=== PATIENT | male | born 1935 | race Caucasian/White ===

== ENCOUNTER → 2023-05-16 09:05 | Outpatient (REF) | payer OTHER, SELFPAY ==
[2023-05-16 09:40] LABS: % Basophils 1.2 % (0-2); % Eosinophils 4.8 % (0-6); % Immature Granulocytes 0.2 % (0-0.5); % Lymphocytes 22.7 % (20.5-51.1); % Monocytes 9.2 % (1.7-9.3); % Neutrophils 61.9 % (42.2-75.2); Absolute Basophils 0.1 10^3/uL (0-0.2); Absolute Eosinophils 0.2 10^3/uL (0-0.7); Absolute Lymphocytes 0.9 10^3/uL (1.2-3.4); Absolute Monocytes 0.4 10^3/uL (0.1-0.6); Absolute Neutrophils 2.6 10^3/uL (1.4-6.5); Hematocrit 41.3 % (39.0-52.0); Mean Corp Hgb Conc. 33.9 g/dL (33.0-37.0); Mean Corpuscular Hgb 31.7 pg (27.0-31.0); Mean Corpuscular Volume 93.7 fL (80.0-94.0); Mean Platelet Volume 10.1 fL (7.4-10.4); Nucleated Red Blood Cells % 0 % (-); Platelet Count 171 10^3/uL (130-400); Red Blood Cell Count 4.41 10^6/uL (4.70-6.10); Red Cell Dist. Width 13.2 % (11.5-14.5); White Blood Cell Count 4.1 10^3/uL (4.8-10.8)
[2023-05-16 09:58] LABS: Glycohemoglobin (HgbA1c) 5.8 % (4.0-5.6)
[2023-05-16 10:30] LABS: ALT (SGPT) 22 U/L (0-50); AST (SGOT) 34 U/L (17-59); Albumin 3.6 g/dl (3.5-5.0); Alkaline Phosphatase 78 U/L (38-126); Blood Urea Nitrogen 30 mg/dl (9-20); Calcium 9.1 mg/dl (8.4-10.2); Carbon Dioxide 29 mmol/L (22-30); Chloride 104 mmol/L (98-107); Glucose 97 mg/dl (70-99); HDL Cholesterol 95 mg/dl; LDL Cholesterol, Calculated 101 mg/dl; Potassium 4.4 mmol/L (3.5-5.1); Sodium 138 mmol/L (135-145); Total Bilirubin 1.1 mg/dl (0.2-1.3); Total Cholesterol 208 mg/dl (50-199); Total Protein 6.6 g/dl (6.3-8.2); Triglyceride 61 mg/dl (10-149); Very Low Density Lipoprotein 12 mg/dl (0-30); eGFR 39.02
[2023-05-16 11:27] LABS: Urine Albumin Negative (Neg - Trace); Urine Bilirubin Negative (Negative); Urine Character Clear (Clear); Urine Color Yellow; Urine Glucose Negative (Negative); Urine Ketone Negative (Negative); Urine Leukocyte Negative (Negative); Urine Nitrite Negative (Negative); Urine Occult Blood Trace (Negative); Urine Specific Gravity 1.015 (<1.030); Urine Urobilinogen Negative (Neg - 1+); Urine pH 6.5 (5.0-9.0)
[2023-05-16 12:12] LABS: Urine Amorphous Seen; Urine Mucus Few
[2023-05-16 12:13] LABS: Urine Red Blood Cell 0-2 /HPF (0-2); Urine White Cell 0-2 /HPF (0-5)
== END ==
LOC: REG 09:05
PROVIDERS: ATTENDING PHYSICIAN Internal Medicine
DX: I10 Essential (primary) hypertension (principal); R73.01 Impaired fasting glucose; I48.91 Unspecified atrial fibrillation
CPT/HCPCS: 36415; 80053; 80061; 81003; 81015; 83036; 84443; 85025

== ENCOUNTER → 2023-07-31 06:39 | Outpatient (REF) | payer OTHER, SELFPAY ==
[2023-07-31 07:18] LABS: % Basophils 1.3 % (0-2); % Immature Granulocytes 0.5 % (0-0.5); % Lymphocytes 24.9 % (20.5-51.1); % Monocytes 9.8 % (1.7-9.3); % Neutrophils 61.5 % (42.2-75.2); Absolute Basophils 0.1 10^3/uL (0-0.2); Absolute Eosinophils 0.1 10^3/uL (0-0.7); Absolute Lymphocytes 1.6 10^3/uL (1.2-3.4); Absolute Monocytes 0.6 10^3/uL (0.1-0.6); Absolute Neutrophils 3.9 10^3/uL (1.4-6.5); Hematocrit 40.1 % (39.0-52.0); Hemoglobin 13.4 g/dL (13.0-18.0); Mean Corp Hgb Conc. 33.4 g/dL (33.0-37.0); Mean Corpuscular Hgb 31.5 pg (27.0-31.0); Mean Corpuscular Volume 94.1 fL (80.0-94.0); Mean Platelet Volume 9.5 fL (7.4-10.4); Nucleated Red Blood Cells % 0 % (-); Platelet Count 208 10^3/uL (130-400); Red Blood Cell Count 4.26 10^6/uL (4.70-6.10); Red Cell Dist. Width 13.5 % (11.5-14.5); White Blood Cell Count 6.4 10^3/uL (4.8-10.8)
[2023-07-31 07:55] LABS: ALT (SGPT) 26 U/L (0-50); AST (SGOT) 32 U/L (17-59); Albumin 3.6 g/dl (3.5-5.0); Alkaline Phosphatase 90 U/L (38-126); Blood Urea Nitrogen 29 mg/dl (9-20); Carbon Dioxide 30 mmol/L (22-30); Chloride 106 mmol/L (98-107); Glucose 93 mg/dl (70-99); Potassium 4.6 mmol/L (3.5-5.1); Sodium 139 mmol/L (135-145); Total Bilirubin 0.7 mg/dl (0.2-1.3); Total Protein 6.5 g/dl (6.3-8.2); eGFR 39.02
== END ==
LOC: REG 06:39
PROVIDERS: ATTENDING PHYSICIAN Specialist; FAMILY PHYSICIAN Internal Medicine
DX: C65.2 Malignant neoplasm of left renal pelvis (principal)
CPT/HCPCS: 80053; 85025

== ENCOUNTER → 2023-08-06 06:59 | Outpatient (REF) | payer OTHER, SELFPAY | LOC: RAD 06:59 | PROVIDERS: ATTENDING PHYSICIAN Specialist; FAMILY PHYSICIAN Internal Medicine | DX: C65.2 Malignant neoplasm of left renal pelvis (principal) | CPT/HCPCS: 74176 ==

== ENCOUNTER → 2023-08-29 06:38 | Outpatient (REF) | payer OTHER, SELFPAY ==
[2023-08-29 07:28] LABS: % Basophils 1.6 % (0-2); % Eosinophils 4.8 % (0-6); % Immature Granulocytes 0.5 % (0-0.5); % Lymphocytes 18.6 % (20.5-51.1); % Monocytes 10.2 % (1.7-9.3); % Neutrophils 64.3 % (42.2-75.2); Absolute Basophils 0.1 10^3/uL (0-0.2); Absolute Eosinophils 0.4 10^3/uL (0-0.7); Absolute Lymphocytes 1.4 10^3/uL (1.2-3.4); Absolute Monocytes 0.8 10^3/uL (0.1-0.6); Absolute Neutrophils 4.7 10^3/uL (1.4-6.5); Hematocrit 37.4 % (39.0-52.0); Hemoglobin 12.9 g/dL (13.0-18.0); Mean Corp Hgb Conc. 34.5 g/dL (33.0-37.0); Mean Corpuscular Hgb 31.9 pg (27.0-31.0); Mean Corpuscular Volume 92.3 fL (80.0-94.0); Mean Platelet Volume 9.3 fL (7.4-10.4); Nucleated Red Blood Cells % 0 % (-); Platelet Count 267 10^3/uL (130-400); Red Blood Cell Count 4.05 10^6/uL (4.70-6.10); Red Cell Dist. Width 13.3 % (11.5-14.5); White Blood Cell Count 7.3 10^3/uL (4.8-10.8)
[2023-08-29 07:31] LABS: Urine Albumin Negative (Neg - Trace); Urine Bilirubin Negative (Negative); Urine Character Clear (Clear); Urine Color Yellow; Urine Glucose Negative (Negative); Urine Ketone Negative (Negative); Urine Leukocyte Negative (Negative); Urine Nitrite Negative (Negative); Urine Occult Blood Trace (Negative); Urine Specific Gravity 1.015 (<1.030); Urine Urobilinogen Negative (Neg - 1+); Urine pH 6.5 (5.0-9.0)
[2023-08-29 08:07] LABS: ALT (SGPT) 20 U/L (0-50); AST (SGOT) 41 U/L (17-59); Albumin 3.4 g/dl (3.5-5.0); Alkaline Phosphatase 87 U/L (38-126); Blood Urea Nitrogen 27 mg/dl (9-20); Carbon Dioxide 24 mmol/L (22-30); Chloride 107 mmol/L (98-107); Glucose 99 mg/dl (70-99); Potassium 4.7 mmol/L (3.5-5.1); Sodium 135 mmol/L (135-145); Total Protein 6.6 g/dl (6.3-8.2); eGFR 33.93
[2023-08-29 08:17] LABS: Erythrocyte Sed Rate 43 mm/hour (0-20)
[2023-08-29 08:28] LABS: TSH Reflex To Free T4 2.66 uIU/ml (0.47-4.68)
[2023-08-29 08:33] LABS: Urine Red Blood Cell 0-2 /HPF (0-2)
[2023-08-29 08:34] LABS: Urine White Cell 0-2 /HPF (0-5)
== END ==
LOC: REG 06:38
PROVIDERS: ATTENDING PHYSICIAN Internal Medicine
DX: R05.1 Acute cough (principal); R73.01 Impaired fasting glucose; I10 Essential (primary) hypertension; R53.83 Other fatigue; N30.00 Acute cystitis without hematuria; M31.6 Other giant cell arteritis
CPT/HCPCS: 36415; 71046; 80053; 81003; 81015; 84443; 85025; 85652

== ENCOUNTER → 2023-09-05 15:12 | Outpatient (REF) | payer OTHER, SELFPAY | LOC: RCS 15:12 | PROVIDERS: ATTENDING PHYSICIAN Internal Medicine Cardiovascular Disease; FAMILY PHYSICIAN Internal Medicine | DX: Z95.2 Presence of prosthetic heart valve (principal) | CPT/HCPCS: 93306 ==

== ENCOUNTER 2023-09-08 16:17 | Inpatient (IN) | payer OTHER, SELFPAY ==
[2023-09-08 10:20] VITALS: BMI 25.5
[2023-09-08 10:25] VITALS: BP 101/65
[2023-09-08 10:58] LABS: % Eosinophils 2.7 % (0-6); % Immature Granulocytes 0.3 % (0-0.5); % Lymphocytes 14.8 % (20.5-51.1); % Monocytes 11.7 % (1.7-9.3); % Neutrophils 69.5 % (42.2-75.2); Absolute Basophils 0.1 10^3/uL (0-0.2); Absolute Eosinophils 0.2 10^3/uL (0-0.7); Absolute Lymphocytes 1.2 10^3/uL (1.2-3.4); Absolute Monocytes 0.9 10^3/uL (0.1-0.6); Absolute Neutrophils 5.4 10^3/uL (1.4-6.5); Hematocrit 39.3 % (39.0-52.0); Hemoglobin 13.3 g/dL (13.0-18.0); Mean Corp Hgb Conc. 33.8 g/dL (33.0-37.0); Mean Corpuscular Hgb 30.9 pg (27.0-31.0); Mean Corpuscular Volume 91.4 fL (80.0-94.0); Mean Platelet Volume 9.5 fL (7.4-10.4); Nucleated Red Blood Cells % 0 % (-); Platelet Count 248 10^3/uL (130-400); Red Cell Dist. Width 13.6 % (11.5-14.5); White Blood Cell Count 7.8 10^3/uL (4.8-10.8)
[2023-09-08 11:18] LABS: ALT (SGPT) 17 U/L (0-50); AST (SGOT) 41 U/L (17-59); Albumin 3.5 g/dl (3.5-5.0); Alkaline Phosphatase 80 U/L (38-126); Blood Urea Nitrogen 38 mg/dl (9-20); Calcium 9.2 mg/dl (8.4-10.2); Carbon Dioxide 27 mmol/L (22-30); Chloride 107 mmol/L (98-107); Glucose 112 mg/dl (70-99); Potassium 4.6 mmol/L (3.5-5.1); Sodium 140 mmol/L (135-145); Total Bilirubin 1.2 mg/dl (0.2-1.3); Total Protein 6.9 g/dl (6.3-8.2); eGFR 28.46
[2023-09-08 11:27] LABS: NT-proBNP 742 pg/ml
--- NOTE | 2023-09-08 11:34 | ED.GENMED ---
History of Present Illness
General
Chief Complaint: Weakness
Source: patient and spouse
Exam Limitations: none
Time Seen by Provider: 09/08/23 11:19
Nursing documentation reviewed up to this point in time: agreed with
History of Present Illness
History of Present Illness:
88-year-old male presents emergency department due to decreased energy, and unable to tolerate ambulation. He states he was recently diagnosed with congestive heart failure by his family physician. He follows with Dr. Ring, and has had
multiple ablations for A-fib.
Past History
Past History
ED Past Medical History: Other (Kidney stones)
ED Past Surgical History: Cardiac (Porcine valve replacement) and Other (Cystoscopy with ureteral stone removal, and stent placement)
Social History
Tobacco: Non-smoker
Alcohol: Occasional
Personal:
Living: with family
Employment: Retired
Family History
Family History: Negative CAD
Review of Systems
Review of Systems
Allergies reviewed?: Yes
All Other Systems: Not applicable
Constitutional: Reports no symptoms
EENT: Reports no symptoms
Respiratory: Reports trouble breathing
Cardiac: Reports no symptoms
ABD/GI: Reports no symptoms
: Reports no symptoms
Musculoskeletal: Reports no symptoms
Skin: Reports no symptoms
Neurological: Reports no symptoms
Endocrine: Reports no symptoms
Hematologic/Lymphatic: Reports no symptoms
Psychiatric: Reports no symptoms
Phy Exam
Physical Exam
Physical Exam:
Physical Exam
General: Afebrile
Neck: supple. no meningeal signs. normal posterior pharynx
Heart: s1/s2 regular rate and rhythm, no murmur. equal radial
pulses.
HEENT: Pupils equal round reactive to light, EOMI
Lungs: Moderate respiratory distress. clear bilaterally
Abdomen: normal bowel sounds. not tender. no CVAT
Neuro: alert and oriented. no focal neurological deficits cranial nerves II through XII intact
Skin: no rash
Psychiatric: well kept. interactive and cooperative
Extremities: no edema. no calf tenderness. negative homans. good distal pulses
Scores
Heart Failure Risk
Heart Failure Risk Score: Yes
History of Stroke or TIA: No
History of intubation for respiratory distress: No
Heart rate on ED arrival >/= 110: No
SaO2 <90% on arrival on room air: Yes
HR >/=110 during 3min walk test (or too ill to perform test): Yes
ECG has acute ischemic changes: No
Urea >/=12mmol/L (BUN 33.6mg/dL): Yes
Serum CO2>/=35mmol/L: No
Troponin I or T elevated to MT Level (0.4mg/dL): No
NT-proBNP >/=5,000ng/L (5,000pg/ml): No
HF Risk Score: 4
Admission Status: HIGH RISK 26.1% Consider SNF treatment or admission to hospital
Course
Orders/Labs/Results
Orders:
Orders
09/08/23 10:30
Electrocardiogram (*1) Urgent
Reason for Study: Shortness of Breath
EKG- Treatment ONCE
09/08/23 10:37
CMP [Comprehensive Metabolic Panel] Urgent
Complete Blood Count/With Diff Urgent
NT-proBNP Urgent
Troponin I Urgent
Comment: ADD ON
09/08/23 11:33
Add On- LAB Urgent
Tests Added?: troponin
CR Chest - 2 Views Urgent
Comment:
Reason For Exam: short of breath
09/08/23 12:28
Furosemide [Lasix] 40 mg IV NOW STA
09/08/23 Dinner
Cholesterol Lowering
Fluid Restriction: 1920 mL/day (64 oz)
Cholesterol Lowering: Sodium, 2 Gram
09/08/23 15:32
Admit/Transfer Patient As Directed
Co-Sign Provider:
Level of Care: Inpatient admission
Assign to:: Telemetry
Physician / Group: Dr. Salvatore Jalloh/Hospitalists
Diagnosis: Hypoxia, Concern for CHF
Reason for Telemetry: Acute Heart Failure
Date to Stop Telemetry: 09/11/23
Time to Stop Telemetry: 11:00
Reason for Hospitalization: Hypoxia, Concern for CHF
Expected length of stay greater than two midnights?: Yes
ELOS- Estimated Length of Stay in days: 3
I certify the patient meets the requirements for IP care: Yes
09/08/23 15:33
Code Status As Directed
Resuscitation Status: Full Code
09/08/23 15:41
CARDIOLOGY CONSULT Routine
Consulting Provider: Vanita Rueda
Was physician already notified: Yes
Reason for consult: New-Onset CHF?
09/08/23 15:42
PULMONARY CONSULT Routine
Consulting Provider: Ryan Martínez
Was physician already notified: Yes
Reason for consult: Recent Hemoptysis and wt loss, even after finishing Lasix continued wt loss
09/08/23 17:21
Troponin I Q6H
Bisacodyl [Dulcolax] 10 mg RECTAL [id number] PRN
Docusate W/Senna [Senokot-S] 1 tablet PO BIDPRN PRN
Polyethylene Glycol Powder [Miralax] 17 grams PO DAILYPRN PRN
Zolpidem Tartrate [Ambien] 5 mg PO HSPRN PRN
09/08/23 17:21
Activity As Directed
Activity Level: As Tolerated
Intake/ Output As Directed
Frequency: q12h
Pneumatic Compression Sleeves As Directed
Type: Knee high
Vital Signs As Directed
Frequency: Per unit guidelines
Weight As Directed
Frequency: Daily
O2 Therapy [RESP] Routine
Titrate/Wean O2 to maintain O2 sat greater than (%): 91
DX Deep Vein Thrombosis Video Routine
09/08/23 18:00
simvastatin 10 mg PO QPM
09/08/23 20:00
Apixaban [Eliquis] 5 mg PO BID
09/08/23 22:00
Amiodarone [Pacerone] 200 mg PO HS
Finasteride [Proscar] 5 mg PO HS
09/08/23 23:21
Troponin I Q6H
09/09/23 05:21
Troponin I Q6H
09/09/23 06:00
Basic Metabolic Panel IN AM
Complete Blood Count/No Diff IN AM
Magnesium IN AM
09/09/23 08:00
Furosemide [Lasix] 40 mg IV BID AT 0800,1600
[id number] C-Mn [Glucosamine Chondroitin MaxStr] 1 cap PO DAILY
09/09/23 11:21
Troponin I Q6H
09/09/23 17:21
Troponin I Q6H
09/09/23 23:21
Troponin I Q6H
09/10/23 06:00
Basic Metabolic Panel IN AM
Complete Blood Count/No Diff IN AM
Magnesium IN AM
09/11/23 06:00
Basic Metabolic Panel IN AM
Complete Blood Count/No Diff IN AM
09/11/23 11:00
DC Protocol for Telemetry ONCE
09/12/23 06:00
Basic Metabolic Panel IN AM
Complete Blood Count/No Diff IN AM
09/13/23 06:00
Basic Metabolic Panel IN AM
Complete Blood Count/No Diff IN AM
09/14/23 06:00
Basic Metabolic Panel IN AM
Complete Blood Count/No Diff IN AM
09/15/23 06:00
Basic Metabolic Panel IN AM
Complete Blood Count/No Diff IN AM
09/16/23 06:00
Basic Metabolic Panel IN AM
Complete Blood Count/No Diff IN AM
09/17/23 06:00
Basic Metabolic Panel IN AM
Complete Blood Count/No Diff IN AM
09/18/23 06:00
Basic Metabolic Panel IN AM
Complete Blood Count/No Diff IN AM
Abnormal Lab Results
09/08/23
10:37
RBC 4.30 L 10^6/uL
(4.70-6.10)
Absolute Monos (auto) 0.9 H 10^3/uL
(0.1-0.6)
Lymphocytes % 14.8 L %
(20.5-51.1)
Monocytes % 11.7 H %
(1.7-9.3)
BUN 38 H mg/dl
(9-20)
Creatinine 2.2 H mg/dL
(0.7-1.3)
Glucose 112 H mg/dl
(70-99)
09/08/23 10:37
09/08/23 10:37
Vital Signs
Initial and Last Documented VS:
Initial Vital Signs
Temp Pulse Resp BP Pulse Ox
97.7 F 75 20 101/65 90
09/08/23 10:25 09/08/23 10:25 09/08/23 10:25 09/08/23 10:25 09/08/23 10:25
Last Documented Vital Signs
Temp Pulse Resp BP Pulse Ox
97.7 F 71 23 133/82 94
09/08/23 10:25 09/08/23 14:15 09/08/23 14:15 09/08/23 13:00 09/08/23 14:15
MDM/Problems Addressed
Differential Diagnosis Includes:
CHF, pneumonia
MDM/Problems Addressed:
88-year-old male with CHF exacerbation. IV Lasix given. Admit to hospitalist.
Chronic conditions affecting care: Cardiomyopathy and Arrhythmia
Acute Exacerbation and/or Progression of Chronic Illness: Cardiomyopathy and Arrhythmia
*Radiology
Radiology exam reviewed: radiology read reviewed (Chest x-ray 08/29/2023 shows CHF)
*Pulse Oximetry
Patient hypoxic: yes
*EKG
Interpreted by ED Provider?: Yes
EKG Intrepretation Date: 09/08/23
EKG Intrepretation Time: 10:34
Interpretation: normal
Comparison EKG: no changes
Heart Rate: 73
Rate: normal
Rhythm: sinus
Spring: left axis deviation
Interval: normal interval
QRS Pattern: left vent hypertrophy
Ischemia: no ischemia
*Nurse Anesthetist Interpretation
Rate: normal
Interpretation: normal
Heart Rate: 70
Rhythm: sinus
*Critical Care Note
Total Time (30-74mins, 75-104mins- exclusive of procedures): Not Applicable
Data Reviewed
Further Testing Considered But Not Given:
CT chest not indicated
Patient Management
Social determinants of health affecting care: Living situation
Discussion with other providers: Hospitalist
Escalation/DeEscalation of care consider admission/obs:
Admit indicated
ED Attending Note
-
Portions of this chart may have been created with voice recognition software.� Occasional wrong word or��sound alike� substitutions may have occurred due to the inherent limitations of voice recognition software.
Discharge Plan
Departure
Patient Disposition: Admit
Date of Disposition: 09/08/23
Time of Disposition: 12:28
Admit to: Telemetry
Presentation/result/management discussed w/ accepting MD/DO: Hospitalist
Patient with high blood pressure during this ER visit?: No
Condition: Fair
Discharge Problem:
Acute exacerbation of CHF (congestive heart failure)
Interventions
Interventions:
*General Assessment Last Done: 09/08/23 10:25
ED- Fall Risk Assessment Last Done: 09/08/23 11:26
*ED COVID-19 Vaccine History Last Done: 09/08/23 10:25
ED- Cardiac Assessment Last Done: 09/08/23 11:26
ED- Neurological Assessment Last Done: 09/08/23 11:26
ED- Pulmonary Assessment Last Done: 09/08/23 11:26
[2023-09-08 12:39] VITALS: BP 111/78
[2023-09-08] MEDS: LASIX 40 MG IV (12:54)
[2023-09-08 13:00] VITALS: BP 133/82
--- NOTE | 2023-09-08 14:49 | HPS.HSE ---
Family Physician
-
Family Physician: Brant Kruse
Chief Complaint
-
Decreased energy, shortness of breath with exertion
History of Present Illness
88 y/o male with past medical history of a-fib status post cardioversion, atrial tachycardia, atrial valve repair, aortic valve replacement 2007, LBBB intra-op, nephrolithiasis, cystoscopy with ureteral stone removal, and stent placement, bladder
cancer, multiple TURBTs, robotic partial prostatectomy, bilateral robotic inguinal hernia repair, robotic left nephroureterectomy, BPH, hyperlipidemia, and cardiac porcine valve replacement presented with weight loss and shortness of breath with
exertion. Patient says his symptoms started about 2 to 3 weeks ago when he was coughing up blood (2 episodes) and a CXR 2 weeks ago suggested CHF, therefore he was started on Lasix which was given for 3 days. He is reporting shortness of breath on
exertion, but not at rest. He has lost 9 lbs over the past 9 days, but has continued to lose weight despite stopping Lasix. Patient has been taking his Eliquis at home. In the ER, he was requiring 3 liters of NC oxygen, he does not usually wear
oxygen at home.
Medical History
Past Medical History
Past Medical History: Reports Other (As per HPI above)
Past Surgical History: Reports Other (As per HPI above)
Social History
Tobacco: Non-smoker
Alcohol: None
Drug: None
Family History
Family History: Not pertinent
Allergies / Home Medications
Allergies reflects when Allergies were last updated in [facility].
Home Medications with original date entered in [facility]
Allergy/Medication List:
Allergies
Allergy/AdvReac Type Severity Reaction Status Date / Time
No Known Allergies Allergy Verified 09/08/23 10:30
Home Medications
finasteride 5 mg tablet 5 mg PO HS prostate 05/25/10
simvastatin 10 mg tablet 10 mg PO QPM High cholesterol 09/04/19
apixaban 5 mg tablet (Eliquis) 5 mg PO BID Blood Clot Prevention/Tx 04/20/20
amiodarone 200 mg tablet 200 mg PO HS Arrhythmia 07/20/22
zolpidem 5 mg tablet 5 mg PO HSPRN PRN sleep 09/12/22
lywsiyjmzai-cqufmgexk-frd C-Mn 500 mg-400 mg capsule (Glucosamine Chondroitin Maximum Strength) 1 cap PO DAILY 02/19/23
Review of Systems
-
A 12 point ROS was completed and negative except as noted: Yes
Physical Exam
Vital Signs
Vital Signs
Temp Pulse Resp BP Pulse Ox
97.7 F 71 23 133/82 94
09/08/23 10:25 09/08/23 14:15 09/08/23 14:15 09/08/23 13:00 09/08/23 14:15
Physical Exam
General: No Apparent Distress
HEENT: NormoCephalic, Moist mucous membranes and Atraumatic
Respiratory: Clear
Cardiac: S1/S2 and Regular Rhythm
GI: Soft, Non Tender and Normal Bowel Sounds
Musculoskeletal: No Cyanosis and No Edema
Skin: Warm and Dry
Psych: Calm and Intact Judgment/Insight
Laboratory Results
-
09/08/23 10:37
09/08/23 10:37
Laboratory Results
Total Bilirubin 1.2 mg/dl (0.2-1.3) 09/08/23 10:37
AST 41 U/L (17-59) 09/08/23 10:37
ALT 17 U/L (0-50) 09/08/23 10:37
Alkaline Phosphatase 80 U/L (38-126) 09/08/23 10:37
Troponin I 0.020 ng/ml 09/08/23 10:37
Impression/Plan
-
Assessment/Plan

Echocardiogram 09/05/23 report, as per cardiology:
CONCLUSIONS
Normal left ventricular size and systolic function. No regional wall motion
abnormalities are seen. LV ejection fraction is 60-65% by Cooney's method of
discs. Mild concentric left ventricular hypertrophy. Stage III diastolic
dysfunction suggestive of restrictive filling pattern and increased filling
pressures.
Dilated right ventricle with normal systolic function.
Severely dilated atria.
Mild to moderate mitral regurgitation.
Well-seated #23 mm stentless freestyle aortic valve with peak/mean gradients at
10/5 mmHg.
Moderate tricuspid regurgitation. Estimated pulmonary artery pressure of 57
mmHg assuming a right atrial pressure of 3 mmHg.
Compared to prior study dated 09/23/2019, there is no significant change, prior
aortic valve gradients were peak/mean 9/5 mmHg

Acute Hypoxic Respiratory Insufficiency
Shortness of Breath on Exertion
Concern for New-Onset CHF
Transient Hemoptysis a Few Weeks Ago
-Recently was told by his PCP that he may have new-onset CHF
-He took Lasix outpatient for 3 days, about 1 week prior to presentation, but developed worsening shortness of breath after finishing his 3-day Lasix course
-Weight today is 90 kg, on August 21, 2023 it was 92 kg
-CXR suggest CHF
-proBNP 742: indeterminate given his age
-Echo was done on 09/05/23, results ar above
-Trend troponins
-Continue IV Lasix
-Daily weights
-I's and O's
JUAN vs. CKD
-Monitor BMP with diuresis
Weight Loss During the 9 days prior to presentation
-Patient was given Lasix by outpatient provider for 3 days about 1 week prior to presentation, lost weight while taking it, but continued to lose weight for the several days after stopping Lasix
A-fib status post cardioversion
Atrial tachycardia
Atrial valve repair
-Monitor on telemetry
-Continue Amiodarone
-Continue home Eliquis
Aortic valve replacement 2007
History of LBBB intra-op
Nephrolithiasis
Cystoscopy with ureteral stone removal, and stent placement
Bladder cancer status post multiple TURBTs
Robotic partial prostatectomy
Bilateral robotic inguinal hernia repair
Robotic left nephroureterectomy
BPH
-Continue Finasteride
Hyperlipidemia
-Continue Simvastatin
Cardiac porcine valve replacement
DVT PPx: Eliquis
Code Status: Full Code
--- NOTE | 2023-09-08 16:24 | CON.PUL ---
Consultation
Consultation Request
Date/Time Consultation Requested: 09-08-23
Date/Time Consultation Performed: 09-08-23
Requesting Provider: Hospitalist Gayla
Performing Provider: Dr Martínez
Reason for Consultation: dyspnea
Medical History
-
Chief Complaint: dyspnea
History of Present Illness:
Mr Omari Trivedi is a delightful 88/M adm 09-07 with a 3 wk h/o worsening dyspnea on decreasing levels of exertion.
2.5 wks ago, he developed a brief episode of cough productive of few streaks of red blood, the next morning a minute clot was expectorated, no further eventes since then.
He cut tree branches in his property last week, a chore that usually takes him 1.5 hrs, though he has done it before even in hot weather, it took him a couple of mornings to complete the task.
For last few days he developed ACUÑA while climbing stairs at home. Denies CP, wheezing, dizziness, fever, presyncopal symptoms, ANGELIQUE edema.
During the recent wave of hot weather he was drinking a higher than usual volume of carbonated juice. CXR on 08-28 suggested heart failure and was given a 3 d course of lasix without significant improvement
At ER, POx 90% on RA, afebrile, low normal BP, required 3L O2 by NC, received one IV dose of lasix at 40 mg. Seen at telemetry, accompanied by his kind Patience. Reports improvement of dyspnea, calm, cooperative
Nonsmoker
Past Medical History
Past Medical History: Other (see A&P for PMH/PSH)
Social History
Tobacco: Non-smoker
Alcohol: None
Drug: None
Personal:
Living: With Family
Employment: Retired
Family History
Family History: Reviewed & Not Pertinent
Allergies / Home Medications
Allergies
Allergy/AdvReac Type Severity Reaction Status Date / Time
No Known Allergies Allergy Verified 09/08/23 10:30
Home Medications
�Medication �Instructions �Recorded �Confirmed �Last Taken �Type
finasteride 5 mg tablet 5 mg PO HS prostate 05/25/10 09/08/23 09/07/23 History
simvastatin 10 mg tablet 10 mg PO QPM High cholesterol 09/04/19 09/08/23 09/07/23 History
apixaban 5 mg tablet (Eliquis) 5 mg PO BID Blood Clot 04/20/20 09/08/23 09/08/23 History
Prevention/Tx
amiodarone 200 mg tablet 200 mg PO HS Arrhythmia 07/20/22 09/08/23 09/07/23 History
zolpidem 5 mg tablet 5 mg PO HSPRN PRN sleep 09/12/22 09/08/23 02/22/23 00:00 History
kfxqebievnj-dgkpjrzvc-wbz C-Mn 500 1 cap PO DAILY 02/19/23 09/08/23 09/08/23 History
mg-400 mg capsule (Glucosamine
Chondroitin Maximum Strength)
Review of Systems
-
History Source: Patient
All other systems: Negative unless noted
Constitutional: Fatigue
Respiratory: Trouble Breathing
Neuro: Weakness
Vitals / Labs / Diagnostic Testing
Vital Signs
Temp Pulse Resp BP Pulse Ox
97.7 F 71 23 133/82 94
09/08/23 10:25 09/08/23 14:15 09/08/23 14:15 09/08/23 13:00 09/08/23 14:15
Lab Data
09/08/23 10:37
09/08/23 10:37
Diagnostic Testing:
Physical Exam
-
HEENT: Normocephalic, Moist Mucous Membranes and Thrush (n)
Cardiovascular: Regular Rhythm, Peripheral Edema (n), Calf Tenderness (n) and JVD (trace)
Respiratory: Wheeze (n), Rales (posterior basilar), Rhonchi (n) and Accessory Resp Muscle Use (trace)
GI: Soft, Non Distended, Non Tender and Normal Bowel Sounds
Neurology: Awake, AO x 3 and No Motor Deficits
Skin: Warm
General: Respiratory Distress (trace)
Assessment
-
Assessment:
Mr Omari Trivedi is a delightful 88/M adm 09-07 with a 3 wk h/o worsening dyspnea on decreasing levels of exertion. 2.5 wks ago, he developed a brief episode of cough productive of few streaks of red blood, the next morning a minute clot was
expectorated, no further eventes since then. He cut tree branches in his property last week, a chore that usually takes him 1.5 hrs, though he has done it before even in hot weather, it took him a couple of mornings to complete the task. For last
few days he developed ACUÑA while climbing stairs at home. Denies CP, wheezing, dizziness, fever, presyncopal symptoms, ANGELIQUE edema. During the recent wave of hot weather he was drinking a higher than usual volume of carbonated juice. CXR on 08-28
suggested heart failure and was given a 3 d course of lasix without significant improvement
At ER, POx 90% on RA, afebrile, low normal BP, required 3L O2 by NC, received one IV dose of lasix at 40 mg. Seen at telemetry, accompanied by his kind Patience. Reports improvement of dyspnea, calm, cooperative
Impression:
HFpEF: pulmonary edema
Diastolic dysfunction
Mild to moderate MReg
Negative troponin
BNP normal for age
A/CKI
S/p mild self-limited hemoptysis 2.5 wks MAGNETIC DOCTOR
Conditions MAGNETIC DOCTOR:
AFib s/p CV, on apixaban, amiodarone at 200 mg qd
Atrial tachycardia
Biological AV replacement 2007 [facility]
Nephrolithiasis, cystoscopy with ureteral stone removal, and stent placement
Bladder cancer
Multiple TURBTs, robotic partial prostatectomy (BPH), bilateral robotic inguinal hernia repair, robotic left nephroureterectomy
HLD
Nonsmoker
SHAILESH calcified 6.3 mm nodule
Plan:
Continue O2 protocol
New onset O2 at 3L, POx 98%
Evaluate O2 needs PTD
Asp precs
IS
Albuterol nebs tid prn
HFpEF: pulmonary edema
Diastolic dysfunction
Mild to moderate MReg
CXR 09-07 c/w 12 and films from Feb 2021 and Mar 2016: old films with no pulm abnormalities slight volume loss at L base and chronic sternotomy wiring. Latest two films with worsening pulm and vasc congestion consistent with evolving pulmonary edema
Chest CT s/c 05-03-21 with normal lung parenchyma x calcified 6.3 mm nodule at SHAILESH. Prominent azygos vein
CT abd/p 09-06-23 with lung bases showing mild increase lung water content and mosaic pattern consistent with incipient pulm edema
CT abd/p Jan 2023 with normal lung bases
CXR in AM, PA/lat, ordered
TTE 09-04: LVEF 60-65%, WMAs, stage III DD, dilated RV with normal systolic function, mild to mod MR. Well-seated #23 mm stentless freestyle aortic valve with peak/mean gradients at 10/5 mmHg. Mod TR. C/w09/23/2019, there is no significant change
Continue diuretic IV
Limited oral intake of fluids and salt
Monitor UO, wt, resp status, Cr
Trend trops and BNP
Doubt amiodarone toxicity, continue oral dose
S/p mild self-limited hemoptysis 2.5 wks MAGNETIC DOCTOR
Continue AC (AFib)
Monitor for hemoptysis, d/w RN, to provide container with lid to collect sputum
Observe off atbs or CSs
Full code
Discussed in detail with Mr Trivedi and his kind Patience at bedside, all questions answered to satisfaction
[2023-09-08 18:30] VITALS: BP 120/75; BMI 24.2
[2023-09-08 19:40] VITALS: BMI 24.2
[2023-09-08 20:25] VITALS: BP 99/56
[2023-09-08 20:42] LABS: Troponin I 0.022 ng/ml
[2023-09-08] MEDS: ELIQUIS 2.5 MG PO (20:55)
[2023-09-08] MEDS: LIPITOR 10 MG PO (20:55)
--- NOTE | 2023-09-08 20:55 | CON.CAR ---
Consultation
Consultation Request
Date/Time Consultation Requested: 09/08/23
Date/Time Consultation Performed: 09/08/23
Requesting Provider: Dr. Jalloh
Performing Provider: Dr. Rueda
Reason for Consultation: Worsening dyspnea on exertion/shortness of breath
Medical History
-
Chief Complaint: Worsening shortness of breath and dyspnea on exertion
History of Present Illness:
HPI: Omari is an 88 year old male who follows routinely with my colleague, Dr. Richardson Ring. 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
[facility]. He was recently found to have recurrent bladder tumors and had been scheduled for a repeat cystoscopy which was canceled secondary to worsening shortness of breath over the last month. He did have COVID-19 back in 2021 and felt that the
worsening of his shortness of breath was related to long-haul COVID. He denies recent URI/COVID or influenza. Approximately 3 weeks ago he had 2 episodes of hemoptysis after aggressive coughing first thing in the morning. He has had no recurrent
hemoptysis. Over last weekend he was prescribed Lasix which he took over 3 days with perhaps slightly improved symptoms. He did not continue the Lasix. This past week, he wanted to get trees trimmed on his property and spent hours outside trying
to complete this chore. He states that although he was trying to stay hydrated he was quite short of breath. Following this his shortness of breath worsened with activity such as walking up and down the stairs which she is usually able to do
without difficulty. The day of admission he developed extreme dyspnea on exertion that required him to lay down following walking up stairs. He called our office on September 05 and referred to the emergency department. He denies chest pain or
pressure. He denies orthopnea or PND. He denies wheezing. He denies fevers or chills. He denies lower extremity edema. He has had no recent interruption of anticoagulation or recent travel. He is tentatively scheduled for bladder tumor removal
September [address] Wilburn. Patient is a non-smoker and does not routinely follow with pulmonary.
Recent outpatient cardiac testing:
- 2D echocardiogram 09/05/2023: Normal left ventricular size and systolic function with no regional wall motion abnormality and EF estimated 60-65%. Mild LVH. Grade 3 diastolic dysfunction with increased LV filling pressures. Dilated right
ventricle with normal RV systolic function. Severely dilated atria. Mild to moderate MR. Well-seated number 23 mm stentless freestyle aortic valve with peak/mean gradients 10/5 mmHg. Moderate TR. Estimated pulmonary artery pressure 57 mmHg.
-A classroom monitor was also completed this past month however records are not available for my review
-Lexiscan stress test at [place] dated 06/30/2008: No evidence of myocardial ischemia or scar. EF 58%
PMH:
Paroxysmal atrial fibrillation
s/p PVI 10/08/2019
s/p PVI, posterior wall ablation, mitral annular flutter ablation 11/17/2020
s/p posterior L atrial wall ablation, right atrial tachycardia ablation 06/30/2021
Atypical atrial flutter
Atrial tachycardia
Chronic anticoagulation with Eliquis
[facility] 04/03/[address] 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
HLD
Bladder cancer
BPH
Past Medical History
Past Medical History: Other (In HPI)
Past Surgical History: Cardiac (aortic valve replacement 2007, PVI 2019, PVI 2020, Ablation 2021,), Urological and Other (Robotic partial prostatectomy 02/2020, bilateral robotic inguinal hernia repair 04/2020)
Social History
Tobacco: Non-Smoker
Alcohol: Occasional
Personal:
Living: With Family
Employment: Retired
Family History
Family History: Reviewed & Not Pertinent
Allergies / Home Medications
Allergy/AdvReac Type Severity Reaction Status Date / Time
No Known Allergies Allergy Verified 09/08/23 10:30
�Medication �Instructions �Recorded �Confirmed �Type
finasteride 5 mg tablet 5 mg PO HS prostate 05/25/10 09/08/23 History
simvastatin 10 mg tablet 10 mg PO QPM High cholesterol 09/04/19 09/08/23 History
apixaban 5 mg tablet (Eliquis) 5 mg PO BID Blood Clot 04/20/20 09/08/23 History
Prevention/Tx
amiodarone 200 mg tablet 200 mg PO HS Arrhythmia 07/20/22 09/08/23 History
zolpidem 5 mg tablet 5 mg PO HSPRN PRN sleep 09/12/22 09/08/23 History
vzyabfaajwp-zzhwcpoqf-inl C-Mn 500 1 cap PO DAILY 02/19/23 09/08/23 History
mg-400 mg capsule (Glucosamine
Chondroitin Maximum Strength)
Review of Systems
-
History Source: Patient
All other systems: Negative unless noted
Constitutional: Weight Loss and Fatigue
EENT: No Symptoms
Respiratory: Cough, Hemoptysis and Trouble Breathing
Cardiac: No Symptoms
Abdomen/GI: No Symptoms
: No Symptoms
Skin: No Symptoms
Neurological: Weakness
Hematologic/Lymphatic: No Symptoms
Physical Exam
Vital Signs
Temp Pulse Resp BP Pulse Ox
98.1 F 72 18 120/75 98
09/08/23 18:30 09/08/23 18:30 09/08/23 18:30 09/08/23 18:30 09/08/23 18:30
Lab Results
09/08/23 10:37
09/08/23 10:37
Troponin I 0.022 ng/ml 09/08/23 20:00
Qur-R-Tbubminihsh Pept 742 pg/ml 09/08/23 10:37
Physical Exam
General: Well Developed, Well Nourished and No Apparent Distress
HEENT: Normocephalic, Anicteric and Moist Mucous Membranes
Cardiac: S1/S2, Regular Rhythm and Murmur (2/6 SM); Negative Peripheral Edema or Calf Tenderness
GI: Soft, Non Tender, Non Distended and Normal Bowel Sounds
Musculoskeletal: No Clubbing, No Cyanosis and No Edema
Skin: Negative Rash
Neuro: AO x 3 and Nonfocal/Grossly Intact
Psych: Calm
Impression / Plan
-
PCP: Dr. Brant Kruse
Ticket Collector Or Usher: Dr. Tomi Ring
Impression:
Approximately 1 month acute worsening dyspnea on exertion and exertional fatigue
2 episodes of scant hemoptysis with aggressive cough occurring approximately 2 and half weeks ago none recent
Paroxysmal atrial fibrillation maintaining sinus rhythm on amiodarone [amiodarone initiated January 2022]
s/p PVI 10/08/2019
s/p PVI, posterior wall ablation, mitral annular flutter ablation 11/17/2020
s/p posterior L atrial wall ablation, right atrial tachycardia ablation 06/30/2021
Failed sotalol
Atypical atrial flutter
Atrial tachycardia
Chronic anticoagulation with Eliquis, no recent interruption
Bladder cancer s/p L robotic nephroureterectomy 09/20/2022 with new bladder tumors and plan for resection in September with Dr. Wilburn
h/o aortic valve replacement 2007
HLD
BPH
-Recent cardiac outpatient testinD echocardiogram 09/05/2023: Normal left ventricular size and systolic function with no regional wall motion abnormality and EF estimated 60-65%. Mild LVH. Grade 3 diastolic dysfunction with increased LV filling
pressures. Dilated right ventricle with normal RV systolic function. Severely dilated atria. Mild to moderate MR. Well-seated number 23 mm stentless freestyle aortic valve with peak/mean gradients 10/5 mmHg. Moderate TR. Estimated pulmonary
artery pressure 57 mmHg.
-A classroom monitor was also completed this past month however records are not available for my review
-Lexiscan stress test at [place] dated 06/30/2008: No evidence of myocardial ischemia or scar. EF 58%
Twelve-lead EKG 09/08/2023 sinus rhythm with first-degree AV block and left axis deviation. LVH with QRS widening and repolarization abnormality, no significant change
Plan:
Progressive worsening dyspnea on exertion and exertional fatigue over 1 month with acute worsening over the last several days following cutting branches on his property in extreme heat
-Recent echocardiogram with significant diastolic dysfunction although preserved ejection fraction with mild to moderate MR and moderate TR with pulmonary hypertension. His right ventricle is also mildly dilated although function is preserved. AVR
is functioning normally with no concern for stenosis or significant aortic regurgitation.
-proBNP 742. Cardiac troponins not elevated and flat over serial measurements, 0.02�0.022
-He does report some improvement following IV Lasix
-Findings suggestive of heart failure with preserved ejection fraction
-Will continue IV Lasix with cautious monitoring of renal function. patient is not routinely on Lasix or diuretic as an outpatient
-Pulmonary consult pending: No further hemoptysis on anticoagulation. Doubt thromboembolic disease is no recent interruption of anticoagulation. Doubt amiodarone toxicity.
-Pending response would consider CT chest imaging
-Outpatient ischemic evaluation also recommended
History of paroxysmal atrial fibrillation/flutter maintaining sinus rhythm
-Continue amiodarone
-Continue oral anticoagulation
Acute on chronic renal insufficiency with baseline creatinine 1.7�1.8 currently 2.2
-Monitor closely with diuresis
-Agree with plan to reduce Eliquis to 2.5 mg twice daily given renal insufficiency
Bladder cancer with recurrent tumors
-Will need to coordinate care with Dr. Wilburn. Resection currently scheduled for September 27.
Data Reviewed
-
EKG: Report Reviewed by me
Radiology: Report Reviewed by me
CT Scan: Report Reviewed by me
Medical Tests (Nuc Med, Echo etc): Report Reviewed by me
Labs: Labs Reviewed by me
Old Records: Reviewed
[2023-09-08] MEDS: PROSCAR 5 MG PO (21:01)
[2023-09-08 23:25] VITALS: BP 96/59
[2023-09-08] MEDS: PACERONE 200 MG PO (23:56)
[2023-09-09] VITALS (10 sets, daily range): BP systolic 78–113; BP diastolic 48–70; O2SAT 84–92; BMI 24.2
[2023-09-09 03:14] LABS: Troponin I 0.021 ng/ml
[2023-09-09 04:39] LABS: Hematocrit 38.9 % (39.0-52.0); Hemoglobin 12.6 g/dL (13.0-18.0); Mean Corp Hgb Conc. 32.4 g/dL (33.0-37.0); Mean Corpuscular Hgb 30.4 pg (27.0-31.0); Mean Platelet Volume 9.6 fL (7.4-10.4); Platelet Count 217 10^3/uL (130-400); Red Blood Cell Count 4.14 10^6/uL (4.70-6.10); Red Cell Dist. Width 13.3 % (11.5-14.5); White Blood Cell Count 8.7 10^3/uL (4.8-10.8)
[2023-09-09 04:58] LABS: Blood Urea Nitrogen 37 mg/dl (9-20); Calcium 8.8 mg/dl (8.4-10.2); Carbon Dioxide 27 mmol/L (22-30); Chloride 106 mmol/L (98-107); Estimated Creatinine Clearance 28 ml/min; Glucose 104 mg/dl (70-99); Potassium 4.4 mmol/L (3.5-5.1); Sodium 139 mmol/L (135-145); eGFR 28.46
[2023-09-09 05:10] LABS: Troponin I 0.022 ng/ml
[2023-09-09] MEDS: FLUSH (NSS) 2 FLUSH IV (08:39)
[2023-09-09] MEDS: LASIX 40 MG IV (08:39)
[2023-09-09] MEDS: ELIQUIS 2.5 MG PO ×2 (08:39→20:33)
[2023-09-09 08:49] LABS: NT-proBNP 559 pg/ml
--- NOTE | 2023-09-09 11:00 | CM ---
CM following re: d/c planning.
CM met with pt at bedside to complete IA.
Pt reside with in an apartment.
He reports he is independent with mobility and ADLs.
He denies DME or VN.
He states he drives.
PCP is Dr. Kruse and pharmacy [facility].
He does not anticipate any d/c needs.
Pt is on 2 L supplemental o2, not on o2 at baseline.
CM explained role and will continue to follow.
--- NOTE | 2023-09-09 11:30 | PTCARENOTE ---
Pt requested to ambulate on unit. Pt's SpO2 92% on 2L via NC at rest prior to ambulation, denies any SOB. Ambulated pt 75 feet with 2L of O2 on pt, SpO2 dropped to 84% on 2L with ambulation. Pt denying ACUÑA/ no apparent signs of ACUÑA. Once at rest,
SPO2 back up to 93% on 2L, will continue to monitor.
[2023-09-09 11:50] LABS: Troponin I 0.016 ng/ml
--- NOTE | 2023-09-09 12:00 | W.PN.HOSP.TC ---
Today's Communication/Plan
-
Patient is requiring more than 2 L of oxygen on ambulation (more than he needs at rest)
Continue IV diuresis
Appreciate Cardiology, Nephrology and Pulmonary assistance
Assessment / Plan
Assessment / Plan
Physical Exam
General: No Apparent Distress
HEENT: Normocephalic, Moist mucous membranes and Atraumatic
Respiratory: Clear
Cardiac: S1/S2 and Regular Rhythm
GI: Soft, Non Tender and Normal Bowel Sounds
Musculoskeletal: No Cyanosis and No Edema
Skin: Warm and Dry
Psych: Calm and Intact Judgment/Insight
Assessment/Plan

Echocardiogram 09/05/23 report, as per cardiology:
CONCLUSIONS
Normal left ventricular size and systolic function. No regional wall motion
abnormalities are seen. LV ejection fraction is 60-65% by Cooney's method of
discs. Mild concentric left ventricular hypertrophy. Stage III diastolic
dysfunction suggestive of restrictive filling pattern and increased filling
pressures.
Dilated right ventricle with normal systolic function.
Severely dilated atria.
Mild to moderate mitral regurgitation.
Well-seated #23 mm stentless freestyle aortic valve with peak/mean gradients at
10/5 mmHg.
Moderate tricuspid regurgitation. Estimated pulmonary artery pressure of 57
mmHg assuming a right atrial pressure of 3 mmHg.
Compared to prior study dated 09/23/2019, there is no significant change, prior
aortic valve gradients were peak/mean 9/5 mmHg

Acute Hypoxic Respiratory Insufficiency
Shortness of Breath on Exertion
Concern for New-Onset HFpEF
Right Ventricle Dilated on Recent Echocardiogram
Transient Hemoptysis a Few Weeks Ago
-Recently was told by his PCP that he may have new-onset CHF
-He took Lasix outpatient for 3 days, about 1 week prior to presentation, but developed worsening shortness of breath after finishing his 3-day Lasix course
-CXR suggest CHF
-proBNP 742: indeterminate given his age
-Echo was done on 09/05/23, results are above
-Patient is noted to require more oxygen on ambulation
-Since patient has been taking Eliquis, less likely this is venous thromboembolism
-Pulmonary consulted: doubtful this is Amiodarone toxicity
-May need CT Chest -- await further pulmonary recommendations
-Trend troponins
-Continue IV Lasix
-Daily weights
-I's and O's
JUAN vs. CKD
-Monitor BMP with diuresis
-Suspected to be cardiorenal syndrome, but nephrology consulted given elevated creatinine in the setting of single kidney
-Given patient's single kidney and history of stones and bladder cancer, obtain KUS
Weight Loss During the 9 days prior to presentation
-Patient was given Lasix by outpatient provider for 3 days about 1 week prior to presentation, lost weight while taking it, but continued to lose weight for the several days after stopping Lasix
A-fib status post cardioversion
Atrial tachycardia
Atrial valve repair
-Monitor on telemetry
-Continue Amiodarone
-Continue home Eliquis (but at reduced dosing of 2.5 mg BID given renal function and age)
Aortic valve replacement 2007
History of LBBB intra-op
Nephrolithiasis
Cystoscopy with ureteral stone removal, and stent placement
Bladder cancer status post multiple TURBTs
Robotic partial prostatectomy
Bilateral robotic inguinal hernia repair
Robotic left nephroureterectomy
BPH
-Continue Finasteride
Hyperlipidemia
-Continue Simvastatin
Cardiac porcine valve replacement
DVT PPx: Teresaquis
Code Status: Full Code
Anticipated Discharge: > 48 hours
Subjective/Interval History
-
Date of Service: September 09, 2023
Patient was seen and examined. He reported his shortness of breath seems like it may have improved and denied any chest pain.
Objective Data
-
Labs:
Laboratory Results
09/09/23
04:20
WBC 8.7
Hgb 12.6 L
Hct 38.9 L
Plt Count 217
Sodium 139
Potassium 4.4
Chloride 106
Carbon Dioxide 27
BUN 37 H
Creatinine 2.2 H
Glucose 104 H
Calcium 8.8
Vital Signs:
Vital Signs
Temp Pulse Resp BP Pulse Ox
98.4 F 76 16 105/70 93
09/09/23 11:34 09/09/23 11:34 09/09/23 11:34 09/09/23 11:34 09/09/23 11:34
I&O
09/08/23 09/09/23 09/10/23
06:59 06:59 06:59
Intake Total 120 / 120
Output Total 580 / 580
Balance -460 / -460
--- NOTE | 2023-09-09 12:06 | PTCARENOTE ---
Made Dr. Jalloh aware of pt's troponin of 0.016. Dr. Jalloh wants to see next Troponin before stopping them.
--- NOTE | 2023-09-09 13:05 | W.CON.NEPH ---
Consultation
-
Date/Time Consultation Requested: 09/09/2023 10:52AM
Date/Time Consultation Performed: 09/09/2023 1:05PM
Requesting Provider: Salvatore Medel
Performing Provider: Dannielle Lord
Reason for Consultation: JUAN
Medical History
-
Chief Complaint: JUAN on CKD
History of Present Illness:
Mr. Trivedi is a 88 y/o male with past medical history of a-fib status post cardioversion, atrial tachycardia, aortic valve replacement 2007, LBBB intra-op, nephrolithiasis, cystoscopy with ureteral stone removal, and stent placement, bladder
cancer, multiple TURBTs, robotic partial prostatectomy, bilateral robotic inguinal hernia repair, robotic left nephroureterectomy, BPH, hyperlipidemia, and cardiac porcine valve replacement presented with weight loss and shortness of breath with
exertion.
Regarding his bladder cancer, per patient urology is planning for a repat procedure. For his Afib, he is on eliquis.
The patient states that his symptoms started about 10 days ago when he was chlipping trees. He noted his breathing was very heavy. He was also saying it was very hot at that time. He has lost about 10lbs since then. He said that his SOB started to
peak around and worsened to the point where he knew he had to come in. He also endorses an episode of hemoptysiss previously. He did have a 3 day course of lasix without improvmenet.
Denies lower extremity edema, fevers, chills, nausea, vomiting, chest pain. Denies trouble with urination, dysuria, hematuria.
Past Medical History
a-fib status post cardioversion
atrial tachycardia
aortic valve replacement 2007
LBBB intra-op
nephrolithiasis
cystoscopy with ureteral stone removal, and stent placement
bladder cancer
multiple TURBTs
robotic partial prostatectomy
bilateral robotic inguinal hernia repair
robotic left nephroureterectomy
BPH
hyperlipidemia
cardiac porcine valve replacement
Past Medical History: Other
Past Surgical History: Other
Social History
Tobacco: Non-Smoker
Alcohol: None
Drug: None
Family History
Family History: Not Pertinent
Allergies / Home Medications
Allergy/AdvReac Type Severity Reaction Status Date / Time
No Known Allergies Allergy Verified 09/08/23 10:30
�Medication �Instructions �Recorded �Confirmed �Type
finasteride 5 mg tablet 5 mg PO HS prostate 05/25/10 09/08/23 History
simvastatin 10 mg tablet 10 mg PO QPM High cholesterol 09/04/19 09/08/23 History
apixaban 5 mg tablet (Eliquis) 5 mg PO BID Blood Clot 04/20/20 09/08/23 History
Prevention/Tx
amiodarone 200 mg tablet 200 mg PO HS Arrhythmia 07/20/22 09/08/23 History
zolpidem 5 mg tablet 5 mg PO HSPRN PRN sleep 09/12/22 09/08/23 History
cqatxqzkhhl-gqbtjbnrj-ubl C-Mn 500 1 cap PO DAILY 02/19/23 09/08/23 History
mg-400 mg capsule (Glucosamine
Chondroitin Maximum Strength)
Review of Systems
-
History Source: Patient
All other systems: Negative unless noted
Constitutional: Weight Loss and Fatigue
Respiratory: Trouble Breathing
Physical Exam
Vital Signs
Vital Signs
Temp Pulse Resp BP Pulse Ox
98.4 F 76 16 105/70 93
09/09/23 11:34 09/09/23 11:34 09/09/23 11:34 09/09/23 11:34 09/09/23 11:34
Lab Results
WBC 8.7 10^3/uL (4.8-10.8) 09/09/23 04:20
RBC 4.14 10^6/uL (4.70-6.10) L 09/09/23 04:20
Hgb 12.6 g/dL (13.0-18.0) L 09/09/23 04:20
Hct 38.9 % (39.0-52.0) L 09/09/23 04:20
Plt Count 217 10^3/uL (130-400) 09/09/23 04:20
Sodium 139 mmol/L (135-145) 09/09/23 04:20
Potassium 4.4 mmol/L (3.5-5.1) 09/09/23 04:20
Chloride 106 mmol/L (98-107) 09/09/23 04:20
Carbon Dioxide 27 mmol/L (22-30) 09/09/23 04:20
BUN 37 mg/dl (9-20) H 09/09/23 04:20
Creatinine 2.2 mg/dL (0.7-1.3) H 09/09/23 04:20
eGFR 28.46 09/09/23 04:20
Glucose 104 mg/dl (70-99) H 09/09/23 04:20
Calcium 8.8 mg/dl (8.4-10.2) 09/09/23 04:20
Kvm-G-Tgzwimrwfpr Pept 559 pg/ml 09/09/23 04:20
Albumin 3.5 g/dl (3.5-5.0) 09/08/23 10:37
Physical Exam
General: AOx3, No Distress and Nontoxic
HEENT: PERRL, EOMI, Anicteric, Conjunctivae Clear, Ear/Nose Intact, Hearing Normal, Oropharynx Clear/Moist, Dentition Intact, Facial Symmetry, Neck Supple, Trachea Midline, No JVD and No Thyromegaly
Respiratory: Crackels
Cardiac: S1/S2, Regular Rate/Rhythm, Murmur and No Edema
Breast: N/A
Abdomen: Soft, Nontender, Nondistended, Normal Bowel Sounds and No Hepatosplenomegaly
Rectal: Deferred by Provider
Genito-urinary: No Costovertebral Tender
Musculoskeletal: No Clubbing, No Cyanosis and No Edema
Skin: No Rash, Warm and Dry
Neuro: Nonfocal/Grossly Intact
Hematologic/Lymphatic: No Cervical Lymphadenopathy
Psych: Mood/afflect pleasant, Insight/judgement good and Appropriate
Data Reviewed
-
Radiology: Image Personally Visualized and interpreted (bilateral hazziness noted as well as pleural effusions)
Labs: Labs Reviewed by me, Discussed with Physician and Discussed with Patient
Old Records: Reviewed
Assessment/Plan
-
Assessment:
HFpEF
JUAN on CKD
Hemoptysis
Nephrolithiasis
Bladder cancer
L nephreoureteroectomy
DLD
Plan:
- Cr baseline 1.7-1.8, now elevated to 2.2
- obtain UA but prior with some minimal blood
- obtain KUS, particularly in the setting of single kidney and stone hx
- most likely cardiorenal but will r/o other with workup as above
- CXR appears to be volume overload but hard to know volume status. weight loss is confusing the picture
- okay to continue diuretics for now, if Cr continues to worsen might need to re-eval
- trend Cr
- monitor UOP
--- NOTE | 2023-09-09 13:35 | W.PN.PUL3 ---
Today's Communication / Plan
-
O2
Diuretic
IS
Assessment
-
Assessment:
Mr Omari Trivedi is a delightful 88/M adm 09-07 with a 3 wk h/o worsening dyspnea on decreasing levels of exertion. 2.5 wks ago, he developed a brief episode of cough productive of few streaks of red blood, the next morning a minute clot was
expectorated, no further eventes since then. He cut tree branches in his property last week, a chore that usually takes him 1.5 hrs, though he has done it before even in hot weather, it took him a couple of mornings to complete the task. For last
few days he developed ACUÑA while climbing stairs at home. Denies CP, wheezing, dizziness, fever, presyncopal symptoms, ANGELIQUE edema. During the recent wave of hot weather he was drinking a higher than usual volume of carbonated juice. CXR on 08-28
suggested heart failure and was given a 3 d course of lasix without significant improvement
At ER, POx 90% on RA, afebrile, low normal BP, required 3L O2 by NC, received one IV dose of lasix at 40 mg. Seen at telemetry, accompanied by his kind Patience. Reports improvement of dyspnea, calm, cooperative
Impression:
HFpEF: pulmonary edema
Diastolic dysfunction
Mild to moderate MReg
Negative troponin
BNP normal for age
A/CKI
S/p mild self-limited hemoptysis 2.5 wks GAS MAKER
Conditions GAS MAKER:
AFib s/p CV, on apixaban, amiodarone at 200 mg qd
Atrial tachycardia
Biological AV replacement 2008 [facility]
Nephrolithiasis, cystoscopy with ureteral stone removal, and stent placement
Bladder cancer
Multiple TURBTs, robotic partial prostatectomy (BPH), bilateral robotic inguinal hernia repair, robotic left nephroureterectomy
HLD
Nonsmoker
SHAILESH calcified 6.3 mm nodule
Plan:
Continue O2 protocol
New onset O2 at 3L, POx 98%
Evaluate O2 needs PTD
Asp precs
IS
Albuterol nebs tid prn
HFpEF: pulmonary edema
Diastolic dysfunction
Mild to moderate MReg
CXR 09-07 c/w 12 and films from Feb 2021 and Mar 2016: old films with no pulm abnormalities slight volume loss at L base and chronic sternotomy wiring. Latest two films with worsening pulm and vasc congestion consistent with evolving pulmonary edema
Chest CT s/c 05-03-21 with normal lung parenchyma x calcified 6.3 mm nodule at SHAILESH. Prominent azygos vein
CT abd/p 09-06-23 with lung bases showing mild increase lung water content and mosaic pattern consistent with incipient pulm edema
CT abd/p Jan 2023 with normal lung bases
CXR PA/lat 09-08: moderate improvement of pulm parenchymal/vascular congestion
No current indication for chest CT
TTE 09-04: LVEF 60-65%, WMAs, stage III DD, dilated RV with normal systolic function, mild to mod MR. Well-seated #23 mm stentless freestyle aortic valve with peak/mean gradients at 10/5 mmHg. Mod TR. C/w09/23/2019, there is no significant change
Continue diuretic IV
Limited oral intake of fluids and salt
Monitor UO, wt (reportedly -10 lbs since adm 09-07), resp status, Cr (continues increasing since before adm)
Trend trops (negative) and BNP (indeterminate on adm, but now decreasing)
Doubt amiodarone toxicity, continue oral dose
S/p mild self-limited hemoptysis 2.5 wks GAS MAKER
Continue AC: apixaban (AFib)
Monitor for hemoptysis, no hemoptysis since after above event
Observe off atbs or CSs
Full code
Discussed in detail with Mr Trivedi and his kind Patience at bedside on a daily basis, all questions answered to satisfaction
Subjective Data
-
Date of Service:
Date of Service: September 09, 2023
Chief Complaint: Pulmonary Follow Up
Subjective:
No major events reported overnight
Respiratory rowan he feels improved in regards of dyspnea, he has dyspnea exertion seems improved on mild exertion at the hospital going from his bed to the bathroom
No hemoptysis events this admission
Doing incentive spirometry
His current Patience is visiting today
Review of Systems
General: Fever (n), Sweats (n), Chills (n) and Satisfactory Appetite
HEENT: Epistaxis (n) and Dysphagia (n)
Cardiopulmonary: Dyspnea on Exertion, Cough (n), Wheezing (n), Chest Pain (n), Edema (n), Lower Extremity Pain (n) and Hemoptysis (n)
GI: Abdominal Pain (n), Nausea (n) and Vomiting (n)
Neuro: Weakness
Genitourinary: Hematuria (n)
Objective Data
Data Reviewed
Vital Signs / I&O / Oxygen:
Vital Signs
Temp Pulse Resp BP Pulse Ox
98.4 F 76 16 105/70 93
09/09/23 11:34 09/09/23 11:34 09/09/23 11:34 09/09/23 11:34 09/09/23 11:34
Intake and Output
09/08/23 09/09/23 09/10/23
06:59 06:59 06:59
Intake Total 120 / 120
Output Total 580 / 580
Balance -460 / -460
SaO2 93
Nasal Cannula flow liters per 2
minute
Physical Exam
General: Comfortable
HEENT: Normocephalic and Moist Mucous Membranes
Cardiovascular: Regular Rhythm, Murmur (n), JVD (n), Peripheral Edema (n) and Calf Tenderness (n)
Respiratory: Wheeze (n), Crackles and Stridor (n)
GI: Soft, Non Distended and Non Tender
Neurology: Awake, AO x 3 and No Motor Deficits
Skin: Warm
Labs/Micro/Reports
Lab Data
09/09/23 04:20
09/09/23 04:20
--- NOTE | 2023-09-09 16:47 | W.PN.CARDCBS ---
Today's Communication / Plan
-
Continue diuretic efforts
Pending response consider CT chest without contrast and right heart catheterization
Impression / Plan
-
PCP: Dr. Brant Kruse
Drying Tunnel Operator: Dr. Tomi Ring
Impression:
Approximately 1 month acute worsening dyspnea on exertion and exertional fatigue
2 episodes of scant hemoptysis with aggressive cough occurring approximately 2 and half weeks ago none recent
Paroxysmal atrial fibrillation maintaining sinus rhythm on amiodarone [amiodarone initiated January 2022]
s/p PVI 10/08/2019
s/p PVI, posterior wall ablation, mitral annular flutter ablation 11/17/2020
s/p posterior L atrial wall ablation, right atrial tachycardia ablation 06/30/2021
Failed sotalol
Atypical atrial flutter
Atrial tachycardia
Chronic anticoagulation with Eliquis, no recent interruption
Bladder cancer s/p L robotic nephroureterectomy 09/20/2022, multiple TURBTs with new bladder tumors and plan for resection in September with Dr. Wilburn
Multiple cystoscopies. History of nephrolithiasis with stone removal and stent placement
Chronic renal insufficiency
h/o aortic valve replacement 2007
HLD
BPH
-Recent cardiac outpatient testinD echocardiogram 09/05/2023: Normal left ventricular size and systolic function with no regional wall motion abnormality and EF estimated 60-65%. Mild LVH. Grade 3 diastolic dysfunction with increased LV filling
pressures. Dilated right ventricle with normal RV systolic function. Severely dilated atria. Mild to moderate MR. Well-seated number 23 mm stentless freestyle aortic valve with peak/mean gradients 10/5 mmHg. Moderate TR. Estimated pulmonary
artery pressure 57 mmHg.
-A front desk monitor was also completed this past month however records are not available for my review
-Lexiscan stress test at [facility] dated 06/30/2008: No evidence of myocardial ischemia or scar. EF 58%
-Chest x-ray 622 and 623: With extensive bilateral interstitial pulmonary opacities
-Twelve-lead EKG 09/08/2023 sinus rhythm with first-degree AV block and left axis deviation. LVH with QRS widening and repolarization abnormality, no significant change
Plan:
Progressive worsening dyspnea on exertion and exertional fatigue over 1 month with acute worsening over the last several days following cutting branches on his property in extreme heat
-Patient reports progressive weight loss despite worsening shortness of breath with chest x-ray's consistent with heart failure with preserved ejection fraction
-Chest x-ray with extensive bilateral interstitial pulmonary opacities suggestive of heart failure. . Patient had a CT of the abdomen and pelvis ordered by urology in July 2023 which showed the lung bases have bilateral pleural effusions left
greater than right with interstitial edema at the lung bases
-Recent echocardiogram with significant diastolic dysfunction although preserved ejection fraction with mild to moderate MR and moderate TR with pulmonary hypertension. His right ventricle is also mildly dilated although function is preserved. AVR
is functioning normally with no concern for stenosis or significant aortic regurgitation.
-proBNP 742. Cardiac troponins not elevated and flat over serial measurements, 0.02�0.022
-Discussed case with nephrology given acute on chronic renal insufficiency with history of left nephrectomy: Will continue IV Lasix with cautious monitoring of renal function. patient is not routinely on Lasix or diuretic as an outpatient.
-Pending his response in the next 24 hours, I would offer right heart catheterization this coming week
-Pulmonary consult pending: No further hemoptysis on anticoagulation. Doubt thromboembolic disease is no recent interruption of anticoagulation. Pulmonary doubts amiodarone toxicity
-Pending response would consider CT chest without contrast
-No indication to repeat echocardiogram which was recently done 09/05/2023
-Outpatient ischemic evaluation also recommended
Hypotension with diuresis, asymptomatic
-Will hold further diuretics today and monitor blood pressure trends
History of paroxysmal atrial fibrillation/flutter maintaining sinus rhythm
-Continue amiodarone
-Continue oral anticoagulation, Eliquis dose reduced for renal insufficiency
Acute on chronic renal insufficiency with baseline creatinine 1.7�1.8 currently 2.2
-Monitor closely with diuresis
-Appreciate nephrology input
-Agree with plan to reduce Eliquis to 2.5 mg twice daily given renal insufficiency
Bladder cancer with recurrent tumors
-Will need to coordinate care with Dr. Wilburn. Resection currently scheduled for September 27.
Case and plan reviewed with hospitalist, pulmonary and nephrology
Progress Note - Drying Tunnel Operator
Subjective
Date of Service: September 09, 2023
Patient seen and examined. Continues to have shortness of breath with minimal exertion. No further hemoptysis. No chest pain or pressure. Blood pressures have been on the low side but denies dizziness.
Objective
Labs:
09/09/23 04:20
09/09/23 04:20
Labs
Hgb 12.6 g/dL (13.0-18.0) L 09/09/23 04:20
Hct 38.9 % (39.0-52.0) L 09/09/23 04:20
Plt Count 217 10^3/uL (130-400) 09/09/23 04:20
Sodium 139 mmol/L (135-145) 09/09/23 04:20
Potassium 4.4 mmol/L (3.5-5.1) 09/09/23 04:20
BUN 37 mg/dl (9-20) H 09/09/23 04:20
Creatinine 2.2 mg/dL (0.7-1.3) H 09/09/23 04:20
Glucose 104 mg/dl (70-99) H 09/09/23 04:20
Troponins
09/08/23 09/08/23 09/09/23
10:37 20:00 02:07
Troponin I 0.020 0.022 0.021
09/09/23 09/09/23
04:20 11:10
Troponin I 0.022 0.016 D
Vital Signs and I&O:
Vital Signs
Temp Pulse Resp BP Pulse Ox
98.1 F 73 16 97/57 93
09/09/23 15:17 09/09/23 15:36 09/09/23 15:17 09/09/23 15:36 09/09/23 15:36
Vital Signs
Temp Pulse Resp BP Pulse Ox
98.1 F 73 16 97/57 93
09/09/23 15:17 09/09/23 15:36 09/09/23 15:17 09/09/23 15:36 09/09/23 15:36
Intake & Output
09/07/23 09/08/23 09/09/23 09/10/23
06:59 06:59 06:59 06:59
Intake Total 120 / 120
Output Total 580 / 580
Balance -460 / -460
Physical Exam
Physical Exam
General: In bed, NAD at rest. Nasal cannula O2
HEENT: mmm
Cardiac: S1/S2, Regular Rhythm 2/6 systolic murmur
Pulmonary: Bronchovesicular breath sounds with crackles bilaterally and scattered rhonchi. No wheezing
GI: Soft, Non Tender, Non Distended and Normal Bowel Sounds
Musculoskeletal: No Edema
Neuro: AO x 3 and Nonfocal/Grossly Intact
[2023-09-09] MEDS: LIPITOR 10 MG PO (17:24)
[2023-09-09 17:30] LABS: Urine Albumin Negative (Neg - Trace); Urine Bilirubin Negative (Negative); Urine Character Clear (Clear); Urine Color Yellow; Urine Glucose Negative (Negative); Urine Ketone Negative (Negative); Urine Leukocyte Negative (Negative); Urine Nitrite Negative (Negative); Urine Occult Blood Trace (Negative); Urine Urobilinogen Negative (Neg - 1+)
[2023-09-09 17:43] LABS: Urine Bacteria Few (Negative)
--- NOTE | 2023-09-09 17:54 | PTCARENOTE ---
Pt's BP at 1515, 78/48 via automatic BP cuff, asymptomatic. Rechecked with manual BP cuff and 92/56, 97/57. Dr. Joseiring in to see pt and aware of hypotension. Current BP 113/69, SpO2 94% on 3L via NC, will continue to follow.
[2023-09-09 18:09] LABS: Urine Sodium 57 mmol/L (30-90)
[2023-09-09] MEDS: PROSCAR 5 MG PO (23:20)
[2023-09-09] MEDS: PACERONE 200 MG PO (23:20)
[2023-09-10 03:43] VITALS: BP 107/62
[2023-09-10 05:15] VITALS: BMI 23.5
[2023-09-10 07:05] VITALS: BP 101/64
[2023-09-10 08:39] LABS: Hematocrit 38.9 % (39.0-52.0); Hemoglobin 13.2 g/dL (13.0-18.0); Mean Corp Hgb Conc. 33.9 g/dL (33.0-37.0); Mean Corpuscular Volume 91.3 fL (80.0-94.0); Mean Platelet Volume 9.8 fL (7.4-10.4); Platelet Count 236 10^3/uL (130-400); Red Blood Cell Count 4.26 10^6/uL (4.70-6.10); Red Cell Dist. Width 13.3 % (11.5-14.5); White Blood Cell Count 8.5 10^3/uL (4.8-10.8)
[2023-09-10] MEDS: ELIQUIS 2.5 MG PO ×2 (09:13→19:59)
[2023-09-10 09:14] LABS: Blood Urea Nitrogen 43 mg/dl (9-20); Carbon Dioxide 28 mmol/L (22-30); Chloride 103 mmol/L (98-107); Estimated Creatinine Clearance 31 ml/min; Glucose 93 mg/dl (70-99); Potassium 4.4 mmol/L (3.5-5.1); Sodium 137 mmol/L (135-145)
[2023-09-10] MEDS: LASIX 40 MG IV (09:15)
[2023-09-10] MEDS: FLUSH (NSS) 2 FLUSH IV (09:16)
--- NOTE | 2023-09-10 09:34 | W.PN.CARDCBS ---
Addendum entered and electronically signed by Nhan Vazquez DO 09/10/23 16:12:
I saw and examined the patient.
The Range Operator's note was reviewed and I agree with the note.
Comment:
Plan:
Cont IV diuresis, wt coming down
Would use standing scale
Recent echo reviewed, EF preserved and AVR stable
He will need a bladder procedure he states next month
Original Note:
Today's Communication / Plan
-
Improving.
Continue diuresis
Impression / Plan
-
PCP: Dr. Brant Kruse
Critical Care Transport Nurse: Dr. Tomi Ring
Impression:
Approximately 1 month acute worsening dyspnea on exertion and exertional fatigue
2 episodes of scant hemoptysis with aggressive cough occurring approximately 2 and half weeks ago none recent
Paroxysmal atrial fibrillation maintaining sinus rhythm on amiodarone [amiodarone initiated January 2022]
s/p PVI 10/08/2019
s/p PVI, posterior wall ablation, mitral annular flutter ablation 11/17/2020
s/p posterior L atrial wall ablation, right atrial tachycardia ablation 06/30/2021
Failed sotalol
Atypical atrial flutter
Atrial tachycardia
Chronic anticoagulation with Eliquis, no recent interruption
Bladder cancer s/p L robotic nephroureterectomy 09/20/2022, multiple TURBTs with new bladder tumors and plan for resection in September with Dr. Wilburn
Multiple cystoscopies.
History of nephrolithiasis with stone removal and stent placement
Chronic renal insufficiency
h/o aortic valve replacement 2007
HLD
BPH
Lexiscan stress test at [facility] dated 06/30/2008: No evidence of myocardial ischemia or scar. EF 58%
Echo 09/05/2023: Normal left ventricular size and systolic function with no regional wall motion abnormality and EF estimated 60-65%. Mild LVH. Grade 3 diastolic dysfunction with increased LV filling pressures. Dilated right ventricle with normal
RV systolic function. Severely dilated atria. Mild to moderate MR. Well-seated number 23 mm stentless freestyle aortic valve with peak/mean gradients 10/5 mmHg. Moderate TR. Estimated pulmonary artery pressure 57 mmHg
Plan:
-Presented with worsening ACUÑA and exertional fatigue. Found to be in acute heart failure.
-Diuresing with IV lasix 40mg daily. Weight down 5lbs overnight, down to 183lbs 09/09.
-Creat improved overnight, down to 2.0. h/o L nephrectomy noted.
-Recent echo 09/05/23 with preserved EF and mild-mod MR and stable aortic valve replacement.
-Noted hemoptysis recently, however has had no recurrence recently. Continues on Eliquis 2.5mg BID (Age, creat). Hgb stable.
-Remains in SR on review of telemetry. Does have h/o afib and continues on amiodarone 200mg daily.
-Bladder cancer with recurrent tumors noted, planning eventual resection w/ Dr. Wilburn. Timing TBD per patient.
HPI: Omari is an 88 year old male who follows routinely with my colleague, Dr. Richardson Ring. 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
[facility]. He was recently found to have recurrent bladder tumors and had been scheduled for a repeat cystoscopy which was canceled secondary to worsening shortness of breath over the last month. He did have COVID-19 back in 2021 and felt that the
worsening of his shortness of breath was related to long-haul COVID. He denies recent URI/COVID or influenza. Approximately 3 weeks ago he had 2 episodes of hemoptysis after aggressive coughing first thing in the morning. He has had no recurrent
hemoptysis. Over last weekend he was prescribed Lasix which he took over 3 days with perhaps slightly improved symptoms. He did not continue the Lasix. This past week, he wanted to get trees trimmed on his property and spent hours outside trying
to complete this chore. He states that although he was trying to stay hydrated he was quite short of breath. Following this his shortness of breath worsened with activity such as walking up and down the stairs which she is usually able to do
without difficulty. The day of admission he developed extreme dyspnea on exertion that required him to lay down following walking up stairs. He called our office on September 05 and referred to the emergency department. He denies chest pain or
pressure. He denies orthopnea or PND. He denies wheezing. He denies fevers or chills. He denies lower extremity edema. He has had no recent interruption of anticoagulation or recent travel. He is tentatively scheduled for bladder tumor removal
September [address] Wilburn. Patient is a non-smoker and does not routinely follow with pulmonary.
Progress Note - Critical Care Transport Nurse
Subjective
Date of Service: September 10, 2023
Feeling better. Ambulated this AM and noted improvement in his breathing.
Objective
Labs:
09/10/23 06:11
09/10/23 06:11
Labs
Hgb 13.2 g/dL (13.0-18.0) 09/10/23 06:11
Hct 38.9 % (39.0-52.0) L 09/10/23 06:11
Plt Count 236 10^3/uL (130-400) 09/10/23 06:11
Sodium 137 mmol/L (135-145) 09/10/23 06:11
Potassium 4.4 mmol/L (3.5-5.1) 09/10/23 06:11
BUN 43 mg/dl (9-20) H 09/10/23 06:11
Creatinine 2.0 mg/dL (0.7-1.3) H 09/10/23 06:11
Glucose 93 mg/dl (70-99) 09/10/23 06:11
Troponins
09/08/23 09/08/23 09/09/23
10:37 20:00 02:07
Troponin I 0.020 0.022 0.021
09/09/23 09/09/23 09/09/23
04:20 11:10 17:21
Troponin I 0.022 0.016 D Cancelled
09/09/23
23:21
Troponin I Cancelled
Vital Signs and I&O:
Vital Signs
Temp Pulse Resp BP Pulse Ox
98.3 F 77 18 101/64 93
09/10/23 07:05 09/10/23 07:05 09/10/23 07:05 09/10/23 07:05 09/10/23 07:05
Vital Signs
Temp Pulse Resp BP Pulse Ox
98.3 F 77 18 101/64 93
09/10/23 07:05 09/10/23 07:05 09/10/23 07:05 09/10/23 07:05 09/10/23 07:05
Intake & Output
09/08/23 09/09/23 09/10/23 09/11/23
06:59 06:59 06:59 06:59
Intake Total 120 / 120 2250 / 2250
Output Total 580 / 580 1585 / 1585
Balance -460 / -460 665 / 665
Physical Exam
Physical Exam
GEN: No distress, awake, alert, oriented x3
HEENT: supple, anicteric, mmm
LUNGS: CTA b/l, no wheezes/rales
CV: Reg, S1/S2, 1/6 syst murmur
EXT: No clubbing, cyanosis, or edema
NEURO: Gross non-focal
SKIN: Warm, dry, no rash
--- NOTE | 2023-09-10 10:30 | W.PN.HOSP.TC ---
Today's Communication/Plan
-
Continue diuresis
Monitor renal function
Check renal/bladder ultrasound
Assessment / Plan
Assessment / Plan
Gen-AAOx3, NAD
HEENT-NC, AT, anicteric, clear oral mm
Neck-supple
CV-reg, no M, +S1/S2
Lungs-clear B/L
Abd-soft, NT, ND
Ext-no edema
Musculoskeletal-no cyanosis, clubbing
Skin-warm and dry
Neuro-grossly non-focal
Psych-calm, cooperative
Acute Hypoxic Respiratory Insufficiency -due to acute heart failure exacerbation. Chest x-ray reviewed by myself, bilateral pulmonary edema noted. Currently on 3 L nasal cannula oxygen, wean down as able.
Concern for New-Onset HFpEF
Right Ventricle Dilated on Recent Echocardiogram
Transient Hemoptysis a Few Weeks Ago
Acute heart failure with preserved EF exacerbation -Recently was told by his PCP that he may have new-onset CHF. Continue diuresis per cardiology. Consider right heart catheterization.
-He took Lasix outpatient for 3 days, about 1 week prior to presentation, but developed worsening shortness of breath after finishing his 3-day Lasix course
-CXR suggest CHF
-proBNP 742: indeterminate given his age
-Echo was done on 09/05/23, results are above
-Patient is noted to require more oxygen on ambulation
-Since patient has been taking Eliquis, less likely this is venous thromboembolism
-Pulmonary consulted: doubtful this is Amiodarone toxicity
-May need CT Chest -- await further pulmonary recommendations
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 Possible cardiorenal syndrome from heart failure exacerbation. Nephrology following.
-Given patient's single kidney and history of stones and bladder cancer, obtain KUS
Significant weight loss -Patient was given Lasix by outpatient provider for 3 days about 1 week prior to presentation, lost weight while taking it, but continued to lose weight for the several days after stopping Lasix. Patient believes he has
losing about a pound a day. Reportedly was 199 pounds 1 month ago, 182 today. Concern for underlying malignancy as a possibility. Discussed with patient that he should follow-up closely with his primary care doctor to investigate further.
A-fib status post cardioversion
Atrial tachycardia
Atrial valve repair
-Continue Amiodarone
-Continue home Eliquis (but at reduced dosing of 2.5 mg BID given renal function and age)
Aortic valve replacement 2007
History of LBBB intra-op
Nephrolithiasis
Cystoscopy with ureteral stone removal, and stent placement
Bladder cancer status post multiple TURBTs
Robotic partial prostatectomy
Bilateral robotic inguinal hernia repair
Robotic left nephroureterectomy
BPH
-Continue Finasteride
Hyperlipidemia-Continue Simvastatin
Full code
Anticipated Discharge: > 48 hours
Subjective/Interval History
-
Date of Service: September 10, 2023
Patient seen and examined. No new complaints. States shortness of breath is improving.
Objective Data
-
Labs:
Laboratory Results
09/10/23
06:11
WBC 8.5
Hgb 13.2
Hct 38.9 L
Plt Count 236
Sodium 137
Potassium 4.4
Chloride 103
Carbon Dioxide 28
BUN 43 H
Creatinine 2.0 H
Glucose 93
Calcium 9.0
Vital Signs:
Vital Signs
Temp Pulse Resp BP Pulse Ox
98.3 F 77 18 101/64 93
09/10/23 07:05 09/10/23 07:05 09/10/23 07:05 09/10/23 07:05 09/10/23 07:05
I&O
09/09/23 09/10/23 09/11/23
06:59 06:59 06:59
Intake Total 120 / 120 2250 / 2250
Output Total 580 / 580 1585 / 1585
Balance -460 / -460 665 / 665
Review of Systems
-
History Source: Patient
All other systems: Reviewed and negative
[2023-09-10 11:28] VITALS: BP 99/62
--- NOTE | 2023-09-10 11:56 | W.PN.NEPH.PH ---
Today's Communication / Plan
-
diurese
Assessment/Plan
-
Assessment:
HFpEF
JUAN on CKD (1.7)
Hemoptysis
Nephrolithiasis
Bladder cancer
L nephreoureteroectomy
DLD
Plan:
follow BMP
continue IV lasix today
wean O2 as allowed
if able to wean O2 can transition to po lasix
d/w pt and family at length
-
-
Date of Service: September 10, 2023
CC / HPI / ROS
-
Chief Complaint:
JUAN
History of Present Illness:
JUAN/Cr down to 2.0
on IV lasix for decompensated HFpEF
BP stable
Review of Systems:
no CP/SOB
on supplemental O2 3L
Labs
-
Labs:
WBC 8.5 10^3/uL (4.8-10.8) 09/10/23 06:11
RBC 4.26 10^6/uL (4.70-6.10) L 09/10/23 06:11
Hgb 13.2 g/dL (13.0-18.0) 09/10/23 06:11
Hct 38.9 % (39.0-52.0) L 09/10/23 06:11
Plt Count 236 10^3/uL (130-400) 09/10/23 06:11
Sodium 137 mmol/L (135-145) 09/10/23 06:11
Potassium 4.4 mmol/L (3.5-5.1) 09/10/23 06:11
Chloride 103 mmol/L (98-107) 09/10/23 06:11
Carbon Dioxide 28 mmol/L (22-30) 09/10/23 06:11
BUN 43 mg/dl (9-20) H 09/10/23 06:11
Creatinine 2.0 mg/dL (0.7-1.3) H 09/10/23 06:11
eGFR 31.90 09/10/23 06:11
Glucose 93 mg/dl (70-99) 09/10/23 06:11
Calcium 9.0 mg/dl (8.4-10.2) 09/10/23 06:11
Ozb-E-Jkbunpiyhvz Pept 559 pg/ml 09/09/23 04:20
Albumin 3.5 g/dl (3.5-5.0) 09/08/23 10:37
Physical Exam
-
Vital Signs:
Vital Signs
Temp Pulse Resp BP Pulse Ox
98 F 72 18 99/62 95
09/10/23 11:28 09/10/23 11:28 09/10/23 11:28 09/10/23 11:28 09/10/23 11:28
Cardiovascular:: Regular rate and rhythm
Respiratory:: Bilateral: Coarse
Lung Excursion:: Normal
Abdomen:: Nontender and Soft
Bowel Sounds:: Normal
Extremity Edema:: None: Bilateral:
--- NOTE | 2023-09-10 13:50 | W.PN.PUL3 ---
Today's Communication / Plan
-
Continue diuresis
Eventual repeat chest x-ray in about 4 to 6 weeks from now
Wean down oxygen as able
Home oxygen assessment in the next 24 hours.
Will follow
Assessment
-
Assessment:
Mr Omari Trivedi is a delightful 88/M adm 09-07 with a 3 wk h/o worsening dyspnea on decreasing levels of exertion. 2.5 wks ago, he developed a brief episode of cough productive of few streaks of red blood, the next morning a minute clot was
expectorated, no further eventes since then. He cut tree branches in his property last week, a chore that usually takes him 1.5 hrs, though he has done it before even in hot weather, it took him a couple of mornings to complete the task. For last
few days he developed ACUÑA while climbing stairs at home. Denies CP, wheezing, dizziness, fever, presyncopal symptoms, ANGELIQUE edema. During the recent wave of hot weather he was drinking a higher than usual volume of carbonated juice. CXR on 08-28
suggested heart failure and was given a 3 d course of lasix without significant improvement
At ER, POx 90% on RA, afebrile, low normal BP, required 3L O2 by NC, received one IV dose of lasix at 40 mg. Seen at telemetry, accompanied by his kind Patience. Reports improvement of dyspnea, calm, cooperative
Impression:
HFpEF: pulmonary edema
Diastolic dysfunction
Mild to moderate MReg
Negative troponin
BNP normal for age
A/CKI
S/p mild self-limited hemoptysis 2.5 wks RETAIL BUYER
Conditions RETAIL BUYER:
AFib s/p CV, on apixaban, amiodarone at 200 mg qd
Atrial tachycardia
Biological AV replacement 2007 [facility]
Nephrolithiasis, cystoscopy with ureteral stone removal, and stent placement
Bladder cancer
Multiple TURBTs, robotic partial prostatectomy (BPH), bilateral robotic inguinal hernia repair, robotic left nephroureterectomy
HLD
Nonsmoker
SHAILESH calcified 6.3 mm nodule
Plan:
Continues to require low rate supplemental oxygen.
Continue to wean down as able. Clinically improving.
Home oxygen assessment prior to discharge.
Increase activity as able
Encourage incentive spirometry
As needed nebulizers-he is not bronchospastic.
HFpEF: pulmonary edema
Diastolic dysfunction
Mild to moderate MReg
TTE 09-04: LVEF 60-65%, WMAs, stage III DD, dilated RV with normal systolic function, mild to mod MR. Well-seated #23 mm stentless freestyle aortic valve with peak/mean gradients at 10/5 mmHg. Mod TR. C/w09/23/2019, there is no significant change
-
Images reviewed:
CXR - c/w 12 and films from Feb 2021 and Mar 2016: old films with no pulm abnormalities slight volume loss at L base and chronic sternotomy wiring. Latest two films with worsening pulm and vasc congestion consistent with evolving pulmonary edema
Chest CT s/c 05-03-21 with normal lung parenchyma x calcified 6.3 mm nodule at SHAILESH. Prominent azygos vein
CT abd/p 09-06-23 with lung bases showing mild increase lung water content and mosaic pattern consistent with incipient pulm edema
CT abd/p Jan 2023 with normal lung bases
CXR PA/lat 09-08: moderate improvement of pulm parenchymal/vascular congestion
No current indication for chest CT
Continue diuretic IV
Management per cardiology and primary team.
Daily weight
Doubt amiodarone toxicity, continue oral dose-recommend repeat imaging in the outpatient setting in the next 4 to 6 weeks after discharge. If there is persistent chest x-ray abnormalities then a CT of the chest at that time will be recommended.
S/p mild self-limited hemoptysis 2.5 wks RETAIL BUYER-none since admission
Continue AC: apixaban (AFib)
Observe off atbs or CSs
Full code
Subjective Data
-
Date of Service:
Date of Service: September 10, 2023
Chief Complaint: Pulmonary Follow Up
Subjective:
Patient feels better.
Denies any cough at the moment.
No further hemoptysis.
Review of Systems
General: Fever (n)
Cardiopulmonary: Dyspnea (improved) and Wheezing (n)
GI: Abdominal Pain (n) and Nausea (n)
Objective Data
Data Reviewed
Vital Signs / I&O / Oxygen:
Vital Signs
Temp Pulse Resp BP Pulse Ox
98 F 72 18 99/62 95
09/10/23 11:28 09/10/23 11:28 09/10/23 11:28 09/10/23 11:28 09/10/23 11:28
Intake and Output
09/09/23 09/10/23 09/11/23
06:59 06:59 06:59
Intake Total 120 / 120 2250 / 2250
Output Total 580 / 580 1585 / 1585
Balance -460 / -460 665 / 665
SaO2 95
Nasal Cannula flow liters per 3
minute
Physical Exam
General: Comfortable and Other (Able to speak in full sentences)
HEENT: Normocephalic and Moist Mucous Membranes
Cardiovascular: Regular Rhythm, Murmur (n), JVD (n), Peripheral Edema (n) and Calf Tenderness (n)
Respiratory: Wheeze (n), Crackles (Both bases) and Stridor (n)
GI: Soft, Non Distended and Non Tender
Neurology: Awake, AO x 3 and No Motor Deficits
Skin: Warm
Labs/Micro/Reports
Lab Data
09/10/23 06:11
09/10/23 06:11
[2023-09-10 15:21] VITALS: BP 99/59
[2023-09-10] MEDS: LIPITOR 10 MG PO (17:18)
[2023-09-10 19:10] VITALS: BP 102/65
[2023-09-10] MEDS: PROSCAR 5 MG PO (21:36)
[2023-09-10] MEDS: PACERONE 200 MG PO (21:36)
[2023-09-10 23:26] VITALS: BP 98/64
[2023-09-11] VITALS (15 sets, daily range): BP systolic 91–113; BP diastolic 54–77; BMI 24.1
[2023-09-11 05:35] LABS: Blood Urea Nitrogen 45 mg/dl (9-20); Calcium 9.2 mg/dl (8.4-10.2); Carbon Dioxide 27 mmol/L (22-30); Chloride 101 mmol/L (98-107); Estimated Creatinine Clearance 31 ml/min; Glucose 99 mg/dl (70-99); Sodium 136 mmol/L (135-145)
[2023-09-11] MEDS: ELIQUIS 2.5 MG PO ×2 (08:12→21:04)
[2023-09-11] MEDS: LASIX 40 MG IV (08:13)
--- NOTE | 2023-09-11 08:36 | W.PN.CARDCBS ---
Addendum entered and electronically signed by Nhan Vazquez DO 09/11/23 13:28:
I saw and examined the patient.
The [facility] Assessment Specialist's note was reviewed and I agree with the note.
Comment:
Plan:
With no significant improvement in diuresis despite IV Lasix, discussed with nephrology regarding right heart catheterization.
Discussed with the patient right heart catheterization and he is agreeable to this.
Monitor I's and O's creatinine and daily weights.
Appreciate pulmonary input, he is now on O2. Wean as tolerated.
He has had weight loss. Defer to primary service for workup
He has a urologic procedure with Dr Wilburn in September
Original Note:
Today's Communication / Plan
-
No subjective improvement with attempts at diuresis
No appreciable diuresis despite Lasix IV
Continues to require supplemental oxygen which is new for him
Impression / Plan
-
PCP: Dr. Brant Kruse
Log Deck Tender: Dr. Tomi Ring
Impression:
Approximately 1 month acute worsening dyspnea on exertion and exertional fatigue
2 episodes of scant hemoptysis with aggressive cough occurring approximately 2 and half weeks ago none recent
Paroxysmal atrial fibrillation maintaining sinus rhythm on amiodarone [amiodarone initiated January 2022]
s/p PVI 10/08/2019
s/p PVI, posterior wall ablation, mitral annular flutter ablation 11/17/2020
s/p posterior L atrial wall ablation, right atrial tachycardia ablation 06/30/2021
Failed sotalol
Atypical atrial flutter
Atrial tachycardia
Chronic anticoagulation with Eliquis, no recent interruption
Bladder cancer s/p L robotic nephroureterectomy 09/20/2022, multiple TURBTs with new bladder tumors and plan for resection in September with Dr. Wilburn
Multiple cystoscopies.
History of nephrolithiasis with stone removal and stent placement
Chronic renal insufficiency
h/o aortic valve replacement 2007
HLD
BPH
Lexiscan stress test at [facility] dated 06/30/2008: No evidence of myocardial ischemia or scar. EF 58%
Echo 09/05/2023: Normal left ventricular size and systolic function with no regional wall motion abnormality and EF estimated 60-65%. Mild LVH. Grade 3 diastolic dysfunction with increased LV filling pressures. Dilated right ventricle with normal
RV systolic function. Severely dilated atria. Mild to moderate MR. Well-seated number 23 mm stentless freestyle aortic valve with peak/mean gradients 10/5 mmHg. Moderate TR. Estimated pulmonary artery pressure 57 mmHg
Plan:
-Long talk with patient in the room on 09/11/23, he reports that his presenting symptom was fatigue and weight loss. He reports his dry weight prior to admission was 198 lbs, but that he noticed his weight dropped to 189 lbs prior to admission
without any change in his diet or hydration levels. On admission pro-BNP was 559, but CXR was read as moderate CHF. He denies LE edema, bloating, ACUÑA, PND and orthopnea. Patient has been diuresed with Lasix 40 mg IV daily since admission and weight
has been stable.
-Patient has not had any subjective improvement since admission. Weight is essentially unchanged despite IV diuresis. Consider stopping Lasix IV. Patient was not taking a diuretic prior to admission.
-Cre as high as 2.2, but improved to 2.0 on 09/11/23. Nephrology following.
-Continues to require oxygen, patient was not using supplemental oxygen prior to admission. Pulmonology following, not sure if there could be another reason for his hypoxia.
-Recent echo 09/05/23 with preserved EF and mild-mod MR and stable aortic valve replacement.
-Noted hemoptysis recently, however has had no recurrence recently. Continues on Eliquis 2.5mg BID (Age, creat). Hgb stable.
-Remains in SR on review of telemetry. Does have h/o paroxysmal Afib and continues on amiodarone 200mg daily.
-Bladder cancer with recurrent tumors noted, planning eventual resection w/ Dr. Wilburn. Timing TBD per patient.
HPI: Omari is an 88 year old male who follows routinely with my colleague, Dr. Richardson Ring. 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
[facility]. He was recently found to have recurrent bladder tumors and had been scheduled for a repeat cystoscopy which was canceled secondary to worsening shortness of breath over the last month. He did have COVID-19 back in 2021 and felt that the
worsening of his shortness of breath was related to long-haul COVID. He denies recent URI/COVID or influenza. Approximately 3 weeks ago he had 2 episodes of hemoptysis after aggressive coughing first thing in the morning. He has had no recurrent
hemoptysis. Over last weekend he was prescribed Lasix which he took over 3 days with perhaps slightly improved symptoms. He did not continue the Lasix. This past week, he wanted to get trees trimmed on his property and spent hours outside trying
to complete this chore. He states that although he was trying to stay hydrated he was quite short of breath. Following this his shortness of breath worsened with activity such as walking up and down the stairs which she is usually able to do
without difficulty. The day of admission he developed extreme dyspnea on exertion that required him to lay down following walking up stairs. He called our office on September 05 and referred to the emergency department. He denies chest pain or
pressure. He denies orthopnea or PND. He denies wheezing. He denies fevers or chills. He denies lower extremity edema. He has had no recent interruption of anticoagulation or recent travel. He is tentatively scheduled for bladder tumor removal
September [address] Wilburn. Patient is a non-smoker and does not routinely follow with pulmonary.
Progress Note - Log Deck Tender
Subjective
Date of Service: September 11, 2023
He feels no better since admission
Objective
Labs:
09/10/23 06:11
09/11/23 04:20
Labs
Hgb 13.2 g/dL (13.0-18.0) 09/10/23 06:11
Hct 38.9 % (39.0-52.0) L 09/10/23 06:11
Plt Count 236 10^3/uL (130-400) 09/10/23 06:11
Sodium 136 mmol/L (135-145) 09/11/23 04:20
Potassium 4.0 mmol/L (3.5-5.1) 09/11/23 04:20
BUN 45 mg/dl (9-20) H 09/11/23 04:20
Creatinine 2.0 mg/dL (0.7-1.3) H 09/11/23 04:20
Glucose 99 mg/dl (70-99) 09/11/23 04:20
Troponins
09/08/23 09/08/23 09/09/23
10:37 20:00 02:07
Troponin I 0.020 0.022 0.021
09/09/23 09/09/23 09/09/23
04:20 11:10 17:21
Troponin I 0.022 0.016 D Cancelled
09/09/23
23:21
Troponin I Cancelled
Vital Signs and I&O:
Vital Signs
Temp Pulse Resp BP Pulse Ox
98.1 F 76 16 92/67 94
09/11/23 07:55 09/11/23 08:13 09/11/23 07:55 09/11/23 08:13 09/11/23 07:55
Vital Signs
Temp Pulse Resp BP Pulse Ox
98.1 F 76 16 92/67 94
09/11/23 07:55 09/11/23 08:13 09/11/23 07:55 09/11/23 08:13 09/11/23 07:55
Intake & Output
09/09/23 09/10/23 09/11/23 09/12/23
06:59 06:59 06:59 06:59
Intake Total 120 / 120 2250 / 2250 1140 / 1140
Output Total 580 / 580 1585 / 1585 350 / 350
Balance -460 / -460 665 / 665 790 / 790
Physical Exam
Physical Exam
GEN: AAO x3
HEENT: MMM
LUNGS: No audible wheeze
CV: Reg, 1/6 syst murmur
EXT: No edema B/L LE
NEURO: Gross non-focal
SKIN: Warm, dry, no rash
--- NOTE | 2023-09-11 11:23 | W.PN.HOSP.TC ---
Today's Communication/Plan
-
RHC today
Assessment / Plan
Assessment / Plan
Gen-AAOx3, NAD
HEENT-NC, AT, anicteric, clear oral mm
Neck-supple
CV-reg, no M, +S1/S2
Lungs-clear B/L
Abd-soft, NT, ND
Ext-no edema
Musculoskeletal-no cyanosis, clubbing
Skin-warm and dry
Neuro-grossly non-focal
Psych-calm, cooperative
Acute Hypoxic Respiratory Insufficiency -due to acute heart failure exacerbation. Chest x-ray reviewed by myself, bilateral pulmonary edema noted. Currently on 2 L nasal cannula oxygen, wean down as able.
Concern for New-Onset HFpEF
Right Ventricle Dilated on Recent Echocardiogram
Transient Hemoptysis a Few Weeks Ago
Acute heart failure with preserved EF exacerbation -Recently was told by his PCP that he may have new-onset CHF. Continue diuresis per cardiology. Await right heart catheterization today.
-He took Lasix outpatient for 3 days, about 1 week prior to presentation, but developed worsening shortness of breath after finishing his 3-day Lasix course
-CXR suggest CHF
-proBNP 742: indeterminate given his age
-Echo was done on 09/05/23, results are above
-Patient is noted to require more oxygen on ambulation
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 Possible cardiorenal syndrome from heart failure exacerbation. Nephrology following. Renal/bladder ultrasound unrevealing, left nephrectomy noted.
Significant weight loss -Patient was given Lasix by outpatient provider for 3 days about 1 week prior to presentation, lost weight while taking it, but continued to lose weight for the several days after stopping Lasix. Patient believes he has
losing about a pound a day. Reportedly was 199 pounds 1 month ago, 182 today. Concern for underlying malignancy as a possibility. Discussed with patient that he should follow-up closely with his primary care doctor to investigate further.
A-fib status post cardioversion
Atrial tachycardia
Atrial valve repair
-Continue Amiodarone
-Continue home Eliquis (but at reduced dosing of 2.5 mg BID given renal function and age)
Aortic valve replacement 2007
History of LBBB intra-op
Nephrolithiasis
Cystoscopy with ureteral stone removal, and stent placement
Bladder cancer status post multiple TURBTs
Robotic partial prostatectomy
Bilateral robotic inguinal hernia repair
Robotic left nephroureterectomy
BPH
-Continue Finasteride
Hyperlipidemia-Continue Simvastatin
Full code
Anticipated Discharge: 24 - 48 hours
Subjective/Interval History
-
Date of Service: September 11, 2023
Patient seen and examined. No new complaints.
Objective Data
-
Labs:
Laboratory Results
09/11/23
04:20
Sodium 136
Potassium 4.0
Chloride 101
Carbon Dioxide 27
BUN 45 H
Creatinine 2.0 H
Glucose 99
Calcium 9.2
Vital Signs:
Vital Signs
Temp Pulse Resp BP Pulse Ox
98.1 F 76 16 92/67 94
09/11/23 07:55 09/11/23 08:13 09/11/23 07:55 09/11/23 08:13 09/11/23 10:49
I&O
09/10/23 09/11/23 09/12/23
06:59 06:59 06:59
Intake Total 2250 / 2250 1140 / 1140
Output Total 1585 / 1585 350 / 350
Balance 665 / 665 790 / 790
Review of Systems
-
History Source: Patient
All other systems: Reviewed and negative
--- NOTE | 2023-09-11 11:42 | W.PN.NEPH.PH ---
Today's Communication / Plan
-
RHC
Assessment/Plan
-
Assessment:
HFpEF
JUAN on CKD (1.7)
Hemoptysis
Nephrolithiasis
Bladder cancer
L nephreoureteroectomy
DLD
Plan:
follow BMP
continue IV lasix today for decompensated HF
wean O2 as allowed
for RHC today
repeat CXR in am
-
-
Date of Service: September 11, 2023
CC / HPI / ROS
-
Chief Complaint:
JUAN
History of Present Illness:
JUAN/Cr unchanged at 2.0
on IV lasix for decompensated HFpEF, but weights not much different
on supplemental O2 still
BP stable
Review of Systems:
no CP/SOB
on supplemental O2 3L
Labs
-
Labs:
WBC 8.5 10^3/uL (4.8-10.8) 09/10/23 06:11
RBC 4.26 10^6/uL (4.70-6.10) L 09/10/23 06:11
Hgb 13.2 g/dL (13.0-18.0) 09/10/23 06:11
Hct 38.9 % (39.0-52.0) L 09/10/23 06:11
Plt Count 236 10^3/uL (130-400) 09/10/23 06:11
Sodium 136 mmol/L (135-145) 09/11/23 04:20
Potassium 4.0 mmol/L (3.5-5.1) 09/11/23 04:20
Chloride 101 mmol/L (98-107) 09/11/23 04:20
Carbon Dioxide 27 mmol/L (22-30) 09/11/23 04:20
BUN 45 mg/dl (9-20) H 06/25/24 04:20
Creatinine 2.0 mg/dL (0.7-1.3) H 09/11/23 04:20
eGFR 31.90 09/11/23 04:20
Glucose 99 mg/dl (70-99) 09/11/23 04:20
Calcium 9.2 mg/dl (8.4-10.2) 09/11/23 04:20
Wpa-C-Nuoisplwyrs Pept 559 pg/ml 09/09/23 04:20
Albumin 3.5 g/dl (3.5-5.0) 09/08/23 10:37
Physical Exam
-
Vital Signs:
Vital Signs
Temp Pulse Resp BP Pulse Ox
97.6 F 68 20 99/58 93
09/11/23 11:33 09/11/23 11:33 09/11/23 11:33 09/11/23 11:33 09/11/23 11:33
Cardiovascular:: Regular rate and rhythm
Respiratory:: Bilateral: Coarse
Lung Excursion:: Normal
Abdomen:: Nontender and Soft
Bowel Sounds:: Normal
Extremity Edema:: None: Bilateral:
--- NOTE | 2023-09-11 13:58 | ITS.CL.CATH ---
Tube Fitter - Catheterization
Cardiac Catheterization
Procedure Report:
RIGHT HEART CATHETERIZATION
Date of Procedure: September 11, 2023
Referring: Dr. Nhan Vazquez
INDICATION: Shortness of breath with rising creatinine in the setting of IV diuresis
Hemodynamics (mmHg):
RA (m) : 8
RV (s/d,m) : 43/27, 7
PA (s/d, m) : 44/17, 26
PCWP (m) : 12
Non Invasive BP: 125/85, 102
Cardiac Output : 4.36 L/min and Cardiac Index : 2.07 L/min/m-2
Systemic vascular resistance: 21.6 Wood units or 1725 [id number](-5)
Pulmonary vascular resistance: 2.98 Wood units or 239 [id number](-5)
RADIATION SUMMARY: Fluoro Time (min): 1.2, Dose (mGy): 11.5, DAP (Gy.cm2) : 1.7
CONCLUSION:
1. Compensated right and left ventricular filling pressures
Copy to: Dr. Nhan Vazquez
--- NOTE | 2023-09-11 14:02 | PTCARENOTE ---
pt back from labor and delivery registered nurse s/p RHC. pt is AAO*3, vss, 93% on 2 L o2. pt denies any pain. pt is in the room. call alexandre within the reach. will continue plan of care.
--- NOTE | 2023-09-11 14:13 | W.PN.PUL3 ---
Today's Communication / Plan
-
Obtain CT chest
Home oxygen assessment tomorrow morning
Assessment
-
Assessment:
Mr Omari Trivedi is a delightful 88/M adm 09-07 with a 3 wk h/o worsening dyspnea on decreasing levels of exertion. 2.5 wks ago, he developed a brief episode of cough productive of few streaks of red blood, the next morning a minute clot was
expectorated, no further eventes since then. He cut tree branches in his property last week, a chore that usually takes him 1.5 hrs, though he has done it before even in hot weather, it took him a couple of mornings to complete the task. For last
few days he developed ACUÑA while climbing stairs at home. Denies CP, wheezing, dizziness, fever, presyncopal symptoms, ANGELIQUE edema. During the recent wave of hot weather he was drinking a higher than usual volume of carbonated juice. CXR on 08-28
suggested heart failure and was given a 3 d course of lasix without significant improvement
At ER, POx 90% on RA, afebrile, low normal BP, required 3L O2 by NC, received one IV dose of lasix at 40 mg. Seen at telemetry, accompanied by his kind Patience. Reports improvement of dyspnea, calm, cooperative
Impression:
HFpEF: pulmonary edema
Diastolic dysfunction
Mild to moderate MReg
Negative troponin
BNP normal for age
A/CKI
S/p mild self-limited hemoptysis 2.5 wks TUBE COATER
Conditions TUBE COATER:
AFib s/p CV, on apixaban, amiodarone at 200 mg qd
Atrial tachycardia
Biological AV replacement 2007 [facility]
Nephrolithiasis, cystoscopy with ureteral stone removal, and stent placement
Bladder cancer
Multiple TURBTs, robotic partial prostatectomy (BPH), bilateral robotic inguinal hernia repair, robotic left nephroureterectomy
HLD
Nonsmoker
SHAILESH calcified 6.3 mm nodule
Plan:
Continues to require low rate supplemental oxygen.
Continue to wean down as able. Clinically improving.
Home oxygen assessment prior to discharge. Order has been placed.
Increase activity as able
Encourage incentive spirometry
As needed nebulizers-he is not bronchospastic.
HFpEF: pulmonary edema
Diastolic dysfunction
Mild to moderate MReg
TTE 09-04: LVEF 60-65%, WMAs, stage III DD, dilated RV with normal systolic function, mild to mod MR. Well-seated #23 mm stentless freestyle aortic valve with peak/mean gradients at 10/5 mmHg. Mod TR. C/w09/23/2019, there is no significant change
-
Images reviewed:
CXR 09-07 c/w 12 and films from Feb 2021 and Mar 2016: old films with no pulm abnormalities slight volume loss at L base and chronic sternotomy wiring. Latest two films with worsening pulm and vasc congestion consistent with evolving pulmonary edema
Chest CT s/c 05-03-21 with normal lung parenchyma x calcified 6.3 mm nodule at SHAILESH. Prominent azygos vein
CT abd/p 09-06-23 with lung bases showing mild increase lung water content and mosaic pattern consistent with incipient pulm edema
CT abd/p Jan 2023 with normal lung bases
CXR PA/lat 09-08: moderate improvement of pulm parenchymal/vascular congestion
-
Status post diuresis. With good response.
Follow renal function, Diuresis per primary team/cardiology/nephrology.
Right heart catheterization 09/11/2023 noted: Compensated right and left ventricular function pulmonary capillary wedge pressure is 12.
Continue current management.
-
Will need ongoing outpatient pulmonary follow-up.
Given complaints of weight loss, abnormal chest x-ray and ongoing oxygen requirement despite diuresis with compensated right heart catheterization.
Obtain CT of the chest without IV contrast to evaluate lung parenchyma. Discussed with patient and he is agreeable.
-
During my evaluation this afternoon 09/11/2023: Pulse ox on room air 92%. Increased to 96 after deep inspiration.
Will obtain home oxygen assessment tomorrow morning.
-
S/p mild self-limited hemoptysis 2.5 wks TUBE COATER-none since admission
Continue AC: apixaban (AFib)
Observe off atbs or CSs
Full code
-
Hopefully discharge planning in the next 24 hours from the pulmonary perspective
Subjective Data
-
Date of Service:
Date of Service: September 11, 2023
Chief Complaint: Pulmonary Follow Up
Subjective:
No new complaints
Right heart catheterization noted.
Remains on low rate supplemental oxygen
Review of Systems
General: Fever (n)
Cardiopulmonary: Dyspnea (improved), Cough (n) and Sputum Production (n)
GI: Abdominal Pain (n) and Nausea (n)
Neuro: Headache (n)
Objective Data
Data Reviewed
Vital Signs / I&O / Oxygen:
Vital Signs
Temp Pulse Resp BP Pulse Ox
98.0 F 75 18 113/77 93
09/11/23 13:57 09/11/23 13:57 09/11/23 13:57 09/11/23 13:57 09/11/23 13:57
Intake and Output
09/10/23 09/11/23 09/12/23
06:59 06:59 06:59
Intake Total 2250 / 2250 1140 / 1140
Output Total 1585 / 1585 350 / 350
Balance 665 / 665 790 / 790
SaO2 93
Nasal Cannula flow liters per 2
minute
Physical Exam
General: Comfortable and Other (Able to speak in full sentences)
HEENT: Normocephalic and Moist Mucous Membranes
Cardiovascular: Regular Rhythm, Murmur (n), JVD (n), Peripheral Edema (n) and Calf Tenderness (n)
Respiratory: Wheeze (n), Crackles (Both bases) and Stridor (n)
GI: Soft, Non Distended and Non Tender
Neurology: Awake, AO x 3 and No Motor Deficits
Skin: Warm
Labs/Micro/Reports
Lab Data
09/10/23 06:11
09/11/23 04:20
[2023-09-11] MEDS: LIPITOR 10 MG PO (17:08)
[2023-09-11] MEDS: PROSCAR 5 MG PO (21:02)
[2023-09-11] MEDS: PACERONE 200 MG PO (21:03)
[2023-09-12 01:45] VITALS: BP 95/53
[2023-09-12 03:30] VITALS: BP 97/64
[2023-09-12 06:00] VITALS: BMI 23.8
[2023-09-12 07:05] VITALS: BP 93/62
[2023-09-12 07:21] LABS: Blood Urea Nitrogen 51 mg/dl (9-20); Calcium 9.1 mg/dl (8.4-10.2); Carbon Dioxide 28 mmol/L (22-30); Chloride 101 mmol/L (98-107); Estimated Creatinine Clearance 31 ml/min; Glucose 99 mg/dl (70-99); Potassium 4.2 mmol/L (3.5-5.1); Sodium 136 mmol/L (135-145)
[2023-09-12] MEDS: ELIQUIS 2.5 MG PO (07:54)
--- NOTE | 2023-09-12 10:17 | W.HF.CON ---
Heart Failure
- LV Function
Left ventricular function study result: LV Ejection fraction >40%
Ejection Fraction Percentage: 60-65
- ARNI
Patient already on ARNI: No
Heart Failure ARNI Not Indicated: LV Ejection Fraction >/= 40%
- ACEI/ARB
Patient already on ACEI/ARB: No
Heart Failure ACEI/ARB Not Indicated: LV Ejection Fraction > 40%
- Beta Mariella
Patient already on Evidence Based Beta Mariella: No
Heart Failure Evidence Based Beta Mariella Not Indicated: LV Ejection Fraction > 40%
- Mineralocorticord Receptor Antagonist
Patient already on MRA: No
Heart Failure MRA Not Indicated: LV Ejection Fraction > 40%
- SGLT-2 Inhibitor
Patient already on SGLT-2 Inhibitor: No
Heart Failure SGLT-2 Inhibitor Not Indicated: LV Ejection Fraction >40%
- Afib Anticoagulation
Patient already on Anticoagulation for Afib: Yes
- NYHA CHF Classification
NYHA CHF Classification Level: Class III - Symptoms w/ min exertion, interferes w/ nml daily activity (home oxygen evaluation)
- ACC/AHA Stage
ACC/AHA Stage: Stage C: Symptomatic Heart Failure
--- NOTE | 2023-09-12 10:54 | W.PN.HOSP.TC ---
Addendum entered and electronically signed by Prudencio Rodríguez DO 09/12/23 14:31:
Pulmonary and cardiology okay with discharge. No need for diuretics on discharge.
Follow-up with nephrology and primary care doctor.
Follow-up with pulmonary for suspected interstitial lung disease. Amiodarone discontinued.
Home oxygen arranged.
Original Note:
Today's Communication/Plan
-
Await pulmonary, cardiology input
Assessment / Plan
Assessment / Plan
Gen-AAOx3, NAD
HEENT-NC, AT, anicteric, clear oral mm
Neck-supple
CV-reg, no M, +S1/S2
Lungs-clear B/L
Abd-soft, NT, ND
Ext-no edema
Musculoskeletal-no cyanosis, clubbing
Skin-warm and dry
Neuro-grossly non-focal
Psych-calm, cooperative
Acute Hypoxic Respiratory Insufficiency -due to acute heart failure exacerbation, possible interstitial lung disease. Chest x-ray reviewed by myself, bilateral pulmonary edema noted. Currently on 2 L nasal cannula oxygen, wean down as able.
Concern for New-Onset HFpEF
Right Ventricle Dilated on Recent Echocardiogram
Transient Hemoptysis a Few Weeks Ago. Has had a productive cough for 1 year, worsened 1 month ago. Had COVID infection a year and a half ago, not requiring hospitalization.
Pulse ox 86% on room air with ambulation, will need home oxygen therapy. Pulse ox 89% ambulating with 3 L of oxygen.
Patient is in need of oxygen at 3 liters/minute via nasal cannula continuously due to pulse oximetry of 88% on room air at rest. Oxygen will help to improve hypoxemia. Patient is mobile within the home. DuoNeb therapy has been tried and is
ineffective in treating hypoxemia related symptoms. Oxygen is needed to improve symptoms.
Acute heart failure with preserved EF exacerbation -Recently was told by his PCP that he may have new-onset CHF. Right heart catheterization showed PCWP of 12 mmHg. Will discontinue IV Lasix, start oral Lasix if okay with cardiology.
-He took Lasix outpatient for 3 days, about 1 week prior to presentation, but developed worsening shortness of breath after finishing his 3-day Lasix course
-CXR suggest CHF
-proBNP 742: indeterminate given his age
-Echo was done on 09/05/23, results are above
-Patient is noted to require more oxygen on ambulation
Possible interstitial lung disease -CT chest from today reviewed. Widespread prominence of the pulmonary interstitium noted. Broad differential diagnosis. Await pulmonary input. Discussed with patient.
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 Possible cardiorenal syndrome from heart failure exacerbation. Nephrology following. Renal/bladder ultrasound unrevealing, left nephrectomy noted. Will need outpatient nephrology follow-up, discussed
with patient.
Significant weight loss -Patient was given Lasix by outpatient provider for 3 days about 1 week prior to presentation, lost weight while taking it, but continued to lose weight for the several days after stopping Lasix. Patient believes he has
losing about a pound a day. Reportedly was 199 pounds 1 month ago, 182 today. Concern for underlying malignancy as a possibility. Discussed with patient that he should follow-up closely with his primary care doctor to investigate further.
A-fib status post cardioversion
Atrial tachycardia
Atrial valve repair
-Continue Amiodarone
-Continue home Eliquis (but at reduced dosing of 2.5 mg BID given renal function and age)
Aortic valve replacement 2007
History of LBBB intra-op
Nephrolithiasis
Cystoscopy with ureteral stone removal, and stent placement
Bladder cancer status post multiple TURBTs
Robotic partial prostatectomy
Bilateral robotic inguinal hernia repair
Robotic left nephroureterectomy
BPH
-Continue Finasteride
Hyperlipidemia-Continue Simvastatin
Full code
Anticipated Discharge: Within 24 hours
Subjective/Interval History
-
Date of Service: September 12, 2023
Patient seen and examined. Still with dyspnea on exertion but mildly improved compared to admission. Complaining of productive cough, yellow phlegm.
Objective Data
-
Labs:
Laboratory Results
09/12/23
05:24
Sodium 136
Potassium 4.2
Chloride 101
Carbon Dioxide 28
BUN 51 H
Creatinine 2.0 H
Glucose 99
Calcium 9.1
Vital Signs:
Vital Signs
Temp Pulse Resp BP Pulse Ox
97.6 F 80 18 93/62 98
09/12/23 07:05 09/12/23 07:05 09/12/23 07:05 09/12/23 07:05 09/12/23 07:05
I&O
09/11/23 09/12/23 09/13/23
06:59 06:59 06:59
Intake Total 1140 / 1140 1020 / 1020
Output Total 350 / 350 1500 / 1500
Balance 790 / 790 -480 / -480
Review of Systems
-
History Source: Patient
All other systems: Reviewed and negative
[2023-09-12 11:25] VITALS: BP 100/63
--- NOTE | 2023-09-12 11:35 | W.PN.PUL3 ---
Today's Communication / Plan
-
Outpatient pulmonary follow-up
Recommend amiodarone discontinuation if possible.
Oxygen limitation at discharge
Hopefully discharge with short-term follow-up in my office.
Sign off
Assessment
-
Assessment:
Mr Omari Trivedi is a delightful 88/M adm 09-07 with a 3 wk h/o worsening dyspnea on decreasing levels of exertion. 2.5 wks ago, he developed a brief episode of cough productive of few streaks of red blood, the next morning a minute clot was
expectorated, no further eventes since then. He cut tree branches in his property last week, a chore that usually takes him 1.5 hrs, though he has done it before even in hot weather, it took him a couple of mornings to complete the task. For last
few days he developed ACUÑA while climbing stairs at home. Denies CP, wheezing, dizziness, fever, presyncopal symptoms, ANGELIQUE edema. During the recent wave of hot weather he was drinking a higher than usual volume of carbonated juice. CXR on 08-28
suggested heart failure and was given a 3 d course of lasix without significant improvement
At ER, POx 90% on RA, afebrile, low normal BP, required 3L O2 by NC, received one IV dose of lasix at 40 mg. Seen at telemetry, accompanied by his kind Patience. Reports improvement of dyspnea, calm, cooperative
Impression:
HFpEF: pulmonary edema
Diastolic dysfunction
Mild to moderate MReg
Negative troponin
BNP normal for age
A/CKI
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
AFib s/p CV, on apixaban, amiodarone at 200 mg qd
Atrial tachycardia
Biological AV replacement 2007 [facility]
Nephrolithiasis, cystoscopy with ureteral stone removal, and stent placement
Bladder cancer
Multiple TURBTs, robotic partial prostatectomy (BPH), bilateral robotic inguinal hernia repair, robotic left nephroureterectomy
HLD
Nonsmoker
SHAILESH calcified 6.3 mm nodule
Plan:
Continues to require low rate supplemental oxygen.
Oxygen assessment today 09/12/2023: 88% on room air. 86% with ambulation. Required 3 L of supplemental oxygen. Should be discharged on supplemental oxygen.
Overall clinically improved.
HFpEF: pulmonary edema
Diastolic dysfunction
Mild to moderate MReg
TTE 09-04: LVEF 60-65%, WMAs, stage III DD, dilated RV with normal systolic function, mild to mod MR. Well-seated #23 mm stentless freestyle aortic valve with peak/mean gradients at 10/5 mmHg. Mod TR. C/w09/23/2019, there is no significant change
-
Images reviewed:
CXR - c/w 12 and films from Feb 2021 and Mar 2016: old films with no pulm abnormalities slight volume loss at L base and chronic sternotomy wiring. Latest two films with worsening pulm and vasc congestion consistent with evolving pulmonary edema
Chest CT s/c 05-03-21 with normal lung parenchyma x calcified 6.3 mm nodule at SHAILESH. Prominent azygos vein
CT abd/p 09-06-23 with lung bases showing mild increase lung water content and mosaic pattern consistent with incipient pulm edema
CT abd/p Jan 2023 with normal lung bases
CXR PA/lat 09-08: moderate improvement of pulm parenchymal/vascular congestion
-
Status post diuresis. With good response.
Follow renal function, Diuresis per primary team/cardiology/nephrology.
Right heart catheterization 09/11/2023 noted: Compensated right and left ventricular function pulmonary capillary wedge pressure is 12.
Continue current management.
-
Will need ongoing outpatient pulmonary follow-up.
Given complaints of weight loss, abnormal chest x-ray and ongoing oxygen requirement despite diuresis with compensated right heart catheterization.
CT chest: Noted with increased interstitial markings bilaterally. Peripheral, subpleural. Patchy groundglass opacities. Asymmetric distribution. Suspect interstitial lung disease-undifferentiated.
Changes are new compared to 2 years ago.
Differential diagnosis is broad including idiopathic interstitial pneumonias, drug toxicities as patient is on amiodarone.
He also reports exposures to a burn pit that he has at home. About 6 to 7 months ago he got exposed significantly and had some red eye and coughing with shortness of breath. Unclear if this is related to that exposure.
Less likely sarcoidosis or hypersensitivity pneumonitis.
Will need outpatient evaluation for this.
Discussed with cardiology, possibility of discontinuation of amiodarone. At this point no indication for corticosteroids as there is not much groundglass opacities noted.
Patient is willing to follow-up in the outpatient setting. Information will be left in the chart.
-
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
Continue AC: apixaban (AFib)
Observe off atbs or CSs
Full code
-
Outpatient pulmonary follow-up, evaluation for interstitial lung disease.
Subjective Data
-
Date of Service:
Date of Service: September 12, 2023
Chief Complaint: Pulmonary Follow Up
Subjective:
No new complaints
On low rate supplemental oxygen
Denies any cough or phlegm production
Feels better from the shortness of breath perspective.
Review of Systems
General: Fever (n)
Cardiopulmonary: Dyspnea (n) and Cough (n)
GI: Abdominal Pain (n)
Objective Data
Data Reviewed
Vital Signs / I&O / Oxygen:
Vital Signs
Temp Pulse Resp BP Pulse Ox
97.6 F 80 18 93/62 98
09/12/23 07:05 09/12/23 07:05 09/12/23 07:05 09/12/23 07:05 09/12/23 07:05
Intake and Output
09/11/23 09/12/23 09/13/23
06:59 06:59 06:59
Intake Total 1140 / 1140 1020 / 1020
Output Total 350 / 350 1500 / 1500
Balance 790 / 790 -480 / -480
SaO2 98
Nasal Cannula flow liters per 2
minute
Physical Exam
General: Comfortable and Other (Able to speak in full sentences)
HEENT: Normocephalic and Moist Mucous Membranes
Cardiovascular: Regular Rhythm, Murmur (n), JVD (n), Peripheral Edema (n) and Calf Tenderness (n)
Respiratory: Wheeze (n), Crackles (Both bases) and Stridor (n)
GI: Soft, Non Distended and Non Tender
Neurology: Awake, AO x 3 and No Motor Deficits
Skin: Warm
Labs/Micro/Reports
Lab Data
09/10/23 06:11
09/12/23 05:24
--- NOTE | 2023-09-12 12:25 | CM ---
Addendum entered by Cindy Sharp RN 09/12/23 13:34:
Family requested walker . Script sent to [employer] and to be delivered with oxygen today .
Original Note:
MD indicated ready for discharge.
Home oxygen test done Pt qualifies for home oxygen .
Spoke with pt he said he did not have a preference but would like as soon as possible.
Contacted [facility] . They accept insurance. All documentation faxed to [facility].
Pt and will need to let me know which VN they want.
IMM reviewed signed on chart.
Pt requested [facility] Liaison Valeri hudson.
will drive him home.
PLAN Home with [facility]
--- NOTE | 2023-09-12 12:57 | VNURNOTE ---
Home Health Liaison met with patient at 1200 to discuss [facility] nurse/therapy, visits, schedule and homebound status. Patient is agreeable and understands that visits at home will be 2-3 x per week to assess and teach medical management. Patient has a
scale and is able to log a daily weight.
[facility] brochure provided with contact information. Patient is aware that [facility] will contact him for start of care in 1-2 days after discharge from .
[facility] referral completed in [facility].
--- NOTE | 2023-09-12 13:40 | W.PN.CARDCBS ---
Addendum entered and electronically signed by lEvis Rodriguez MD 09/12/23 18:09:
I saw and examined the patient.
The Clinical Review Specialist's note was reviewed and I agree with the note.
Comment: Briefly, 88-year-old man presenting with worsening dyspnea concerning for decompensated heart failure
Underwent IV diuresis without significant improvement in his respiratory status
Subsequently had right heart catheterization with normal LV filling pressures on 09/11/23
Based on pulmonology evaluation there is concern that he is developing interstitial lung disease possibly related to amiodarone
Plan to discontinue amiodarone
Would not discharge on standing diuretic, could be given on an as-needed basis going forward
In addition he is planned for cystoscopy to evaluate and treat possible bladder cancer and he has asked me to comment, this is not a high risk procedure
Patient is at elevated but not prohibitive risk based on the RCRI however he is optimized from a cardiac standpoint
No further cardiovascular testing necessary prior to procedure from my standpoint
Original Note:
Today's Communication / Plan
-
Amiodarone stopped today
PCWP was 12 by RHC, Lasix stopped, patient does not need a diuretic upon d/c
Impression / Plan
-
PCP: Dr. Brant Kruse
Shot Bagger: Dr. Tomi Ring
Impression:
Newly diagnosed interstitial lung disease by CT 09/11/23
Approximately 1 month acute worsening dyspnea on exertion and exertional fatigue
2 episodes of scant hemoptysis with aggressive cough occurring approximately 2 and half weeks ago none recent
Paroxysmal atrial fibrillation
s/p PVI 10/08/2019
s/p PVI, posterior wall ablation, mitral annular flutter ablation 11/17/2020
s/p posterior L atrial wall ablation, right atrial tachycardia ablation 06/30/2021
Failed sotalol
Chronic amiodarone therapy from 01/2022 until 09/12/23
Paroxysmal atypical atrial flutter
Paroxysmal atrial tachycardia
Chronic anticoagulation with Eliquis, no recent interruption
Bladder cancer s/p L robotic nephroureterectomy 09/20/2022, multiple TURBTs with new bladder tumors and plan for resection in September with Dr. Wilburn
Multiple cystoscopies.
History of nephrolithiasis with stone removal and stent placement
Chronic renal insufficiency
h/o aortic valve replacement 2007
HLD
BPH
Lexiscan stress test at [facility] dated 06/30/2008: No evidence of myocardial ischemia or scar. EF 58%
Echo 09/05/2023: Normal left ventricular size and systolic function with no regional wall motion abnormality and EF estimated 60-65%. Mild LVH. Grade 3 diastolic dysfunction with increased LV filling pressures. Dilated right ventricle with normal
RV systolic function. Severely dilated atria. Mild to moderate MR. Well-seated number 23 mm stentless freestyle aortic valve with peak/mean gradients 10/5 mmHg. Moderate TR. Estimated pulmonary artery pressure 57 mmHg
Plan:
-Patient had RHC 09/11/23 for ongoing hypoxia despite attempts at diuresis for what was thought to be acute HFpEF on admission. RHC on 09/11/23 showed PCWP 12 mmHg.
-Pulmonology following and patient had CT scan 09/11/23 that showed increased interstitial markings B/L with patchy groundglass opacities concerning for ILD. Patient talked with Pulmonology and the plan for now is to stop amiodarone, but patient will
need additional testing with ILD serologies as an outpatient. Pending improvement might need steroids. He will need home oxygen as well which is working on.
-Lasix IV stopped and Cre stable.
-Recent echo 09/05/23 with preserved EF and mild-mod MR and stable aortic valve replacement.
-Noted hemoptysis recently, however has had no recurrence recently. Continues on Eliquis 2.5mg BID (Age, creat). Hgb stable.
-Remains in SR on review of telemetry. Amiodarone was started 01/2022, previously patient had been on sotalol, but was having frequent breakthroughs of Afib so transitioned to amiodarone.
-Bladder cancer with recurrent tumors noted, planning eventual resection w/ Dr. Wilburn on 09/28/23. From a cardiac standpoint patient it not having chest pain. There are no acute cardiac issues. Patient will need to follow up with Pulmonology.
HPI: Omari is an 88 year old male who follows routinely with my colleague, Dr. Richardson Ring. 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
January 2022, #23 bioprosthetic aortic valve replacement 2007, chronic anticoagulation with Eliquis without history of stroke/TIA HLD, and bladder cancer s/p L robotic nephroureterectomy with surveillance cystoscopies every 6 months with "Dony"Cosmo. He was recently found to have recurrent bladder tumors and had been scheduled for a repeat cystoscopy which was canceled secondary to worsening shortness of breath over the last month. He did have COVID-19 back in 2021 and felt that the
worsening of his shortness of breath was related to long-haul COVID. He denies recent URI/COVID or influenza. Approximately 3 weeks ago he had 2 episodes of hemoptysis after aggressive coughing first thing in the morning. He has had no recurrent
hemoptysis. Over last weekend he was prescribed Lasix which he took over 3 days with perhaps slightly improved symptoms. He did not continue the Lasix. This past week, he wanted to get trees trimmed on his property and spent hours outside trying
to complete this chore. He states that although he was trying to stay hydrated he was quite short of breath. Following this his shortness of breath worsened with activity such as walking up and down the stairs which she is usually able to do
without difficulty. The day of admission he developed extreme dyspnea on exertion that required him to lay down following walking up stairs. He called our office on September 05 and referred to the emergency department. He denies chest pain or
pressure. He denies orthopnea or PND. He denies wheezing. He denies fevers or chills. He denies lower extremity edema. He has had no recent interruption of anticoagulation or recent travel. He is tentatively scheduled for bladder tumor removal
September [address] Wilburn. Patient is a non-smoker and does not routinely follow with pulmonary.
Progress Note - Shot Bagger
Subjective
Date of Service: September 12, 2023
No chest pain
Objective
Labs:
09/10/23 06:11
09/12/23 05:24
Labs
Hgb 13.2 g/dL (13.0-18.0) 09/10/23 06:11
Hct 38.9 % (39.0-52.0) L 09/10/23 06:11
Plt Count 236 10^3/uL (130-400) 09/10/23 06:11
Sodium 136 mmol/L (135-145) 09/12/23 05:24
Potassium 4.2 mmol/L (3.5-5.1) 09/12/23 05:24
BUN 51 mg/dl (9-20) H 09/12/23 05:24
Creatinine 2.0 mg/dL (0.7-1.3) H 09/12/23 05:24
Glucose 99 mg/dl (70-99) 09/12/23 05:24
Troponins
09/09/23 09/09/23
17:21 23:21
Troponin I Cancelled Cancelled
Vital Signs and I&O:
Vital Signs
Temp Pulse Resp BP Pulse Ox
97.5 F 82 16 100/63 92
09/12/23 11:25 09/12/23 11:25 09/12/23 11:25 09/12/23 11:25 09/12/23 11:25
Vital Signs
Temp Pulse Resp BP Pulse Ox
97.5 F 82 16 100/63 92
09/12/23 11:25 09/12/23 11:25 09/12/23 11:25 09/12/23 11:25 09/12/23 11:25
Intake & Output
09/10/23 09/11/23 09/12/23 09/13/23
06:59 06:59 06:59 06:59
Intake Total 2250 / 2250 1140 / 1140 1020 / 1020
Output Total 1585 / 1585 350 / 350 1500 / 1500
Balance 665 / 665 790 / 790 -480 / -480
Physical Exam
Physical Exam
GEN: AAO x3
HEENT: MMM
LUNGS: Wearing oxygen at 4 L NC. No audible wheeze
CV: Reg, 1/6 syst murmur
EXT: No edema B/L LE
NEURO: Gross non-focal
SKIN: Warm, dry, no rash
--- NOTE | 2023-09-12 14:00 | W.PN.NEPH.PH ---
Today's Communication / Plan
-
- hold diuretics
Assessment/Plan
-
Assessment:
HFpEF
JUAN on CKD (1.7)
Hemoptysis
Nephrolithiasis
Bladder cancer
L nephreoureteroectomy
DLD
Plan:
follow BMP. Cr remains elevated but stable at 2, ctm
CT chest with c/f interstitial lung disease --> pulmonary following
PCWP of 12, hold further diuresis
wean O2 as allowed
he will need to follow up with nephrology in the outpatient setting, patient made aware
-
-
Date of Service: September 12, 2023
CC / HPI / ROS
-
Chief Complaint:
JUAN
History of Present Illness:
JUAN/Cr unchanged at 2.0
was previously on lasix for concern for ADHF but RHC does not indicate volume overload. CT chest with c/f ILD
on supplemental O2 still
BP stable
Review of Systems:
no CP/SOB
on supplemental O2 3L
Labs
-
Labs:
WBC 8.5 10^3/uL (4.8-10.8) 09/10/23 06:11
RBC 4.26 10^6/uL (4.70-6.10) L 09/10/23 06:11
Hgb 13.2 g/dL (13.0-18.0) 09/10/23 06:11
Hct 38.9 % (39.0-52.0) L 09/10/23 06:11
Plt Count 236 10^3/uL (130-400) 09/10/23 06:11
Sodium 136 mmol/L (135-145) 09/12/23 05:24
Potassium 4.2 mmol/L (3.5-5.1) 09/12/23 05:24
Chloride 101 mmol/L (98-107) 09/12/23 05:24
Carbon Dioxide 28 mmol/L (22-30) 09/12/23 05:24
BUN 51 mg/dl (9-20) H 09/12/23 05:24
Creatinine 2.0 mg/dL (0.7-1.3) H 09/12/23 05:24
eGFR 31.90 09/12/23 05:24
Glucose 99 mg/dl (70-99) 09/12/23 05:24
Calcium 9.1 mg/dl (8.4-10.2) 09/12/23 05:24
Svc-Y-Irarbnchcvg Pept 559 pg/ml 09/09/23 04:20
Albumin 3.5 g/dl (3.5-5.0) 09/08/23 10:37
Physical Exam
-
Vital Signs:
Vital Signs
Temp Pulse Resp BP Pulse Ox
97.5 F 82 16 100/63 92
09/12/23 11:25 09/12/23 11:25 09/12/23 11:25 09/12/23 11:25 09/12/23 11:25
Cardiovascular:: Regular rate and rhythm
Respiratory:: Bilateral: Coarse
Lung Excursion:: Normal
Abdomen:: Nontender and Soft
Bowel Sounds:: Normal
Extremity Edema:: None: Bilateral:
Alexander Catheter: No
--- NOTE | 2023-09-12 14:30 | W.DS.TRANS ---
DC Summary - Home Manager
-
Discharge Instructions:
Sleep Apnea Risk Intermediate
Discharge Diagnosis/Procedures Interstitial lung disease, cardiac
catheterization
Diet Low Cholesterol,2 Gram Sodium,Other diet
Additional Diets 64 ounce daily fluid restriction
Activity As tolerated
Driving Restrictions As prior to admission
Bathing Restrictions None
Instructions: *[facility] Heart Failure Instructions
Stand-Alone Forms: DC Instructions- Cath/EP Lab
Changes to Home Medications: Yes
Discharge Medications:
DC Medications w/original date entered in [employer]
finasteride 5 mg tablet 5 mg PO HS prostate 05/25/10
simvastatin 10 mg tablet 10 mg PO QPM High cholesterol 09/04/19
zolpidem 5 mg tablet 5 mg PO HSPRN PRN sleep 09/12/22
cbsyipkqjki-uslvkgggo-asg C-Mn 500 mg-400 mg capsule (Glucosamine Chondroitin Maximum Strength) 1 cap PO DAILY 02/19/23
apixaban 2.5 mg tablet (Eliquis) 2.5 mg PO BID #60 tabs 09/12/23
Home Medication Changes
Stop amiodarone
Reduce dose of Eliquis
Pending Results: No
[2023-09-12 14:50] VITALS: BP 110/69
[2023-09-12] MEDS: PREVNAR 20 0.5 ML IM (15:01)
== END 2023-09-12 16:22 | disposition home health service (06) | DRG 287 ==
LOC: 4 EAST ACU 16:17
PROVIDERS: Emergency Medicine; Internal Medicine Interventional Cardiology; ADMITTING PHYSICIAN Hospitalist; ATTENDING PHYSICIAN Hospitalist; CONSULT PHYSICIAN Internal Medicine Cardiovascular Disease; CONSULT PHYSICIAN Internal Medicine Pulmonary Disease; CONSULT PHYSICIAN Student in an Organized Health Care Education/Training Program; EMERGENCY PHYSICIAN Emergency Medicine; FAMILY PHYSICIAN Internal Medicine
PROC: 4A023N6 Measurement of Cardiac Sampling and Pressure, Right Heart, Percutaneous Approach (ICD-10-PCS; 2023-09-11)
DX: I50.31 Acute diastolic (congestive) heart failure (principal); J84.9 Interstitial pulmonary disease, unspecified; N17.9 Acute kidney failure, unspecified; I47.19 Other supraventricular tachycardia; R09.02 Hypoxemia; N18.32 Chronic kidney disease, stage 3b; I48.0 Paroxysmal atrial fibrillation
CPT/HCPCS: 71046; 71250; 76770; 80048; 80053; 81003; 81015; 83735; 83880; 84300; 84484; 85025; 85027; 90677; 93005; 93451; 96374; 99285; C1769; C1894; G0009

== ENCOUNTER 2023-09-18 08:49 | Inpatient (IN) | payer OTHER, SELFPAY ==
[2023-09-17] VITALS (12 sets, daily range): BP systolic 96–137; BP diastolic 57–95; BMI 24.1
--- NOTE | 2023-09-17 09:50 | ED.GENMED ---
History of Present Illness
<Therese Khalil MINE EQUIPMENT DESIGN ENGINEER - Last Filed: 09/18/23 06:58>
General
Chief Complaint: Breathing Problem
Source: patient, spouse and family
Exam Limitations: none
Time Seen by Provider: 09/17/23 09:42
Nursing documentation reviewed up to this point in time: agreed with
History of Present Illness
History of Present Illness:
88-year-old male with history of admission 09 07- for acute hypoxic respiratory insufficiency, diagnosed at that time with interstitial lung disease. 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 History of A-fib on Eliquis.
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
Cardiac catheterization at that time ruled out volume overload/CHF. CT of chest suggested interstitial lung process. Patient was discharged on home oxygen at 3 L.
Patient states he is here today because of a 5 pound weight gain in the past week, increasing shortness of breath and pulse ox reading 88% even on the oxygen.
Patient's son has been in contact with cena Dr. Reyes who has not seen the patient yet but is aware that patient is coming in.
Pt denies CP, denies n/v/d/c, denies abdominal pain.
Past History
<Therese Khalil MINE EQUIPMENT DESIGN ENGINEER - Last Filed: 09/18/23 06:58>
Past History
ED Past Medical History: Arrthythmia (On Eliquis), Hypercholesterolemia, Other (Kidney stones) and Other (Recently diagnosed with interstitial lung disease 08/2023 on home oxygen 3 L/min)
ED Past Surgical History: Cardiac (Porcine valve replacement) and Other (Cystoscopy with ureteral stone removal, and stent placement)
Social History
Tobacco: Non-smoker
Alcohol: Occasional
Personal:
Living: with family
Employment: Retired
Family History
Family History: Negative CAD
Review of Systems
<Therese V. Day, MINE EQUIPMENT DESIGN ENGINEER - Last Filed: 09/18/23 06:58>
Review of Systems
Allergies reviewed?: Yes
All Other Systems: ROS reviewed and negative except as documented in HPI and ROS
Constitutional: Reports fatigue; Denies fever
Respiratory: Reports trouble breathing; Denies cough
Cardiac: Denies chest pain, diaphoresis or palpitations
ABD/GI: Denies abdominal pain, nausea, vomiting, diarrhea or anorexia
: Denies dysuria, frequency, difficulty voiding or urgency
Musculoskeletal: Denies edema
Skin: Reports no symptoms
Neurological: Reports no symptoms
Phy Exam
<Therese Khalil, MINE EQUIPMENT DESIGN ENGINEER - Last Filed: 09/18/23 06:58>
Physical Exam
Physical Exam:
GENERAL: No acute distress. A&Ox3.
CONSTITUTIONAL: Afebrile.
EYES: Clear, conjunctivae normal
ENMT: moist mucus membranes, Pharynx nl
RESPIRATORY: Regular respirations, nonlabored, lungs clear. Pulse ox 88% on arrival on his home O2 device. Transferring from to stretcher dropped to 78%, initially at rest on 4L Pulse ox 81% placed on 6 L O2 NC w pulse ox 96%
CARDIOVASCULAR: Regular rate and rhythm, no murmurs, no rubs.
GI: Soft, nontender, normal BS
MUSCULOSKELETAL: Moves with ease. Well perfused. No edema
SKIN: Warm, dry, pink
PSYCH: Normal mood and affect. Well kept, interactive and appropriate
NEUROLOGIC: Awake, alert and oriented. No focal neurological deficits
Scores
<Robert Fleming, DO - Last Filed: 09/17/23 15:55>
Heart Failure Risk
Heart Failure Risk Score: Not Applicable
Course
<Therese Khalil, MINE EQUIPMENT DESIGN ENGINEER - Last Filed: 09/18/23 06:58>
Orders/Labs/Results
Orders:
Orders
09/17/23
Electrocardiogram (*1) Stat
Reason for Study: Chest Pain
Comment: DONE NO ORDER ENTERED
09/17/23 09:42
ECG [Electrocardiogram (*1)] Urgent
Reason for Study: Shortness of Breath
EKG- Treatment ONCE
09/17/23 09:43
Complete Blood Count/With Diff Urgent
Comprehensive Metabolic Panel Urgent
NT-proBNP Urgent
Troponin I Urgent
09/17/23 09:55
CR Chest - 2 Views Urgent
Comment:
Reason For Exam: increased SOB, hypoxic
09/17/23 14:54
Respiratory Culture/Gram Stain Urgent
MARYANN Source: Sputum
Specimen Description:
09/17/23 Dinner
Sodium, 2 Gram
At Your Request: Full Participation
09/17/23 15:49
Furosemide [Lasix] 40 mg IV NOW STA
09/17/23 15:55
Sputum Culture [Respiratory Culture/Gram Stain] Routine
MARYANN Source: Sputum
Specimen Description:
09/17/23 16:21
PULMONARY CONSULT Routine
Consulting Provider: Mamadou Faustin
Was physician already notified: Yes
09/17/23 16:22
CARDIOLOGY CONSULT Routine
Consulting Provider: Nhan Vazquez
Was physician already notified: Yes
09/17/23 16:33
COVID-19 Antigen Urgent
Source: Nasal Swab
09/17/23 16:46
Admit/Transfer Patient As Directed
Co-Sign Provider:
Level of Care: Observation services
Assign to:: Telemetry
Physician / Group: Kelvin
Diagnosis: Acute hypoxic respiratory failure
Reason for Telemetry: Other
Other Reason for Telemetry: Interstitial lung disease, acute on chronic HFpEF, Afib
Date to Stop Telemetry: 09/19/23
Time to Stop Telemetry: 11:00
09/17/23 17:15
Troponin I Urgent
Influenza A+B Rapid Molecular Urgent
MARYANN Source: Nasal Swab
Specimen Description:
09/17/23 17:57
Zolpidem Tartrate [Ambien] 2.5 mg PO HSPRN PRN
09/17/23 17:57
I AND O [Intake/ Output] As Directed
Frequency: Per unit guidelines
Weight As Directed
Frequency: Daily
09/17/23 18:00
Dexamethasone Sod Phosphate [Decadron] 4 mg IV Q8H
09/17/23 20:00
Apixaban [Eliquis] 2.5 mg PO BID
09/17/23 22:00
Atorvastatin [Lipitor] 10 mg PO HS
Finasteride [Proscar] 5 mg PO HS
09/17/23 22:16
Troponin I Q6H
09/18/23 06:00
BMP [Basic Metabolic Panel] IN AM
Complete Blood Count/No Diff IN AM
09/19/23 11:00
DC Protocol for Telemetry ONCE
Abnormal Lab Results
09/17/23
09:43
RBC 4.37 L 10^6/uL
(4.70-6.10)
Absolute Monos (auto) 0.9 H 10^3/uL
(0.1-0.6)
Lymphocytes % 16.6 L %
(20.5-51.1)
Monocytes % 10.3 H %
(1.7-9.3)
BUN 35 H mg/dl
(9-20)
Creatinine 1.9 H mg/dL
(0.7-1.3)
Glucose 132 H mg/dl
(70-99)
Albumin 3.3 L g/dl
(3.5-5.0)
09/17/23 09:43
09/17/23 09:43
Vital Signs
Initial and Last Documented VS:
Initial Vital Signs
Pulse Ox
76
09/17/23 09:30
Last Documented Vital Signs
Temp Pulse Resp BP Pulse Ox
97.5 F 77 18 104/65 92
09/18/23 03:25 09/18/23 03:25 09/18/23 03:25 09/18/23 03:25 09/18/23 03:25
<Robert Fleming, DO - Last Filed: 09/17/23 15:55>
Orders/Labs/Results
Orders:
Orders
09/17/23
Electrocardiogram (*1) Stat
Reason for Study: Chest Pain
Comment: DONE NO ORDER ENTERED
09/17/23 09:42
ECG [Electrocardiogram (*1)] Urgent
Reason for Study: Shortness of Breath
EKG- Treatment ONCE
09/17/23 09:43
Complete Blood Count/With Diff Urgent
Comprehensive Metabolic Panel Urgent
NT-proBNP Urgent
Troponin I Urgent
09/17/23 09:55
CR Chest - 2 Views Urgent
Comment:
Reason For Exam: increased SOB, hypoxic
09/17/23 14:54
Respiratory Culture/Gram Stain Urgent
MARYANN Source: Sputum
Specimen Description:
09/17/23 Dinner
Sodium, 2 Gram
At Your Request: Full Participation
09/17/23 15:49
Furosemide [Lasix] 40 mg IV NOW STA
09/17/23 15:55
Sputum Culture [Respiratory Culture/Gram Stain] Routine
MARYANN Source: Sputum
Specimen Description:
09/17/23 16:21
PULMONARY CONSULT Routine
Consulting Provider: Mamadou Faustin
Was physician already notified: Yes
09/17/23 16:22
CARDIOLOGY CONSULT Routine
Consulting Provider: Nhan Vazquez
Was physician already notified: Yes
09/17/23 16:33
COVID-19 Antigen Urgent
Source: Nasal Swab
09/17/23 16:46
Admit/Transfer Patient As Directed
Co-Sign Provider:
Level of Care: Observation services
Assign to:: Telemetry
Physician / Group: Kelvin
Diagnosis: Acute hypoxic respiratory failure
Reason for Telemetry: Other
Other Reason for Telemetry: Interstitial lung disease, acute on chronic HFpEF, Afib
Date to Stop Telemetry: 09/19/23
Time to Stop Telemetry: 11:00
09/17/23 17:15
Troponin I Urgent
Influenza A+B Rapid Molecular Urgent
MARYANN Source: Nasal Swab
Specimen Description:
09/17/23 17:57
Zolpidem Tartrate [Ambien] 2.5 mg PO HSPRN PRN
09/17/23 17:57
I AND O [Intake/ Output] As Directed
Frequency: Per unit guidelines
Weight As Directed
Frequency: Daily
09/17/23 18:00
Dexamethasone Sod Phosphate [Decadron] 4 mg IV Q8H
09/17/23 20:00
Apixaban [Eliquis] 2.5 mg PO BID
09/17/23 22:00
Atorvastatin [Lipitor] 10 mg PO HS
Finasteride [Proscar] 5 mg PO HS
09/17/23 22:16
Troponin I Q6H
09/18/23 06:00
BMP [Basic Metabolic Panel] IN AM
Complete Blood Count/No Diff IN AM
09/19/23 11:00
DC Protocol for Telemetry ONCE
Abnormal Lab Results
09/17/23
09:43
RBC 4.37 L 10^6/uL
(4.70-6.10)
Absolute Monos (auto) 0.9 H 10^3/uL
(0.1-0.6)
Lymphocytes % 16.6 L %
(20.5-51.1)
Monocytes % 10.3 H %
(1.7-9.3)
BUN 35 H mg/dl
(9-20)
Creatinine 1.9 H mg/dL
(0.7-1.3)
Glucose 132 H mg/dl
(70-99)
Albumin 3.3 L g/dl
(3.5-5.0)
09/17/23 09:43
09/17/23 09:43
Vital Signs
Initial and Last Documented VS:
Initial Vital Signs
Pulse Ox
76
09/17/23 09:30
Last Documented Vital Signs
Temp Pulse Resp BP Pulse Ox
97.5 F 77 18 104/65 92
09/18/23 03:25 09/18/23 03:25 09/18/23 03:25 09/18/23 03:25 09/18/23 03:25
<Therese Khalil NP - Last Filed: 09/18/23 06:58>
MDM/Problems Addressed
Differential Diagnosis Includes:
CHF, exacerbation of pulmonary fibrosis
MDM/Problems Addressed:
88-year-old male with history of admission 09 07- for acute hypoxic respiratory insufficiency, diagnosed at that time with interstitial lung disease. 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 History of A-fib on Eliquis.
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
Cardiac catheterization at that time ruled out volume overload/CHF. CT of chest suggested interstitial lung process. Patient was discharged on home oxygen at 3 L.
Patient states he is here today because of a 5 pound weight gain in the past week, increasing shortness of breath and pulse ox reading 88% even on the oxygen.
Patient's son has been in contact with cena Dr. Reyes who has not seen the patient yet but is aware that patient is coming in.
Pt denies CP, denies n/v/d/c, denies abdominal pain.
10:45 AM:
CBC with no clinically significant abnormality
CMP: BUN/creat 35/1.9, patient's baseline otherwise no clinically significant abnormality
EKG sinus rhythm with first-degree block with PVCs. Left axis deviation. Left ventricular hypertrophy no significant changes
11:30 AM
Patient just back from chest x-ray: Initial read appears to have worsening of interstitial lung disease, his BNP is 767 slightly higher than previous
Holding off on administering diuretics as during last admission with his cardiac cath he was found to not be fluid overloaded so they discontinued any diuresis.
In to re evaluate pt. he blew his nose and forgot to put O2 back on, Pulse ox 79%, replaced the O2 cannula and immediately went back up to 93%
Hospitalist notified of admission
Chronic conditions affecting care:
Interstitial lung disease.
Chronic conditions affecting care: Arrhythmia (Afib)
<Therese Khalil MINE EQUIPMENT DESIGN ENGINEER - Last Filed: 09/18/23 06:58>
*EKG
EKG Intrepretation Date: 09/17/23
Interpretation: abnormal
Comparison EKG: changes noted (PVCs now present)
Rate: normal
Rhythm: sinus and PVC's
[place]: left axis deviation
Interval: first degree heart block
QRS Pattern: normal QRS
Ischemia: no ischemia
<Robert Fleming DO - Last Filed: 09/17/23 15:55>
*Critical Care Note
Total Time (30-74mins, 75-104mins- exclusive of procedures): 15
ED Attending Note
<Therese Khalil MINE EQUIPMENT DESIGN ENGINEER - Last Filed: 09/18/23 06:58>
-
Portions of this chart may have been created with voice recognition software.� Occasional wrong word or��sound alike� substitutions may have occurred due to the inherent limitations of voice recognition software.
<Robert Fleming, DO - Last Filed: 09/17/23 15:55>
ED Attending Note
Patient seen and examined by attending physician: Yes
I performed the substantive portion of visit, reviewed & personally made and approve the management plan that is documented in note by myself or RANJANA.: Yes
ED Attending Note:
Seen with MINE EQUIPMENT DESIGN ENGINEER agree with assessment and plan acute on chronic shortness of breath and weight gain recently diagnosed with interstitial lung disease
Discharge Plan
Departure
Patient Disposition: Admit
Date of Disposition: 09/17/23
Time of Disposition: :24
Presentation/result/management discussed w/ accepting MD/DO: Hospitalist
Condition: Fair
Discharge Problem:
Acute respiratory insufficiency
Interventions
Interventions:
*Risk Screen - Suicide Last Done: 09/17/23 09:32
*General Assessment Last Done: 09/17/23 09:32
*Neglect/Abuse Screening Last Done: 09/17/23 09:32
ED- Fall Risk Assessment Last Done: 09/17/23 09:46
*ED COVID-19 Vaccine History Last Done: 09/17/23 09:44
*Nursing Disposition Last Done: 09/17/23 17:54
ED- Cardiac Assessment Last Done: 09/17/23 09:46
ED- Pulmonary Assessment Last Done: 09/17/23 09:46
Discharge Date and Time
Discharge Date/Time: 09/17/23 17:54
[2023-09-17 10:01] LABS: % Eosinophils 2.9 % (0-6); % Immature Granulocytes 0.2 % (0-0.5); % Lymphocytes 16.6 % (20.5-51.1); % Monocytes 10.3 % (1.7-9.3); Absolute Basophils 0.1 10^3/uL (0-0.2); Absolute Eosinophils 0.2 10^3/uL (0-0.7); Absolute Lymphocytes 1.4 10^3/uL (1.2-3.4); Absolute Monocytes 0.9 10^3/uL (0.1-0.6); Absolute Neutrophils 5.7 10^3/uL (1.4-6.5); Hematocrit 39.7 % (39.0-52.0); Hemoglobin 13.5 g/dL (13.0-18.0); Mean Corpuscular Hgb 30.9 pg (27.0-31.0); Mean Corpuscular Volume 90.8 fL (80.0-94.0); Mean Platelet Volume 9.9 fL (7.4-10.4); Nucleated Red Blood Cells % 0 % (-); Platelet Count 255 10^3/uL (130-400); Red Blood Cell Count 4.37 10^6/uL (4.70-6.10); Red Cell Dist. Width 13.2 % (11.5-14.5); White Blood Cell Count 8.3 10^3/uL (4.8-10.8)
[2023-09-17 10:16] LABS: ALT (SGPT) 15 U/L (0-50); AST (SGOT) 36 U/L (17-59); Albumin 3.3 g/dl (3.5-5.0); Alkaline Phosphatase 86 U/L (38-126); Blood Urea Nitrogen 35 mg/dl (9-20); Calcium 9.3 mg/dl (8.4-10.2); Carbon Dioxide 28 mmol/L (22-30); Chloride 104 mmol/L (98-107); Glucose 132 mg/dl (70-99); Potassium 4.3 mmol/L (3.5-5.1); Sodium 136 mmol/L (135-145); Total Bilirubin 1.1 mg/dl (0.2-1.3); Total Protein 6.8 g/dl (6.3-8.2); eGFR 33.93
[2023-09-17 10:28] LABS: NT-proBNP 767 pg/ml; Troponin I 0.024 ng/ml
--- NOTE | 2023-09-17 13:37 | HPS.HSE ---
Addendum entered and electronically signed by Joseline Warren MD 09/17/23 16:11:
I personally performed a history and physical exam of the patient and discussed management with the resident. I reviewed the resident's note and agree with the documented findings and plan of care HPI/CC except difference in documentation.
88-year-old man Was recently admitted here with dyspnea on exertion. Initially there was concern for acute heart failure he was started on Lasix patient underwent right heart catheterization which showed wedge pressure of 12 mmHg. This ruled out
volume overload and heart failure. Diuretics were discontinued. Pulmonary was consulted. CT of the chest showed interstitial lung disease. This was felt to be secondary to amiodarone toxicity versus other types of pneumonitis. Amiodarone was
discontinued. He remained hypoxic therefore home oxygen was arranged. Patient is on 3 L of oxygen. Patient stated that his felt he was very dehydrated yesterday and he drank more fluids than normal. His weight went up by 6 pounds today and
he called cardiology office who recommended that he come to the hospital. Patient also has a history of nephrectomy for malignancy which was in 2022. His creatinine usually runs around 2. He was diagnosed with CKD stage IIIb also.
On examination patient is able to talk in full sentences
Cardiovascular system S1-S2 appreciated
Systolic murmur at right heart border
Chest fine rales bilaterally
No pedal edema
Neuro exam is nonfocal
# Acute respiratory failure
Chronic respiratory failure recently started on 3 L of oxygen as outpatient
Requiring 6 L now
Will give 1 dose of Lasix now
Follow creatinine
Sputum culture if possible
No fever or any systemic signs of infection
He is a lifelong non-smoker
Check Covid and sputum Cx also
Cardiology and pulmonary evaluation
# Acute on chronic heart failure with preserved ejection fraction is also possible with weight gain of 6 pounds overnight and worsening hypoxia
Echo 6 2992-normal LV size and systolic function. Ejection fraction 60 to 65%. Mild concentric LVH. Stage III diastolic dysfunction suggesting restrictive filling pattern and increased filling pressure. Dilated RV with normal systolic function.
Mild to moderate MR. Well-seated aortic valve. Moderate TR. Estimated pulmonary artery pressure 57 mmHg
1 dose of Lasix and follow troponin to rule out ischemia
# Paroxysmal atrial fibrillation-continue Eliquis. Patient is not on rate controlling agents as outpatient
History of ablations and cardioversion
# History of aortic valve replacement 2007
# Interstitial lung disease
? Needs lung biopsy
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
Amiodarone was discontinued recently
Patient was on amiodarone from January 2022 till August 2023.
Reported shortness of breath in 2021 was felt to be secondary to long-haul COVID
# Coronary artery calcifications
# Hyperlipidemia-continue simvastatin
# SHAILESH calcified 6.3 mm nodule
# Prostate disease-history of prostatectomy-continue finasteride
# CKD stage IIIb
# History of malignant neoplasm of the bladder with TURBT
# Unilateral kidney
History of cancer with robotic left nephroureterectomy September 2022
# History of nephrolithiasis
# Insomnia-continue Ambien
# DVT prophylaxis-continue Eliquis
# Full code
Original Note:
Family Physician
<Christy Perez MD, Resident - Last Filed: 09/17/23 16:01>
-
Family Physician: Brant Kruse
Chief Complaint
<Christy Perez MD, Resident - Last Filed: 09/17/23 16:01>
-
Acute weight gain
History of Present Illness
88 yr old male with hx of interstitial lung disease, CKD stage IIIb, Afib on Eliquis, HFpEF, bladder cancer, BPH, who was sent to the ED by his credit cashier's office after he reported a 6lb weight gain in one day. He reports a chronic cough for
about 1.5 years, worsening over the past 3 weeks. Worsening shortness of breath with minimal activities such as brushing teeth and navigating short distances in his home. He follows a low-sodium diet, and admits to increased water intake
yesterday, although it is unlikely that he exceeded his fluid restriction of 60oz per patient's recollection. He was hypoxemic (SPO2 88% on 3L o2 nasal cannula) and tachypneic on arrival. He reports cough with occasional white sputum production,
generalized fatigue, and poor appetite. Denies recent illness headache, dizziness or fever.
Of note, he was recently admitted to for acute hypoxic respiratory failure, where he was found to have interstitial lung disease likely secondary to amiodarone toxicity. At his previous admission, he was initially started on IV diuuresis which
was discontinued after Cardiac catheterization revealed PCWP 12. Amiodarone was discontinued and Eliquis dose was halved to 2.5 mg p.o. twice daily, and he was discharged on 3 L O2 nasal cannula. He was also noted to have an elevated creatinine of
2.2 on previous admission with a discharge creatinine of 2.0. JUAN on CKD 3B with one kidney (status post left nephrectomy).
Medical History
<Christy Perez MD, Resident - Last Filed: 09/17/23 16:01>
Past Medical History
Past Medical History: Reports Arrhythmia (Paroxysmal A-fib), Cancer (bladder), CHF (HFpEF), Hypercholesterolemia, Renal Failure (CKD III) and Valvular Disease (Interstitial lung disease, kidney stones, BPH,)
Past Surgical History: Reports Cardiac (Aortic valve replacement, 2 ablations) and Urological (Cystoscopy, left nephrectomy)
Social History
Tobacco: Non-smoker
Alcohol: Other (Rare drinker)
Drug: None
Personal:
Living: With Family
Employment: Retired
Family History
Family History: Not pertinent
Allergies / Home Medications
Allergies reflects when Allergies were last updated in [facility].
Home Medications with original date entered in [facility]
Allergy/Medication List:
Allergies
Allergy/AdvReac Type Severity Reaction Status Date / Time
No Known Allergies Allergy Verified 09/17/23 09:31
Home Medications
finasteride 5 mg tablet 5 mg PO HS prostate 05/25/10
simvastatin 10 mg tablet 10 mg PO HS High cholesterol 09/04/19
zolpidem 5 mg tablet 2.5 mg PO HSPRN PRN sleep 09/12/22
apixaban 5 mg tablet (Eliquis) 2.5 mg PO BID 09/17/23
Review of Systems
<Christy Perez MD, Resident - Last Filed: 09/17/23 16:01>
-
History Source: Patient
Constitutional: Reports Fatigue and Other (Poor appetite); Denies Fever, Night Sweats or Chills
Respiratory: Reports Cough, Trouble Breathing (With exertion) and Other (Sleeps with multiple pillows/elevated head of bed); Denies Hemoptysis
Cardiac: Denies Chest Pain, Diaphoresis, Palpitations or Syncope
Abdomen/GI: Reports Constipated and Anorexia; Denies Abdominal Pain, Diarrhea, Bloody Stools or Black Stools
: Denies Dysuria, Difficulty Voiding or Bleeding
Neurological: Denies Dizzy or Headache
Psych: Reports Calm
Physical Exam
<Christy Perez MD, Resident - Last Filed: 09/17/23 16:01>
Vital Signs
Vital Signs
Temp Pulse Resp BP Pulse Ox
98.1 F 81 18 112/81 95
09/17/23 09:32 09/17/23 12:50 09/17/23 12:50 09/17/23 12:50 09/17/23 12:00
Physical Exam
General: Well Developed, No Apparent Distress, Comfortable and Conversant; No Respiratory Distress or Fever
HEENT: Anicteric and Moist mucous membranes
Respiratory: Clear and Crackles (Coarse crackles right lower lobe, fine crackles in left lower lobe + right middle lobe)
Cardiac: S1/S2, Regular Rhythm, Murmur (Loud systolic murmur in the left second intercostal space) and JVD; No Peripheral Edema, Calf Tenderness or Jennifer's Sign
GI: Soft, Non Tender, Non Distended and Normal Bowel Sounds; No Organomegaly
Musculoskeletal: No Clubbing, No Cyanosis and No Edema
Skin: Warm and Dry; No Rash, Jaundice, Ulcers or Lesions
Neuro: Awake, Alert and Oriented
Psych: Calm
Laboratory Results
<Christy Perez MD, Resident - Last Filed: 09/17/23 16:01>
-
09/17/23 09:43
09/17/23 09:43
Laboratory Results
Total Bilirubin 1.1 mg/dl (0.2-1.3) 09/17/23 09:43
AST 36 U/L (17-59) 09/17/23 09:43
ALT 15 U/L (0-50) 09/17/23 09:43
Alkaline Phosphatase 86 U/L (38-126) 09/17/23 09:43
Troponin I 0.024 ng/ml 09/17/23 09:43
Impression/Plan
<Christy Perez MD, Resident - Last Filed: 09/17/23 16:01>
-
IMPRESSION: 88 yr old male with hx of interstitial lung disease, CKD stage IIIb, Afib on Eliquis, HFpEF, bladder cancer, BPH, who was sent to the ED by his credit cashier office after he reported a 6lb weight gain in one day.
Acute hypoxemic respiratory failure:
CXR 09/16: Patchy foci of interstitial and alveolar opacity bilaterally, most pronounced within the mid and lower lung zones on each side. No significant change compared to prior chest x-ray. Differential diagnosis includes multifocal pneumonia,
ARDS, and atypical pulmonary edema
Chest CT 09/11 Widespread prominence of the pulmonary interstitium, particularly peripherally and new Widespread areas of ground glass opacity in the lungs bilaterally in comparison to relative remote prior Chest CT. Some of several differential
diagnostic possibilities include atypical pneumonitis (UIP/DIP), sarcoidosis, alveolar proteinosis, eosinophilic pneumonia and lipoid pneumonia. Mild mediastinal lymphadenopathy. Cardiomegaly and coronary artery calcifications.
Likely secondary to HFpEF, infectious process, vs chronic interstitial lung disease flare
92% on 6L o2 nasal cannula
- Admit for observation
- Sputum Cx, Covid test,
- Wean O2 as tolerated
Heart Failure with preserved Ejection Fraction:
- Echo 09/04: Normal left ventricular size and systolic function. No regional wall motion abnormalities are seen. LV ejection fraction is 60-65%. Mild concentric left ventricular hypertrophy. Stage III diastolic dysfunction suggestive of restrictive
filling pattern and increased filling pressures.
- IV lasix 40mg once
- Monitor kidney function
- Iand Os
- Daily weights
Chronic Kidney Disease:
Stage IIIb. Status post L nephrectomy
- Cr 1.9. Monitor
- Avoid nephrotoxic agents
Bladder cancer:
- Known to Dr. Wilburn, Urology
- Scheduled for surgical procedure this month
Hypercholesterolemia:
- Continue Statin
Paroxysmal A-fib:
-Continue Eliquis
Benign prostatic hyperplasia:
-Continue finasteride
Constipation:
-Bowel regimen
DVT ppx: Eliquis
Code Status: Full Code
PLAN:
<Joseline Warren MD - Last Filed: 09/17/23 16:09>
-
IMPRESSION: 88 yr old male with hx of interstitial lung disease, CKD stage IIIb, Afib on Eliquis, HFpEF, bladder cancer, BPH, who was sent to the ED by his credit cashier office after he reported a 6lb weight gain in one day.
Acute hypoxemic respiratory failure:
CXR 09/16: Patchy foci of interstitial and alveolar opacity bilaterally, most pronounced within the mid and lower lung zones on each side. No significant change compared to prior chest x-ray. Differential diagnosis includes multifocal pneumonia,
ARDS, and atypical pulmonary edema
Chest CT 09/11 Widespread prominence of the pulmonary interstitium, particularly peripherally and new Widespread areas of ground glass opacity in the lungs bilaterally in comparison to relative remote prior Chest CT. Some of several differential
diagnostic possibilities include atypical pneumonitis (UIP/DIP), sarcoidosis, alveolar proteinosis, eosinophilic pneumonia and lipoid pneumonia. Mild mediastinal lymphadenopathy. Cardiomegaly and coronary artery calcifications.
Likely secondary to HFpEF, infectious process, vs chronic interstitial lung disease flare
92% on 6L o2 nasal cannula
- Admit for observation
- Sputum Cx, Covid test,
- Wean O2 as tolerated
Heart Failure with preserved Ejection Fraction: Acute on Chronic
- Echo 09/04: Normal left ventricular size and systolic function. No regional wall motion abnormalities are seen. LV ejection fraction is 60-65%. Mild concentric left ventricular hypertrophy. Stage III diastolic dysfunction suggestive of restrictive
filling pattern and increased filling pressures.
- IV lasix 40mg once and follow , check creatinine in am.
- Monitor kidney function
- I and Os
- Daily weights
-Troponin to rule out ischemia
Chronic Kidney Disease:
Stage IIIb. Status post L nephrectomy
- Cr 1.9. Monitor
- Avoid nephrotoxic agents
Bladder cancer:
- Known to Dr. Wilburn, Urology
- Scheduled for surgical procedure this month
Hypercholesterolemia:
- Continue Statin
Paroxysmal A-fib:
-Continue Eliquis
Benign prostatic hyperplasia:
-Continue finasteride
Constipation:
-Bowel regimen
DVT ppx: Eliquis
Code Status: Full Code
--- NOTE | 2023-09-17 16:28 | CON.CAR ---
Addendum entered and electronically signed by Nhan Vazquez DO 09/17/23 17:15:
I saw and examined the patient.
The [employer] Operator's note was reviewed and I agree with the note.
Comment:
Plan:
Pt does not appear to be significantly volume overloaded.
Pt has a new scale at home since his last d/c.
Recent echo and RHC reviewed from d/c last week.
Monitor for outpt after lasix given by primary service.
Last admit pt did not have a significant response to diuretic therapy.
Would consider pulm eval and further tx of ILD
Wean O2 as able.
Remains in sinus rhythm with first-degree AV block.hx PAFib. Amiodarone stopped during recent hospitalization due to concern for possible amiodarone toxicity.
Continue Eliquis 2.5 mg twice daily for anticoagulation (age, creatinine).
Original Note:
Consultation
Consultation Request
Date/Time Consultation Requested: 09/17/2023
Date/Time Consultation Performed: 09/17/2023
Requesting Provider: Dr. Jalloh
Performing Provider: Dr. Vazquez
Reason for Consultation: Hypoxia
Medical History
-
History of Present Illness:
HPI: Omari is an 88-year-old male with past medical history of interstitial lung disease, paroxysmal atrial fibrillation, atrial flutter, bladder cancer, chronic renal insufficiency, hyperlipidemia, BPH, and aortic valve replacement. He
presented to ER for evaluation of worsening shortness of breath. Over the weekend, his pulse ox dipped into the 80s despite home oxygen. He also had reported weight gain and was recommended to come to the ER for further evaluation. On arrival
to the emergency room, he was hypoxic and was placed on 6 L nasal cannula. Workup in the emergency room revealed evidence of worsening interstitial lung disease. He had right heart catheterization during recent hospitalization on 08/22/2023 which
showed compensated right and left ventricular filling pressures with wedge of 12. Dry weight felt to be around 185 pounds. Weight in ER reportedly 197 pounds, however unclear if this weight is accurate as it was on stretcher scale. Given a single
dose of IV Lasix in ER. Does not appear volume overloaded. Creatinine stable at 1.9. His proBNP is also stable at 767. Cardiology consulted for evaluation given worsening hypoxia. Pulmonology also consulted given concern for worsening
interstitial lung disease.
PMH:
Newly diagnosed interstitial lung disease by CT 09/11/23
Paroxysmal atrial fibrillation
s/p PVI 10/08/2019
s/p PVI, posterior wall ablation, mitral annular flutter ablation 11/17/2020
s/p posterior L atrial wall ablation, right atrial tachycardia ablation 06/30/2021
Failed sotalol
Chronic amiodarone therapy from 01/2022 until 09/12/23
Paroxysmal atypical atrial flutter
Paroxysmal atrial tachycardia
Chronic anticoagulation with Eliquis, no recent interruption
Bladder cancer s/p L robotic nephroureterectomy 09/20/2022, multiple TURBTs with new bladder tumors
Multiple cystoscopies.
h/o nephrolithiasis with stone removal and stent placement
Chronic renal insufficiency
h/o aortic valve replacement 2007
HLD
BPH
Past Medical History
Past Medical History: Other (In HPI)
Past Surgical History: Cardiac (aortic valve replacement 2007, PVI 2019, PVI 2020, Ablation 2021,), Urological and Other (Robotic partial prostatectomy 02/2020, bilateral robotic inguinal hernia repair 04/2020)
Social History
Tobacco: Non-Smoker
Alcohol: Occasional
Personal:
Living: With Family
Employment: Retired
Family History
Family History: Reviewed & Not Pertinent
Allergies / Home Medications
Allergy/AdvReac Type Severity Reaction Status Date / Time
No Known Allergies Allergy Verified 09/17/23 09:31
�Medication �Instructions �Recorded �Confirmed �Type
finasteride 5 mg tablet 5 mg PO HS prostate 05/25/10 09/17/23 History
simvastatin 10 mg tablet 10 mg PO HS High cholesterol 09/04/19 09/17/23 History
zolpidem 5 mg tablet 2.5 mg PO HSPRN PRN sleep 09/12/22 09/17/23 History
apixaban 5 mg tablet (Eliquis) 2.5 mg PO BID 09/17/23 09/17/23 History
Review of Systems
-
History Source: Patient
All other systems: Negative unless noted
Physical Exam
Vital Signs
Temp Pulse Resp BP Pulse Ox
98.1 F 86 18 120/74 95
09/17/23 09:32 09/17/23 14:22 09/17/23 14:22 09/17/23 14:22 09/17/23 12:00
GEN: AAO x3
HEENT: MMM
LUNGS: Wearing oxygen at 6 L NC. No audible wheeze
CV: Reg, 1/6 syst murmur
ABD: ND, NT, soft, +BS
EXT: No edema B/L LE
NEURO: Gross non-focal
SKIN: Warm, dry, no rash
Lab Results
09/17/23 09:43
09/17/23 09:43
Troponin I 0.024 ng/ml 09/17/23 09:43
Gvj-F-Ivklvdriaiw Pept 767 pg/ml 09/17/23 09:43
Impression / Plan
-
PCP: Dr. Brant Kruse
Business Office Technician: Dr. Tomi Ring
Impression:
Acute on chronic respiratory failure
Newly diagnosed interstitial lung disease by CT 09/11/23
Recent hospitalization at 09/08/2023 to 09/12/2023 for hypoxia and newly diagnosed ILD
Paroxysmal atrial fibrillation
s/p PVI 10/08/2019
s/p PVI, posterior wall ablation, mitral annular flutter ablation 11/17/2020
s/p posterior L atrial wall ablation, right atrial tachycardia ablation 06/30/2021
Failed sotalol
Chronic amiodarone therapy from 01/2022 until 09/12/23
Paroxysmal atypical atrial flutter
Paroxysmal atrial tachycardia
Chronic anticoagulation with Eliquis, no recent interruption
Bladder cancer s/p L robotic nephroureterectomy 09/20/2022, multiple TURBTs with new bladder tumors
Multiple cystoscopies
h/o nephrolithiasis with stone removal and stent placement
Chronic renal insufficiency
h/o aortic valve replacement 2007
HLD
BPH
RHC 09/11/2023: Hemodynamics (mmHg): RA (m) : 8. RV (s/d,m) : 43/27, 7. PA (s/d, m) : 44/17, 26. PCWP (m) : 12. Cardiac Output : 4.36 L/min and Cardiac Index : 2.07 L/min/m-2
Lexiscan stress test @ [facility] 06/30/2008: No evidence of myocardial ischemia or scar. EF 58%
Echo 09/05/2023: Normal left ventricular size and systolic function with no regional wall motion abnormality and EF estimated 60-65%. Mild LVH. Grade 3 diastolic dysfunction with increased LV filling pressures. Dilated right ventricle with normal
RV systolic function. Severely dilated atria. Mild to moderate MR. Well-seated number 23 mm stentless freestyle aortic valve with peak/mean gradients 10/5 mmHg. Moderate TR. Estimated pulmonary artery pressure 57 mmHg
Plan:
-Presented with worsening hypoxia. proBNP stable at 767. Chest x-ray without significant change compared to prior, with patchy foci of interstitial and alveolar opacities bilaterally.
-Suspect primary source of worsening hypoxia is worsening interstitial lung disease. Pulmonology consulted. TT with Hospitalist and resident team and they are going to order Decadron IV.
-Weight reportedly up 5 pounds overnight. He reports getting a new digital scale from the [employer] and learning how to use it. No bloating or edema. Given IV Lasix 40mg x1 in ER. Would hold on further diuretics at this time as he does not appear volume
overloaded.
-During recent hospitalization, had RHC with PCWP of 12 which correlated with weight of 187 pounds. Recheck standing scale weight.
-EKG reviewed by me and shows sinus rhythm with first-degree AV block.
-History of paroxysmal atrial fibrillation noted. Amiodarone stopped during recent hospitalization due to concern for amiodarone toxicity. HR stable.
-Continue Eliquis 2.5 mg twice daily for anticoagulation (age, creatinine).
-Echo 09/05/2023 with preserved EF. No need to repeat this admission.
-On 6 L nasal cannula. Wean as able.
Data Reviewed
-
EKG: Tracing Personally Visualized and interpreted
Radiology: Report Reviewed by me
Labs: Labs Reviewed by me
Old Records: Reviewed
[2023-09-17 17:04] LABS: COVID-19 Antigen Negative (Negative)
[2023-09-17] MEDS: LASIX 40 MG IV (17:13)
[2023-09-17 17:55] LABS: Troponin I 0.026 ng/ml
[2023-09-17] MEDS: DECADRON 4 MG IV (18:10)
--- NOTE | 2023-09-17 19:05 | PTCARENOTE ---
Received pt from ED on 6L via N/C. At time POX was 88% on 6L. Pt was placed into his bed with HOB elevated . After approximately 10 minutes patient's POX came up to 91-93% on 6L . MD was notified. Pt was oriented to unit. Plan of care is ongoing.
[2023-09-17] MEDS: ELIQUIS 2.5 MG PO (19:45)
[2023-09-17] MEDS: LIPITOR 10 MG PO (21:15)
[2023-09-17] MEDS: PROSCAR 5 MG PO (21:16)
[2023-09-17 22:50] LABS: Troponin I 0.025 ng/ml
[2023-09-18] MEDS: DECADRON 4 MG IV ×3 (02:10→17:34)
[2023-09-18 03:25] VITALS: BP 104/65
[2023-09-18 06:00] VITALS: BMI 23.5
--- NOTE | 2023-09-18 07:17 | W.PN.HOSP.TC ---
Addendum entered and electronically signed by Joseline Warren MD 09/18/23 14:48:
I personally performed a history and physical exam of the patient and discussed management with the resident. I reviewed the resident's note and agree with the documented findings and plan of care HPI/CC except for change in documentation.
CVS: S1-S2 normal
Chest:few rales
Abdomen: Soft, NT / Bowel sounds present
Extremities: No edema, normal pulses
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
# Acute respiratory failure
Chronic respiratory failure recently started on 3 L of oxygen as outpatient
Requiring 6 L now
Will give 1 dose of Lasix now
Follow creatinine
Sputum culture if possible
No fever or any systemic signs of infection
He is a lifelong non-smoker
Check Covid and sputum Cx also
Cardiology and pulmonary evaluation
# Acute on chronic hypoxic respiratory failure
# Acute on chronic heart failure with preserved ejection fraction is also possible with weight gain of 6 pounds overnight and worsening hypoxia
Echo 9023-normal LV size and systolic function. Ejection fraction 60 to 65%. Mild concentric LVH. Stage III diastolic dysfunction suggesting restrictive filling pattern and increased filling pressure. Dilated RV with normal systolic function.
Mild to moderate MR. Well-seated aortic valve. Moderate TR. Estimated pulmonary artery pressure 57 mmHg
1 dose of Lasix 09/17/2023-seems to be euvolemic
Hold further Lasix
# Interstitial lung disease
Bronch planned today
? Needs lung biopsy
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
Amiodarone was discontinued recently
Patient was on amiodarone from January 2022 till August 2023.
Reported shortness of breath in 2021 was felt to be secondary to long-haul COVID
Decadron started 09/17/23- Continue
# Paroxysmal atrial fibrillation-continue Eliquis. Patient is not on rate controlling agents as outpatient
History of ablations and cardioversion
# History of aortic valve replacement 2007
# Coronary artery calcifications
# Hyperlipidemia-continue simvastatin
# SHAILESH calcified 6.3 mm nodule
# Prostate disease-history of prostatectomy-continue finasteride
# CKD stage IIIb
# History of malignant neoplasm of the bladder with TURBT
# Unilateral kidney
History of cancer with robotic left nephroureterectomy September 2022
# History of nephrolithiasis
# Insomnia-continue Ambien
# DVT prophylaxis-continue Eliquis
# Full code
D/W , Son and DIL at bed side
D/W Pulm
Original Note:
Today's Communication/Plan
-
Continue steroids
Assessment / Plan
Assessment / Plan
# Acute respiratory failure
Chronic respiratory failure recently started on 3 L of home oxygen
Requiring 6 L now
Diuresing s/p one dose of IV lasix. Around baseline weight today 83.12kg
Creatinine: 1.8
Sputum culture when possible
No fever or any systemic signs of infection
He is a lifelong non-smoker
Covid and influenza negative
Appreciate Cardiology and Pulm input
# Acute on chronic heart failure with preserved ejection fraction
Echo 09/04: Normal left ventricular size and systolic function. No regional wall motion abnormalities are seen. LV ejection fraction is 60-65%. Mild concentric left ventricular hypertrophy. Stage III diastolic dysfunction suggestive of restrictive
filling pattern and increased filling pressures.
Overnight 6 pound weight gain at presentation
Adequately diuresed today. Discontinue Lasix
Currently at dry weight
# Paroxysmal atrial fibrillation
Patient's failed multiple antiarrhythmics, status post 2 ablations and cardioversion
Not on any rate controlling agent as outpatient
Remains in sinus rhythm
-Continue Eliquis
Interstitial lung disease:
Diagnosed on recent admission. 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 Patient was on amiodarone from January 2022 until August 2023. Patient reports chronic cough beginning shortly after amiodarone was initiated. Amiodarone discontinued recently
-Appreciate pulmonary input
-To have bronchoscopy
-Continue Decadron
Chronic Kidney Disease:
Stage IIIb. Status post L nephrectomy.
- Cr 1.8 Monitor
- Avoid nephrotoxic agents
Bladder cancer:
- Known to Dr. Wilburn, Urology
- Scheduled for surgical procedure this month
Hyperlipidemia:
- Continue Statin
Paroxysmal A-fib:
-Continue Eliquis
Benign prostatic hyperplasia:
-History of prostatectomy
-Continue finasteride
Constipation:
-Bowel regimen
DVT prophylaxis: Eliquis
CODE STATUS: Full code
Anticipated Discharge: Within 24 hours
Subjective/Interval History
-
Date of Service: September 18, 2023
No acute events overnight. Mild symptom improvement per patient
Objective Data
-
Labs:
Laboratory Results
09/18/23
06:00
WBC Pending
Hgb Pending
Hct Pending
Plt Count Pending
Sodium Pending
Potassium Pending
Chloride Pending
Carbon Dioxide Pending
BUN Pending
Creatinine Pending
Glucose Pending
Calcium Pending
Vital Signs:
Vital Signs
Temp Pulse Resp BP Pulse Ox
97.5 F 77 18 104/65 92
09/18/23 03:25 09/18/23 03:25 09/18/23 03:25 09/18/23 03:25 09/18/23 03:25
I&O
09/17/23 09/18/23 09/19/23
06:59 06:59 06:59
Intake Total 240 / 240
Output Total 2049
Balance -1809 / -1809
Review of Systems
-
History Source: Patient
Constitutional: Denies Fever or No Appetite
Respiratory: Reports Cough and Trouble Breathing
Cardiac: Denies Chest Pain, Diaphoresis, Palpitations or Syncope
Abdomen/GI: Reports Constipated; Denies Abdominal Pain, Nausea, Vomiting or Diarrhea
Genitourinary: Reports No Symptoms
Musculoskeletal: Reports No Symptoms; Denies Joint Pain, Muscle Pain or Edema
Neuro: Denies Dizzy or Headache
Physical Exam
-
General: Well Developed, Well Nourished and Comfortable; Negative Respiratory Distress, Appears in Distress or Pain
HEENT: Normocephalic, Atraumatic, Moist Mucous Membranes and Oxygen (6L nasal cannula); Negative Anicteric
Respiratory: Crackles (Right lower lobe) and Non Labored Respirations; Negative Accessory Resp Muscle Use
Cardiac: Regular Rhythm, S1/S2 and Murmur (Systolic murmur, left second intercostal space)
GI: Soft, Nontender, Nondistended and Normal Bowel Sounds
Musculoskeletal: No Clubbing, No Cyanosis and No Edema
Skin: Warm and Dry; Negative Rash, Ulcers, Lesions or Jaundice
Neuro: Awake, Alert and Oriented
Psych: Calm
[2023-09-18 07:38] LABS: Hematocrit 39.3 % (39.0-52.0); Hemoglobin 13.3 g/dL (13.0-18.0); Mean Corp Hgb Conc. 33.8 g/dL (33.0-37.0); Mean Corpuscular Hgb 30.2 pg (27.0-31.0); Mean Corpuscular Volume 89.1 fL (80.0-94.0); Mean Platelet Volume 9.8 fL (7.4-10.4); Platelet Count 289 10^3/uL (130-400); Red Blood Cell Count 4.41 10^6/uL (4.70-6.10); Red Cell Dist. Width 12.9 % (11.5-14.5); White Blood Cell Count 6.4 10^3/uL (4.8-10.8)
[2023-09-18 08:00] VITALS: BP 121/82
[2023-09-18 08:32] LABS: Blood Urea Nitrogen 36 mg/dl (9-20); Calcium 9.4 mg/dl (8.4-10.2); Carbon Dioxide 27 mmol/L (22-30); Chloride 102 mmol/L (98-107); Estimated Creatinine Clearance 34 ml/min; Glucose 147 mg/dl (70-99); Potassium 4.9 mmol/L (3.5-5.1); Sodium 136 mmol/L (135-145); eGFR 36.21
--- NOTE | 2023-09-18 08:53 | VNURNOTE ---
Patient is current with [facility] since [facility]. Lives with spouse, already current with home 02. Will continue to follow hospital course, discharge plans.
[2023-09-18] MEDS: ELIQUIS 2.5 MG PO ×2 (09:29→19:45)
[2023-09-18] MEDS: SENOKOT 8.59999999999999964 MG PO (09:29)
--- NOTE | 2023-09-18 09:51 | W.PN.CARDCBS ---
Addendum entered and electronically signed by Nhan Vazquez DO 09/18/23 14:34:
I saw and examined the patient.
The Bad Cloth Checker's note was reviewed and I agree with the note.
Comment:
Plan:
Remains with dyspnea despite diuresis.
He appears euvolemic. His tried the new scale at home and saw errors in wt.
Recent echo and RHC reviewed with pt. RHC showed wedge of 12.
Last admit pt did not have a significant response to diuretic therapy.
Cont pulm eval and further tx of ILD. Cont steroids and pulm toilet.
Wean O2 as able.
Remains in sinus rhythm with first-degree AV block.
Hx PAFib. Amiodarone stopped during recent hospitalization due to concern for possible amiodarone toxicity.
Continue Eliquis 2.5 mg twice daily for anticoagulation (age, creatinine).
Reviewed with urology as he may need a urologic procedure. Stable from cardiac standpoint for urologic procedure.
Original Note:
Today's Communication / Plan
-
No symptomatic improvement overnight
Would not attempt to diurese further
Decadron ordered and Pulm to see
Remains in SR after amio stopped last admission
Impression / Plan
-
PCP: Dr. Brant Kruse
Metal Stud Framer: Dr. Tomi Ring
Impression:
Acute on chronic respiratory failure
Newly diagnosed interstitial lung disease by CT 09/11/23
Recent hospitalization at 09/08/2023 to 09/12/2023 for hypoxia and newly diagnosed ILD
Paroxysmal atrial fibrillation
s/p PVI 10/08/2019
s/p PVI, posterior wall ablation, mitral annular flutter ablation 11/17/2020
s/p posterior L atrial wall ablation, right atrial tachycardia ablation 06/30/2021
Failed sotalol
Chronic amiodarone therapy from 01/2022 until 09/12/23
Paroxysmal atypical atrial flutter
Paroxysmal atrial tachycardia
Chronic anticoagulation with Eliquis, no recent interruption
Bladder cancer s/p L robotic nephroureterectomy 09/20/2022, multiple TURBTs with new bladder tumors
Multiple cystoscopies
h/o nephrolithiasis with stone removal and stent placement
Chronic renal insufficiency
h/o aortic valve replacement 2007
HLD
BPH
RHC 09/11/2023: Hemodynamics (mmHg): RA (m) : 8. RV (s/d,m) : 43/27, 7. PA (s/d, m) : 44/17, 26. PCWP (m) : 12. Cardiac Output : 4.36 L/min and Cardiac Index : 2.07 L/min/m-2
Lexiscan stress test @ [facility] 06/30/2008: No evidence of myocardial ischemia or scar. EF 58%
Echo 09/05/2023: Normal left ventricular size and systolic function with no regional wall motion abnormality and EF estimated 60-65%. Mild LVH. Grade 3 diastolic dysfunction with increased LV filling pressures. Dilated right ventricle with normal
RV systolic function. Severely dilated atria. Mild to moderate MR. Well-seated number 23 mm stentless freestyle aortic valve with peak/mean gradients 10/5 mmHg. Moderate TR. Estimated pulmonary artery pressure 57 mmHg
Plan:
-Patient weighed 185 lbs on the day of d/c 09/12/23 and then weighed 187 lbs on readmission 09/17/23. Patient was given Lasix 40 mg IV x1 in the ER on 09/17/23 and weight is down to 183 lbs on 09/18/23. PCWP was 12 mmHg correlating with a weight of 187 lbs
by [facility] on 09/11/23.
-No symptomatic improvement with diuresis. Cre stable/improved at 1.8.
-Patient reports using a new digital scale at home provided by and that he thinks scale is malfunctioning, he only had weight gain on the new scale. He also reports that his weighed 105 lbs this AM which was high for her so she weighed
herself again a few minutes later and the scaled weighed her at 100 lbs.
-Ongoing concern for worsened hypoxia, but doubt that acute HF is the cause. Suspect underlying ILD.
-Decadron 4 mg IV q 8 hours ordered and Pulmonology to see patient.
-Amiodarone stopped last admission for suspected ILD. Patient remains in SR with h/o pAfib and previous PVI and CV. Amiodarone was started 01/2022, previously patient had been on sotalol, but was having frequent breakthroughs of Afib so transitioned
to amiodarone.
-Continue Eliquis 2.5 mg twice daily for anticoagulation (age, creatinine).
Progress Note - Metal Stud Framer
Subjective
Date of Service: September 18, 2023
He does not feel any better
Objective
Labs:
09/18/23 07:20
09/18/23 07:20
Labs
Hgb 13.3 g/dL (13.0-18.0) 09/18/23 07:20
Hct 39.3 % (39.0-52.0) 09/18/23 07:20
Plt Count 289 10^3/uL (130-400) 09/18/23 07:20
Sodium 136 mmol/L (135-145) 09/18/23 07:20
Potassium 4.9 mmol/L (3.5-5.1) 09/18/23 07:20
BUN 36 mg/dl (9-20) H 09/18/23 07:20
Creatinine 1.8 mg/dL (0.7-1.3) H 09/18/23 07:20
Glucose 147 mg/dl (70-99) H 09/18/23 07:20
Troponins
09/17/23 09/17/23 09/17/23
09:43 16:33 17:15
Troponin I 0.024 Cancelled 0.026
09/17/23
22:16
Troponin I 0.025
Vital Signs and I&O:
Vital Signs
Temp Pulse Resp BP Pulse Ox
97.4 F 81 22 121/82 91
09/18/23 08:00 09/18/23 08:00 09/18/23 08:00 09/18/23 08:00 09/18/23 08:00
Vital Signs
Temp Pulse Resp BP Pulse Ox
97.4 F 81 22 121/82 91
09/18/23 08:00 09/18/23 08:00 09/18/23 08:00 09/18/23 08:00 09/18/23 08:00
Intake & Output
09/16/23 09/17/23 09/18/23 09/19/23
06:59 06:59 06:59 06:59
Intake Total 240 / 240
Output Total 2049 / 2049
Balance -1809 / -1809
Physical Exam
Physical Exam
GEN: AAO x3
HEENT: MMM
LUNGS: Wearing oxygen at 6 L NC. No audible wheeze
CV: SR on tele
ABD: ND, NT, soft, +BS
EXT: No edema B/L LE
NEURO: Gross non-focal
SKIN: Warm, dry, no rash
[2023-09-18 11:00] VITALS: BP 110/64
--- NOTE | 2023-09-18 11:07 | CON.PUL ---
Consultation
Consultation Request
Date/Time Consultation Requested: 09/17/2023 - 162
Date/Time Consultation Performed: 09/18/2023 - 919
Requesting Provider: Dr. Perez
Performing Provider: Dr. Faustin
Reason for Consultation: Hypoxia
Medical History
-
Chief Complaint: SOB +5 lb weight gain
History of Present Illness:
88-year-old male with a past medical history of biologic aortic valve replacement, history of A-fib/flutter on Eliquis previously on amiodarone, history of transitional cell carcinoma, BPH and hyperlipidemia who presents with worsening SOB and 5
pound weight gain. Patient recently hospitalized here at from 09/07ho presented with weakness, weight loss and ACUÑA, thought to initially be in heart failure which was ruled out via subsequent RHC with PCWP of 12 mmHg, mPAP 26mmHg
with CO/CI: 4.36/2.07. Subsequently CT chest performed on 09/12/2023 showing widespread GGO with broad differential including IIB and drug toxicities as patient was on amiodarone. Amiodarone was discontinued and he was discharged on 09/11 to home
with outpatient follow-up scheduled with our office. Patient was hemodynamically stable in triage however hypoxic to 76% on 4 L/min which improved to 95% on 6 L/min. He was afebrile to 98.1 �F. Labs showed proBNP of 767 (742 on 09/08/2023),
negative troponin of 0.024, and negative COVID-19 antigen, and negative flu A/B. CXR showed continued widespread bilateral pulmonary opacities without significant change compared to recent CXR on 09/12/2023. The patient was given Lasix 40 mg in the
ER plus Decadron and admitted to the service with pulmonary consulted for additional management/recommendations.
When I saw the patient he was in bed with multiple family members at bedside including son and daughter and . Patient currently on 6 L/min nasal cannula breathing comfortably although with exertion he is short of breath. Of note, when he was
sent home after last hospitalization on 09/12/2023, he was discharged on pulsed oxygen at setting #2. This clearly was on off as he became short of breath and pulse oximetry testing at home still showed SpO2 in the mid 80s despite them raising the
setting on their own. Normally the patient is a very active man, [place] and other [place], and the patient has a no limitations with his physical activity, and he is independent with his ADLs. He has no history of
connective tissue disease, rheumatological disorder, no difficulty swallowing, no joint swelling, redness, stiffness, no rashes and no night sweats. I answered all of the patient and the family's questions to their satisfaction.
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
PSHx: Robotic partial prostatectomy (February 2020), bilateral robotic inguinal hernia repair, diagnostic left ureteroscopy, robotic left nephro�ureterectomy (September 2022), atrial valve and aortic repair surgery (2007), multiple TURBTs, cardioversion
Past Medical History
Past Medical History: Other (Above as per HPI)
Past Surgical History: Other (Above as per HPI)
Social History
Tobacco: Non-smoker
Alcohol: None
Drug: None
Personal:
Living: With Family
Family History
Family History: Other (Father: Heart failure)
Allergies / Home Medications
Allergies
Allergy/AdvReac Type Severity Reaction Status Date / Time
No Known Allergies Allergy Verified 09/17/23 09:31
Home Medications
�Medication �Instructions �Recorded �Confirmed �Last Taken �Type
finasteride 5 mg tablet 5 mg PO HS prostate 05/25/10 09/17/23 09/16/23 History
simvastatin 10 mg tablet 10 mg PO HS High cholesterol 09/04/19 09/17/23 09/16/23 History
zolpidem 5 mg tablet 2.5 mg PO HSPRN PRN sleep 09/12/22 09/17/23 10 Days Ago History
~09/07/23
apixaban 5 mg tablet (Eliquis) 2.5 mg PO BID 09/17/23 09/17/23 09/17/23 History
Review of Systems
-
History Source: Patient
All other systems: Negative unless noted
Vitals / Labs / Diagnostic Testing
Vital Signs
Temp Pulse Resp BP Pulse Ox
97.4 F 81 22 121/82 91
09/18/23 08:00 09/18/23 08:00 09/18/23 08:00 09/18/23 08:00 09/18/23 08:00
Lab Data
09/18/23 07:20
09/18/23 07:20
Microbiology
09/17/23 17:15 Nasal Swab Influenza Types A & B (MIO) - Final
Negative for Influenza A & B, NAAT
Negative results must be combined with clinical observations
and patient history.
Nucleic Acid Amplification test (NAAT)performed on the
[employer] platform.
Diagnostic Testing:
Physical Exam
-
HEENT: Normocephalic and Anicteric
Cardiovascular: S1/S2, Regular Rhythm and Peripheral Edema (Negative)
Respiratory: Wheeze (Negative), Rales (Bilateral), Rhonchi (Negative) and Accessory Resp Muscle Use (Negative)
GI: Soft, Non Distended and Non Tender
Neurology: AO x 3 and Tremors (Negative)
Skin: Warm and Dry
General: Comfortable, Chills (Negative) and Sweats (Negative)
Assessment
-
Assessment: 88-year-old male with a past medical history of biologic aortic valve replacement, history of A-fib/flutter on Eliquis previously on amiodarone, history of transitional cell carcinoma, BPH and hyperlipidemia who presents with worsening
SOB and 5 pound weight gain. Patient recently hospitalized here at from 09/07ho presented with weakness, weight loss and ACUÑA, thought to initially be in heart failure which was ruled out via subsequent RHC with PCWP of 12 mmHg, mPAP
26mmHg with CO/CI: 4.36/2.07. Subsequently CT chest performed on 09/12/2023 showing widespread GGO with broad differential including IIB and drug toxicities as patient was on amiodarone. Amiodarone was discontinued and he was discharged on 09/11 to
home with outpatient follow-up scheduled with our office. Patient was hemodynamically stable in triage however hypoxic to 76% on 4 L/min which improved to 95% on 6 L/min. He was afebrile to 98.1 �F. Labs showed proBNP of 767 (742 on 09/08/2023),
negative troponin of 0.024, and negative COVID-19 antigen, and negative flu A/B. CXR showed continued widespread bilateral pulmonary opacities without significant change compared to recent CXR on 09/12/2023. The patient was given Lasix 40 mg in the
ER plus Decadron and admitted to the service with pulmonary consulted for additional management/recommendations.
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
Impression:
#Acute on chronic respiratory failure with hypoxia - likely due to drug-induced pulmonary toxicity from amiodarone vs idiopathic interstitial pneumonia versus granulomatous diffuse parenchymal lung disease
#Abnormal CT chest from 09/12/2023, showing subpleural reticular + patchy opacities with widespread GGO and mediastinal/hilar lymphadenopathy, basilar changes have worsened compared to CT A/P from 08/06/2023, and he had very faint reticular opacities
seen in the bases going back to January 2023; his CT chest from April 2021 showed no evidence of ILD at that time
#Paroxysmal A-fib s/p PVI (09/2019), ablation (11/2020) and on amiodarone since 01/2022 when he stopped sotalol
#Hx of severe s/p tissue AVR
#Chronic HFpEF with stage III diastolic dysfunction, mild-moderate MR, moderate TR, dilated RV with aortic valve peak/mean gradients of 10/5 mmHg, respectively (seen on TTE from 09/05/2023)
Plan:
- Based on medical records, his interstitial changes started somewhere between 05/08/2021 and 02/05/2023, and they have significantly worsened between July 2023 and this past month
- He started taking amiodarone in January 2022 with 200 mg BID x 1 month followed by 200mg daily after being transitioned off of sotalol
- His A-fib had been resolved after he had an ablation in Nov 2020 in addition to being on the amiodarone
- His differential for his SOB and hypoxia with abnormal CT chest is: drug-induced toxicity, RV REPAIRER, sarcoidosis, UIP/DIP and CEP; less likely AIP or NSIP
- Also given the likelihood of amiodarone toxicity, this can cause OP and/or eosinophilic pneumonia
- Recommend permanent discontinuation of amiodarone
- Recommend bronchoscopy with BAL and send for cell count differential, cultures and cytopathology
- Patient verbally consented for bronchoscopy today at bedside
- Continue systemic steroids - currently on Decadron 4 mg IV q8hr (equivalent to 80 mg prednisone); wean this as tolerated
- Because of the long half-life of amiodarone, he will need slow steroid taper and we have to be prepared for symptom recurrence with steroid tapering as well as continued respiratory symptoms and hypoxia despite drug discontinuation even in the
presence of systemic steroids
- Maintain SpO2 >90-94% with supplemental O2 as needed
- Incentive spirometer encouraged
- Replete electrolytes with K>4, Mg>2
- Maintain euglycemia with goal BG >100 and <180
- prn nebulized bronchodilators
- DVT ppx
Pulmonary service will continue to follow along.
Total time spent today was 75 minutes for this encounter. Time includes reviewing laboratory test/imaging results, reviewing pertinent medical records, obtaining and reviewing medical history, performing an appropriate exam, ordering medications,
tests and procedures. Time also includes documentation of this encounter, coordinating patient care and communicating with other healthcare professionals. Total time does not include separately billed tests performed on this date of service.
Data:
CXR 09-17-2023:
1. Patchy foci of interstitial and alveolar opacity bilaterally, most pronounced within the mid and lower lung zones on each side. No significant change compared to prior chest x-ray.
2. Differential diagnosis includes multifocal pneumonia, ARDS, and atypical pulmonary edema.
CT Chest w/o Contrast 09-12-2023:
Widespread prominence of the pulmonary interstitium, particularly peripherally and new Widespread areas of groundglass opacity in the lungs bilaterally in comparison to relative remote prior Chest CT. Some of several differential diagnostic
possibilities include atypical pneumonitis (UIP/DIP), sarcoidosis, alveolar proteinosis, eosinophilic pneumonia and lipoid pneumonia.
Mild mediastinal lymphadenopathy.
Cardiomegaly and coronary artery calcifications.
Right heart catheterization 09-11-2023:
Hemodynamics (mmHg):
RA (m) : 8
RV (s/d,m) : 43/27, 7
PA (s/d, m) : 44/17, 26
PCWP (m) : 12
Non Invasive BP: 125/85, 102
Cardiac Output : 4.36 L/min and Cardiac Index : 2.07 L/min/m-2
Systemic vascular resistance: 21.6 Wood units or 1725 [id number])
Pulmonary vascular resistance: 2.98 Wood units or 239 [id number])
CONCLUSION:
1. Compensated right and left ventricular filling pressures
TTE 09-05-2023:
Normal left ventricular size and systolic function. No regional wall motion
abnormalities are seen. LV ejection fraction is 60-65% by Cooney's method of
discs. Mild concentric left ventricular hypertrophy. Stage III diastolic
dysfunction suggestive of restrictive filling pattern and increased filling
pressures.
Dilated right ventricle with normal systolic function.
Severely dilated atria.
Mild to moderate mitral regurgitation.
Well-seated #23 mm stentless freestyle aortic valve with peak/mean gradients at
10/5 mmHg.
Moderate tricuspid regurgitation. Estimated pulmonary artery pressure of 57
mmHg assuming a right atrial pressure of 3 mmHg.
Compared to prior study dated 09/23/2019, there is no significant change, prior
aortic valve gradients were peak/mean 9/5 mmHg
[2023-09-18 12:12] LABS: Procalcitonin < 0.05 ng/ml (0.0-0.25)
[2023-09-18 15:00] VITALS: BP 104/67
[2023-09-18] MEDS: DUONEB 3 ML INH ×2 (15:15→19:54)
[2023-09-18 19:30] VITALS: BP 98/60
[2023-09-18] MEDS: SENOKOT PO (20:00)
[2023-09-18] MEDS: PROSCAR 5 MG PO (21:30)
[2023-09-18] MEDS: LIPITOR 10 MG PO (21:30)
[2023-09-18 23:32] VITALS: BP 98/63
[2023-09-19] VITALS (16 sets, daily range): BP systolic 93–111; BP diastolic 49–80; PULSE 89; O2SAT 94; BMI 23.7
[2023-09-19] MEDS: DECADRON 4 MG IV ×2 (01:51→17:39)
[2023-09-19] MEDS: DUONEB 3 ML INH ×4 (07:31→19:56)
--- NOTE | 2023-09-19 08:25 | W.PN.PUL3 ---
Addendum entered and electronically signed by Mamadou Faustin MD 09/19/23 19:29:
I discussed today's case with patient's urologist, Dr. 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 But I
will see Omari in the office on 10/09/2023, and then I will touch base with Dr. Wilburn at that time to discuss patient's candidacy for the OR.
Original Note:
Today's Communication / Plan
-
Bronchoscopy with BAL today
Permanent discontinuation of amiodarone
Maintain SpO2 >90-94%
Systemic steroids with slow taper as tolerated
Mucolytics
Assessment
-
Assessment: 88-year-old male with a past medical history of biologic aortic valve replacement, history of A-fib/flutter on Eliquis previously on amiodarone, history of transitional cell carcinoma, BPH and hyperlipidemia who presents with worsening
SOB and 5 pound weight gain. Patient recently hospitalized here at from 09/07ho presented with weakness, weight loss and ACUÑA, thought to initially be in heart failure which was ruled out via subsequent RHC with PCWP of 12 mmHg, mPAP
26mmHg with CO/CI: 4.36/2.07. Subsequently CT chest performed on 09/12/2023 showing widespread GGO with broad differential including IIB and drug toxicities as patient was on amiodarone. Amiodarone was discontinued and he was discharged on 09/11 to
home with outpatient follow-up scheduled with our office. Patient was hemodynamically stable in triage however hypoxic to 76% on 4 L/min which improved to 95% on 6 L/min. He was afebrile to 98.1 �F. Labs showed proBNP of 767 (742 on 09/08/2023),
negative troponin of 0.024, and negative COVID-19 antigen, and negative flu A/B. CXR showed continued widespread bilateral pulmonary opacities without significant change compared to recent CXR on 09/12/2023. The patient was given Lasix 40 mg in the
ER plus Decadron and admitted to the service with pulmonary consulted for additional management/recommendations.
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
Impression:
#Acute on chronic respiratory failure with hypoxia - likely due to drug-induced pulmonary toxicity from amiodarone vs idiopathic interstitial pneumonia versus granulomatous diffuse parenchymal lung disease
#Abnormal CT chest from 09/12/2023, showing subpleural reticular + patchy opacities with widespread GGO and mediastinal/hilar lymphadenopathy, basilar changes have worsened compared to CT A/P from 08/06/2023, and he had very faint reticular opacities
seen in the bases going back to January 2023; his CT chest from April 2021 showed no evidence of ILD at that time
#Paroxysmal A-fib s/p PVI (09/2019), ablation (11/2020) and on amiodarone since 01/2022 when he stopped sotalol
#Hx of severe s/p tissue AVR
#Chronic HFpEF with stage III diastolic dysfunction, mild-moderate MR, moderate TR, dilated RV with aortic valve peak/mean gradients of 10/5 mmHg, respectively (seen on TTE from 09/05/2023)
Plan:
- Based on medical records, his interstitial changes started somewhere between 05/08/2021 and 02/05/2023, and they have significantly worsened between July 2023 and this past month
- He started taking amiodarone in January 2022 with 200 mg BID x 1 month followed by 200mg daily after being transitioned off of sotalol
- His A-fib had been resolved after he had an ablation in Nov 2020 in addition to being on the amiodarone
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
- Also given the likelihood of amiodarone toxicity, this can cause OP and/or eosinophilic pneumonia
- Recommend permanent discontinuation of amiodarone
- He is NPO for bronchoscopy with BAL and send for cell count differential, cultures and cytopathology
- Continue systemic steroids - currently on Decadron 4 mg IV q8hr (equivalent to 80 mg prednisone); wean this as tolerated
- Because of the long half-life of amiodarone, he will need slow steroid taper and we have to be prepared for symptom recurrence with steroid tapering as well as continued respiratory symptoms and hypoxia despite drug discontinuation even in the
presence of systemic steroids
- Maintain SpO2 >90-94% with supplemental O2 as needed
- Incentive spirometer encouraged
- Replete electrolytes with K>4, Mg>2
- Maintain euglycemia with goal BG >100 and <180
- prn nebulized bronchodilators
- DVT ppx
Pulmonary service will continue to follow along.
Total time spent today was 50 minutes for this encounter. Time includes reviewing laboratory test/imaging results, reviewing pertinent medical records, obtaining and reviewing medical history, performing an appropriate exam, ordering medications,
tests and procedures. Time also includes documentation of this encounter, coordinating patient care and communicating with other healthcare professionals. Total time does not include separately billed tests performed on this date of service.
Data:
CXR 09-17-2023:
1. Patchy foci of interstitial and alveolar opacity bilaterally, most pronounced within the mid and lower lung zones on each side. No significant change compared to prior chest x-ray.
2. Differential diagnosis includes multifocal pneumonia, ARDS, and atypical pulmonary edema.
CT Chest w/o Contrast 09-12-2023:
Widespread prominence of the pulmonary interstitium, particularly peripherally and new Widespread areas of groundglass opacity in the lungs bilaterally in comparison to relative remote prior Chest CT. Some of several differential diagnostic
possibilities include atypical pneumonitis (UIP/DIP), sarcoidosis, alveolar proteinosis, eosinophilic pneumonia and lipoid pneumonia.
Mild mediastinal lymphadenopathy.
Cardiomegaly and coronary artery calcifications.
Right heart catheterization 09-11-2023:
Hemodynamics (mmHg):
RA (m) : 8
RV (s/d,m) : 43/27, 7
PA (s/d, m) : 44/17, 26
PCWP (m) : 12
Non Invasive BP: 125/85, 102
Cardiac Output : 4.36 L/min and Cardiac Index : 2.07 L/min/m-2
Systemic vascular resistance: 21.6 Wood units or 1725 [id number](-5)
Pulmonary vascular resistance: 2.98 Wood units or 239 [id number](-5)
CONCLUSION:
1. Compensated right and left ventricular filling pressures
TTE 09-05-2023:
Normal left ventricular size and systolic function. No regional wall motion
abnormalities are seen. LV ejection fraction is 60-65% by Cooney's method of
discs. Mild concentric left ventricular hypertrophy. Stage III diastolic
dysfunction suggestive of restrictive filling pattern and increased filling
pressures.
Dilated right ventricle with normal systolic function.
Severely dilated atria.
Mild to moderate mitral regurgitation.
Well-seated #23 mm stentless freestyle aortic valve with peak/mean gradients at
10/5 mmHg.
Moderate tricuspid regurgitation. Estimated pulmonary artery pressure of 57
mmHg assuming a right atrial pressure of 3 mmHg.
Compared to prior study dated 09/23/2019, there is no significant change, prior
aortic valve gradients were peak/mean 9/5 mmHg
Subjective Data
-
Date of Service:
Date of Service: September 19, 2023
Chief Complaint: Pulmonary Follow Up
Subjective:
Patient seen and evaluated this morning. He says he feels well today. On 6 L/min saturating 91%. No worsening SOB compared to yesterday. Denies chest pain, headache, abdominal pain, fevers chills.
Review of Systems
General: Other (Negative unless mentioned above)
Objective Data
Data Reviewed
Vital Signs / I&O / Oxygen:
Vital Signs
Temp Pulse Resp BP Pulse Ox
97.6 F 85 22 101/62 90
09/19/23 07:50 09/19/23 07:50 09/19/23 07:50 09/19/23 07:50 09/19/23 08:07
Intake and Output
09/18/23 09/19/23 09/20/23
06:59 06:59 06:59
Intake Total 240 / 240 1440 / 1440
Output Total 2049 250 / 250
Balance -1810 / -1810 1190 / 1190
SaO2 90
Nasal Cannula flow liters per 6
minute
Physical Exam
General: Respiratory Distress (Negative) and Comfortable
HEENT: Normocephalic and Anicteric
Cardiovascular: S1-S2, Regular Rhythm and Peripheral Edema (Negative)
Respiratory: Wheeze (Negative), Crackles (bilateral) and Rhonchi (Negative)
GI: Soft, Non Distended, Non Tender and Normal Bowel Sounds
Neurology: AO x 3 and Tremors (Negative)
Skin: Warm and Dry
Labs/Micro/Reports
Lab Data
09/19/23 07:58
Microbiology
09/17/23 17:15 Nasal Swab Influenza Types A & B (MIO) - Final
Negative for Influenza A & B, NAAT
Negative results must be combined with clinical observations
and patient history.
Nucleic Acid Amplification test (NAAT)performed on the
[employer] platform.
[2023-09-19 08:29] LABS: Hematocrit 39.2 % (39.0-52.0); Hemoglobin 13.5 g/dL (13.0-18.0); Mean Corp Hgb Conc. 34.4 g/dL (33.0-37.0); Mean Corpuscular Hgb 30.5 pg (27.0-31.0); Mean Corpuscular Volume 88.5 fL (80.0-94.0); Mean Platelet Volume 9.9 fL (7.4-10.4); Platelet Count 311 10^3/uL (130-400); Red Blood Cell Count 4.43 10^6/uL (4.70-6.10); Red Cell Dist. Width 12.9 % (11.5-14.5); White Blood Cell Count 16.3 10^3/uL (4.8-10.8)
[2023-09-19 09:10] LABS: Blood Urea Nitrogen 47 mg/dl (9-20); Calcium 9.8 mg/dl (8.4-10.2); Carbon Dioxide 23 mmol/L (22-30); Chloride 104 mmol/L (98-107); Estimated Creatinine Clearance 34 ml/min; Glucose 144 mg/dl (70-99); Potassium 4.4 mmol/L (3.5-5.1); Sodium 136 mmol/L (135-145); eGFR 36.21
--- NOTE | 2023-09-19 09:44 | W.PN.HOSP.TC ---
Addendum entered and electronically signed by Joseline Warren MD 09/19/23 13:46:
I personally performed a history and physical exam of the patient and discussed management with the resident. I reviewed the resident's note and agree with the documented findings and plan of care HPI/CC except changes in documentation
CVS: S1-S2 normal
Chest:few rales right base
Abdomen: Soft, NT / Bowel sounds present
Extremities: No edema,
# Acute respiratory failure
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
Chronic respiratory failure recently started on 3 L of oxygen as outpatient
Requiring 6 L now
He is a lifelong non-smoker
COVID neg
S/P Bronch and BAL and Cx. Await.
Continue steroids and wean very slowly
# Acute on chronic hypoxic respiratory failure
# Acute on chronic heart failure with preserved ejection fraction is also possible with weight gain of 6 pounds overnight and worsening hypoxia
Echo 9023-normal LV size and systolic function. Ejection fraction 60 to 65%. Mild concentric LVH. Stage III diastolic dysfunction suggesting restrictive filling pattern and increased filling pressure. Dilated RV with normal systolic function.
Mild to moderate MR. Well-seated aortic valve. Moderate TR. Estimated pulmonary artery pressure 57 mmHg
1 dose of Lasix 09/17/2023-seems to be euvolemic
Hold further Lasix
# Interstitial lung disease
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
Amiodarone was discontinued recently
Patient was on amiodarone from January 2022 till August 2023.
Reported shortness of breath in 2021 was felt to be secondary to long-haul COVID
Decadron started 09/17/23- Continue
# Paroxysmal atrial fibrillation-continue Eliquis. Patient is not on rate controlling agents as outpatient
History of ablations and cardioversion
# History of aortic valve replacement 2007
# Coronary artery calcifications
# Hyperlipidemia-continue simvastatin
# SHAILESH calcified 6.3 mm nodule
# Prostate disease-history of prostatectomy-continue finasteride
# CKD stage IIIb
# History of malignant neoplasm of the bladder with TURBT
# Unilateral kidney
History of cancer with robotic left nephroureterectomy September 2022
# History of nephrolithiasis
# Insomnia-continue Ambien
# DVT prophylaxis-continue Eliquis
# Full code
D/W Pulm
Original Note:
Today's Communication/Plan
-
Continue steroids
Wean off O2
Assessment / Plan
Assessment / Plan
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
# Acute respiratory failure
Chronic respiratory failure recently started on 3 L of home oxygen
Requiring 6 L now
No fever or any systemic signs of infection
He is a lifelong non-smoker
Covid and influenza negative
Appreciate Cardiology and Pulm input
Sputum culture 09/17: Many WBC, Moderate Mixed Bacterial Morphotypes
Status post bronchoscopy plus bronchioloalveolar lavage 09/18: Thick clear mucus seen. Cell counts plus differential, fungal, viral, Legionella, CD4 and cytology pending
# Acute on chronic heart failure with preserved ejection fraction
Echo 09/04: Normal left ventricular size and systolic function. No regional wall motion abnormalities are seen. LV ejection fraction is 60-65%. Mild concentric left ventricular hypertrophy. Stage III diastolic dysfunction suggestive of restrictive
filling pattern and increased filling pressures.
Overnight 6 pound weight gain at presentation
Adequately diuresed status post 40 mg IV Lasix once. Cr 1.8
Currently at dry weight
# Paroxysmal atrial fibrillation
Patient's failed multiple antiarrhythmics, status post 2 ablations and cardioversion
Not on any rate controlling agent as outpatient
Remains in sinus rhythm
-Continue Eliquis
Interstitial lung disease:
Diagnosed on recent admission. 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 Patient was on amiodarone from January 2022 until August 2023. Patient reports chronic cough beginning shortly after amiodarone was initiated. Amiodarone discontinued recently
-Appreciate pulmonary input
-Status post colonoscopy + BAL
-Continue Decadron
Chronic Kidney Disease:
Stage IIIb. Status post L nephrectomy.
- Cr 1.8, stable. Per patient, this is his baseline. Monitor
- Avoid nephrotoxic agents
Bladder cancer:
- Known to Dr. Wilburn, Urology
- Scheduled for surgical procedure this month
Hyperlipidemia:
- Continue Statin
Paroxysmal A-fib:
-Continue Eliquis
Benign prostatic hyperplasia:
-History of prostatectomy
-Continue finasteride
Constipation:
-Bowel regimen
DVT prophylaxis: Eliquis
CODE STATUS: Full code
Anticipated Discharge: 24 - 48 hours
Subjective/Interval History
-
Date of Service: September 19, 2023
Pt seen s/p bronchoscopy + BAL.
Objective Data
-
Labs:
Laboratory Results
09/19/23
07:58
WBC 16.3 H
Hgb 13.5
Hct 39.2
Plt Count 311
Sodium 136
Potassium 4.4
Chloride 104
Carbon Dioxide 23
BUN 47 H
Creatinine 1.8 H
Glucose 144 H
Calcium 9.8
Vital Signs:
Vital Signs
Temp Pulse Resp BP Pulse Ox
97.3 F 87 28 105/65 95
09/19/23 09:15 09/19/23 09:30 09/19/23 09:30 09/19/23 09:30 09/19/23 09:30
I&O
09/18/23 09/19/23 09/20/23
06:59 06:59 06:59
Intake Total 240 / 240 1440 / 1440
Output Total 2049 / 2049 250 / 250
Balance -1810 / -1810 1190 / 1190
Review of Systems
-
History Source: Patient
Constitutional: Reports No Symptoms and Weakness; Denies Fever
Respiratory: Reports No Symptoms and Cough
Cardiac: Reports No Symptoms; Denies Chest Pain, Diaphoresis, Palpitations or Syncope
Abdomen/GI: Denies No Symptoms, Abdominal Pain, Nausea, Vomiting or Diarrhea
Genitourinary: Reports No Symptoms
Musculoskeletal: Reports No Symptoms; Denies Joint Pain, Joint Swelling, Muscle Pain or Edema
Neuro: Reports Other (Residual somnolence from sedation)
Physical Exam
-
General: Well Developed, Well Nourished, No Apparent Distress and Comfortable; Negative Respiratory Distress
HEENT: Normocephalic, Atraumatic and Oxygen (6 L nasal cannula)
Respiratory: Crackles (Fine crackles in right lower lobe) and Non Labored Respirations
Cardiac: Regular Rhythm and S1/S2; Negative Murmur or Rub
GI: Soft, Nontender and Nondistended
Musculoskeletal: No Clubbing, No Cyanosis and No Edema
Skin: Warm and Dry; Negative Rash, Ulcers or Lesions
Neuro: Awake, Alert, Oriented and Other (Appears mildly somnolent)
Psych: Calm
[2023-09-19] MEDS: DECADRON IV (11:03)
[2023-09-19] MEDS: SENOKOT PO ×2 (11:03→20:13)
[2023-09-19] MEDS: ELIQUIS 2.5 MG PO ×2 (11:03→20:12)
--- NOTE | 2023-09-19 11:14 | PTCARENOTE ---
Pt returned from PACU (s/p bronchoscopy) via stretcher, accompanied by WEIGHT RECORDER. Pt AAO x3, MCGARRY; ambulatory to bed with assistance, joanna well, no c/o weakness/dizziness. VSS. Telemetry:NSR. On nc 6 lpm- pulseox 94%, pt with (+)ACUÑA; denies SOB; has
occ dry, non-productive cough. Abd soft, rounded, to start 2 Gm Na diet. Pt DTV post-procedure; urinal at bedside. Resting comfortably at present. Will continue to monitor.
[2023-09-19 13:56] LABS: Brochalveolar Lavage Character Clear (Clear); Brochalveolar Lavage Color Colorless; Brochalveolar Lavage Volume 2 ml
[2023-09-19 13:58] LABS: Brochalveolar Lavage WBC 91300 cells/ml
[2023-09-19 13:59] LABS: Brochalveolar Lavage Character Turbid (Clear); Brochalveolar Lavage Color Colorless; Brochalveolar Lavage Volume 2 ml; Brochalveolar Lavage WBC 392150 cells/ml
[2023-09-19 14:16] LABS: BAL Eosinophils 7 %; BAL Lymphocytes 84 %; BAL Macrophages 5 %; BAL Neutrophils 4 %
[2023-09-19 14:21] LABS: BAL Lymphocytes 23 %; BAL Macrophages 39 %; BAL Neutrophils 38 %
--- NOTE | 2023-09-19 15:00 | W.PN.CARDCBS ---
Addendum entered and electronically signed by Elvis Rodriguez MD 09/19/23 18:24:
We will sign off, please recall as needed
Addendum entered and electronically signed by Elvis Rodriguez MD 09/19/23 18:23:
I saw and examined the patient.
The Supervisor Computer Operations's note was reviewed and I agree with the note.
Comment: Briefly, 88-year-old man past medical history of atrial arrhythmias with multiple ablations in the past previously maintained on amiodarone and newly diagnosed interstitial lung disease who presents with worsening hypoxia
Cardiology was asked to evaluate the patient for possible heart failure
He had a left heart catheterization last week during prior hospitalization with normal pulmonary capillary wedge pressure
Does not appear overtly volume overloaded on exam and currently at his prior dry weight of 183-184 pounds
Hold off on any further diuretics
He should monitor his weight on a daily basis at home
Workup of possible interstitial lung disease ongoing with pulmonology
Original Note:
Today's Communication / Plan
-
No need for diuretics, but should continue to weight himself daily upon discharge. Will need a new scale at home
Amiodarone stopped last admission and might eventually recur with Afib. Follow on tele and treat as needed based on symptoms
Impression / Plan
-
PCP: Dr. Brant Kruse
Senior Contracts Administrator: Dr. Tomi Ring
Impression:
Acute on chronic respiratory failure
Newly diagnosed interstitial lung disease by CT 09/11/23
Recent hospitalization at 09/08/2023 to 09/12/2023 for hypoxia and newly diagnosed ILD
Paroxysmal atrial fibrillation
s/p PVI 10/08/2019
s/p PVI, posterior wall ablation, mitral annular flutter ablation 11/17/2020
s/p posterior L atrial wall ablation, right atrial tachycardia ablation 06/30/2021
Failed sotalol
Chronic amiodarone therapy from 01/2022 until 09/12/23
Paroxysmal atypical atrial flutter
Paroxysmal atrial tachycardia
Chronic anticoagulation with Eliquis, no recent interruption
Bladder cancer s/p L robotic nephroureterectomy 09/20/2022, multiple TURBTs with new bladder tumors
Multiple cystoscopies
h/o nephrolithiasis with stone removal and stent placement
Chronic renal insufficiency
h/o aortic valve replacement 2007
HLD
BPH
RHC 09/11/2023: Hemodynamics (mmHg): RA (m) : 8. RV (s/d,m) : 43/27, 7. PA (s/d, m) : 44/17, 26. PCWP (m) : 12. Cardiac Output : 4.36 L/min and Cardiac Index : 2.07 L/min/m-2
Lexiscan stress test @ [facility] 06/30/2008: No evidence of myocardial ischemia or scar. EF 58%
Echo 09/05/2023: Normal left ventricular size and systolic function with no regional wall motion abnormality and EF estimated 60-65%. Mild LVH. Grade 3 diastolic dysfunction with increased LV filling pressures. Dilated right ventricle with normal
RV systolic function. Severely dilated atria. Mild to moderate MR. Well-seated number 23 mm stentless freestyle aortic valve with peak/mean gradients 10/5 mmHg. Moderate TR. Estimated pulmonary artery pressure 57 mmHg
Plan:
-Ongoing hypoxia requiring 6 L NC. Pulm note reviewed and patient had bronchoscopy 09/19/23 that showed thick secretions that was managed with bronchoalveolar lavage.
-Pulm note outlines plan for ongoing systemic steroids and that a long and slow taper will be needed due to suspected amiodarone lung toxicity with possible symptom recurrence during attempts at weaning.
-Amiodarone stopped last admission for suspected ILD. Patient remains in SR with h/o pAfib and previous PVI and CV. Amiodarone was started 01/2022, previously patient had been on sotalol, but was having frequent breakthroughs of Afib so transitioned
to amiodarone. If patient recurs with Afib will consider alternative AAD vs rate control depending on symptoms.
-Continue Eliquis 2.5 mg twice daily for anticoagulation (age, creatinine).
-No objective or subjective improvement in hypoxia/SOB with diuresis. Patient was not taking a diuretic prior to admission. Patient should continue to weight himself daily at home now that he is starting steroids, but he needs a new scale. The scale
provided by is not accurate.
-Cardiology f/u arranged
Progress Note - Senior Contracts Administrator
Subjective
Date of Service: September 19, 2023
He just got back from bronchoscopy, not feeling any different at present
Objective
Labs:
09/19/23 07:58
09/19/23 07:58
Labs
Hgb 13.5 g/dL (13.0-18.0) 09/19/23 07:58
Hct 39.2 % (39.0-52.0) 09/19/23 07:58
Plt Count 311 10^3/uL (130-400) 09/19/23 07:58
Sodium 136 mmol/L (135-145) 09/19/23 07:58
Potassium 4.4 mmol/L (3.5-5.1) 09/19/23 07:58
BUN 47 mg/dl (9-20) H 09/19/23 07:58
Creatinine 1.8 mg/dL (0.7-1.3) H 09/19/23 07:58
Glucose 144 mg/dl (70-99) H 09/19/23 07:58
Troponins
09/17/23 09/17/23 09/17/23
09:43 16:33 17:15
Troponin I 0.024 Cancelled 0.026
09/17/23
22:16
Troponin I 0.025
Vital Signs and I&O:
Vital Signs
Temp Pulse Resp BP Pulse Ox
97.6 F 85 18 96/52 97
09/19/23 14:00 09/19/23 14:00 09/19/23 14:00 09/19/23 14:00 09/19/23 14:00
Vital Signs
Temp Pulse Resp BP Pulse Ox
97.6 F 85 18 96/52 97
09/19/23 14:00 09/19/23 14:00 09/19/23 14:00 09/19/23 14:00 09/19/23 14:00
Intake & Output
09/17/23 09/18/23 09/19/23 09/20/23
06:59 06:59 06:59 06:59
Intake Total 240 / 240 1440 / 1440 75 / 75
Output Total 2049 / 2049 250 / 250
Balance -1810 / -1810 1190 / 1190 75 / 75
Physical Exam
Physical Exam
GEN: AAO x3
HEENT: MMM
LUNGS: Wearing oxygen at 6 L NC. No audible wheeze
CV: SR on tele
ABD: ND
EXT: No edema B/L LE
NEURO: Gross non-focal
SKIN: No rash
--- NOTE | 2023-09-19 16:20 | CM ---
Patient and , Patience, seen bedside, initial assessment completed. Patient and resides in four story home with elevator, three steps to enter. Patient has a walker at home, is on home O2 through [facility]. Patient is current
with VN, denies SNF history. Patient PCP Dr. Kruse, pharmacy [place] in [facility], confirms prescription coverage. Patient and deny food insecurities, housing/utility insecurities, and transportation insecurities at home. CM will continue
to follow for all discharge planning needs.
Plan; [facility]
--- NOTE | 2023-09-19 16:46 | PTCARENOTE ---
Pt AAO x3, MCGARRY; OOB to chair with minimal assistance; denies weakness/dizziness; ambulated in antoine with PT earlier in shift. VSS. Telemetry:NSR. On nc 6 lpm- pulse ox 95%, pt with (+)ACUÑA/tachypnea with any activity. Abd soft, rounded, joanna PO
well. Voiding clear lt jona urine in urinal. resting in bed at present, no c/o; at bedside. Will continue to monitor.
[2023-09-19] MEDS: FLUSH (NSS) 1 FLUSH IV (17:39)
[2023-09-19] MEDS: MUCINEX 1200 MG PO (20:12)
[2023-09-19] MEDS: LIPITOR 10 MG PO (22:09)
[2023-09-19] MEDS: PROSCAR 5 MG PO (22:09)
[2023-09-20] MEDS: DECADRON 4 MG IV ×3 (01:12→17:19)
[2023-09-20 03:00] VITALS: BP 106/63
[2023-09-20 06:00] VITALS: BMI 24.2
--- NOTE | 2023-09-20 07:25 | W.PN.HOSP.TC ---
Addendum entered and electronically signed by Joseline Warren MD 09/20/23 13:35:
I personally performed a history and physical exam of the patient and discussed management with the resident. I reviewed the resident's note and agree with the documented findings and plan of care HPI/CC except changes in documentation
CVS: S1-S2 normal
Chest:few rales bilateral
Abdomen: Soft, NT / Bowel sounds present
Extremities: No edema,
# Acute respiratory failure
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
Chronic respiratory failure recently started on 3 L of oxygen as outpatient
Requiring 4 L now
He is a lifelong non-smoker
COVID neg
S/P Bronch and BAL and Cx. Await. Cx with usual rocky
Continue steroids and wean very slowly
# Acute on chronic hypoxic respiratory failure
# Acute on chronic heart failure with preserved ejection fraction is also possible with weight gain of 6 pounds overnight and worsening hypoxia
Echo 9023-normal LV size and systolic function. Ejection fraction 60 to 65%. Mild concentric LVH. Stage III diastolic dysfunction suggesting restrictive filling pattern and increased filling pressure. Dilated RV with normal systolic function.
Mild to moderate MR. Well-seated aortic valve. Moderate TR. Estimated pulmonary artery pressure 57 mmHg
1 dose of Lasix 09/17/2023-seems to be euvolemic
Hold further Lasix
# Interstitial lung disease
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
Amiodarone was discontinued recently
Patient was on amiodarone from January 2022 till August 2023.
Reported shortness of breath in 2021 was felt to be secondary to long-haul COVID
Decadron started 09/17/23- Continue and wean as tolerated
On 4 L today
# Paroxysmal atrial fibrillation-continue Eliquis. Patient is not on rate controlling agents as outpatient
History of ablations and cardioversion
# History of aortic valve replacement 2007
# Coronary artery calcifications
# Hyperlipidemia-continue simvastatin
# SHAILESH calcified 6.3 mm nodule
# Prostate disease-history of prostatectomy-continue finasteride
# CKD stage IIIb
# History of malignant neoplasm of the bladder with TURBT
# Unilateral kidney-History of cancer with robotic left nephroureterectomy September 2022
# History of nephrolithiasis
# Insomnia-continue Ambien
# DVT prophylaxis-continue Eliquis
# Full code
D/W Pulm
D/W at bed side
Original Note:
Today's Communication/Plan
-
Continue steroid, wean off O2
Assessment / Plan
Assessment / Plan
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
# Acute respiratory failure
Chronic respiratory failure recently started on 3 L of home oxygen
Required 6 L at presentation. Currently on 4 L
No fever or any systemic signs of infection
He is a lifelong non-smoker
Covid and influenza negative
Appreciate Cardiology and Pulm input
Sputum culture 09/17: Many WBC, Moderate Mixed Bacterial Morphotypes
Status post bronchoscopy plus bronchioloalveolar lavage 09/18: Thick clear mucus seen. Cell counts plus differential, fungal, viral, Legionella, CD4 and cytology pending
-Wean O2 as tolerated
# Acute on chronic heart failure with preserved ejection fraction
Echo 09/04: Normal left ventricular size and systolic function. No regional wall motion abnormalities are seen. LV ejection fraction is 60-65%. Mild concentric left ventricular hypertrophy. Stage III diastolic dysfunction suggestive of restrictive
filling pattern and increased filling pressures.
Overnight 6 pound weight gain at presentation
Adequately diuresed status post 40 mg IV Lasix once. Cr 1.8
Currently at dry weight
# Paroxysmal atrial fibrillation
Patient's failed multiple antiarrhythmics, status post 2 ablations and cardioversion
Not on any rate controlling agent as outpatient
Remains in sinus rhythm
-Continue Eliquis
Interstitial lung disease:
Diagnosed on recent admission. 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 Patient was on amiodarone from January 2022 until August 2023. Patient reports chronic cough beginning shortly after amiodarone was initiated. Amiodarone discontinued recently
-Continue Decadron
-Appreciate pulmonary input
-Status post colonoscopy + BAL: Viral, bacterial, fungal cultures pending. Cytology pending
Leukocytosis:
-Likely steroid response
-No new symptoms/fever/signs of infection
-Follow CBC
Hyperkalemia:
-Mild
-Corrected
Chronic Kidney Disease:
Stage IIIb. Status post L nephrectomy.
- Cr 1.8, stable. Per patient, this is his baseline. Monitor
- Avoid nephrotoxic agents
Bladder cancer:
- Known to Dr. Wilburn, Urology
- Scheduled for surgical procedure this month
Hyperlipidemia:
- Continue Statin
Paroxysmal A-fib:
-Continue Eliquis
Benign prostatic hyperplasia:
-History of prostatectomy
-Continue finasteride
Constipation:
-Bowel regimen
DVT prophylaxis: Eliquis
CODE STATUS: Full code
Anticipated Discharge: Within 24 hours
Subjective/Interval History
-
Date of Service: September 20, 2023
No acute overnight events
Pt reports some improvement in symptoms
Objective Data
-
Labs:
Laboratory Results
09/20/23
07:14
WBC Pending
Hgb Pending
Hct Pending
Plt Count Pending
Sodium Pending
Potassium Pending
Chloride Pending
Carbon Dioxide Pending
BUN Pending
Creatinine Pending
Glucose Pending
Calcium Pending
Vital Signs:
Vital Signs
Temp Pulse Resp BP Pulse Ox
97.9 F 79 18 106/63 96
09/20/23 03:00 09/20/23 03:00 09/20/23 03:00 09/20/23 03:00 09/20/23 03:00
I&O
09/19/23 09/20/23 09/21/23
06:59 06:59 06:59
Intake Total 1440 / 1440 995 / 995
Output Total 250 / 250 450 / 450
Balance 1190 / 1190 545 / 545
Review of Systems
-
History Source: Patient
Constitutional: Reports No Symptoms
EENT: Reports No Symptoms Reported
Respiratory: Reports Cough and Trouble Breathing
Cardiac: Reports No Symptoms; Denies Chest Pain, Diaphoresis, Palpitations or Syncope
Abdomen/GI: Reports No Symptoms, Anorexia and Other; Denies Abdominal Pain, Diarrhea or Constipated
Genitourinary: Reports No Symptoms
Musculoskeletal: Reports No Symptoms; Denies Joint Pain, Joint Swelling, Muscle Pain or Edema
Physical Exam
-
General: Well Developed, Well Nourished, No Apparent Distress and Comfortable
HEENT: Normocephalic, Atraumatic and Oxygen (4 L)
Respiratory: Crackles (Mild, right lower lobe) and Non Labored Respirations; Negative Wheezes, Rales or Rhonchi
Cardiac: Regular Rhythm, S1/S2 and Murmur (Left second intercostal space)
Musculoskeletal: No Clubbing, No Cyanosis and No Edema
Skin: Warm and Dry; Negative Rash, Ulcers or Lesions
Neuro: Awake, Alert and Oriented
Psych: Calm
[2023-09-20 07:34] VITALS: BP 114/63
[2023-09-20 07:36] LABS: Hematocrit 34.4 % (39.0-52.0); Hemoglobin 11.8 g/dL (13.0-18.0); Mean Corp Hgb Conc. 34.3 g/dL (33.0-37.0); Mean Corpuscular Volume 90.3 fL (80.0-94.0); Mean Platelet Volume 9.5 fL (7.4-10.4); Platelet Count 268 10^3/uL (130-400); Red Blood Cell Count 3.81 10^6/uL (4.70-6.10); White Blood Cell Count 16.2 10^3/uL (4.8-10.8)
[2023-09-20] MEDS: DUONEB 3 ML INH ×4 (07:44→19:17)
[2023-09-20 08:04] LABS: Blood Urea Nitrogen 53 mg/dl (9-20); Carbon Dioxide 28 mmol/L (22-30); Chloride 103 mmol/L (98-107); Estimated Creatinine Clearance 34 ml/min; Glucose 129 mg/dl (70-99); Potassium 5.2 mmol/L (3.5-5.1); Sodium 134 mmol/L (135-145); eGFR 36.21
[2023-09-20] MEDS: SENOKOT PO ×2 (08:16→20:59)
[2023-09-20] MEDS: ELIQUIS 2.5 MG PO ×2 (08:16→20:58)
[2023-09-20] MEDS: MUCINEX 1200 MG PO ×2 (08:16→20:58)
[2023-09-20] MEDS: LOKELMA 5 GRAM PO (09:21)
[2023-09-20] MEDS: FLUSH (NSS) 1 FLUSH IV (09:24)
[2023-09-20 11:47] VITALS: BP 105/71
--- NOTE | 2023-09-20 15:05 | W.PN.PUL3 ---
Today's Communication / Plan
-
Continue dexamethasone for now
Will consider transition to oral prednisone in the next 24 to 48 hours
Amiodarone has been discontinued
Out of bed to chair, ambulate, assess oxygen requirements
Assessment
-
Assessment: 88-year-old male with a past medical history of biologic aortic valve replacement, history of A-fib/flutter on Eliquis previously on amiodarone, history of transitional cell carcinoma, BPH and hyperlipidemia who presents with worsening
SOB and 5 pound weight gain. Patient recently hospitalized here at from 09/07ho presented with weakness, weight loss and ACUÑA, thought to initially be in heart failure which was ruled out via subsequent RHC with PCWP of 12 mmHg, mPAP
26mmHg with CO/CI: 4.36/2.07. Subsequently CT chest performed on 09/12/2023 showing widespread GGO with broad differential including IIB and drug toxicities as patient was on amiodarone. Amiodarone was discontinued and he was discharged on 09/11 to
home with outpatient follow-up scheduled with our office. Patient was hemodynamically stable in triage however hypoxic to 76% on 4 L/min which improved to 95% on 6 L/min. He was afebrile to 98.1 �F. Labs showed proBNP of 767 (742 on 09/08/2023),
negative troponin of 0.024, and negative COVID-19 antigen, and negative flu A/B. CXR showed continued widespread bilateral pulmonary opacities without significant change compared to recent CXR on 09/12/2023. The patient was given Lasix 40 mg in the
ER plus Decadron and admitted to the service with pulmonary consulted for additional management/recommendations.
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
Impression:
#Acute on chronic respiratory failure with hypoxia - likely due to drug-induced pulmonary toxicity from amiodarone vs idiopathic interstitial pneumonia versus granulomatous diffuse parenchymal lung disease
#Abnormal CT chest from 09/12/2023, showing subpleural reticular + patchy opacities with widespread GGO and mediastinal/hilar lymphadenopathy, basilar changes have worsened compared to CT A/P from 08/06/2023, and he had very faint reticular opacities
seen in the bases going back to January 2023; his CT chest from April 2021 showed no evidence of ILD at that time
#Paroxysmal A-fib s/p PVI (09/2019), ablation (11/2020) and on amiodarone since 01/2022 when he stopped sotalol
#Hx of severe s/p tissue AVR
#Chronic HFpEF with stage III diastolic dysfunction, mild-moderate MR, moderate TR, dilated RV with aortic valve peak/mean gradients of 10/5 mmHg, respectively (seen on TTE from 09/05/2023)
Plan:
Patient appears to be subjectively improved today
Mild crackles on exam noted
Bronchoscopy results reviewed from 3. 7% eosinophils noted
Based on medical records, his interstitial changes started somewhere between 05/08/2021 and 02/05/2023, and they have significantly worsened between July 2023 and this past month
- He started taking amiodarone in January 2022 with 200 mg BID x 1 month followed by 200mg daily after being transitioned off of sotalol
- His A-fib had been resolved after he had an ablation in Nov 2020 in addition to being on the amiodarone
His differential for his SOB and hypoxia with abnormal CT chest is: drug-induced toxicity, STORY TELLER, sarcoidosis, UIP/DIP and CEP; less likely AIP or NSIP
- Also given the likelihood of amiodarone toxicity, this can cause OP and/or eosinophilic pneumonia
Amiodarone has been discontinued
Continue systemic steroids - currently on Decadron 4 mg IV q8hr (equivalent to 80 mg prednisone); wean this as tolerated
- Because of the long half-life of amiodarone, he will need slow steroid taper and we have to be prepared for symptom recurrence with steroid tapering as well as continued respiratory symptoms and hypoxia despite drug discontinuation even in the
presence of systemic steroids
DVT ppx: On Eliquis
Patient will require follow-up with pulmonary to determine steroid taper
Disposition efforts
Data:
CXR 09-17-2023:
1. Patchy foci of interstitial and alveolar opacity bilaterally, most pronounced within the mid and lower lung zones on each side. No significant change compared to prior chest x-ray.
2. Differential diagnosis includes multifocal pneumonia, ARDS, and atypical pulmonary edema.
CT Chest w/o Contrast 09-12-2023:
Widespread prominence of the pulmonary interstitium, particularly peripherally and new Widespread areas of groundglass opacity in the lungs bilaterally in comparison to relative remote prior Chest CT. Some of several differential diagnostic
possibilities include atypical pneumonitis (UIP/DIP), sarcoidosis, alveolar proteinosis, eosinophilic pneumonia and lipoid pneumonia.
Mild mediastinal lymphadenopathy.
Cardiomegaly and coronary artery calcifications.
Right heart catheterization 09-11-2023:
Hemodynamics (mmHg):
RA (m) : 8
RV (s/d,m) : 43/27, 7
PA (s/d, m) : 44/17, 26
PCWP (m) : 12
Non Invasive BP: 125/85, 102
Cardiac Output : 4.36 L/min and Cardiac Index : 2.07 L/min/m-2
Systemic vascular resistance: 21.6 Wood units or 1725 [id number](-5)
Pulmonary vascular resistance: 2.98 Wood units or 239 [id number](-5)
CONCLUSION:
1. Compensated right and left ventricular filling pressures
TTE 09-05-2023:
Normal left ventricular size and systolic function. No regional wall motion
abnormalities are seen. LV ejection fraction is 60-65% by Cooney's method of
discs. Mild concentric left ventricular hypertrophy. Stage III diastolic
dysfunction suggestive of restrictive filling pattern and increased filling
pressures.
Dilated right ventricle with normal systolic function.
Severely dilated atria.
Mild to moderate mitral regurgitation.
Well-seated #23 mm stentless freestyle aortic valve with peak/mean gradients at
10/5 mmHg.
Moderate tricuspid regurgitation. Estimated pulmonary artery pressure of 57
mmHg assuming a right atrial pressure of 3 mmHg.
Compared to prior study dated 09/23/2019, there is no significant change, prior
aortic valve gradients were peak/mean 9/5 mmHg
Subjective Data
-
Date of Service:
Date of Service: September 20, 2023
Chief Complaint: Pulmonary Follow Up
Subjective:
Patient examined earlier this morning. Feeling somewhat better. Still has mild cough. Denies chest pain, hemoptysis, nausea, abdominal pain. Primary concern is loss of muscle mass over the past few weeks to months
Objective Data
Data Reviewed
Vital Signs / I&O / Oxygen:
Vital Signs
Temp Pulse Resp BP Pulse Ox
97.7 F 81 16 105/71 95
09/20/23 11:47 09/20/23 11:47 09/20/23 11:47 09/20/23 11:47 09/20/23 11:47
Intake and Output
09/19/23 09/20/23 09/21/23
06:59 06:59 06:59
Intake Total 1440 / 1440 995 / 995
Output Total 250 / 250 450 / 450
Balance 1190 / 1190 545 / 545
SaO2 95
Nasal Cannula flow liters per 4
minute
Physical Exam
General: Comfortable
HEENT: Normocephalic and Anicteric
Cardiovascular: S1-S2, Regular Rhythm, Murmur (n) and Peripheral Edema (Negative)
Respiratory: Wheeze (Negative), Crackles (bilateral), Rhonchi (Negative), Non-Labored Respirations and Stridor (n)
GI: Soft, Non Distended, Non Tender and Normal Bowel Sounds
Neurology: Awake, Alert and No Motor Deficits (Able to sit up without assistance)
Skin: Warm, Cyanosis (n), Jaundice (n) and Rash (n)
Labs/Micro/Reports
Lab Data
09/20/23 07:14
09/20/23 07:14
Microbiology
09/19/23 09:47 Lingula Respiratory Culture - Preliminary
Usual Respiratory Poornima
09/19/23 09:47 Lingula Gram Stain - Preliminary
09/19/23 09:47 Bronch Right Lower Lobe Respiratory Culture - Preliminary
Usual Respiratory Poornima
09/19/23 09:47 Bronch Right Lower Lobe Gram Stain - Preliminary
09/18/23 21:42 Sputum Respiratory Culture - Preliminary
Usual Respiratory Poornima
09/18/23 21:42 Sputum Gram Stain - Preliminary
09/19/23 09:48 Bronchoalveolar Lavage Fungal Culture - Preliminary
Culture in progress.
Positive cultures are reported as soon as detected.
Final report to follow in four to five weeks.
09/19/23 09:48 Bronchoalveolar Lavage Fungal Culture - Preliminary
Culture in progress.
Positive cultures are reported as soon as detected.
Final report to follow in four to five weeks.
09/17/23 17:15 Nasal Swab Influenza Types A & B (MIO) - Final
Negative for Influenza A & B, NAAT
Negative results must be combined with clinical observations
and patient history.
Nucleic Acid Amplification test (NAAT)performed on the
[employer] platform.
[2023-09-20 15:41] VITALS: BP 118/68
[2023-09-20 19:36] VITALS: BP 99/58
[2023-09-20] MEDS: PROSCAR 5 MG PO (21:44)
[2023-09-20] MEDS: LIPITOR 10 MG PO (21:44)
[2023-09-20 23:44] VITALS: BP 111/70
[2023-09-21 03:00] VITALS: BP 122/81
[2023-09-21] MEDS: DECADRON 4 MG IV ×2 (03:00→10:34)
[2023-09-21 06:00] VITALS: BMI 23.9
[2023-09-21] MEDS: DUONEB 3 ML INH ×2 (07:43→11:17)
[2023-09-21 07:52] VITALS: BP 107/63
[2023-09-21] MEDS: ELIQUIS 2.5 MG PO (08:09)
[2023-09-21] MEDS: MUCINEX 1200 MG PO (08:09)
[2023-09-21] MEDS: SENOKOT PO (08:13)
--- NOTE | 2023-09-21 08:37 | W.PN.HOSP.TC ---
Addendum entered and electronically signed by Joseline Warren MD 09/21/23 14:15:
I personally performed a history and physical exam of the patient and discussed management with the resident. I reviewed the resident's note and agree with the documented findings and plan of care HPI/CC except changes in documentation
CVS: S1-S2 normal
Chest:few rales bilateral
Abdomen: Soft, NT / Bowel sounds present
Extremities: No edema,
# Acute respiratory failure
Likely flare of ILD from Amiodarone.
Chronic respiratory failure recently started on 3 L of oxygen as outpatient
Requiring L now
He is a lifelong non-smoker
COVID neg
S/P Bronch and BAL and Cx. Await. Cx with usual rocky
Continue steroids and wean very slowly
To be changed to PO per Pulm
# Acute on chronic hypoxic respiratory failure
# Acute on chronic heart failure with preserved ejection fraction is also possible with weight gain of 6 pounds overnight and worsening hypoxia
Echo 9023-normal LV size and systolic function. Ejection fraction 60 to 65%. Mild concentric LVH. Stage III diastolic dysfunction suggesting restrictive filling pattern and increased filling pressure. Dilated RV with normal systolic function.
Mild to moderate MR. Well-seated aortic valve. Moderate TR. Estimated pulmonary artery pressure 57 mmHg
1 dose of Lasix 09/17/2023-seems to be euvolemic
Hold further Lasix
# Interstitial lung disease
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
Amiodarone was discontinued recently
Patient was on amiodarone from January 2022 till August 2023.
Reported shortness of breath in 2021 was felt to be secondary to long-haul COVID
Decadron started 09/17/23- Continue and wean as tolerated
On 3 L today
# Paroxysmal atrial fibrillation-continue Eliquis. Patient is not on rate controlling agents as outpatient
History of ablations and cardioversion
# History of aortic valve replacement 2007
# Coronary artery calcifications
# Hyperlipidemia-continue simvastatin
# SHAILESH calcified 6.3 mm nodule
# Prostate disease-history of prostatectomy-continue finasteride
# CKD stage IIIb
# History of malignant neoplasm of the bladder with TURBT
# Unilateral kidney-History of cancer with robotic left nephroureterectomy September 2022
# History of nephrolithiasis
# Insomnia-continue Ambien
# DVT prophylaxis-continue Eliquis
# Full code
D/W Pulm
OK for discharge on PO steroids and taper
Official Home O2 eval
Needs concentrator and portable.
PT OT eval noted- OK for Home per that on 09/19/23.
D/W patient regarding her discharge. All questions answered. Follow-up care discussed. He has oxygen concentrator, portable tanks at home. Will prescribe an albuterol inhaler for PRN use.
Total discharge coordination time 37 min
Original Note:
Today's Communication/Plan
-
Steroid taper, PT OT/home O2 assessment, discharge planning
Assessment / Plan
Assessment / Plan
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
# Acute respiratory failure
Chronic respiratory failure recently started on 3 L of home oxygen
Required 6 L at presentation. Weaned down to 3 L with improved symptoms
No fever or any systemic signs of infection
He is a lifelong non-smoker
Covid and influenza negative
Appreciate Cardiology and Pulm input
Sputum culture 09/17: Many WBC, Moderate Mixed Bacterial Morphotypes
Status post bronchoscopy plus bronchioloalveolar lavage 09/18: Thick clear mucus seen. Cell counts plus differential, fungal, viral, Legionella, CD4 and cytology.
-Wean O2 as tolerated
-PT OT
# Acute on chronic heart failure with preserved ejection fraction
Echo 09/04: Normal left ventricular size and systolic function. No regional wall motion abnormalities are seen. LV ejection fraction is 60-65%. Mild concentric left ventricular hypertrophy. Stage III diastolic dysfunction suggestive of restrictive
filling pattern and increased filling pressures.
Overnight 6 pound weight gain at presentation
Adequately diuresed status post 40 mg IV Lasix once. Cr 1.6
Currently at dry weight
# Paroxysmal atrial fibrillation
Patient's failed multiple antiarrhythmics, status post 2 ablations and cardioversion
Not on any rate controlling agent as outpatient
Remains in sinus rhythm
-Continue Eliquis
Interstitial lung disease:
Diagnosed on recent admission. 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 Patient was on amiodarone from January 2022 until August 2023. Patient reports chronic cough beginning shortly after amiodarone was initiated. Amiodarone discontinued recently
-Continue Decadron
-Appreciate pulmonary input
-Status post colonoscopy + BAL: Viral, bacterial, fungal cultures pending
-Steroid taper
-Pulmonology follow-up outpatient
Leukocytosis:
-Likely steroid response
-No new symptoms/fever/signs of infection
-Follow CBC
Hyperkalemia:
-Mild
-Corrected
Chronic Kidney Disease:
Stage IIIb. Status post L nephrectomy.
- Cr 1.6, stable. Per patient, this is his baseline. Monitor
- Avoid nephrotoxic agents
Bladder cancer:
- Known to Dr. Wilburn Urology
- Scheduled for surgical procedure this month
Hyperlipidemia:
- Continue Statin
Paroxysmal A-fib:
-Continue Eliquis
Benign prostatic hyperplasia:
-History of prostatectomy
-Continue finasteride
Constipation:
-Bowel regimen
DVT prophylaxis: Eliquis
CODE STATUS: Full code
Anticipated Discharge: Today
Subjective/Interval History
-
Date of Service: September 21, 2023
Patient reports improvement in symptoms. No acute overnight events
Objective Data
-
Labs:
Laboratory Results
09/21/23
08:06
Sodium Pending
Potassium Pending
Chloride Pending
Carbon Dioxide Pending
BUN Pending
Creatinine Pending
Glucose Pending
Calcium Pending
Vital Signs:
Vital Signs
Temp Pulse Resp BP Pulse Ox
97.9 F 75 16 122/81 96
09/21/23 03:00 09/21/23 07:53 09/21/23 07:53 09/21/23 03:00 09/21/23 07:53
I&O
09/20/23 09/21/23 09/22/23
06:59 06:59 06:59
Intake Total 995 / 995 1410 / 1410
Output Total 450 / 450 600 / 600
Balance 545 / 545 810 / 810
Review of Systems
-
History Source: Patient
Constitutional: Reports No Appetite; Denies Weakness
Respiratory: Reports Cough; Denies Trouble Breathing
Cardiac: Reports No Symptoms
Abdomen/GI: Reports No Symptoms
Genitourinary: Reports No Symptoms; Denies Dysuria, Flank Pain or Difficulty Voiding
Musculoskeletal: Reports No Symptoms
Neuro: Denies Dizzy or Headache
Physical Exam
-
General: Well Developed, No Apparent Distress and Comfortable
HEENT: Normocephalic, Atraumatic, Moist Mucous Membranes, Anicteric and Oxygen (3L nasal cannula)
Respiratory: Clear to Auscultation
Cardiac: Regular Rhythm and S1/S2; Negative Calf Tenderness
GI: Soft, Nontender and Nondistended
Genito-urinary: No Costovertebral Tender
Musculoskeletal: No Clubbing and No Cyanosis
Skin: Warm and Dry
Neuro: Awake, Alert and Oriented
Psych: Calm
[2023-09-21 09:11] LABS: Blood Urea Nitrogen 46 mg/dl (9-20); Carbon Dioxide 28 mmol/L (22-30); Chloride 102 mmol/L (98-107); Estimated Creatinine Clearance 39 ml/min; Glucose 119 mg/dl (70-99); Potassium 4.8 mmol/L (3.5-5.1); Sodium 134 mmol/L (135-145)
[2023-09-21 09:30] LABS: Hematocrit 34.3 % (39.0-52.0); Hemoglobin 11.7 g/dL (13.0-18.0); Mean Corp Hgb Conc. 34.1 g/dL (33.0-37.0); Mean Corpuscular Hgb 30.8 pg (27.0-31.0); Mean Corpuscular Volume 90.3 fL (80.0-94.0); Mean Platelet Volume 9.6 fL (7.4-10.4); Platelet Count 263 10^3/uL (130-400); White Blood Cell Count 11.1 10^3/uL (4.8-10.8)
[2023-09-21] MEDS: FLUSH (NSS) 1 FLUSH IV (10:36)
--- NOTE | 2023-09-21 10:37 | W.PN.PUL3 ---
Today's Communication / Plan
-
Cytopathology from recent BAL pending - follow up results; Cx NGTD
Continue dexamethasone for now, weaning down to 40mg IV q12hr tonight, but pt can go home on prednisone taper starting at 50mg and reduce by 10mg every 8th day until he sees me in the office
Recommend permanent discontinuation of amiodarone
Out of bed to chair, ambulate, assess oxygen requirements, PT/OT rec'd home health on --> CM for set up
Pulmonary service to follow while he remains hospitalized
Assessment
-
Assessment: 88-year-old male with a past medical history of biologic aortic valve replacement, history of A-fib/flutter on Eliquis previously on amiodarone, history of transitional cell carcinoma, BPH and hyperlipidemia who presents with worsening
SOB and 5 pound weight gain. Patient recently hospitalized here at from 09/07ho presented with weakness, weight loss and ACUÑA, thought to initially be in heart failure which was ruled out via subsequent RHC with PCWP of 12 mmHg, mPAP
26mmHg with CO/CI: 4.36/2.07. Subsequently CT chest performed on 09/12/2023 showing widespread GGO with broad differential including IIB and drug toxicities as patient was on amiodarone. Amiodarone was discontinued and he was discharged on 09/11 to
home with outpatient follow-up scheduled with our office. Patient was hemodynamically stable in triage however hypoxic to 76% on 4 L/min which improved to 95% on 6 L/min. He was afebrile to 98.1 �F. Labs showed proBNP of 767 (742 on 09/08/2023),
negative troponin of 0.024, and negative COVID-19 antigen, and negative flu A/B. CXR showed continued widespread bilateral pulmonary opacities without significant change compared to recent CXR on 09/12/2023. The patient was given Lasix 40 mg in the
ER plus Decadron and admitted to the service with pulmonary consulted for additional management/recommendations.
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
Impression:
#Acute on chronic respiratory failure with hypoxia - likely due to drug-induced pulmonary toxicity from amiodarone vs idiopathic interstitial pneumonia versus granulomatous diffuse parenchymal lung disease
#Abnormal CT chest from 09/12/2023, showing subpleural reticular + patchy opacities with widespread GGO and mediastinal/hilar lymphadenopathy, basilar changes have worsened compared to CT A/P from 08/06/2023, and he had very faint reticular opacities
seen in the bases going back to January 2023; his CT chest from April 2021 showed no evidence of ILD at that time
#Paroxysmal A-fib s/p PVI (09/2019), ablation (11/2020) and on amiodarone since 01/2022 when he stopped sotalol - currently in NSR
#Hx of severe s/p tissue AVR
#Chronic HFpEF with stage III diastolic dysfunction, mild-moderate MR, moderate TR, dilated RV with aortic valve peak/mean gradients of 10/5 mmHg, respectively (seen on TTE from 09/05/2023)
Plan:
Patient appears to stable breathing comfortably on 3 L/min and is eager to home
Mild crackles on exam noted in the RLL today only
Bronchoscopy results reviewed from 3. 7% eosinophils noted in RLL with lymphocyte predominance, lingula has mixed cell counts with predominant CD of macrophages + PMNs
Based on medical records and review of prior CT chest imaging, his interstitial changes started somewhere between 05/08/2021 and 02/05/2023, and they have significantly worsened between July 2023 and this past month
- He started taking amiodarone in January 2022 with 200 mg BID x 1 month followed by 200mg daily after being transitioned off of sotalol
- His A-fib had been resolved after he had an ablation in Nov 2020 in addition to being on the amiodarone
His differential for his SOB and hypoxia with abnormal CT chest is: drug-induced toxicity, [employer], sarcoidosis, UIP/DIP and CEP; less likely AIP or NSIP
- Also given the likelihood of amiodarone toxicity, this can cause OP and/or eosinophilic pneumonia --> eosinophilic pneumonia has been virtually ruled out from recent BAL
Amiodarone has been discontinued
Continue systemic steroids - currently on Decadron 4 mg IV q8hr (equivalent to 80 mg prednisone); wean this as tolerated --> wean today to 40mg IV q12hr, and if he goes home then will start at prednisone 50mg daily and wean by 10mg every 8th day
until he sees me in the office on 10/08
- Because of the long half-life of amiodarone, he will need slow steroid taper and we have to be prepared for symptom recurrence with steroid tapering as well as continued respiratory symptoms and hypoxia despite drug discontinuation even in the
presence of systemic steroids
DVT ppx: On Eliquis
Patient will require follow-up with pulmonary to determine steroid taper - he has appt with me on 10/09/2023
Disposition efforts with PT/OT --> rec'd home health on 09/19/2023
I am okay for patient to be discharged home today with prednisone taper as above assuming that his home health services can be arranged with case management and O2 oxygen can also be set up for him. Please recheck walking home oxygen assessment
today.
Pulmonary service will continue to follow along while he remains hospitalized.
Total time spent today was 35 minutes for this encounter. Time includes reviewing laboratory test/imaging results, reviewing pertinent medical records, obtaining and reviewing medical history, performing an appropriate exam, ordering medications,
tests and procedures. Time also includes documentation of this encounter, coordinating patient care and communicating with other healthcare professionals. Total time does not include separately billed tests performed on this date of service.
Data:
CXR 09-19-2023: A few lines overlying the upper apices which are favored to be external to the patient rather than sales representative advertising of small apical pneumothoraces. Consider repeat chest radiograph in 1-2 hours. Stable bilateral interstitial and
airspace opacities.
CXR 09-17-2023:
1. Patchy foci of interstitial and alveolar opacity bilaterally, most pronounced within the mid and lower lung zones on each side. No significant change compared to prior chest x-ray.
2. Differential diagnosis includes multifocal pneumonia, ARDS, and atypical pulmonary edema.
CT Chest w/o Contrast 09-12-2023:
Widespread prominence of the pulmonary interstitium, particularly peripherally and new Widespread areas of groundglass opacity in the lungs bilaterally in comparison to relative remote prior Chest CT. Some of several differential diagnostic
possibilities include atypical pneumonitis (UIP/DIP), sarcoidosis, alveolar proteinosis, eosinophilic pneumonia and lipoid pneumonia.
Mild mediastinal lymphadenopathy.
Cardiomegaly and coronary artery calcifications.
Right heart catheterization 09-11-2023:
Hemodynamics (mmHg):
RA (m) : 8
RV (s/d,m) : 43/27, 7
PA (s/d, m) : 44/17, 26
PCWP (m) : 12
Non Invasive BP: 125/85, 102
Cardiac Output : 4.36 L/min and Cardiac Index : 2.07 L/min/m-2
Systemic vascular resistance: 21.6 Wood units or 1725 [id number](-5)
Pulmonary vascular resistance: 2.98 Wood units or 239 [id number](-5)
CONCLUSION:
1. Compensated right and left ventricular filling pressures
TTE 09-05-2023:
Normal left ventricular size and systolic function. No regional wall motion
abnormalities are seen. LV ejection fraction is 60-65% by Cooney's method of
discs. Mild concentric left ventricular hypertrophy. Stage III diastolic
dysfunction suggestive of restrictive filling pattern and increased filling
pressures.
Dilated right ventricle with normal systolic function.
Severely dilated atria.
Mild to moderate mitral regurgitation.
Well-seated #23 mm stentless freestyle aortic valve with peak/mean gradients at
10/5 mmHg.
Moderate tricuspid regurgitation. Estimated pulmonary artery pressure of 57
mmHg assuming a right atrial pressure of 3 mmHg.
Compared to prior study dated 09/23/2019, there is no significant change, prior
aortic valve gradients were peak/mean 9/5 mmHg
Subjective Data
-
Date of Service:
Date of Service: September 21, 2023
Chief Complaint: Pulmonary Follow Up
Subjective:
Seen and evaluated today at bedside. No acute events reported overnight. He feels well and is breathing comfortably on 3 L/min nasal cannula. He has a cough and is bringing up phlegm easier since starting Mucinex. He denies chest pain, headache,
abdominal pain, fevers or chills.
Review of Systems
General: Other (Negative unless mentioned above)
Objective Data
Data Reviewed
Vital Signs / I&O / Oxygen:
Vital Signs
Temp Pulse Resp BP Pulse Ox
98.2 F 75 16 107/63 98
09/21/23 07:52 09/21/23 07:53 09/21/23 07:53 09/21/23 07:52 09/21/23 08:30
Intake and Output
09/20/23 09/21/23 09/22/23
06:59 06:59 06:59
Intake Total 995 / 995 1410 / 1410
Output Total 450 / 450 600 / 600
Balance 545 / 545 810 / 810
SaO2 98
Nasal Cannula flow liters per 3
minute
Physical Exam
General: Comfortable
HEENT: Normocephalic and Anicteric
Cardiovascular: S1-S2, Regular Rhythm, Murmur (n) and Peripheral Edema (Negative)
Respiratory: Wheeze (Negative), Crackles (RLL), Rhonchi (Negative), Non-Labored Respirations and Stridor (n)
GI: Soft, Non Distended, Non Tender and Normal Bowel Sounds
Neurology: Awake, Alert and No Motor Deficits (Able to sit up without assistance)
Skin: Warm, Cyanosis (n), Jaundice (n) and Rash (n)
Labs/Micro/Reports
Lab Data
09/21/23 09:05
09/21/23 08:06
Microbiology
09/19/23 09:47 Lingula Respiratory Culture - Preliminary
Usual Respiratory Poornima
09/19/23 09:47 Lingula Gram Stain - Preliminary
09/19/23 09:47 Bronch Right Lower Lobe Respiratory Culture - Preliminary
Usual Respiratory Poornima
09/19/23 09:47 Bronch Right Lower Lobe Gram Stain - Preliminary
09/18/23 21:42 Sputum Respiratory Culture - Preliminary
Usual Respiratory Poornima
09/18/23 21:42 Sputum Gram Stain - Preliminary
09/19/23 09:48 Bronchoalveolar Lavage Fungal Culture - Preliminary
Culture in progress.
Positive cultures are reported as soon as detected.
Final report to follow in four to five weeks.
09/19/23 09:48 Bronchoalveolar Lavage Fungal Culture - Preliminary
Culture in progress.
Positive cultures are reported as soon as detected.
Final report to follow in four to five weeks.
[2023-09-21 11:20] VITALS: BP 95/63
[2023-09-21 14:58] VITALS: BP 102/62; PULSE 90; O2SAT 94
--- NOTE | 2023-09-21 15:45 | RESPNOTE ---
Home O2 assessment completed.
PT/OT worked with patient on 3L O2, with documented desat to 86%, about 1 hour prior to this assessment.
at Rest on 3L O2, SpO2 98-100%. patient ambulated about 70 feet on 3L and dropped SpO2 to 86%.
O2 increased to 4L, SpO2 improved to 94% within 1 minute.
patient ambulated an additional 70feet back to room on 4L, SpO2 90%.
patient was able to ambulate with RW and supervision. patient states he has a concentrator and tanks already.
--- NOTE | 2023-09-21 16:00 | W.DCSUMMARY ---
Discharge Summary
Discharge Data
Date of Admission: 09/18/23
Date of Discharge: 09/21/23
-
Pending Results: Yes
Additional Pending Results:
Bronchoalveolar lavage, cultures and cytology
Hospital Course
88-year-old male with history of A-fib on Eliquis, CHF, interstitial lung disease, CKD stage IIIb, transitional cell cancer status post left nephrectomy, hypercholesterolemia, kidney stones, presented to the ED after he gained 6 pounds in 1 day
measured at home. He also complained of worsening shortness of breath with minimal activity and an ongoing cough x 2 weeks. Of note, he was recently hospitalized where CT of chest revealed interstitial lung disease, thought to be secondary to
amiodarone toxicity versus other types of pneumonitis, amiodarone was discontinued and patient was discharged on 3 L home O2.
On presentation he was afebrile, tachypneic, hypoxic on 3 L O2, requiring 6 L O2 nasal cannula. Chest x-ray showed patchy foci of interstitial and alveolar opacities bilaterally mostly in the mid to lower lung zones.
Given history of 6 pound weight gain in 1 day + worsening dyspnea, patient was given 40 mg IV Lasix once, with adequate diuresis and weight loss. however symptoms persisted with unchanged oxygen demand. He was started on Decadron IV daily, and
scheduled for bronchoscopy with bronchoalveolar lavage. Home medications were continued throughout stay. Creatinine improved from 2.2 on presentation to 1.7 at discharge
Symptoms slowly improved. Patient was discharged on 3 L O2 nasal cannula, and oral steroid taper.
Will require BMP 1 week after discharge. Strong recommendation to follow-up with Dr. Faustin, pulmonary medicine, on 10/09/2023 at 4:15 PM. Please follow-up with Dr. Ring, cardiology. Follow-up with PCP Brant Kruse MD within 2 weeks.
Relevant data:
CXR space 09/16: Patchy foci of interstitial and alveolar opacity bilaterally, most pronounced within the mid and lower lung zones on each side. No significant change compared to prior chest x-ray. Differential diagnosis includes multifocal
pneumonia, ARDS, and atypical pulmonary edema.
Bronchoalveolar lavage 09/18: Viral, bacterial, fungal cultures and cytology pending
Sputum culture 09/17: Usual respiratory rocky
EKG 09/16: Sinus rhythm with first-degree AV block with premature supraventricular complexes. Left axis deviation. Left ventricular hypertrophy with QRS widening and repolarization abnormality
Consults:
Cardiology: Dr. Nhan Vazquez
Pulmonary medicine: Dr. Fredi Faustin MD
Physical therapy/Occupational Therapy
Discharge Plan
-
Patient Disposition: Home with Home Care
Discharge Diagnosis/Procedures: Acute hypoxic respiratory failure,AMiodarone induced Lung Injury
Diet: 2 Gram Sodium and Restrict fluids to 64 oz
Activity: No strenuous activity
Driving Restrictions: As prior to admission
Bathing Restrictions: None
Blood Work: Thyroid function tests 3 month, BMP 1 week
Other Services: VN
Specialty Instructions: Weigh Daily- Call MD for wt gain/loss 3 lbs overnight/5 lbs in 1 week
Referrals:
Mamadou Faustin MD [Active] - 10/09/23 4:15 pm
Brant Kruse MD [Family Provider] -
Richardson Ring MD [Active] - 10/22/23 2:40 pm (You have an appt to see Dr. Tomi Ring's nurse practitioner, Maral, at the [place] office on 10/22/23 at 2:40 PM. Please call [phone] if you need to reschedule.)
Additional Discharge Medication Instructions: Prednisone taper: 50 mg daily for 7 days, followed by 40 mg daily for 7 days, followed by 30 mg daily for 7 days, until seen by pulmonary medicine, Dr. Mamadou Faustin on 10/09/2023. Sugars can run high
on steroids, see pcp to monitor.
Prescriptions:
New
guaifenesin [Mucus Relief ER] 1,200 mg tablet extended release 12hr
1,200 mg PO BID Qty: 30 0RF
albuterol sulfate 90 mcg/actuation HFA aerosol inhaler
2 puff inhalation Q6H PRN (Reason: shortness of breath or wheezing) Qty: 6.7 0RF
prednisone 50 mg tablet
50 mg PO DAILY 7 Days Qty: 7 0RF
Rx Instructions:
START ON 10/02/2023, LAST TAB TO BE TAKEN ON 09/28/2023.
prednisone 20 mg tablet
40 mg PO DAILY 7 Days Qty: 14 0RF
Rx Instructions:
START ON 09/29/2023, ONE TABLET DAILY. LAST DOSE TO BE TAKEN ON 10/05/2023
prednisone 10 mg tablet
30 mg PO DAILY 7 Days Qty: 21 0RF
Rx Instructions:
START ON 10/06/2023, LAST TABLET TO BE TAKEN ON 10/12/2023
Continued
finasteride 5 MG tablet
5 mg PO HS
simvastatin 10 MG tablet
10 mg PO HS
zolpidem 5 mg Tablet
2.5 mg PO HSPRN PRN (Reason: sleep)
Eliquis 5 mg Tablet
2.5 mg PO BID
Discharge Orders:
Discharge Patient (As Directed); Ordered 09/21/23
Ordered By: Christy Perez
Discharge Date and Time
Print Language: [place]
--- NOTE | 2023-09-21 16:00 | VNURNOTE ---
[facility] resumption of care completed in [facility] after review of chart.
--- NOTE | 2023-09-21 16:06 | CM ---
Patient seen, for discharge today. [facility] updated on patient discharge status. Patient on home O2. Patient reports he has transportation home with home oxygen. IMM reviewed, signed, placed in chart. CM will continue to follow for all discharge
planning needs.
Plan; home with [facility].
[2023-09-21 16:23] VITALS: BP 105/72
== END 2023-09-21 17:44 | disposition home health service (06) | DRG 196 ==
LOC: 4 EAST ACU 08:49
PROVIDERS: Registered Nurse; Student in an Organized Health Care Education/Training Program; ADMITTING PHYSICIAN Hospitalist; CONSULT PHYSICIAN Internal Medicine Critical Care Medicine; CONSULT PHYSICIAN Nuclear Medicine Nuclear Cardiology; EMERGENCY PHYSICIAN Emergency Medicine; FAMILY PHYSICIAN Internal Medicine
PROC: 0B9G8ZX Drainage of Left Upper Lung Lobe, Via Natural or Artificial Opening Endoscopic, Diagnostic (ICD-10-PCS; 2023-09-19)
PROC: 0B9F8ZX Drainage of Right Lower Lung Lobe, Via Natural or Artificial Opening Endoscopic, Diagnostic (ICD-10-PCS; 2023-09-19)
DX: J84.9 Interstitial pulmonary disease, unspecified (principal); I50.33 Acute on chronic diastolic (congestive) heart failure; J96.21 Acute and chronic respiratory failure with hypoxia; I13.0 Hypertensive heart and chronic kidney disease with heart failure and stage 1 through stage 4 chronic kidney disease, or unspecified chronic kidney disease; N17.9 Acute kidney failure, unspecified; I25.10 Atherosclerotic heart disease of native coronary artery without angina pectoris; N18.32 Chronic kidney disease, stage 3b; E78.5 Hyperlipidemia, unspecified; G47.00 Insomnia, unspecified; T46.2X5A Adverse effect of other antidysrhythmic drugs, initial encounter; Y92.9 Unspecified place or not applicable; E78.00 Pure hypercholesterolemia, unspecified; N40.0 Benign prostatic hyperplasia without lower urinary tract symptoms; R59.0 Localized enlarged lymph nodes; E87.5 Hyperkalemia; K59.00 Constipation, unspecified; J84.10 Pulmonary fibrosis, unspecified; I48.0 Paroxysmal atrial fibrillation; Z79.01 Long term (current) use of anticoagulants; Z99.81 Dependence on supplemental oxygen; Z87.442 Personal history of urinary calculi; Z95.2 Presence of prosthetic heart valve; Z85.51 Personal history of malignant neoplasm of bladder; Z90.5 Acquired absence of kidney; Z11.52 Encounter for screening for COVID-19; Z85.50 Personal history of malignant neoplasm of unspecified urinary tract organ
CPT/HCPCS: 88305; 71045; 71046; 80048; 80053; 83880; 84145; 84443; 84484; 85025; 85027; 86140; 87015; 87070; 87102; 87116; 87205; 87252; 87278; 87502; 87811; 88112; 88342; 89051; 93005; 94640; 97116; 97162; 97167; 99285

== ENCOUNTER → 2023-10-12 14:22 | Outpatient (REF) | payer OTHER, SELFPAY ==
[2023-10-15 01:20] LABS: ANA, IgG Reflex to HEp-2 None Detected (None Detected)
[2023-10-15 01:51] LABS: CCP Antibody IgG/IgA 4 Units (0-19)
== END ==
LOC: REG 14:22
PROVIDERS: ATTENDING PHYSICIAN Internal Medicine Pulmonary Disease; FAMILY PHYSICIAN Internal Medicine; OTHER PHYSICIAN Internal Medicine Critical Care Medicine
DX: J84.9 Interstitial pulmonary disease, unspecified (principal)
CPT/HCPCS: 36415; 86038; 86200; 86430

== ENCOUNTER 2023-10-30 06:49 | Day surgery (SDC) | payer OTHER, SELFPAY ==
[2023-10-30] VITALS (10 sets, daily range): BP systolic 128–185; BP diastolic 80–109; BMI 26.5
[2023-10-30] MEDS: CYSVIEW KIT 100 MG INTRAVES (11:50)
[2023-10-30] MEDS: NORMOSOL-R 1000 IV (12:24)
--- NOTE | 2023-10-30 12:30 | PTCARENOTE ---
Patient came in on 3 L o2 NC. Order obtained for 3 L O2 NC from Dr. Wilburn. OR team made aware.
[2023-10-30] MEDS: SYRINGE NON-PUMP 50 ML IRRIG ×2 (13:49→13:50)
[2023-10-30] MEDS: SYRINGE NON-PUMP 50 MG IRRIG ×2 (13:49→13:50)
[2023-10-30] MEDS: DETROL LA 4 MG PO (14:11)
== END 2023-10-30 16:07 | disposition home or self-care (01) ==
LOC: SDS 06:49
PROVIDERS: ATTENDING PHYSICIAN Specialist
DX: C67.8 Malignant neoplasm of overlapping sites of bladder (principal)
CPT/HCPCS: 52235; C9738; 88307; 88342; A9589; J9201

== ENCOUNTER 2023-11-13 16:13 | Emergency (ER) | payer OTHER, SELFPAY ==
[2023-11-13 16:15] VITALS: BP 134/100
[2023-11-13 16:47] LABS: % Basophils 0.5 % (0-2); % Eosinophils 0.3 % (0-6); % Immature Granulocytes 0.7 % (0-0.5); % Lymphocytes 9.2 % (20.5-51.1); % Monocytes 3.1 % (1.7-9.3); % Neutrophils 86.2 % (42.2-75.2); Absolute Lymphocytes 0.6 10^3/uL (1.2-3.4); Absolute Monocytes 0.2 10^3/uL (0.1-0.6); Absolute Neutrophils 5.2 10^3/uL (1.4-6.5); Hematocrit 41.2 % (39.0-52.0); Hemoglobin 13.8 g/dL (13.0-18.0); Mean Corp Hgb Conc. 33.5 g/dL (33.0-37.0); Mean Corpuscular Hgb 31.2 pg (27.0-31.0); Mean Corpuscular Volume 93.2 fL (80.0-94.0); Mean Platelet Volume 9.3 fL (7.4-10.4); Nucleated Red Blood Cells % 0 % (-); Platelet Count 144 10^3/uL (130-400); Red Blood Cell Count 4.42 10^6/uL (4.70-6.10); Red Cell Dist. Width 15.4 % (11.5-14.5); White Blood Cell Count 6.1 10^3/uL (4.8-10.8)
[2023-11-13 17:08] LABS: ALT (SGPT) 25 U/L (0-50); AST (SGOT) 33 U/L (17-59); Albumin 4.1 g/dl (3.5-5.0); Alkaline Phosphatase 85 U/L (38-126); Blood Urea Nitrogen 32 mg/dl (9-20); Calcium 9.3 mg/dl (8.4-10.2); Carbon Dioxide 26 mmol/L (22-30); Chloride 106 mmol/L (98-107); Glucose 138 mg/dl (70-99); Sodium 142 mmol/L (135-145); Total Bilirubin 0.8 mg/dl (0.2-1.3)
--- NOTE | 2023-11-13 17:37 | EDRN ---
Discharge instructions given to patient by JONO Ortiz. Verbalized understanding.
[2023-11-13 17:39] VITALS: BP 126/71
--- NOTE | 2023-11-13 17:47 | ED.GENMED ---
History of Present Illness
General
Chief Complaint: Heart Rate Problem
Source: patient
Exam Limitations: none
Time Seen by Provider: 11/13/23 17:31
Nursing documentation reviewed up to this point in time: agreed with
History of Present Illness
History of Present Illness:
88-year-old male with a history of A-fib on Eliquis, aortic stenosis, hyperlipidemia, renal cancer, presenting to the emergency department today with concerns of an episode of tachycardia. Patient reports that today he was in the office as his
kettle coordinator, finding out that he had cancer that had spread to his lungs. Patient states that today's appointment was very emotionally difficult for him, and he started to feel his heart race. Patient states that at the office, they noticed his
heart rate was in the 150s and he was sent here for further evaluation. Patient states that he now feels well and is requesting to go home. Patient states that all of his symptoms have resolved. Patient denies any palpitations, chest pain,
shortness of breath, dizziness, lightheadedness. Patient denies any fevers or chills, states he has been feeling well recently. Patient denies any calf swelling or pain in his lower extremities. Patient denies weakness.
Past History
Past History
ED Past Medical History: Arrthythmia (On Eliquis), Hypercholesterolemia, Other (Kidney stones) and Other (Recently diagnosed with interstitial lung disease 08/2023 on home oxygen 3 L/min)
ED Past Surgical History: Cardiac (Porcine valve replacement) and Other (Cystoscopy with ureteral stone removal, and stent placement)
Social History
Tobacco: Non-smoker
Alcohol: Occasional
Personal:
Living: with family
Employment: Retired
Family History
Family History: Negative CAD
Review of Systems
Review of Systems
All Other Systems: ROS reviewed and negative except as documented in HPI and ROS
Phy Exam
Physical Exam
Physical Exam:
General: Patient is well appearing and in no acute distress; non-toxic
Skin: Warm and dry, no rashes or lesions
Head: Normocephalic, atraumatic
Eyes: Sclera non-icteric. EOMs intact. PERRLA.
Cardiac: Regular rate and rhythm, systolic murmur noted. No tenderness palpation of external chest wall
Peripheral Vascular: No lower extremity swelling or edema, no overlying erythema.
Pulm: Normal respiratory effort, equal breath sounds bilaterally, no wheezes, rales, rhonchi.
Neuro: CN II-XII intact, no focal neurologic deficits.
Psychiatric: Appropriate mood and affect.
Course
Orders/Labs/Results
Orders:
Orders
11/13/23 16:21
ECG [Electrocardiogram (*1)] Urgent
Reason for Study: Tachycardia
EKG- Treatment ONCE
11/13/23 16:39
CMP [Comprehensive Metabolic Panel] Urgent
Complete Blood Count/With Diff Urgent
Abnormal Lab Results
11/13/23
16:39
RBC 4.42 L 10^6/uL
(4.70-6.10)
MCH 31.2 H pg
(27.0-31.0)
RDW 15.4 H %
(11.5-14.5)
Absolute Lymphs (auto) 0.6 L 10^3/uL
(1.2-3.4)
Immature Gran % 0.7 H %
(0-0.5)
Neutrophils % 86.2 H %
(42.2-75.2)
Lymphocytes % 9.2 L %
(20.5-51.1)
BUN 32 H mg/dl
(9-20)
Creatinine 1.6 H mg/dL
(0.7-1.3)
Glucose 138 H mg/dl
(70-99)
11/13/23 16:39
11/13/23 16:39
Vital Signs
Initial and Last Documented VS:
Initial Vital Signs
Temp Pulse Resp BP Pulse Ox
97.7 F 106 20 134/100 95
11/13/23 16:15 11/13/23 16:15 11/13/23 16:15 11/13/23 16:15 11/13/23 16:15
Last Documented Vital Signs
Temp Pulse Resp BP Pulse Ox
97.7 F 87 20 126/71 97
11/13/23 16:15 11/13/23 17:39 11/13/23 17:39 11/13/23 17:39 11/13/23 17:39
MDM/Problems Addressed
Differential Diagnosis Includes:
ddx include rapid atrial fibrillation, sinus tachycardia, multifocal atrial tachycardia, anxiety, ACS
MDM/Problems Addressed:
Transient tachycardia:
88-year-old male with a history of metastatic cancer, A-fib on Eliquis, aortic stenosis, hyperlipidemia presenting emergency department today with a transient episode of tachycardia. Patient states that this occurred in office today with a visit
with his kettle coordinator and he was sent to the emergency department because they noted a heart rate of 150s. Patient felt nervous at this time. Patient reports that this quickly subsided. Patient requesting to go home. On physical examination,
patient is well-appearing, his vitals are stable, he is no longer tachycardic. He does have a systolic murmur noted on exam however he does have known aortic stenosis and this is likely what I am hearing. Looking at his lab work, his BUN and
creatinine are elevated but this is a chronic change for him and this is his baseline. His CBC is unremarkable. His EKG demonstrates normal sinus rhythm, no evidence of tachycardia. Does demonstrate known left axis deviation, patient states that
he follows closely with cardiology. Patient has no signs of DVT on exam. Patient feeling well back to his baseline. Patient stable for discharge, patient states that he has multiple follow-up appointments tomorrow in regards to his cancer with
Jez, also has a PET scan tomorrow.
Chronic conditions affecting care:
Metastatic cancer, A-fib on Eliquis, aortic stenosis
Acute Exacerbation and/or Progression of Chronic Illness:
n/a
*Pulse Oximetry
Patient hypoxic: no
*EKG
Interpreted by ED Provider?: Yes
EKG Intrepretation Date: 11/13/23
Interpretation: normal
Comparison EKG: changes noted (PACs no longer present)
Heart Rate: 94
Rate: normal
Rhythm: sinus
[place]: left axis deviation
Interval: long QT (This is noted on multiple previous EKGs)
QRS Pattern: left bundle branch block
Ischemia: no ischemia
*Critical Care Note
Total Time (30-74mins, 75-104mins- exclusive of procedures): Not Applicable
Data Reviewed
Review of Other/Old Records Reveals: Records (Reviewed discharge summary from 09/21/2023 patient was seen for hypoxia, did note interstitial lung disease and chronic kidney disease)
Source: patient and records
Prescriptions/Medications Considered But Not Given:
n/a
Further Testing Considered But Not Given:
n/a
Patient Management
Escalation/DeEscalation of care consider admission/obs:
Patient stable for discharge. Considering patient's history of A-fib, I did want to watch him on the monitor longer. Patient requesting to go home and requesting to sign out multiple times. Considering patient is currently asymptomatic, and is no
longer tachycardic, being discharged at this time is reasonable considering he is close outpatient follow-up. Return precautions discussed with patient, patient expressed understanding
ED Attending Note
-
Portions of this chart may have been created with voice recognition software.� Occasional wrong word or��sound alike� substitutions may have occurred due to the inherent limitations of voice recognition software.
Discharge Plan
Departure
Patient Disposition: Home (Routine Discharge)
Date of Disposition: 11/13/23
Time of Disposition: 17:34
Patient with high blood pressure during this ER visit?: Yes
Condition: Good
Discharge Problem:
Tachycardia
Instructions: Tachycardia, BLOOD PRESSURE
Prescriptions:
No Action
finasteride 5 MG tablet
5 mg PO HS
simvastatin 10 MG tablet
10 mg PO HS
zolpidem 5 mg Tablet
2.5 mg PO HSPRN PRN (Reason: sleep)
Eliquis 5 mg Tablet
2.5 mg PO BID
prednisone 20 mg tablet
20 mg PO DAILY
Rx Instructions:
START ON 09/29/2023, ONE TABLET DAILY. LAST DOSE TO BE TAKEN ON 10/05/2023
Osteo Bi-Flex
1 tab PO BID
Vitamin D3
1 tab PO DAILY
Activity Restrictions/Additional Instructions:
Please return to emergency department should you experience palpitations, chest pain, shortness of breath, dizziness, lightheadedness, or any other concerning signs or symptoms.
As discussed, please follow-up with your kettle coordinator tomorrow in the office and with your appointment with [facility]
Interventions
Interventions:
*Risk Screen - Suicide Last Done: 11/13/23 17:36
*General Assessment Last Done: 11/13/23 17:36
*Neglect/Abuse Screening Last Done: 11/13/23 17:36
ED- Fall Risk Assessment Last Done: 11/13/23 17:30
*ED COVID-19 Vaccine History Last Done: 11/13/23 17:30
*Nursing Disposition Last Done: 11/13/23 17:39
ED- Cardiac Assessment Last Done: 11/13/23 17:30
ED- Pulmonary Assessment Last Done: 11/13/23 17:30
Discharge Date and Time
Discharge Date/Time: 11/13/23 17:40
Print Language: MARSHALLESE
== END 2023-11-13 17:40 | disposition home or self-care (01) ==
LOC: EMR 16:13
PROVIDERS: EMERGENCY PHYSICIAN Emergency Medicine; FAMILY PHYSICIAN Internal Medicine
DX: R00.0 Tachycardia, unspecified (principal); E78.00 Pure hypercholesterolemia, unspecified; I35.0 Nonrheumatic aortic (valve) stenosis; I48.91 Unspecified atrial fibrillation; Z79.01 Long term (current) use of anticoagulants; Z85.528 Personal history of other malignant neoplasm of kidney; Z87.442 Personal history of urinary calculi; Z95.2 Presence of prosthetic heart valve; Z95.5 Presence of coronary angioplasty implant and graft
CPT/HCPCS: 99283; 80053; 85025; 93005

== ENCOUNTER → 2023-11-15 12:14 | Day surgery (SDC) | payer OTHER, SELFPAY ==
--- NOTE | 2023-11-15 14:44 | ITS.CL.IMPLP ---
Patient Services Specialist - Implant Loop
Implant Loop
Procedure Report:
Date of Procedure: October 26, 2023
Primary Care Provider: Dr. Brant Kruse
Procedure: Insertable Loop Recorder Implantation
Indication:
Atrial fibrillation
Procedure:
The patient was brought to the procedure area in a fasting state. The anterior chest was prepped and draped in standard sterile fashion. The fourth intercostal space along the left sternal border was identified and this area was anesthetized with 10
mL of 1% lidocaine. After gathering the skin in this area, a small punch incision was made at approx intercostal space 4-5 at left costo-sternal junction using the provided scalpel/punch tool. The loop recorder was loaded into the tunneling device.
A tunnel was created in the subcutaneous tissue at a 45� angle along the coronal plane away from the sternum and towards the left flank. The tunneling device was inverted and the plunger was depressed, inserting the loop recorder into the
subcutaneous space. The tunneling device was removed. Manual pressure provide hemostasis. Adequate signal was confirmed. The skin was closed with steri-strips. The estimated blood loss was < 1 cc. A clean dressing was placed over the wound.
There were no complications.
Implant:
Medtronic Reveal LINQ
Conclusion: Uncomplicated implantation of loop recorder.
Recommendation: Routine ILR care.
Copy: Dr. Brant Kruse
== END | disposition home or self-care (01) ==
LOC: CATH 12:14
PROVIDERS: ATTENDING PHYSICIAN Internal Medicine Cardiovascular Disease; FAMILY PHYSICIAN Internal Medicine
DX: I48.0 Paroxysmal atrial fibrillation (principal); I50.33 Acute on chronic diastolic (congestive) heart failure; N18.32 Chronic kidney disease, stage 3b; N40.1 Benign prostatic hyperplasia with lower urinary tract symptoms; Z85.51 Personal history of malignant neoplasm of bladder; Z79.01 Long term (current) use of anticoagulants
CPT/HCPCS: 33285; C1764

== ENCOUNTER → 2023-11-21 06:51 | Outpatient (REF) | payer OTHER, SELFPAY ==
[2023-11-21 08:51] LABS: % Basophils 2.1 % (0-2); % Eosinophils 2.6 % (0-6); % Immature Granulocytes 2.6 % (0-0.5); % Lymphocytes 29.2 % (20.5-51.1); % Monocytes 13.5 % (1.7-9.3); Absolute Basophils 0.1 10^3/uL (0-0.2); Absolute Eosinophils 0.2 10^3/uL (0-0.7); Absolute Immature Granulocytes 0.2 10^3/uL (0-0.05); Absolute Lymphocytes 1.7 10^3/uL (1.2-3.4); Absolute Monocytes 0.8 10^3/uL (0.1-0.6); Absolute Neutrophils 2.9 10^3/uL (1.4-6.5); Hematocrit 39.1 % (39.0-52.0); Mean Corp Hgb Conc. 33.2 g/dL (33.0-37.0); Mean Corpuscular Hgb 30.6 pg (27.0-31.0); Mean Platelet Volume 9.5 fL (7.4-10.4); Nucleated Red Blood Cells % 0 % (-); Platelet Count 254 10^3/uL (130-400); Red Blood Cell Count 4.25 10^6/uL (4.70-6.10); Red Cell Dist. Width 15.8 % (11.5-14.5); White Blood Cell Count 5.8 10^3/uL (4.8-10.8)
[2023-11-21 10:42] LABS: ALT (SGPT) 22 U/L (0-50); AST (SGOT) 30 U/L (17-59); Albumin 3.5 g/dl (3.5-5.0); Alkaline Phosphatase 64 U/L (38-126); Blood Urea Nitrogen 25 mg/dl (9-20); Calcium 9.1 mg/dl (8.4-10.2); Carbon Dioxide 27 mmol/L (22-30); Chloride 107 mmol/L (98-107); Glucose 85 mg/dl (70-99); Potassium 4.5 mmol/L (3.5-5.1); Sodium 142 mmol/L (135-145); Total Bilirubin 0.7 mg/dl (0.2-1.3); Total Protein 6.2 g/dl (6.3-8.2); eGFR 38.78
== END ==
LOC: REG 06:51
PROVIDERS: ATTENDING PHYSICIAN Internal Medicine Hematology & Oncology; FAMILY PHYSICIAN Internal Medicine
DX: C65.2 Malignant neoplasm of left renal pelvis (principal)
CPT/HCPCS: 36415; 80053; 85025

== ENCOUNTER → 2023-11-27 06:40 | Outpatient (REF) | payer OTHER, SELFPAY | LOC: RAD 06:40 | PROVIDERS: ATTENDING PHYSICIAN Nurse Practitioner Acute Care; OTHER PHYSICIAN Internal Medicine; OTHER PHYSICIAN Internal Medicine Cardiovascular Disease; OTHER PHYSICIAN Internal Medicine Critical Care Medicine; OTHER PHYSICIAN Internal Medicine Hematology & Oncology; OTHER PHYSICIAN Specialist; REFERRING PHYSICIAN Internal Medicine Pulmonary Disease | DX: J84.9 Interstitial pulmonary disease, unspecified (principal) | CPT/HCPCS: 71250 ==

== ENCOUNTER → 2023-12-07 07:30 | Outpatient (REF) | payer OTHER, SELFPAY ==
[2023-12-07 08:00] VITALS: BP 134/91; BP_SYST 79
[2023-12-07] MEDS: ANCEF 10 IV (08:23)
--- NOTE | 2023-12-07 09:58 | W.PN.UPDATE ---
Update Note
Progress Note Update
Pt seen in IR for port placement. Hx atrial fibrillation, arrythmias post multiple ablations. Discontinued amiodarone last hospitalization secondary to concern for pulm toxicity. During advancement of peel-away sheath, went into narrow tachycardia
160s-170s. Sheath was removed, wire was removed, catheter was retracted to RIJ. Carotid massage and valsalva maneuver, multiple attempts without change. Pt aware of rate, anxious but otherwise asymptomatic. Adenosine was given 6mg, repeat 6mg, then
12mg with persistent tachycardia. Outpatient emergency response was initiated. Tachycardia subsided immediately after obtaining EKG, no additional intervention in IR.
== END ==
LOC: RADI 07:30
PROVIDERS: ATTENDING PHYSICIAN Internal Medicine Hematology & Oncology; FAMILY PHYSICIAN Internal Medicine
DX: C65.2 Malignant neoplasm of left renal pelvis (principal); I48.91 Unspecified atrial fibrillation
CPT/HCPCS: 36561; 76937; 77001; 93005; 99152; 99153; J0153

== ENCOUNTER 2023-12-07 09:46 | Emergency (ER) | payer OTHER, SELFPAY ==
[2023-12-07 09:47] VITALS: BP 140/89
--- NOTE | 2023-12-07 09:48 | ED.GENMED ---
History of Present Illness
General
Chief Complaint: Heart Rate Problem
Time Seen by Provider: 12/07/23 09:48
History of Present Illness
History of Present Illness:
HPI: The patient was in interventional radiology earlier today and developed palpitations. He was felt to be in SVT. He was given adenosine 3 times but rates and rhythm remained abnormal and was sent here for further evaluation. He states he is
still taking Eliquis for atrial fibrillation. Upon arrival in the emergency department he was in a sinus rhythm in the 80s.
EXAM:
GENERAL: Well appearing in no distress
HEENT: Moist oral mucosa
CARDIOVASCULAR: No murmurs, normal heart rate, regular rhythm, No chest wall tenderness
PULMONARY: No respiratory distress, breath sounds are clear and equal
ABDOMEN: Soft with no peritoneal signs, no tenderness
NEUROLOGIC: Excellent strength all extremities, no coordination deficits
PSYCHIATRIC: Appropriate mental status, normal insight and judgement
EXTREMITIES: Nontender, no edema, moves all extremities equally
SKIN: No rash, no lesions, bandage noted over the right anterior chest wall
TIME OF INITIAL ENCOUNTER: 9:50 AM
NUMBER AND COMPLEXITY OF PROBLEMS ADDRESSED AT THE ENCOUNTER
� Chronic conditions affecting care: Atrial fibrillation, CKD
� Acute Exacerbation and/or Progression of Chronic Illness: This an acute exacerbation of a recurring problem
� Differential Diagnosis includes: Paroxysmal atrial fibrillation, SVT, other dysrhythmia, atrial tachycardia, electrolyte abnormality
AMOUNT AND/OR COMPLEXITY OF DATA TO BE REVIEWED AND ANALYZED
� I performed an independent evaluation of and my interpretation is:
EKG: Sinus 87, occasional PACs, LVH
CT:
X-rays:
Laboratory Studies: CBC and chemistries are relatively unremarkable other than borderline renal insufficiency
Other:
� Review of other/old records: I reviewed records, the patient was seen here with paroxysmal atrial fibrillation 11/13/2023
� Clinical information was obtained by an independent historian:
� Prescriptions/Medications Considered but not given:
� Further testing considered but not performed:
RISK OF COMPLICATIONS AND/OR MORBIDITY OR MORTALITY OF PATIENT MANAGEMENT
� Social determinants of health affecting care: Lives at home
� Discussion with other providers: I spoke to Dr. AMILCAR Reynoso�patient cannot take amiodarone. He has had issues with bradycardia in the past therefore cannot safely use digoxin. Consideration for Tikosyn however he does have some
borderline renal deficiency. The patient has a Linq device.
� Escalation of care including admission/observation vs risk of discharge considered: I also spoke to Dr. Acevedo for consideration of attempting port placement again�DrKale Reynoso did evaluate in the ED and recommends attempting the
placement of the port again. The patient remained sinus in the emergency department.
Past History
Past History
ED Past Medical History: Arrthythmia (On Eliquis), Hypercholesterolemia, Other (Kidney stones) and Other (Recently diagnosed with interstitial lung disease 08/2023 on home oxygen 3 L/min)
ED Past Surgical History: Cardiac (Porcine valve replacement) and Other (Cystoscopy with ureteral stone removal, and stent placement)
Social History
Tobacco: Non-smoker
Alcohol: Occasional
Personal:
Living: with family
Employment: Retired
Family History
Family History: Negative CAD
Phy Exam
Physical Exam
Physical Exam:
See HPI
Course
Orders/Labs/Results
Orders:
Orders
12/07/23 09:48
Electrocardiogram (*1) Urgent
Reason for Study: Tachycardia
EKG- Treatment ONCE
12/07/23 10:03
CMP [Comprehensive Metabolic Panel] Urgent
Complete Blood Count/With Diff Urgent
12/07/23 11:37
Consult Interventional Radiology [IRAD CONSULT] Urgent
Consulting Provider: Juan Antonio Acevedo
Was physician already notified: Yes
Reason for Consult/Procedure: port placement
Acknowledgement that appropriate orders are entered: Yes
Abnormal Lab Results
12/07/23
10:03
RBC 4.23 L 10^6/uL
(4.70-6.10)
Hgb 12.9 L g/dL
(13.0-18.0)
Hct 38.3 L %
(39.0-52.0)
RDW 15.6 H %
(11.5-14.5)
Abs Immat Gran (auto) 0.1 H 10^3/uL
(0-0.05)
Immature Gran % 0.6 H %
(0-0.5)
Chloride 109 H mmol/L
(98-107)
Carbon Dioxide 21 L mmol/L
(22-30)
BUN 28 H mg/dl
(9-20)
Calcium 8.1 L mg/dl
(8.4-10.2)
Total Protein 5.9 L g/dl
(6.3-8.2)
Albumin 3.3 L g/dl
(3.5-5.0)
12/07/23 10:03
12/07/23 10:03
Vital Signs
Initial and Last Documented VS:
Initial Vital Signs
BP
140/89
12/07/23 09:47
Last Documented Vital Signs
Temp Pulse Resp BP Pulse Ox
98 F 82 14 122/91 94
12/07/23 12:32 12/07/23 12:32 12/07/23 12:32 12/07/23 12:32 12/07/23 12:32
*Critical Care Note
Total Time (30-74mins, 75-104mins- exclusive of procedures): Not Applicable
ED Attending Note
-
Portions of this chart may have been created with voice recognition software.� Occasional wrong word or��sound alike� substitutions may have occurred due to the inherent limitations of voice recognition software.
Discharge Plan
Departure
Patient Disposition: Home (Routine Discharge)
Date of Disposition: 12/07/23
Time of Disposition: 12:08
Patient with high blood pressure during this ER visit?: Yes
Discharge Problem:
Paroxysmal atrial fibrillation
Prescriptions:
No Action
finasteride 5 MG tablet
5 mg PO HS
simvastatin 10 MG tablet
10 mg PO HS
Eliquis 5 mg Tablet
2.5 mg PO BID
prednisone tablet
10 tab PO DAILY
Referrals:
Brant Kruse MD [Family Provider] -
Richardson Ring MD [Active] - 01/29/24 11:20 am (You have a cardiology follow-up appointment at the [place] office. Please call with questions)
Juan Antonio Reynoso MD [Active] - Follow up in 2-3 days
Activity Restrictions/Additional Instructions:
You were seen by Dr. Reynoso, utility mechanic supervisor. He feels it is reasonable for interventional radiology to try the procedure again. Follow-up with Dr. Reynoso as an outpatient. Continue your medications. Return here if worse or any other concerns.
Interventions
Interventions:
*Risk Screen - Suicide Last Done: 12/07/23 09:49
*General Assessment Last Done: 12/07/23 09:49
*Neglect/Abuse Screening Last Done: 12/07/23 09:49
ED- Fall Risk Assessment Last Done: 12/07/23 09:55
ED- Cardiac Assessment Last Done: 12/07/23 09:55
ED- Pulmonary Assessment Last Done: 12/07/23 09:55
Discharge Date and Time
Print Language: PAKISTANI
[2023-12-07 09:49] VITALS: BP 140/89
[2023-12-07 10:00] VITALS: BP 135/86
[2023-12-07 10:33] LABS: % Basophils 0.8 % (0-2); % Eosinophils 1.7 % (0-6); % Immature Granulocytes 0.6 % (0-0.5); % Lymphocytes 28.1 % (20.5-51.1); % Monocytes 8.1 % (1.7-9.3); % Neutrophils 60.7 % (42.2-75.2); Absolute Basophils 0.1 10^3/uL (0-0.2); Absolute Eosinophils 0.1 10^3/uL (0-0.7); Absolute Immature Granulocytes 0.1 10^3/uL (0-0.05); Absolute Lymphocytes 2.2 10^3/uL (1.2-3.4); Absolute Monocytes 0.6 10^3/uL (0.1-0.6); Absolute Neutrophils 4.8 10^3/uL (1.4-6.5); Hematocrit 38.3 % (39.0-52.0); Hemoglobin 12.9 g/dL (13.0-18.0); Mean Corp Hgb Conc. 33.7 g/dL (33.0-37.0); Mean Corpuscular Hgb 30.5 pg (27.0-31.0); Mean Corpuscular Volume 90.5 fL (80.0-94.0); Mean Platelet Volume 9.7 fL (7.4-10.4); Nucleated Red Blood Cells % 0 % (-); Platelet Count 170 10^3/uL (130-400); Red Blood Cell Count 4.23 10^6/uL (4.70-6.10); Red Cell Dist. Width 15.6 % (11.5-14.5); White Blood Cell Count 7.9 10^3/uL (4.8-10.8)
[2023-12-07 10:49] LABS: ALT (SGPT) 19 U/L (0-50); AST (SGOT) 30 U/L (17-59); Albumin 3.3 g/dl (3.5-5.0); Alkaline Phosphatase 63 U/L (38-126); Blood Urea Nitrogen 28 mg/dl (9-20); Calcium 8.1 mg/dl (8.4-10.2); Carbon Dioxide 21 mmol/L (22-30); Chloride 109 mmol/L (98-107); Glucose 99 mg/dl (70-99); Potassium 3.5 mmol/L (3.5-5.1); Sodium 141 mmol/L (135-145); Total Bilirubin 0.8 mg/dl (0.2-1.3); Total Protein 5.9 g/dl (6.3-8.2)
--- NOTE | 2023-12-07 10:49 | CON.CAR ---
Consultation
Consultation Request
Date/Time Consultation Performed: 12/07/23
Requesting Provider: Dr. Boyd
Performing Provider: Lucia Granda PA-C for Dr. AMILCAR Reynoso
Reason for Consultation: afib
Medical History
-
Chief Complaint: afib
History of Present Illness:
Patient is an 88-year-old male with past medical history of aortic valve replacement in 2007, paroxysmal A-fib/a flutter/A. tach status post 3 ablations. He was previously on sotalol, however failed with breakthrough. He was then transitioned to
amiodarone 01/2022. He then had issues with shortness of breath and amiodarone was stopped 09/12/23 due to concerns for Amio lung toxicity. He reports he had a second opinion at [facility] and they noted 2 cm shadowing on lung imaging. He has history of
bladder cancer status post left robotic nephro ureterectomy in 2022 with several bladder tumor removal surgeries. 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 He is
scheduled to start immunotherapy with Keytruda 12/19/2023. He is followed by Dr. Rubalcava. Today he presented for outpatient port placement in IR, however during procedure went into rapid A-fib in the 160s. He was symptomatic with this. Rapid
response was called and he was transferred to ER. He received adenosine x 1 and heart rates now appear to be back in sinus rhythm with frequent ectopy. He reports 1 additional episode of A-fib 11/13/23 with rapid heart rates in the 160s, and in the
emergency room heart rates improved without intervention. He underwent loop recorder placement 11/15/23. He is not chronically on beta-nelia due to underlying lung disease. He is not on calcium channel nelai due to baseline borderline blood
pressures. Cardiology consulted for evaluation. Currently off Eliquis for procedure. Baseline creatinine approximately 1.5-1.7.
PMH:
Interstitial lung disease by CT 09/11/23
Paroxysmal afib/aflutter/atach
s/p PVI 10/08/2019
s/p PVI, posterior wall ablation, mitral annular flutter ablation 11/17/2020
s/p posterior L atrial wall ablation, right atrial tachycardia ablation 06/30/2021
Failed sotalol
Chronic amiodarone therapy from 01/2022 until 09/12/23, stopped due to amio lung toxicity
s/p Medtronic loop recorder 11/15/23
Chronic anticoagulation with Eliquis
Bladder cancer s/p L robotic nephroureterectomy 09/20/2022, multiple TURBTs with new bladder tumors s/p resection
New metastatic disease to lung, scheduled to start keytruda 12/19/23
h/o nephrolithiasis with stone removal and stent placement
Chronic renal insufficiency
h/o aortic valve replacement 2007
HLD
BPH
Past Medical History
Past Medical History: Other (In HPI)
Past Surgical History: Cardiac (aortic valve replacement 2007, PVI 2019, PVI 2020, Ablation 2021,), Urological and Other (Robotic partial prostatectomy 02/2020, bilateral robotic inguinal hernia repair 04/2020)
Social History
Tobacco: Non-Smoker
Alcohol: Occasional
Personal:
Living: With Family
Employment: Retired
Family History
Family History: Reviewed & Not Pertinent
Allergies / Home Medications
Allergy/AdvReac Type Severity Reaction Status Date / Time
No Known Allergies Allergy Verified 12/05/23 09:59
�Medication �Instructions �Recorded �Confirmed �Type
finasteride 5 mg tablet 5 mg PO HS prostate 05/25/10 12/05/23 History
simvastatin 10 mg tablet 10 mg PO HS High cholesterol 09/04/19 12/05/23 History
apixaban 5 mg tablet (Eliquis) 2.5 mg PO BID Blood Clot 09/17/23 12/05/23 History
Prevention/Tx
prednisone 10 tab PO DAILY 12/05/23 12/05/23 History
Review of Systems
-
History Source: Patient
All other systems: Negative unless noted
Physical Exam
Vital Signs
Temp Pulse Resp BP Pulse Ox
97.9 F 86 11 135/86 94
12/07/23 09:49 12/07/23 10:00 12/07/23 10:00 12/07/23 10:00 12/07/23 10:00
Lab Results
12/07/23 10:03
12/07/23 10:03
Physical Exam
General: No Apparent Distress and Comfortable
HEENT: Normocephalic, Anicteric and Moist Mucous Membranes
Respiratory: Clear and Non Labored Respirations
Cardiac: S1/S2 and Regular Rhythm (with ectopy)
GI: Soft, Non Tender, Non Distended and Normal Bowel Sounds
Musculoskeletal: No Clubbing, No Cyanosis and No Edema
Skin: Warm and Dry
Neuro: AO x 3
Impression / Plan
-
Primary Recording Studio Set Up Worker: Dr. Tomi Ring
Assessment:
Afib with RVR
Presented for port placement in IRAD today
Interstitial lung disease by CT 09/11/23
Paroxysmal afib/aflutter/atach
s/p PVI 10/08/2019
s/p PVI, posterior wall ablation, mitral annular flutter ablation 11/17/2020
s/p posterior L atrial wall ablation, right atrial tachycardia ablation 06/30/2021
Failed sotalol
Chronic amiodarone therapy from 01/2022 until 09/12/23, stopped due to amio lung toxicity
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
Chronic anticoagulation with Eliquis
Bladder cancer s/p L robotic nephroureterectomy 09/20/2022, multiple TURBTs with new bladder tumors s/p resection
New metastatic disease to lung, scheduled to start keytruda 12/19/23
h/o nephrolithiasis with stone removal and stent placement
Chronic renal insufficiency
h/o aortic valve replacement 2007
HLD
BPH
ECHO 09/05/23: EF 60 to 65%, stage III diastolic dysfunction, mild concentric LVH, dilated RV, severely dilated atria, mild to moderate MR, well-seated #23 AVR with peak/mean gradients 10/5 mmHg, moderate TR, PAP 57 mmHg
Plan:
-Patient presented for outpatient port placement and [facility] today, as planned to start Keytruda 12/19/2023
-During procedure went into A-fib with RVR, heart rate in 160s. Patient was symptomatic. He was transferred to ER and given adenosine x 1 with improvement in heart rate. he reports an additional episode of afib with RVR 2 days prior to loop
implant 11/15/23
-Presently in sinus rhythm with frequent PACs. Patient feeling well
-Interrogate loop recorder in ER, placed 11/15/23.
-echo 08/2023 with results as above, EF preserved
-limited options for treatment of PAF. presented option of admission and initiation of tikosyn (dosing would need to be 125mcg Q12H based on current renal function) vs continued observation through loop recorder. he failed sotalol and with amio lung
toxicity. not BB candidate due to lung disease. not on CCB due to relative hypotension and bradycardia
-he is scheduled for follow up with Dr. Krishna 01/29/24 and can discuss further based on results of additional monitoring
-ok to proceed with port placement today
-d/w ER physician
Data Reviewed
-
EKG: Tracing Personally Visualized and interpreted
Medical Tests (Nuc Med, Echo etc): Report Reviewed by me
Labs: Labs Reviewed by me
Old Records: Reviewed
[2023-12-07 12:32] VITALS: BP 122/91; BP_SYST 82
== END 2023-12-07 14:30 | disposition home or self-care (01) ==
LOC: EMR 09:46
PROVIDERS: CONSULT PHYSICIAN Radiology Vascular & Interventional Radiology; EMERGENCY PHYSICIAN Emergency Medicine; FAMILY PHYSICIAN Internal Medicine; OTHER PHYSICIAN Internal Medicine Cardiovascular Disease
DX: I48.0 Paroxysmal atrial fibrillation (principal); R03.0 Elevated blood-pressure reading, without diagnosis of hypertension; N18.9 Chronic kidney disease, unspecified
CPT/HCPCS: 99285; 36561; 76937; 77001; 80053; 85025; 93005; 99152; 99153; C1788

== ENCOUNTER 2023-12-08 12:05 | Emergency (ER) | payer OTHER, SELFPAY ==
[2023-12-08 12:12] VITALS: BP 124/83
[2023-12-08 12:38] VITALS: BP 117/82
[2023-12-08 13:15] VITALS: BP 122/85
--- NOTE | 2023-12-08 13:15 | ED.GENMED ---
History of Present Illness
General
Chief Complaint: Breathing Problem
Source: patient, records and spouse
Time Seen by Provider: 12/08/23 12:31
History of Present Illness
History of Present Illness:
88-year-old male with past medical history of lung cancer, ILD, atrial fibrillation, aortic stenosis, hyperlipidemia presenting to the emergency department for evaluation of a sudden onset shortness of breath that occurred earlier this morning,
currently resolved, without any other associated symptoms. Patient was at this hospital yesterday getting a chest port placed and he contacted his doctors who recommended he come to the ER for a chest x-ray to evaluate for possible pneumothorax.
Patient denies any chest pain. He has not had any fevers or infectious symptoms. Denies any other concerns.
Past History
Past History
ED Past Medical History: Arrthythmia (On Eliquis), Cancer, COPD, Hypercholesterolemia, Valvular disease, Other (Kidney stones) and Other (Recently diagnosed with interstitial lung disease 08/2023 on home oxygen 3 L/min)
ED Past Surgical History: Cardiac (Porcine valve replacement), Orthopedic and Other (Cystoscopy with ureteral stone removal, and stent placement)
Social History
Tobacco: Non-smoker
Alcohol: Occasional
Drug: None
Personal:
Living: with family
Employment: Retired
Family History
Family History: Negative CAD
Review of Systems
Review of Systems
All Other Systems: ROS reviewed and negative except as documented in HPI and ROS
Phy Exam
Physical Exam
Physical Exam:
GENERAL: Alert , in no apparent distress, smiling and pleasant
HEAD: NCAT
EYE: conjunctiva clear
NECK: Supple
ENT: o/p clr, mmm.
CARDIAC: Regular rate and rhythm, intermittent PAC on telemetry
LUNGS: Clear breath sounds bilaterally, no acute respiratory distress, no wheezes/rales/rhonchi
ABDOMEN' soft, nontender, nondistended
NEUROLOGICAL: Alert and oriented
SKIN: Warm and dry, skin intact.
MUSCULOSKELETAL: well perfused. no edema
PSYCH: Normal and appropriate interaction.
Scores
Heart Failure Risk
Heart Failure Risk Score: Not Applicable
Heart Score for Chest Pain Patients
STEMI patient?: Not applicable
Withdrawal Assessment of Alcohol
Withdrawal Assessment Completed?: Not applicable
Course
Orders/Labs/Results
Orders:
Orders
12/08/23 12:31
CR Chest - 2 Views Urgent
Comment:
Reason For Exam: sudden onset SOB, port placement yesterday
12/08/23 13:09
Electrocardiogram (*1) Urgent
Reason for Study: Shortness of Breath
EKG- Treatment ONCE
12/08/23 13:16
Basic Metabolic Panel Urgent
Complete Blood Count/With Diff Urgent
Troponin I Urgent
12/08/23 14:09
Prednisone [Deltasone] 50 mg PO NOW STA
Abnormal Lab Results
12/08/23
13:16
RBC 4.35 L 10^6/uL
(4.70-6.10)
Hct 38.5 L %
(39.0-52.0)
RDW 15.4 H %
(11.5-14.5)
Absolute Lymphs (auto) 0.8 L 10^3/uL
(1.2-3.4)
Neutrophils % 80.5 H %
(42.2-75.2)
Lymphocytes % 11.3 L %
(20.5-51.1)
Chloride 108 H mmol/L
(98-107)
BUN 28 H mg/dl
(9-20)
Creatinine 1.5 H mg/dL
(0.7-1.3)
Glucose 113 H mg/dl
(70-99)
12/08/23 13:16
12/08/23 13:16
Vital Signs
Initial and Last Documented VS:
Initial Vital Signs
Temp Pulse Resp BP Pulse Ox
98.0 F 73 22 124/83 97
12/08/23 12:12 12/08/23 12:12 12/08/23 12:12 12/08/23 12:12 12/08/23 12:12
Last Documented Vital Signs
Temp Pulse Resp BP Pulse Ox
98.0 F 82 17 126/90 98
12/08/23 12:12 12/08/23 14:00 12/08/23 14:00 12/08/23 14:00 12/08/23 14:00
MDM/Problems Addressed
Differential Diagnosis Includes:
PTX, PE, pneumonia, CHF, ILD exacerbation, atypical ACS presentation, cardiac arrythmia
MDM/Problems Addressed:
88-year-old male presenting to the emergency department for evaluation of sudden onset SOB this morning. Symptoms now resolved and patient reports feeling much better. Currently tapering steroids, on 10mg presently. Spoke to Dr. Dunlap this AM who
wanted patient to go back up to 50mg since patient reported feeling better on higher dose steroids. Also recommended patient to come to ED for CXR to r/o PTX. CXR ordered and no PTX seen. Will check screening labs and EKG. Anticipate d/c home. Will
notify pulmonary.
Chronic conditions affecting care: COPD
*Radiology
Radiology exam reviewed: preliminary read by ED provider (no PTX)
*Pulse Oximetry
Patient hypoxic: no
*EKG
Interpreted by ED Provider?: Yes
Comparison EKG: no changes
Heart Rate: 81
Rate: normal
Rhythm: sinus arrhythmia
[place]: left axis deviation
Ischemia: no ischemia
*Prevention Rn Interpretation
Rate: normal
Rhythm: sinus arrhythmia
*Critical Care Note
Total Time (30-74mins, 75-104mins- exclusive of procedures): Not Applicable
Data Reviewed
Review of Other/Old Records Reveals: Labs and Testing
Patient Management
Discussion with other providers: Director Of Healthcare Systems
Escalation/DeEscalation of care consider admission/obs:
Patients work up unremarkable for any acute pathologies. No PTX. I notified Dr. Dunlap, patients awning maker and installer, who agrees with work up plan. Patient stable for d/c home and aware of return precautions
ED Attending Note
-
Portions of this chart may have been created with voice recognition software.� Occasional wrong word or��sound alike� substitutions may have occurred due to the inherent limitations of voice recognition software.
Discharge Plan
Departure
Patient Disposition: Home (Routine Discharge)
Date of Disposition: 12/08/23
Time of Disposition: 14:07
Patient with high blood pressure during this ER visit?: No
Discharge Problem:
Shortness of breath
Instructions: Shortness of Breath (Dyspnea) (DC)
Prescriptions:
No Action
finasteride 5 MG tablet
5 mg PO HS
simvastatin 10 MG tablet
10 mg PO HS
Eliquis 5 mg Tablet
2.5 mg PO BID
prednisone tablet
10 tab PO DAILY
Referrals:
Brant Kruse MD [Family Provider] -
Interventions
Interventions:
*Risk Screen - Suicide Last Done: 12/08/23 12:07
*General Assessment Last Done: 12/08/23 12:10
*ED COVID-19 Vaccine History Last Done: 12/08/23 12:10
*Nursing Disposition Last Done: 12/08/23 14:22
ED- Cardiac Assessment Last Done: 12/08/23 12:34
ED- Pulmonary Assessment Last Done: 12/08/23 12:34
Discharge Date and Time
Discharge Date/Time: 12/08/23 14:23
Print Language: ZIMBABWEAN
[2023-12-08 13:26] LABS: % Basophils 0.8 % (0-2); % Eosinophils 0.5 % (0-6); % Immature Granulocytes 0.5 % (0-0.5); % Lymphocytes 11.3 % (20.5-51.1); % Monocytes 6.4 % (1.7-9.3); % Neutrophils 80.5 % (42.2-75.2); Absolute Basophils 0.1 10^3/uL (0-0.2); Absolute Lymphocytes 0.8 10^3/uL (1.2-3.4); Absolute Monocytes 0.5 10^3/uL (0.1-0.6); Absolute Neutrophils 5.9 10^3/uL (1.4-6.5); Hematocrit 38.5 % (39.0-52.0); Hemoglobin 13.1 g/dL (13.0-18.0); Mean Corpuscular Hgb 30.1 pg (27.0-31.0); Mean Corpuscular Volume 88.5 fL (80.0-94.0); Mean Platelet Volume 9.5 fL (7.4-10.4); Nucleated Red Blood Cells % 0 % (-); Platelet Count 171 10^3/uL (130-400); Red Blood Cell Count 4.35 10^6/uL (4.70-6.10); Red Cell Dist. Width 15.4 % (11.5-14.5); White Blood Cell Count 7.3 10^3/uL (4.8-10.8)
[2023-12-08 13:44] LABS: Blood Urea Nitrogen 28 mg/dl (9-20); Carbon Dioxide 23 mmol/L (22-30); Chloride 108 mmol/L (98-107); Glucose 113 mg/dl (70-99); Potassium 4.5 mmol/L (3.5-5.1); Sodium 139 mmol/L (135-145); eGFR 45.06
[2023-12-08 13:47] LABS: Troponin I 0.025 ng/ml
[2023-12-08 14:00] VITALS: BP 126/90
[2023-12-08] MEDS: DELTASONE 50 MG PO (14:11)
== END 2023-12-08 14:23 | disposition home or self-care (01) ==
LOC: EMR 12:05
PROVIDERS: Physician Assistant Medical; EMERGENCY PHYSICIAN Student in an Organized Health Care Education/Training Program; FAMILY PHYSICIAN Internal Medicine
DX: R06.02 Shortness of breath (principal); I48.91 Unspecified atrial fibrillation; I35.0 Nonrheumatic aortic (valve) stenosis; E78.00 Pure hypercholesterolemia, unspecified; J44.9 Chronic obstructive pulmonary disease, unspecified; J84.9 Interstitial pulmonary disease, unspecified; Z45.2 Encounter for adjustment and management of vascular access device; Z85.118 Personal history of other malignant neoplasm of bronchus and lung; Z87.442 Personal history of urinary calculi; Z95.2 Presence of prosthetic heart valve; Z95.5 Presence of coronary angioplasty implant and graft
CPT/HCPCS: 99283; 71046; 80048; 84484; 85025; 93005

== ENCOUNTER → 2023-12-18 13:44 | Outpatient (REF) | payer OTHER, SELFPAY ==
[2023-12-18 14:56] LABS: % Basophils 0.3 % (0-2); % Eosinophils 0.1 % (0-6); % Immature Granulocytes 0.5 % (0-0.5); % Lymphocytes 7.9 % (20.5-51.1); % Neutrophils 89.2 % (42.2-75.2); Absolute Lymphocytes 0.6 10^3/uL (1.2-3.4); Absolute Monocytes 0.2 10^3/uL (0.1-0.6); Absolute Neutrophils 7.1 10^3/uL (1.4-6.5); Hematocrit 41.1 % (39.0-52.0); Hemoglobin 13.7 g/dL (13.0-18.0); Mean Corp Hgb Conc. 33.3 g/dL (33.0-37.0); Mean Corpuscular Hgb 29.9 pg (27.0-31.0); Mean Corpuscular Volume 89.7 fL (80.0-94.0); Mean Platelet Volume 9.9 fL (7.4-10.4); Nucleated Red Blood Cells % 0 % (-); Platelet Count 193 10^3/uL (130-400); Red Blood Cell Count 4.58 10^6/uL (4.70-6.10); Red Cell Dist. Width 15.3 % (11.5-14.5)
[2023-12-18 15:14] LABS: ALT (SGPT) 22 U/L (0-50); AST (SGOT) 28 U/L (17-59); Alkaline Phosphatase 80 U/L (38-126); Blood Urea Nitrogen 30 mg/dl (9-20); Carbon Dioxide 24 mmol/L (22-30); Chloride 104 mmol/L (98-107); Glucose 170 mg/dl (70-99); Potassium 4.7 mmol/L (3.5-5.1); Sodium 138 mmol/L (135-145); Total Bilirubin 0.9 mg/dl (0.2-1.3); Total Protein 6.7 g/dl (6.3-8.2)
[2023-12-18 15:31] LABS: Free T3 2.75 pg/ml (2.77-5.27); Free T4 1.23 ng/dl (0.78-2.19)
[2023-12-18 15:44] LABS: TSH 1.05 uIU/ml (0.47-4.68)
== END ==
LOC: REG 13:44
PROVIDERS: ATTENDING PHYSICIAN Internal Medicine Hematology & Oncology; FAMILY PHYSICIAN Internal Medicine; OTHER PHYSICIAN Specialist; REFERRING PHYSICIAN Internal Medicine Cardiovascular Disease
DX: C65.2 Malignant neoplasm of left renal pelvis (principal)
CPT/HCPCS: 36415; 80053; 84439; 84443; 84481; 85025

== ENCOUNTER 2023-12-24 16:36 | Inpatient (IN) | payer OTHER, SELFPAY ==
[2023-12-24] VITALS (42 sets, daily range): BP systolic 74–121; BP diastolic 53–92; PULSE 96–109; BMI 26.6
--- NOTE | 2023-12-24 11:24 | ED.GENMED ---
History of Present Illness
General
Chief Complaint: Heart Rate Problem
Source: patient
Exam Limitations: none
Time Seen by Provider: 12/24/23 10:54
History of Present Illness
History of Present Illness:
88 year old male with history of paroxysmal atrial fibrillation, renal cell cancer, recent diagnosis of lung cancer and initiation of immunotherapy last week presents erratic heart rate over the past several days. This morning he was awake and
noticed that his heart was racing in the 130s. He has instructions to take diltiazem 30 mg immediate release 2 tablets. He did this. 2 hours later he noticed his heart rate was 36. Several weeks ago, he had a loop recorder implanted. He
received a call from the residential therapist office today saying that his heart rate was low. He did feel somewhat lightheaded when his heart rate was low. He denies chest pain. He was on amiodarone in the past and developed interstitial lung disease.
He was also on sotalol. He has had multiple cardiac ablations as well as cardioversions.
Past History
Past History
ED Past Medical History: Arrthythmia (On Eliquis), Cancer, COPD, Hypercholesterolemia, Valvular disease, Other (Kidney stones) and Other (Recently diagnosed with interstitial lung disease 08/2023 on home oxygen 3 L/min)
ED Past Surgical History: Cardiac (Porcine valve replacement), Orthopedic and Other (Cystoscopy with ureteral stone removal, and stent placement)
Social History
Tobacco: Non-smoker
Alcohol: Occasional
Drug: None
Personal:
Living: with family
Employment: Retired
Family History
Family History: Negative CAD
Phy Exam
Physical Exam
Physical Exam:
General: Well-appearing male no acute respiratory
HEENT: Normocephalic atraumatic
Heart: Tachycardic and irregular
Lungs: Clear no obvious wheeze or rales
Extremities: No cyanosis or edema
Skin: Warm no rash or lesion
Neuro: alert and oriented, no facial asymmetry
Course
Orders/Labs/Results
Orders:
Orders
12/24/23 09:49
Electrocardiogram (*1) Urgent
Reason for Study: Bradycardia / Tachycardia
EKG- Treatment ONCE
12/24/23 11:14
IV Insert/Care/Rem.- Treatment PRN
12/24/23 11:16
Interrogate Pacemaker- Treatment ONCE
12/24/23 11:19
Complete Blood Count/With Diff Urgent
Comprehensive Metabolic Panel Urgent
TSH Reflex To Free T4 Urgent
12/24/23 11:23
0.9% Sodium Chloride 500 ml [Nss] 500 ml IV BOLUS
Diltiazem HCl [Cardizem] 10 mg IV NOW STA
12/24/23 11:30
Diltiazem 125 mg/125 ml Nss [Cardizem] 125 mg in 125 ml IV PER PROTOCOL
Initial dose in mg/hr, then titrate:: 5
Titrate to keep:: Heart rate 80-100 bpm
Titrate by mg/hr:: 5 mg/hr
Frequency of titrations (minutes):: 15
Maximum dose in mg/hr:: 15
Abnormal Lab Results
12/24/23
11:19
RBC 4.48 L 10^6/uL
(4.70-6.10)
RDW 15.1 H %
(11.5-14.5)
Abs Immat Gran (auto) 0.1 H 10^3/uL
(0-0.05)
Absolute Neuts (auto) 8.6 H 10^3/uL
(1.4-6.5)
Neutrophils % 81.1 H %
(42.2-75.2)
Lymphocytes % 11.4 L %
(20.5-51.1)
BUN 38 H mg/dl
(9-20)
Creatinine 1.7 H mg/dL
(0.7-1.3)
Glucose 101 H mg/dl
(70-99)
Total Protein 6.1 L g/dl
(6.3-8.2)
Albumin 2.3 L g/dl
(3.5-5.0)
12/24/23 11:19
12/24/23 11:19
Vital Signs
Initial and Last Documented VS:
Initial Vital Signs
Temp Pulse Resp BP Pulse Ox
98.0 F 50 16 100/53 98
12/24/23 09:58 12/24/23 09:58 12/24/23 09:58 12/24/23 09:58 12/24/23 09:58
Last Documented Vital Signs
Temp Pulse Resp BP Pulse Ox
98.0 F 93 23 100/65 93
12/24/23 09:58 12/24/23 14:35 12/24/23 14:35 12/24/23 14:30 12/24/23 14:35
MDM/Problems Addressed
Differential Diagnosis Includes:
Patient with erratic heart rate starting several days ago. Complicated history of atrial fibrillation having cardiac ablations/cardioversions. Currently he is in rapid A-fib with a heart rate in the 130s. Blood pressure 100/84. He has had
diltiazem already today by mouth. Reviewed prior hospital records. He had an echocardiogram done in August of this year which demonstrated ejection fraction of 60-65%. Will give fluid bolus as well as diltiazem bolus and infusion.
Patient recently had a loop recorder placed. Will interrogate the device
Chronic conditions affecting care: Arrhythmia
Acute Exacerbation and/or Progression of Chronic Illness:
Acute on chronic a-fib
*Critical Care Note
Total Time (30-74mins, 75-104mins- exclusive of procedures): Not Applicable
Update Note
Update Note:
Patient was started on diltiazem bolus and infusion. Blood pressure remained stable heart rate however remained high. Discussed with cardiology who saw the patient. He patient has complicated history with atrial fibrillation and now more recent
diagnosis of lung cancer. Patient seen by cardiology who recommended admission to medicine service
ED Attending Note
-
Portions of this chart may have been created with voice recognition software.� Occasional wrong word or��sound alike� substitutions may have occurred due to the inherent limitations of voice recognition software.
Discharge Plan
Departure
Patient Disposition: Admit
Date of Disposition: 12/24/23
Time of Disposition: 14:42
Admit to: Telemetry
Presentation/result/management discussed w/ accepting MD/DO: Hospitalist
Discharge Problem:
Atrial fibrillation
Prescriptions:
No Action
finasteride 5 MG tablet
5 mg PO HS
simvastatin 10 MG tablet
10 mg PO HS
Eliquis 5 mg Tablet
2.5 mg PO BID
prednisone tablet
10 tab PO DAILY
Referrals:
Brant Kruse MD [Family Provider] -
Interventions
Interventions:
*Risk Screen - Suicide Last Done: 12/24/23 09:58
*General Assessment Last Done: 12/24/23 11:12
*Neglect/Abuse Screening Last Done: 12/24/23 09:58
ED- Fall Risk Assessment Last Done: 12/24/23 11:12
*ED COVID-19 Vaccine History Last Done: 12/24/23 11:12
ED- Cardiac Assessment Last Done: 12/24/23 11:12
ED- Pulmonary Assessment Last Done: 12/24/23 11:12
Discharge Date and Time
Print Language: UKRAINIAN
[2023-12-24 11:36] LABS: % Basophils 0.4 % (0-2); % Eosinophils 0.8 % (0-6); % Immature Granulocytes 0.5 % (0-0.5); % Lymphocytes 11.4 % (20.5-51.1); % Monocytes 5.8 % (1.7-9.3); % Neutrophils 81.1 % (42.2-75.2); Absolute Eosinophils 0.1 10^3/uL (0-0.7); Absolute Immature Granulocytes 0.1 10^3/uL (0-0.05); Absolute Lymphocytes 1.2 10^3/uL (1.2-3.4); Absolute Monocytes 0.6 10^3/uL (0.1-0.6); Absolute Neutrophils 8.6 10^3/uL (1.4-6.5); Hematocrit 40.7 % (39.0-52.0); Hemoglobin 13.5 g/dL (13.0-18.0); Mean Corp Hgb Conc. 33.2 g/dL (33.0-37.0); Mean Corpuscular Hgb 30.1 pg (27.0-31.0); Mean Corpuscular Volume 90.8 fL (80.0-94.0); Mean Platelet Volume 9.6 fL (7.4-10.4); Nucleated Red Blood Cells % 0 % (-); Platelet Count 172 10^3/uL (130-400); Red Blood Cell Count 4.48 10^6/uL (4.70-6.10); Red Cell Dist. Width 15.1 % (11.5-14.5); White Blood Cell Count 10.5 10^3/uL (4.8-10.8)
[2023-12-24] MEDS: CARDIZEM 125 IV ×2 (11:43→20:34)
[2023-12-24] MEDS: NSS 500 IV (11:43)
[2023-12-24] MEDS: CARDIZEM 10 MG IV (11:43)
[2023-12-24 11:45] LABS: ALT (SGPT) 23 U/L (0-50); AST (SGOT) 31 U/L (17-59); Albumin 2.3 g/dl (3.5-5.0); Alkaline Phosphatase 59 U/L (38-126); Blood Urea Nitrogen 38 mg/dl (9-20); Calcium 9.1 mg/dl (8.4-10.2); Carbon Dioxide 25 mmol/L (22-30); Chloride 106 mmol/L (98-107); Glucose 101 mg/dl (70-99); Potassium 4.7 mmol/L (3.5-5.1); Sodium 139 mmol/L (135-145); Total Bilirubin 0.8 mg/dl (0.2-1.3); Total Protein 6.1 g/dl (6.3-8.2); eGFR 38.78
[2023-12-24 12:19] LABS: TSH Reflex To Free T4 1.52 uIU/ml (0.47-4.68)
--- NOTE | 2023-12-24 14:31 | CON.CAR ---
Addendum entered and electronically signed by Juan Antonio Goldman MD 12/24/23 17:09:
Attending addendum: patient seen and examined. PA note reviewed and findings confirmed by me. I met and spoke with patient and family. Briefly, this is an 88 y/o with a complex past medical history notable for AVR in 2007, atrial
fibrillation/flutter s/p 3 ablations. He was on amiodarone but developed pulmonary toxicity. He did not tolerate beta blockers well. There was some discussion of treating his atrial fibrillation with Tikosyn, however, he has a single kidney. He
is currently on chemotherapy with Keytruda and Padcev for treatment of metastatic transitional cell carcinoma. He presents to the hospital today with atrial fibrillation and rapid ventricular response. He had been scheduled to start Cardizem CD
but was worried about a low bp. He was instructed NOT to start the Cardizem CD but to take prn Cardizem 60mg. He reported fast HR over the weekend and took two doses of the Cardizem 60mg before coming to the hosptial for rapid HR
RECOMMENDATIONS:
- Cardizem IV infusion
- Cardizem 30mg po q 6 hours. Monitor HR and BP
- If he is tolerating Cardizem 30mg q 6; will start Cardizem CD 120 mg daily and can titrate further if needed
- I would defer any decision re: anti-arrhythmic to Dr. Ring
- will follow
Original Note:
Consultation
Consultation Request
Date/Time Consultation Requested: 12/24/2023
Date/Time Consultation Performed: 12/24/2023
Requesting Provider: Derek Melvin PA-C
Performing Provider: Jazmyne Slater PA-C for Dr. Juan Antonio Goldman
Reason for Consultation: Atrial fibrillation w/ RVR
Medical History
-
Chief Complaint: afib
History of Present Illness:
Patient is an 88-year-old male with past medical history of aortic valve replacement in 2007, paroxysmal A-fib/a flutter/A. tach status post 3 ablations, CKD, bladder cancer with new lung mets. He was previously on sotalol, however failed with
breakthrough. He was then transitioned to amiodarone 01/2022. He then had issues with shortness of breath/abnormal chest CT and amiodarone was stopped 09/12/23 due to concerns for Amio lung toxicity. He is not a ideal candidate for beta-nelia
due to underlying pulmonary issues. He reports he had a second opinion at [facility] and they noted 2 cm shadowing on lung imaging. He has history of bladder cancer status post left robotic nephroureterectomy in 2022 with several bladder tumor removal
surgeries. The lung nodule was determined to be metastasis from urothelial cancer by bronchoscopy and he was started on weekly immunotherapy with Padcev with Keytruda q 21 days. First dose was 12/19/2023. He is also on Prednisone 20 mg and Bactrim 3
times a week for prevention of pneumonitis/pneumonia. He is followed by Dr. Rubalcava.
He has had ongoing issues of palpitations and tachycardia. He underwent loop recorder implant 11/15/2023 for monitoring. He called our office last week complaining of intermittent episodes of chest pressure associated with tachycardia with heart
rates in the 140s to 170s which he noted with his pulse oximetry. Elevated heart rates and chest pressure had occurred a few times over the last few weeks however episodes seem to gotten worse after he was placed on prednisone and had his first
immunotherapy treatment with Padcev with Keytruda on 12/19/23. He was placed on as needed diltiazem 30 mg for elevated heart rate as outpt 12/21/23. Given reports of hypotension with BP's 90-100's/60's he was not placed on long-term dosing of
diltiazem. Patient reports he awoke around 4 AM this morning with palpitations and tachycardia as well as chest pressure. He took 60 mg of diltiazem short acting and 2 hours later at 6 AM he took an additional 30 mg. He noted improvement of chest
pressure but then found his pulse to be in the 30s and low 40s on his pulse oximetry. He felt tired and weak and it was recommended he come to emergency department. On presentation to emergency department patient was noted to be tachycardic and in
atrial flutter with variable AV block. Interrogation of Linq monitor has shown patient has been in and out of atrial fibrillation/flutter/tachycardia/SVT throughout the weekend. There was no documentation of nancy-arrhythmias. In ED he was given a
10 mg IV Bolus of Cardizem then started on Diltiazem drip which has been uptitrated to 15 mg/hour with majority of blood pressures running in the low 100s/60s. He currently is asymptomatic. He only complains of chest tightness or discomfort when
his heart rates exceed 140 bpm. He notes occasional dizziness and lightheadedness with his hypotension.
PMH:
Interstitial lung disease by CT 09/11/23
Paroxysmal afib/aflutter/atach
s/p PVI 10/08/2019
s/p PVI, posterior wall ablation, mitral annular flutter ablation 11/17/2020
s/p posterior L atrial wall ablation, right atrial tachycardia ablation 06/30/2021
Failed sotalol
Chronic amiodarone therapy from 01/2022 until 09/12/23, stopped due to amio lung toxicity
s/p [employer] loop recorder 11/15/23
Chronic anticoagulation with Eliquis
Bladder cancer s/p L robotic nephroureterectomy 09/20/2022, multiple TURBTs with new bladder tumors s/p resection
New metastatic disease to lung, scheduled to start keytruda 12/19/23
h/o nephrolithiasis with stone removal and stent placement
Chronic renal insufficiency
h/o aortic valve replacement 2007
HLD
BPH
Past Medical History
Past Medical History: Other (In HPI)
Past Surgical History: Cardiac (aortic valve replacement 2007, PVI 2019, PVI 2020, Ablation 2021,), Urological (s/p left nephroureterectmy 09/20/2022) and Other (Robotic partial prostatectomy 02/2020, bilateral robotic inguinal hernia repair 04/2020,
chemo port 12/08/2023)
Social History
Tobacco: Non-Smoker
Alcohol: Occasional
Personal:
Living: With Family
Employment: Retired
Family History
Family History: Reviewed & Not Pertinent
Allergies / Home Medications
Allergy/AdvReac Type Severity Reaction Status Date / Time
No Known Allergies Allergy Verified 12/24/23 10:01
�Medication �Instructions �Recorded �Confirmed �Type
finasteride 5 mg tablet 5 mg PO HS prostate 05/25/10 12/05/23 History
simvastatin 10 mg tablet 10 mg PO HS High cholesterol 09/04/19 12/05/23 History
apixaban 5 mg tablet (Eliquis) 2.5 mg PO BID Blood Clot 09/17/23 12/05/23 History
Prevention/Tx
prednisone 10 tab PO DAILY 12/05/23 12/05/23 History
Review of Systems
-
History Source: Patient
All other systems: Negative unless noted
Physical Exam
Vital Signs
Temp Pulse Resp BP Pulse Ox
98.0 F 98 14 102/72 94
12/24/23 09:58 12/24/23 13:55 12/24/23 13:55 12/24/23 13:45 12/24/23 13:15
GEN: No distress, awake, Ox3, lying in bed
HEENT: supple, anicteric, mmm
LUNGS: CTA bilaterally, no wheezes/rales
CV: Irreg irreg, S1/S2, 1/6 syst murmur
ABD: soft, BS+, NT/ND
EXT: No edema, clubbing or cyanosis
NEURO: Gross non-focal
SKIN: No rash, warm, dry
Lab Results
12/24/23 11:19
12/24/23 11:19
Impression / Plan
-
PCP:
Primary Applications Development Analyst: Dr. Tomi Ring
Assessment:
Presented with tachycardia, chest pressure
Afib/flutter with RVR
Paroxysmal afib/aflutter/atach
s/p PVI 10/08/2019
s/p PVI, posterior wall ablation, mitral annular flutter ablation 11/17/2020
s/p posterior L atrial wall ablation, right atrial tachycardia ablation 06/30/2021
Failed sotalol
Chronic amiodarone therapy from 01/2022 until 09/12/23, stopped due to amio lung toxicity
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
Chronic anticoagulation with Eliquis
Bladder cancer s/p L robotic nephroureterectomy 09/20/2022, multiple TURBTs with new bladder tumors s/p resection
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
h/o nephrolithiasis with stone removal and stent placement
Chronic renal insufficiency, baseline creat 1.6-1.8
h/o aortic valve replacement 2007
HLD
BPH
ECHO 09/05/23: EF 60 to 65%, stage III diastolic dysfunction, mild concentric LVH, dilated RV, severely dilated atria, mild to moderate MR, well-seated #23 AVR with peak/mean gradients 10/5 mmHg, moderate TR, PAP 57 mmHg
Plan:
-Presented 12/24/2023 with tachycardia/elevated heart rates associated with mild chest pressure and found to be atrial fibrillation/flutter
-Intermittent symptomatic atrial fibrillation/flutter/atrial tachycardia over the last 3 to 5 days on outpatient Linq monitor interrogation
-Patient received 10 mg IV diltiazem bolus and currently has IV diltiazem drip at 15 mg an hour running. Heart rate has improved. Patient currently is asymptomatic with out chest pain or shortness of breath
-limited options for treatment of PAF. He failed sotalol in the past. There was concern of amio lung toxicity with abnormal chest x-ray in August 2023. Not ideal BB candidate due to chronic lung disease. Not ideal candidate for Tikosyn given chronic
CKD
-He seems to be tolerating IV diltiazem. Would start with short acting diltiazem 30 mg 3 times daily and attempts of weaning drip off. Would hold for heart rate less than 50 or systolic blood pressure less than 90. Ideally would like to see
patient on long-term diltiazem if blood pressure allows.
-If patient should become hypotensive can challenge with fluid bolus.
-Will discuss if additional options are available with electrophysiology pending patient's response to starting diltiazem
-TSH 1.52
-Continue chronic anticoagulation with Eliquis 2.5 mg twice daily. (patient on lower dose given age and creatinine greater than 1.5)
-Continue prednisone and Bactrim Sunday, Sunday, Sunday per heme-onc given initiation of immunotherapy with Padcev and Keytruda. Follows with Dr. Rubalcava
-d/w ER physician, patient, nursing
Data Reviewed
-
EKG: Report Reviewed by me, Discussed with Physician, Discussed with Nurse and Discussed with Patient
Labs: Labs Reviewed by me, Discussed with Physician, Discussed with Nurse and Discussed with Patient
Old Records: Reviewed
--- NOTE | 2023-12-24 15:22 | HPS.HSE ---
Family Physician
-
Family Physician: Brant Kruse
Chief Complaint
-
Tachycardia/bradycardia post Keytruda and diltiazem
History of Present Illness
88-year-old male who reports he received Keytruda immunotherapy last week . He has has been having erratic heart rates over the past 2 to 3 weeks with some chest tightness. He reports heart rate as high as 130s. He took diltiazem 30 mg immediate
release 60 mg at 4 AM when his heart rate was 130 tablets he then noticed his heart rate dropped to 36 on his pulse ox. He reports at 6 AM he then took additional 30 mg of diltiazem due to heart rate 125. He then states at 9 AM while walking to
the bathroom he felt very lightheaded he then came back sat down and noticed that his blood pressure was 97/67 with a heart rate of 38. And received a call from cardiology today stating that he had no episode of bradycardia but they did notice
elevated heart rates and advised him to come to the ER for evaluation.
He had outpatient visit for Port placement to be able to start immunotherapy Keytruda on 12/19/2023. During port placement he went into rapid A-fib. He was transferred to the ER where he was given adenosine x 1 converting back to normal sinus
rhythm. He is not on beta-blockers due to ILD. He is not on calcium channel nelia due to borderline blood pressures.
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
oral steroid taper.
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
nephroureterectomy in 2022 with several bladder tumor removal surgeries HLD, renal calculi, amiodarone toxicity pneumonitis, ILD with chronic hypoxia on 3 L nasal cannula as needed, loop recorder 11/15/2023
Medical History
Past Medical History
Past Medical History: Reports Other
Additional Past Medical History:
Paroxysmal A-fib/a flutter/atrial tachycardia S/P 3 ablations on Eliquis
loop recorder 11/15/2023
Amiodarone toxicity pneumonitis
AVR porcine 2008,
CHF
Interstitial lung disease with chronic hypoxia on current 3 L nasal cannula now as needed per patient
CKD stage IIIb
Transitional cell cancer bladder cancer status post left robotic nephroureterectomy in 2022 with several bladder tumor removal surgeries
HLD
renal calculi
Past Surgical History: Reports Other
Additional Past Surgical History:
transitional cell cancer bladder cancer status post left robotic nephroureterectomy in 2022 with several bladder tumor removal surgeries
loop recorder 11/15/2023
A-fib/a flutter/atrial tachycardia S/P 3 ablations
Social History
Tobacco: Non-smoker
Alcohol: Occasional
Drug: None
Personal:
Living: With Family
Employment: Retired
Family History
Family History: Not pertinent
Allergies / Home Medications
Allergies reflects when Allergies were last updated in [employer].
Home Medications with original date entered in [employer]
Allergy/Medication List:
Allergies
Allergy/AdvReac Type Severity Reaction Status Date / Time
No Known Allergies Allergy Verified 12/24/23 10:01
Home Medications
finasteride 5 mg tablet 5 mg PO HS prostate 05/25/10
simvastatin 10 mg tablet 10 mg PO HS High cholesterol 09/04/19
apixaban 5 mg tablet (Eliquis) 2.5 mg PO BID Blood Clot Prevention/Tx 09/17/23
diltiazem HCl 30 mg tablet 30 mg PO DAILYPRN PRN racing heartbeat 12/24/23
prednisone 10 mg tablet 20 mg PO .TAPER 12/24/23
sulfamethoxazole 800 mg-trimethoprim 160 mg tablet (Bactrim DS) 1 tab PO MOWEFR 12/24/23
Review of Systems
-
History Source: Patient and Family ( and son at bedside)
A 12 point ROS was completed and negative except as noted: Yes
Constitutional: Denies Fever, Fatigue or Chills
EENT: Denies Sore Throat or Runny Nose
Respiratory: Denies Cough or Trouble Breathing
Cardiac: Reports Palpitations; Denies Chest Pain or Diaphoresis
Abdomen/GI: Denies Abdominal Pain, Nausea, Vomiting, Diarrhea, Constipated, Bloody Stools or Black Stools
: Denies Dysuria, Frequency, Flank Pain, Incontinence or Difficulty Voiding
Musculoskeletal: Denies Joint Pain or Edema
Skin: Denies Itching or Rash
Neurological: Reports Dizzy (With standing this a.m. after taking multiple doses of Cardizem); Denies Headache or Weakness
Endocrine: Reports No Symptoms
Hematologic/Lymphatic: Reports No Symptoms
Psych: Reports Calm
Physical Exam
Vital Signs
Vital Signs
Temp Pulse Resp BP Pulse Ox
98.0 F 93 23 100/65 93
12/24/23 09:58 12/24/23 14:35 12/24/23 14:35 12/24/23 14:30 12/24/23 14:35
Physical Exam
General: No Apparent Distress, Comfortable and Conversant; No Pain, Fever or Chills
HEENT: NormoCephalic, Anicteric, Moist mucous membranes, PERRLA, Neck Nontender and Other (94% RA)
Respiratory: Rhonchi (Fine rhonchi present throughout left lung field, right CTA); No Wheezes or Rales
Cardiac: S1/S2, Regular Rhythm and Other (Right upper chest wall incision patient has Linq device present); No Murmur, Rub, Gallop or Peripheral Edema
GI: Soft, Non Tender, Non Distended, Normal Bowel Sounds and No Hepatosplenomegaly
Rectal: Deferred by Provider
Genito-urinary: Deferred by me
Musculoskeletal: No Clubbing, No Cyanosis, No Edema and Other (Varicose veins to bilateral lower legs)
Skin: Warm and Dry; No Rash or Jaundice
Neuro: AO x 3, No Motor Deficits, Nonfocal/grossly intact, Cranial Nerves Intact and No Sensory Deficits; No Slurred Speech, Facial Droop, Tremors or Sedated
Psych: Calm
Laboratory Results
-
12/24/23 11:19
12/24/23 11:19
Laboratory Results
Total Bilirubin 0.8 mg/dl (0.2-1.3) 12/24/23 11:19
AST 31 U/L (17-59) 12/24/23 11:19
ALT 23 U/L (0-50) 12/24/23 11:19
Alkaline Phosphatase 59 U/L (38-126) 12/24/23 11:19
Impression/Plan
-
Impression/plan:
Admit to IVU
#Rapid A-fib with RVR/Paroxysmal afib/aflutter/atach
#Multiple ablation hx
#Recent rapid A-fib during port placement treated with adenosine x 1 conversion to NSR on 12/07/2023
-s/p PVI 10/08/2019
-s/p PVI, posterior wall ablation, mitral annular flutter ablation 11/17/2020
-s/p posterior L atrial wall ablation, right atrial tachycardia ablation 06/30/2021
-Failed sotalol
-Chronic amiodarone therapy from 01/2022 until 09/12/23, stopped due to AMIODARONE Lung Toxicity
- s/p Medtronic loop recorder 11/15/23
*Not on beta-blockers due to ILD he is not on calcium channel nelia due to borderline blood pressures*
-Continue Eliquis 2.5 mg twice daily
-Start 30 mg Diltiazem to take 4 times daily-will evaluate heart rates and blood pressure to see if patient stable to continue medication with plan to transition to 120 mg ER diltiazem per cardiology Dr. Goldman at bedside
-Will give first dose Diltiazem at 6 PM if SBP> 100 will then titrate down and off of diltiazem drip within 1 hour
-Tomorrow a.m. check orthostatics
#Aortic valve replacement porcine 2007
#Interstitial lung disease by CT 09/11/23 on 3 L nasal cannula as needed
-Patient follows with Dr. Faustin
-Patient is on chronic Bactrim 1 tab Sunday
-Patient currently on prednisone taper starting with 20 mg daily x 3 days then tapering down to finish on 01/05/2024
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
-scheduled to start next keytruda 12/19/23, then followed by every 3 weeks
# Transitional cell bladder cancer s/p L robotic Nephroureterectomy 09/20/2022
#Multiple TURBTs with new bladder tumors s/p resection
# CKD stage IIIb
#Creat 1.7 appears baseline
-Follow BMP
#hx Nephrolithiasis with stone removal and stent placement
#BPH
-Continue finasteride 5 mg at bedtime
#HLD
Continue simvastatin 10 mg at bedtime
DVT prophylaxis
Continue WET ROASTER Eliquis 2.5 mg twice daily
Full code
--- NOTE | 2023-12-24 16:40 | W.PN.UPDATE ---
Update Note
Progress Note Update
This is an addendum to the H&P written by Lucila German on 12/24/2023. Patient seen and examined independently with [employer]LL[employer] WRAPPING EXAMINER.
88-year-old male past medical history of paroxysmal atrial fibrillation/atrial flutter/atrial tachycardia status post ablations on Eliquis, amiodarone pneumonitis, AVR, CHF, interstitial lung disease on 3 L baseline, CKD 3B, additional cell bladder
cancer with lung metastases status post nephro ureterectomy in 2022 several bladder tumor removal surgeries, first dose of Keytruda last week hyperlipidemia, presenting with tachycardia and palpitations.
Patient found to be in atrial flutter with RVR with rate of 102 to 116. Labs are stable.
Cardizem drip started. Blood pressure initially 100 systolic, down to 80s to 90s. Cardiology recommended Cardizem 30 QID times daily with plan to taper off of Cardizem drip. Monitor blood pressure. IV fluid bolus will be needed if patient
becomes hypotensive. Cardiology following.
[2023-12-24] MEDS: CARDIZEM 30 MG PO ×2 (17:16→21:51)
[2023-12-24] MEDS: ELIQUIS 2.5 MG PO (20:34)
[2023-12-24] MEDS: LIPITOR 10 MG PO (21:50)
[2023-12-24] MEDS: PROSCAR 5 MG PO (21:50)
[2023-12-25] VITALS (20 sets, daily range): BP systolic 89–155; BP diastolic 66–137; PULSE 84–106; O2SAT 96; BMI 26.3
--- NOTE | 2023-12-25 02:07 | PTCARENOTE ---
Pt admitted to room 2245 Pt AAOx3 AFib low 100s on monitor. Pt started on Cardizem gtt and Cardizem PO( confirmed with Dr. Goldman) Pt denies pain, SOB or lightheadedness. Pt able to ambulate in the room with x 1 assist. Pt oriented to room. All
safety measures in place.
[2023-12-25 04:19] LABS: % Basophils 0.3 % (0-2); % Eosinophils 0.9 % (0-6); % Immature Granulocytes 0.3 % (0-0.5); % Lymphocytes 25.7 % (20.5-51.1); % Monocytes 8.3 % (1.7-9.3); % Neutrophils 64.5 % (42.2-75.2); Absolute Eosinophils 0.1 10^3/uL (0-0.7); Absolute Lymphocytes 2.2 10^3/uL (1.2-3.4); Absolute Monocytes 0.7 10^3/uL (0.1-0.6); Absolute Neutrophils 5.5 10^3/uL (1.4-6.5); Hematocrit 40.8 % (39.0-52.0); Hemoglobin 13.5 g/dL (13.0-18.0); Mean Corp Hgb Conc. 33.1 g/dL (33.0-37.0); Mean Corpuscular Hgb 29.9 pg (27.0-31.0); Mean Corpuscular Volume 90.3 fL (80.0-94.0); Mean Platelet Volume 9.8 fL (7.4-10.4); Nucleated Red Blood Cells % 0 % (-); Platelet Count 163 10^3/uL (130-400); Red Blood Cell Count 4.52 10^6/uL (4.70-6.10); Red Cell Dist. Width 14.9 % (11.5-14.5); White Blood Cell Count 8.6 10^3/uL (4.8-10.8)
[2023-12-25 04:20] LABS: Blood Urea Nitrogen 33 mg/dl (9-20); Calcium 8.8 mg/dl (8.4-10.2); Carbon Dioxide 24 mmol/L (22-30); Chloride 107 mmol/L (98-107); Estimated Creatinine Clearance 39 ml/min; Glucose 98 mg/dl (70-99); Potassium 4.5 mmol/L (3.5-5.1); Sodium 139 mmol/L (135-145); eGFR 45.06
[2023-12-25] MEDS: DELTASONE 20 MG PO (07:55)
[2023-12-25] MEDS: ELIQUIS 2.5 MG PO ×2 (07:55→20:11)
[2023-12-25] MEDS: CARDIZEM 30 MG PO ×4 (08:00→21:36)
--- NOTE | 2023-12-25 08:40 | PTCARENOTE ---
Assumed care of pt from night RN. Pt received awake and alert, Ox3.Cardizem drip infusing through RFA at 5 mg/hr. VSS, CM shows AF 90-100's, POX 96% on RA. He denies any pain or discomfort. Orthos neg this am.
--- NOTE | 2023-12-25 09:00 | W.PN.HOSP.TC ---
Addendum entered and electronically signed by Jose Vazquez MD 12/26/23 13:47:
Upon further review, patient does not have a history of CHF.
Original Note:
Today's Communication/Plan
-
see bold
Assessment / Plan
Assessment / Plan
HPI: 88-year-old male past medical history of paroxysmal atrial fibrillation/atrial flutter/atrial tachycardia status post ablations on Eliquis, amiodarone pneumonitis, AVR, CHF, interstitial lung disease on 3 L baseline, CKD 3B, additional cell
bladder cancer with lung metastases status post nephro ureterectomy in 2022 several bladder tumor removal surgeries, first dose of Keytruda last week hyperlipidemia, presenting with tachycardia and palpitations
#Rapid A-fib with RVR/Paroxysmal afib/aflutter/atach
#Multiple ablation hx
#Recent rapid A-fib during port placement treated with adenosine x 1 conversion to NSR on 12/07/2023
-s/p PVI 10/08/2019
-s/p PVI, posterior wall ablation, mitral annular flutter ablation 11/17/2020
-s/p posterior L atrial wall ablation, right atrial tachycardia ablation 06/30/2021
-Failed sotalol
-Chronic amiodarone therapy from 01/2022 until 09/12/23, stopped due to AMIODARONE Lung Toxicity
- s/p Medtronic loop recorder 11/15/23
*Not on beta-blockers due to ILD he is not on calcium channel nelia due to borderline blood pressures*
-Continue Eliquis 2.5 mg twice daily
-Currently on IV diltiazem drip, and diltiazem 30 mg 4 times daily
-Can stop diltiazem drip today as heart rate is in the 70s
-Appreciate cardiology input, plan for rate control
-Discharge tomorrow if cleared by cardiology
#Aortic valve replacement porcine 2007
#Interstitial lung disease by CT 09/11/23 on 3 L nasal cannula as needed
-Patient follows with Dr. Faustin
-Patient is on chronic Bactrim 1 tab Sunday
-Patient currently on prednisone taper starting with 20 mg daily x 3 days then tapering down to finish on 01/05/2024
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
-scheduled to start next keytruda 12/19/23, then followed by every 3 weeks
# Transitional cell bladder cancer s/p L robotic Nephroureterectomy 09/20/2022
#Multiple TURBTs with new bladder tumors s/p resection
# CKD stage IIIb
#Creat 1.7 appears baseline
-Follow BMP
#hx Nephrolithiasis with stone removal and stent placement
#BPH
-Continue finasteride 5 mg at bedtime
#HLD
Continue simvastatin 10 mg at bedtime
DVT prophylaxis�Eliquis
Full code
Total time spent to see the patient on the floor, examine the patient, review data and lab results, discuss treatment plan with patient, nursing staff around 38 minutes.
Physical Exam
General: No acute distress
HEENT: Normocephalic, Atraumatic, EOMI, MMM
Respiratory: Clear to Auscultation bilaterally
Cardiac: Normal S1/S2, irregularly irregular
GI: Soft, Nontender, Nondistended, Normal Bowel Sounds
Extremities: No Clubbing, Cyanosis, or Edema
Neuro: Nonfocal/Grossly Intact
Psych: Calm, Cooperative
Derm: No Visible lesions
Anticipated Discharge: Within 24 hours
Subjective/Interval History
-
Date of Service: December 25, 2023
Patient denies chest pain, shortness of breath, or palpitations. No lightheadedness. No fever, no vomiting.
Objective Data
-
Labs:
Laboratory Results
12/25/23
03:50
WBC 8.6
Hgb 13.5
Hct 40.8
Plt Count 163
Sodium 139
Potassium 4.5
Chloride 107
Carbon Dioxide 24
BUN 33 H
Creatinine 1.5 H
Glucose 98
Calcium 8.8
Vital Signs:
Vital Signs
Temp Pulse Resp BP Pulse Ox
98.1 F 95 16 103/66 96
12/25/23 08:19 12/25/23 08:19 12/25/23 08:19 12/25/23 08:00 12/25/23 08:33
I&O
12/24/23 12/25/23 12/26/23
06:59 06:59 06:59
Intake Total 350 / 350
Output Total 1265 / 1265
Balance -915 / -915
--- NOTE | 2023-12-25 11:07 | CM ---
Chart reviewed. Patient is independent of ADLS, lives with his in a 3 [address], 1 DAFNE, 0 DME. Patient no longer wears O2. Plan is for the patient to return home. CM to follow
--- NOTE | 2023-12-25 11:30 | PTCARENOTE ---
Vital signs downloaded from previous shift [id number]
--- NOTE | 2023-12-25 13:37 | PTCARENOTE ---
Pt OOB to chair, cardizem oral med tolerated, cardizem drip to be turned off tonight at 1900 if stable. HR presently afib controlled at 90, BP= 107/79
--- NOTE | 2023-12-25 14:00 | W.PN.CARDCBS ---
Today's Communication / Plan
-
Stop IV Cardizem. Continue Cardizem 30 p.o. every 6 with extra 30 mg as needed.
Continue Eliquis 2.5 mg p.o. twice daily.
Plan will be rate control of A-fib for now.
Impression / Plan
-
PCP:
Primary Web Communications Specialist: Dr. Tomi Ring
Assessment:
Presented with tachycardia, chest pressure
Afib/flutter with RVR
Paroxysmal afib/aflutter/atach
s/p PVI 10/08/2019
s/p PVI, posterior wall ablation, mitral annular flutter ablation 11/17/2020
s/p posterior L atrial wall ablation, right atrial tachycardia ablation 06/30/2021
Failed sotalol
Chronic amiodarone therapy from 01/2022 until 09/12/23, stopped due to amio lung toxicity
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
Chronic anticoagulation with Eliquis
Bladder cancer s/p L robotic nephroureterectomy 09/20/2022, multiple TURBTs with new bladder tumors s/p resection
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
h/o nephrolithiasis with stone removal and stent placement
Chronic renal insufficiency, baseline creat 1.6-1.8
h/o aortic valve replacement 2007
HLD
BPH
ECHO 09/05/23: EF 60 to 65%, stage III diastolic dysfunction, mild concentric LVH, dilated RV, severely dilated atria, mild to moderate MR, well-seated #23 AVR with peak/mean gradients 10/5 mmHg, moderate TR, PAP 57 mmHg
Plan:
-A-fib seems more rate controlled. Will stop IV Cardizem and continue Cardizem 30 p.o. every 6. Can use extra 30 mg p.o. as needed. He may need 60 mg p.o. every 6.
-Long-term plan will be discussed with Dr. Rign another ablation. For now we will continue a rate control strategy.
-TSH 1.52
-Continue chronic anticoagulation with Eliquis 2.5 mg twice daily. (patient on lower dose given age and creatinine greater than 1.5)
-Continue prednisone and Bactrim Sunday, Sunday, Sunday per heme-onc given initiation of immunotherapy with Padcev and Keytruda. Follows with Dr. Rubalcava
-d/w ER physician, patient, nursing
Progress Note - Web Communications Specialist
Subjective
Date of Service: December 25, 2023
still with some palpitations. No chest pains
Objective
Labs:
12/25/23 03:50
12/25/23 03:50
Labs
Hgb 13.5 g/dL (13.0-18.0) 12/25/23 03:50
Hct 40.8 % (39.0-52.0) 12/25/23 03:50
Plt Count 163 10^3/uL (130-400) 12/25/23 03:50
Sodium 139 mmol/L (135-145) 12/25/23 03:50
Potassium 4.5 mmol/L (3.5-5.1) 12/25/23 03:50
BUN 33 mg/dl (9-20) H 12/25/23 03:50
Creatinine 1.5 mg/dL (0.7-1.3) H 12/25/23 03:50
Glucose 98 mg/dl (70-99) 12/25/23 03:50
Vital Signs and I&O:
Vital Signs
Temp Pulse Resp BP Pulse Ox
97.7 F 94 16 107/79 96
12/25/23 10:51 12/25/23 13:30 12/25/23 10:51 12/25/23 12:08 12/25/23 10:51
Vital Signs
Temp Pulse Resp BP Pulse Ox
97.7 F 94 16 107/79 96
12/25/23 10:51 12/25/23 13:30 12/25/23 10:51 12/25/23 12:08 12/25/23 10:51
Intake & Output
12/23/23 12/24/23 12/25/23 12/26/23
06:59 06:59 06:59 06:59
Intake Total 350 / 350
Output Total 1265 / 1265
Balance -915 / -915
Physical Exam
Physical Exam
GEN: No distress, awake, Ox3
HEENT: supple, anicteric, mmm
LUNGS: CTA, no wheezes/rales
CV: irreg, S1/S2, 1/6 syst LSB, no gallop
ABD: soft, BS+, NT/ND
EXT: No edema
NEURO: Gross non-focal
SKIN: No rash
--- NOTE | 2023-12-25 16:10 | PTCARENOTE ---
The patient is aaox3, vital sign are stable. Aflutter is noted on the monitor. Cardizem gtt is running at 5ml/hr. He has no complaint of pain or SOB. However, he does state that he feels fatigued.
[2023-12-25] MEDS: COLACE PO (20:10)
[2023-12-25] MEDS: PROSCAR 5 MG PO (21:36)
[2023-12-25] MEDS: LIPITOR 10 MG PO (21:36)
[2023-12-26 03:49] VITALS: BP 112/81
[2023-12-26 04:00] VITALS: BMI 26.3
[2023-12-26] MEDS: COLACE 100 MG PO (04:02)
[2023-12-26 04:15] LABS: % Basophils 0.6 % (0-2); % Eosinophils 1.2 % (0-6); % Immature Granulocytes 0.4 % (0-0.5); % Lymphocytes 23.6 % (20.5-51.1); % Monocytes 8.2 % (1.7-9.3); Absolute Basophils 0.1 10^3/uL (0-0.2); Absolute Eosinophils 0.1 10^3/uL (0-0.7); Absolute Lymphocytes 1.9 10^3/uL (1.2-3.4); Absolute Monocytes 0.7 10^3/uL (0.1-0.6); Absolute Neutrophils 5.4 10^3/uL (1.4-6.5); Hematocrit 40.5 % (39.0-52.0); Hemoglobin 13.7 g/dL (13.0-18.0); Mean Corp Hgb Conc. 33.8 g/dL (33.0-37.0); Mean Corpuscular Hgb 30.9 pg (27.0-31.0); Mean Corpuscular Volume 91.2 fL (80.0-94.0); Mean Platelet Volume 9.9 fL (7.4-10.4); Nucleated Red Blood Cells % 0 % (-); Platelet Count 155 10^3/uL (130-400); Red Blood Cell Count 4.44 10^6/uL (4.70-6.10); Red Cell Dist. Width 14.7 % (11.5-14.5); White Blood Cell Count 8.2 10^3/uL (4.8-10.8)
[2023-12-26 04:38] LABS: Blood Urea Nitrogen 38 mg/dl (9-20); Carbon Dioxide 25 mmol/L (22-30); Chloride 105 mmol/L (98-107); Estimated Creatinine Clearance 39 ml/min; Glucose 101 mg/dl (70-99); Potassium 4.4 mmol/L (3.5-5.1); Sodium 138 mmol/L (135-145); eGFR 45.06
--- NOTE | 2023-12-26 05:31 | PTCARENOTE ---
Pt. AFib on monitor with HR 100-120 BPM. Pt stated that he feels better, but still with mild fatigue. Pt ambulates independently with RW outside the room. Pt instructed to use a call alexandre for assistance.
[2023-12-26 06:51] VITALS: BP 106/83
[2023-12-26] MEDS: CARDIZEM 30 MG PO ×4 (06:51→23:27)
--- NOTE | 2023-12-26 07:44 | PTCARENOTE ---
The patient's HR was in the 130's this morning. shift lab technician RN gave 30mg of PO PRN Cardizem at 0651.
--- NOTE | 2023-12-26 07:48 | W.PN.HOSP.TC ---
Today's Communication/Plan
-
See bold
Assessment / Plan
Assessment / Plan
HPI: 88-year-old male past medical history of paroxysmal atrial fibrillation/atrial flutter/atrial tachycardia status post ablations on Eliquis, amiodarone pneumonitis, AVR, interstitial lung disease on 3 L baseline, CKD 3B, additional cell bladder
cancer with lung metastases status post nephro ureterectomy in 2022 several bladder tumor removal surgeries, first dose of Keytruda last week hyperlipidemia, presenting with tachycardia and palpitations
#Rapid A-fib with RVR/Paroxysmal afib/aflutter/atach
#Multiple ablation hx
#Recent rapid A-fib during port placement treated with adenosine x 1 conversion to NSR on 12/07/2023
-s/p PVI 10/08/2019
-s/p PVI, posterior wall ablation, mitral annular flutter ablation 11/17/2020
-s/p posterior L atrial wall ablation, right atrial tachycardia ablation 06/30/2021
-Failed sotalol
-Chronic amiodarone therapy from 01/2022 until 09/12/23, stopped due to AMIODARONE Lung Toxicity
- s/p Medtronic loop recorder 11/15/23
*Not on beta-blockers due to ILD he is not on calcium channel nelia due to borderline blood pressures*
-Continue Eliquis 2.5 mg twice daily
-S/p IV diltiazem drip, now on on diltiazem 30 mg 4 times daily
-Patient now with RVR, diltiazem increased to 120 mg twice a day
-Cardiology considering cardioversion 12/27/2023, also will discuss with EP to initiate ADD
#Chronic heart failure with a preserved ejection fraction
#Aortic valve replacement porcine 2007
#Interstitial lung disease by CT 09/11/23 on 3 L nasal cannula as needed
-Patient follows with Dr. Faustin
-Patient is on chronic Bactrim 1 tab Sunday
-Patient currently on prednisone taper starting with 20 mg daily x 3 days then tapering down to finish on 01/05/2024
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
-scheduled to start next keytruda 12/19/23, then followed by every 3 weeks
# Transitional cell bladder cancer s/p L robotic Nephroureterectomy 09/20/2022
#Multiple TURBTs with new bladder tumors s/p resection
# CKD stage IIIb
#Creat 1.7 appears baseline
-Follow BMP
#hx Nephrolithiasis with stone removal and stent placement
#BPH
-Continue finasteride 5 mg at bedtime
#HLD
Continue simvastatin 10 mg at bedtime
DVT prophylaxis�Eliquis
Full code
Total time spent to see the patient on the floor, examine the patient, review data and lab results, discuss treatment plan with patient, nursing staff around 37 minutes.
Physical Exam
General: No acute distress
HEENT: Normocephalic, Atraumatic, EOMI, MMM
Respiratory: Clear to Auscultation bilaterally
Cardiac: Normal S1/S2, irregularly irregular
GI: Soft, Nontender, Nondistended, Normal Bowel Sounds
Extremities: No Clubbing, Cyanosis, or Edema
Neuro: Nonfocal/Grossly Intact
Psych: Calm, Cooperative
Derm: No Visible lesions
Anticipated Discharge: 24 - 48 hours
Subjective/Interval History
-
Date of Service: December 26, 2023
Patient reports substernal chest pain 2 out of 10 in intensity as well as palpitations. No fever, no vomiting.
Objective Data
-
Labs:
Laboratory Results
12/26/23
03:56
WBC 8.2
Hgb 13.7
Hct 40.5
Plt Count 155
Sodium 138
Potassium 4.4
Chloride 105
Carbon Dioxide 25
BUN 38 H
Creatinine 1.5 H
Glucose 101 H
Calcium 9.0
Vital Signs:
Vital Signs
Temp Pulse Resp BP Pulse Ox
98.2 F 118 18 106/83 95
12/26/23 07:29 12/26/23 07:00 12/26/23 07:29 12/26/23 06:51 12/26/23 07:29
I&O
12/25/23 12/26/23 12/27/23
06:59 06:59 06:59
Intake Total 350 / 350
Output Total 1265 / 1265 1150 / 1150
Balance -915 / -915 -1150 / -1150
[2023-12-26] MEDS: DELTASONE 20 MG PO (07:49)
[2023-12-26] MEDS: ELIQUIS 2.5 MG PO ×2 (07:49→19:17)
[2023-12-26] MEDS: FLUSH (NSS) 1 FLUSH IV (07:50)
[2023-12-26] MEDS: BACTRIM DS 800 MG/160 MG 1 TABLET PO (07:52)
--- NOTE | 2023-12-26 07:56 | PTCARENOTE ---
The patient is aaox3. His vital signs are stable. Rapid Afib is noted on the monitor with HR fluctuating between the 120s-140s. He states that he is not sob but does feel some discomfort in his right chest and rates it a 2/10 on scale. He describes
it as a 'pressure' discomfort and sometimes a slight 'pounding'. Tylenol offered but he refused. His regular scheduled 30mg po Cardizem given as ordered.
--- NOTE | 2023-12-26 09:39 | W.PN.CARDCBS ---
Addendum entered and electronically signed by Richardson Ring MD 12/26/23 17:15:
Patient seen, interviewed and examined by me.
Well-appearing, no acute distress
Irregular and tachycardic rate and rhythm with normal S1 and S2, no S3 no S4. There is a grade 1/6 apical holosystolic murmur and no rubs. PMI is normally placed.
Lungs are clear to auscultation bilaterally without wheezes rales or rhonchi.
Abdomen soft nontender nondistended with normoactive bowel sounds
Extremities show trace pretibial edema bilaterally no clubbing or cyanosis.
Neurologic exam is grossly nonfocal.
I met with the patient and his who is at bedside. We discussed his recurrent symptomatic atrial arrhythmias. We discussed management options which could include rate control, antiarrhythmic drug therapy or repeat ablation. With further
attempts at rate control or antiarrhythmic drug therapy I am concerned about developing symptomatic sick sinus syndrome as he has had significant bradycardia in the past resulting in fatigue. Therefore we would need to expect that he would likely
require permanent pacing with either of these 2 options being advanced. We discussed repeat ablation in more detail including a discussion regarding new ablation technologies, pulsed electric field ablation options. Overall they have decided to
move towards EP study and ablation as the next step.
- Will plan for cardioversion tomorrow morning
- We will attempt to expedite date for EP study and ablation.
All of their questions have been answered by me.
Addendum entered and electronically signed by Jazmyne Slater PA-C 12/26/23 14:58:
patient has atypical atrial flutter
Original Note:
Today's Communication / Plan
-
Consider cardioversion 12/27/2023
Continue diltiazem for rate control
Will discuss with EP initiation of ADD
Continue Eliquis
Impression / Plan
-
PCP:
Primary Forester Aide: Dr. Tomi Ring
Assessment:
Presented with tachycardia, chest pressure
Afib/flutter with RVR
Paroxysmal afib/aflutter/atach
s/p PVI 10/08/2019
s/p PVI, posterior wall ablation, mitral annular flutter ablation 11/17/2020
s/p posterior L atrial wall ablation, right atrial tachycardia ablation 06/30/2021
Failed sotalol
Chronic amiodarone therapy from 01/2022 until 09/12/23, stopped due to amio lung toxicity
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
Chronic anticoagulation with Eliquis
Bladder cancer s/p L robotic nephroureterectomy 09/20/2022, multiple TURBTs with new bladder tumors s/p resection
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
h/o nephrolithiasis with stone removal and stent placement
Chronic renal insufficiency, baseline creat 1.6-1.8
h/o aortic valve replacement 2007
HLD
BPH
ECHO 09/05/23: EF 60 to 65%, stage III diastolic dysfunction, mild concentric LVH, dilated RV, severely dilated atria, mild to moderate MR, well-seated #23 AVR with peak/mean gradients 10/5 mmHg, moderate TR, PAP 57 mmHg
Plan:
-Continues to be in A-fib seems heart rates reasonably controlled when patient sedentary however when patient ambulates or walks around heart rate elevates significantly and patient develops tightness/pressure in his chest. Controlled.
-Per review of Linq monitor patient was having PAF for several days in late November. However now seems to be persistent since 12/20/2023. Discussed undergoing cardioversion 12/27/2023
-Will discuss with EP regarding retrialing antiarrhythmic medication possibly with sotalol to help maintain sinus rhythm. (No interaction found with Bactrim). Unable to take amiodarone secondary to lung toxicity.
-Long-term plan would be to consider repeat ablation with pulsed field technology
-Continue Cardizem to 63 mg p.o. every 6. Can utilize an use extra 30 mg p.o. as needed every 6 hours if heart rate remains rapid.
-TSH 1.52
-Continue chronic anticoagulation with Eliquis 2.5 mg twice daily. (patient on lower dose given age and creatinine greater than 1.5)
-Continue prednisone and Bactrim Sunday, Sunday, Sunday per heme-onc given initiation of immunotherapy with Padcev and Keytruda. Follows with Dr. Rubalcava
-d/w patient, nursing
Progress Note - Forester Aide
Subjective
Date of Service: December 26, 2023
Patient seen and examined. Patient sitting up in chair reading book. Feels well when sedentary however when he ambulates notes significant elevation of heart rate associated with chest pressure. Symptoms resolved when he sits down. Per review of
photographer portrait this correlates with patient's heart rates greater than 140 bpm
Objective
Labs:
12/26/23 03:56
12/26/23 03:56
Labs
Hgb 13.7 g/dL (13.0-18.0) 12/26/23 03:56
Hct 40.5 % (39.0-52.0) 12/26/23 03:56
Plt Count 155 10^3/uL (130-400) 12/26/23 03:56
Sodium 138 mmol/L (135-145) 12/26/23 03:56
Potassium 4.4 mmol/L (3.5-5.1) 12/26/23 03:56
BUN 38 mg/dl (9-20) H 12/26/23 03:56
Creatinine 1.5 mg/dL (0.7-1.3) H 12/26/23 03:56
Glucose 101 mg/dl (70-99) H 12/26/23 03:56
Vital Signs and I&O:
Vital Signs
Temp Pulse Resp BP Pulse Ox
98.2 F 118 18 106/83 95
10/09/24 07:29 12/26/23 07:00 12/26/23 07:29 12/26/23 06:51 12/26/23 07:50
Vital Signs
Temp Pulse Resp BP Pulse Ox
98.2 F 118 18 106/83 95
12/26/23 07:29 12/26/23 07:00 12/26/23 07:29 12/26/23 06:51 12/26/23 07:50
Intake & Output
12/24/23 12/25/23 12/26/23 12/27/23
06:59 06:59 06:59 06:59
Intake Total 350 / 350
Output Total 1265 / 1265 1150 / 1150
Balance -915 / -915 -1150 / -1150
Physical Exam
Physical Exam
GEN: No distress, awake, Ox3
HEENT: supple, anicteric, mmm
LUNGS: CTA, no wheezes/rales, on room air
CV: irreg, S1/S2, 1/6 syst LSB, no gallop
ABD: soft, BS+, NT/ND
EXT: No edema clubbing or cyanosis
NEURO: Gross non-focal
SKIN: No rash warm, dry, pink
--- NOTE | 2023-12-26 11:25 | CM ---
Chart reviewed. Patient is independent of ADLS, lives with his in a 3 STH, 1 DAFNE, 0 DME. Plan is for the patient to return home. CM to follow
[2023-12-26 11:27] VITALS: BP 101/80
--- NOTE | 2023-12-26 13:25 | PN.CDI ---
CDI
- -
CDI:
Physician Documentation Request
Admit Date: 12/24/23 16:36
Dear Doctor Jones/ ROSS,
Please review the following and provide your response in the progress notes.
Clinical Indicators:
Pt admitted with Afib/Atrial flutter/ Atrial tachycardia
Cardiology progress notes ,' Paroxysmal afib/aflutter/atach....s/p PVI, posterior wall ablation, mitral annular flutter ablation 11/17/2020...'
Documented per past visit cardiology consult 09/17/23 , ' ...Paroxysmal atypical atrial flutter....'
If possible, please provide further specificity regarding atrial flutter, such as:
Atypical Atrial Flutter - Type II: Less common and more unstable. Rate is 340-440 beats/min. Less responsive to atrial
pacing.
Typical Atrial Flutter - Type I: Classic or common atrial flutter, Rate is 240-340 beats/min. Usually responds to atrial pacing.
Other - please specify
Use of terms such as suspected, likely, concern for, or probable (associated with a specific diagnosis that is being evaluated, monitored, or treated as if it exists) are acceptable and can be coded in the inpatient setting, when documented at the
time of discharge.
Thank you,
Radha Kimball RN
CDI Specialist
Printer Text
Please use your independent medical judgment in providing your response.
--- NOTE | 2023-12-26 13:31 | PN.CDI ---
CDI
- -
CDI:
Physician Documentation Request
Admit Date: 12/24/23 16:36
Dear Doctor Do,
Please review the following and provide your response in the progress notes.
Clinical Indicators:
Pt admitted with Afib/Atrial flutter/ Atrial tachycardia
Documented per H&P and progress note 12/24, 'HPI: 88-year-old male past medical history of ... CHF...'
Documented per past visit progress note 09/18 , ' Acute on chronic heart failure with preserved ejection fraction ...Echo 6 1591-normal LV size and systolic function. Ejection fraction 60 to 65%. ....'
Please provide further specificity regarding the most likely type of CHF you are evaluating, treating or monitoring.
Type
Diastolic
Systolic
Combined Systolic/Diastolic
Other
Use of terms such as suspected, likely, concern for, or probable (associated with a specific diagnosis that is being evaluated, monitored, or treated as if it exists) are acceptable and can be coded in the inpatient setting, when documented at the
time of discharge.
Thank you,
Radha Kimball RN
CDI Specialist
[place] Text
Please use your independent medical judgment in providing your response.
[2023-12-26 15:44] VITALS: BP 117/95
[2023-12-26 19:16] VITALS: BP 101/61
[2023-12-26] MEDS: CARDIZEM CD 120 MG PO (19:18)
[2023-12-26] MEDS: COLACE PO (19:18)
[2023-12-26 22:28] VITALS: BP 111/77
[2023-12-26] MEDS: LIPITOR 10 MG PO (22:30)
[2023-12-26] MEDS: PROSCAR 5 MG PO (22:30)
--- NOTE | 2023-12-26 23:44 | PTCARENOTE ---
Tele remains Afib RVR, HR in the 130-140s at rest. PRN Cardizem 30mg administered--see MAR for details. Patient aware to maintain NPO status at midnight for planned CV on 12/26. Patient ambulates self in room w/out difficulty. Denies any pain. Call
alexandre within reach.
[2023-12-27 04:51] VITALS: BP 97/78
[2023-12-27 04:53] VITALS: BMI 26.3
[2023-12-27 07:22] VITALS: BP 146/127
[2023-12-27 07:24] VITALS: BP 124/109
[2023-12-27 07:26] VITALS: BP 96/62
[2023-12-27] MEDS: CARDIZEM CD 120 MG PO (07:45)
[2023-12-27] MEDS: ELIQUIS 2.5 MG PO (07:46)
[2023-12-27] MEDS: DELTASONE 20 MG PO (07:46)
[2023-12-27] MEDS: COLACE PO (07:47)
--- NOTE | 2023-12-27 10:03 | CM ---
Chart reviewed. Patient is independent of ADLS, lives with his in a 3 STH, 1 DAFNE, 0 DME. Patient is waiting for a cardioversion. Plan is for the patient to return home. CM to follow
--- NOTE | 2023-12-27 10:08 | PTCARENOTE ---
Vital signs at 0722 and 0724 (124/109, 146/127) saved, inaccurate. Notified nurse on floor-accidently saved by this RN. these vital signs were retaken and resulted as 96/62.
--- NOTE | 2023-12-27 10:29 | W.PN.CARDCBS ---
Addendum entered and electronically signed by Richardson Ring MD 12/27/23 11:12:
Patient seen, interviewed and examined by me.
Well-appearing, no acute distress
Irregular rate and rhythm with normal S1 and S2, no S3 no S4. There is a grade 1/6 apical holosystolic murmur and no rubs. PMI is normally placed.
Lungs are clear to auscultation bilaterally without wheezes rales or rhonchi.
Abdomen soft nontender nondistended with normoactive bowel sounds
Extremities show trace pretibial edema bilaterally no clubbing or cyanosis.
Neurologic exam is grossly nonfocal.
subsequent to my physical exam this morning, he was successfully cardioverted to sinus rhythm
I reviewed with him my recommendations moving forward which include repeat EP study and ablation with pulsed field energy later this month, I have tentatively scheduled the patient for January 16, 2024. All of his questions have been answered and
he is agreeable to move towards another attempt at ablation. In the meantime we discussed maintaining rate control. During this hospital stay Cardizem dose has been increased and he is tolerating well.
It is possible he could recur with atrial fibrillation/atrial tachycardia prior to his ablation date and we discussed that as long as he is not feeling terrible we would avoid another cardioversion prior to ablation but of course if he is feeling
terrible we could intervene with another cardioversion. He agrees to this plan.
He is ready for discharge to home today. Discharge instructions reviewed with the patient and all of his questions have been answered.
Original Note:
Today's Communication / Plan
-
For cardioversion today
Continue Cardizem, Eliquis
Tentatively for PFA 01/16/2024
Impression / Plan
-
PCP:
Primary Cap Parts Cutter: Dr. Tomi Ring
Assessment:
Presented with tachycardia, chest pressure
Afib/flutter with RVR
Paroxysmal afib/aflutter/atach
s/p PVI 10/08/2019
s/p PVI, posterior wall ablation, mitral annular flutter ablation 11/17/2020
s/p posterior L atrial wall ablation, right atrial tachycardia ablation 06/30/2021
Failed sotalol
Chronic amiodarone therapy from 01/2022 until 09/12/23, stopped due to amio lung toxicity
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
Chronic anticoagulation with Eliquis
Bladder cancer s/p L robotic nephroureterectomy 09/20/2022, multiple TURBTs with new bladder tumors s/p resection
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
h/o nephrolithiasis with stone removal and stent placement
Chronic renal insufficiency, baseline creat 1.6-1.8
h/o aortic valve replacement 2007
HLD
BPH
ECHO 09/05/23: EF 60 to 65%, stage III diastolic dysfunction, mild concentric LVH, dilated RV, severely dilated atria, mild to moderate MR, well-seated #23 AVR with peak/mean gradients 10/5 mmHg, moderate TR, PAP 57 mmHg
Plan:
-Had several days of A-fib in late November, persistent since 12/20/2023 by review of Linq monitor. Remains in A-fib with rapid response this morning on review of telemetry. Patient relatively asymptomatic
-Plan for cardioversion today
-He is not a candidate for amiodarone therapy due to lung toxicity.
-Tentatively plan for pulsed field ablation 01/16/2024
-Continue Cardizem 120 mg twice daily
-Continue Eliquis 2.5 mg twice daily
-Continue prednisone and Bactrim Sunday, Sunday, Sunday per heme-onc given initiation of immunotherapy with Padcev and Keytruda. Follows with Dr. Rubalcava
-d/w patient, nursing
Progress Note - Cap Parts Cutter
Subjective
Date of Service: December 27, 2023
Denies chest discomfort, shortness of breath. For cardioversion today.
Objective
Labs:
12/26/23 03:56
12/26/23 03:56
Labs
Hgb 13.7 g/dL (13.0-18.0) 12/26/23 03:56
Hct 40.5 % (39.0-52.0) 12/26/23 03:56
Plt Count 155 10^3/uL (130-400) 12/26/23 03:56
Sodium 138 mmol/L (135-145) 12/26/23 03:56
Potassium 4.4 mmol/L (3.5-5.1) 12/26/23 03:56
BUN 38 mg/dl (9-20) H 12/26/23 03:56
Creatinine 1.5 mg/dL (0.7-1.3) H 12/26/23 03:56
Glucose 101 mg/dl (70-99) H 12/26/23 03:56
Vital Signs and I&O:
Vital Signs
Temp Pulse Resp BP Pulse Ox
98.3 F 125 18 96/62 97
12/27/23 07:19 12/27/23 10:00 12/27/23 07:19 12/27/23 07:26 12/27/23 07:19
Vital Signs
Temp Pulse Resp BP Pulse Ox
98.3 F 125 18 96/62 97
12/27/23 07:19 12/27/23 10:00 12/27/23 07:19 12/27/23 07:26 12/27/23 07:19
Intake & Output
12/25/23 12/26/23 12/27/23 12/28/23
07:59 07:59 07:59 07:59
Intake Total 350 / 350 240 / 240
Output Total 1265 / 1265 1150 / 1150
Balance -915 / -915 -1150 / -1150 240 / 240
Physical Exam
Physical Exam
GEN: No distress, awake, alert, oriented x3. Sitting in chair
HEENT: supple, anicteric, mmm, EOMI
LUNGS: CTA bilaterally, no wheezes/rales
CV: Irreg, S1/S2, 2/6 murmur
ABD: soft, BS+, NT/ND
EXT: No cyanosis, clubbing, edema
NEURO: Gross non-focal
SKIN: Warm, pink, dry. No rash
--- NOTE | 2023-12-27 11:08 | ITS.CL.CARDI ---
Senior Quality Assurance Engineer - Cardioversion
Cardioversion
Procedure Report:
Date of Procedure: 12/27/23
Procedure: Cardioversion
Indication: Symptomatic atrial fibrillation
Performing Physician: Vanita Rueda DO [facility]
Technique: The patient was brought to the holding area. Signed informed consent was obtained. A time out was called and performed. The patient was anesthetized by the anesthesia service. Anticoagulation status was reviewed and appropriate. R2 pads
were placed anteriorly and posteriorly. A 200 J synchronized biphasic shock restored normal sinus rhythm without significant bradycardia. There were no complications.
Conclusion: Uncomplicated cardioversion from atrial fibrillation to sinus rhythm.
Recommendation: Routine post cardioversion care. Continue senior care anticoagulation.
[2023-12-27 11:28] VITALS: BP 100/75
--- NOTE | 2023-12-27 17:21 | PTCARENOTE ---
Rec'd Pt post CV, A,A+Ox3, VSS. Pt in SR 80's.
== END 2023-12-27 16:55 | disposition home or self-care (01) | DRG 309 ==
LOC: IVU 16:36
PROVIDERS: Clinical Nurse Specialist Family Health; Internal Medicine Cardiovascular Disease; Physician Assistant; ADMITTING PHYSICIAN Hospitalist; ATTENDING PHYSICIAN Family Medicine; CONSULT PHYSICIAN Internal Medicine Interventional Cardiology; EMERGENCY PHYSICIAN Emergency Medicine; FAMILY PHYSICIAN Internal Medicine
PROC: 5A2204Z Restoration of Cardiac Rhythm, Single (ICD-10-PCS; 2023-12-27)
DX: I48.0 Paroxysmal atrial fibrillation (principal); C78.00 Secondary malignant neoplasm of unspecified lung; J84.9 Interstitial pulmonary disease, unspecified; I50.32 Chronic diastolic (congestive) heart failure; I13.0 Hypertensive heart and chronic kidney disease with heart failure and stage 1 through stage 4 chronic kidney disease, or unspecified chronic kidney disease; N18.32 Chronic kidney disease, stage 3b; R09.02 Hypoxemia; I47.19 Other supraventricular tachycardia; C67.9 Malignant neoplasm of bladder, unspecified; N40.0 Benign prostatic hyperplasia without lower urinary tract symptoms; R00.1 Bradycardia, unspecified; R07.89 Other chest pain; I48.4 Atypical atrial flutter; E78.00 Pure hypercholesterolemia, unspecified; J44.9 Chronic obstructive pulmonary disease, unspecified; Z87.442 Personal history of urinary calculi; Z95.3 Presence of xenogenic heart valve; Z85.528 Personal history of other malignant neoplasm of kidney; Z85.51 Personal history of malignant neoplasm of bladder; Z92.21 Personal history of antineoplastic chemotherapy; Z79.01 Long term (current) use of anticoagulants; Z79.2 Long term (current) use of antibiotics
CPT/HCPCS: 80048; 80053; 84443; 85025; 92960; 93005; 93291; 96361; 96374; 97162; 97166; 99285

== ENCOUNTER → 2024-01-08 11:16 | Outpatient (REF) | payer OTHER, SELFPAY ==
[2024-01-08 09:10] LABS: % Basophils 0.6 % (0-2); % Eosinophils 1.3 % (0-6); % Immature Granulocytes 0.6 % (0-0.5); % Lymphocytes 23.9 % (20.5-51.1); % Monocytes 10.1 % (1.7-9.3); % Neutrophils 63.5 % (42.2-75.2); Absolute Eosinophils 0.1 10^3/uL (0-0.7); Absolute Lymphocytes 1.7 10^3/uL (1.2-3.4); Absolute Monocytes 0.7 10^3/uL (0.1-0.6); Absolute Neutrophils 4.5 10^3/uL (1.4-6.5); Hematocrit 40.2 % (39.0-52.0); Hemoglobin 13.4 g/dL (13.0-18.0); Mean Corp Hgb Conc. 33.3 g/dL (33.0-37.0); Mean Corpuscular Hgb 31.1 pg (27.0-31.0); Mean Corpuscular Volume 93.3 fL (80.0-94.0); Mean Platelet Volume 9.2 fL (7.4-10.4); Platelet Count 174 10^3/uL (130-400); Red Blood Cell Count 4.31 10^6/uL (4.70-6.10); Red Cell Dist. Width 15.1 % (11.5-14.5)
[2024-01-08 10:16] LABS: ALT (SGPT) 26 U/L (0-50); AST (SGOT) 35 U/L (17-59); Albumin 3.8 g/dl (3.5-5.0); Alkaline Phosphatase 56 U/L (38-126); Blood Urea Nitrogen 37 mg/dl (9-20); Calcium 9.7 mg/dl (8.4-10.2); Carbon Dioxide 27 mmol/L (22-30); Chloride 105 mmol/L (98-107); Glucose 85 mg/dl (70-99); Potassium 4.1 mmol/L (3.5-5.1); Sodium 140 mmol/L (135-145); Total Protein 6.5 g/dl (6.3-8.2); eGFR 36.21
== END ==
LOC: OIDL 11:16
PROVIDERS: ATTENDING PHYSICIAN Internal Medicine Hematology & Oncology
DX: C65.2 Malignant neoplasm of left renal pelvis (principal)
CPT/HCPCS: 80053; 85025

== ENCOUNTER → 2024-01-10 06:39 | Outpatient (REF) | payer OTHER, SELFPAY | LOC: RSP 06:39 | PROVIDERS: ATTENDING PHYSICIAN Internal Medicine Hematology & Oncology; FAMILY PHYSICIAN Internal Medicine | DX: C65.2 Malignant neoplasm of left renal pelvis (principal) | CPT/HCPCS: 94727; 94729; 88738; 94010 ==

== ENCOUNTER 2024-01-11 17:34 | Emergency (ER) | payer OTHER, SELFPAY ==
[2024-01-11 17:43] VITALS: BP 130/95
[2024-01-11] MEDS: ADACEL 0.5 ML IM (19:48)
--- NOTE | 2024-01-11 20:57 | ED.GENMED ---
History of Present Illness
General
Chief Complaint: Skin Surface Trauma
Time Seen by Provider: 01/11/24 18:37
History of Present Illness
History of Present Illness:
88-year-old male presents the emergency department for evaluation of a minor chin laceration sustained after a mechanical trip and fall. Struck his head on the ground, no loss of consciousness. Does take Eliquis. Denies headache or neck pain
Past History
Past History
ED Past Medical History: Arrthythmia (On Eliquis), Cancer, COPD, Hypercholesterolemia, Valvular disease, Other (Kidney stones) and Other (Recently diagnosed with interstitial lung disease 08/2023 on home oxygen 3 L/min)
ED Past Surgical History: Cardiac (Porcine valve replacement), Orthopedic and Other (Cystoscopy with ureteral stone removal, and stent placement)
Social History
Tobacco: Non-smoker
Alcohol: Occasional
Drug: None
Personal:
Living: with family
Employment: Retired
Family History
Family History: Negative CAD
Review of Systems
Review of Systems
Allergies reviewed?: Yes
All Other Systems: ROS reviewed and negative except as documented in HPI and ROS
Phy Exam
Physical Exam
Physical Exam:
GEN: Well appearing, NAD, WDWN
HEENT: Oral mucosa moist, no scleral icterus. 1.5 cm jagged laceration to the lower aspect of the chin, no foreign bodies visualized, no intraoral injuries
Cardiac: Regular rate
Lung: No respiratory distress, no tachypnea
MSK: No gross deformity or injuries
Skin: Good color, no pallor or jaundice, no rashes
Neuro: AO x3, moves all extremities freely
Psych: Calm, cooperative
Course
Orders/Labs/Results
Orders:
Orders
01/11/24 19:23
CT Head W/o Iv Contrast Urgent
Comment:
Reason For Exam: fall, head injury on Eliquis
01/11/24 19:37
Tetanus/Diphth/Acelpertussis [Adacel] 0.5 ml IM .ONCE ONE
Vital Signs
Initial and Last Documented VS:
Initial Vital Signs
Temp Pulse Resp BP Pulse Ox
98 F 77 18 130/95 94
01/11/24 17:43 01/11/24 17:43 01/11/24 17:43 01/11/24 17:43 01/11/24 17:43
Last Documented Vital Signs
Temp Pulse Resp BP Pulse Ox
98 F 77 18 130/95 94
01/11/24 17:43 01/11/24 17:43 01/11/24 17:43 01/11/24 17:43 01/11/24 17:43
Procedures
Laceration Closure
Chin:
Status of Wound: clean
Size of Wound in cm: 1.5
Description of Wound Edges: ragged
Preparation: cleaned with soap & water
Anesthesia: 1% Lidocaine with epi
Wound exploration: explored to base- no FB and no tendon involvement
Type of Closure: single layer closure
Skin Closure Material: 5-0 prolene
Number of sutures: 3
MDM/Problems Addressed
MDM/Problems Addressed:
Due to the patient's anticoagulant use a CT of the head was obtained showing no evidence for intracranial hemorrhage. Wound was repaired at the bedside and tetanus updated
*Critical Care Note
Total Time (30-74mins, 75-104mins- exclusive of procedures): Not Applicable
ED Attending Note
-
Portions of this chart may have been created with voice recognition software.� Occasional wrong word or��sound alike� substitutions may have occurred due to the inherent limitations of voice recognition software.
Discharge Plan
Departure
Patient Disposition: Home (Routine Discharge)
Date of Disposition: 01/11/24
Time of Disposition: 20:57
Patient with high blood pressure during this ER visit?: No
Discharge Problem:
Chin laceration
Instructions: Laceration Repair With Stitches (DC)
Prescriptions:
No Action
finasteride 5 MG tablet
5 mg PO HS
simvastatin 10 MG tablet
10 mg PO HS
Eliquis 5 mg Tablet
2.5 mg PO BID
prednisone 10 mg Tablet
20 mg PO .TAPER
Patient Comments:
12/24/23: Patient's current dosage is 20mg QD FOR 3 days thn 10mg for 9 days, taper is scheduled to end on 01/05/24.
sulfamethoxazole-trimethoprim [Bactrim DS] 800-160 mg Tablet
1 tab PO MOWEFR
Keytruda 25 mg/mL Solution
200 mg IV Q3W
docusate sodium 100 mg Capsule
100 mg PO BID 30 Days Qty: 60 0RF
diltiazem HCl 120 mg Capsule,Extended Release 24hr
120 mg PO BID Qty: 60 0RF
diltiazem HCl 30 mg Tablet
30 mg PO TID PRN (Reason: racing heartbeat) Qty: 60 0RF
Referrals:
Brant Kruse MD [Family Provider] -
Activity Restrictions/Additional Instructions:
Keep wound dry for 24 hours then you may shower and wash the wound as normal
Suture removal in 5 to 7 days
Interventions
Interventions:
*Risk Screen - Suicide Last Done: 01/11/24 17:55
*General Assessment Last Done: 01/11/24 17:55
*Neglect/Abuse Screening Last Done: 01/11/24 17:55
ED- Fall Risk Assessment Last Done: 01/11/24 17:54
ED-Skin Assessment Last Done: 01/11/24 17:54
Discharge Date and Time
Print Language: GREEK
== END 2024-01-11 21:15 | disposition home or self-care (01) ==
LOC: EMR 17:34
PROVIDERS: EMERGENCY PHYSICIAN Student in an Organized Health Care Education/Training Program; FAMILY PHYSICIAN Internal Medicine
DX: S01.81XA Laceration without foreign body of other part of head, initial encounter (principal); W01.0XXA Fall on same level from slipping, tripping and stumbling without subsequent striking against object, initial encounter; Z23 Encounter for immunization; J44.9 Chronic obstructive pulmonary disease, unspecified; E78.00 Pure hypercholesterolemia, unspecified; J84.9 Interstitial pulmonary disease, unspecified; I38 Endocarditis, valve unspecified; Z79.01 Long term (current) use of anticoagulants; Z87.442 Personal history of urinary calculi; Z99.81 Dependence on supplemental oxygen; Z95.2 Presence of prosthetic heart valve
CPT/HCPCS: 99284; 12011; 90471; 70450; 90715

== ENCOUNTER 2024-01-16 08:05 | Day surgery (SDC) | payer OTHER, SELFPAY ==
[2024-01-16] VITALS (20 sets, daily range): BP systolic 90–128; BP diastolic 52–92; BMI 27.5
[2024-01-16] MEDS: TYLENOL 1000 MG PO (09:21)
[2024-01-16 12:10] LABS: ACT-LR - POC 247 Seconds (116-155)
[2024-01-16 12:19] LABS: % Basophils 0.7 % (0-2); % Immature Granulocytes 0.5 % (0-0.5); % Monocytes 8.8 % (1.7-9.3); Absolute Basophils 0.1 10^3/uL (0-0.2); Absolute Eosinophils 0.1 10^3/uL (0-0.7); Absolute Immature Granulocytes 0.1 10^3/uL (0-0.05); Absolute Lymphocytes 2.7 10^3/uL (1.2-3.4); Absolute Monocytes 0.8 10^3/uL (0.1-0.6); Absolute Neutrophils 5.8 10^3/uL (1.4-6.5); Hematocrit 40.8 % (39.0-52.0); Hemoglobin 13.7 g/dL (13.0-18.0); Mean Corp Hgb Conc. 33.6 g/dL (33.0-37.0); Mean Corpuscular Hgb 31.1 pg (27.0-31.0); Mean Corpuscular Volume 92.7 fL (80.0-94.0); Mean Platelet Volume 9.3 fL (7.4-10.4); Nucleated Red Blood Cells % 0 % (-); Platelet Count 176 10^3/uL (130-400); Red Cell Dist. Width 14.7 % (11.5-14.5); White Blood Cell Count 9.6 10^3/uL (4.8-10.8)
[2024-01-16 12:37] LABS: ACT-LR - POC 319 Seconds (116-155)
[2024-01-16 12:37] LABS: ALT (SGPT) 24 U/L (0-50); AST (SGOT) 42 U/L (17-59); Albumin 3.5 g/dl (3.5-5.0); Alkaline Phosphatase 53 U/L (38-126); Blood Urea Nitrogen 29 mg/dl (9-20); Calcium 8.7 mg/dl (8.4-10.2); Carbon Dioxide 28 mmol/L (22-30); Chloride 103 mmol/L (98-107); Estimated Creatinine Clearance 39 ml/min; Glucose 108 mg/dl (70-99); Potassium 4.1 mmol/L (3.5-5.1); Sodium 140 mmol/L (135-145); Total Bilirubin 1.6 mg/dl (0.2-1.3); Total Protein 6.3 g/dl (6.3-8.2); eGFR 45.06
[2024-01-16 12:53] LABS: ACT-LR - POC 263 Seconds (116-155)
[2024-01-16 13:17] LABS: ACT-LR - POC 322 Seconds (116-155)
[2024-01-16 13:40] LABS: ACT-LR - POC 326 Seconds (116-155)
[2024-01-16 14:04] LABS: ACT-LR - POC 345 Seconds (116-155)
--- NOTE | 2024-01-16 16:23 | ITS.CL.ABL ---
Storage Battery Inspector And Tester - Ablation
Ablation
Procedure Report:
ELECTROPHYSIOLOGIC STUDY AND ABLATION
Procedure Date: January 16, 2024
Primary Care Provider: [ ]
INDICATION: Supraventricular tachycardia, palpitations
HISTORY: See H and P.
Symptomatic AF, poorly controlled with attempted medical therapy.
Several prior ablations (2019, 2020, 2021 for AF and SVT , atrial flutter and AT.
He has recurred with symptomatic atrial flutter resistant to medical therapy. He poorly tolerates amiodarone with suspected lung toxicity.
Medical condition is further complicated by interstitial lung disease.
Bladder cancer s/p L robotic nephroureterectomy 09/20/2022, multiple TURBTs with new bladder tumors s/p resection
New metastatic disease to lung, initiating keytruda 12/19/23.
History of bicuspid aortic valve with remote AVR 2007.
HAS-BLED: 2
Age
Abnormal Renal Function
CHADSVASc: 2
Age
PRESENTING RHYTHM: atrial flutter
HISTORY: See H and P.
Symptomatic AF, poorly controlled with attempted medical therapy.
ANTICOAGULATION: Eliquis 2.5 mg twice daily dose adjusted for age and renal function
'TIME-OUT': called and confirmed.
SEDATION/ANESTHESIA: provided via the anesthesia department using general anesthesia.
PROCEDURE:
Ultrasound Guidance performed by id was utilized for femoral venous Vascular Access b/l.
A decapolar CS catheter was placed within the CS for mapping and pacing.
The intracardiac ultrasound catheter was positioned in the RA for continuous intracardiac ultrasound imaging.
Heparin bolus and infusion to target ACT at 300 -350 seconds was administered. Transseptal puncture was performed. This entailed advancing a sheath with dilator into the superior vena cava and withdrawing both (monitoring intracardiac ultrasound,
fluoroscopy and tip pressure) with the tip oriented toward the atrial septum. The fossa ovalis was engaged (indicated by sudden displacement of the sheath tip as well as tenting of the fossa seen on intracardiac ultrasound).
Transseptal confirmed by echocardiographic imaging and fluoroscopy followed by RF delivery using the Chrysallis system resulting in successful LA access with pressure monitoring demonstrating LA pressure waveforms (LA mean pressure 5 mm Hg). The sheath
was advanced over the dilator and positioned in the left atrium.
The Perea Grid multipolar mapping catheter was initially positioned through the transseptal sheath for high density mapping.
Geometry and voltage mapping was performed using the Perea multipolar grid catheter. Ensite-X was utilized for three-dimensional electroanatomical mapping.
A 3-D map was created using Ensite-X in Voxel mode. A 3-D reconstructed CT image was compared to the 3-D Navex map to assist in anatomic evaluation, mapping and ablation.
Initial activation mapping as well as entrainment mapping to find clockwise mitral annular flutter. The femoral pulse ablation catheter was then substituted and positioned at the mitral valve annulus between the base of the left atrial appendage
and the mitral valve were several pulsed field ablation lesions were delivered, changing the activation sequence and cycle length of the tachycardia prolonging it from 290 to 310 ms. Activation mapping demonstrated block at the ablation line at the
mitral valve isthmus. Additional high density mapping using the multipolar grid catheter demonstrated focal left atrial tachycardia arising from the mitral valve annulus at approximately the 9 o'clock position. During mapping the tachycardia
terminated. Programmed electrical stimulation then induced a different atrial tachycardia at cycle length 260 ms with activation mapping then demonstrating focal activation at the mitral annulus at approximately a 7 o'clock position. The pulsed
field ablation catheter was substituted and energy was delivered to both areas along the mitral valve annulus but this did not terminate the tachycardia, tachycardia slowed. Mapping demonstrated area of continuous electrical activation at the base
of the left atrial appendage which was targeted but this did not affect the tachycardia. Mapping of the right atrium demonstrated typical counterclockwise right atrial flutter. The fair R wave pulse field ablation catheter within substituted to
the right atrium where energy was delivered just lateral to the 6:00 line from the tricuspid annulus down to the inferior vena cava. During ablation the tachycardia slowed then terminated. The multipolar mapping catheter was then substituted and
mapping demonstrated isolation at the targeted ablation CTI line but during mapping another atrial tachyarrhythmia was induced with activation mapping as well as entrainment mapping demonstrating an area of Micra reentry just lateral to the CTI
line. As the ablation catheter was maneuvered to this area the tachycardia bumped terminated. RF was delivered in and around this area. He remained in sinus rhythm and no further ablation was performed.
Additionally, mapping today demonstrated electrical isolation of all 4 pulmonary veins from his prior ablation.
I.C.E. :
Pre-Ablation Post-Ablation
LVEF: 50 % 50 %
WMA: none none
COMPLICATIONS:
None
SUMMARY:
EPS with coronary sinus catheter and programmed electrical stimulation
Transseptal puncture
Mapping and ablation of multiple supraventricular tachycardias including 3 left atrial tachycardias and 2 right atrial tachycardias as described above.
Intracardiac echocardiogram
3D mapping
Post ablation, I discussed today's findings and results with the patient's , Patience.
RECOMMENDATIONS:
- Observe in monitored bed.
- Maintain oral anticoagulation.
- Continue continue Cardizem for now and we can reassess need as an outpatient
- Office visit with me in 3 months.
Copy to: Dr Brant Kruse
[2024-01-16] MEDS: DELTASONE 10 MG PO (17:34)
--- NOTE | 2024-01-16 18:35 | PTCARENOTE ---
Rec'd pt this shift awake and alert.Pt on bedrest at this time. Rt femoral dsg intact with no bleeding noted. Pt NSR on monitor, 1ln/c oxygen. VS and groin checks done as per protocol. Pts at bedside. Updated patient on plan of care. See
worklist for VS/I and O and assessments.
[2024-01-16] MEDS: CARDIZEM CD 120 MG PO (19:47)
[2024-01-16] MEDS: LIPITOR 10 MG PO (22:37)
[2024-01-16] MEDS: PROSCAR 5 MG PO (22:37)
[2024-01-16] MEDS: ELIQUIS 2.5 MG PO (22:37)
--- NOTE | 2024-01-17 00:30 | PTCARENOTE ---
Assumed care of patient at change of shift. Tele remains SR w/ occasional PACs. Pulse ox sating 88-89% on 1L of O2, this RN increased oxygen to 2L. Patient now sating 92-94% on 2L. Lungs w/ crackles in the bases. Pt denies any SOB. Right groin
figure 8 clipped at approx 19:45. At approx 21:20 right groin dressing saturated w/ serosanguineous fluid. This RN held manual pressure for 10 mins. A hemostasis pad, sterile 4x4 and Tegaderm applied to site post manual pressure. No hematoma
noted at this time. Site soft upon palpation, and b/l pedal pulses palpable. Alexander removed at 22:40. Patient aware to void in urinal for accurate I/Os. Patient stood at bedside w/ RN, and felt generalized weak. Patient aware of POC, call alexandre
within reach.
[2024-01-17 03:35] VITALS: BP 103/63
[2024-01-17 04:09] LABS: Hematocrit 36.5 % (39.0-52.0); Hemoglobin 12.8 g/dL (13.0-18.0); Mean Corp Hgb Conc. 35.1 g/dL (33.0-37.0); Mean Corpuscular Hgb 32.3 pg (27.0-31.0); Mean Corpuscular Volume 92.2 fL (80.0-94.0); Mean Platelet Volume 9.5 fL (7.4-10.4); Platelet Count 150 10^3/uL (130-400); Red Blood Cell Count 3.96 10^6/uL (4.70-6.10); White Blood Cell Count 9.2 10^3/uL (4.8-10.8)
[2024-01-17 04:36] LABS: Blood Urea Nitrogen 35 mg/dl (9-20); Calcium 8.5 mg/dl (8.4-10.2); Carbon Dioxide 24 mmol/L (22-30); Chloride 105 mmol/L (98-107); Estimated Creatinine Clearance 42 ml/min; Glucose 159 mg/dl (70-99); Potassium 4.6 mmol/L (3.5-5.1); Sodium 139 mmol/L (135-145); eGFR 48.95
--- NOTE | 2024-01-17 07:26 | W.PN.CARDCBS ---
Addendum entered and electronically signed by Richardson Ring MD 01/17/24 12:33:
Patient seen, interviewed and examined by me.
Well-appearing, no acute distress
Regular rate and rhythm with ectopy, normal S1 and S2, no S3 no S4. There is a grade 1/6 apical holosystolic murmur and no rubs. PMI is normally placed.
Lungs are clear to auscultation bilaterally without wheezes rales or rhonchi.
Abdomen soft nontender nondistended with normoactive bowel sounds
Extremities show trace pretibial edema bilaterally no clubbing or cyanosis.
Neurologic exam is grossly nonfocal.
I reviewed with him the findings of his EP study yesterday. 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 Multiple left atrial and right atrial tachycardias were diagnosed and ablated. While I
am hopeful he will continue to maintain sinus rhythm it should not be unexpected that he may recur with atrial arrhythmias. Should this be the case I would favor attempting antiarrhythmic drug therapy as the next step. We need to avoid amiodarone
due to its potential role in his interstitial lung disease. We could attempt careful use of a type III antiarrhythmic drug such as dofetilide dose and schedule adjusted for renal insufficiency, QTc is 468 ms. In the meantime we will continue
current dose of Cardizem for rate control should he recur with atrial tachycardias.
I have also communicated with his civil engineering drafter, Dr. Faustin and there is concern that his recent tapering of steroids has resulted in some worsening symptoms and therefore we will increase prednisone from 10 mg daily to 20 mg daily. He has an
appointment with Dr. Faustin next week for further evaluation and management.
Original Note:
Today's Communication / Plan
-
Hypoxia/ILD, increase prednisone to 20mg daily, outpt f/u Pulm, continue I.S. C&DB, home O2 1-2 L, keep sats >92%
continue OAC and Diltazem
stable for d/c home
Impression / Plan
-
PCP: Brant Kruse MD
Primary Hospital Laboratory Technician: Dr. Tomi Ring
Impression:
Symptomatic Afib/flutter
s/p PVI 10/08/2019
s/p PVI, posterior wall ablation, mitral annular flutter ablation 11/17/2020
s/p posterior L atrial wall ablation, right atrial tachycardia ablation 06/30/2021
Failed sotalol
Chronic amiodarone therapy from 01/2022 until 09/12/23, stopped due to amio lung toxicity
tachybrady s/p Medtr[employer] loop recorder 11/15/23Chronic anticoagulation with Eliquis
Bladder cancer s/p L robotic nephroureterectomy 09/20/2022, multiple TURBTs with new bladder tumors s/p resection
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
h/o nephrolithiasis with stone removal and stent placement
CKD3b, baseline creat 1.6-1.8
h/o aortic valve replacement 2007
HLD
BPH
ILD on home O2
recent fall with chin laceration
SUMMARY:
EPS with coronary sinus catheter and programmed electrical stimulation
Transseptal puncture
Mapping and ablation of multiple supraventricular tachycardias including 3 left atrial tachycardias and 2 right atrial tachycardias as described above.
Intracardiac echocardiogram
3D mapping
Plan:
post multiple complex atrial tachycardia and SVT ablations on 01/16/24
tele SR with PAC's
groin stable
post op urinary retention, with history placed FC which was removed at 2200 last night, voiding this am without difficulty
stable Cr 1.4
OAC Eliquis 2.5mg bid
Continue diltiazem
Hypoxia, RA sats 87-89% s/w Dr. Kirby and we will increase prednisone to 20mg daily, f/u pulm as outpt
Encouraged I.S. C&DB, continue Home O2 1-2L to keep sats >92%
Activity restrictions reviewed
f/u Dr. Krishna in 1 mo
stable for d/c home today
Progress Note - Hospital Laboratory Technician
Subjective
Date of Service: January 17, 2024
no cp, mild dyspnea
Objective
Labs:
01/17/24 03:43
01/17/24 03:43
Labs
Hgb 12.8 g/dL (13.0-18.0) L 01/17/24 03:43
Hct 36.5 % (39.0-52.0) L 01/17/24 03:43
Plt Count 150 10^3/uL (130-400) 01/17/24 03:43
Sodium 139 mmol/L (135-145) 01/17/24 03:43
Potassium 4.6 mmol/L (3.5-5.1) 01/17/24 03:43
BUN 35 mg/dl (9-20) H 01/17/24 03:43
Creatinine 1.4 mg/dL (0.7-1.3) H 01/17/24 03:43
Glucose 159 mg/dl (70-99) H 01/17/24 03:43
Vital Signs and I&O:
Vital Signs
Temp Pulse Resp BP Pulse Ox
97.9 F 75 18 103/63 92
01/17/24 03:38 01/17/24 06:00 01/17/24 03:38 01/17/24 03:35 01/17/24 03:38
Vital Signs
Temp Pulse Resp BP Pulse Ox
97.9 F 75 18 103/63 92
01/17/24 03:38 01/17/24 06:00 01/17/24 03:38 01/17/24 03:35 01/17/24 03:38
Intake & Output
01/15/24 01/16/24 01/17/24 01/18/24
06:59 06:59 06:59 06:59
Intake Total 250 / 250
Output Total 1650 / 1650
Balance -1400 / -1400
Physical Exam
Physical Exam
NAD, AOx3
S1, S2, RRR
bibasilar crackles, no wheeze
SNTND bsx4
R fem site c/d/i no HT, soft
[2024-01-17 07:43] VITALS: BP 107/74
[2024-01-17] MEDS: ELIQUIS 2.5 MG PO (07:46)
[2024-01-17] MEDS: CARDIZEM CD 120 MG PO (08:03)
[2024-01-17] MEDS: DELTASONE 20 MG PO (08:42)
--- NOTE | 2024-01-17 08:56 | W.DS.TRANS ---
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
-
Discharge Instructions:
Sleep Apnea Risk Intermediate
Discharge Diagnosis/Procedures Afib post ablation
Diet Low Cholesterol
Driving Restrictions No driving for 24 hours
Instructions:
Stand-Alone Forms: DC Instructions- Cath/EP Lab
Changes to Home Medications: No
Discharge Medications:
DC Medications w/original date entered in [facility]
finasteride 5 mg tablet 5 mg PO HS prostate 05/25/10
simvastatin 10 mg tablet 10 mg PO HS High cholesterol 09/04/19
apixaban 5 mg tablet (Eliquis) 2.5 mg PO BID Blood Clot Prevention/Tx 09/17/23
pembrolizumab 25 mg/mL intravenous solution (Keytruda) 200 mg IV Q3W 12/24/23
sulfamethoxazole 800 mg-trimethoprim 160 mg tablet (Bactrim DS) 1 tab PO MOWEFR pneumonia 12/24/23
diltiazem HCl 120 mg capsule,extended release 24 hr 120 mg PO BID #60 caps 12/27/23
diltiazem HCl 30 mg tablet 30 mg PO TID PRN racing heartbeat #60 tabs 12/27/23
docusate sodium 100 mg capsule 100 mg PO BID 30 days #60 caps 12/27/23
prednisone 10 mg tablet 20 mg (2 x 10 mg) PO .TAPER #0 tabs 01/17/24
Home Medication Changes
Pending Results: No
--- NOTE | 2024-01-17 09:17 | CM ---
Reviewed chart. Met with Mr. Trivedi to review discharge plans. He states prior to admission he resides with his spouse in a three story home with two steps to enter. He states he has an elevator to get to the upper floors. He states prior to
admission he was independent with ambulation and adls. He states he has a home 02 and no other DME in the home. He uses home 02 at 2 liters. He has portable and concentrator at home. He states he has a prescription plan. The discharge plan is to
return home with his spouse when medically stable.
--- NOTE | 2024-01-17 09:57 | PTCARENOTE ---
Pt received this am on 2LNC. Room air sat 88 - 89%. 93% on 1LNC. Ambulated with nurse in the hallway on room air, Sat decreased to 87%. Pt returned to room and placed back on 1L, sat 93%. Pt denies any sob at rest but does get sob with exertion.
Right groin dressing dry and intact with no ecchymosis or hematoma.
[2024-01-17 11:30] VITALS: BP 107/54
--- NOTE | 2024-01-17 13:10 | PTCARENOTE ---
Pt discharged to home with his . Discharge instructions given and reviewed with good understanding.
== END 2024-01-17 13:05 | disposition home or self-care (01) ==
LOC: CATH 08:05
PROVIDERS: Nurse Practitioner; Nurse Practitioner Adult Health; ATTENDING PHYSICIAN Internal Medicine Cardiovascular Disease; FAMILY PHYSICIAN Internal Medicine
DX: I48.92 Unspecified atrial flutter (principal); I48.91 Unspecified atrial fibrillation; I10 Essential (primary) hypertension; I47.10 Supraventricular tachycardia, unspecified; I47.19 Other supraventricular tachycardia; Z85.51 Personal history of malignant neoplasm of bladder; N18.32 Chronic kidney disease, stage 3b; Z95.2 Presence of prosthetic heart valve; N40.1 Benign prostatic hyperplasia with lower urinary tract symptoms; J84.9 Interstitial pulmonary disease, unspecified; E78.5 Hyperlipidemia, unspecified; Z87.442 Personal history of urinary calculi; Z90.5 Acquired absence of kidney; Z79.01 Long term (current) use of anticoagulants; Z79.52 Long term (current) use of systemic steroids; Z79.899 Other long term (current) drug therapy
CPT/HCPCS: 80048; 80053; 83735; 85025; 85027; 85347; 86850; 86900; 86901; 93005; 93462; 93653; 93655; C1730; C1732; C1733; C1759; C1766; C1769; C1892; C1893; C1894; C2630

== ENCOUNTER 2024-01-17 19:30 | Emergency (ER) | payer OTHER, SELFPAY ==
[2024-01-17] VITALS (10 sets, daily range): BP systolic 90–111; BP diastolic 64–83
--- NOTE | 2024-01-17 19:54 | ED.GENMED ---
History of Present Illness
General
Chief Complaint: Heart Rate Problem
Source: patient, records and spouse
Exam Limitations: none
Time Seen by Provider: 01/17/24 19:39
Nursing documentation reviewed up to this point in time: agreed with
History of Present Illness
History of Present Illness:
88-year-old male with a past medical history of hyperlipidemia, interstitial lung disease, chronic respiratory failure on 3 L home oxygen, paroxysmal atrial fibrillation on Eliquis who presents to the emergency room with his and son; he
presents for evaluation of palpitations and shortness of breath. Patient notably had cardiac ablation with Dr. Ring yesterday morning. He has been feeling well since the procedure until this evening. He says he was at dinner around 7 PM
with his family and began feeling acute onset of palpitations and shortness of breath. He says that the symptoms are consistent with his typical A-fib symptoms. He says that he waited a few minutes and when symptoms were not improving he took a 30
mg p.o. dose of diltiazem which is his typical protocol when he is in atrial fibrillation with RVR. He says that after 30 minutes symptoms were not improving and so he came to the ER to be evaluated. He denies any chest pain. He denies any
dizziness. He denies any other complaints. He reports compliance with his anticoagulation (Eliquis 2.5 mg twice daily) with the exception of 1 missed dose yesterday morning prior to his cardiac ablation.
Past History
Past History
ED Past Medical History: Arrthythmia (On Eliquis), Cancer, COPD, Hypercholesterolemia, Valvular disease, Other (Kidney stones) and Other (Recently diagnosed with interstitial lung disease 08/2023 on home oxygen 3 L/min)
ED Past Surgical History: Cardiac (Porcine valve replacement), Orthopedic and Other (Cystoscopy with ureteral stone removal, and stent placement)
Social History
Tobacco: Non-smoker
Alcohol: Occasional
Drug: None
Personal:
Living: with family
Employment: Retired
Family History
Family History: Negative CAD
Review of Systems
Review of Systems
All Other Systems: ROS reviewed and negative except as documented in HPI and ROS
Respiratory: Reports trouble breathing
Cardiac: Reports palpitations; Denies chest pain
ABD/GI: Denies abdominal pain, nausea or vomiting
Musculoskeletal: Denies edema
Neurological: Denies dizzy or headache
Phy Exam
Physical Exam
Physical Exam:
General: Awake, alert, oriented x3; no acute distress
Head: Normocephalic, atraumatic
Eyes: Conjunctiva normal, sclera anicteric
Throat: Airway intact, handling secretions
Neck: Trachea midline, supple without meningismus
Lungs: Patient has tachypnea, faint rales at the lung bases bilaterally in the setting of known interstitial lung disease; he is satting appropriately on his normal home oxygen
Heart: Tachycardia with irregularly irregular rhythm, no murmurs, gallops, or rubs appreciable within the limits of marked tachycardia
Neuro: No gross deficits
Skin: no rash
Extremities: No edema in extremities, warm well-perfused
Scores
Heart Failure Risk
Heart Failure Risk Score: Not Applicable
Heart Score for Chest Pain Patients
STEMI patient?: Not applicable
Withdrawal Assessment of Alcohol
Withdrawal Assessment Completed?: Not applicable
Course
Orders/Labs/Results
Orders:
Orders
01/17/24 19:30
EKG [Electrocardiogram (*1)] Urgent
Reason for Study: Bradycardia / Tachycardia
EKG- Treatment ONCE
01/17/24 19:51
0.9% Sodium Chloride 500 ml [Nss] 500 ml IV BOLUS
01/17/24 20:40
Complete Blood Count/With Diff Urgent
Comprehensive Metabolic Panel Urgent
Magnesium Urgent
01/17/24 21:19
Propofol [Diprivan] 20 ml .ROUTE .STK-MED
01/17/24 21:27
Propofol [Diprivan] 60 mg IV NOW STA
01/17/24 21:34
ECG [Electrocardiogram (*1)] Urgent
Reason for Study: Other
Other Reason for Exam: post cardioversion
Cardiology Consult: Unknown
EKG- Treatment ONCE
Abnormal Lab Results
01/17/24
20:40
WBC 12.8 H 10^3/uL
(4.8-10.8)
RBC 4.31 L 10^6/uL
(4.70-6.10)
Hct 37.6 L %
(39.0-52.0)
RDW 14.9 H %
(11.5-14.5)
Absolute Neuts (auto) 11.0 H 10^3/uL
(1.4-6.5)
Neutrophils % 85.8 H %
(42.2-75.2)
Lymphocytes % 10.1 L %
(20.5-51.1)
Carbon Dioxide 20 L mmol/L
(22-30)
BUN 44 H mg/dl
(9-20)
Creatinine 1.7 H mg/dL
(0.7-1.3)
Glucose 180 H mg/dl
(70-99)
Total Bilirubin 1.4 H mg/dl
(0.2-1.3)
AST 84 H U/L
(17-59)
01/17/24 20:40
01/17/24 20:40
Vital Signs
Initial and Last Documented VS:
Initial Vital Signs
Temp Pulse Resp BP Pulse Ox
36.4 C 180 24 111/75 89
01/17/24 19:33 01/17/24 19:33 01/17/24 19:33 01/17/24 19:33 01/17/24 19:33
Last Documented Vital Signs
Temp Pulse Resp BP Pulse Ox
36.8 C 80 20 97/65 92
01/17/24 22:15 01/17/24 22:10 01/17/24 22:10 01/17/24 22:05 01/17/24 22:10
Procedures
Cardioversion
Indication:: Afib
Performed by:: Dick Smallwood MD
Synchronized?: Yes
Energy Used: 200 joules
Number of attempts: 1
Successful?: Yes
ASA Risk Score: Class III
Any reaction or bad outcome to prior sedation/anesthesia?: No history of a reaction
Sedation level to be attained: moderate
Chart and allergies reviewed: Yes
Patient reassessed prior to sedation: Yes
Time out completed at (validating right patient & procedure): 21:30
History of difficult intubation: No
Airway free of obstruction: Yes
Patient has a gag reflex: Yes
Patient is able to open mouth: Yes
Patient has no dentures: Yes
Patient has no loose teeth: Yes
Medication administered by Provider during Moderate Sedation: IV Propofol (mg)
Total dose administered: 60
Time drug administered: 21:30
Start Time: 21:30
Stop Time: 21:40
MDM/Problems Addressed
Differential Diagnosis Includes:
Symptomatic atrial fibrillation
MDM/Problems Addressed:
88-year-old male presents to the emergency room for evaluation of palpitations and shortness of breath consistent with his typical A-fib symptoms; did not improve despite taking an extra dose of diltiazem 30 mg and so he came to the emergency room
for assessment. He did notably have cardiac ablation yesterday morning. Vitals significant for tachycardia and mild tachypnea. EKG on arrival shows A-fib with RVR. Physical exam as above. Will place IV send labs including a CBC and a CMP. Case
discussed with cardiology for recommendations regarding rate control versus attempted ED cardioversion. Provide some IV fluids. Reassess after the above.
Case reviewed with cardiology�recommended attempted ED cardioversion. Discussed with patient he is agreeable. Will proceed with cardioversion attempt.
Labs reviewed: CBC shows marked leukocytosis, CKD essentially at baseline. Mild hyperglycemia nonfasting. Follow-up with PCP for repeat labs.
Patient successfully cardioverted as documented in procedure note. Will monitor status post cardioversion. Patient tolerated very well and is asymptomatic after cardioversion.
Observed after cardioversion patient remains awake and alert, asymptomatic. Requesting discharge. Stable for discharge will follow-up with cardiology as an outpatient. He feels comfortable with this plan. All questions answered.
Chronic conditions affecting care:
A-fib with RVR, interstitial lung disease
*Pulse Oximetry
Patient hypoxic: no
*EKG
Interpreted by ED Provider?: Yes
Comparison EKG: changes noted (Now in A-fib with RVR)
Heart Rate: 154
Rate: tachycardiac
Rhythm: a-fib
[place]: left axis deviation
Interval: normal interval
QRS Pattern: left bundle branch block
Ischemia: non-specific ST changes
*Critical Care Note
Total Time (30-74mins, 75-104mins- exclusive of procedures): Not Applicable
Data Reviewed
Review of Other/Old Records Reveals: Labs and Records
Source: patient, records and family
Patient Management
Discussion with other providers: Ecommerce Analyst (Discussed with cardiology)
ED Attending Note
-
Portions of this chart may have been created with voice recognition software.� Occasional wrong word or��sound alike� substitutions may have occurred due to the inherent limitations of voice recognition software.
Discharge Plan
Departure
Patient Disposition: Home (Routine Discharge)
Date of Disposition: 01/17/24
Time of Disposition: 22:55
Patient with high blood pressure during this ER visit?: No
Discharge Problem:
Atrial fibrillation status post cardioversion
Instructions: Atrial Fibrillation (DC)
Prescriptions:
No Action
finasteride 5 MG tablet
5 mg PO HS
simvastatin 10 MG tablet
10 mg PO HS
Patient Comments:
01/17/24: Substituted for Atorvastatin 10mg HS.
Eliquis 5 mg Tablet
2.5 mg PO BID
sulfamethoxazole-trimethoprim [Bactrim DS] 800-160 mg Tablet
1 tab PO MOWEFR
Rx Instructions:
01/16/24- Per [employer]ant- will finish within a week
Keytruda 25 mg/mL Solution
200 mg IV Q3W
docusate sodium 100 mg Capsule
100 mg PO BID 30 Days Qty: 60 0RF
diltiazem HCl 120 mg Capsule,Extended Release 24hr
120 mg PO BID Qty: 60 0RF
diltiazem HCl 30 mg Tablet
30 mg PO TID PRN (Reason: racing heartbeat) Qty: 60 0RF
prednisone 10 mg Tablet
20 mg PO .TAPER Qty: 0 0RF
Patient Comments:
01/16/24- down to 10mg daily, on day 4, will finish Thursday 01/25
Referrals:
Brant Kruse MD [Family Provider] -
Richardson Ring MD [Active] - Call in 1-3 days for appt
Activity Restrictions/Additional Instructions:
Thank you for visiting the Emergency Department at [facility].
1. Please schedule a follow up appointment as directed. Call first thing tomorrow morning to make an appointment.
2. If indicated, please take your medications as instructed and indicated on discharge paperwork.
3. If any of your symptoms do not improve, or persist, or become more severe within 6-12 hours, please return to the emergency department for further care.
4. Please return to the emergency department if you develop a headache, neck pain/stiffness, fever greater than 100.4F, chest pain, shortness of breath, persistent nausea, vomiting, slurred speech, difficulty walking, numbness/tingling, weakness,
signs of infection or any other symptoms that are worrisome to you.
Please call [phone] if you have any questions.
Interventions
Interventions:
*Risk Screen - Suicide Last Done: 01/17/24 19:33
*General Assessment Last Done: 01/17/24 19:33
*Neglect/Abuse Screening Last Done: 01/17/24 19:33
ED- Fall Risk Assessment Last Done: 01/17/24 20:01
*ED COVID-19 Vaccine History Last Done: 01/17/24 20:02
ED- Cardiac Assessment Last Done: 01/17/24 19:57
ED- Pulmonary Assessment Last Done: 01/17/24 20:01
Discharge Date and Time
Print Language: SYRIAC
[2024-01-17 20:50] LABS: % Basophils 0.2 % (0-2); % Eosinophils 0.1 % (0-6); % Immature Granulocytes 0.3 % (0-0.5); % Lymphocytes 10.1 % (20.5-51.1); % Monocytes 3.5 % (1.7-9.3); % Neutrophils 85.8 % (42.2-75.2); Absolute Lymphocytes 1.3 10^3/uL (1.2-3.4); Absolute Monocytes 0.5 10^3/uL (0.1-0.6); Hematocrit 37.6 % (39.0-52.0); Mean Corp Hgb Conc. 34.6 g/dL (33.0-37.0); Mean Corpuscular Hgb 30.2 pg (27.0-31.0); Mean Corpuscular Volume 87.2 fL (80.0-94.0); Mean Platelet Volume 9.7 fL (7.4-10.4); Nucleated Red Blood Cells % 0 % (-); Platelet Count 187 10^3/uL (130-400); Red Blood Cell Count 4.31 10^6/uL (4.70-6.10); Red Cell Dist. Width 14.9 % (11.5-14.5); White Blood Cell Count 12.8 10^3/uL (4.8-10.8)
[2024-01-17 21:09] LABS: ALT (SGPT) 26 U/L (0-50); AST (SGOT) 84 U/L (17-59); Albumin 3.9 g/dl (3.5-5.0); Alkaline Phosphatase 69 U/L (38-126); Blood Urea Nitrogen 44 mg/dl (9-20); Calcium 9.2 mg/dl (8.4-10.2); Carbon Dioxide 20 mmol/L (22-30); Chloride 103 mmol/L (98-107); Glucose 180 mg/dl (70-99); Magnesium 1.9 mg/dl (1.6-2.3); Potassium 4.3 mmol/L (3.5-5.1); Sodium 139 mmol/L (135-145); Total Bilirubin 1.4 mg/dl (0.2-1.3); Total Protein 6.8 g/dl (6.3-8.2); eGFR 38.78
[2024-01-17] MEDS: NSS 500 IV (21:12)
[2024-01-17] MEDS: DIPRIVAN 60 MG IV (21:52)
== END 2024-01-17 22:04 | disposition home or self-care (01) ==
LOC: EMR 19:30
PROVIDERS: EMERGENCY PHYSICIAN Emergency Medicine; FAMILY PHYSICIAN Internal Medicine
DX: I48.91 Unspecified atrial fibrillation (principal); E78.00 Pure hypercholesterolemia, unspecified; J84.9 Interstitial pulmonary disease, unspecified; J96.10 Chronic respiratory failure, unspecified whether with hypoxia or hypercapnia; Z79.01 Long term (current) use of anticoagulants; Z87.442 Personal history of urinary calculi; Z95.2 Presence of prosthetic heart valve; Z95.5 Presence of coronary angioplasty implant and graft; Z99.81 Dependence on supplemental oxygen
CPT/HCPCS: 80053; 83735; 85025; 92960; 93005; 96374; 99284

== ENCOUNTER 2024-01-18 13:33 | Inpatient (IN) | payer OTHER, SELFPAY ==
[2024-01-18] VITALS (37 sets, daily range): BP systolic 77–133; BP diastolic 54–91; BMI 28.1; BMI 27.0
--- NOTE | 2024-01-18 10:16 | ED.GENMED ---
History of Present Illness
<Derek Melvin PA-C - Last Filed: 01/18/24 12:37>
General
Chief Complaint: Breathing Problem
Source: patient
Exam Limitations: none
Time Seen by Provider: 01/18/24 09:58
History of Present Illness
History of Present Illness:
88-year-old male with history of A-fib, recent ablation and cardioversion, interstitial lung disease on Eliquis presents complaining of shortness of breath onset last evening. He was here last evening for cardioversion. Shortness of breath
persisted. Is getting low oxygen readings at home. He denies chest pain. No leg swelling. No known weight gain.
Past History
<Derek Melvin PA-C - Last Filed: 01/18/24 12:37>
Past History
ED Past Medical History: Arrthythmia (On Eliquis), Cancer, COPD, Hypercholesterolemia, Valvular disease, Other (Kidney stones) and Other (Recently diagnosed with interstitial lung disease 08/2023 on home oxygen 3 L/min)
ED Past Surgical History: Cardiac (Porcine valve replacement), Orthopedic and Other (Cystoscopy with ureteral stone removal, and stent placement)
Social History
Tobacco: Non-smoker
Alcohol: Occasional
Drug: None
Personal:
Living: with family
Employment: Retired
Family History
Family History: Negative CAD
Phy Exam
<Derek Melvin PA-C - Last Filed: 01/18/24 12:37>
Physical Exam
Physical Exam:
General: Well-developed male with increased work of breathing
HEENT normocephalic atraumatic neck is supple
Heart: Regular rate and rhythm
Lungs: Clear bilaterally without any rales
Abdomen is soft nontender nondistended
Extremities: No cyanosis or edema
Scores
<JONO Barrientos Last Filed: 01/18/24 12:37>
Heart Failure Risk
Heart Failure Risk Score: Not Applicable
Course
<Derek Melvin PA-C - Last Filed: 01/18/24 12:37>
Orders/Labs/Results
Orders:
Orders
01/18/24 09:15
Electrocardiogram (*1) Urgent
Reason for Study: Shortness of Breath
EKG- Treatment ONCE
01/18/24 10:15
CR Chest - 2 Views Urgent
Comment:
Reason For Exam: sob
01/18/24 10:17
COVID-19 Antigen Urgent
Source: Nasal Swab
Complete Blood Count/With Diff Urgent
Comprehensive Metabolic Panel Urgent
NT-proBNP Urgent
Influenza A+B Rapid Molecular Urgent
MARYANN Source: Nasal Swab
Specimen Description:
01/18/24 12:02
Furosemide [Lasix] 40 mg IV NOW STA
01/18/24 12:07
Cefepime HCl [Maxipime] 2,000 mg IV NOW STA
Vancomycin [Vancocin] 2,000 mg 0.9% Sodium Chloride 500 ml [Nss] 500 ml IV NOW
01/18/24 12:18
Electrocardiogram (*1) Urgent
Reason for Study: Bradycardia / Tachycardia
EKG- Treatment ONCE
01/18/24 12:19
Diltiazem HCl [Cardizem] 15 mg IV NOW STA
01/18/24 12:30
Diltiazem 125 mg/125 ml Nss [Cardizem] 125 mg in 125 ml IV PER PROTOCOL
Initial dose in mg/hr, then titrate:: 5
Titrate to keep:: Heart rate 80-100 bpm
Titrate by mg/hr:: 5 mg/hr
Frequency of titrations (minutes):: 15
Maximum dose in mg/hr:: 15
Abnormal Lab Results
01/18/24
10:17
WBC 11.5 H 10^3/uL
(4.8-10.8)
RBC 4.10 L 10^6/uL
(4.70-6.10)
Hgb 12.6 L g/dL
(13.0-18.0)
Hct 37.3 L %
(39.0-52.0)
RDW 15.2 H %
(11.5-14.5)
Abs Immat Gran (auto) 0.1 H 10^3/uL
(0-0.05)
Absolute Neuts (auto) 9.2 H 10^3/uL
(1.4-6.5)
Absolute Monos (auto) 0.7 H 10^3/uL
(0.1-0.6)
Neutrophils % 80.0 H %
(42.2-75.2)
Lymphocytes % 12.9 L %
(20.5-51.1)
BUN 40 H mg/dl
(9-20)
Creatinine 1.6 H mg/dL
(0.7-1.3)
Glucose 140 H mg/dl
(70-99)
Total Protein 6.0 L g/dl
(6.3-8.2)
Albumin 3.3 L g/dl
(3.5-5.0)
01/18/24 10:17
01/18/24 10:17
Vital Signs
Initial and Last Documented VS:
Initial Vital Signs
Temp Pulse Resp BP Pulse Ox
98.2 F 95 24 92/54 88
01/18/24 09:16 01/18/24 09:16 01/18/24 09:16 01/18/24 09:16 01/18/24 09:16
Last Documented Vital Signs
Temp Pulse Resp BP Pulse Ox
98.2 F 142 14 133/91 95
01/18/24 09:16 01/18/24 12:28 01/18/24 12:00 01/18/24 12:28 01/18/24 12:00
<Richardson Marte MD - Last Filed: 01/18/24 12:51>
Orders/Labs/Results
Orders:
Orders
01/18/24 09:15
Electrocardiogram (*1) Urgent
Reason for Study: Shortness of Breath
EKG- Treatment ONCE
01/18/24 10:15
CR Chest - 2 Views Urgent
Comment:
Reason For Exam: sob
01/18/24 10:17
COVID-19 Antigen Urgent
Source: Nasal Swab
Complete Blood Count/With Diff Urgent
Comprehensive Metabolic Panel Urgent
NT-proBNP Urgent
Influenza A+B Rapid Molecular Urgent
MARYANN Source: Nasal Swab
Specimen Description:
01/18/24 12:02
Furosemide [Lasix] 40 mg IV NOW STA
01/18/24 12:07
Cefepime HCl [Maxipime] 2,000 mg IV NOW STA
Vancomycin [Vancocin] 2,000 mg 0.9% Sodium Chloride 500 ml [Nss] 500 ml IV NOW
01/18/24 12:18
Electrocardiogram (*1) Urgent
Reason for Study: Bradycardia / Tachycardia
EKG- Treatment ONCE
01/18/24 12:19
Diltiazem HCl [Cardizem] 15 mg IV NOW STA
01/18/24 12:30
Diltiazem 125 mg/125 ml Nss [Cardizem] 125 mg in 125 ml IV PER PROTOCOL
Initial dose in mg/hr, then titrate:: 5
Titrate to keep:: Heart rate 80-100 bpm
Titrate by mg/hr:: 5 mg/hr
Frequency of titrations (minutes):: 15
Maximum dose in mg/hr:: 15
Abnormal Lab Results
01/18/24
10:17
WBC 11.5 H 10^3/uL
(4.8-10.8)
RBC 4.10 L 10^6/uL
(4.70-6.10)
Hgb 12.6 L g/dL
(13.0-18.0)
Hct 37.3 L %
(39.0-52.0)
RDW 15.2 H %
(11.5-14.5)
Abs Immat Gran (auto) 0.1 H 10^3/uL
(0-0.05)
Absolute Neuts (auto) 9.2 H 10^3/uL
(1.4-6.5)
Absolute Monos (auto) 0.7 H 10^3/uL
(0.1-0.6)
Neutrophils % 80.0 H %
(42.2-75.2)
Lymphocytes % 12.9 L %
(20.5-51.1)
BUN 40 H mg/dl
(9-20)
Creatinine 1.6 H mg/dL
(0.7-1.3)
Glucose 140 H mg/dl
(70-99)
Total Protein 6.0 L g/dl
(6.3-8.2)
Albumin 3.3 L g/dl
(3.5-5.0)
01/18/24 10:17
01/18/24 10:17
Vital Signs
Initial and Last Documented VS:
Initial Vital Signs
Temp Pulse Resp BP Pulse Ox
98.2 F 95 24 92/54 88
01/18/24 09:16 01/18/24 09:16 01/18/24 09:16 01/18/24 09:16 01/18/24 09:16
Last Documented Vital Signs
Temp Pulse Resp BP Pulse Ox
98.2 F 142 14 133/91 95
01/18/24 09:16 01/18/24 12:28 01/18/24 12:00 01/18/24 12:28 01/18/24 12:00
<Derek Melvin PA-C - Last Filed: 01/18/24 12:37>
MDM/Problems Addressed
Differential Diagnosis Includes:
Shortness of breath acute. History of chronic interstitial lung disease, history of paroxysmal A-fib with recent cardiac ablation and cardioversion performed last evening. Currently in a sinus rhythm but requiring 4 L of oxygen to maintain 92 to
93%. Typically patient is not on oxygen. He does not appear volume overloaded. Unlikely be PE secondary to anticoagulated state
Labs pending, BNP and CXR. COVID pending
<Derek Melvin PA-C - Last Filed: 01/18/24 12:37>
*Critical Care Note
Total Time (30-74mins, 75-104mins- exclusive of procedures): Not Applicable
<Derek Melvin PA-C - Last Filed: 01/18/24 12:37>
Update Note
Update Note:
Chest x-ray with opacity in the left lung likely representing pneumonia with potential underlying pulmonary edema. After discussing this information with the patient, he went into rapid A-fib. Diltiazem was ordered to control rate. Will hold off
on cardioversion as he was just cardioverted less than 24 hours ago. He had an ablation 2 days ago as well. Vancomycin and cefepime ordered for the potential pneumonia Lasix also added. Admitted to hospitalist service. Discussed with ED attending
ED Attending Note
<Derek Melvin PA-C - Last Filed: 01/18/24 12:37>
-
Portions of this chart may have been created with voice recognition software.� Occasional wrong word or��sound alike� substitutions may have occurred due to the inherent limitations of voice recognition software.
<Richardson Marte MD - Last Filed: 01/18/24 12:51>
ED Attending Note
Patient seen and examined by attending physician: Yes
I performed the substantive portion of visit, reviewed & personally made and approve the management plan that is documented in note by myself or RANJANA.: Yes
ED Attending Note:
Patient with a cardioversion yesterday after going into atrial fibrillation. Recent ablation. Today became hypoxic short of breath. Some sputum. No pleuritic pain.
On exam patient is nontoxic in no distress. Initially normal sinus rhythm. Now in a atrial fibrillation with RVR. Mildly hypoxic. Lungs with dry crackles in the bases and mild wheezing in the base. Warm and dry. Perfusing well.
Previous testing reviewed. Initially normal sinus rhythm with an x-ray consistent with a pneumonia or asymmetrical CHF. Elevation of proBNP. However patient went into atrial fibrillation here. Feel rate control would be more appropriate than a
another cardioversion. Also will cover with antibiotics for probable pneumonia. Discussed with hospitalist. Will also get cardiology involved.
Discharge Plan
Departure
Patient Disposition: Admit
Date of Disposition: 01/18/24
Time of Disposition: 12:36
Admit to: Telemetry
Presentation/result/management discussed w/ accepting MD/DO: Hospitalist
Discharge Problem:
Pneumonia, Atrial fibrillation, rapid
Prescriptions:
No Action
finasteride 5 MG tablet
5 mg PO HS
simvastatin 10 MG tablet
10 mg PO HS
Patient Comments:
01/17/24: Substituted for Atorvastatin 10mg HS.
Eliquis 5 mg Tablet
2.5 mg PO BID
sulfamethoxazole-trimethoprim [Bactrim DS] 800-160 mg Tablet
1 tab PO MOWEFR
Rx Instructions:
01/16/24- Per [employer] Trimmer- will finish within a week
Keytruda 25 mg/mL Solution
200 mg IV Q3W
docusate sodium 100 mg Capsule
100 mg PO BID 30 Days Qty: 60 0RF
diltiazem HCl 120 mg Capsule,Extended Release 24hr
120 mg PO BID Qty: 60 0RF
diltiazem HCl 30 mg Tablet
30 mg PO TID PRN (Reason: racing heartbeat) Qty: 60 0RF
prednisone 10 mg Tablet
20 mg PO .TAPER Qty: 0 0RF
Patient Comments:
01/16/24- down to 10mg daily, on day 4, will finish Thursday 01/25
Referrals:
Brant Kruse MD [Family Provider] -
Interventions
Interventions:
*Risk Screen - Suicide Last Done: 01/18/24 10:30
*General Assessment Last Done: 01/18/24 10:30
*Neglect/Abuse Screening Last Done: 01/18/24 10:30
ED- Cardiac Assessment Last Done: 01/18/24 10:30
ED- Pulmonary Assessment Last Done: 01/18/24 10:30
Discharge Date and Time
Print Language: BELIZEAN
[2024-01-18 10:41] LABS: % Basophils 0.3 % (0-2); % Eosinophils 0.3 % (0-6); % Immature Granulocytes 0.5 % (0-0.5); % Lymphocytes 12.9 % (20.5-51.1); Absolute Immature Granulocytes 0.1 10^3/uL (0-0.05); Absolute Lymphocytes 1.5 10^3/uL (1.2-3.4); Absolute Monocytes 0.7 10^3/uL (0.1-0.6); Absolute Neutrophils 9.2 10^3/uL (1.4-6.5); Hematocrit 37.3 % (39.0-52.0); Hemoglobin 12.6 g/dL (13.0-18.0); Mean Corp Hgb Conc. 33.8 g/dL (33.0-37.0); Mean Corpuscular Hgb 30.7 pg (27.0-31.0); Mean Platelet Volume 9.5 fL (7.4-10.4); Nucleated Red Blood Cells % 0 % (-); Platelet Count 173 10^3/uL (130-400); Red Cell Dist. Width 15.2 % (11.5-14.5); White Blood Cell Count 11.5 10^3/uL (4.8-10.8)
[2024-01-18 10:56] LABS: ALT (SGPT) 24 U/L (0-50); AST (SGOT) 59 U/L (17-59); Albumin 3.3 g/dl (3.5-5.0); Alkaline Phosphatase 51 U/L (38-126); Blood Urea Nitrogen 40 mg/dl (9-20); Calcium 8.8 mg/dl (8.4-10.2); Carbon Dioxide 28 mmol/L (22-30); Chloride 104 mmol/L (98-107); Glucose 140 mg/dl (70-99); Potassium 3.9 mmol/L (3.5-5.1); Sodium 140 mmol/L (135-145); Total Bilirubin 0.9 mg/dl (0.2-1.3)
[2024-01-18 10:59] LABS: COVID-19 Antigen Negative (Negative)
[2024-01-18 11:05] LABS: NT-proBNP 2480 pg/ml
[2024-01-18] MEDS: CARDIZEM 15 MG IV (12:28)
[2024-01-18] MEDS: CARDIZEM 125 IV (12:29)
--- NOTE | 2024-01-18 12:35 | HPS.HSE ---
Family Physician
-
Family Physician: Brant Kruse
Chief Complaint
-
sob
cough
History of Present Illness
88-year-old male with history of A-fib, recent ablation and cardioversion, interstitial lung disease, atrial fib on Eliquis, urothelial ca on PAD-CEV and Keytruda, BPH presented to us with cough with thick dark yellowish sputum since last night.
patient woke up very sob. he has been using his PRN oxygen more than usual for past few days. today his pulse ox was in 80's and dipped down to 50's on RA.patient stated very weak. denied fever,chills, chest pain. denied ANDREW, dizzy or syncopal
episode.denied abdominal pain,n,v,d. denied dysuria or hematuria.patient denied LE edema or weigh gain.
He was here last evening for cardioversion. patient was discharged on 01/16 after cardiac ablation.
chest x ray with pneumonia, BNP 2480. patient was also noted in atrial fib with RVR. initiated on iv cefepime and vanco. patient also on Cardizem drip for atrial fib
admitting for further management.
Medical History
Past Medical History
Past Medical History: Reports Other
Additional Past Medical History:
bladder cancer
atrial fib
BPH
ILD
chornic hypoxic respiratory failure
urothelial cancer
Past Surgical History: Reports Other
Additional Past Surgical History:
atrial valve repair
cardioversion
inguinal hernia repair
ureterectomy
Social History
Tobacco: Non-smoker
Alcohol: None
Drug: None
Personal:
Living: With Family
Family History
Family History: Not pertinent
Allergies / Home Medications
Allergies reflects when Allergies were last updated in [facility].
Home Medications with original date entered in [facility]
Allergy/Medication List:
Allergies
Allergy/AdvReac Type Severity Reaction Status Date / Time
No Known Allergies Allergy Verified 01/16/24 08:18
Home Medications
finasteride 5 mg tablet 5 mg PO HS prostate 05/25/10
simvastatin 10 mg tablet 10 mg PO HS High cholesterol 09/04/19
apixaban 5 mg tablet (Eliquis) 2.5 mg PO BID Blood Clot Prevention/Tx 09/17/23
pembrolizumab 25 mg/mL intravenous solution (Keytruda) 200 mg IV Q3W 12/24/23
sulfamethoxazole 800 mg-trimethoprim 160 mg tablet (Bactrim DS) 1 tab PO MOWEFR pneumonia 12/24/23
diltiazem HCl 120 mg capsule,extended release 24 hr 120 mg PO BID #60 caps 12/27/23
diltiazem HCl 30 mg tablet 30 mg PO TID PRN racing heartbeat #60 tabs 12/27/23
docusate sodium 100 mg capsule 100 mg PO BID 30 days #60 caps 12/27/23
prednisone 10 mg tablet 20 mg (2 x 10 mg) PO .TAPER #0 tabs 01/17/24
Review of Systems
-
Constitutional: Reports No Symptoms
EENT: Reports No Symptoms
Respiratory: Reports Cough and Trouble Breathing
Cardiac: Reports No Symptoms
Abdomen/GI: Reports No Symptoms
: Reports No Symptoms
Musculoskeletal: Reports No Symptoms
Skin: Reports No Symptoms
Neurological: Reports Weakness
Endocrine: Reports No Symptoms
Hematologic/Lymphatic: Reports No Symptoms
Psych: Reports No Symptoms
Physical Exam
Vital Signs
Vital Signs
Temp Pulse Resp BP Pulse Ox
98.2 F 142 14 133/91 95
01/18/24 09:16 01/18/24 12:28 01/18/24 12:00 01/18/24 12:28 01/18/24 12:00
Physical Exam
General: Well Developed, Well Nourished and No Apparent Distress
HEENT: NormoCephalic, Moist mucous membranes and Atraumatic
Respiratory: Rhonchi
Cardiac: S1/S2 and Regular Rhythm; No Murmur or Rub
GI: Soft, Non Tender, Non Distended and Normal Bowel Sounds; No Organomegaly
Rectal: Deferred by Provider
Musculoskeletal: No Clubbing, No Cyanosis and No Edema
Skin: No Rash
Neuro: AO x 3 and Nonfocal/grossly intact
Psych: Calm
Laboratory Results
-
01/18/24 10:17
01/18/24 10:17
Laboratory Results
Total Bilirubin 0.9 mg/dl (0.2-1.3) 01/18/24 10:17
AST 59 U/L (17-59) 01/18/24 10:17
ALT 24 U/L (0-50) 01/18/24 10:17
Alkaline Phosphatase 51 U/L (38-126) 01/18/24 10:17
Data Reviewed
-
Diagnostic Radiology: Report Reviewed by me
Lab Data: Labs Reviewed by me
Impression/Plan
-
#acute on chronic hypoxic respiratory failure multifactorial likely pneumonia
#hx of ILD
-continue supplemental oxygen to keep sat >92
-patient uses 2.5prn baseline for sob but at present requiring 6l of oxygen
-wean as tolerated
-nebs prn for sob and wheezing
-vanco and Zosyn continued
-wbc 11.5
-obaine urine legionella,strep pneumoniae, MRSA
-covid negative, influenza
-chest x ray with Left lower lobe pneumonia superimposed upon chronic interstitial fibrosis
-Tylenol prn of fever
#CKD stage 3b
-cr 1.6
-ctm
#atrial fib with RVR
-cardioversion last night
-ablation 2 days ago.
-EKG with atrial fib with RVR
-Cardizem continued
-eliquis continued
#Bladder cancer s/p L robotic nephroureterectomy 09/20/2022, multiple TURBTs with new bladder tumors s/p resection
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
-PadCev 12/19/23 weekly with Keytruda q 21 days, prednisone and Bactrim m,w,f
#h/o nephrolithiasis with stone removal and stent placement
#h/o aortic valve replacement 2007
#HLD
-statin continued
#
#BPH
-finasteride continued
#DVT prophylaxis
-eliquis
#CODE status
-full code
--- NOTE | 2024-01-18 13:08 | EDRN ---
IVT consulted to access SQ port
[2024-01-18] MEDS: VANCOCIN 540 MG IV (13:14)
[2024-01-18] MEDS: MAXIPIME 2000 MG IV (13:16)
--- NOTE | 2024-01-18 13:23 | W.PN.UPDATE ---
Update Note
Progress Note Update
This is an addendum to the H&P written by Nory Mcclain on 01/18/2024.� Patient seen and examined independently with FLORAL MERCHANDISER.
88-year-old male past medical history of atrial fibrillation/flutter with loop recorder, SVT/atrial tachycardia status post ablation/cardioversion on Eliquis, aortic valve replacement, interstitial lung disease on 3 L oxygen baseline, bladder cancer
status post robotic nephroureterectomy, multiple TURBTs, with new bladder tumor status post resection, metastatic urothelial cancer metastases to lung on PdCev and Keytruda, nephrolithiasis, CKD 3B, hyperlipidemia, BPH, presenting for shortness of
breath since last evening and hypoxia.
He was discharged yesterday for symptomatic atrial tachycardia status post complex ablations on 01/15.� Because of shortness of breath his prednisone was increased to 20 mg.
He came back to the emergency room for palpitations or shortness of breath.� Patient underwent cardioversion in the emergency room with successful conversion to sinus.
Patient arrives in atrial fibrillation with RVR with rate up to 147.� At this time chest x-ray shows left lower lobe pneumonia superimposed on chronic interstitial fibrosis.� Labs show leukocytosis.� Renal function at baseline.� Cardiac BNP of 2400.
Patient started on Cardizem drip.�Start vancomycin/Zosyn for hospital-acquired pneumonia coverage given frequent admissions.� Check Sputum, MRSA, Strep and Legionella.�Cardiology consulted.
--- NOTE | 2024-01-18 14:53 | PHA.VAN.IN ---
Assessment
- Assessment
Renal Function: Appears similar to baseline
Maximum Temperature: 98.2
Minimum Temperature: 98.2
Concomitant Antimicrobials: Piperacillin/Tazobactam
Plan
- Plan
Initial / Loading Dose: 2000mg
Maintenance Regimen: Dose by level
Monitoring: Random with am labs
Pharmacokinetics Vancomycin I
- -
Patient Age: 88
Patient Sex: Male
Vancomycin Day #: 1
Indication: Pulmonary/Respiratory
Requesting Provider: Va
Pertinent Antimicrobial Allergies:
NKDA
Height / Weight:
Height 6 ft
Actual Weight 93.8 kg
Pertinent Past Medical History: Bladder cancer
- Vital Signs / Lab Results
Temp Pulse Resp BP Pulse Ox
98.2 F 120 34 103/58 95
01/18/24 09:16 01/18/24 13:45 01/18/24 13:45 01/18/24 13:45 01/18/24 13:45
Lab Results - Hematology
01/18/24
10:17
WBC 11.5 H
Lab Results - Chemistry
01/18/24
10:17
BUN 40 H
Creatinine 1.6 H
Albumin 3.3 L
Microbiology Results
01/18/24 10:17 Influenza Types A & B (MIO) - Final
Nasal Swab Negative for Influenza A & B, NAAT
Negative results must be combined with clinical observations
and patient history.
Nucleic Acid Amplification test (NAAT)performed on the
[employer] platform.
--- NOTE | 2024-01-18 15:00 | PTCARENOTE ---
Received patient from ED. Patient appears to be in SR on monitor and per EKG. Per cardiology, patient still in 2:1 Flutter. Restarted Cardizem drip at 10. (Had been on 12 when patient arrived from ED). Continues on 12L Midflow. Has R CW Port and R
FA IV, both patent. Skin intact besides various bruises.
--- NOTE | 2024-01-18 15:16 | CON.CAR ---
Addendum entered and electronically signed by Juan Antonio Reynoso MD 01/18/24 17:27:
Medically complex 88-year-old man admitted now with atrial fibrillation/flutter and rapid ventricular response following ablation of 3 left atrial tachycardias, 2 right atrial tachycardias on January 14. He has a history of amiodarone pulmonary
toxicity. He was discharged on the but returned for cardioversion and was discharged and then returned again with shortness of breath and cough. Since then he has had intermittent atrial flutter and possibly atrial fibs with rapid ventricular
response. Currently on Bactrim 3 days a week pneumonia prophylaxis in the setting of immunosuppression.
PMH: Paroxysmal atrial fibs/flutter/tachycardia, PVI 2020 with posterior left atrial wall ablation and right atrial tach ablation June 2021, failed sotalol and suspected pulmonary toxicity on amiodarone, interstitial lung disease on home O2,
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 CKD, aortic valve replacement 2007, hyperlipidemia
Allergies: None
Current medications: Mucinex, vancomycin, apixaban 2.5 mg twice daily, Proscar, atorvastatin 10 nightly, piperacillin
104/83, pulse 83, respirate 15, afebrile, sats 93%, head neck exam unremarkable, lungs decreased breath sounds left base/mid lung, JVD okay, soft systolic murmur at base and apex, extremities without clubbing cyanosis or edema
EKG with atrial tachycardia/flutter with 2 1 block, sinus rhythm, possibly A-fib with RVR versus atrial tach with predominant one-to-one conduction, LVH, QRS widening, repolarization abnormality, left axis deviation
chest x-ray with infiltrate/effusion left lung
White count 11.5, hemoglobin 12.6, BUN and creatinine 40 and 1.6, creatinine is at baseline, proBNP 2480, had been 767 in September 2023, troponin not checked
Impression:
L PNA
2:1 aflutter
Paroxysmal afib/aflutter/atach
s/p PVI 10/08/2019
s/p PVI, posterior wall ablation, mitral annular flutter ablation 11/17/2020
s/p posterior L atrial wall ablation, right atrial tachycardia ablation 06/30/2021
Failed sotalol
Chronic amiodarone therapy from 01/2022 until 09/12/23, stopped due to amio lung toxicity
s/p Medtronic loop recorder 11/15/23
s/p complex ablation of 3 left atrial tachycardias and 2 right atrial tachycardias and SVT 01/16/2024
A-fib recurrence 01/17/2024 status post successful cardioversion in ERChronic anticoagulation with Eliquis
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
Bladder cancer s/p L robotic nephroureterectomy 09/20/2022, multiple TURBTs with new bladder tumors s/p resection
New metastatic disease to lung, started PadCev 12/19/23 weekly with keytruda q 21 days first dose 12/19/23, also prednisone and bactrim m,w,f
h/o nephrolithiasis with stone removal and stent placement
Chronic renal insufficiency
h/o aortic valve replacement 2007
HLD
BPH
Recent fall with chin laceration 12/2023
ECHO 09/05/23: EF 60 to 65%, stage III diastolic dysfunction, mild concentric LVH, dilated RV, severely dilated atria, mild to moderate MR, well-seated #23 AVR with peak/mean gradients 10/5 mmHg, moderate TR, PAP 57 mmHg
Plan:
He presents with what is likely pneumonia 3 days following an ablation, possibly with an element of HFpEF. Currently he is receiving Keytruda and Padcev for metastatic transitional cell carcinoma of the bladder. He is also on Bactrim for his
immunosuppressed state.
He has recurrent atrial arrhythmias following his ablation, and is not a candidate for sotalol or amiodarone.
He has received IV Lasix, we may give additional Lasix based on his clinical progress.
.
Antiarrhythmic therapy is indicated at this time. Discussed with electrophysiology and we will start dofetilide 250 mcg twice daily. We called the [facility] who prescribed Bactrim. This must be discontinued given an interaction
with dofetilide. They are comfortable stopping Bactrim provided prednisone is less than 20 mg daily. Currently he is not on prednisone.
Original Note:
Consultation
Consultation Request
Date/Time Consultation Performed: 01/18/24
Requesting Provider: Dr. De Dios
Performing Provider: Lucia Granda PA-C for Dr. AMILCAR Reynoso
Reason for Consultation: afib, PNA
Medical History
-
Chief Complaint: SOB
History of Present Illness:
Patient is an 88-year-old male with past medical history of aortic valve replacement in 2007, paroxysmal A-fib/a flutter/A. tach status post 3 ablations, CKD, bladder cancer with new lung mets. He was previously on sotalol, however failed with
breakthrough. He was then transitioned to amiodarone 01/2022. He then had issues with shortness of breath/abnormal chest CT and amiodarone was stopped 09/12/23 due to concerns for Amio lung toxicity. He is not a ideal candidate for beta-nelia
due to underlying pulmonary issues. He reports he had a second opinion at [facility] and they noted 2 cm shadowing on lung imaging. He has history of bladder cancer status post left robotic nephroureterectomy in 2022 with several bladder tumor removal
surgeries. The lung nodule was determined to be metastasis from urothelial cancer by bronchoscopy and he was started on weekly immunotherapy with Keytruda q 21 days. First dose was 12/19/2023. He is followed by Dr. Rubalcava. He is also on Prednisone 20
mg and Bactrim 3 times a week for prevention of pneumonitis/pneumonia ordered by Dr. Dixon, his teaching pastor at [facility].
He has had ongoing issues of palpitations and tachycardia. He underwent loop recorder implant 11/15/2023 for monitoring. He has had PAF/flutter/tachycardia/SVT and underwent ablation of 3 left atrial tachycardias and 2 right atrial tachycardias
01/16/2024. 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 He was discharged on 01/17/2024, however then returned to the ER later that evening with recurrence of
A-fib and was successfully cardioverted and discharged. He reports he continued with shortness of breath, and started with cough. He noted at home that his pulse oximeter was continuing to give him low readings despite increasing his home oxygen
and he returned to ER. Now diagnosed with pneumonia. Was also in rapid atrial fibrillation on arrival, now in 2-1 aflutter, rate controlled on IV diltiazem drip. Cardiology consulted for evaluation.
PMH:
Paroxysmal afib/aflutter/atach
s/p PVI 10/08/2019
s/p PVI, posterior wall ablation, mitral annular flutter ablation 11/17/2020
s/p posterior L atrial wall ablation, right atrial tachycardia ablation 06/30/2021
Failed sotalol
Chronic amiodarone therapy from 01/2022 until 09/12/23, stopped due to amio lung toxicity
s/p Medtronic loop recorder 11/15/23
s/p complex ablation of 3 left atrial tachycardias and 2 right atrial tachycardias and SVT 01/16/2024
A-fib recurrence 01/17/2024 status post successful cardioversion in ER
Chronic anticoagulation with Eliquis
Interstitial lung disease, on home O2
Bladder cancer s/p L robotic nephroureterectomy 09/20/2022, multiple TURBTs with new bladder tumors s/p resection
New metastatic disease to lung, started PadCev 12/19/23 weekly with keytruda q 21 days first dose 12/19/23, also prednisone and bactrim m,w,f
h/o nephrolithiasis with stone removal and stent placement
Chronic renal insufficiency
h/o aortic valve replacement 2007
HLD
BPH
Past Medical History
Past Medical History: Other (In HPI)
Past Surgical History: Cardiac (aortic valve replacement 2007, PVI 2019, PVI 2020, Ablation 2021,), Urological (s/p left nephroureterectmy 09/20/2022) and Other (Robotic partial prostatectomy 02/2020, bilateral robotic inguinal hernia repair 04/2020,
chemo port 12/08/2023)
Social History
Tobacco: Non-Smoker
Alcohol: Occasional
Personal:
Living: With Family
Employment: Retired
Family History
Family History: Reviewed & Not Pertinent
Allergies / Home Medications
Allergy/AdvReac Type Severity Reaction Status Date / Time
No Known Allergies Allergy Verified 01/16/24 08:18
�Medication �Instructions �Recorded �Confirmed �Type
finasteride 5 mg tablet 5 mg PO HS prostate 05/25/10 01/18/24 History
simvastatin 10 mg tablet 10 mg PO HS High cholesterol 09/04/19 01/18/24 History
apixaban 5 mg tablet (Eliquis) 2.5 mg PO BID Blood Clot 09/17/23 01/18/24 History
Prevention/Tx
pembrolizumab 25 mg/mL intravenous 200 mg IV Q3W 12/24/23 01/18/24 History
solution (Keytruda)
sulfamethoxazole 800 1 tab PO MOWEFR pneumonia 12/24/23 01/18/24 History
mg-trimethoprim 160 mg tablet
(Bactrim DS)
diltiazem HCl 120 mg 120 mg PO BID #60 caps 12/27/23 01/18/24 Rx
capsule,extended release 24 hr
Review of Systems
-
History Source: Patient
All other systems: Negative unless noted
Physical Exam
Vital Signs
Temp Pulse Resp BP Pulse Ox
98.2 F 94 28 115/73 95
01/18/24 09:16 01/18/24 14:49 01/18/24 14:45 01/18/24 14:49 01/18/24 14:30
Lab Results
01/18/24 10:17
01/18/24 10:17
Krc-F-[id number] Pept 2480 pg/ml 01/18/24 10:17
Physical Exam
General: No Apparent Distress, Comfortable and Other (on midflow O2)
HEENT: Normocephalic, Anicteric and Moist Mucous Membranes
Cardiac: S1/S2 and Irregular Rhythm
GI: Soft, Non Tender, Non Distended and Normal Bowel Sounds
Musculoskeletal: No Clubbing, No Cyanosis and No Edema
Skin: Warm, Dry and Other (ecchymoses of chin. ecchymoses of L wrist)
Neuro: AO x 3
Impression / Plan
-
PCP: Brant Kruse MD
Primary Foxing Cutting Machine Operator: Dr. Tomi Ring
Primary Lime Supervisor: Dr. Holly Dixon at [facility]
Impression:
Presentation with SOB, hypoxia
L PNA
2:1 aflutter
Paroxysmal afib/aflutter/atach
s/p PVI 10/08/2019
s/p PVI, posterior wall ablation, mitral annular flutter ablation 11/17/2020
s/p posterior L atrial wall ablation, right atrial tachycardia ablation 06/30/2021
Failed sotalol
Chronic amiodarone therapy from 01/2022 until 09/12/23, stopped due to amio lung toxicity
s/p Medtronic loop recorder 11/15/23
s/p complex ablation of 3 left atrial tachycardias and 2 right atrial tachycardias and SVT 01/16/2024
A-fib recurrence 01/17/2024 status post successful cardioversion in ER
Chronic anticoagulation with Eliquis
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
Bladder cancer s/p L robotic nephroureterectomy 09/20/2022, multiple TURBTs with new bladder tumors s/p resection
New metastatic disease to lung, started PadCev 12/19/23 weekly with keytruda q 21 days first dose 12/19/23, also prednisone and bactrim m,w,f
h/o nephrolithiasis with stone removal and stent placement
Chronic renal insufficiency
h/o aortic valve replacement 2007
HLD
BPH
Recent fall with chin laceration 12/2023
ECHO 09/05/23: EF 60 to 65%, stage III diastolic dysfunction, mild concentric LVH, dilated RV, severely dilated atria, mild to moderate MR, well-seated #23 AVR with peak/mean gradients 10/5 mmHg, moderate TR, PAP 57 mmHg
Plan:
-he underwent complex atach/SVT ablation 01/16/24, discharged 01/16. returned to ER 01/16 with recurrence of rapid afib. successfully CV in ER and discharged. then with persistent SOB and hypoxia. returned to ER 01/17 and with L PNA. was in rapid
afib, most recently in 2:1 aflutter, rate controlled on IV cardizem gtt. cardiology consulted for evaluation
-for now will continue IV/po cardizem
-follow on tele
-options discussed with EP. not candidate for amiodarone with prior lung toxicity/ILD. tikosyn is option for patient, however on bactrim MWF prescribed by teaching pastor at [facility], Dr. Aquino with last dose taken 01/17 at noon. will hold further
bactrim. reached out to Dr. Dixon to discuss, awaiting return phone call. may need inpatient pulm evaluation.
-ideally would start tikosyn 250mcg Q12H when safely able (CrCl 42, Cr 1.6). repeat EKG in AM to reassess QTc.
-continue eliquis 2.5mg BID
-treatment of pneumonia per primary service. prednisone dose increased to 20mg daily as of 01/15 due to hypoxia post ablation. he had been on 3L NC at home post ablation, currently on 15L.
-complex situation
-d/w nursing. d/w family at bedside
Data Reviewed
-
EKG: Tracing Personally Visualized and interpreted
Radiology: Report Reviewed by me
Medical Tests (Nuc Med, Echo etc): Report Reviewed by me
Labs: Labs Reviewed by me
Old Records: Reviewed
--- NOTE | 2024-01-18 16:44 | W.CARD.TIKOS ---
Initiate Tikosyn
-
I verify that the patient has not taken any verapamil (Isoptin/Calan), ketoconazole (Nizoral), cimetidine (Tagamet), trimethoprim (Trimpex), megesterol (Megace), prochlorperazine (Compazine), hydrochlorothiazide (HCTZ), dolutegravir (Tivicay) or any
Class I or Class III anti-arrhythmic within the last three days.
He has taken bactrim 01/18/24 @noon. Discussed with pharmacy and MD discussed with patient's critical systems technician and will be stopped. Tikosyn tentatively to start 2AM if QTc stable by AM EKG.
AND
I verify that the patient has not taken amiodarone within the last THREE months, or that the patient's amiodarone plasma concentration is <0.3 mcg/mL.
Creatinine 1.6 mg/dL (0.7-1.3) H 01/18/24 10:17
Does patient have a Ventricular Conduction Abnormality: Yes
I have assessed the baseline QTc interval (using QT for heart rate less than 60 bpm) and deemed the patient is appropriate for Dofetilide therapy. I understand that Tikosyn is contraindicated if the QTc is >440msec (500msec in patients with
ventricular conduction abnormalities).
Baseline QTc (in msec): 447
QTc interval is greater than 440msec without conduction abnormality OR greater than 500msec with a conduction abnormality, but acceptable to proceed per Cardiology attending.
Reason for Administration with Prolonged QTc: Other Atrial Arrhythmia
Ordering Physician: Juan Antonio Reynoso
[2024-01-18] MEDS: ZOSYN 50 IV ×2 (16:45→21:04)
[2024-01-18] MEDS: LIPITOR 10 MG PO (21:04)
[2024-01-18] MEDS: MUCINEX 600 MG PO (21:04)
[2024-01-18] MEDS: ELIQUIS 2.5 MG PO (21:04)
[2024-01-18] MEDS: PROSCAR 5 MG PO (21:05)
[2024-01-19] VITALS (49 sets, daily range): BP systolic 84–139; BP diastolic 53–89; BMI 27.1; BMI 26.7
--- NOTE | 2024-01-19 00:59 | PTCARENOTE ---
Cardizem gtt infusing finished infusing. No current order to continue. CM shows SR/Afib rate 80's. BP 106/78. Leslie SALAS TT'd and made aware. With pt appearing to be in SR with rates 80's-90's while hold Cardizem gtt for now and watch over next
couple hours. If need be will restart Cardizem gtt at 5ml/hr. Pt made aware. Will continue to monitor.
[2024-01-19] MEDS: ZOSYN 50 IV (03:38)
[2024-01-19 04:02] LABS: Hemoglobin 12.2 g/dL (13.0-18.0); Mean Corp Hgb Conc. 33.9 g/dL (33.0-37.0); Mean Corpuscular Hgb 31.4 pg (27.0-31.0); Mean Corpuscular Volume 92.8 fL (80.0-94.0); Mean Platelet Volume 9.6 fL (7.4-10.4); Platelet Count 153 10^3/uL (130-400); Red Blood Cell Count 3.88 10^6/uL (4.70-6.10); Red Cell Dist. Width 15.1 % (11.5-14.5); White Blood Cell Count 11.3 10^3/uL (4.8-10.8)
[2024-01-19 04:22] LABS: Vancomycin Random 9.8 ug/ml
[2024-01-19 04:26] LABS: Blood Urea Nitrogen 33 mg/dl (9-20); Calcium 8.4 mg/dl (8.4-10.2); Carbon Dioxide 26 mmol/L (22-30); Chloride 107 mmol/L (98-107); Estimated Creatinine Clearance 42 ml/min; Glucose 108 mg/dl (70-99); Potassium 4.7 mmol/L (3.5-5.1); Sodium 140 mmol/L (135-145); eGFR 48.95
[2024-01-19] MEDS: CARDIZEM 5 MG IV ×2 (06:44→06:55)
[2024-01-19] MEDS: CARDIZEM 125 IV ×2 (06:49→14:25)
--- NOTE | 2024-01-19 06:51 | W.PN.UPDATE ---
Update Note
Progress Note Update
This morning patient is a-fib 140s to 150s, bp 131/73. SPO2 88% Complained SOB, some chest discomfort. Ekg done.
No wheezing or crackle noted during the exam.
Cardizem bolus 5 mg IV given x2 and Cardizem gtt restarted.
mag, troponin added to the lab, and stat chest x-ray ordered.
Morning EKG was sent to Cardiology environmental services lead and updated.
--- NOTE | 2024-01-19 07:35 | PTCARENOTE ---
HR into 130-140's in Afib. Pt asymptomatic at first then c/o of chest pain/tightness 08/26. BP stable SBP 130's. POX 84% on 15L MF. Non-breather added with pox 95%. Leslie SALAS TT'd and made aware. Up to see pt. 5mg Cardizem bolus ordered and given
without good result. Cardizem gtt ordered and hung at ordered 10ml/hr. EKG obtained and Leslie SALAS updated Cardiology with EKG and communication. HR continued into 150's Afib. Second dose 5mg Cardizem bolus given. Day shift ETHEL Singh updated on pt's
status and interventions. Pt's discomfort currently at 03/28.
--- NOTE | 2024-01-19 09:14 | W.PN.HOSP.TC ---
Today's Communication/Plan
-
IV Lasix
Pulmonary consult
High flow oxygen
Trend troponins
Change antibiotics
Sputum culture
Assessment / Plan
Assessment / Plan
Gen-AAOx3, NAD
HEENT-NC, AT, anicteric, clear oral mm
Neck-supple
CV-reg, no M, +S1/S2
Lungs-mild bilateral rhonchi
Abd-soft, NT, ND
Ext-no edema
Musculoskeletal-no cyanosis, clubbing
Skin-warm and dry
Neuro-grossly non-focal
Psych-calm, cooperative
NSTEMI -differential diagnosis includes ACS versus type II demand ischemia given fast rates from atrial fibrillation and respiratory failure. Troponin elevation noted, will trend. Cardiology to see this morning. Currently denies chest pain.
Acute hypoxic respiratory failure - multifactorial etiology including underlying interstitial lung disease, pulmonary edema, community-acquired pneumonia. Currently on nonrebreather with ongoing hypoxia, transition to high flow oxygen. Discussed
with nursing.
Consult pulmonary.
Complicated pulmonary history noted. Recent CT chest dated 11/27/2023 showed left upper lobe mass measuring up to 3.2 cm in diameter. Predominantly peripheral and basilar interstitial and groundglass opacities. This is mostly consistent with
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 He is followed by pulmonary as an outpatient. Not on home oxygen but was recently discharged from our hospital 01/16 on 3 L of oxygen.
Acute heart failure with preserved EF exacerbation -not on diuretics at home. Weight is up over baseline. BNP elevated. Start IV Lasix. Did not get Lasix on admission for unclear reasons.
Sepsis due to community-acquired pneumonia -likely multilobar, chest x-ray 01/18 reviewed and shows diffuse infiltrates, somewhat improved in the left lower lobe compared to previous film 01/17. Consolidate antibiotics to ceftriaxone, doxycycline.
Check sputum.
Influenza, COVID-negative. Legionella, pneumococcus antigens negative. MRSA screen negative.
Atrial fibrillation with rapid ventricular response -fast rates likely driven by respiratory failure. Cardizem IV infusion resumed overnight, currently at 15 mg/h with persistent fast rates. Cardiology to see this morning. Antiarrhythmic therapy
with dofetilide initiated. Continue Eliquis for stroke prophylaxis.
Underwent recent ablation for supraventricular tachycardia on 01/15. Cardioversion on 12/26 for symptomatic atrial fibrillation.
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
History of bladder cancer -treated with left robotic nephroureterectomy September 2022. Known metastatic disease to the lung. On weekly Keytruda and Padcev. Bactrim 3 times a week for PCP prophylaxis, currently on hold.
AVR -2007.
BPH
hyperlipidemia -on simvastatin.
History of nephrolithiasis
Full code -reviewed goals of care this morning with patient. He states he would want to be intubated if respiratory failure worsens. Has never been intubated in the past.
Anticipated Discharge: > 48 hours
Subjective/Interval History
-
Date of Service: January 19, 2024
Patient seen and examined. Complaining of some shortness of breath. Denies chest pain currently.
Objective Data
-
Labs:
Laboratory Results
01/19/24
03:46
WBC 11.3 H
Hgb 12.2 L
Hct 36.0 L
Plt Count 153
Sodium 140
Potassium 4.7
Chloride 107
Carbon Dioxide 26
BUN 33 H
Creatinine 1.4 H
Glucose 108 H
Calcium 8.4
Vital Signs:
Vital Signs
Temp Pulse Resp BP Pulse Ox
98.2 F 173 18 99/77 93
01/19/24 03:50 01/19/24 07:30 01/19/24 07:30 01/19/24 07:30 01/19/24 07:30
I&O
01/18/24 01/19/24 01/20/24
06:59 06:59 05:59
Intake Total 325 / 325
Output Total 1325 / 1325
Balance -1000 / -1000
Review of Systems
-
History Source: Patient
All other systems: Reviewed and negative
--- NOTE | 2024-01-19 09:40 | W.PN.CARDCBS ---
Today's Communication / Plan
-
Digoxin x 1, possibly repeat
May need beta-nelia
May need Jorge-Synephrine to support blood pressure
Still want to start dofetilide
If continues to deteriorate, will need to consider cardioversion
Impression / Plan
-
PCP: Brant Kruse MD
Primary Order Clerk: Dr. Tomi Ring
Primary Plastic Top Assembler: Dr. Holly Dixon at [facility]
Impression:
Presentation with SOB, hypoxia
L PNA
2:1 aflutter
Paroxysmal afib/aflutter/atach
s/p PVI 10/08/2019
s/p PVI, posterior wall ablation, mitral annular flutter ablation 11/17/2020
s/p posterior L atrial wall ablation, right atrial tachycardia ablation 06/30/2021
Failed sotalol
Chronic amiodarone therapy from 01/2022 until 09/12/23, stopped due to amio lung toxicity
s/p [employer] loop recorder 11/15/23
s/p complex ablation of 3 left atrial tachycardias and 2 right atrial tachycardias and SVT 01/16/2024
A-fib recurrence 01/17/2024 status post successful cardioversion in ER
Chronic anticoagulation with Eliquis
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
Bladder cancer s/p L robotic nephroureterectomy 09/20/2022, multiple TURBTs with new bladder tumors s/p resection
New metastatic disease to lung, started PadCev 12/19/23 weekly with keytruda q 21 days first dose 12/19/23, also prednisone and bactrim m,w,f
h/o nephrolithiasis with stone removal and stent placement
Chronic renal insufficiency
h/o aortic valve replacement 2007
HLD
BPH
Recent fall with chin laceration 12/2023
ECHO 09/05/23: EF 60 to 65%, stage III diastolic dysfunction, mild concentric LVH, dilated RV, severely dilated atria, mild to moderate MR, well-seated #23 AVR with peak/mean gradients 10/5 mmHg, moderate TR, PAP 57 mmHg
Plan:
Unfortunately he is hemodynamically unstable and has acute HFpEF probably related to tachycardia, superimposed upon what could be pneumonia with interstitial lung disease on home O2, all following ablation. To our knowledge he has not been in sinus
rhythm since admission but rather an atrial tachycardia or slow atrial flutter. When he is 2-1 conduction his heart rate is under 100 and he is stable. When he conducts one-to-one he decompensates hemodynamically.
Major goal will be to get his heart rate back to 100. Will start with IV digoxin and continue IV diltiazem. He may need a beta-nelia, and may also need phenylephrine to support blood pressure. Hopefully digoxin will allow for better rate
control.
Still need to start dofetilide but will want him slightly more stable.
Antibiotics for possible pneumonia per Dr. Rodríguez.
Agree with IV Lasix.
Urgent cardioversion would be a measure of last resort.
Critical care time: 45 minutes
Progress Note - Order Clerk
Subjective
Date of Service: January 19, 2024:
Medically complex 88-year-old man admitted now with atrial fibrillation/flutter and rapid ventricular response following ablation of 3 left atrial tachycardias, 2 right atrial tachycardias on January 14. He has a history of amiodarone pulmonary
toxicity. He was discharged on the but returned for cardioversion and was discharged and then returned again with shortness of breath and cough. Since then he has had intermittent atrial flutter and possibly atrial fibs with rapid ventricular
response. Currently on Bactrim 3 days a week pneumonia prophylaxis in the setting of immunosuppression.
He was well until about 6 AM, is atrial tachycardia/flutter with 2-1 conduction changed to predominance of one-to-one conduction with tachycardia and now with marked dyspnea. He became hypoxemic, now on high flow. His intermittently going 1-1 with
atrial tachycardia
PMH: Paroxysmal atrial fibs/flutter/tachycardia, PVI 2020 with posterior left atrial wall ablation and right atrial tach ablation June 2021, failed sotalol and suspected pulmonary toxicity on amiodarone, interstitial lung disease on home O2,
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 CKD, aortic valve replacement 2007, hyperlipidemia
Allergies: None
Current medications: Mucinex, apixaban 2.5 twice daily, Proscar, atorvastatin, dofetilide 250 mcg every 12, IV diltiazem at 15, furosemide 40 IV daily, ceftriaxone, doxycycline
99/77, pulse 170s, respirate 18, afebrile, intake and output -1 L, now on high flow, sats are in the mid 90s, he states he is relatively comfortable but weak, lungs are surprisingly clear, tachycardic, Soft systolic murmur, abdomen benign
extremities without clubbing cyanosis or edema
Chest x-ray with bilateral infiltrates, probable pulmonary edema, possible left lung pneumonia
EKG this morning at 5 AM, atrial tach with 2-1 conduction, currently now going 1-1 frequently
White count 11.3, hemoglobin 12.2, platelets are 153, potassium 4.7, BUN and creatinine 33 and 1.4, troponin was 2.13, had been 0.025, proBNP was 2480, Had been 767
Objective
Labs:
01/19/24 03:46
01/19/24 03:46
Labs
Hgb 12.2 g/dL (13.0-18.0) L 01/19/24 03:46
Hct 36.0 % (39.0-52.0) L 01/19/24 03:46
Plt Count 153 10^3/uL (130-400) 01/19/24 03:46
Sodium 140 mmol/L (135-145) 01/19/24 03:46
Potassium 4.7 mmol/L (3.5-5.1) 01/19/24 03:46
BUN 33 mg/dl (9-20) H 01/19/24 03:46
Creatinine 1.4 mg/dL (0.7-1.3) H 01/19/24 03:46
Glucose 108 mg/dl (70-99) H 01/19/24 03:46
Troponins
01/19/24
08:00
Troponin I 2.130 H*
Vital Signs and I&O:
Vital Signs
Temp Pulse Resp BP Pulse Ox
36.8 C 173 18 99/77 93
01/19/24 03:50 01/19/24 07:30 01/19/24 07:30 01/19/24 07:30 01/19/24 07:30
Vital Signs
Temp Pulse Resp BP Pulse Ox
36.8 C 173 18 99/77 93
01/19/24 03:50 01/19/24 07:30 01/19/24 07:30 01/19/24 07:30 01/19/24 07:30
Intake & Output
01/17/24 01/18/24 01/19/24 01/20/24
07:59 07:59 07:59 06:59
Intake Total 325 / 325
Output Total 1325 / 1325
Balance -1000 / -1000
Physical Exam
Physical Exam
See above
--- NOTE | 2024-01-19 09:44 | RESPNOTE ---
pt put on High flow 55L 100% for increased work of beating Sa02 88% o NRM and MF 5L HR 140 RR 40, tolerating well Sa02 93% RR 30
[2024-01-19] MEDS: STERILE WATER FOR INJECTION 20 ML IV (09:46)
[2024-01-19] MEDS: ELIQUIS 2.5 MG PO ×2 (09:47→20:12)
[2024-01-19] MEDS: ROCEPHIN 2000 MG IV (09:47)
[2024-01-19] MEDS: MUCINEX 600 MG PO ×2 (09:47→20:12)
[2024-01-19] MEDS: VIBRAMYCIN 100 MG PO ×2 (09:47→20:12)
[2024-01-19] MEDS: LASIX 40 MG IV (09:48)
[2024-01-19] MEDS: LANOXIN 250 MCG IV ×2 (10:00→11:17)
--- NOTE | 2024-01-19 10:35 | PTCARENOTE ---
Received this am AF rates 150s-160s, IV Cardizem at 10mg/hr boluses given by previous shift. IV Cardizem titrated to 15mg/hr rates down 140s, BP 100s/60s. No c/o chest pain at this time. Troponin drawn and sent- critical result relayed to
providers. Attempted off NRB sao2 dropped to 84% with max midflow 15L. High flow initiated, 60L / 100% sao2 93-96%. Fine Crackles throughout- IV Lasix given. IV antibx as ordered. IV Digoxin then ordered and given. Currently rates are
120s-130s , sao2 96% 120/70 RR 26. He just voided 500ml- will monitor. Sons at the bedside encouraged them to keep him relaxed and quiet at this time.
--- NOTE | 2024-01-19 11:16 | CON.PUL ---
Consultation
Consultation Request
Date/Time Consultation Requested: 01/18
Date/Time Consultation Performed: 01/18
Reason for Consultation: Hypoxia
Medical History
-
History of Present Illness:
History obtained from the chart, reviewing hospital records, outpatient records and from patient and family at bedside. Patient with very complex medical history, primarily followed by [facility] pulmonary. 88-year-old male with history of atrial
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 Patient also has a history of suspected
amiodarone lung toxicity, had been on amiodarone from January 2022 to August 2023. Patient was started on immunotherapy with Keytruda first dose 12/18, patient states he received a second dose since. Patient was started on 50 mg of prednisone about
6 weeks ago by his clerk stenographer at [facility], which was weaned down to 10 mg recently. Patient notes increased shortness of breath and cough over the past 4 days. He is convinced that it happened after his ablation which was 01/15. He returned to the
emergency room with atrial fibrillation recurrence, cardioverted in the ER and then discharged. Since then he feels his breathing is worsening. He is complaining of productive cough of bronze mucus, no anali blood. He denies chest pain, pleurisy,
lightheadedness. He denies any obvious fevers, abdominal pain. He denies any PND, orthopnea. He was readmitted to the hospital 01/18/2024. He was started on antibiotics for presumed pneumonia. His oxygen requirement has worsened since his
hospital stay. We are asked to help from a pulmonary standpoint 01/19/2024
Of note, patient had a recent fall in the last week when he tripped over something and hit his chin. He received stitches in the ED
.
PMH: Newly diagnosed urothelial cancer with lung metastases status post bronchoscopy with lung biopsy at [facility] around October 2023 ([facility]), started on Keytruda/Padcev, paroxysmal atrial fibrillation/a flutter/atrial tachycardia status post
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
robotic nephroureterectomy September 2022, multiple TURBT's now with metastases to the lung. History of nephrolithiasis with stent placement stone removal, history of aortic valve replacement 2007, hyperlipidemia, BPH.
Past Medical History
Past Medical History: None (See above)
Past Surgical History: None (See above)
Social History
Tobacco: Former Smoker
Alcohol: Occasional
Drug: None
Personal:
Living: With Family
Employment: Retired
Family History
Family History: Reviewed & Not Pertinent
Allergies / Home Medications
Allergies
Allergy/AdvReac Type Severity Reaction Status Date / Time
No Known Allergies Allergy Verified 01/16/24 08:18
Home Medications
�Medication �Instructions �Recorded �Confirmed �Last Taken �Type
finasteride 5 mg tablet 5 mg PO HS prostate 05/25/10 01/18/24 01/17/24 History
simvastatin 10 mg tablet 10 mg PO HS High cholesterol 09/04/19 01/18/24 01/17/24 History
apixaban 5 mg tablet (Eliquis) 2.5 mg PO BID Blood Clot 09/17/23 01/18/24 01/18/24 History
Prevention/Tx
pembrolizumab 25 mg/mL intravenous 200 mg IV Q3W 12/24/23 01/18/24 12/26/23 13:00 History
solution (Keytruda)
sulfamethoxazole 800 1 tab PO MOWEFR pneumonia 12/24/23 01/18/24 01/18/24 History
mg-trimethoprim 160 mg tablet
(Bactrim DS)
diltiazem HCl 120 mg 120 mg PO BID #60 caps 12/27/23 01/18/24 01/18/24 Rx
capsule,extended release 24 hr
Review of Systems
-
All other systems: Negative unless noted
Vitals / Labs / Diagnostic Testing
Vital Signs
Temp Pulse Resp BP Pulse Ox
99.6 F 126 30 120/70 94
01/19/24 07:05 01/19/24 11:00 01/19/24 11:00 01/19/24 10:30 01/19/24 10:45
Lab Data
01/19/24 03:46
01/19/24 03:46
Microbiology
01/19/24 03:46 Nose Nasal Screen MRSA (PCR) - Final
MRSA not detected - performed by PCR methodology.
01/18/24 21:01 Urine Legionella Urinary Antigen - Final
Negative for Legionella pneumophila Serogroup 1 antigen.
A negative result does not rule out the possiblity of
Legionella infection due to other serogroups or species of
Legionella. Clinical correlation is recommended.
01/18/24 21:01 Urine Streptococcus pneumoniae Antigen (M - Final
Negative for Streptococcus pneumoniae antigen.
A negative result does not exclude infection with
Streptococcus pneumoniae. Clinical correlation is
recommended.
01/18/24 10:17 Nasal Swab Influenza Types A & B (MIO) - Final
Negative for Influenza A & B, NAAT
Negative results must be combined with clinical observations
and patient history.
Nucleic Acid Amplification test (NAAT)performed on the
[employer] platform.
Diagnostic Testing:
Physical Exam
-
HEENT: Normocephalic
Cardiovascular: S1/S2, Irregular Rhythm (Tachycardic), Murmur (n), Rub (n) and Peripheral Edema (n)
Respiratory: Wheeze (n), Rales (Scattered Rales), Rhonchi (n) and Accessory Resp Muscle Use (Mild use of accessory muscles with conversation)
GI: Soft, Non Distended and Non Tender
Neurology: Awake, Alert and No Motor Deficits (Moves all extremities)
Skin: Other (No clubbing, no cyanosis)
General: Respiratory Distress (Mild with conversation)
Assessment
-
88-year-old male with extremely complex cardiopulmonary history, recurrent atrial fibrillation/flutter with rapid ventricular response status post recent ablation and 01/15, requiring cardioversion 01/16 in the ED, recently diagnosed metastatic
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 We are asked to help from pulmonary standpoint
Acute hypoxic respiratory insufficiency
Requiring high flow oxygen
Admitted 01/17
Bilateral interstitial changes, left greater than right
Progressive interstitial disease per my review
Atrial fibrillation with rapid ventricular response
Metastatic urothelial cell cancer
Keytruda/Padvec immunotherapy started in the last month
Interstitial lung disease
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
Started on prednisone 50 mg, taper down to 10 (per [facility] 11/2023)
Renal insufficiency, creatinine 1.4
Conditions present prior to admission
History of atrial fibrillation/atrial flutter
Multiple PVI
Multiple cardioversions
Failed sotalol, off amiodarone since August 2023 (Amio tox)
History of biologic aortic valve replacement 2007
Hypertension/hyperlipidemia
Recently diagnosed metastatic urothelial cell cancer to the lung
Status post bronchoscopy at [facility] October 2024
Plan/recommendations
At this time, respiratory status is tenuous
Reviewed patient's history at length. Extremely complex history with care both at [facility] and at [facility]
Notable features are baseline chronic interstitial disease not requiring oxygen therapy as of 6 months ago, with recently initiated Keytruda and Padcev over the past 4 to 6 weeks
Incidence of pulmonary toxicity with Keytruda well-established
Unclear whether combination of these medications may lead to increased interstitial pneumonitis. There is documented worsening neuropathy and fatigue when these medications are taken in combination
Moving forward
Start IV steroids
Decadron 20 mg x 1 now, then continue daily
Difficult to differentiate between infectious process but would agree with ceftriaxone/doxycycline
Cardiology following closely. Rate control has been an issue
Failed sotalol, amiodarone stopped for toxicity reasons
Doubt there is a component of heart failure but remains on IV Lasix
Cardiology following closely
Okay for beta-nelia therapy if needed
Recent cardiac catheterization including right heart catheterization August 2023 reviewed. At that time wedge pressure was normal, RV systolic pressure 43
Patient is high risk for respiratory failure, may require intubation and mechanical ventilation
It is noted that an outpatient setting in September 2023, patient had desaturation burke 87% with ambulation. Although he has oxygen therapy at home he did not feel he needed it until recently. We do not have any data on his lung function
Consider upgrading to ICU
I reviewed that if he does have a progressive scarring process, and if requiring intubation with mechanical ventilation, he may be difficult to liberate from the ventilator
This was reviewed at length with him, family at bedside
Complex decision making process
Reviewed with nursing, primary service, cardiology
We will follow
TCCT 51 min
[2024-01-19] MEDS: DECADRON 20 MG IV (11:25)
[2024-01-19] MEDS: NEO-SYNEPHRINE 250 IV (12:32)
[2024-01-19] MEDS: LOPRESSOR 5 MG IV (12:32)
--- NOTE | 2024-01-19 13:19 | PTCARENOTE ---
2nd dose IV Digoxin given, IV Decadron 20mg and then IV Lopressor- IV Jorge set up not initiated as BP 100/70 map 73-AF rates now in the 90s. Maxed on high flow 60l/100% sao2 92%. Family at bedside, Report to Niall, transferred to ICU.
[2024-01-19 13:52] LABS: INR 1.27; PT 15.8 Sec (11.4-14.6)
[2024-01-19] MEDS: TIKOSYN 250 MCG PO ×2 (14:08→22:59)
--- NOTE | 2024-01-19 14:29 | PTCARENOTE ---
Pt received as an level of care upgrade from IMU to ICU. AAOx3. Forgetful at times. Denying pain. Atrial Fibrillation on public interviewer. Cardizem gtt infusing @ 15 mg/hr. No edema. Weak pedal pulses. Tikosyn dose reviewed with pharmacy and
Edgardo, ordering Tripoler. Tikosyn 250mcg X1 @ 13:58 with next dose @ 23:00 tonight and the following dose tomorrow @ 0800. EKG ordered 2 hours after administration @ 16:00 to monitor QTc. SaO2 92-96% on High Flow NC 55L/100%. PT with occasional
moist cough. Specimen cup given and education provided on sputum sample. Fine crackles auscultated 1/2 up right side, diminished throughout. (+) bowel sounds. Voiding into urinal. Right groin site C/D/I. Right Sub Q port flushed. (R) FA #20 with
Cardizem gtt infusing.
--- NOTE | 2024-01-19 14:47 | PTCARENOTE ---
Addendum entered by Jp Menjivar RN 01/19/24 16:47:
Follow up EKG obtained. Resulted wide QRS tachycardia, left axis deviation, left bundle branch block. QT 365 and QTc 505. After completion of EKG, pt immediately appeared in Sinus Rhythm on residential monitor. Additional EKG obtained for rhythm
change. QT 414 and QTc 462. Pt continues in sinus rhythm. HR 70s. Cardizem gtt titrated to 10 mg/hr.
Original Note:
Pre-Tikosyn administration EKG with QT 358 and QTc 475. A Fib with RVR. Administration of Tikosyn confirmed by pharmacy and Dr. Reynoso.
1st dose of Tikosyn 250 mcg PO administered @ 14:08. Follow up EKG ordered for 16:00.
[2024-01-19] MEDS: DECADRON 6 MG IV (17:53)
[2024-01-19] MEDS: LOPRESSOR 12.5 MG PO (17:53)
[2024-01-19] MEDS: CARDIZEM CD 120 MG PO (17:53)
--- NOTE | 2024-01-19 18:10 | PTCARENOTE ---
Pt remain in Sinus Rhythm on brick tosser. Cardizem gtt weaned to 5 mg/hr. HR 70s. Jorge-synephrine never initiated; SBP > 90. New order from Dr. Reynoso, Cardiology, to stop Cardizem gtt and administer Cardizem 120mg PO. Next Tikosyn dose timed
for 23:00. SaO2 90 - 98% on High Flow NC 55L/100%. Pt without complaint.
--- NOTE | 2024-01-19 20:27 | PTCARENOTE ---
Assumed care of pt. approx 1900.
Pt. receiving loading dose tikosyn, per protocol EKGs followed.
Currently in NSR Qtc monitoring on reading 452. Normotensive, normothermic.
Lungs diminished, tachypneic, dyspneic, maxed on HHF.
Offers no complaints of pain, no gtt, all questions and care explained and answered.
[2024-01-19] MEDS: PROSCAR 5 MG PO (21:47)
[2024-01-19] MEDS: LIPITOR 10 MG PO (21:47)
[2024-01-19 22:15] LABS: Glucose - Point of Care 178 mg/dl (70-99)
--- NOTE | 2024-01-19 23:56 | PTCARENOTE ---
No change in pt. assessment.
[2024-01-20] VITALS (26 sets, daily range): BP systolic 94–136; BP diastolic 62–92; O2SAT 91; BMI 26.5
[2024-01-20] MEDS: DECADRON 6 MG IV ×5 (00:44→23:41)
[2024-01-20] MEDS: LOPRESSOR 12.5 MG PO ×2 (00:44→06:06)
--- NOTE | 2024-01-20 00:59 | PTCARENOTE ---
EKG completed per Tikosyn dosing protocol dose 2.
Qt: 466
QTc: 472
--- NOTE | 2024-01-20 04:07 | PTCARENOTE ---
Pt. remains in NSR, some PAC ectopy noted. QtC remains less than 500. Normotensive.
HHF starting to be titrated down slowly, pt. tolerating weaning of o2, sp02 92-98%. Still dyspneic, but tachypnea resolving.
[2024-01-20 04:16] LABS: Hematocrit 36.2 % (39.0-52.0); Hemoglobin 12.5 g/dL (13.0-18.0); Mean Corp Hgb Conc. 34.5 g/dL (33.0-37.0); Mean Corpuscular Hgb 31.8 pg (27.0-31.0); Mean Corpuscular Volume 92.1 fL (80.0-94.0); Mean Platelet Volume 9.5 fL (7.4-10.4); Platelet Count 164 10^3/uL (130-400); Red Blood Cell Count 3.93 10^6/uL (4.70-6.10); Red Cell Dist. Width 14.6 % (11.5-14.5); White Blood Cell Count 10.1 10^3/uL (4.8-10.8)
[2024-01-20 05:11] LABS: Blood Urea Nitrogen 40 mg/dl (9-20); Calcium 8.7 mg/dl (8.4-10.2); Carbon Dioxide 27 mmol/L (22-30); Chloride 103 mmol/L (98-107); Estimated Creatinine Clearance 45 ml/min; Glucose 162 mg/dl (70-99); Potassium 4.4 mmol/L (3.5-5.1); Sodium 138 mmol/L (135-145)
--- NOTE | 2024-01-20 06:10 | PTCARENOTE ---
HHF weaned down 50L/80%. SP02 96%.
--- NOTE | 2024-01-20 06:12 | PTCARENOTE ---
Addendum entered by Mil Reynoso RN 01/20/24 06:38:
Pt. converted back into sinus prior to med administration.
Dr. Reynoso from cardiology notified new orders placed via telephone as follows:
-Hold 5mg IVP lopressor
-Hold PO cardizem
-Increase PO lopressor to 25 mg Q6, give one dose now.
Addendum entered by Mil Reynoso RN 01/20/24 06:27:
Dr. Reynoso called unit and placed telephone orders as follows:
-5mg IVP lopressor now
-increase PO lopressor to 25 mg Q6
-Give 0800 ER cardizem now.
Verbal order sheet tubed to pharmacy, copy placed on chart.
Addendum entered by Mil Reynoso RN 01/20/24 06:15:
Dr. Reynoso vp [employer] cardiology notified via TT, awaiting orders.
Original Note:
Pt. converted back into Afib at this time. rate 110-130s.
--- NOTE | 2024-01-20 06:48 | W.PN.INTV ---
Today's Communication / Plan
Recommendations
Continue IV steroids
Wean oxygen
Chest x-ray in a.m.
Rate control per cardiology
Would consider oncology evaluation 01/20. Patient well-known to Dr. Rubalcava
Assessment
-
88-year-old male with extremely complex cardiopulmonary history, recurrent atrial fibrillation/flutter with rapid ventricular response status post recent ablation and 01/15, requiring cardioversion 01/16 in the ED, recently diagnosed metastatic
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 We are asked to help from pulmonary standpoint
Acute hypoxic respiratory insufficiency
Requiring high flow oxygen
Admitted 01/17
Transferred to ICU 01/18
Bilateral interstitial changes, left greater than right
Progressive interstitial disease per my review
Atrial fibrillation with rapid ventricular response
Now on Tikosyn
Metastatic urothelial cell cancer
Keytruda/Padvec immunotherapy started in the last month
s/p bx at [facility]
Interstitial lung disease
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
Started on prednisone 50 mg, taper down to 10 (per [facility] 11/2023)
Renal insufficiency, creatinine 1.4
Conditions present prior to admission
History of atrial fibrillation/atrial flutter
Multiple PVI
Multiple cardioversions
Failed sotalol, off amiodarone since August 2023 (Amio tox)
History of biologic aortic valve replacement 2007
Hypertension/hyperlipidemia
Recently diagnosed metastatic urothelial cell cancer to the lung
Status post bronchoscopy at [facility] October 2024
Plan/recommendations
At this time, respiratory status is tenuous, but appears to be somewhat improved
Heart rate improved now on Tikosyn
Cardiology following closely
Reviewed patient's history at length. Extremely complex history with care both at [facility] and at [facility]
Notable features are baseline chronic interstitial disease not requiring oxygen therapy as of 6 months ago, with recently initiated Keytruda and Padcev over the past 4 to 6 weeks
Incidence of pulmonary toxicity with Keytruda well-established
Unclear whether combination of these medications may lead to increased interstitial pneumonitis. There is documented worsening neuropathy and fatigue when these medications are taken in combination
Moving forward
Continue IV steroids, started 01/18
No plans to wean at this time
Difficult to differentiate between infectious process but would agree with ceftriaxone/doxycycline
Follow blood sugars
Chest x-ray 01/20
If continues to improve, he will require slow taper of steroids as outpatient over the next 3 to 6 weeks
Will also require close pulmonary follow-up
Cardiology following closely. Rate control has been an issue
Failed sotalol, amiodarone stopped for toxicity reasons
Doubt there is a component of heart failure but remains on IV Lasix
Negative fluid status continues
Cardiology following closely
Okay for beta-nelia therapy if needed
Recent cardiac catheterization including right heart catheterization August 2023 reviewed. At that time wedge pressure was normal, RV systolic pressure 43
Seems to be responding to Tikosyn therapy
Patient is high risk for respiratory failure, may require intubation and mechanical ventilation
It is noted that an outpatient setting in September 2023, patient had desaturation burke 87% with ambulation. Although he has oxygen therapy at home he did not feel he needed it until recently. We do not have any data on his lung function
Hopefully intubation can be avoided
I reviewed that if he does have a progressive scarring process, and if requiring intubation with mechanical ventilation, he may be difficult to liberate from the ventilator
This was reviewed at length with him, family at bedside
Reviewed with nursing, primary service
TCCT 31 min
Subjective Dataa
Subjective Data
Date of Service:
Date of Service: January 20, 2024
Subjective:
Patient remains critically ill, on Tikosyn. Fortunately has not required pressors. Remains on high flow oxygen, respiratory status remains tenuous but patient feels improved. Denies chest pain, nausea, abdominal pain
Objective Data
Data Reviewed
Vital Signs / I&O / Oxygen:
Vital Signs
Temp Pulse Resp BP Pulse Ox
97 F 80 16 112/89 96
01/20/24 04:18 01/20/24 06:06 01/20/24 05:00 01/20/24 06:06 01/20/24 06:10
Intake and Output
01/18/24 01/19/24 01/20/24
06:59 06:59 05:59
Intake Total 325 / 325 660 / 660
Output Total 1325 / 1325 2596 / 2596
Balance -1000 / -1000 -1936 / -1936
SaO2 96
Nasal Cannula flow liters per 55
minute
Physical Exam
General: Comfortable
HEENT: Normocephalic and Anicteric
Cardiovascular: S1-S2, Regular Rhythm, Murmur (n) and Rub (n)
Respiratory: Wheeze (n), Crackles (Few scattered), Rhonchi (n) and Non-Labored Respirations
GI: Soft, Non Distended and Non Tender
Neurology: Awake, Alert and No Motor Deficits (Able to sit up, moves all extremities)
Skin: Good Color (n), Cyanosis (n) and Jaundice (n)
Labs/Micro/Reports
Lab Data
01/20/24 03:59
01/20/24 03:59
Laboratory Results
01/19/24
13:35
PT 15.8 H
INR 1.27
Microbiology
01/19/24 03:46 Nose Nasal Screen MRSA (PCR) - Final
MRSA not detected - performed by PCR methodology.
01/18/24 21:01 Urine Legionella Urinary Antigen - Final
Negative for Legionella pneumophila Serogroup 1 antigen.
A negative result does not rule out the possiblity of
Legionella infection due to other serogroups or species of
Legionella. Clinical correlation is recommended.
01/18/24 21:01 Urine Streptococcus pneumoniae Antigen (M - Final
Negative for Streptococcus pneumoniae antigen.
A negative result does not exclude infection with
Streptococcus pneumoniae. Clinical correlation is
recommended.
01/18/24 10:17 Nasal Swab Influenza Types A & B (MIO) - Final
Negative for Influenza A & B, NAAT
Negative results must be combined with clinical observations
and patient history.
Nucleic Acid Amplification test (NAAT)performed on the
[employer] platform.
[2024-01-20] MEDS: LOPRESSOR 25 MG PO ×2 (07:26→15:50)
[2024-01-20] MEDS: ELIQUIS 2.5 MG PO ×2 (07:28→20:02)
[2024-01-20] MEDS: LASIX 40 MG IV (07:28)
[2024-01-20] MEDS: MUCINEX 600 MG PO ×2 (07:29→20:02)
[2024-01-20] MEDS: TIKOSYN 250 MCG PO ×2 (07:30→20:02)
[2024-01-20] MEDS: VIBRAMYCIN 100 MG PO ×2 (07:31→20:02)
--- NOTE | 2024-01-20 08:00 | PTCARENOTE ---
Complete assessment done and documented in worklist. Pt awake, alert, oriented x3, and pleasant. HR now back to SR with PACs. Pt was trialed at 0745 to decreasesd O2, on high flow 40 L, 80%. Pt's O2 sat decreased to 87%. Pt put back to high flow
50L, 80% at 0800, O2 sata then back to 92%. Pt with ACUÑA or continued speaking. Pt encouraged to take slow deep breaths when he feels the dyspnea, and to use his I/S. Pt listening and following direction. Pt ate 90% of his breakfast without
difficulty, +BSs. Pt diuresing 1100 ml of yellow urine in the last 2 hrs post lasix. Pt seen this am by Dr Dang, Dr Trejo, Dr Rubalcava, and Dr Reynoso.
--- NOTE | 2024-01-20 08:10 | W.PN.HOSP.TC ---
Addendum entered and electronically signed by Prudencio Rodríguez DO 01/20/24 08:46:
Not NSTEMI.
Likely Acute nonischemic myocardial injury, discussed with cardiology.
Original Note:
Today's Communication/Plan
-
Continue diuretics
Wean high flow oxygen as able
Assessment / Plan
Assessment / Plan
Gen-AAOx3, NAD
HEENT-NC, AT, anicteric, clear oral mm
Neck-supple
CV-reg, no M, +S1/S2
Lungs-mild bilateral rhonchi
Abd-soft, NT, ND
Ext-no edema
Musculoskeletal-no cyanosis, clubbing
Skin-warm and dry
Neuro-grossly non-focal
Psych-calm, cooperative
NSTEMI -differential diagnosis includes ACS versus type II demand ischemia given fast rates from atrial fibrillation and respiratory failure. Troponin elevation noted, will trend. Cardiology to see this morning. Currently denies chest pain.
Acute hypoxic respiratory failure - multifactorial etiology including immunotherapy related pneumonitis, interstitial lung disease, pulmonary edema due to CHF, community-acquired pneumonia. Stable on high flow oxygen, wean down as able. Currently
50 L, 80% FiO2.
Complicated pulmonary history noted. Recent CT chest dated 11/27/2023 showed left upper lobe mass measuring up to 3.2 cm in diameter. Predominantly peripheral and basilar interstitial and ground glass opacities. This is mostly consistent with
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 He is followed by pulmonary as an outpatient. Not on home oxygen but was recently discharged from our hospital 01/16 on 3 L of oxygen.
Acute heart failure with preserved EF exacerbation -not on diuretics at home. Weight now trending down on IV Lasix. BNP elevated. Last echocardiogram was 09/05/2023, LVEF 60 to 65%, stage III diastolic dysfunction, severely dilated atria, mild to
moderate MR, moderate TR.
Sepsis due to community-acquired pneumonia -likely multilobar, chest x-ray 01/18 reviewed and shows diffuse infiltrates, somewhat improved in the left lower lobe compared to previous film 01/17. Continue ceftriaxone, doxycycline. Check sputum.
Leukocytosis resolved. Afebrile.
Influenza, COVID-negative. Legionella, pneumococcus antigens negative. MRSA screen negative.
Atrial fibrillation with rapid ventricular response -converted to sinus rhythm overnight. Rates controlled currently. Continue Tikosyn per cardiology. Off Cardizem drip. Oral Cardizem dose to be held today given controlled rate. Metoprolol
started and dose increased by cardiology. Continue Eliquis for stroke prophylaxis.
Underwent recent ablation for supraventricular tachycardia on 01/15. Cardioversion on 12/26 for symptomatic atrial fibrillation.
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 Admission creatinine 1.6 on January 17, 1.7 on January 16. Etiology of JUAN possibly related to cardiorenal syndrome from CHF.
History of bladder cancer -treated with left robotic nephroureterectomy September 2022. Known metastatic disease to the lung. On weekly Keytruda and Padcev. Bactrim 3 times a week for PCP prophylaxis, currently on hold.
AVR -2007.
BPH
hyperlipidemia -on simvastatin.
History of nephrolithiasis
Full code
Updated son at the bedside.
Anticipated Discharge: > 48 hours
Subjective/Interval History
-
Date of Service: January 20, 2024
Patient seen and examined. Overall feeling better and less short of breath. Eating breakfast.
Objective Data
-
Labs:
Laboratory Results
01/20/24
03:59
WBC 10.1
Hgb 12.5 L
Hct 36.2 L
Plt Count 164
Sodium 138
Potassium 4.4
Chloride 103
Carbon Dioxide 27
BUN 40 H
Creatinine 1.3
Glucose 162 H
Calcium 8.7
Vital Signs:
Vital Signs
Temp Pulse Resp BP Pulse Ox
97 F 72 18 134/92 93
01/20/24 04:18 01/20/24 08:00 01/20/24 08:00 01/20/24 08:00 01/20/24 08:08
I&O
01/19/24 01/20/24 01/21/24
07:59 06:59 06:59
Intake Total 150 / 150
Output Total
Balance 150 / 150
Review of Systems
-
History Source: Patient
All other systems: Reviewed and negative
--- NOTE | 2024-01-20 09:04 | W.PN.CARDCBS ---
Addendum entered and electronically signed by Juan Antonio Reynoso MD 01/20/24 10:28:
If creatinine remains improved will need to increase Eliquis
Original Note:
Today's Communication / Plan
-
Continue dofetilide
Continue IV Lasix
Continue metoprolol
Stop diltiazem
Impression / Plan
-
PCP: Brant Kruse MD
Primary Quarryman: Dr. Tomi Ring
Primary Foreign Agent: Dr. Holly Dixon at [facility]
Impression:
Presentation with SOB, hypoxia
L PNA
2:1 aflutter
Paroxysmal afib/aflutter/atach
s/p PVI 10/08/2019
s/p PVI, posterior wall ablation, mitral annular flutter ablation 11/17/2020
s/p posterior L atrial wall ablation, right atrial tachycardia ablation 06/30/2021
Failed sotalol
Chronic amiodarone therapy from 01/2022 until 09/12/23, stopped due to amio lung toxicity
s/p [employer] loop recorder 11/15/23
s/p complex ablation of 3 left atrial tachycardias and 2 right atrial tachycardias and SVT 01/16/2024
A-fib recurrence 01/17/2024 status post successful cardioversion in ER
Chronic anticoagulation with Eliquis
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
Bladder cancer s/p L robotic nephroureterectomy 09/20/2022, multiple TURBTs with new bladder tumors s/p resection
New metastatic disease to lung, started PadCev 12/19/23 weekly with keytruda q 21 days first dose 12/19/23, also prednisone and bactrim m,w,f
h/o nephrolithiasis with stone removal and stent placement
Chronic renal insufficiency
h/o aortic valve replacement 2007
HLD
BPH
Recent fall with chin laceration 12/2023
ECHO 09/05/23: EF 60 to 65%, stage III diastolic dysfunction, mild concentric LVH, dilated RV, severely dilated atria, mild to moderate MR, well-seated #23 AVR with peak/mean gradients 10/5 mmHg, moderate TR, PAP 57 mmHg
Plan:
He looks considerably better in sinus rhythm after a single dose of dofetilide. He had a brief recurrence of atrial tachycardia this morning but is now in sinus rhythm.
We have uptitrated metoprolol which he was not taking on admission in which she seems to be tolerating. This seems to be more effective than diltiazem and we will stop diltiazem.
QT interval is acceptable after first 2 doses of dofetilide.
Continue IV Lasix.
From my standpoint he could leave ICU and be transferred to IVU for completion of dofetilide loading. However, still on high flow oxygen so defer to hospitalist and intake specialist as to whether or not he should remain in ICU.
I would not pursue his elevated troponin, which is probably a non-ACS troponin elevation related to tachycardia and increased oxygen demand.
At this point we will not continue digoxin.
Progress Note - Quarryman
Subjective
Date of Service: January 20, 2024:
He feels much better in sinus rhythm, still requiring high flow oxygen, on steroids, getting IV Lasix, brief run of atrial tachycardia 1: 1 this morning for 10 minutes now sinus rhythm with PACs
PMH/PSH/SH/FH: Reviewed.
Allergies/outpatient meds: Reviewed
Current meds: Guaifenesin, apixaban 2.5 twice daily, finasteride, atorvastatin 10 mg at bedtime, furosemide 40 mg IV daily, ceftriaxone, doxycycline, dexamethasone, Jorge-Synephrine, dofetilide, diltiazem ER 120 mg, currently on hold, metoprolol 25
every 6,
134/92, pulse 72, respirate 18, afebrile, weight is 88.5 kg down 0.7 kg from yesterday, down 6.5 kg from January 16 and 3.3 kg from January 15, intake and output -1.8 L, head neck exam unremarkable lungs relatively clear, soft systolic murmur, JVD
okay, abdomen benign, not much edema
WBC 10.1, hemoglobin 12.5, potassium 4.4, BUN and creatinine 40 and 1.3, creatinine had been 1.5 on admission, troponin is 1.0, peak was 2.2, proBNP was 2480 on the first
Telemetry: A-fib earlier, currently sinus rhythm
ECG normal sinus rhythm, first-degree AV block, left bundle branch block, QTc 472
Objective
Labs:
01/20/24 03:59
01/20/24 03:59
Labs
Hgb 12.5 g/dL (13.0-18.0) L 01/20/24 03:59
Hct 36.2 % (39.0-52.0) L 01/20/24 03:59
Plt Count 164 10^3/uL (130-400) 01/20/24 03:59
PT 15.8 Sec (11.4-14.6) H 01/19/24 13:35
INR 1.27 01/19/24 13:35
Sodium 138 mmol/L (135-145) 01/20/24 03:59
Potassium 4.4 mmol/L (3.5-5.1) 01/20/24 03:59
BUN 40 mg/dl (9-20) H 01/20/24 03:59
Creatinine 1.3 mg/dL (0.7-1.3) 01/20/24 03:59
Glucose 162 mg/dl (70-99) H 01/20/24 03:59
Troponins
01/19/24 01/19/24 01/19/24
08:00 13:35 20:11
Troponin I 2.130 H* 2.220 H* 1.330 H* D
01/20/24
00:43
Troponin I 1.010 H*
Vital Signs and I&O:
Vital Signs
Temp Pulse Resp BP Pulse Ox
36.6 C 72 18 134/92 93
01/20/24 08:16 01/20/24 08:00 01/20/24 08:00 01/20/24 08:00 01/20/24 08:08
Vital Signs
Temp Pulse Resp BP Pulse Ox
36.6 C 72 18 134/92 93
01/20/24 08:16 01/20/24 08:00 01/20/24 08:00 01/20/24 08:00 01/20/24 08:08
Intake & Output
01/18/24 01/19/24 01/20/24 01/21/24
08:59 08:59 07:59 07:59
Intake Total 150 / 150
Output Total
Balance 150 / 150
Physical Exam
Physical Exam
See above
--- NOTE | 2024-01-20 10:19 | PTCARENOTE ---
EKG was done 2 hrs post Tikosyn dose, showing SR with PACs. Pt's in to see pt and was updated, and was also able to speak with Dr Dang.
[2024-01-20] MEDS: ROCEPHIN 2000 MG IV (10:23)
[2024-01-20] MEDS: STERILE WATER FOR INJECTION 20 ML IV (10:24)
--- NOTE | 2024-01-20 10:31 | CON.ONC ---
Impression
Impression
Stage IV urothelial carcinoma
Interstitial lung disease likely exacerbated by steroid reduction and systemic therapy
Atrial fibrillation
Aortic valve replacement
Chronic renal insufficiency
Hyperlipidemia
BPH
Plan
Plan
Continue ICU level support
High-dose steroids
Broad-spectrum antibiotic coverage for secondary pneumonia
Atrial fibrillation treatment as per cardiology
Patient no longer candidate for current approach to urothelial carcinoma
Patient History
History of Present Illness
Omari Trivedi is a pleasant 88-year-old gentleman that appeared younger than his stated age recently diagnosed with metastatic transitional cell carcinoma to the lung by virtue of bronchoscopy biopsy. He initiated systemic therapy with
Keytruda/Padcev and now has been admitted to the hospital with respiratory insufficiency complicated by atrial fibrillation. He had underlying interstitial lung disease secondary to amiodarone which required chronic steroid therapy. Prednisone had
been reduced in anticipation of IO/chemotherapy to 10 mg daily. He is now in the ICU on high flow oxygen with progressive interstitial changes on imaging and superimposed infiltrate. Chest x-ray appears to be clearing on high-dose steroids.
Past-Medical/Surgical History
Past Medical History
Low-volume stage IV urothelial cancer with lung metastases status post bronch[facility] with [facility] [place] [facility] started on Keytruda/Padcev, paroxysmal atrial fibrillation/a flutter/atrial tachycardia status post multiple
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
nephroureterectomy September 2022, multiple TURBT's now with metastases to the lung. History of nephrolithiasis with stent placement stone removal, history of aortic valve replacement 2007, hyperlipidemia, BPH.
Social History
Tobacco: Former Smoker
Alcohol: Occasional
Drug: None
Personal:
Living: With Family
Employment: Retired
Family History
Family History: Reviewed & Not Pertinent
Patient Medication
�Medication �Instructions �Recorded �Confirmed �Last Taken �Type
finasteride 5 mg tablet 5 mg PO HS prostate 05/25/10 01/18/24 01/17/24 History
simvastatin 10 mg tablet 10 mg PO HS High cholesterol 09/04/19 01/18/24 01/17/24 History
apixaban 5 mg tablet (Eliquis) 2.5 mg PO BID Blood Clot 09/17/23 01/18/24 01/18/24 History
Prevention/Tx
pembrolizumab 25 mg/mL intravenous 200 mg IV Q3W 12/24/23 01/18/24 12/26/23 13:00 History
solution (Keytruda)
sulfamethoxazole 800 1 tab PO MOWEFR pneumonia 12/24/23 01/18/24 01/18/24 History
mg-trimethoprim 160 mg tablet
(Bactrim DS)
diltiazem HCl 120 mg 120 mg PO BID #60 caps 12/27/23 01/18/24 01/18/24 Rx
capsule,extended release 24 hr
Active Medications
Generic Name Dose Route Start Last Admin
Trade Name Freq PRN Reason Stop Dose Admin
Acetaminophen 650 mg 01/18/24 14:37
Acetaminophen 325 Mg Tablet PO 02/15/24 14:36
Q4HPRN PRN
if temp > 101 F
Albuterol/Ipratropium 3 ml 01/18/24 14:37
Ipratropium 0.5/Albuterol 3 Mg (3 Ml Ampul) INH
R Q4HPRN PRN
shortness of breath/wheezing
Protocol
Apixaban 2.5 mg 01/18/24 20:00 01/20/24 07:28
Apixaban (Eliquis) 2.5 Mg Tablet PO 02/15/24 19:59 2.5 mg
BID KRISTOFER Administration
Atorvastatin Calcium 10 mg 01/18/24 22:00 01/19/24 21:47
Atorvastatin (Lipitor) 10 Mg Tablet PO 02/15/24 21:59 10 mg
HS KRISTOFER Administration
Ceftriaxone Sodium 2,000 mg 01/19/24 10:00 01/20/24 10:23
Ceftriaxone 2,000 Mg/20 Ml Vial IV 2,000 mg
Q24H KRISTOFER Administration
Dexamethasone Sodium Phosphate 6 mg 01/19/24 18:00 01/20/24 06:07
Dexamethasone 4 Mg/Ml 1 Ml Vial IV 02/16/24 17:59 6 mg
Q6H KRISTOFER Administration
Dofetilide 250 mcg 01/20/24 08:00 01/20/24 07:30
Dofetilide 250 Mcg Capsule PO 02/17/24 07:59 250 mcg
Q12 KRISTOFER Administration
Doxycycline Hyclate 100 mg 01/19/24 10:00 01/20/24 07:31
Doxycycline 100 Mg Capsule PO 100 mg
Q12 KRISTOFER Administration
Finasteride 5 mg 01/18/24 22:00 01/19/24 21:47
Finasteride 5 Mg Tablet PO 02/15/24 21:59 5 mg
HS KRISTOFER Administration
Furosemide 40 mg 01/19/24 10:00 01/20/24 07:28
Furosemide 40 Mg (10 Mg/Ml) 4 Ml Vial IV 02/16/24 09:59 40 mg
DAILY KRISTOFER Administration
Guaifenesin 600 mg 01/18/24 20:00 01/20/24 07:29
Guaifenesin 600 Mg Extended Release Tablet PO 02/15/24 19:59 600 mg
Q12 KRISTOFER Administration
Heparin Sodium (Porcine) 500 unit 01/19/24 20:00 01/20/24 00:45
Heparin Pf (100 Units/Ml) 5 Ml Syr Sc Port IV 02/16/24 19:59 500 unit
PER PROTOCOL KRISTOFER Administration
Phenylephrine HCl 50 mg in 250 mls @ 0 mls/hr 01/19/24 12:15 01/19/24 12:32
Jorge-Synephrine IV 250 mls
PER PROTOCOL KRISTOFER Administration
Protocol
Per Protocol
Metoprolol Succinate 25 mg 01/20/24 20:00
Metoprolol 25 Mg Extended Release Tablet PO 02/17/24 19:59
BID KRISTOFER
Metoprolol Tartrate 25 mg 01/20/24 14:53
Metoprolol 25 Mg Regular Release Tablet PO 01/20/24 16:00
Q6 KRISTOFER
Sodium Chloride 0 flush 01/18/24 15:00
Sodium Chloride 0.9% (Flush) Syringe IV 02/15/24 14:59
PER PROTOCOL KRISTOFER
Sterile Water 20 ml 01/19/24 10:00 01/20/24 10:24
Sterile Water For Injection 20 Ml Vial IV 02/16/24 09:59 20 ml
Q24H KRISTOFER Administration
Review of Systems
-
10 point review of systems fails elicit additional complaints other than those reviewed in HPI
Physical Exam
-
Physical Exam
General: No Apparent Distress, Comfortable and Other (on highflow O2)
HEENT: Normocephalic, Anicteric and Moist Mucous Membranes
Cardiac: S1/S2 and Irregular Rhythm
GI: Soft, Non Tender, Non Distended and Normal Bowel Sounds
Musculoskeletal: No Clubbing, No Cyanosis and No Edema
Skin: Warm, Dry
Neuro: AO x 3
Labs
Lab Results
WBC 10.1 10^3/uL (4.8-10.8) 01/20/24 03:59
RBC 3.93 10^6/uL (4.70-6.10) L 01/20/24 03:59
Hgb 12.5 g/dL (13.0-18.0) L 01/20/24 03:59
Hct 36.2 % (39.0-52.0) L 01/20/24 03:59
MCV 92.1 fL (80.0-94.0) 01/20/24 03:59
MCH 31.8 pg (27.0-31.0) H 01/20/24 03:59
MCHC 34.5 g/dL (33.0-37.0) 01/20/24 03:59
RDW 14.6 % (11.5-14.5) H 01/20/24 03:59
Plt Count 164 10^3/uL (130-400) 01/20/24 03:59
MPV 9.5 fL (7.4-10.4) 01/20/24 03:59
Abs Immat Gran (auto) 0.1 10^3/uL (0-0.05) H 01/18/24 10:17
Absolute Neuts (auto) 9.2 10^3/uL (1.4-6.5) H 01/18/24 10:17
Absolute Lymphs (auto) 1.5 10^3/uL (1.2-3.4) 01/18/24 10:17
Absolute Monos (auto) 0.7 10^3/uL (0.1-0.6) H 01/18/24 10:17
Absolute Eos (auto) 0.0 10^3/uL (0-0.7) 01/18/24 10:17
Absolute Basos (auto) 0.0 10^3/uL (0-0.2) 01/18/24 10:17
Immature Gran % 0.5 % (0-0.5) 01/18/24 10:17
Neutrophils % 80.0 % (42.2-75.2) H 01/18/24 10:17
Lymphocytes % 12.9 % (20.5-51.1) L 01/18/24 10:17
Monocytes % 6.0 % (1.7-9.3) 01/18/24 10:17
Eosinophils % 0.3 % (0-6) 01/18/24 10:17
Basophils % 0.3 % (0-2) 01/18/24 10:17
Creatinine 1.3 mg/dL (0.7-1.3) 01/20/24 03:59
Vital Signs
Vital Signs
Temp Pulse Resp BP Pulse Ox
97.8 F 71 27 103/78 92
01/20/24 08:16 01/20/24 10:00 01/20/24 10:00 01/20/24 10:00 01/20/24 10:00
--- NOTE | 2024-01-20 10:45 | CM ---
CM following re: discharge planning.
Reviewed pt's chart, met with pt. pt's spouse and two pt's friends at bedside.
Pt is an 88 year old male, admitted with primary dx of NSTEMI.
Pt reports he lives with spouse in a 3SH, 2 steps to enter with elevator to 2nd and 3d floor. Pt described himself as independent in all areas DRY CURER, has home Oxygen and per pt lately he has been using 3L NC.
CM consulted to assist with obtain the alfaro for Dofetilide (Tikosyn) at discharge. Pt stated he has [employer] prescription plan. CM called [employer] prescription plan/pharmacy [phone] and was told that the office is closed today and will be open
on Sunday. CM called [facility] and the pharmacy is closed today. CM will obtain the alfaro of Tikosyn on week days.
PCP: josep Kruse
Pharmacy: [facility]
D/C plan: home with anticipated no needs. CM will call [employer] prescription plan to obtain the alfaro of Tikosyn on week days.
CM will follow with discharge plan updates as hospitalization progresses
--- NOTE | 2024-01-20 12:40 | PTCARENOTE ---
Pt assisted OOB to chair with walker, PT, and this nurse. Pt weak, but tolerating OOB. O2 sat initially drop to 85% after move, and then recovered back to 93% sat within 5 mins, on high flow 50L, 80%. 20 mins later, I/S done with pt. Pt able to
reach 500 TV.
--- NOTE | 2024-01-20 14:54 | PTCARENOTE ---
Pt assisted back to bed, pt very tired, but tolerated very well for 2 1/2 hrs. O2 sat presently 96% on high flow 50L, 80% O2.
--- NOTE | 2024-01-20 16:47 | PTCARENOTE ---
Fio2 decreased to 45L, 80%. Pt tolerated, O2 sat=94%
[2024-01-20] MEDS: TOPROL XL 25 MG PO (20:02)
--- NOTE | 2024-01-20 20:19 | PTCARENOTE ---
Assumed care of pt. approx 190.
Currently in NSR Qtc 477/466, normotensive, normothermic.
Dose 4 of tikosyn loading given.
Weaning down HHF 45L/80%, will cont. to decrease as patient tolerates therapy, slightly dyspneic w/ minimal exertion, sp02 94-97%.
[2024-01-20] MEDS: PROSCAR 5 MG PO (21:47)
[2024-01-20] MEDS: LIPITOR 10 MG PO (21:48)
--- NOTE | 2024-01-20 22:05 | PTCARENOTE ---
Pt. given 4th dose of Tikosyn, post 2hr EKG completed resulting in an EKG change, pt. now appears to have a LBBB.
Dr. Reynoso correctional officer cardiology notified and sent image of EKG via TT.
--- NOTE | 2024-01-20 23:57 | PTCARENOTE ---
No change in pt. assessment.
[2024-01-21] VITALS (25 sets, daily range): BP systolic 91–130; BP diastolic 56–90; BMI 26.4
--- NOTE | 2024-01-21 02:19 | PTCARENOTE ---
Qtc/Qt on bedside monitor showing 512/488.
EKG ordered for AM.
[2024-01-21] MEDS: DECADRON 6 MG IV ×3 (05:02→22:07)
[2024-01-21 05:31] LABS: Hematocrit 33.8 % (39.0-52.0); Hemoglobin 11.9 g/dL (13.0-18.0); Mean Corp Hgb Conc. 35.2 g/dL (33.0-37.0); Mean Platelet Volume 9.3 fL (7.4-10.4); Platelet Count 202 10^3/uL (130-400); Red Blood Cell Count 3.84 10^6/uL (4.70-6.10); Red Cell Dist. Width 14.8 % (11.5-14.5); White Blood Cell Count 16.4 10^3/uL (4.8-10.8)
[2024-01-21 05:44] LABS: Blood Urea Nitrogen 62 mg/dl (9-20); Carbon Dioxide 26 mmol/L (22-30); Chloride 103 mmol/L (98-107); Estimated Creatinine Clearance 42 ml/min; Glucose 163 mg/dl (70-99); Potassium 4.6 mmol/L (3.5-5.1); Sodium 137 mmol/L (135-145); eGFR 48.95
[2024-01-21] MEDS: TIKOSYN 250 MCG PO ×2 (07:53→20:16)
[2024-01-21] MEDS: TOPROL XL 25 MG PO ×2 (07:55→20:16)
[2024-01-21] MEDS: VIBRAMYCIN 100 MG PO ×2 (07:55→20:17)
[2024-01-21] MEDS: MUCINEX 600 MG PO ×2 (07:55→20:16)
[2024-01-21] MEDS: ELIQUIS 2.5 MG PO ×2 (07:57→20:16)
[2024-01-21] MEDS: LASIX 40 MG IV (07:58)
--- NOTE | 2024-01-21 08:00 | PTCARENOTE ---
Patient received. He appears to be sleeping comfortably with eyes closed, lying still, respirations nonlabored. He rouses easily to name called. See assessment charted. Respiratory therapist weaning oxygen as tolerated. Patient voiding without
difficulty. No SCDs, on low dose Eliquis. Alert and oriented. Patient states that his breathing has improved. No CP. No dizziness or ANDREW. No c/o pain. Bed rails up, call light in reach.
--- NOTE | 2024-01-21 08:43 | CM ---
Addendum entered by Layne Dejesus 01/21/24 10:10:
ROLANDO spoke with Hoang at [facility]. Dofetilide cost for 30 days; 250mcg BID = $41.39
Original Note:
CM contacted [facility] to check cost of Tikosyn. Pharmacy opens at 9am. CM to call back when pharmacy staff is available.
--- NOTE | 2024-01-21 09:21 | W.PN.CARDCBS ---
Today's Communication / Plan
-
Cont Tikosyn load. Received third dose this AM Jan 4. His QTc is stable.
Converted to sinus after first dose of Tikosyn.
Remains in sinus
metoprolol was started this admit and has been titrated
Cardizem stopped as in HF and now on beta nelia
Remain off Digoxin.
Cont IV lasix and possible transition to oral lasix next 24 hrs. He was not on lasix as outpt.
BUN rising
Cr is stable at 1.4 Jan 20.
Cont pulm toilet as per herbicide sprayer.
Wean Hiflo O2 as able
Wean IV steroids and eventual transition to oral steroids.
Cont medical therapy of nonMI troponin
Check echo to reeval EF
Impression / Plan
-
PCP: Brant Kruse MD
Primary Systems Security Consultant: Dr. Tomi Ring
Primary Valet: Dr. Holly Dixon at [facility]
Impression:
Presentation with SOB, hypoxia
Left PNA
Elevated troponin peak 2.2
2:1 aflutter
Paroxysmal afib/aflutter/atach
s/p PVI 10/08/2019
s/p PVI, posterior wall ablation, mitral annular flutter ablation 11/17/2020
s/p posterior L atrial wall ablation, right atrial tachycardia ablation 06/30/2021
Failed sotalol
Chronic amiodarone therapy from 01/2022 until 09/12/23, stopped due to amio lung toxicity
s/p [employer] loop recorder 11/15/23
s/p complex ablation of 3 left atrial tachycardias and 2 right atrial tachycardias and SVT 01/16/2024
A-fib recurrence 01/17/2024 status post successful cardioversion in ER
Chronic anticoagulation with Eliquis
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
Bladder cancer s/p L robotic nephroureterectomy 09/20/2022, multiple TURBTs with new bladder tumors s/p resection
New metastatic disease to lung, started PadCev 12/19/23 weekly with keytruda q 21 days first dose 12/19/23, also prednisone and bactrim m,w,f
h/o nephrolithiasis with stone removal and stent placement
Chronic renal insufficiency
h/o aortic valve replacement 2007
HLD
BPH
Recent fall with chin laceration 12/2023
ECHO 09/05/23: EF 60 to 65%, stage III diastolic dysfunction, mild concentric LVH, dilated RV, severely dilated atria, mild to moderate MR, well-seated #23 AVR with peak/mean gradients 10/5 mmHg, moderate TR, PAP 57 mmHg
Plan:
Cont Tikosyn load. Received third dose this AM Jan 20. His QTc is stable.
Converted to sinus after first dose of Tikosyn.
Remains in sinus
metoprolol was started this admit and has been titrated
Cardizem stopped as in HF and now on beta nelia
Remain off Digoxin.
Cont IV lasix and possible transition to oral lasix next 24 hrs. He was not on lasix as outpt.
BUN rising
Cr is stable at 1.4 Jan 20.
Cont pulm toilet as per herbicide sprayer.
Wean Hiflo O2 as able
Wean IV steroids and eventual transition to oral steroids.
Cont medical therapy of nonMI troponin
Check echo to reeval EF
Discussed with nursing and with herbicide sprayer.
CCT: 30 min
Progress Note - Systems Security Consultant
Subjective
Pt seen and examined. No chest pain. Breathing better.
Objective
Labs:
01/21/24 04:50
01/21/24 04:50
Labs
Hgb 11.9 g/dL (13.0-18.0) L 01/21/24 04:50
Hct 33.8 % (39.0-52.0) L 01/21/24 04:50
Plt Count 202 10^3/uL (130-400) D 01/21/24 04:50
PT 15.8 Sec (11.4-14.6) H 01/19/24 13:35
INR 1.27 01/19/24 13:35
Sodium 137 mmol/L (135-145) 01/21/24 04:50
Potassium 4.6 mmol/L (3.5-5.1) 01/21/24 04:50
BUN 62 mg/dl (9-20) H 01/21/24 04:50
Creatinine 1.4 mg/dL (0.7-1.3) H 01/21/24 04:50
Glucose 163 mg/dl (70-99) H 01/21/24 04:50
Troponins
01/19/24 01/19/24 01/19/24
08:00 13:35 20:11
Troponin I 2.130 H* 2.220 H* 1.330 H* D
01/20/24
00:43
Troponin I 1.010 H*
Vital Signs and I&O:
Vital Signs
Temp Pulse Resp BP Pulse Ox
97.6 F 70 14 116/78 91
01/21/24 07:50 01/21/24 08:15 01/21/24 08:15 01/21/24 08:00 01/21/24 08:15
Vital Signs
Temp Pulse Resp BP Pulse Ox
97.6 F 70 14 11678 91
01/21/24 07:50 01/21/24 08:15 01/21/24 08:15 01/21/24 08:00 01/21/24 08:15
Intake & Output
01/19/24 01/20/24 01/21/24 01/22/24
07:59 06:59 06:59 06:59
Intake Total 900 / 900 60 / 60
Output Total 1999 / 1999 725 / 725
Balance -1100 / -1100 -665 / -665
Physical Exam
Physical Exam
General: No acute distress, AAOX3
Neck: Negative JVD
Heart: Regular, Negative S3 positive S1/S2, Negative S4, No murmur
Lungs: CTA b/l, negative wheezes/rales/rhonchi
Abd: Positive BS, NT/ND, neg rebound/rigidity/guarding
Ext: Negative cyanosis/clubbing/edema
Neuro: nonfocal
--- NOTE | 2024-01-21 09:35 | PTCARENOTE ---
Dr Vazquez at the bedside to assess. Update with patient status.
[2024-01-21] MEDS: STERILE WATER FOR INJECTION 20 ML IV (09:57)
[2024-01-21] MEDS: ROCEPHIN 2000 MG IV (09:57)
--- NOTE | 2024-01-21 10:00 | PTCARENOTE ---
Protocol EKG performed 2 hours after Tikosyn oral dose 5/5. QTc 0.482. SR with BBB, Left bundle, HR 85.
[2024-01-21] MEDS: NSS 500 IV (10:30)
--- NOTE | 2024-01-21 10:40 | PTCARENOTE ---
OOB to chair, oxygen saturation 88-90% with activity. On 50L/50%FiO2. Tolerated well with minimal SOB.
--- NOTE | 2024-01-21 11:06 | W.PN.INTV ---
Today's Communication / Plan
Recommendations
Continue IV corticosteroids
Complete 5 days of antibiotic
Diuretics
Follow chest x-ray depending on symptoms
Eventual repeat CT chest
Continue high flow oxygen maintain pulse ox above 90%
Assessment
-
88-year-old male with extremely complex cardiopulmonary history, recurrent atrial fibrillation/flutter with rapid ventricular response status post recent ablation and 01/15, requiring cardioversion 01/16 in the ED, recently diagnosed metastatic
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 We are asked to help from pulmonary standpoint
Acute hypoxic respiratory insufficiency
Requiring high flow oxygen
Admitted 01/17
Transferred to ICU 01/18
Bilateral interstitial changes, left greater than right
Progressive interstitial disease per my review
Atrial fibrillation with rapid ventricular response
Now on Tikosyn
Metastatic urothelial cell cancer
Keytruda/Padvec immunotherapy started in the last month
s/p bx at [facility]
Interstitial lung disease
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
Started on prednisone 50 mg, taper down to 10 (per [facility] 11/2023)
Renal insufficiency, creatinine 1.4
Conditions present prior to admission
History of atrial fibrillation/atrial flutter
Multiple PVI
Multiple cardioversions
Failed sotalol, off amiodarone since August 2023 (Amio tox)
History of biologic aortic valve replacement 2007
Hypertension/hyperlipidemia
Recently diagnosed metastatic urothelial cell cancer to the lung
Status post bronchoscopy at [facility] October 2024
Plan/recommendations:
Hypoxemic respiratory failure: Remains on high flow oxygen. 50% FiO2-50% liters per minute.
Pulse ox remains borderline.
Sitting out of bed comfortably, able to speak in full sentences.
-
Reviewed patient's history at length. Extremely complex history with care both at [place] and at [facility]
Notable features are baseline chronic interstitial disease not requiring oxygen therapy as of 6 months ago, with recently initiated Keytruda and Padcev over the past 4 to 6 weeks
Incidence of pulmonary toxicity with Keytruda well-established
Unclear whether combination of these medications may lead to increased interstitial pneumonitis. There is documented worsening neuropathy and fatigue when these medications are taken in combination
Continue IV steroids, started 01/18- Decreased to q8hr. 01/21/2024
Once there is clinical improvement transition to prednisone 40 mg with a very slow taper going forward
Difficult to differentiate between infectious process but would agree with ceftriaxone/doxycycline-at this point given rapid improvement chest x-ray and lack of infection symptom will complete 5 days of antibiotics.
Will follow radiographically.
Follow blood sugars
Insulin sliding scale
Cardiology following closely. Rate control has been an issue
Failed sotalol, amiodarone stopped for toxicity reasons
on Tikosyn heart rate has improve
Continue diuretics.
Cardiology following closely
Recent cardiac catheterization including right heart catheterization August 2023 reviewed. At that time wedge pressure was normal, RV systolic pressure 43
Patient is high risk for respiratory failure, may require intubation and mechanical ventilation
So far slowly improving.
Hopefully intubation can be avoided
Pulmonary will continue to follow.
Will transition to intermediate care unit.
Subjective Dataa
Subjective Data
Date of Service:
Date of Service: January 21, 2024
Chief Complaint: Tire Molder Follow Up
Objective Data
Data Reviewed
Vital Signs / I&O / Oxygen:
Vital Signs
Temp Pulse Resp BP Pulse Ox
97.6 F 75 19 120/70 93
01/21/24 07:50 01/21/24 10:15 01/21/24 10:15 01/21/24 10:00 01/21/24 10:15
Intake and Output
01/20/24 01/21/24 01/22/24
06:59 06:59 06:59
Intake Total 900 / 900 180 / 180
Output Total 1999 1300 / 1300
Balance -1100 / -1100 -1120 / -1120
SaO2 93
Nasal Cannula flow liters per 50
minute
Physical Exam
General: Comfortable
HEENT: Normocephalic and Anicteric
Cardiovascular: S1-S2, Regular Rhythm, Murmur (n) and Rub (n)
Respiratory: Wheeze (n), Crackles (Few scattered), Rhonchi (n) and Non-Labored Respirations
GI: Soft, Non Distended and Non Tender
Neurology: Awake, Alert and No Motor Deficits (Able to sit up, moves all extremities)
Skin: Good Color (n), Cyanosis (n) and Jaundice (n)
Labs/Micro/Reports
Lab Data
01/21/24 04:50
01/21/24 04:50
Microbiology
01/19/24 03:46 Nose Nasal Screen MRSA (PCR) - Final
MRSA not detected - performed by PCR methodology.
01/18/24 21:01 Urine Legionella Urinary Antigen - Final
Negative for Legionella pneumophila Serogroup 1 antigen.
A negative result does not rule out the possiblity of
Legionella infection due to other serogroups or species of
Legionella. Clinical correlation is recommended.
01/18/24 21:01 Urine Streptococcus pneumoniae Antigen (M - Final
Negative for Streptococcus pneumoniae antigen.
A negative result does not exclude infection with
Streptococcus pneumoniae. Clinical correlation is
recommended.
01/18/24 10:17 Nasal Swab Influenza Types A & B (MIO) - Final
Negative for Influenza A & B, NAAT
Negative results must be combined with clinical observations
and patient history.
Nucleic Acid Amplification test (NAAT)performed on the
Identify platform.
--- NOTE | 2024-01-21 11:10 | PTCARENOTE ---
Up to BSC with SBA. Tolerated fair. On 50L/50% FiO2, saturating 85% with activity. Moderate recovery period. Large loosely formed BM. Assisted Back to chair.
--- NOTE | 2024-01-21 11:26 | W.PN.HOSP.TC ---
Today's Communication/Plan
-
Wean o2 as tolerated
IV antibiotics
IV steroids
IV lasix
monitor Cr
Assessment / Plan
Assessment / Plan
Gen-AAOx3, NAD
HEENT-NC, AT, anicteric, clear oral mm
Neck-supple
CV-reg, no M, +S1/S2
Lungs-mild bilateral rhonchi
Abd-soft, NT, ND
Ext-no edema
Musculoskeletal-no cyanosis, clubbing
Skin-warm and dry
Neuro-grossly non-focal
Psych-calm, cooperative
#Acute hypoxic respiratory failure - multifactorial etiology including immunotherapy related pneumonitis, interstitial lung disease, pulmonary edema due to CHF, community-acquired pneumonia.
Stable on high flow oxygen, wean down as able. Currently 50 L, 50% FiO2.
Complicated pulmonary history noted. Recent CT chest dated 11/27/2023 showed left upper lobe mass measuring up to 3.2 cm in diameter. Predominantly peripheral and basilar interstitial and ground glass opacities. This is mostly consistent with
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 He is followed by pulmonary as an outpatient. Not on home oxygen but was recently discharged from our hospital 01/16 on 3 L of oxygen.
Started on IV high dose decadron
#Acute nonischemic myocardial injury- likely 2/2 given fast rates from atrial fibrillation and respiratory failure.
Troponin elevation noted, will trend. Currently denies chest pain.
#Acute heart failure with preserved EF exacerbation
not on diuretics at home. Weight now trending down on IV Lasix.
BNP elevated.
Last echocardiogram was 09/05/2023, LVEF 60 to 65%, stage III diastolic dysfunction, severely dilated atria, mild to moderate MR, moderate TR.
#Sepsis due to community-acquired pneumonia -likely multilobar, chest x-ray 01/18 reviewed and shows diffuse infiltrates, somewhat improved in the left lower lobe compared to previous film 01/17.
Continue ceftriaxone, doxycycline. Check sputum.
Leukocytosis resolved. Afebrile.
Influenza, COVID-negative. Legionella, pneumococcus antigens negative. MRSA screen negative.
#Atrial fibrillation with rapid ventricular response -converted to sinus rhythm
Rates controlled currently. Continue Tikosyn per cardiology. Qtc stable
Off Cardizem drip. Oral Cardizem dose to be held today given controlled rate.
Metoprolol started and dose increased by cardiology. Continue Eliquis for stroke prophylaxis.
Underwent recent ablation for supraventricular tachycardia on 01/15. Cardioversion on 12/26 for symptomatic atrial fibrillation.
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
Admission creatinine 1.6 on January 17, 1.7 on January 16.
Etiology of JUAN possibly related to cardiorenal syndrome from CHF.
History of bladder cancer -treated with left robotic nephroureterectomy September 2022. Known metastatic disease to the lung. On weekly Keytruda and Padcev. Bactrim 3 times a week for PCP prophylaxis, currently on hold.
AVR -2007.
BPH
hyperlipidemia -on simvastatin.
History of nephrolithiasis
Full code
Anticipated Discharge: > 48 hours
Subjective/Interval History
-
Date of Service: January 21, 2024
sitting in chair
on 50L/50%FIO2
states feeling better
Objective Data
-
Labs:
Laboratory Results
01/21/24
04:50
WBC 16.4 H
Hgb 11.9 L
Hct 33.8 L
Plt Count 202 D
Sodium 137
Potassium 4.6
Chloride 103
Carbon Dioxide 26
BUN 62 H
Creatinine 1.4 H
Glucose 163 H
Calcium 9.0
Vital Signs:
Vital Signs
Temp Pulse Resp BP Pulse Ox
97.6 F 75 19 120/70 93
01/21/24 07:50 01/21/24 10:15 01/21/24 10:15 01/21/24 10:00 01/21/24 10:15
I&O
01/20/24 01/21/24 01/22/24
06:59 06:59 06:59
Intake Total 900 / 900 180 / 180
Output Total 2000 / 2000 1500 / 1500
Balance -1100 / -1100 -1320 / -1320
Data Reviewed
-
Total Time Spent with Patient (in minutes): 52
--- NOTE | 2024-01-21 12:10 | PTCARENOTE ---
No marked change in patient assessment. Tolerating OOB to chair fair, slightly groggy, states he feels tired. Saturating 95-96% on 50L/50% FiO2. Denies CP, no c/o pain, no dizziness or ANDREW. Stable on CM, SR with BBB, HR 70s.
--- NOTE | 2024-01-21 15:15 | PTCARENOTE ---
Patient appears to be sleeping comfortably with eyes closed, lying still and respirations nonlabored. Saturating well on 50L/40% FiO2. ECHO performed at bedside. Awaiting interpretation. SR 60-70s on CM. BP stable. No c/o pain. Patience at
bedside.
--- NOTE | 2024-01-21 15:57 | PTCARENOTE ---
Essentially no change in patient assessment. Oxygen at 40L/40% FiO2. Respiratory therapist weaning O2 as tolerated.
--- NOTE | 2024-01-21 17:30 | PTCARENOTE ---
Transitioned to Mid flow oxygen at 10L at 1715. Tolerating well, sats 95%. Patient states he is comfortable.
--- NOTE | 2024-01-21 19:46 | PTCARENOTE ---
Report endorsed to oncoming shift. Questions answered.
--- NOTE | 2024-01-21 21:22 | PTCARENOTE ---
Assumed care of pt. approx 1900.
Downgraded to IMU, currently on midflo, titrating down as appropriate.
Currently 8L midflo. SPo2 97. No longer dyspenic at rest, however slight exertion increases work of breathing.
Remains in sinus, moderate amount of PAC ectopy. QTC under 500.
[2024-01-21] MEDS: LIPITOR 10 MG PO (22:07)
[2024-01-21] MEDS: PROSCAR 5 MG PO (22:07)
[2024-01-22] VITALS (16 sets, daily range): BP systolic 94–125; BP diastolic 55–92; PULSE 73; O2SAT 96; BMI 26.4
--- NOTE | 2024-01-22 04:40 | PTCARENOTE ---
pt. assessment unchanged.
[2024-01-22] MEDS: DECADRON 6 MG IV ×3 (05:12→23:22)
[2024-01-22 06:03] LABS: Blood Urea Nitrogen 68 mg/dl (9-20); Calcium 8.9 mg/dl (8.4-10.2); Carbon Dioxide 26 mmol/L (22-30); Chloride 103 mmol/L (98-107); Estimated Creatinine Clearance 45 ml/min; Glucose 156 mg/dl (70-99); Potassium 4.7 mmol/L (3.5-5.1); Sodium 140 mmol/L (135-145)
--- NOTE | 2024-01-22 08:58 | W.PN.PUL3 ---
Today's Communication / Plan
-
Complete antibiotics today
Continue diuresis
Monitor electrolytes and creatinine
Continue to wean down oxygen
Incentive spirometer
Physical therapy as tolerated.
Assessment
-
88-year-old male with extremely complex cardiopulmonary history, recurrent atrial fibrillation/flutter with rapid ventricular response status post recent ablation and 01/15, requiring cardioversion 01/16 in the ED, recently diagnosed metastatic
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 We are asked to help from pulmonary standpoint
Acute hypoxic respiratory insufficiency
Requiring high flow oxygen
Admitted 01/17
Transferred to ICU 01/18
Bilateral interstitial changes, left greater than right
Progressive interstitial disease per my review
Atrial fibrillation with rapid ventricular response
Now on Tikosyn
Metastatic urothelial cell cancer
Keytruda/Padvec immunotherapy started in the last month
s/p bx at [facility]
Interstitial lung disease
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
Started on prednisone 50 mg, taper down to 10 (per [facility] 11/2023)
Renal insufficiency, creatinine 1.4
Conditions present prior to admission
History of atrial fibrillation/atrial flutter
Multiple PVI
Multiple cardioversions
Failed sotalol, off amiodarone since August 2023 (Amio tox)
History of biologic aortic valve replacement 2007
Hypertension/hyperlipidemia
Recently diagnosed metastatic urothelial cell cancer to the lung
Status post bronchoscopy at [facility] October 2024
Plan/recommendations:
Clinically improving 01/22/2024
Down to 6 L nasal cannula-high flow oxygen has been discontinued
Continue to wean down to his baseline. Maintain pulse ox above 90%.
-
Extremely complex history with care both at [place] and at [facility]
Notable features are baseline chronic interstitial disease not requiring oxygen therapy as of 6 months ago, with recently initiated Keytruda and Padcev over the past 4 to 6 weeks
Incidence of pulmonary toxicity with Keytruda well-established
Unclear whether combination of these medications may lead to increased interstitial pneumonitis. There is documented worsening neuropathy and fatigue when these medications are taken in combination
Continue IV steroids, started 01/18- Decreased to q8hr. 01/21/2024-continue without change today.
Once there is clinical improvement transition to prednisone 40 mg with a very slow taper going forward
Difficult to differentiate between infectious process but would agree with ceftriaxone/doxycycline-at this point given rapid improvement chest x-ray and lack of infection symptom will complete 5 days of antibiotics.
Will follow radiographically in the next few days.
Eventual CT chest.
Physical therapy/Occupational Therapy as able
Incentive spirometry
Cardiology following closely. Heart rate has improved.
Failed sotalol, amiodarone stopped for toxicity reasons
on Tikosyn heart rate has improve
Continue diuretics.
Cardiology following closely
Recent cardiac catheterization including right heart catheterization August 2023 reviewed. At that time wedge pressure was normal, RV systolic pressure 43
Pulmonary will continue to follow.
Subjective Data
-
Date of Service:
Date of Service: January 22, 2024
Chief Complaint: Pulmonary Follow Up (Hypoxemic respiratory failure)
Subjective:
Patient feels better.
Feels debilitated.
Not producing phlegm.
Denies hemoptysis.
Review of Systems
General: Fever (n)
Cardiopulmonary: Dyspnea (none at rest)
GI: Abdominal Pain (n) and Nausea
Objective Data
Data Reviewed
Vital Signs / I&O / Oxygen:
Vital Signs
Temp Pulse Resp BP Pulse Ox
97.5 F 65 17 111/82 98
01/22/24 08:08 01/22/24 06:00 01/22/24 06:00 01/22/24 06:00 01/22/24 06:00
Intake and Output
01/21/24 01/22/24 01/23/24
06:59 06:59 06:59
Intake Total 900 / 900 1310 / 1310
Output Total 2000 / 1999 2800 / 2800
Balance -1100 / -1100 -1490 / -1490
SaO2 98
Nasal Cannula flow liters per 8
minute
Physical Exam
General: Comfortable
HEENT: Normocephalic
Cardiovascular: S1-S2
Respiratory: Crackles (Both bases)
GI: Soft and Non Distended
Neurology: Awake, Alert and No Motor Deficits
Labs/Micro/Reports
Lab Data
01/21/24 04:50
01/22/24 05:11
Microbiology
01/19/24 03:46 Nose Nasal Screen MRSA (PCR) - Final
MRSA not detected - performed by PCR methodology.
01/18/24 21:01 Urine Legionella Urinary Antigen - Final
Negative for Legionella pneumophila Serogroup 1 antigen.
A negative result does not rule out the possiblity of
Legionella infection due to other serogroups or species of
Legionella. Clinical correlation is recommended.
01/18/24 21:01 Urine Streptococcus pneumoniae Antigen (M - Final
Negative for Streptococcus pneumoniae antigen.
A negative result does not exclude infection with
Streptococcus pneumoniae. Clinical correlation is
recommended.
--- NOTE | 2024-01-22 09:00 | PTCARENOTE ---
pt awake and alert , NSR on monitor , lungs diminished , on 6L nc with sats of 94% , no complaints , IMU level of care
[2024-01-22] MEDS: VIBRAMYCIN 100 MG PO ×2 (09:03→19:14)
[2024-01-22] MEDS: MUCINEX 600 MG PO ×2 (09:03→19:14)
[2024-01-22] MEDS: LASIX 40 MG IV (09:03)
[2024-01-22] MEDS: TOPROL XL 25 MG PO (09:04)
[2024-01-22] MEDS: TIKOSYN 250 MCG PO ×2 (09:04→19:14)
[2024-01-22] MEDS: ELIQUIS 2.5 MG PO ×2 (09:04→19:14)
[2024-01-22] MEDS: STERILE WATER FOR INJECTION 20 ML IV (09:12)
[2024-01-22] MEDS: ROCEPHIN 2000 MG IV (09:12)
--- NOTE | 2024-01-22 09:12 | W.PN.CARDCBS ---
Addendum entered and electronically signed by Elvis Rodriguez MD 01/22/24 13:15:
I saw and examined the patient.
The Sugar Boiler's note was reviewed and I agree with the note.
Comment: Briefly, 88-year-old man past medical history of heart failure with preserved ejection fraction, atrial fibrillation/flutter with multiple prior ablations and interstitial lung disease on home O2 who presents with worsening hypoxia
requiring high flow O2 in the medical ICU. Respiratory decline was thought to be multifactorial, in part due to heart failure but also interstitial lung disease, metastatic cancer and possible pneumonitis.
Treated with IV Lasix, steroids and antibiotics and now weaned down to 6 L supplemental oxygen
Would continue IV Lasix for now, hopefully can transition back to p.o. in the next 24 to 48 hours
In regards to his atrial fibrillation/flutter he was transitioned to Tikosyn this admission
QTc has been stable
Would continue current dosing
New to metoprolol this admission, will decrease to 25mg daily
Eliquis for cardioembolic prophylaxis
Original Note:
Today's Communication / Plan
-
Ongoing diuresis with stable Cre
QTc stable on ECG after 5th dose of Tikosyn yesterday morning, recheck ECG today, ordered by me
Impression / Plan
-
PCP: Brant Kruse MD
Primary Cigar Maker: Dr. Tomi Ring
Primary Environmental Program Manager: Dr. Holly Dixon at [place]
Impression:
Presentation with SOB, hypoxia 01/18/24
Left PNA
Elevated troponin peak 2.2
2:1 aflutter
Paroxysmal afib/aflutter/atach
s/p PVI 10/08/2019
s/p PVI, posterior wall ablation, mitral annular flutter ablation 11/17/2020
s/p posterior L atrial wall ablation, right atrial tachycardia ablation 06/30/2021
Failed sotalol
Chronic amiodarone therapy from 01/2022 until 09/12/23, stopped due to amio lung toxicity
s/p [employer] loop recorder 11/15/23
s/p complex ablation of 3 left atrial tachycardias and 2 right atrial tachycardias and SVT 01/16/2024
A-fib recurrence 01/17/2024 status post successful cardioversion in ER
s/p Left Atach and Right Atach ablations 01/16/24
Tikosyn loading 01/19/24
Chronic anticoagulation with Eliquis
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
Bladder cancer s/p L robotic nephroureterectomy 09/20/2022, multiple TURBTs with new bladder tumors s/p resection
New metastatic disease to lung, started PadCev 12/19/23 weekly with Keytruda q 21 days first dose 12/19/23, also prednisone and bactrim m,w,f
h/o nephrolithiasis with stone removal and stent placement
Chronic renal insufficiency
h/o aortic valve replacement 2007
HLD
BPH
Recent fall with chin laceration 12/2023
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
ECHO 09/05/23: EF 60 to 65%, stage III diastolic dysfunction, mild concentric LVH, dilated RV, severely dilated atria, mild to moderate MR, well-seated #23 AVR with peak/mean gradients 10/5 mmHg, moderate TR, PAP 57 mmHg
Echo 01/21/24: EF 59%, mild concentric LVH, stage III diastolic dysfunction, normal RV size and function, well-seated tissue AVR peak/mean 23/11 mmHg without aortic regurgitation, mild to moderate TR with PAP 35 to 40 mmHg
Plan:
-Patient admitted with multifactorial hypoxic respiratory insufficiency and initially required high flow oxygen in ICU. Patient with ILD and possible h/o amio lung toxicity, but then later diagnosed with lung mets from primary urothelial CA and
treatment with Keytruda and Padcev was started with may have increased interstitial pneumonitis.
-Patient being followed by Pulm and Heme/Onc. Decadron weaned to 6 mg IV q 8 hours 01/21/24. Also completed 5 days of ceftriaxone and doxycycline.
-Oxygen requirements improved to 6 L NC on 01/22/24
-Patient has also been diuresed with Lasix 40 mg IV daily. Weight is down 15 lbs since admission. Patient was not taking a diuretic prior to admission. Cre stable at 1.3.
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
-Patient with a h/o symptomatic Afib/flutter/tach and last ablation was an Atach ablation 01/16/24. Patient with 2:1 atypical atrial flutter on admission and was loaded with Tikosyn starting 01/19/24 and patient spontaneously converted to SR with
loading. 5th dose of Tikosyn was given 01/21/24 AM. QTc stable at 482 ms on ECG 2 hours after 5th dose of 01/21/24 AM as reviewed by me. Cont Tikosyn 250 mcg q 12 hours and check daily ECGs while admitted.
-Patient was digoxin loaded this admission, but digoxin now stopped.
-Outpatient dose of Cardizem CD 120 mg BID stopped this admission due to acute HF.
-New to Toprol XL 25 mg BID
-Echo summarized above. EF 59% with stable AVR gradients.
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
Progress Note - Cigar Maker
Subjective
Date of Service: January 22, 2024
Feels better, his son is visiting him
Objective
Labs:
01/21/24 04:50
01/22/24 05:11
Labs
Hgb 11.9 g/dL (13.0-18.0) L 01/21/24 04:50
Hct 33.8 % (39.0-52.0) L 01/21/24 04:50
Plt Count 202 10^3/uL (130-400) D 01/21/24 04:50
PT 15.8 Sec (11.4-14.6) H 01/19/24 13:35
INR 1.27 01/19/24 13:35
Sodium 140 mmol/L (135-145) 01/22/24 05:11
Potassium 4.7 mmol/L (3.5-5.1) 01/22/24 05:11
BUN 68 mg/dl (9-20) H 01/22/24 05:11
Creatinine 1.3 mg/dL (0.7-1.3) 01/22/24 05:11
Glucose 156 mg/dl (70-99) H 01/22/24 05:11
Troponins
01/19/24 01/19/24 01/20/24
13:35 20:11 00:43
Troponin I 2.220 H* 1.330 H* D 1.010 H*
Vital Signs and I&O:
Vital Signs
Temp Pulse Resp BP Pulse Ox
97.5 F 76 17 117/84 98
01/22/24 08:08 01/22/24 09:04 01/22/24 06:00 01/22/24 09:04 01/22/24 06:00
Vital Signs
Temp Pulse Resp BP Pulse Ox
97.5 F 76 17 117/84 98
01/22/24 08:08 01/22/24 09:04 01/22/24 06:00 01/22/24 09:04 01/22/24 06:00
Intake & Output
01/20/24 01/21/24 01/22/24 01/23/24
06:59 06:59 06:59 06:59
Intake Total 900 / 900 1310 / 1310
Output Total 2000 / 1999 2800 / 2800
Balance -1100 / -1100 -1490 / -1490
Physical Exam
Physical Exam
GEN: AAO x3
HEENT: MMM
LUNGS: Wearing oxygen at 6 L NC. No audible wheeze
CV: SR on tele
ABD: ND
EXT: No edema B/L LE
NEURO: Gross non-focal
SKIN: No rash
--- NOTE | 2024-01-22 10:04 | W.PN.ONC ---
Today's Communication / Plan
-
Steroid taper per pulmonary
to finish abx course today
diuresis and afib mgmt per cardiology
anticipate no further keytruda immunotherapy, only padcev chemo
outpatient f/u with Dr. Rubalcava
Impression
Impression
Stage IV urothelial carcinoma
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
Atrial fibrillation
Aortic valve replacement
Chronic renal insufficiency
Hyperlipidemia
BPH
Plan
Plan
Steroid taper per pulmonary
to finish abx course today
diuresis and afib mgmt per cardiology
anticipate no further keytruda immunotherapy, only padcev chemo
outpatient f/u with Dr. Rubalcava
Subjective/Objective
Subjective/Objective
Feeling okay, states that breathing is improving
Vital Signs:
Vital Signs
Temp Pulse Resp BP Pulse Ox
97.5 F 76 17 117/84 98
01/22/24 08:08 01/22/24 09:04 01/22/24 06:00 01/22/24 09:04 01/22/24 06:00
Lab Results:
Laboratory Data
WBC 16.4 10^3/uL (4.8-10.8) H 01/21/24 04:50
Hgb 11.9 g/dL (13.0-18.0) L 01/21/24 04:50
Plt Count 202 10^3/uL (130-400) D 01/21/24 04:50
PT 15.8 Sec (11.4-14.6) H 01/19/24 13:35
INR 1.27 01/19/24 13:35
eGFR 53.50 01/22/24 05:11
--- NOTE | 2024-01-22 11:50 | W.PN.HOSP.TC ---
Today's Communication/Plan
-
Continue to wean oxygen
Continue with antibiotic
Continue with IV Lasix
IV steroids
Wean oxygen as tolerated
Continue with PT/OT
Assessment / Plan
Assessment / Plan
Gen-AAOx3, NAD
HEENT-NC, AT, anicteric, clear oral mm
Neck-supple
CV-reg, no M, +S1/S2
Lungs-mild bilateral rhonchi, 6L midflow
Abd-soft, NT, ND
Ext-no edema
Musculoskeletal-no cyanosis, clubbing
Skin-warm and dry
Neuro-grossly non-focal
Psych-calm, cooperative
#Acute hypoxic respiratory failure - multifactorial etiology including immunotherapy related pneumonitis, interstitial lung disease, pulmonary edema due to CHF, community-acquired pneumonia.
-Oxygen and now on 6 L of mid flow.
Complicated pulmonary history noted. Recent CT chest dated 11/27/2023 showed left upper lobe mass measuring up to 3.2 cm in diameter. Predominantly peripheral and basilar interstitial and ground glass opacities. This is mostly consistent with
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 He is followed by pulmonary as an outpatient. Not on home oxygen but was recently discharged from our hospital 01/16 on 3 L of oxygen.
Started on IV high dose decadron 6 mg every 8 hours
#Acute nonischemic myocardial injury- likely 2/2 given fast rates from atrial fibrillation and respiratory failure.
Troponin elevation noted, will trend. Currently denies chest pain.
#Acute heart failure with preserved EF exacerbation
not on diuretics at home. Weight now trending down on IV Lasix.
BNP elevated.
Last echocardiogram was 09/05/2023, LVEF 60 to 65%, stage III diastolic dysfunction, severely dilated atria, mild to moderate MR, moderate TR.
#Sepsis due to community-acquired pneumonia -likely multilobar, chest x-ray 01/18 reviewed and shows diffuse infiltrates, somewhat improved in the left lower lobe compared to previous film 01/17.
Continue ceftriaxone, doxycycline. Check sputum. Complete fininite course of antibiotics.
Leukocytosis resolved. Afebrile.
Influenza, COVID-negative. Legionella, pneumococcus antigens negative. MRSA screen negative.
#Atrial fibrillation with rapid ventricular response -converted to sinus rhythm
Rates controlled currently. Continue Tikosyn per cardiology. Qtc stable
Off Cardizem drip. Oral Cardizem dose to be held today given controlled rate.
Metoprolol started and dose increased by cardiology. Continue Eliquis for stroke prophylaxis.
Underwent recent ablation for supraventricular tachycardia on 01/15. Cardioversion on 12/26 for symptomatic atrial fibrillation.
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
Admission creatinine 1.6 on January 17, 1.7 on January 16.
Etiology of JUAN possibly related to cardiorenal syndrome from CHF.
Cr slowly imrpoving
History of bladder cancer -treated with left robotic nephroureterectomy September 2022. Known metastatic disease to the lung. On weekly Keytruda and Padcev. Bactrim 3 times a week for PCP prophylaxis, currently on hold.
AVR -2007.
BPH
hyperlipidemia -on simvastatin.
History of nephrolithiasis
Full code
PT/OT-SNF.
Anticipated Discharge: > 48 hours
Subjective/Interval History
-
Date of Service: January 22, 2024
states feeling better
HR has improved
Oxygen requirement improving-now on 6L midflow
Objective Data
-
Labs:
Laboratory Results
01/22/24
05:11
Sodium 140
Potassium 4.7
Chloride 103
Carbon Dioxide 26
BUN 68 H
Creatinine 1.3
Glucose 156 H
Calcium 8.9
Vital Signs:
Vital Signs
Temp Pulse Resp BP Pulse Ox
97.6 F 76 17 117/84 98
01/22/24 11:38 01/22/24 09:04 01/22/24 06:00 01/22/24 09:04 01/22/24 06:00
I&O
01/21/24 01/22/24 01/23/24
06:59 06:59 06:59
Intake Total 900 / 900 1310 / 1310
Output Total 2000 / 1999 2800 / 2800
Balance -1100 / -1100 -1490 / -1490
Data Reviewed
-
Total Time Spent with Patient (in minutes): 52
--- NOTE | 2024-01-22 12:59 | PTCARENOTE ---
pt oob in chair , ambulating to bathroom , sats drop to mid 80s with ambulation , pt SOB , pt takes several minutes to recover , pt seen by PT and ambulated in room with sat down to mid 80s , currently on 7L mid flow with sat of 96%, visiting
and updated on current plan of care and condition , pt is now IVU level of care
--- NOTE | 2024-01-22 14:36 | CM ---
CM following re: discharge planning.
Reviewed pt's chart, met with pt. pt stated he feels very weak. Pt requires 40 L HFNC with FIO2 40%, weaning off O2, continue supportive care.
PT and OT evaluations noted - SNF level of care recommended. pt is aware, egressed his agreement. A list of SNFs provided. Following SNFs preferred: [facility], [facility] and [facility]. A referral to above SNFs made.
D/C plan: preferred SNF when medically stable.
CM will follow with discharge plan updates as hospitalization progresses.
[2024-01-22] MEDS: NSS IV (16:04)
--- NOTE | 2024-01-22 16:08 | PTCARENOTE ---
pt to transfer to IVU room 2244 , report given to receiving RN , pt aware of transfer
--- NOTE | 2024-01-22 18:10 | PTCARENOTE ---
Pt received at 1645 from ICU. Pt on 6L midflow, sat 95%. Pt denies any sob at rest. SR, rate in the 70's to 80's.
[2024-01-22] MEDS: LIPITOR 10 MG PO (23:22)
[2024-01-22] MEDS: PROSCAR 5 MG PO (23:22)
[2024-01-23] VITALS (12 sets, daily range): BP systolic 92–130; BP diastolic 70–94; PULSE 67; O2SAT 94; BMI 25.8
--- NOTE | 2024-01-23 03:09 | PTCARENOTE ---
Rec'd pt a change of shift. At 18:26 TELE monitor alarmed showing a 20 beat run of VTACH. Pt reported feeling a burping sensation. Tikosyn, Eliquis, Mucinex, and Doxycycline given as ordered. VS taken and stable (see flowchart). Dr Bennett made
aware and instructed to continue monitoring pt. No new orders rec'd. R chest wall SQ port accessed and intact. PT denies any pain or discomfort and resting with call alexandre in reach. Plan of care ongoing.
[2024-01-23] MEDS: DECADRON 6 MG IV ×3 (05:40→22:32)
[2024-01-23 06:44] LABS: Blood Urea Nitrogen 65 mg/dl (9-20); Calcium 8.8 mg/dl (8.4-10.2); Carbon Dioxide 30 mmol/L (22-30); Chloride 102 mmol/L (98-107); Estimated Creatinine Clearance 42 ml/min; Glucose 148 mg/dl (70-99); Potassium 4.6 mmol/L (3.5-5.1); Sodium 140 mmol/L (135-145); eGFR 48.95
--- NOTE | 2024-01-23 07:51 | W.PN.ONC2 ---
Today's Communication / Plan
-
As above.
Impression
Impression
Stage IV urothelial carcinoma
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
Atrial fibrillation
Aortic valve replacement
Chronic renal insufficiency
Hyperlipidemia
BPH
Plan
Plan
Steroid taper per pulmonary
anticipate no further keytruda immunotherapy, only padcev chemo
outpatient f/u with Dr. Rubalcava
Subjective/Objective
Chief Complaint
ACS Heme Onc
Subjective
Slow improvement in breathing.
Vital Signs:
Vital Signs
Temp Pulse Resp BP Pulse Ox
97.7 F 65 16 120/85 95
01/23/24 07:05 01/23/24 04:24 01/23/24 07:05 01/23/24 04:24 01/23/24 07:05
Lab Results:
Laboratory Data
WBC 16.4 10^3/uL (4.8-10.8) H 01/21/24 04:50
Hgb 11.9 g/dL (13.0-18.0) L 01/21/24 04:50
Plt Count 202 10^3/uL (130-400) D 01/21/24 04:50
PT 15.8 Sec (11.4-14.6) H 01/19/24 13:35
INR 1.27 01/19/24 13:35
eGFR 48.95 01/23/24 05:45
Physical Exam
Cardiology: S1 and S2
Pulmonary: Rhonchi
GI: Soft
Extremities: No C/C/E
[2024-01-23] MEDS: TOPROL XL 25 MG PO (08:35)
[2024-01-23] MEDS: TIKOSYN 250 MCG PO ×2 (08:35→19:59)
[2024-01-23] MEDS: MUCINEX 600 MG PO ×2 (08:35→19:59)
[2024-01-23] MEDS: ELIQUIS 2.5 MG PO ×2 (08:35→19:59)
--- NOTE | 2024-01-23 09:20 | W.PN.PUL3 ---
Today's Communication / Plan
-
CXR is improving which is encouraging
Complete antibiotics on 01/22/2024
Continue diuresis per cards
Continue systemic steroids with slow wean
Monitor electrolytes and creatinine
Continue to wean down oxygen as tolerated
Ambulatory pulse oximetry prior to discharge
Incentive spirometer strongly encouraged 10x per hr for at least 4 hrs a day
PT/OT as tolerated
Eventual repeat CT chest
Pulmonary service will continue to follow along
Assessment
-
88-year-old male with extremely complex cardiopulmonary history, recurrent atrial fibrillation/flutter with rapid ventricular response status post recent ablation and 01/15, requiring cardioversion 01/16 in the ED, recently diagnosed metastatic
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 We are asked to help from pulmonary standpoint
Impression:
Acute hypoxic respiratory insufficiency now on midflow nasal cannula
Bilateral interstitial changes, left greater than right likely due to acute pulmonary edema in setting of rapid A-fib but also pneumonitis also suspected
Atrial fibrillation with rapid ventricular response
Metastatic urothelial cell cancer s/p Bx at [facility] (Keytruda/Padvec immunotherapy started in the last month)
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
Renal insufficiency, creatinine 1.4
Conditions present prior to admission
History of atrial fibrillation/atrial flutter
Multiple PVI
Multiple cardioversions
Failed sotalol, off amiodarone since August 2023 (Amio tox)
History of biologic aortic valve replacement 2007
Hypertension/hyperlipidemia
Recently diagnosed metastatic urothelial cell cancer to the lung
Status post bronchoscopy at [facility] October 2024
Plan/recommendations:
Clinically improving 01/22/2024 and also today, both subjetively and objectively
Down to 6 L nasal cannula on midflow - his high flow oxygen has been discontinued
Continue to wean down to his baseline. Maintain pulse ox above 90%.
-
Extremely complex history with care both at [place] and at [facility]
Notable features are baseline chronic interstitial disease not requiring oxygen therapy as of 6 months ago, with recently initiated Keytruda and Padcev over the past 4 to 6 weeks
Incidence of pulmonary toxicity with Keytruda well-established
Unclear whether combination of these medications may lead to increased interstitial pneumonitis. There is documented worsening neuropathy and fatigue when these medications are taken in combination
Continue IV steroids, started 01/18- Decreased to q8hr. 01/21/2024-continue without change.
Once there is clinical improvement transition to prednisone 40 mg with a very slow taper going forward
Difficult to differentiate between infectious process but would agree with ceftriaxone/doxycycline-at this point given rapid improvement chest x-ray and lack of infection symptom will complete 5 days of antibiotics.
Will follow radiographically in the next few days.
He has been adequately diuresed and his CXR has continued to improve
Eventual CT chest.
Physical therapy/Occupational Therapy as able
Incentive spirometry
Cardiology following closely. Heart rate has improved.
Failed sotalol, amiodarone stopped for toxicity reasons
on Tikosyn heart rate has improve
Continue diuretics - currently on lasix 40mg IV daily (held today due to slight rise in sCr and serum HCO3 also rising)
Cardiology following closely
Recent cardiac catheterization including right heart catheterization August 2023 reviewed. At that time wedge pressure was normal, RV systolic pressure 43
Pulmonary will continue to follow.
Total time spent today was 52 minutes for this encounter. Time includes reviewing laboratory test/imaging results, reviewing pertinent medical records, obtaining and reviewing medical history, performing an appropriate exam, ordering medications,
tests and procedures. Time also includes documentation of this encounter, coordinating patient care and communicating with other healthcare professionals. Total time does not include separately billed tests performed on this date of service.
Subjective Data
-
Date of Service:
Date of Service: January 23, 2024
Chief Complaint: Pulmonary Follow Up (Hypoxemic respiratory failure)
Subjective:
Patient was seen and evaluated today at bedside. Shortness of breath has improved although he still feels winded during exertional activities. Heart rate 70, BP 107/81 and saturating 96% on 6 L/min nasal cannula. He denies chest pain, ANDREW,
abdominal pain, nausea, fevers or chills.
Review of Systems
General: Other (Negative unless mentioned above)
Objective Data
Data Reviewed
Vital Signs / I&O / Oxygen:
Vital Signs
Temp Pulse Resp BP Pulse Ox
97.7 F 82 16 92/74 95
01/23/24 07:05 01/23/24 09:21 01/23/24 07:05 01/23/24 09:21 01/23/24 07:05
Intake and Output
01/22/24 01/23/24 01/24/24
06:59 06:59 06:59
Intake Total 1310 / 1310 240 / 240
Output Total 2800 / 2800 1300 / 1300
Balance -1490 / -1490 -1060 / -1060
SaO2 95
Nasal Cannula flow liters per 6
minute
Physical Exam
General: Respiratory Distress (negative), Comfortable, Chills (negative) and Sweats (negative)
HEENT: Normocephalic, Anicteric and Moist Mucous Membranes
Cardiovascular: S1-S2 and Peripheral Edema (negative)
Respiratory: Wheeze (negative), Crackles (Right base), Rhonchi (negative) and Non-Labored Respirations
GI: Soft, Non Distended, Non Tender and Normal Bowel Sounds
Neurology: AO x 3 and Tremors (negative)
Skin: Warm, Dry, Cyanosis (negative) and Jaundice (negative)
Labs/Micro/Reports
Lab Data
01/21/24 04:50
01/23/24 05:45
--- NOTE | 2024-01-23 10:23 | W.PN.CARDCBS ---
Addendum entered and electronically signed by Shauna Zapien PA-C 01/23/24 14:01:
pro-BNP was 2480 and now down to 933. Will change Lasix to 40 mg PO daily.
Original Note:
Today's Communication / Plan
-
proBNP pending
Hold Lasix for now and reassess
Physical therapy
Impression / Plan
-
PCP: Brant Kruse MD
Primary Show Worker: Dr. Tomi Ring
Primary Senior Compensation Consultant: Dr. Holly Dixon at [place]
Impression:
Presentation with SOB, hypoxia 01/18/24
Left PNA
Elevated troponin peak 2.2 non-ID/nonischemic troponin elevation likely secondary to stress from hypoxemia and recent cardiac ablation
2:1 aflutter
Paroxysmal afib/aflutter/atach
s/p PVI 10/08/2019
s/p PVI, posterior wall ablation, mitral annular flutter ablation 11/17/2020
s/p posterior L atrial wall ablation, right atrial tachycardia ablation 06/30/2021
Failed sotalol
Chronic amiodarone therapy from 01/2022 until 09/12/23, stopped due to amio lung toxicity
s/p Medtronic loop recorder 11/15/23
s/p complex ablation of 3 left atrial tachycardias and 2 right atrial tachycardias and SVT 01/16/2024
A-fib recurrence 01/17/2024 status post successful cardioversion in ER
s/p Left Atach and Right Atach ablations 01/16/24
Tikosyn loading 01/19/24
Chronic anticoagulation with Eliquis
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
Bladder cancer s/p L robotic nephroureterectomy 09/20/2022, multiple TURBTs with new bladder tumors s/p resection
New metastatic disease to lung, started PadCev 12/19/23 weekly with Keytruda q 21 days first dose 12/19/23, also prednisone and bactrim m,w,f
h/o nephrolithiasis with stone removal and stent placement
Chronic renal insufficiency
h/o aortic valve replacement 2007
HLD
BPH
Recent fall with chin laceration 12/2023
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
ECHO 09/05/23: EF 60 to 65%, stage III diastolic dysfunction, mild concentric LVH, dilated RV, severely dilated atria, mild to moderate MR, well-seated #23 AVR with peak/mean gradients 10/5 mmHg, moderate TR, PAP 57 mmHg
Echo 01/21/24: EF 59%, mild concentric LVH, stage III diastolic dysfunction, normal RV size and function, well-seated tissue AVR peak/mean 23/11 mmHg without aortic regurgitation, mild to moderate TR with PAP 35 to 40 mmHg
Plan:
-Patient admitted with multifactorial hypoxic respiratory insufficiency and initially required high flow oxygen in ICU. Patient with ILD and possible h/o amio lung toxicity, but then later diagnosed with lung mets from primary urothelial CA and
treatment with Keytruda and Padcev was started with may have increased interstitial pneumonitis. This is complicated by heart failure with preserved ejection fraction in addition and atrial arrhythmias now status post ablation.
-Heart failure with preserved ejection fraction in the setting of history of atrial arrhythmias, underlying lung disease and renal insufficiency. He has been diuresing well and weight is down approximately 19 pounds. Now with some low blood
pressure readings. Hold on diuretics. Reassess proBNP.
-Patient with lower blood pressure readings today. May be euvolemic at this time. Await proBNP. Caution with changing position. Avoid overdiuresis. Consider compression stockings if needed.
-For pulmonary related issues patient being followed by Pulm and Heme/Onc. Decadron wean and antibiotics per primary service and pulmonary.
-Oxygen requirements improved to 6 L NC managed by primary service and pulmonary
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 Stable currently at 1.4.
-Patient with a h/o symptomatic Afib/flutter/tach and last ablation was an Atach ablation 01/16/24. Patient with 2:1 atypical atrial flutter on admission and was loaded with Tikosyn starting 01/19/24 and patient spontaneously converted to SR with
loading. 5th dose of Tikosyn was given 01/21/24 AM. QTc stable at 482 ms on ECG 2 hours after 5th dose of 01/21/24 AM as reviewed by me. Cont Tikosyn 250 mcg q 12 hours and check daily ECGs while admitted. Stable.
-Patient was digoxin loaded this admission, but digoxin now stopped.
-Outpatient dose of Cardizem CD 120 mg BID stopped this admission due to acute HF.
-New to Toprol XL 25 mg BID
-Echo summarized above. EF 59% with stable AVR gradients.
Discussed at length with patient and nursing at bedside. Increase activity as tolerates. Physical therapy. Telemetry stable.
Progress Note - Show Worker
Subjective
Date of Service: January 23, 2024
He denies chest pain and palpitations. He feels very fatigued. Shortness of breath is near baseline
Objective
Labs:
01/21/24 04:50
01/23/24 05:45
Labs
Hgb 11.9 g/dL (13.0-18.0) L 01/21/24 04:50
Hct 33.8 % (39.0-52.0) L 01/21/24 04:50
Plt Count 202 10^3/uL (130-400) D 01/21/24 04:50
PT 15.8 Sec (11.4-14.6) H 01/19/24 13:35
INR 1.27 01/19/24 13:35
Sodium 140 mmol/L (135-145) 01/23/24 05:45
Potassium 4.6 mmol/L (3.5-5.1) 01/23/24 05:45
BUN 65 mg/dl (9-20) H 01/23/24 05:45
Creatinine 1.4 mg/dL (0.7-1.3) H 01/23/24 05:45
Glucose 148 mg/dl (70-99) H 01/23/24 05:45
Vital Signs and I&O:
Vital Signs
Temp Pulse Resp BP Pulse Ox
97.7 F 82 16 92/74 95
01/23/24 07:05 01/23/24 09:21 01/23/24 07:05 01/23/24 09:21 01/23/24 07:05
Vital Signs
Temp Pulse Resp BP Pulse Ox
97.7 F 82 16 92/74 95
01/23/24 07:05 01/23/24 09:21 01/23/24 07:05 01/23/24 09:21 01/23/24 07:05
Intake & Output
01/21/24 01/22/24 01/23/24 01/24/24
06:59 06:59 06:59 06:59
Intake Total 900 / 900 1310 / 1310 240 / 240
Output Total 2000 / 2000 2800 / 2800 1300 / 1300
Balance -1100 / -1100 -1490 / -1490 -1060 / -1060
Physical Exam
Physical Exam
General: Chronically ill man on oxygen
Neck: JVD 8 cm
Heart: Distant heart sounds regular with 3/6 basal systolic murmur
Lungs: Oxygen in place coarse crackles
Extremities: No clubbing, cyanosis or edema bilaterally.
Neuro: Grossly nonfocal, awake, alert and oriented x3.
[2024-01-23 10:55] LABS: NT-proBNP 933 pg/ml
--- NOTE | 2024-01-23 11:08 | W.PN.HOSP.TC ---
Today's Communication/Plan
-
IV steroids
completed abx
lasix held
monitor BP
Pulm recs
wean o2
Assessment / Plan
Assessment / Plan
Gen-AAOx3, NAD
HEENT-NC, AT, anicteric, clear oral mm
Neck-supple
CV-reg, no M, +S1/S2
Lungs-mild bilateral rhonchi, oxygen on 6L
Abd-soft, NT, ND
Ext-no edema
Musculoskeletal-no cyanosis, clubbing
Skin-warm and dry
Neuro-grossly non-focal
Psych-calm, cooperative
#Acute hypoxic respiratory failure - multifactorial etiology including immunotherapy related pneumonitis, interstitial lung disease, pulmonary edema due to CHF, community-acquired pneumonia.
-Oxygen and now on 6 L of mid flow.
Complicated pulmonary history noted. Recent CT chest dated 11/27/2023 showed left upper lobe mass measuring up to 3.2 cm in diameter. Predominantly peripheral and basilar interstitial and ground glass opacities. This is mostly consistent with
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 He is followed by pulmonary as an outpatient. Not on home oxygen but was recently discharged from our hospital 01/16 on 3 L of oxygen.
Started on IV high dose decadron 6 mg every 8 hours
Steroids per pulmonary
#Acute nonischemic myocardial injury- likely 2/2 given fast rates from atrial fibrillation and respiratory failure.
Troponin elevation noted, will trend. Currently denies chest pain.
#Acute heart failure with preserved EF exacerbation
not on diuretics at home. Weight now trending down on IV Lasix.
BNP downtrended. BP soft-lasix held.
Last echocardiogram was 09/05/2023, LVEF 60 to 65%, stage III diastolic dysfunction, severely dilated atria, mild to moderate MR, moderate TR.
#Sepsis due to community-acquired pneumonia -likely multilobar, chest x-ray 01/18 reviewed and shows diffuse infiltrates, somewhat improved in the left lower lobe compared to previous film 01/17.
Continue ceftriaxone, doxycycline. Check sputum. Completed course of antibiotics.
Leukocytosis resolved. Afebrile.
Influenza, COVID-negative. Legionella, pneumococcus antigens negative. MRSA screen negative.
#Atrial fibrillation with rapid ventricular response -converted to sinus rhythm
Rates controlled currently. Continue Tikosyn per cardiology. Qtc stable
Off Cardizem drip. Oral Cardizem dose to be held today given controlled rate.
Metoprolol started and dose increased by cardiology. Continue Eliquis for stroke prophylaxis.
Underwent recent ablation for supraventricular tachycardia on 01/15. Cardioversion on 12/26 for symptomatic atrial fibrillation.
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
Admission creatinine 1.6 on January 17, 1.7 on January 16.
Etiology of JUAN possibly related to cardiorenal syndrome from CHF.
Cr at 1.4. lasix held
History of bladder cancer -treated with left robotic nephroureterectomy September 2022. Known metastatic disease to the lung. On weekly Keytruda and Padcev. Bactrim 3 times a week for PCP prophylaxis, currently on hold.
AVR -2007.
BPH
hyperlipidemia -on simvastatin.
History of nephrolithiasis
Full code
PT/OT-SNF on dc.
Anticipated Discharge: 24 - 48 hours
Subjective/Interval History
-
Date of Service: January 23, 2024
BP soft this morning
remains on 6L
Objective Data
-
Labs:
Laboratory Results
01/23/24
05:45
Sodium 140
Potassium 4.6
Chloride 102
Carbon Dioxide 30
BUN 65 H
Creatinine 1.4 H
Glucose 148 H
Calcium 8.8
Vital Signs:
Vital Signs
Temp Pulse Resp BP Pulse Ox
97.7 F 82 16 92/74 95
01/23/24 07:05 01/23/24 09:21 01/23/24 07:05 01/23/24 09:21 01/23/24 07:05
I&O
01/22/24 01/23/24 01/24/24
06:59 06:59 06:59
Intake Total 1310 / 1310 240 / 240
Output Total 2800 / 2800 1300 / 1300
Balance -1490 / -1490 -1060 / -1060
Data Reviewed
-
Total Time Spent with Patient (in minutes): 55
--- NOTE | 2024-01-23 12:13 | CM ---
Addendum entered by Jasmin Feliciano 01/23/24 14:07:
Met with and Mrs. Trivedi to review discharge plans. Reviewed SNF/Rehab and the role insurance play in SNF and authorization process. Both state they would prefer to go home with [facility] if possible. They have selected [facility] if he can go home.
Original Note:
Reviewed chart. Mr. Trivedi was transferred to IVU. Met with Mr. Trivedi to review discharge plans. He states he is feeling better but it is a slow process. He states prior to admission he resides with his spouse in a three story home with two
steps to enter. He has an elevator to get him to the second floor where his bedroom/full bathroom are located. He states prior to admission he was independent with ambulation and adls. He has home 02 at home. He the concentrator, portable tanks.
He uses home 03 at 3-4 liters. He has a prescription plan with [employer] and uses [facility]. We reviewed SNF/Rehab. Reviewed with him the [facility], [facility], and [facility] do not have a contract with [employer]. Reviewed
list of SNF/Rehab with contract with [employer]. He would like to discuss with his spouse regarding SNF versus home with [facility]. If he goes to SNF/Rehab. he will need SNF Auth. Medical work-up in progress. The discharge plan is to return home
with his spouse and [facility] versus SNF/Rehab. if approved by insurance and bed available.
[2024-01-23] MEDS: LASIX IV (12:33)
--- NOTE | 2024-01-23 22:10 | PTCARENOTE ---
Received patient at change of shift. SR on the monitor HR in the 70s. VSS. 97% on 6L midflow nasal cannula. No complaints from pt at this time, call alexandre within reach.
[2024-01-23] MEDS: LIPITOR 10 MG PO (22:32)
[2024-01-23] MEDS: PROSCAR 5 MG PO (22:32)
[2024-01-24] VITALS (11 sets, daily range): BP systolic 104–126; BP diastolic 73–85; PULSE 73; O2SAT 91–92; BMI 25.8
[2024-01-24 05:42] LABS: Blood Urea Nitrogen 55 mg/dl (9-20); Calcium 8.6 mg/dl (8.4-10.2); Carbon Dioxide 27 mmol/L (22-30); Chloride 102 mmol/L (98-107); Estimated Creatinine Clearance 45 ml/min; Glucose 147 mg/dl (70-99); Sodium 139 mmol/L (135-145)
[2024-01-24] MEDS: DECADRON 6 MG IV ×3 (06:13→22:21)
[2024-01-24] MEDS: TOPROL XL 25 MG PO (09:12)
[2024-01-24] MEDS: ELIQUIS 2.5 MG PO ×2 (09:12→19:58)
[2024-01-24] MEDS: LASIX 40 MG PO (09:13)
[2024-01-24] MEDS: MUCINEX 600 MG PO ×2 (09:13→19:58)
[2024-01-24] MEDS: TIKOSYN 250 MCG PO ×2 (09:13→19:58)
--- NOTE | 2024-01-24 09:40 | W.PN.PUL3 ---
Today's Communication / Plan
-
CXR is improving (referring to last several from through 01/21/2024) - this is encouraging
Completed antibiotics on 01/22/2024
Continue diuresis per cardiology
Continue systemic steroids with slow wean
Monitor electrolytes and creatinine
Continue to wean down oxygen as tolerated, with goal SpO2 >90-94%
Ambulatory pulse oximetry prior to discharge
Incentive spirometer strongly encouraged 10x per hr for at least 4 hrs a day
PT/OT as tolerated
Check CT chest tomorrow AM
Pulmonary service will continue to follow along
Assessment
-
88-year-old male with extremely complex cardiopulmonary history, recurrent atrial fibrillation/flutter with rapid ventricular response status post recent ablation and 01/15, requiring cardioversion 01/16 in the ED, recently diagnosed metastatic
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 We are asked to help from pulmonary standpoint
Impression:
Acute hypoxic respiratory insufficiency now on midflow nasal cannula
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
Acute HFpEF exacerbation with stage III diastolic dysfunction (per TTE from 01/21/24)
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
Atrial fibrillation with rapid ventricular response now in NSR
Metastatic urothelial cell cancer s/p Bx at [facility] (Keytruda/Padvec immunotherapy started in the last month)
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
Renal insufficiency, creatinine 1.4
Conditions present prior to admission
History of atrial fibrillation/atrial flutter
Multiple PVI
Multiple cardioversions
Failed sotalol, off amiodarone since August 2023 (Amio tox)
History of biologic aortic valve replacement 2007
Hypertension/hyperlipidemia
Recently diagnosed metastatic urothelial cell cancer to the lung
Status post bronchoscopy at [facility] October 2024
Plan/recommendations:
Clinically improving since 01/22/2024, both subjectively and objectively
Down to 3L/min from 6 L nasal cannula on midflow
Continue to wean down to his baseline. Maintain pulse ox above 90%.
-
Extremely complex history with care both at [facility] and at [facility]
Notable features are baseline chronic interstitial disease not requiring oxygen therapy as of 6 months ago, with recently initiated Keytruda and Padcev over the past 4 to 6 weeks
He has had no shortness of breath after receiving Keytruda but did feel fatigued afterwards. Of note, he was still weaning his prednisone after receiving Keytruda, hence difficult to assess if worsening dyspnea was due to downtrending OCS dosing vs
Keytruda-induced pneumonitis
Incidence of pulmonary toxicity with Keytruda well-established
Unclear whether combination of these medications may lead to increased interstitial pneumonitis. There is documented worsening neuropathy and fatigue when these medications are taken in combination
Continue IV steroids, started 01/18- Decreased to q8hr. 01/21/2024-continue without change for now
Once there is clinical improvement transition to prednisone 40 mg with a very slow taper going forward
Difficult to differentiate between infectious process but would agree with ceftriaxone/doxycycline-at this point given rapid improvement chest x-ray and lack of infection symptom rec'd to complete 5 days of antibiotics --> ABX stopped on 01/21
He has been adequately diuresed and his CXR has continued to improve
Check CT chest tomorrow morning
Physical therapy/Occupational Therapy as able
Incentive spirometry
Cardiology following closely. Heart rate has improved.
Failed sotalol, amiodarone stopped for toxicity reasons
on Tikosyn heart rate has improve
Continue diuretics - currently on lasix 40mg IV daily (held yesterday as there was slight rise in sCr and serum HCO3 was also rising --> today these #'s have improved)
- He is now on PO lasix 40mg daily
Cardiology following closely
Recent cardiac catheterization including right heart catheterization August 2023 reviewed. At that time wedge pressure was normal, RV systolic pressure 43
Pulmonary will continue to follow.
Total time spent today was 53 minutes for this encounter. Time includes reviewing laboratory test/imaging results, reviewing pertinent medical records, obtaining and reviewing medical history, performing an appropriate exam, ordering medications,
tests and procedures. Time also includes documentation of this encounter, coordinating patient care and communicating with other healthcare professionals. Total time does not include separately billed tests performed on this date of service.
Subjective Data
-
Date of Service:
Date of Service: January 24, 2024
Chief Complaint: Pulmonary Follow Up (Hypoxemic respiratory failure)
Subjective:
Patient seen and evaluated today at bedside. Afebrile overnight. He has been up out of bed but still feels short of breath with activity although he recovers quickly. Has had a mild cough over the last 3-4 days but it is dry. Currently on 3
L/min via midflow nasal cannula saturating 94%, with heart rate 73 and BP 120/83. He denies chest pain, ANDREW, abdominal pain, nausea, fevers or chills.
Review of Systems
General: Other (Negative unless mentioned above)
Objective Data
Data Reviewed
Vital Signs / I&O / Oxygen:
Vital Signs
Temp Pulse Resp BP Pulse Ox
97.3 F 72 18 108/74 95
01/24/24 11:03 01/24/24 09:00 01/24/24 11:03 01/24/24 07:57 01/24/24 11:41
Intake and Output
01/23/24 01/24/24 01/25/24
06:59 06:59 06:59
Intake Total 240 / 240 650 / 650
Output Total 1300 / 1300 1400 / 1400 425 / 425
Balance -1060 / -1060 -750 / -750 -425 / -425
SaO2 95
Nasal Cannula flow liters per 3
minute
Physical Exam
General: Respiratory Distress (negative), Comfortable, Chills (negative) and Sweats (negative)
HEENT: Normocephalic, Anicteric and Moist Mucous Membranes
Cardiovascular: S1-S2, Murmur (+DARIN heard across precordium) and Peripheral Edema (negative)
Respiratory: Wheeze (negative), Crackles ([place] bilaterally, worse in the bases), Rhonchi (negative) and Non-Labored Respirations
GI: Soft, Non Distended, Non Tender and Normal Bowel Sounds
Neurology: AO x 3 and Tremors (negative)
Skin: Warm, Dry, Cyanosis (negative) and Jaundice (negative)
Labs/Micro/Reports
Lab Data
01/21/24 04:50
01/24/24 04:49
--- NOTE | 2024-01-24 09:45 | W.PN.CARDCBS ---
Addendum entered and electronically signed by Rain Ring MD 01/24/24 10:39:
I saw and examined the patient.
The Strip Picker's note was reviewed and I agree with the note.
Comment: He is feeling better today. He is here with heart failure with preserved ejection fraction, underlying lung disease and metastatic urothelial cancer to the lungs. He recently underwent complex atrial ablations. Breathing is stable.
Lungs with dry crackles. No edema. He denies chest pain. Still on 6 L of mid flow oxygen. Weight is stable.
Weight is down 15 to 19 pounds overall. Now on oral Lasix. Continue. proBNP from 2480-933 on 01/22. Continue to follow weight. Likely near euvolemic status.
Will need close heart failure follow-up as an outpatient.
Renal function stable. Follow.
EKG is stable today with sinus rhythm and stable QT interval. Continue dofetilide which was new this admission for atrial arrhythmias given that he recurred with some atrial tachycardia post recent ablations.
Continue oral anticoagulation
Original Note:
Today's Communication / Plan
-
Check ECG to follow QTc, ordered by me
Impression / Plan
-
PCP: Brant Kruse MD
Primary Spray Rig Operator: Dr. Tomi Ring
Primary Vibrator Equipment Tester: Dr. Holly Dixon at [place]
Impression:
Presentation with SOB, hypoxia 01/18/24
Left PNA
Elevated troponin peak 2.2 non-WA/nonischemic troponin elevation likely secondary to stress from hypoxemia and recent cardiac ablation
2:1 aflutter
Paroxysmal afib/aflutter/atach
s/p PVI 10/08/2019
s/p PVI, posterior wall ablation, mitral annular flutter ablation 11/17/2020
s/p posterior L atrial wall ablation, right atrial tachycardia ablation 06/30/2021
Failed sotalol
Chronic amiodarone therapy from 01/2022 until 09/12/23, stopped due to amio lung toxicity
s/p Medtronic loop recorder 11/15/23
s/p complex ablation of 3 left atrial tachycardias and 2 right atrial tachycardias and SVT 01/16/2024
A-fib recurrence 01/17/2024 status post successful cardioversion in ER
s/p Left Atach and Right Atach ablations 01/16/24
Tikosyn loading 01/19/24
Chronic anticoagulation with Eliquis
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
Bladder cancer s/p L robotic nephroureterectomy 09/20/2022, multiple TURBTs with new bladder tumors s/p resection
New metastatic disease to lung, started PadCev 12/19/23 weekly with Keytruda q 21 days first dose 12/19/23, also prednisone and bactrim m,w,f
h/o nephrolithiasis with stone removal and stent placement
Chronic renal insufficiency
h/o aortic valve replacement 2007
HLD
BPH
Recent fall with chin laceration 12/2023
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
ECHO 09/05/23: EF 60 to 65%, stage III diastolic dysfunction, mild concentric LVH, dilated RV, severely dilated atria, mild to moderate MR, well-seated #23 AVR with peak/mean gradients 10/5 mmHg, moderate TR, PAP 57 mmHg
Echo 01/21/24: EF 59%, mild concentric LVH, stage III diastolic dysfunction, normal RV size and function, well-seated tissue AVR peak/mean 23/11 mmHg without aortic regurgitation, mild to moderate TR with PAP 35 to 40 mmHg
Plan:
-Weight is down 19 lbs with Lasix IV diuresis this admission. pro-BNP was 2480 on admission and then down to 933 on 01/23/24. Lasix changed to 40 mg PO daily on 01/24/24.
-Cre stable at 1.3 to 1.4. JUAN with Cre as high as 1.7 this admission.
-Patient admitted with multifactorial hypoxic respiratory insufficiency and initially required high flow oxygen in ICU. Patient with ILD and possible h/o amio lung toxicity, but then later diagnosed with lung mets from primary urothelial CA and
treatment with Keytruda and Padcev was started with may have increased interstitial pneumonitis. This is complicated by heart failure with preserved ejection fraction in addition and atrial arrhythmias now status post ablation.
-Patient being followed by Pulm and Heme/Onc. Decadron weaned to 6 mg IV q 8 hours. Also completed 5 days of ceftriaxone and doxycycline.
-Oxygen requirements are 6 L midflow on 01/24/24
-Patient with a h/o symptomatic Afib/flutter/tach and last ablation was an Atach ablation 01/16/24. Patient with 2:1 atypical atrial flutter on admission and was loaded with Tikosyn starting 01/19/24 and patient spontaneously converted to SR with
loading. 5th dose of Tikosyn was given 01/21/24 AM and QTc stable at 482 ms on ECG 2 hours later. Cont Tikosyn 250 mcg q 12 hours. Check ECG 01/24/24 to follow QTc, ordered by me.
-Patient was digoxin loaded this admission, but digoxin now stopped.
-Outpatient dose of Cardizem CD 120 mg BID stopped this admission due to acute HF.
-New to Toprol XL 25 mg daily this admission
-Echo summarized above. EF 59% with stable AVR gradients.
Progress Note - Spray Rig Operator
Subjective
Date of Service: January 24, 2024
Feels well, no palpitations
Objective
Labs:
01/21/24 04:50
01/24/24 04:49
Labs
Hgb 11.9 g/dL (13.0-18.0) L 01/21/24 04:50
Hct 33.8 % (39.0-52.0) L 01/21/24 04:50
Plt Count 202 10^3/uL (130-400) D 01/21/24 04:50
PT 15.8 Sec (11.4-14.6) H 01/19/24 13:35
INR 1.27 01/19/24 13:35
Sodium 139 mmol/L (135-145) 01/24/24 04:49
Potassium 5.0 mmol/L (3.5-5.1) 01/24/24 04:49
BUN 55 mg/dl (9-20) H 01/24/24 04:49
Creatinine 1.3 mg/dL (0.7-1.3) 01/24/24 04:49
Glucose 147 mg/dl (70-99) H 01/24/24 04:49
Vital Signs and I&O:
Vital Signs
Temp Pulse Resp BP Pulse Ox
98.8 F 72 20 108/74 94
01/24/24 07:55 01/24/24 09:00 01/24/24 07:55 01/24/24 07:57 01/24/24 09:18
Vital Signs
Temp Pulse Resp BP Pulse Ox
98.8 F 72 20 108/74 94
01/24/24 07:55 01/24/24 09:00 01/24/24 07:55 01/24/24 07:57 01/24/24 09:18
Intake & Output
01/22/24 01/23/24 01/24/24 01/25/24
06:59 06:59 06:59 06:59
Intake Total 1310 / 1310 240 / 240 650 / 650
Output Total 2800 / 2800 1300 / 1300 1400 / 1400
Balance -1490 / -1490 -1060 / -1060 -750 / -750
Physical Exam
Physical Exam
GEN: AAO x3
HEENT: MMM
LUNGS: Wearing oxygen at 6 L mid flow. No audible wheeze
CV: SR on tele
ABD: ND
EXT: No edema B/L LE
NEURO: Gross non-focal
SKIN: No rash
--- NOTE | 2024-01-24 12:06 | PTCARENOTE ---
Oxygen weaned to 3L via nasal cannula which pt states he uses at home.
--- NOTE | 2024-01-24 12:51 | CM ---
Reviewed chart. Met with and Mrs. Trivedi to review discharge plans. He states he is feeling much better and he is down to 3 liter of 02. We reviewed [facility] with [facility]. He is agreeable to VNA Services. Telephone call to
[facility] to make the referral. Sent the referral. Prior to admission Mr. Trivedi resides with his spouse in a three story home with two steps to enter. He has an elevator to get to the second floor where his bedroom/full bathroom
are located. Prior to admission he was independent with ambulation and adls. He uses home 02 at 3-4 liters at home. He has the concentrator and portable 02 tanks. He has a prescription plan and uses [facility]. Medical work-up in progress.
The discharge plan is to return home with his spouse and [facility] when medically stable.
--- NOTE | 2024-01-24 13:04 | W.PN.HOSP.TC ---
Today's Communication/Plan
-
remains on high dose steroids
trend cr
CT chest ordered for tomm
O2 sats improving
Steroids per pulmonary
Assessment / Plan
Assessment / Plan
Gen-AAOx3, NAD
HEENT-NC, AT, anicteric, clear oral mm
Neck-supple
CV-reg, no M, +S1/S2
Lungs-mild bilateral rhonchi, oxygen on 6L
Abd-soft, NT, ND
Ext-no edema
Musculoskeletal-no cyanosis, clubbing
Skin-warm and dry
Neuro-grossly non-focal
Psych-calm, cooperative
#Acute hypoxic respiratory failure - multifactorial etiology including immunotherapy related pneumonitis, interstitial lung disease, pulmonary edema due to CHF, community-acquired pneumonia.
Oxygen midflow from 6 L to 3L now.
Complicated pulmonary history noted. Recent CT chest dated 11/27/2023 showed left upper lobe mass measuring up to 3.2 cm in diameter. Predominantly peripheral and basilar interstitial and ground glass opacities. This is mostly consistent with
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 He is followed by pulmonary as an outpatient. Not on home oxygen but was recently discharged from our hospital 01/16 on 3 L of oxygen.
Started on IV high dose decadron 6 mg every 8 hours
Steroids per pulmonary
#Acute nonischemic myocardial injury- likely 2/2 given fast rates from atrial fibrillation and respiratory failure.
Troponin elevation noted, will trend. Currently denies chest pain.
#Acute heart failure with preserved EF exacerbation
not on diuretics at home. Weight now downtrended.
BNP downtrended.
Last echocardiogram was 09/05/2023, LVEF 60 to 65%, stage III diastolic dysfunction, severely dilated atria, mild to moderate MR, moderate TR.
Now on 40mg po lasix daily
#Sepsis due to community-acquired pneumonia -likely multilobar, chest x-ray 01/18 reviewed and shows diffuse infiltrates, somewhat improved in the left lower lobe compared to previous film 01/17.
Continue ceftriaxone, doxycycline. Check sputum. Completed course of antibiotics.
Leukocytosis resolved. Afebrile.
Influenza, COVID-negative. Legionella, pneumococcus antigens negative. MRSA screen negative.
#Atrial fibrillation with rapid ventricular response -converted to sinus rhythm
Rates controlled currently. Continue Tikosyn per cardiology. Qtc stable
Off Cardizem drip. Oral Cardizem dose to be held today given controlled rate.
Metoprolol started and dose increased by cardiology. Continue Eliquis for stroke prophylaxis.
Underwent recent ablation for supraventricular tachycardia on 01/15. Cardioversion on 12/26 for symptomatic atrial fibrillation.
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
Admission creatinine 1.6 on January 17, 1.7 on January 16.
Etiology of JUAN possibly related to cardiorenal syndrome from CHF.
Cr around 1.3-1.4. lasix held
History of bladder cancer -treated with left robotic nephroureterectomy September 2022. Known metastatic disease to the lung. On weekly Keytruda and Padcev. Bactrim 3 times a week for PCP prophylaxis, currently on hold.
AVR -2007.
BPH
hyperlipidemia -on simvastatin.
History of nephrolithiasis
Full code
PT/OT-refusing SNF. wants to go home VNA
d/w with pulmonary
Anticipated Discharge: > 48 hours
Subjective/Interval History
-
Date of Service: January 24, 2024
states feeling better and breathing is improving slowly
Objective Data
-
Labs:
Laboratory Results
01/24/24
04:49
Sodium 139
Potassium 5.0
Chloride 102
Carbon Dioxide 27
BUN 55 H
Creatinine 1.3
Glucose 147 H
Calcium 8.6
Vital Signs:
Vital Signs
Temp Pulse Resp BP Pulse Ox
97.3 F 77 18 122/83 95
01/24/24 11:03 01/24/24 12:00 01/24/24 11:03 01/24/24 11:01 01/24/24 11:41
I&O
01/23/24 01/24/24 01/25/24
06:59 06:59 06:59
Intake Total 240 / 240 650 / 650
Output Total 1300 / 1300 1400 / 1400 425 / 425
Balance -1060 / -1060 -750 / -750 -425 / -425
Data Reviewed
-
Total Time Spent with Patient (in minutes): 52
--- NOTE | 2024-01-24 18:55 | PTCARENOTE ---
Pt eager and able to walk in halls @60 feet wearing 3L oxygen, saturation down to 85% on 3L immediately after walking which resolved within 2 minutes. Pt with recent fall, he is calling appropriately for assistance. Telemetry shows sinus rhythm.
--- NOTE | 2024-01-24 21:20 | PTCARENOTE ---
Received patient at change of shift. SR on the monitor, HR in the 70s. VSS. 95% on 3L. No complaints from patient at this time, call alexandre within reach.
[2024-01-24] MEDS: PROSCAR 5 MG PO (22:21)
[2024-01-24] MEDS: LIPITOR 10 MG PO (22:21)
[2024-01-25] VITALS (7 sets, daily range): BP systolic 107–124; BP diastolic 71–87; PULSE 73; O2SAT 92; BMI 25.4
[2024-01-25 04:28] LABS: Blood Urea Nitrogen 63 mg/dl (9-20); Calcium 8.7 mg/dl (8.4-10.2); Carbon Dioxide 30 mmol/L (22-30); Chloride 99 mmol/L (98-107); Estimated Creatinine Clearance 42 ml/min; Glucose 153 mg/dl (70-99); Sodium 137 mmol/L (135-145); eGFR 48.95
[2024-01-25] MEDS: DECADRON 6 MG IV ×3 (05:39→21:32)
[2024-01-25] MEDS: ELIQUIS 2.5 MG PO (09:02)
[2024-01-25] MEDS: TIKOSYN 250 MCG PO ×2 (09:02→19:58)
[2024-01-25] MEDS: MUCINEX 600 MG PO ×2 (09:03→19:58)
[2024-01-25] MEDS: TOPROL XL 25 MG PO (09:03)
--- NOTE | 2024-01-25 09:30 | W.PN.ONC2 ---
Today's Communication / Plan
-
Steroid taper per pulmonary
anticipate no further keytruda immunotherapy, only padcev chemo
outpatient f/u with Dr. Rubalcava
Impression
Impression
Stage IV urothelial carcinoma
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
Atrial fibrillation
Aortic valve replacement
Chronic renal insufficiency
Hyperlipidemia
BPH
Subjective/Objective
Subjective
No new complaints
breathing continues to improve
Vital Signs:
Vital Signs
Temp Pulse Resp BP Pulse Ox
97.9 F 69 20 115/87 94
01/25/24 07:09 01/25/24 07:11 01/25/24 07:09 01/25/24 07:11 01/25/24 09:08
Lab Results:
Laboratory Data
WBC 16.4 10^3/uL (4.8-10.8) H 01/21/24 04:50
Hgb 11.9 g/dL (13.0-18.0) L 01/21/24 04:50
Plt Count 202 10^3/uL (130-400) D 01/21/24 04:50
PT 15.8 Sec (11.4-14.6) H 01/19/24 13:35
INR 1.27 01/19/24 13:35
eGFR 48.95 01/25/24 03:43
Physical Exam
HEENT: No Jaundice
Cardiology: S1 and S2
Pulmonary: Rhonchi
GI: Soft
Extremities: No Edema
Neuro: Non Focal
--- NOTE | 2024-01-25 09:33 | W.PN.PUL3 ---
Today's Communication / Plan
-
CXR is improving (referring to last several from through 01/21/2024) - this is encouraging
CT chest this AM shows persistent GGO, but improved compared to CXR on 01/18/2024
Completed antibiotics on 01/22/2024
Continue diuresis per cardiology
Continue systemic steroids with slow wean --> once ready for discharge, send home on 60mg daily and reduce by 10mg every 7th day until back to 20mg daily
Monitor electrolytes and creatinine
Continue to wean down oxygen as tolerated, with goal SpO2 >90-94%
Ambulatory pulse oximetry prior to discharge
Incentive spirometer strongly encouraged 10x per hr for at least 4 hrs a day
PT/OT as tolerated
Defer additional Keytruda to oncology
Disposition efforts per primary team to as long as he continues to clinically improve, I feel that he will be ready for discharge within the next 24-48 hours
Pulmonary service will continue to follow along while hospitalized and will arrange for follow-up once discharged. He also will follow-up with pulmonology at [facility].
Assessment
-
88-year-old male with extremely complex cardiopulmonary history, recurrent atrial fibrillation/flutter with rapid ventricular response status post recent ablation and 01/15, requiring cardioversion 01/16 in the ED, recently diagnosed metastatic
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 We are asked to help from pulmonary standpoint
Impression:
Acute hypoxic respiratory insufficiency now on midflow nasal cannula
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
Acute HFpEF exacerbation with stage III diastolic dysfunction (per TTE from 01/21/24)
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
Atrial fibrillation with rapid ventricular response now in NSR
Metastatic urothelial cell cancer s/p Bx at [facility] (Keytruda/Padvec immunotherapy started in the last month)
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
Renal insufficiency, creatinine 1.4
Conditions present prior to admission
History of atrial fibrillation/atrial flutter
Multiple PVI
Multiple cardioversions
Failed sotalol, off amiodarone since August 2023 (Amio tox)
History of biologic aortic valve replacement 2007
Hypertension/hyperlipidemia
Recently diagnosed metastatic urothelial cell cancer to the lung
Status post bronchoscopy at [facility] October 2024
Plan/recommendations:
Clinically improving since 01/22/2024, both subjectively and objectively
Down to 3L/min from 6 L nasal cannula on midflow
Continue to wean down to his baseline. Maintain pulse ox above 90%.
-
Extremely complex history with care both at [facility] and at [facility]
Notable features are baseline chronic interstitial disease not requiring oxygen therapy as of 6 months ago, with recently initiated Keytruda and Padcev over the past 4 to 6 weeks
He has had no shortness of breath after receiving Keytruda but did feel fatigued afterwards. Of note, he was still weaning his prednisone after receiving Keytruda, hence difficult to assess if worsening dyspnea was due to downtrending OCS dosing vs
Keytruda-induced pneumonitis
Incidence of pulmonary toxicity with Keytruda well-established
Unclear whether combination of these medications may lead to increased interstitial pneumonitis. There is documented worsening neuropathy and fatigue when these medications are taken in combination
Continue IV steroids, started 01/18- Decreased to q8hr. 01/21/2024-I will wean down tomorrow (01/25) to 6mg IV q12hr
Once there is clinical improvement transition to prednisone 60 mg daily with a very slow taper going forward, reducing by 10mg every 7th day until back to baseline 20mg daily
Difficult to differentiate between infectious process but would agree with ceftriaxone/doxycycline-at this point given rapid improvement chest x-ray and lack of infection symptom rec'd to complete 5 days of antibiotics --> ABX stopped on 01/21
He has been adequately diuresed and his CXR has continued to improve
CT chest shows persistent bilateral groundglass opacities, similar to prior CT chest from 11/27/2023, but improved compared to CXR on 01/18/2024. He has a persistent rounded focus in the lingula similar in size to prior CT and now with air
bronchograms. No significant pleural effusions. He will need to have continued outpatient radiographic follow-up to monitor persistence versus worsening/improvement of these interstitial changes.
Physical therapy/Occupational Therapy as able
Incentive spirometry
Cardiology following closely. Heart rate has improved.
Failed sotalol, amiodarone stopped for toxicity reasons
on Tikosyn heart rate has improve
Continue diuretics - currently on lasix 40mg PO daily
Cardiology following closely
Recent cardiac catheterization including right heart catheterization August 2023 reviewed. At that time wedge pressure was normal, RV systolic pressure 43
Pulmonary will continue to follow.
Total time spent today was 54 minutes for this encounter. Time includes reviewing laboratory test/imaging results, reviewing pertinent medical records, obtaining and reviewing medical history, performing an appropriate exam, ordering medications,
tests and procedures. Time also includes documentation of this encounter, coordinating patient care and communicating with other healthcare professionals. Total time does not include separately billed tests performed on this date of service.
Subjective Data
-
Date of Service:
Date of Service: January 25, 2024
Chief Complaint: Pulmonary Follow Up (Hypoxemic respiratory failure)
Subjective:
Patient was seen and evaluated today at bedside. He was sleeping soundly and awoke once I walked in and was in no acute distress. Heart rate 69, BP 119/86 and saturating 94% on 3 L/min nasal cannula. Denies cough, denies worsening SOB, able to
ambulate with minimal SOB although he did get very tired after working with PT this morning. Denies ANDREW, chest pain, nausea, diarrhea, abdominal pain, fevers or chills. Afebrile overnight.
Review of Systems
General: Other (Negative unless mentioned above)
Objective Data
Data Reviewed
Vital Signs / I&O / Oxygen:
Vital Signs
Temp Pulse Resp BP Pulse Ox
98.3 F 69 20 115/87 94
01/25/24 11:21 01/25/24 07:11 01/25/24 11:21 01/25/24 07:11 01/25/24 11:21
Intake and Output
01/24/24 01/25/24 01/26/24
06:59 06:59 06:59
Intake Total 650 / 650
Output Total 1400 / 1400 2325 / 2325
Balance -750 / -750 -2325 / -2325
SaO2 94
Nasal Cannula flow liters per 3
minute
Physical Exam
General: Respiratory Distress (negative), Comfortable, Chills (negative) and Sweats (negative)
HEENT: Normocephalic, Anicteric and Moist Mucous Membranes
Cardiovascular: S1-S2, Murmur (+DARIN heard across precordium) and Peripheral Edema (negative)
Respiratory: Wheeze (negative), Crackles ([place] bilaterally, worse in the bases), Rhonchi (negative) and Non-Labored Respirations
GI: Soft, Non Distended, Non Tender and Normal Bowel Sounds
Neurology: AO x 3 and Tremors (negative)
Skin: Warm, Dry, Cyanosis (negative) and Jaundice (negative)
Labs/Micro/Reports
Lab Data
01/21/24 04:50
01/25/24 03:43
--- NOTE | 2024-01-25 09:57 | W.PN.CARDCBS ---
Addendum entered and electronically signed by Emil Leija MD 01/25/24 11:32:
I saw and examined the patient.
The Snuff Container Inspector's note was reviewed and I agree with the note.
Comment:
GEN: No distress, awake, Ox3
HEENT: supple, anicteric, mmm
LUNGS: scatt rhonchi
CV: Reg, S1/S2, 1/6 syst LSB, no gallop
ABD: soft, BS+, NT/ND
EXT: No edema
NEURO: Gross non-focal
SKIN: No rash
Plan:
Remains in sinus. Cont Tikosyn 250mcg q12/Toprol
Cont Lasix 40mg daily
With Creat below 1.5. Increase Eliquis to 5mg po bid
Wean oxygen.
OK for D/C from cardiology standpoint.
Original Note:
Today's Communication / Plan
-
Continue Tikosyn, Toprol
Continue oral Lasix 40 mg
Increase Eliquis 5 mg BID
Continue to wean oxygen as tolerated
Outpatient follow up has been arranged
Impression / Plan
-
PCP: Brant Kruse MD
Primary Foreign Student Adviser: Dr. Tomi Ring
Primary Recruiting Intern: Dr. Holly Dixon at [facility]
Impression:
Presentation with SOB, hypoxia 01/18/24
Left PNA
Elevated troponin peak 2.2 non-AK/nonischemic troponin elevation likely secondary to stress from hypoxemia and recent cardiac ablation
2:1 aflutter
Paroxysmal afib/aflutter/atach
s/p PVI 10/08/2019
s/p PVI, posterior wall ablation, mitral annular flutter ablation 11/17/2020
s/p posterior L atrial wall ablation, right atrial tachycardia ablation 06/30/2021
Failed sotalol
Chronic amiodarone therapy from 01/2022 until 09/12/23, stopped due to amio lung toxicity
s/p [employer] loop recorder 11/15/23
s/p complex ablation of 3 left atrial tachycardias and 2 right atrial tachycardias and SVT 01/16/2024
A-fib recurrence 01/17/2024 status post successful cardioversion in ER
s/p Left Atach and Right Atach ablations 01/16/24
Tikosyn loading 01/19/24
Chronic anticoagulation with Eliquis
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
Bladder cancer s/p L robotic nephroureterectomy 09/20/2022, multiple TURBTs with new bladder tumors s/p resection
New metastatic disease to lung, started PadCev 12/19/23 weekly with Keytruda q 21 days first dose 12/19/23, also prednisone and bactrim m,w,f
h/o nephrolithiasis with stone removal and stent placement
Chronic renal insufficiency
h/o aortic valve replacement 2007
HLD
BPH
Recent fall with chin laceration 12/2023
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
ECHO 09/05/23: EF 60 to 65%, stage III diastolic dysfunction, mild concentric LVH, dilated RV, severely dilated atria, mild to moderate MR, well-seated #23 AVR with peak/mean gradients 10/5 mmHg, moderate TR, PAP 57 mmHg
Echo 01/21/24: EF 59%, mild concentric LVH, stage III diastolic dysfunction, normal RV size and function, well-seated tissue AVR peak/mean 23/11 mmHg without aortic regurgitation, mild to moderate TR with PAP 35 to 40 mmHg
Plan:
-Weight is down 23 lbs with Lasix IV diuresis this admission. pro-BNP was 2480 on admission and then down to 933 on 01/23/24. Lasix changed to 40 mg PO daily on 01/24/24.
-Appears euvolemic on examination.
-Cre stable at baseline of 1.3-1.4. JUAN with Cre as high as 1.7 this admission.
-Patient admitted with multifactorial hypoxic respiratory insufficiency and initially required high flow oxygen in ICU. Patient with ILD and possible h/o amio lung toxicity, but then later diagnosed with lung mets from primary urothelial CA and
treatment with Keytruda and Padcev was started with may have increased interstitial pneumonitis. This is complicated by heart failure with preserved ejection fraction in addition and atrial arrhythmias now status post ablation.
-Patient being followed by Pulm and Heme/Onc. Decadron weaned to 6 mg IV q 8 hours. Also completed 5 days of ceftriaxone and doxycycline. Repeat CT chest pending
-Improving Oxygen requirements now down to 3 L nasal canula on 01/25/24
-Patient with a h/o symptomatic Afib/flutter/tach and last ablation was an Atach ablation 01/16/24. Patient with 2:1 atypical atrial flutter on admission and was loaded with Tikosyn 250 mcg BID starting 01/19/24 and patient spontaneously converted to
SR with loading. 5th dose of Tikosyn was given 01/21/24 AM and QTc stable at 482 ms on ECG 2 hours later. Cont Tikosyn 250 mcg q 12 hours. Stable QTc 473 ms on ECG 01/24/24
-Since creat has improved with new baseline 1.3-1.4 over the last 7 days.Needs higher dose Eliquis. Increase to 5 mg BID
-Patient was digoxin loaded this admission, but digoxin now stopped.
-Outpatient dose of Cardizem CD 120 mg BID stopped this admission due to acute HF.
-New to Toprol XL 25 mg daily this admission
-Echo summarized above. EF 59% with stable AVR gradients.
-Likely would benefit from SNF but pt refusing. Agrees to go home with VN
Progress Note - Foreign Student Adviser
Subjective
Date of Service: January 25, 2024
Patient seen and examined. Resting comfortably in chair. Patient reports he was able to take a walk and ambulate around the unit earlier today. He did feel winded at the end of his walk but has recovered at rest. He denies chest pain or
palpitations.
Objective
Labs:
01/21/24 04:50
01/25/24 03:43
Labs
Hgb 11.9 g/dL (13.0-18.0) L 01/21/24 04:50
Hct 33.8 % (39.0-52.0) L 01/21/24 04:50
Plt Count 202 10^3/uL (130-400) D 01/21/24 04:50
PT 15.8 Sec (11.4-14.6) H 01/19/24 13:35
INR 1.27 01/19/24 13:35
Sodium 137 mmol/L (135-145) 01/25/24 03:43
Potassium 5.0 mmol/L (3.5-5.1) 01/25/24 03:43
BUN 63 mg/dl (9-20) H 01/25/24 03:43
Creatinine 1.4 mg/dL (0.7-1.3) H 01/25/24 03:43
Glucose 153 mg/dl (70-99) H 01/25/24 03:43
Vital Signs and I&O:
Vital Signs
Temp Pulse Resp BP Pulse Ox
97.9 F 69 20 115/87 94
01/25/24 07:09 01/25/24 07:11 01/25/24 07:09 01/25/24 07:11 01/25/24 09:08
Vital Signs
Temp Pulse Resp BP Pulse Ox
97.9 F 69 20 115/87 94
01/25/24 07:09 01/25/24 07:11 01/25/24 07:09 01/25/24 07:11 01/25/24 09:08
Intake & Output
01/23/24 01/24/24 01/25/24 01/26/24
06:59 06:59 06:59 06:59
Intake Total 240 / 240 650 / 650
Output Total 1300 / 1300 1400 / 1400 2325 / 2325
Balance -1060 / -1060 -750 / -750 -2325 / -2325
Physical Exam
Physical Exam
GEN: No distress, awake, Ox3, sitting in chair wearing oxygen
HEENT: supple, anicteric, mmm
LUNGS: Dry crackles bilaterally CTA, no wheezes/rales
CV: Reg, S1/S2, no murmur, rub or gallop
ABD: soft, BS+, NT/ND
EXT: No edema, clubbing or cyanosis
NEURO: Gross non-focal
SKIN: No rash, warm, dry, pink
--- NOTE | 2024-01-25 11:56 | W.PN.HOSP.TC ---
Today's Communication/Plan
-
Await pulm recs.
Steroids per pulm
start dispo efforts
Assessment / Plan
Assessment / Plan
Gen-AAOx3, NAD
HEENT-NC, AT, anicteric, clear oral mm
Neck-supple
CV-reg, no M, +S1/S2
Lungs-mild bilateral rhonchi, oxygen on 3L
Abd-soft, NT, ND
Ext-no edema
Musculoskeletal-no cyanosis, clubbing
Skin-warm and dry
Neuro-grossly non-focal
Psych-calm, cooperative
#Acute hypoxic respiratory failure - multifactorial etiology including immunotherapy related pneumonitis, interstitial lung disease, pulmonary edema due to CHF, community-acquired pneumonia.
Oxygen midflow from 6 L to 3L now.
Complicated pulmonary history noted. CT Chest on 01/25/24 suggesting scattered foci of acute pneumonitis superimposed on chronic changes of interstitial lung disease. No significant pleural effusions are identified. These CT findings are not
considered highly suggestive of a superimposed component of pulmonary edema.The visualization of air bronchograms suggested this is most likely a focal area of atelectasis and/or scarring rather than neoplasia, but continued follow-up is advised.
Not on home oxygen but was recently discharged from our hospital 01/16 on 3 L of oxygen.
Started on IV high dose decadron 6 mg every 8 hours-taper regimen per pulmonary
Steroids per pulmonary
#Acute nonischemic myocardial injury- likely 2/2 given fast rates from atrial fibrillation and respiratory failure.
Troponin elevation noted, will trend. Currently denies chest pain.
#Acute heart failure with preserved EF exacerbation
not on diuretics at home. Weight now downtrended.
BNP downtrended.
Last echocardiogram was 09/05/2023, LVEF 60 to 65%, stage III diastolic dysfunction, severely dilated atria, mild to moderate MR, moderate TR.
Now on 40mg po lasix daily
#Sepsis due to community-acquired pneumonia -likely multilobar, chest x-ray 01/18 reviewed and shows diffuse infiltrates, somewhat improved in the left lower lobe compared to previous film 01/17.
Continue ceftriaxone, doxycycline. e Completed course of antibiotics.
Leukocytosis resolved. Afebrile.
Influenza, COVID-negative. Legionella, pneumococcus antigens negative. MRSA screen negative.
#Atrial fibrillation with rapid ventricular response -converted to sinus rhythm
Rates controlled currently. Continue Tikosyn per cardiology. Qtc stable
Off Cardizem drip. Oral Cardizem dose to be held today given controlled rate.
Metoprolol started and dose increased by cardiology. Continue Eliquis for stroke prophylaxis.
Underwent recent ablation for supraventricular tachycardia on 01/15. Cardioversion on 12/26 for symptomatic atrial fibrillation.
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
Admission creatinine 1.6 on January 17, 1.7 on January 16.
Etiology of JUAN possibly related to cardiorenal syndrome from CHF.
Cr around 1.3-1.4.
History of bladder cancer -treated with left robotic nephroureterectomy September 2022. Known metastatic disease to the lung. On weekly Keytruda and Padcev. Bactrim 3 times a week for PCP prophylaxis, currently on hold.
AVR -2007.
BPH
hyperlipidemia -on simvastatin.
History of nephrolithiasis
Full code
PT/OT-refusing SNF. wants to go home VNA
Await pulm recs.
Anticipated Discharge: Within 24 hours
Subjective/Interval History
-
Date of Service: January 25, 2024
states breathing has improved significantly
remains on 3L
Walking around with assistance
Objective Data
-
Labs:
Laboratory Results
01/25/24
03:43
Sodium 137
Potassium 5.0
Chloride 99
Carbon Dioxide 30
BUN 63 H
Creatinine 1.4 H
Glucose 153 H
Calcium 8.7
Vital Signs:
Vital Signs
Temp Pulse Resp BP Pulse Ox
98.3 F 69 20 115/87 94
01/25/24 11:21 01/25/24 07:11 01/25/24 11:21 01/25/24 07:11 01/25/24 11:21
I&O
01/24/24 01/25/24 01/26/24
06:59 06:59 06:59
Intake Total 650 / 650
Output Total 1400 / 1400 2325 / 2325
Balance -750 / -750 -2325 / -2325
Data Reviewed
-
Total Time Spent with Patient (in minutes): 52
--- NOTE | 2024-01-25 13:06 | CM ---
Reviewed chart. Met with Mr. Trivedi to review discharge plans. He states he is feeling better. Telephone call to [employer] to check on coverage for Dofetilide 250 mcg bid. His co-pay would be $54.00 for ninety day supply or $18.30 a month.
Reviewed co-pay with him and he is agreeable to the co-pay. Telephone call to [facility] to check if they have Dofetilide 250 in stock. [facility] has it in stock. Sent the three day script down to [facility] for the three day supply
of Dofetilide to go home with him. We also reviewed VNA services and he is still agreeable to [facility] Services. Prior to admission he resides with his spouse in a three story home with two steps to enter. He has an elevator to get to the second floor.
Prior to admission he was independent with ambulation and adls. He has home 02 at home. He has a concentrator, portable 02 . He uses 3-4 liters at home. Medical work-up in progress. The discharge plan is to return home with his spouse and
[facility] when medically stable.
[2024-01-25] MEDS: LASIX 40 MG PO (14:47)
--- NOTE | 2024-01-25 19:50 | PTCARENOTE ---
Pt very motivated to walk in halls. Pt walked @200 feet with RN using his walker on 3L oxygen. At rest pt 94%on 3L , 85% on 3L after walking and then he recovered within 2 minutes. Pt increasing his endurance. Pt vomited once for unknown reasons
prior to eating all his dinner. Telemetry shows sinus rhythm.
[2024-01-25] MEDS: ELIQUIS 5 MG PO (19:58)
[2024-01-25] MEDS: PROSCAR 5 MG PO (21:33)
[2024-01-25] MEDS: FLUSH (NSS) 2 FLUSH IV (21:33)
[2024-01-25] MEDS: LIPITOR 10 MG PO (21:33)
[2024-01-25] MEDS: MAALOX 30 ML PO (23:19)
[2024-01-26 03:50] VITALS: BP 103/75
--- NOTE | 2024-01-26 04:26 | PTCARENOTE ---
Pt. maintained on 3L O2 this shift with pulse ox ranging 92-96%, bibasilar crackles present, mild ACUÑA. NSR on the monitor. Complained of indigestion, Maalox given with complete resolution of symptoms. Voiding clear yellow urine without difficulty.
[2024-01-26 05:00] LABS: Blood Urea Nitrogen 71 mg/dl (9-20); Calcium 8.7 mg/dl (8.4-10.2); Carbon Dioxide 29 mmol/L (22-30); Chloride 98 mmol/L (98-107); Estimated Creatinine Clearance 42 ml/min; Glucose 157 mg/dl (70-99); Potassium 4.8 mmol/L (3.5-5.1); Sodium 136 mmol/L (135-145); eGFR 48.95
[2024-01-26 05:06] LABS: NT-proBNP 788 pg/ml
[2024-01-26 05:30] LABS: Erythrocyte Sed Rate 15 mm/hour (0-20)
[2024-01-26 08:11] VITALS: BP 120/80
[2024-01-26 08:30] VITALS: BMI 25.3
--- NOTE | 2024-01-26 08:46 | W.PN.CARDCBS ---
Today's Communication / Plan
-
reduce Lasix to 20 mg daily
Impression / Plan
-
PCP: Brant Kruse MD
Primary Contract Mail Carrier: Dr. Tomi Ring
Primary Interior Design Faculty Member: Dr. Holly Dixon at [facility]
Impression:
Presentation with SOB, hypoxia 01/18/24
Left PNA
Elevated troponin peak 2.2 non-UT/nonischemic troponin elevation likely secondary to stress from hypoxemia and recent cardiac ablation
2:1 aflutter
Paroxysmal afib/aflutter/atach
s/p PVI 10/08/2019
s/p PVI, posterior wall ablation, mitral annular flutter ablation 11/17/2020
s/p posterior L atrial wall ablation, right atrial tachycardia ablation 06/30/2021
Failed sotalol
Chronic amiodarone therapy from 01/2022 until 09/12/23, stopped due to amio lung toxicity
s/p [employer] loop recorder 11/15/23
s/p complex ablation of 3 left atrial tachycardias and 2 right atrial tachycardias and SVT 01/16/2024
A-fib recurrence 01/17/2024 status post successful cardioversion in ER
s/p Left Atach and Right Atach ablations 01/16/24
Tikosyn loading 01/19/24
Chronic anticoagulation with Eliquis
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
Bladder cancer s/p L robotic nephroureterectomy 09/20/2022, multiple TURBTs with new bladder tumors s/p resection
New metastatic disease to lung, started PadCev 12/19/23 weekly with Keytruda q 21 days first dose 12/19/23, also prednisone and bactrim m,w,f
h/o nephrolithiasis with stone removal and stent placement
Chronic renal insufficiency
h/o aortic valve replacement 2007
HLD
BPH
Recent fall with chin laceration 12/2023
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
ECHO 09/05/23: EF 60 to 65%, stage III diastolic dysfunction, mild concentric LVH, dilated RV, severely dilated atria, mild to moderate MR, well-seated #23 AVR with peak/mean gradients 10/5 mmHg, moderate TR, PAP 57 mmHg
Echo 01/21/24: EF 59%, mild concentric LVH, stage III diastolic dysfunction, normal RV size and function, well-seated tissue AVR peak/mean 23/11 mmHg without aortic regurgitation, mild to moderate TR with PAP [address] Chest 01/25/24: scattered foci of acute pneumonitis superimposed on chronic changes of interstitial lung disease, no significant pleural effusions, no pulmonary edema. Rounded focus of increased density within the lingula, similar size to previous
CT, but now having air bronchograms suggestive of a focal area of atelectasis and/or scarring rather than neoplasia
Plan:
-Weight is down 23 lbs with Lasix IV diuresis this admission. pro-BNP was 2480 on admission and then down to 933 on 01/23/24. Lasix changed to 40 mg PO daily on 01/24/24 and wt down additional 3 lbs (1 lb in past 24 hrs) with rising BUN/Creat (BUN is
up and creat is at approx recent baseline)
Will reduce Lasix to 20 mg PO daily which can be his outpatient maintenance dose with close attention to leroy trends
-Patient admitted with multifactorial hypoxic respiratory insufficiency and initially required high flow oxygen in ICU. Patient with ILD and possible h/o amio lung toxicity, but then later diagnosed with lung mets from primary urothelial CA and
treatment with Keytruda and Padcev was started with may have increased interstitial pneumonitis. This is complicated by heart failure with preserved ejection fraction in addition and atrial arrhythmias now status post ablation.
-Patient being followed by Pulm and Heme/Onc. Decadron weaned to 6 mg IV q 8 hours. Also completed 5 days of ceftriaxone and doxycycline.
-Patient with a h/o symptomatic Afib/flutter/tach and last ablation was an Atach ablation 01/16/24. Patient with 2:1 atypical atrial flutter on admission and was loaded with Tikosyn 250 mcg BID starting 01/19/24 and patient spontaneously converted to
SR after one dose Tikosyn. 5th dose of Tikosyn was given 01/21/24 AM and QTc stable at 482 ms on ECG 2 hours later.
Cont Tikosyn 250 mcg q 12 hours. Stable QTc 473 ms on ECG 01/24/24
-Since creat has improved with new baseline 1.3-1.4 Eliquis has been increased to 5 mg BID
-New to Toprol XL 25 mg daily this admission
-Echo summarized above. EF 59% with stable AVR gradients.
-Likely would benefit from SNF but pt refusing. Agrees to go home with VN
Stable for DC to home from cardiology standpoint
Discussed with patient and IVU nursing
All questions answered
total time 55 min
Progress Note - Contract Mail Carrier
Subjective
Date of Service: January 26, 2024
tells me he 'feels better, less SOB, ready to go home'
Objective
Labs:
01/21/24 04:50
01/26/24 03:59
Labs
Hgb 11.9 g/dL (13.0-18.0) L 01/21/24 04:50
Hct 33.8 % (39.0-52.0) L 01/21/24 04:50
Plt Count 202 10^3/uL (130-400) D 01/21/24 04:50
PT 15.8 Sec (11.4-14.6) H 01/19/24 13:35
INR 1.27 01/19/24 13:35
Sodium 136 mmol/L (135-145) 01/26/24 03:59
Potassium 4.8 mmol/L (3.5-5.1) 01/26/24 03:59
BUN 71 mg/dl (9-20) H 01/26/24 03:59
Creatinine 1.4 mg/dL (0.7-1.3) H 01/26/24 03:59
Glucose 157 mg/dl (70-99) H 01/26/24 03:59
Vital Signs and I&O:
Vital Signs
Temp Pulse Resp BP Pulse Ox
97.9 F 63 20 103/75 100
01/26/24 08:30 01/26/24 03:50 01/26/24 08:30 01/26/24 03:50 01/26/24 08:30
Vital Signs
Temp Pulse Resp BP Pulse Ox
97.9 F 63 20 103/75 100
01/26/24 08:30 01/26/24 03:50 01/26/24 08:30 01/26/24 03:50 01/26/24 08:30
Intake & Output
01/24/24 01/25/24 01/26/24 01/27/24
06:59 06:59 06:59 06:59
Intake Total 650 / 650 480 / 480
Output Total 1400 / 1400 2325 / 2325 1650 / 1650
Balance -750 / -750 -2325 / -2325 -1170 / -1170
Physical Exam
Physical Exam
GEN: No distress, awake, Ox3, sitting in chair wearing oxygen
HEENT: supple, anicteric, mmm
LUNGS: Clear bilaterally, no wheezes/rales
CV: Reg, S1/S2, 1/6 AHSM, rub or gallop
ABD: soft, BS+, NT/ND
EXT: No edema, clubbing or cyanosis
NEURO: Gross non-focal
SKIN: No rash, warm, dry, pink
[2024-01-26] MEDS: DECADRON 6 MG IV (08:57)
[2024-01-26] MEDS: TOPROL XL 25 MG PO (08:58)
[2024-01-26] MEDS: ELIQUIS 5 MG PO (08:58)
[2024-01-26] MEDS: TIKOSYN 250 MCG PO (08:58)
[2024-01-26] MEDS: MUCINEX 600 MG PO (08:59)
[2024-01-26] MEDS: LASIX 20 MG PO (09:27)
[2024-01-26] MEDS: LASIX PO (09:28)
--- NOTE | 2024-01-26 10:23 | W.PN.HOSP.TC ---
Today's Communication/Plan
-
dc home
prednisone taper
lasix
Assessment / Plan
Assessment / Plan
Gen-AAOx3, NAD
HEENT-NC, AT, anicteric, clear oral mm
Neck-supple
CV-reg, no M, +S1/S2
Lungs-mild bilateral rhonchi, oxygen on 3L
Abd-soft, NT, ND
Ext-no edema
Musculoskeletal-no cyanosis, clubbing
Skin-warm and dry
Neuro-grossly non-focal
Psych-calm, cooperative
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
Oxygen midflow from 6 L to 3L now.
Complicated pulmonary history noted. CT Chest on 01/25/24 suggesting scattered foci of acute pneumonitis superimposed on chronic changes of interstitial lung disease. No significant pleural effusions are identified. These CT findings are not
considered highly suggestive of a superimposed component of pulmonary edema.The visualization of air bronchograms suggested this is most likely a focal area of atelectasis and/or scarring rather than neoplasia, but continued follow-up is advised.
Not on home oxygen but was recently discharged from our hospital 01/16 on 3 L of oxygen. At baseline home oxygen.
Started on IV high dose decadron 6 mg every 8 hours-plan will be to start 60 mg may need to use 10 mg per pulmonary till 20 mg
Steroids per pulmonary
#Acute nonischemic myocardial injury- likely 2/2 given fast rates from atrial fibrillation and respiratory failure.
Troponin elevation noted, will trend. Currently denies chest pain.
#Acute heart failure with preserved EF exacerbation
not on diuretics at home. Weight now downtrended.
BNP downtrended.
Last echocardiogram was 09/05/2023, LVEF 60 to 65%, stage III diastolic dysfunction, severely dilated atria, mild to moderate MR, moderate TR.
Cardiology recommend to reduce Lasix to 20 mg daily.
#Sepsis due to community-acquired pneumonia -likely multilobar, chest x-ray 01/18 reviewed and shows diffuse infiltrates, somewhat improved in the left lower lobe compared to previous film 01/17.
Continue ceftriaxone, doxycycline. e Completed course of antibiotics.
Leukocytosis resolved. Afebrile.
Influenza, COVID-negative. Legionella, pneumococcus antigens negative. MRSA screen negative.
#Atrial fibrillation with rapid ventricular response -converted to sinus rhythm
Rates controlled currently. Continue Tikosyn per cardiology. Qtc stable
Off Cardizem drip. Oral Cardizem dose to be held today given controlled rate.
Metoprolol started and dose increased by cardiology. Continue Eliquis for stroke prophylaxis.
Underwent recent ablation for supraventricular tachycardia on 01/15. Cardioversion on 12/26 for symptomatic atrial fibrillation.
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
Admission creatinine 1.6 on January 17, 1.7 on January 16.
Etiology of JUAN possibly related to cardiorenal syndrome from CHF.
Cr around 1.3-1.4.
History of bladder cancer -treated with left robotic nephroureterectomy September 2022. Known metastatic disease to the lung. On weekly Keytruda and Padcev. Bactrim 3 times a week for PCP prophylaxis, currently on hold.
AVR -2007.
BPH
hyperlipidemia -on simvastatin.
History of nephrolithiasis
Full code
PT/OT-refusing SNF. wants to go home VNA
More than 30 minutes spent in discharge including
Final examination of the patient
Summarizing hospital stay
Instructions for continuing care to all relevant caregivers
Preparation of discharge records, prescriptions, and referral forms
Total time spent (in minutes): 53
Anticipated Discharge: Today
Subjective/Interval History
-
Date of Service: January 26, 2024
States feeling significantly better
Remains on 3 L of oxygen
Blood pressure stable
Objective Data
-
Labs:
Laboratory Results
01/26/24
03:59
Sodium 136
Potassium 4.8
Chloride 98
Carbon Dioxide 29
BUN 71 H
Creatinine 1.4 H
Glucose 157 H
Calcium 8.7
Vital Signs:
Vital Signs
Temp Pulse Resp BP Pulse Ox
97.9 F 74 20 120/80 100
01/26/24 08:30 01/26/24 09:27 01/26/24 08:30 01/26/24 09:27 01/26/24 08:30
I&O
01/25/24 01/26/24 01/27/24
06:59 06:59 06:59
Intake Total 480 / 480
Output Total 2325 / 2325 1650 / 1650
Balance -2325 / -2325 -1170 / -1170
--- NOTE | 2024-01-26 10:35 | W.DCSUMMARY ---
Discharge Summary
Discharge Data
Date of Admission: 01/18/24
Date of Discharge: 01/26/24
-
Pending Results: No
Hospital Course
88-year-old male past medical history of interstitial lung disease CKD, history of bladder cancer, aortic valve placement, BPH, hyperlipidemia, history of atrial fibrillation, atrial flutter, was presenting with complaint of shortness of breath.
Patient was found in acute on chronic hypoxic respiratory failure. Patient was monitored in the medical ICU. Patient was eval by pulmonary and cardiology. Patient with complex lung pathology and his could have been due to immunotherapy related
pneumonitis, interstitial lung disease, pulmonary edema to CHF and pneumonia. Patient finished course of ceftriaxone and doxycycline antibiotic during hospitalization. Patient also with atrial fibrillation with rapid ventricular response.
Cardizem was discontinued and started metoprolol. Patient was started on Tikosyn loading dose and EKG was subsequently monitored closely. Patient was also started on high-dose steroids. CT Chest on 01/25/24 suggesting scattered foci of acute
pneumonitis superimposed on chronic changes of interstitial lung disease. No significant pleural effusions are identified. These CT findings are not considered highly suggestive of a superimposed component of pulmonary edema.The visualization of air
bronchograms suggested this is most likely a focal area of atelectasis and/or scarring rather than neoplasia, but continued follow-up is advised. Patient will be weaned off of IV high-dose steroids to 60 mg prednisone and decrease by 10 mg q.
weekly till 20 mg. Patient was recommended to follow-up with pulmonary as outpatient for further down titration or continuation of prednisone and for CT chest finding. Patient was also eval by oncology who recommended no further Keytruda
immunotherapy. Patient heart rate significantly improved. Patient creatinine stabilized. Patient also with acute heart failure exacerbation received IV Lasix. Patient was weaned off high flow nasal cannula to mid flow. Patient returned back to
baseline oxygenation at 3 L. IV Lasix with transition to 20 mg p.o. Lasix on discharge. Patient was eval by physical and Occupational Therapy. Patient wanted to go home with VNA.
Discharge Plan
-
Patient Disposition: Home with Home Care
Discharge Diagnosis/Procedures: Acute hypoxic respiratory failure likely multifactorial due to immunotherapy related pneumonitis, ILD, pulmonary edema, pneumonia
Acute nonischemic myocardial injury
Acute HFpEF
Sepsis due to acuity acquired pneumonia
Atrial fibrillation with rapid ventricular response
Possible acute kidney injury on chronic kidney disease
Condition: Fair
Diet: 2 Gram Sodium and Restrict fluids to 48 oz
Activity: With assistance and As tolerated
Driving Restrictions: As prior to admission
Other Services: VN
Specialty Instructions: Weigh Daily- Call MD for wt gain/loss 3 lbs overnight/5 lbs in 1 week
Referrals:
[facility] [Outside]
Ben Rubalcava DO [Active] - 02/13/24 9:15 am ([place] office)
Mamadou Faustin MD [Active] - in two to four weeks (change appt from 01/23 to end jan with Ramin)
Brant Kruse MD [Family Provider] -
Richardson Ring MD [Active] - 01/29/24 11:20 am (You have cardiology follow up with Dr. Richardson Ring on January 28 at 11:20 am. If you are unable to make this appointment please call [phone] to reschedule)
Additional Discharge Medication Instructions: Cardziem been discontinued. Eliquis dose has been increased to 5 mg twice daily
Prescriptions:
New
dofetilide 250 mcg Capsule
250 mcg PO Q12 30 Days Qty: 60 0RF
furosemide 20 mg Tablet
20 mg PO DAILY 30 Days Qty: 30 0RF
metoprolol succinate 25 mg Tablet Extended Release 24 Hr
25 mg PO DAILY 30 Days Qty: 30 0RF
prednisone 10 mg Tablet
See Rx Instructions .ROUTE .COMPLEX Qty: 140 0RF
Rx Instructions:
Take By Mouth:
60 mg daily x7 days, 50 mg daily x7 days,
40 mg daily x7 days, 30 mg daily x7 days,
20 mg daily x7 days
Continued
finasteride 5 MG tablet
5 mg PO HS
simvastatin 10 MG tablet
10 mg PO HS
Keytruda 25 mg/mL Solution
200 mg IV Q3W
Changed
Eliquis 5 mg Tablet
5 mg PO BID Qty: 0 0RF
Patient Comments:
01/18/24-patient cuts his 5mg in half
Discontinued
sulfamethoxazole-trimethoprim [Bactrim DS] 800-160 mg Tablet
1 tab PO MOWEFR
diltiazem HCl 120 mg Capsule,Extended Release 24hr
120 mg PO BID Qty: 60 0RF
Discharge Orders:
Discharge Patient (As Directed); Ordered 01/26/24
Ordered By: Jamie Isaac
Care Plan Goals
Care Plan Goals:
Problem: Readiness for enhanced knowledge related to diagnosis and treatment plan
Goal: Understand your diagnosis and treatment plan needs, including medications if applicable.
Instructions: Know your diagnosis, underlying causes and treatment plan options, including medications if applicable. Consult with your health care team to learn about your diagnosis and treatment plan, including medications if applicable.
Discharge Date and Time
Discharge Date/Time: 01/26/24 15:47
Print Language: VIETNAMESE
[2024-01-26 10:55] VITALS: BP 100/75
[2024-01-26 11:35] VITALS: PULSE 73; O2SAT 92
--- NOTE | 2024-01-26 12:24 | W.PN.PUL3 ---
Today's Communication / Plan
-
Prednisone taper
Ox supplementation
Eventual repeat CT chest
Outpatient follow-up with Dr. Faustin
Sign off
Assessment
-
88-year-old male with extremely complex cardiopulmonary history, recurrent atrial fibrillation/flutter with rapid ventricular response status post recent ablation and 01/15, requiring cardioversion 01/16 in the ED, recently diagnosed metastatic
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 We are asked to help from pulmonary standpoint
Impression:
Acute hypoxic respiratory insufficiency now on midflow nasal cannula
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
Acute HFpEF exacerbation with stage III diastolic dysfunction (per TTE from 01/21/24)
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
Atrial fibrillation with rapid ventricular response now in NSR
Metastatic urothelial cell cancer s/p Bx at [facility] (Keytruda/Padvec immunotherapy started in the last month)
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
Renal insufficiency, creatinine 1.4
Conditions present prior to admission
History of atrial fibrillation/atrial flutter
Multiple PVI
Multiple cardioversions
Failed sotalol, off amiodarone since August 2023 (Amio tox)
History of biologic aortic valve replacement 2007
Hypertension/hyperlipidemia
Recently diagnosed metastatic urothelial cell cancer to the lung
Status post bronchoscopy at [facility] October 2024
Plan/recommendations:
Clinically improved.
Down to 3 L nasal cannula.
Baseline
-
Extremely complex history with care both at [facility] and at [facility]
Notable features are baseline chronic interstitial disease not requiring oxygen therapy as of 6 months ago, with recently initiated Keytruda and Padcev over the past 4 to 6 weeks
He has had no shortness of breath after receiving Keytruda but did feel fatigued afterwards. Of note, he was still weaning his prednisone after receiving Keytruda, hence difficult to assess if worsening dyspnea was due to downtrending OCS dosing vs
Keytruda-induced pneumonitis
Incidence of pulmonary toxicity with Keytruda well-established
Unclear whether combination of these medications may lead to increased interstitial pneumonitis. There is documented worsening neuropathy and fatigue when these medications are taken in combination
Prednisone taper -60 mg daily with a very slow taper going forward, reducing by 10mg every 7th day until back to baseline 20mg daily
Difficult to differentiate between infectious process but would agree with ceftriaxone/doxycycline-at this point given rapid improvement chest x-ray and lack of infection symptom rec'd to complete 5 days of antibiotics --> ABX stopped on 01/21
CT chest shows persistent bilateral groundglass opacities, similar to prior CT chest from 11/27/2023, but improved compared to CXR on 01/18/2024. He has a persistent rounded focus in the lingula similar in size to prior CT and now with air
bronchograms. No significant pleural effusions. He will need to have continued outpatient radiographic follow-up to monitor persistence versus worsening/improvement of these interstitial changes.
Cardiology followin
Failed sotalol, amiodarone stopped for toxicity reasons
on Tikosyn heart rate has improve
Continue diuretics - currently on lasix 40mg PO daily
Cardiology following closely
Recent cardiac catheterization including right heart catheterization August 2023 reviewed. At that time wedge pressure was normal, RV systolic pressure 43
Pulmonary will continue to follow.
For discharge today.
Sign off
Subjective Data
-
Date of Service:
Date of Service: January 26, 2024
Chief Complaint: Pulmonary Follow Up (Hypoxemic respiratory failure)
Subjective:
Feels better.
Excited to go home
Denies significant phlegm production
No significant shortness of breath at rest
Tolerating the
Review of Systems
Cardiopulmonary: Dyspnea (Improved)
Objective Data
Data Reviewed
Vital Signs / I&O / Oxygen:
Vital Signs
Temp Pulse Resp BP Pulse Ox
98.1 F 74 20 120/80 92
01/26/24 12:03 01/26/24 09:27 01/26/24 12:03 01/26/24 09:27 01/26/24 12:03
Intake and Output
01/25/24 01/26/24 01/27/24
06:59 06:59 06:59
Intake Total 480 / 480
Output Total 2325 / 2325 1650 / 1650
Balance -2325 / -2325 -1170 / -1170
SaO2 92
Nasal Cannula flow liters per 3
minute
Physical Exam
General: Respiratory Distress (negative), Comfortable, Chills (negative) and Sweats (negative)
HEENT: Normocephalic, Anicteric and Moist Mucous Membranes
Cardiovascular: S1-S2, Murmur (+DARIN heard across precordium) and Peripheral Edema (negative)
Respiratory: Wheeze (negative), Crackles (Anderson bilaterally, worse in the bases), Rhonchi (negative) and Non-Labored Respirations
GI: Soft, Non Distended, Non Tender and Normal Bowel Sounds
Neurology: AO x 3 and Tremors (negative)
Skin: Warm, Dry, Cyanosis (negative) and Jaundice (negative)
Labs/Micro/Reports
Lab Data
01/21/24 04:50
01/26/24 03:59
--- NOTE | 2024-01-26 13:42 | PTCARENOTE ---
received this very pleasant patient this am. Monitor shows NSR, VSS. CHG bath done by PCT. right SQ port accessed , called IV team to deaccess by 1500 today because patient will be discharged to home. o2 remains at 3LNC, o2 sat 95%, patients
will bring his home o2 for discharge. Tikosyn will be given to patient at discharge from our pharmacy.
--- NOTE | 2024-01-26 15:42 | PTCARENOTE ---
D/C instructions given to patient and family, all verbalizes understanding. [facility] will see patient, D/C faxed to them by varnishing unit tool setter. INT D/C'd, telemetry D/C'd, personal belongings packed and sent home with pt. family brought his home o2, 3LNC
placed on patient. D/C to home via wc accompanied by by staff.
== END 2024-01-26 15:47 | disposition home health service (06) | DRG 871 ==
LOC: IVU 13:33
PROVIDERS: Hospitalist; Internal Medicine Critical Care Medicine; Nurse Practitioner Family; Physician Assistant; Registered Nurse; ADMITTING PHYSICIAN Hospitalist; ATTENDING PHYSICIAN Hospitalist; CONSULT PHYSICIAN Internal Medicine Cardiovascular Disease; CONSULT PHYSICIAN Internal Medicine Critical Care Medicine; CONSULT PHYSICIAN Internal Medicine Hematology & Oncology; EMERGENCY PHYSICIAN Emergency Medicine; FAMILY PHYSICIAN Internal Medicine
PROC: 3E033RZ Introduction of Antiarrhythmic into Peripheral Vein, Percutaneous Approach (ICD-10-PCS; 2024-01-19)
DX: A41.89 Other specified sepsis (principal); I50.31 Acute diastolic (congestive) heart failure; J18.9 Pneumonia, unspecified organism; J96.21 Acute and chronic respiratory failure with hypoxia; I48.92 Unspecified atrial flutter; I5A Non-ischemic myocardial injury (non-traumatic); J44.0 Chronic obstructive pulmonary disease with (acute) lower respiratory infection; I13.0 Hypertensive heart and chronic kidney disease with heart failure and stage 1 through stage 4 chronic kidney disease, or unspecified chronic kidney disease; N17.9 Acute kidney failure, unspecified; C78.00 Secondary malignant neoplasm of unspecified lung; D84.9 Immunodeficiency, unspecified; Z11.52 Encounter for screening for COVID-19; I48.0 Paroxysmal atrial fibrillation; Z79.01 Long term (current) use of anticoagulants; Z87.891 Personal history of nicotine dependence; J98.4 Other disorders of lung; N18.32 Chronic kidney disease, stage 3b; T38.0X5A Adverse effect of glucocorticoids and synthetic analogues, initial encounter; Y65.8 Other specified misadventures during surgical and medical care; T46.2X5A Adverse effect of other antidysrhythmic drugs, initial encounter
CPT/HCPCS: 71045; 71046; 71250; 80048; 80053; 80202; 82962; 83735; 83880; 84484; 85025; 85027; 85610; 85652; 86140; 87449; 87502; 87641; 87811; 87899; 93005; 93306; 96365; 96366; 96375; 97116; 97162; 97530; 99285; J1160

== ENCOUNTER 2024-02-17 20:36 | Inpatient (IN) | payer OTHER, SELFPAY ==
[2024-02-17] VITALS (10 sets, daily range): BP systolic 110–139; BP diastolic 68–113; BMI 27.6; BMI 27.1
[2024-02-17 17:26] LABS: Lactic Acid 3.4 mmol/L (0.7-2.0)
[2024-02-17 17:29] LABS: ALT (SGPT) 32 U/L (0-50); AST (SGOT) 31 U/L (17-59); Albumin 3.5 g/dl (3.5-5.0); Alkaline Phosphatase 82 U/L (38-126); Blood Urea Nitrogen 38 mg/dl (9-20); Calcium 8.9 mg/dl (8.4-10.2); Carbon Dioxide 29 mmol/L (22-30); Chloride 102 mmol/L (98-107); Glucose 197 mg/dl (70-99); Potassium 5.1 mmol/L (3.5-5.1); Sodium 139 mmol/L (135-145); Total Bilirubin 1.1 mg/dl (0.2-1.3); Total Protein 6.1 g/dl (6.3-8.2); eGFR 38.78
[2024-02-17 17:29] LABS: COVID-19 Antigen Negative (Negative)
[2024-02-17 17:30] LABS: % Basophils 0.3 % (0-2); % Eosinophils 0.2 % (0-6); % Immature Granulocytes 1.6 % (0-0.5); % Lymphocytes 8.6 % (20.5-51.1); % Monocytes 3.6 % (1.7-9.3); % Neutrophils 85.7 % (42.2-75.2); Absolute Immature Granulocytes 0.1 10^3/uL (0-0.05); Absolute Lymphocytes 0.6 10^3/uL (1.2-3.4); Absolute Monocytes 0.2 10^3/uL (0.1-0.6); Absolute Neutrophils 5.5 10^3/uL (1.4-6.5); Hematocrit 39.9 % (39.0-52.0); Hemoglobin 13.4 g/dL (13.0-18.0); Mean Corp Hgb Conc. 33.6 g/dL (33.0-37.0); Mean Corpuscular Volume 95.2 fL (80.0-94.0); Nucleated Red Blood Cells % 0 % (-); Red Blood Cell Count 4.19 10^6/uL (4.70-6.10); Red Cell Dist. Width 15.8 % (11.5-14.5); White Blood Cell Count 6.4 10^3/uL (4.8-10.8)
[2024-02-17 17:40] LABS: NT-proBNP 2070 pg/ml; Troponin I 0.057 ng/ml
[2024-02-17 17:59] LABS: Mean Platelet Volume 9.7 fL (7.4-10.4); Platelet Count 93 10^3/uL (130-400)
--- NOTE | 2024-02-17 18:17 | ED.GENMED ---
History of Present Illness
General
Chief Complaint: Breathing Problem
Source: patient
Exam Limitations: none
Time Seen by Provider: 02/17/24 17:58
History of Present Illness
History of Present Illness:
See MDM
Past History
Past History
ED Past Medical History: Arrthythmia (On Eliquis), Cancer, COPD, Hypercholesterolemia, Valvular disease, Other (Kidney stones) and Other (Recently diagnosed with interstitial lung disease 08/2023 on home oxygen 3 L/min)
ED Past Surgical History: Cardiac (Porcine valve replacement), Orthopedic and Other (Cystoscopy with ureteral stone removal, and stent placement)
Social History
Tobacco: Non-smoker
Alcohol: Occasional
Drug: None
Personal:
Living: with family
Employment: Retired
Family History
Family History: Negative CAD
Phy Exam
Physical Exam
Physical Exam:
See MDM
Scores
Heart Failure Risk
Heart Failure Risk Score: Not Applicable
Course
Orders/Labs/Results
Orders:
Orders
02/17/24 16:52
ECG [Electrocardiogram (*1)] Urgent
Reason for Study: Shortness of Breath
CR Chest - 2 Views Urgent
Comment:
Reason For Exam: SOB
02/17/24 16:53
EKG- Treatment ONCE
02/17/24 17:05
Complete Blood Count/With Diff Urgent
Comprehensive Metabolic Panel Urgent
NT-proBNP Urgent
Troponin I Urgent
Influenza A+B Rapid Molecular Urgent
MARYANN Source: Nasal Swab
Specimen Description:
02/17/24 17:06
COVID-19 Antigen Urgent
Source: Nasal Swab
Lactic Acid Urgent
02/17/24 18:14
Prednisone [Deltasone] 40 mg PO NOW STA
Abnormal Lab Results
02/17/24 02/17/24
17:05 17:06
RBC 4.19 L 10^6/uL
(4.70-6.10)
MCV 95.2 H fL
(80.0-94.0)
MCH 32.0 H pg
(27.0-31.0)
RDW 15.8 H %
(11.5-14.5)
Plt Count 93 L 10^3/uL
(130-400)
Abs Immat Gran (auto) 0.1 H 10^3/uL
(0-0.05)
Absolute Lymphs (auto) 0.6 L 10^3/uL
(1.2-3.4)
Immature Gran % 1.6 H %
(0-0.5)
Neutrophils % 85.7 H %
(42.2-75.2)
Lymphocytes % 8.6 L %
(20.5-51.1)
BUN 38 H mg/dl
(9-20)
Creatinine 1.7 H mg/dL
(0.7-1.3)
Glucose 197 H mg/dl
(70-99)
Lactic Acid 3.4 H mmol/L
(0.7-2.0)
Troponin I 0.057 H* ng/ml
Total Protein 6.1 L g/dl
(6.3-8.2)
02/17/24 17:05
02/17/24 17:05
Vital Signs
Initial and Last Documented VS:
Initial Vital Signs
Temp Pulse Resp BP Pulse Ox
97.6 F 85 20 139/92 91
02/17/24 16:45 02/17/24 16:45 02/17/24 16:45 02/17/24 16:45 02/17/24 16:45
Last Documented Vital Signs
Temp Pulse Resp BP Pulse Ox
97.6 F 82 30 125/88 94
02/17/24 16:45 02/17/24 18:00 02/17/24 18:00 02/17/24 18:00 02/17/24 18:00
MDM/Problems Addressed
Differential Diagnosis Includes:
HPI and MDM Narrative:
88-year-old male presenting for evaluation of worsening shortness of breath. Patient has a history of active lung cancer and interstitial lung disease. He is currently on a steroid taper. He is about to transition from 30 mg to 20 mg prednisone
tomorrow. Patient is on 3 L nasal cannula chronically. He does acknowledge that he fell asleep last night without his oxygen. This was accidental. Throughout the day, patient has been trying to get his pulse ox elevated has been unsuccessful.
He denies any significant cough and denies any fevers. Blood work and chest x-ray were done prior to my evaluation. Chest x-ray is consistent with likely acute on chronic interstitial lung disease. Given no leukocytosis and no fever and no
productive cough, doubt pneumonia. Patient is compliant with Eliquis. Doubt PE. Will increase his steroid taper back to 40 mg. Because he is requiring 5 to 6 L nasal cannula, will admit overnight for possible pulmonology evaluation and case
management evaluation to ensure that he has the appropriate oxygen at home
Physical exam
General: Well appearing and non-toxic
HEENT: protecting airway
Neck: appears supple
CV: No evidence of cyanosis
Resp: No accessory muscle use. Rhonchorous breath sounds throughout
Abd: Non-distended
Extremities: No deformities. No leg edema
Neuro: alert
Psych: Normal affect
Skin: Intact
Problems Addressed including Acute and Chronic Conditions affecting care:
1. Hypoxia and interstitial lung disease
Acuity: acute on chronic
Prognosis: stable
Details: Patient requiring increased oxygenation. Will give dose of 40 mg prednisone and admit for pulmonology and case management evaluate
Differential Diagnosis (but not limited to): Pneumonia, end-stage lung disease
Testing considered:
Drug therapy (if applicable): OTC meds, please see d/c instruction regarding Rx drugs
Amount and/or Complexity of Data Reviewed
Clinical info obtained from: Patient
External data reviewed: N/A
Labs I independently reviewed (but not limited to): Chronically elevated troponin
Radiology: X-ray independently reviewed: Chest x-ray shows worsening interstitial lung disease
Pulse Ox: hypoxic
EKG independently reviewed: Sinus rhythm with PACs, left axis, no STEMI
Central Office Supervisor: Sinus rhythm
Critical Care: N/A
Risk of Complication:
Social Determinants of health: Good social support
Discussed with other providers: Hospitalist
Escalation of Care includes Admit/Obs: Given the worsening hypoxia requiring increased oxygenation, will admit
Occasional wrong word or 'sound a like' substitutions may have occurred due to the inherent limitations of voice recognition software. Read the chart carefully and recognize, using context, where substitutions have occurred.
*Critical Care Note
Total Time (30-74mins, 75-104mins- exclusive of procedures): Not Applicable
ED Attending Note
-
Portions of this chart may have been created with voice recognition software.� Occasional wrong word or��sound alike� substitutions may have occurred due to the inherent limitations of voice recognition software.
Discharge Plan
Departure
Patient Disposition: Admit
Date of Disposition: 02/17/24
Time of Disposition: 18:26
Admit to: Med/Surg
Presentation/result/management discussed w/ accepting MD/DO: Hospitalist
Discharge Problem:
Hypoxia, ILD (interstitial lung disease)
Prescriptions:
No Action
finasteride 5 MG tablet
5 mg PO HS
simvastatin 10 MG tablet
10 mg PO HS
Keytruda 25 mg/mL Solution
200 mg IV Q3W
dofetilide 250 mcg Capsule
250 mcg PO Q12 30 Days Qty: 60 0RF
furosemide 20 mg Tablet
20 mg PO DAILY 30 Days Qty: 30 0RF
metoprolol succinate 25 mg Tablet Extended Release 24 Hr
25 mg PO DAILY 30 Days Qty: 30 0RF
Eliquis 5 mg Tablet
5 mg PO BID Qty: 0 0RF
Patient Comments:
01/18/24-patient cuts his 5mg in half
prednisone 10 mg Tablet
See Rx Instructions .ROUTE .COMPLEX Qty: 140 0RF
Rx Instructions:
Take By Mouth:
60 mg daily x7 days, 50 mg daily x7 days,
40 mg daily x7 days, 30 mg daily x7 days,
20 mg daily x7 days
Interventions
Interventions:
*Risk Screen - Suicide Last Done: 02/17/24 17:35
*General Assessment Last Done: 02/17/24 16:45
*Neglect/Abuse Screening Last Done: 02/17/24 17:35
ED- Fall Risk Assessment Last Done: 02/17/24 17:35
ED- Cardiac Assessment Last Done: 02/17/24 17:35
ED- Pulmonary Assessment Last Done: 02/17/24 17:35
Discharge Date and Time
Print Language: ISRAELI
[2024-02-17] MEDS: DELTASONE 40 MG PO (18:36)
--- NOTE | 2024-02-17 19:57 | HPS.HSE ---
Family Physician
-
Family Physician: Brant Kruse
Chief Complaint
-
SOB
History of Present Illness
Patient is an 88y M with PMH significant for ILD, A-Fib and chronic hypoxemia on home O2 who presents to ED complaining of SOB. Patient was recently admitted 01/17 - 01/25 for similar symptoms. He was treated with steroids and started on
supplemental oxygen and his symptoms improved. Patient was discharged on O2 supplementation at 3 lpm as well as a prednisone taper. He states that he had been doing fairly well until last PM when he accidentally fell asleep without his oxygen on.
He slept all night with no O2 and woke this AM feeling fatigued and SOB. He states that his SpO2 at home was 74% when he first woke. He replac d his oxygen and rested for much of the day - hoping that his O2 would recover. His saturations
remained in the upper 80s despite this. Patient states that he felt sluggish and fatigued for the entire day. No fevers / chills. No significant cough / mucus production.
Medical History
Past Medical History
Past Medical History: Reports Other
Additional Past Medical History:
Chronic Hypoxemic Respiratory Failure - Multifactorial
Interstitial Lung Disease
Chronic HFpEF
Paroxysmal Atrial Fibrillation
Valvular Heart Disease
CKD III
Metastatic Urothelial Cell Cancer
Nephrolithiasis
BPH
Past Surgical History: Reports Other
Additional Past Surgical History:
Atrial Valve Repair
DCCV
Multiple Ablations
Loop Recorder
Left Ureterectomy
Multiple TURBT
Hernia Repair
Port Placement
Social History
Tobacco: Non-smoker
Alcohol: None
Drug: None
Family History
Family History: Not pertinent
Allergies / Home Medications
Allergies reflects when Allergies were last updated in [employer].
Home Medications with original date entered in [employer]
Allergy/Medication List:
Allergies
Allergy/AdvReac Type Severity Reaction Status Date / Time
No Known Allergies Allergy Verified 02/17/24 16:45
Home Medications
finasteride 5 mg tablet 5 mg PO HS prostate 05/25/10
simvastatin 10 mg tablet 10 mg PO HS High cholesterol 09/04/19
apixaban 5 mg tablet (Eliquis) 5 mg PO BID Blood Clot Prevention/Tx #0 tabs 01/26/24
dofetilide 250 mcg capsule 250 mcg PO Q12 Arrhythmia 30 days #60 caps 01/26/24
furosemide 20 mg tablet 20 mg PO DAILY Heart Failure 30 days #30 tabs 01/26/24
metoprolol succinate 25 mg tablet,extended release 24 hr 25 mg PO DAILY Arrhythmia 30 days #30 tabs 01/26/24
prednisone 10 mg tablet See Rx Instructions .Route .COMPLEX #140 tabs 01/26/24
dapsone 25 mg tablet 50 mg PO DAILY 02/17/24
Review of Systems
-
History Source: Patient
A 12 point ROS was completed and negative except as noted: Yes
Constitutional: Reports Fatigue; Denies Fever or Chills
Respiratory: Reports Trouble Breathing; Denies Cough or Hemoptysis
Cardiac: Denies Chest Pain or Palpitations
Abdomen/GI: Denies Abdominal Pain, Nausea, Vomiting or Diarrhea
: Denies Dysuria or Frequency
Neurological: Denies Dizzy or Headache
Psych: Denies Depression or Anxiety
Physical Exam
Vital Signs
Vital Signs
Temp Pulse Resp BP Pulse Ox
97.6 F 84 20 112/88 93
02/17/24 16:45 02/17/24 19:00 02/17/24 19:00 02/17/24 19:00 02/17/24 19:00
Physical Exam
General: Other (88y M in no acute distress.)
HEENT: Moist mucous membranes and PERRLA
Respiratory: Other (Bibasilar rales about 1/3 up. No wheezing.)
Cardiac: S1/S2, Regular Rhythm and Murmur (II/ DARIN)
GI: Soft, Non Tender, Non Distended and Normal Bowel Sounds
Musculoskeletal: No Clubbing, No Cyanosis and No Edema
Neuro: AO x 3
Laboratory Results
-
02/17/24 17:05
02/17/24 17:05
Laboratory Results
Lactic Acid 3.4 mmol/L (0.7-2.0) H 02/17/24 17:06
Total Bilirubin 1.1 mg/dl (0.2-1.3) 02/17/24 17:05
AST 31 U/L (17-59) 02/17/24 17:05
ALT 32 U/L (0-50) 02/17/24 17:05
Alkaline Phosphatase 82 U/L (38-126) 02/17/24 17:05
Troponin I 0.057 ng/ml H* 02/17/24 17:05
Impression/Plan
-
A/P: Patient is an 88y M with PMH significant for chronic hypoxemia, ILD, CHF and urothelial cancer who presents to ED complaining of SOB.
Acute on Chronic Hypoxemic Respiratory Failure
ILD
- Admit for further evaluation and treatment.
- Suspect decompensation due to being without O2 overnight.
- Continue supplemental O2 and wean as able - currently requiring 5 lpm.
- Will increase prednisone back to 40mg daily for now.
- Pulm evaluation for additional recommendations.
- Case Management eval for new O2 arrangements if needed.
Paroxysmal Atrial Fibrillation
- Stable. Continue current med regimen including Tikosyn.
- Continue Eliquis for stroke risk reduction.
Chronic HFpEF
- Stable. Does not appear volume overloaded at present.
- Hold Lasix acutely and follow I/Os, etc.
JUAN on CKD III
- SCr today is 1.7 compared to recent baseline of 1.4.
- Hold Lasix for 24-48 hours as noted above.
- Follow for changes in labs / lytes.
Urothelial Cancer
- Recently stopped Keytruda due to worsening ILD / hypoxemia.
- On outpatient chemo regimen.
- Follow-up with Oncology as an outpatient.
DVT Prophylaxis: On Eliquis
Code Status: Full
[2024-02-17] MEDS: ELIQUIS 5 MG PO (22:01)
[2024-02-17] MEDS: PROSCAR 5 MG PO (22:01)
[2024-02-17] MEDS: LIPITOR 10 MG PO (22:01)
[2024-02-17] MEDS: TIKOSYN 250 MCG PO (22:02)
--- NOTE | 2024-02-17 22:15 | PTCARENOTE ---
Pt received at 2119. AAO x3. Pt able to walk from stretcher to bed. VSS. Pt placed on tele, oriented to room. Pt able to make needs known, call alexandre within reach.
[2024-02-18] VITALS (10 sets, daily range): BP systolic 101–137; BP diastolic 66–85; PULSE 76–78; O2SAT 88; BMI 27.1
[2024-02-18 05:35] LABS: Hematocrit 35.9 % (39.0-52.0); Hemoglobin 11.8 g/dL (13.0-18.0); Mean Corp Hgb Conc. 32.9 g/dL (33.0-37.0); Mean Corpuscular Hgb 31.8 pg (27.0-31.0); Mean Corpuscular Volume 96.8 fL (80.0-94.0); Mean Platelet Volume 10.1 fL (7.4-10.4); Platelet Count 92 10^3/uL (130-400); Red Blood Cell Count 3.71 10^6/uL (4.70-6.10); Red Cell Dist. Width 15.6 % (11.5-14.5); White Blood Cell Count 6.1 10^3/uL (4.8-10.8)
[2024-02-18 06:06] LABS: Blood Urea Nitrogen 35 mg/dl (9-20); Calcium 8.3 mg/dl (8.4-10.2); Chloride 106 mmol/L (98-107); Estimated Creatinine Clearance 42 ml/min; Glucose 156 mg/dl (70-99); Potassium 4.4 mmol/L (3.5-5.1); Sodium 139 mmol/L (135-145); eGFR 48.95
[2024-02-18 06:32] LABS: Carbon Dioxide 27 mmol/L (22-30)
[2024-02-18] MEDS: DAPSONE 50 MG PO (08:07)
[2024-02-18] MEDS: TOPROL XL 25 MG PO (08:07)
[2024-02-18] MEDS: ELIQUIS 5 MG PO ×2 (08:07→20:12)
[2024-02-18] MEDS: DELTASONE 40 MG PO (08:08)
[2024-02-18] MEDS: TIKOSYN 250 MCG PO ×2 (08:08→20:12)
--- NOTE | 2024-02-18 08:56 | VNURNOTE ---
Chart reviewed. Patient is current with [facility] nursing, OT, PT. Will continue to follow hospital course and DC plans.
--- NOTE | 2024-02-18 09:08 | W.PN.HOSP.TC ---
Today's Communication/Plan
-
Increase mid flow to obtain saturation greater than 89%
IV Solu-Medrol
Transferred to IMU
Assessment / Plan
Assessment / Plan
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
just discharged from the hospital after being treated for CHF preserved EF, amiodarone induced pulmonary toxicity followed locally and at [facility]-readmitted with persistent hypoxemia and pulmonary consulted for hypoxemia 02/18/2024. Patient states that
he went home and had increasing shortness of breath and noticed his pulse ox in the 80s and returned.
Acute on Chronic Hypoxemic Respiratory Failure
ILD exacerbation
Amiodarone induced pulmonary toxicity
- Has been on 3 L since 01/17/2024
- Currently satting in the low 80s on 5 L
- Increase mid flow to obtain saturation greater than 89%
- IV Solu-Medrol, will need eventually change to prednisone 60 mg with slow taper
- Transfer to IMU
Paroxysmal Atrial Fibrillation
- Continue Tikosyn and Eliquis
Chronic HFpEF
- Resume oral Lasix
JUAN on CKD III
- JUAN resolved, resume Lasix
Urothelial Cancer
- Recently stopped Keytruda due to worsening ILD / hypoxemia.
- On outpatient chemo regimen.
- Follow-up with Oncology as an outpatient.
DVT Prophylaxis: On Eliquis
Code Status: Full
Total time spent to see the patient on the floor, examine the patient, review data and lab results, discuss treatment plan with patient, nursing staff around 50 minutes.
Physical Exam
General: No acute distress
HEENT: Normocephalic, Atraumatic, EOMI, MMM
Respiratory: Bibasilar crackles
Cardiac: Normal S1/S2, Regular Rate and Rhythm
GI: Soft, Nontender, Nondistended, Normal Bowel Sounds
Extremities: No Clubbing, Cyanosis, or Edema
Neuro: Nonfocal/Grossly Intact
Psych: Calm, Cooperative
Derm: No Visible lesions
Anticipated Discharge: > 48 hours
Subjective/Interval History
-
Date of Service: February 18, 2024
Patient reports feeling foggy. Denies shortness of breath, denies dyspnea with activity. No coughing. No fever, no vomiting.
Objective Data
-
Labs:
Laboratory Results
02/18/24
05:08
WBC 6.1
Hgb 11.8 L
Hct 35.9 L
Plt Count 92 L
Sodium 139
Potassium 4.4
Chloride 106
Carbon Dioxide 27
BUN 35 H
Creatinine 1.4 H
Glucose 156 H
Calcium 8.3 L
Vital Signs:
Vital Signs
Temp Pulse Resp BP Pulse Ox
97.5 F 81 20 137/84 90
02/18/24 07:54 02/18/24 08:07 02/18/24 07:54 02/18/24 08:07 02/18/24 08:00
I&O
02/17/24 02/18/24 02/19/24
06:59 06:59 06:59
Intake Total 240 / 240
Balance 240 / 240
--- NOTE | 2024-02-18 10:00 | CON.PUL ---
Consultation
Consultation Request
Date/Time Consultation Requested: 02/18/2024-8 AM
Date/Time Consultation Performed: 02/18/2024-8:30 AM
Requesting Provider: Hospitalist
Performing Provider: Dr. Oneil
Reason for Consultation: Shortness of breath
Medical History
-
Chief Complaint: Shortness of breath
History of Present Illness:
88-year-old male with a history of metastatic urothelial cell carcinoma to the lungs on Keytruda/Padvec-received 2 doses, interstitial lung disease, recurrent atrial fibrillation status post recent ablation with subsequent cardioversion also just
discharged from the hospital after being treated for CHF preserved EF, amiodarone induced pulmonary toxicity followed locally and at [facility]-readmitted with persistent hypoxemia and pulmonary consulted for hypoxemia 02/18/2024. Patient states that he
went home and had increasing shortness of breath and noticed his pulse ox in the 80s and returned. He currently denies any chest pain, productive cough, pleurisy, hemoptysis, abdominal pain, leg swelling or weight gain.. He did not complain of any
fevers, chills
Past Medical History
Past Medical History: None (Urothelial cell carcinoma with metastatic disease on immunotherapy. CHF preserved EF. Diastolic CHF. 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 PAF/ablation/cardioversion. Chronic kidney disease. Nephrolithiasis. BPH.)
Past Surgical History: None (Atrial valve repair. Multiple ablations. Left ureterectomy. Hernia repair. Port placement.)
Social History
Tobacco: Former Smoker
Alcohol: None
Drug: None
Personal:
Living: With Family
Occupational Exposures: No known asbestos exposure
Environmental Exposures: No known tuberculosis exposure
Family History
Family History: Reviewed & Not Pertinent
Allergies / Home Medications
Allergies
Allergy/AdvReac Type Severity Reaction Status Date / Time
No Known Allergies Allergy Verified 02/17/24 16:45
Home Medications
�Medication �Instructions �Recorded �Confirmed �Last Taken �Type
finasteride 5 mg tablet 5 mg PO HS prostate 05/25/10 02/17/24 02/16/24 History
simvastatin 10 mg tablet 10 mg PO HS High cholesterol 09/04/19 02/17/24 02/16/24 History
apixaban 5 mg tablet (Eliquis) 5 mg PO BID Blood Clot 01/26/24 02/17/24 02/17/24 Rx
Prevention/Tx #0 tabs
dofetilide 250 mcg capsule 250 mcg PO Q12 Arrhythmia 30 days 01/26/24 02/17/24 02/17/24 Rx
#60 caps
furosemide 20 mg tablet 20 mg PO DAILY Heart Failure 30 01/26/24 02/17/24 02/17/24 Rx
days #30 tabs
metoprolol succinate 25 mg 25 mg PO DAILY Arrhythmia 30 days 01/26/24 02/17/24 02/17/24 Rx
tablet,extended release 24 hr #30 tabs
prednisone 10 mg tablet See Rx Instructions .Route 01/26/24 02/17/24 02/17/24 Rx
.COMPLEX #140 tabs 30 mg
dapsone 25 mg tablet 50 mg PO DAILY 02/17/24 02/17/24 02/17/24 History
Review of Systems
-
Unable to Obtain full review of systems at this time due to: Other (Per HPI)
Vitals / Labs / Diagnostic Testing
Vital Signs
Temp Pulse Resp BP Pulse Ox
97.5 F 81 20 137/84 90
02/18/24 07:54 02/18/24 08:07 02/18/24 07:54 02/18/24 08:07 02/18/24 08:00
Lab Data
02/18/24 05:08
02/18/24 05:08
Microbiology
02/17/24 17:05 Nasal Swab Influenza Types A & B (MIO) - Final
Negative for Influenza A & B, NAAT
Negative results must be combined with clinical observations
and patient history.
Nucleic Acid Amplification test (NAAT)performed on the
[employer] platform.
Diagnostic Testing:
Physical Exam
-
Exam:
Well-nourished and well-developed in no apparent distress
HEENT-atraumatic, normocephalic
Neck-supple, no JVD, no bruit
Heart-regular rate and rhythm-no murmurs, rubs or gallops
Chest with crackles at the bases and no wheezes
Back without tenderness
Abdomen-soft, nontender, nondistended, no hepatosplenomegaly
Extremities-no cyanosis, clubbing, edema and good peripheral pulses
Integument-intact, no rashes, lesions or ecchymosis
Neurology-alert and oriented, nonfocal motor and sensory exam
Assessment
-
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
after being treated for CHF preserved EF, amiodarone induced pulmonary toxicity followed locally and at [facility]-readmitted with persistent hypoxemia and pulmonary consulted for hypoxemia 02/18/2024.
Respiratory failure-acute on top of chronic jrhayseqc-gftmssbtwerbhe-laergy, interstitial lung disease, possible pneumonia
Interstitial lung disease-amiodarone versus Keytruda
Chronic CHF-preserved EF
PAF
Buyjns-pqupebtdon-qpbwnqxbty 11.8
Thrombocytopenia-platelet 92
Hyperglycemia
JUAN
Mildly elevated troponin
Conditions present prior to admission:
Urothelial cell carcinoma with metastatic disease to the lungs status post bronchoscopy-[facility] October 2023 Elis on immunotherapy.
CHF preserved EF.
Diastolic CHF.
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
PAF/ablation x 3/failed sotalol/cardioversion.
Chronic kidney disease.
Nephrolithiasis.
BPH.
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 Left ureterectomy. Hernia repair. Port placement.
Plan
Respiratory decompensation likely multifactorial-known significant interstitial lung disease-amiodarone versus Keytruda on prednisone with possible volume or even bacterial pneumonia on bpa-fpeczfiznks-d-rays, CTs of the chest and abdomen as well as
PET scan over the last couple years are summarized below
Supplemental oxygen as needed
Assess discharge supplemental oxygen needs-he is unclear how 'high' FiO2 can be delivered on home supplemental oxygen
Aspiration precautions
Incentive spirometry
Mucolytic's if needed
Mucus clearing devices
Methylprednisolone initiated 40 mg IV every 6 hours-eventually changed to prednisone 60 mg with slow taper until evaluated by outside pulmonary
Off amiodarone
Hold Keytruda as may be contributing to interstitial lung disease
Follow radiographically
Check cultures
Sputum culture if able
Monitor radiographically
Procalcitonin unlikely to help but if negative then unlikely respiratory tract infection
Follow leukocytosis, temperature curve, etc.
Diuresis as tolerated
Monitor renal function, electrolytes, intake/output, lower extremity edema and weight
Replace electrolytes as needed
Atrial fibrillation rate control
Trend troponin
Monitor hemoglobin and platelet count
Transfuse as needed
Monitor blood sugar
Insulin supplementation as needed
DVT prophylaxis-on Eliquis
Nutrition
Early mobilization
Dr. Oneil updated at length-worrisome prognosis with repetitive hospitalizations and increased FiO2 requirements, told for the time being off amiodarone/Keytruda, told likely lqyclvqyckacit-ciaw-iietrvn interstitial lung disease, possible
fluid, possible pneumonia contributing to progressive hypoxemia
Outpatient pulmonary follow-up
Diagnostic data:
Chest x-ray 02/16/2021-NAD
Chest x-ray 09/08/2023-moderate CHF
Chest x-ray 09/19/2023-stable interstitial and airspace opacifications
Chest x-ray 12/08/2023-bilateral interstitial opacifications suspecting chronic interstitial lung disease
Chest x-ray 01/18/2024-left lower lobe pneumonia superimposed on chronic interstitial infiltrates
Chest x-ray 02/09-bilateral pulmonary parenchymal opacifications with some improvement
Chest x-ray 02/17/2024-bilateral parenchymal opacifications slightly progressed in the left lung and in the right lower lung possibly minimal superimposed alveolar component, at least a component of findings may be chronic
CT chest 05/03/2021-no significant acute abnormalities, 2 adjacent solid nodules measuring 7 mm not changed since 2019
CT abdomen-small filling defects within the left renal pelvis suspicious for upper urinary tract malignancy, lung bases subsegmental atelectasis
CT abdomen and pelvis 02/06/2023-nonobstructing right renal stone, lung bases are clear
CT abdomen and pelvis 08/06/2023-lung bases minimal bilateral pleural effusions, interstitial edema in the lung bases, post left nephrectomy, nonobstructing right nephrolithiasis
CT chest 09/12/2023-widespread prominence of pulmonary interstitium and new widespread areas of groundglass opacifications, mild mediastinal lymphadenopathy
CT chest 11/27/2023-oblong left upper lobe mass measuring 3.[address] chest 01/25/2024-scattered foci of acute pneumonitis superimposed on chronic changes of interstitial lung disease,
PET scan 11/14/2023-activity seen in presumed urinary bladder/prostate defect from prior surgery likely physiologic, mild FDG uptake lesion upper lobe of the lung, minimal FDG uptake lower lobes of the lungs likely inflammatory
Data Reviewed
-
PFT: Report reviewed by me
EKG: Report reviewed by me
Radiology: Image personally visualized and interpreted and Report reviewed by me
CT Scan: Image personally visualized and interpreted and Report reviewed by me
Medical Tests (Nuc Med, Echo etc): Report reviewed by me
Labs: Labs reviewed by me
Old Records: Reviewed
Total Time Spent with Patient (in minutes): 65
--- NOTE | 2024-02-18 11:13 | PTCARENOTE ---
Pt desat after walking, sitting up in chair O2 83% on 5L oxygen bumped up to 6L and respiratory notified for assessment of increase of oxygen. MD DO notified of new changes. MD at bedside assessing patient, Patient denies feeling SOB but states he
feels foggy. patient was placed on 10L high flow with O2 sat 86%. Patient to be moved to IMU. Patient placed on non rebreather, O2 sat 90%
--- NOTE | 2024-02-18 11:25 | RESPNOTE ---
As per RN request changed patient's oxygen device from N/C to a 10 L Midflow Cannula, but he was still desaturating. Physician recommended for a NRB mask to keep the SpO2 89%. Patient is on NRB mask now saturating 90% on 15 L. Will continue to
monitor.
[2024-02-18] MEDS: SOLU-MEDROL PF 125 MG IV (11:33)
[2024-02-18] MEDS: LASIX 20 MG PO (16:03)
--- NOTE | 2024-02-18 16:11 | CM ---
manager floral reviewed patient's chart and met with patient and patient lives with his spouse in a multilevel home, 2 steps to enter, with an elevator in home, patient is independent with adl's and ambulation, patient has home oxygen from [facility] at 3-4 liters, patient is current with [facility] and plan is to home with spouse and [facility] when stable.
PCP: Brant Kruse
Pharmacy: [facility]
Plan; Home with [facility] when stable.
[2024-02-18] MEDS: SOLU-MEDROL PF 40 MG IV (18:31)
[2024-02-18] MEDS: PROSCAR 5 MG PO (20:12)
[2024-02-18] MEDS: LIPITOR 10 MG PO (20:12)
--- NOTE | 2024-02-18 23:54 | PTCARENOTE ---
2250: Report received from ETHEL Noyola. upon rounding patient resting in bed, eyes closed, respirations even and unlabored. on 8l midflow, sp02 96%. call alexandre within reach.
[2024-02-19] VITALS (12 sets, daily range): BP systolic 94–136; BP diastolic 76–95; BMI 26.6
[2024-02-19] MEDS: SOLU-MEDROL PF 40 MG IV ×4 (00:43→18:13)
[2024-02-19 07:03] LABS: Blood Urea Nitrogen 35 mg/dl (9-20); Calcium 8.4 mg/dl (8.4-10.2); Carbon Dioxide 26 mmol/L (22-30); Chloride 104 mmol/L (98-107); Estimated Creatinine Clearance 54 ml/min; Glucose 157 mg/dl (70-99); Potassium 4.3 mmol/L (3.5-5.1); Sodium 138 mmol/L (135-145); eGFR > 60.00
[2024-02-19 07:35] LABS: Hematocrit 37.6 % (39.0-52.0); Hemoglobin 12.7 g/dL (13.0-18.0); Mean Corp Hgb Conc. 33.8 g/dL (33.0-37.0); Mean Corpuscular Hgb 31.8 pg (27.0-31.0); Mean Corpuscular Volume 94.2 fL (80.0-94.0); Mean Platelet Volume 10.3 fL (7.4-10.4); Platelet Count 112 10^3/uL (130-400); Red Blood Cell Count 3.99 10^6/uL (4.70-6.10); Red Cell Dist. Width 15.4 % (11.5-14.5); White Blood Cell Count 8.3 10^3/uL (4.8-10.8)
[2024-02-19] MEDS: TIKOSYN 250 MCG PO ×2 (08:56→20:13)
[2024-02-19] MEDS: TOPROL XL 12.5 MG PO (08:56)
[2024-02-19] MEDS: LASIX 20 MG PO ×2 (08:57→09:12)
[2024-02-19] MEDS: ELIQUIS 5 MG PO ×2 (08:57→20:13)
[2024-02-19] MEDS: DAPSONE 50 MG PO (08:57)
--- NOTE | 2024-02-19 09:03 | W.PN.HOSP.TC ---
Today's Communication/Plan
-
see bold
Assessment / Plan
Assessment / Plan
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
just discharged from the hospital after being treated for CHF preserved EF, amiodarone induced pulmonary toxicity followed locally and at [facility]-readmitted with persistent hypoxemia and pulmonary consulted for hypoxemia 02/18/2024. Patient states that
he went home and had increasing shortness of breath and noticed his pulse ox in the 80s and returned.
Acute on Chronic Hypoxemic Respiratory Failure
ILD exacerbation
Amiodarone induced pulmonary toxicity
- Has been on 3 L since 01/17/2024
- Was satting in the low 80s on 5 L
- Appreciate pulmonology input, poor prognosis, continue high-dose IV Solu-Medrol
- Monitor off of antibiotics. Currently on 8 L of oxygen, wean as tolerated
- Consult palliative care for goals of care
Paroxysmal Atrial Fibrillation
- Continue Tikosyn and Eliquis
Chronic HFpEF
- Increase Lasix to 40 mg daily, patient takes 20 mg daily at home
JUAN on CKD III
- JUAN resolved, resumed Lasix
Urothelial Cancer
- Recently stopped Keytruda due to worsening ILD / hypoxemia.
- On outpatient chemo regimen.
- Follow-up with Oncology as an outpatient.
DVT Prophylaxis: On Eliquis
Code Status: Full
Total time spent to see the patient on the floor, examine the patient, review data and lab results, discuss treatment plan with patient, nursing staff around 40 minutes.
Physical Exam
General: No acute distress
HEENT: Normocephalic, Atraumatic, EOMI, MMM
Respiratory: Bibasilar crackles
Cardiac: Normal S1/S2, Regular Rate and Rhythm
GI: Soft, Nontender, Nondistended, Normal Bowel Sounds
Extremities: No Clubbing, Cyanosis, or Edema
Neuro: Nonfocal/Grossly Intact
Psych: Calm, Cooperative
Anticipated Discharge: > 48 hours
Subjective/Interval History
-
Date of Service: February 19, 2024
Patient denies chest pain, denies shortness of breath. No dyspnea with activity. He reports his fogginess has improved. No fever, no vomiting.
Objective Data
-
Labs:
Laboratory Results
02/19/24
06:25
WBC 8.3
Hgb 12.7 L
Hct 37.6 L
Plt Count 112 L D
Sodium 138
Potassium 4.3
Chloride 104
Carbon Dioxide 26
BUN 35 H
Creatinine 1.1
Glucose 157 H
Calcium 8.4
Vital Signs:
Vital Signs
Temp Pulse Resp BP Pulse Ox
97.8 F 74 21 136/91 95
02/19/24 03:33 02/19/24 06:00 02/19/24 06:00 02/19/24 06:00 02/19/24 06:00
I&O
02/18/24 02/19/24 02/20/24
06:59 06:59 06:59
Intake Total 240 / 240
Output Total 1650 / 1650
Balance 240 / 240 -1650 / -1650
--- NOTE | 2024-02-19 10:13 | W.PN.PUL.V3 ---
Today's Communication / Plan
-
No change in steroids
Wean FiO2
Gentle diuresis
Observe off antibiotics
Prognosis guarded-reviewed with and son
Assessment
-
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
after being treated for CHF preserved EF, amiodarone induced pulmonary toxicity followed locally and at [facility]-readmitted with persistent hypoxemia and pulmonary consulted for hypoxemia 02/18/2024.
Respiratory failure-acute on top of chronic astropbiq-gzunayopxqjjwx-hzijrz, interstitial lung disease, possible pneumonia
Interstitial lung disease-amiodarone versus Keytruda
Chronic CHF-preserved EF
PAF
Eatcna-yswkhnsfyt-thamebzafr 11.8
Thrombocytopenia-platelet 92
Hyperglycemia
JUAN
Mildly elevated troponin
Conditions present prior to admission:
Urothelial cell carcinoma with metastatic disease to the lungs status post bronchoscopy-[facility] October 2023 Lanfranco on immunotherapy.
CHF preserved EF.
Diastolic CHF.
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
PAF/ablation x 3/failed sotalol/cardioversion.
Chronic kidney disease.
Nephrolithiasis.
BPH.
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 Left ureterectomy. Hernia repair. Port placement.
Plan
Respiratory decompensation likely multifactorial-known significant interstitial lung disease-amiodarone versus Keytruda on prednisone with possible volume or even bacterial pneumonia on enf-gdlwtkohtrc-k-rays, CTs of the chest and abdomen as well as
PET scan over the last couple years are summarized below
Supplemental oxygen as needed
Assess discharge supplemental oxygen needs-he is unclear how 'high' FiO2 can be delivered on home supplemental oxygen
Aspiration precautions
Incentive spirometry encouraged
Mucolytic's if needed
Mucus clearing devices
Methylprednisolone initiated 40 mg IV every 6 hours-eventually changed to prednisone 60 mg with slow taper until evaluated by outside pulmonary-no change for now
Off amiodarone
Hold Keytruda as may be contributing to interstitial lung disease
Follow radiographically
Check cultures
Sputum culture if able-unable to produce
Influenza negative
Monitor radiographically
Procalcitonin unlikely to help but if negative then unlikely respiratory tract infection
Follow leukocytosis, temperature curve, etc.
Observe off antibiotics
Diuresis as tolerated--1650/24 hours
Monitor renal function, electrolytes, intake/output, lower extremity edema and weight
Replace electrolytes as needed
Atrial fibrillation rate control
Monitor hemoglobin and platelet count
Transfuse as needed
Monitor blood sugar
Insulin supplementation as needed
DVT prophylaxis-on Eliquis
Nutrition
Early mobilization
Dr. Oneil updated at length and both 02/18/2024 and again 02/19/2024-worrisome prognosis with repetitive hospitalizations and increased FiO2 requirements, told for the time being off amiodarone/Keytruda, told likely jauilvnfrnoqvn-pnjq-waruhbs
interstitial lung disease, possible fluid, possible pneumonia contributing to progressive hypoxemia
Dr. Oneil communicated with son as well and 02/19/2024 and is requesting that I speak to his njtear-gg-bfr which I am willing to
Outpatient pulmonary follow-up
Diagnostic data:
Chest x-ray 02/16/2021-NAD
Chest x-ray 09/08/2023-moderate CHF
Chest x-ray 09/19/2023-stable interstitial and airspace opacifications
Chest x-ray 12/08/2023-bilateral interstitial opacifications suspecting chronic interstitial lung disease
Chest x-ray 01/18/2024-left lower lobe pneumonia superimposed on chronic interstitial infiltrates
Chest x-ray 02/09-bilateral pulmonary parenchymal opacifications with some improvement
Chest x-ray 02/17/2024-bilateral parenchymal opacifications slightly progressed in the left lung and in the right lower lung possibly minimal superimposed alveolar component, at least a component of findings may be chronic
CT chest 05/03/2021-no significant acute abnormalities, 2 adjacent solid nodules measuring 7 mm not changed since 2019
CT abdomen-small filling defects within the left renal pelvis suspicious for upper urinary tract malignancy, lung bases subsegmental atelectasis
CT abdomen and pelvis 02/06/2023-nonobstructing right renal stone, lung bases are clear
CT abdomen and pelvis 08/06/2023-lung bases minimal bilateral pleural effusions, interstitial edema in the lung bases, post left nephrectomy, nonobstructing right nephrolithiasis
CT chest 09/12/2023-widespread prominence of pulmonary interstitium and new widespread areas of groundglass opacifications, mild mediastinal lymphadenopathy
CT chest 11/27/2023-oblong left upper lobe mass measuring 3.[address] chest 01/25/2024-scattered foci of acute pneumonitis superimposed on chronic changes of interstitial lung disease,
PET scan 11/14/2023-activity seen in presumed urinary bladder/prostate defect from prior surgery likely physiologic, mild FDG uptake lesion upper lobe of the lung, minimal FDG uptake lower lobes of the lungs likely inflammatory
Subjective Data
-
Date of Service:
Date of Service: February 19, 2024
Chief Complaint: Pulmonary Follow Up and Dyspnea Follow Up
Subjective:
Feels about the same, still marginal saturations, no chest pain, productive cough, abdominal pain
Review of Systems
General: Other (Per HPI)
Objective Data
Data Reviewed
Vital Signs / I&O:
Vital Signs
Temp Pulse Resp BP Pulse Ox
97.5 F 74 21 136/91 95
02/19/24 07:45 02/19/24 06:00 02/19/24 06:00 02/19/24 06:00 02/19/24 06:00
Intake and Output
02/18/24 02/19/24 02/20/24
06:59 06:59 06:59
Intake Total 240 / 240
Output Total 1650 / 1650
Balance 240 / 240 -1650 / -1650
SaO2: 95
Nasal Cannula flow liters per minute: 8
Physical Exam
General: Respiratory Distress (n) and Comfortable
HEENT: Normocephalic, Anicteric and Moist Mucous Membranes
Cardiovascular: Regular Rhythm and Murmur
Respiratory: Wheeze (n), Crackles (Bibasilar), Rhonchi (n), Non-Labored Respirations, Accessory Resp Muscle Use (n) and Stridor (n)
GI: Soft, Non Distended and Non Tender
Neurology: Awake, Alert and No Motor Deficits
Skin: Warm, Good Color, Cyanosis (n), Jaundice (n) and Rash (n)
Labs/Micro/Reports
Lab Data
02/19/24 06:25
02/19/24 06:25
Microbiology
02/17/24 17:05 Nasal Swab Influenza Types A & B (MIO) - Final
Negative for Influenza A & B, NAAT
Negative results must be combined with clinical observations
and patient history.
Nucleic Acid Amplification test (NAAT)performed on the
[employer] platform.
[2024-02-19] MEDS: FLUSH (NSS) 2 FLUSH IV ×2 (12:43→18:14)
--- NOTE | 2024-02-19 14:01 | PTCARENOTE ---
Assumed care of patient at beginning of this shift from previous RN with 8L midflow in use. POx 90-93% at rest, but decreased to 87-88% with minimal exertions. Reviewed strategies for conserving energy with activities. Patient very tearful when
discussing his health issues; emotional support provided. Lasix increased to 40mg po by Dr Vazquez; one time dose of 20mg given this morning in addition to the scheduled 20mg given with initial med pass. See worklist for full assessment and vital signs;
see MAR for med administration.
[2024-02-19] MEDS: LIPITOR 10 MG PO (20:13)
[2024-02-19] MEDS: PROSCAR 5 MG PO (20:13)
[2024-02-20] VITALS (12 sets, daily range): BP systolic 100–130; BP diastolic 38–101; BMI 25.9
[2024-02-20] MEDS: SOLU-MEDROL PF 40 MG IV ×5 (01:04→23:23)
[2024-02-20 06:06] LABS: % Basophils 0.2 % (0-2); % Immature Granulocytes 0.8 % (0-0.5); % Lymphocytes 7.2 % (20.5-51.1); % Monocytes 4.8 % (1.7-9.3); Absolute Immature Granulocytes 0.1 10^3/uL (0-0.05); Absolute Lymphocytes 0.7 10^3/uL (1.2-3.4); Absolute Monocytes 0.4 10^3/uL (0.1-0.6); Absolute Neutrophils 7.8 10^3/uL (1.4-6.5); Hematocrit 36.6 % (39.0-52.0); Hemoglobin 12.2 g/dL (13.0-18.0); Mean Corp Hgb Conc. 33.3 g/dL (33.0-37.0); Mean Corpuscular Volume 92.9 fL (80.0-94.0); Nucleated Red Blood Cells % 0 % (-); Platelet Count 106 10^3/uL (130-400); Red Blood Cell Count 3.94 10^6/uL (4.70-6.10); Red Cell Dist. Width 15.3 % (11.5-14.5)
[2024-02-20 06:46] LABS: Blood Urea Nitrogen 48 mg/dl (9-20); Calcium 8.3 mg/dl (8.4-10.2); Carbon Dioxide 29 mmol/L (22-30); Chloride 102 mmol/L (98-107); Estimated Creatinine Clearance 49 ml/min; Glucose 145 mg/dl (70-99); Potassium 4.4 mmol/L (3.5-5.1); Sodium 136 mmol/L (135-145); eGFR 58.89
[2024-02-20] MEDS: TIKOSYN 250 MCG PO ×2 (08:36→20:11)
[2024-02-20] MEDS: TOPROL XL 12.5 MG PO (08:36)
[2024-02-20] MEDS: ELIQUIS 5 MG PO ×2 (08:36→20:10)
[2024-02-20] MEDS: LASIX 40 MG PO (08:36)
[2024-02-20] MEDS: DAPSONE 50 MG PO (08:36)
--- NOTE | 2024-02-20 09:06 | W.PN.HOSP.TC ---
Today's Communication/Plan
-
see bold
Assessment / Plan
Assessment / Plan
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
just discharged from the hospital after being treated for CHF preserved EF, amiodarone induced pulmonary toxicity followed locally and at [facility]-readmitted with persistent hypoxemia and pulmonary consulted for hypoxemia 02/18/2024. Patient states that
he went home and had increasing shortness of breath and noticed his pulse ox in the 80s and returned.
Acute on Chronic Hypoxemic Respiratory Failure
ILD exacerbation
Amiodarone induced pulmonary toxicity
- Has been on 3 L since 01/17/2024
- Was satting in the low 80s on 5 L
- Appreciate pulmonology input, guarded prognosis, continue high-dose IV Solu-Medrol
- Monitor off of antibiotics. Currently on 8 L of oxygen, wean as tolerated
- Appreciate palliative care input, patient is considering changing his CODE STATUS from full code to DNR, he will get back to us
Paroxysmal Atrial Fibrillation
- Continue Tikosyn and Eliquis
Chronic HFpEF
- Increase Lasix to 40 mg daily, patient takes 20 mg daily at home
JUAN on CKD III
- JUAN resolved, resumed Lasix
Urothelial Cancer
- Recently stopped Keytruda due to worsening ILD / hypoxemia.
- On outpatient chemo regimen.
- Follow-up with Oncology as an outpatient.
DVT Prophylaxis: On Eliquis
Code Status: Full
Total time spent to see the patient on the floor, examine the patient, review data and lab results, discuss treatment plan with patient, nursing staff around 41 minutes.
Physical Exam
General: No acute distress
HEENT: Normocephalic, Atraumatic, EOMI, MMM
Respiratory: Bibasilar crackles
Cardiac: Normal S1/S2, Regular Rate and Rhythm
GI: Soft, Nontender, Nondistended, Normal Bowel Sounds
Extremities: No Clubbing, Cyanosis, or Edema
Neuro: Nonfocal/Grossly Intact
Psych: Calm, Cooperative
Anticipated Discharge: > 48 hours
Subjective/Interval History
-
Date of Service: February 20, 2024
Patient denies shortness of breath, no chest pain. He feels less foggy. No fever, no vomiting.
Objective Data
-
Labs:
Laboratory Results
02/20/24
05:54
WBC 9.0
Hgb 12.2 L
Hct 36.6 L
Plt Count 106 L
Sodium 136
Potassium 4.4
Chloride 102
Carbon Dioxide 29
BUN 48 H
Creatinine 1.2
Glucose 145 H
Calcium 8.3 L
Vital Signs:
Vital Signs
Temp Pulse Resp BP Pulse Ox
97.5 F 79 23 109/81 90
02/20/24 07:20 02/19/24 18:00 02/19/24 18:00 02/19/24 18:00 02/20/24 08:35
I&O
02/19/24 02/20/24 02/21/24
06:59 06:59 06:59
Output Total 1650 / 1650 1050 / 1050
Balance -1650 / -1650 -1050 / -1050
--- NOTE | 2024-02-20 10:28 | W.PN.PUL.V3 ---
Today's Communication / Plan
-
Attempt to wean FiO2
Continue steroids-no change
Updated
Assessment
-
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
after being treated for CHF preserved EF, amiodarone induced pulmonary toxicity followed locally and at [facility]-readmitted with persistent hypoxemia and pulmonary consulted for hypoxemia 02/18/2024.
Respiratory failure-acute on top of chronic iwojujuku-szwtacrbqpvuuv-bietez, interstitial lung disease, possible pneumonia
Interstitial lung disease-amiodarone versus Keytruda
Chronic CHF-preserved EF
PAF
Nevuos-ygjxuktaei-xhjwobhevs 11.8
Thrombocytopenia-platelet 92
Hyperglycemia
JUAN
Mildly elevated troponin
Conditions present prior to admission:
Urothelial cell carcinoma with metastatic disease to the lungs status post bronchoscopy-[facility] October 2023 Lanfranco on immunotherapy.
CHF preserved EF.
Diastolic CHF.
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
PAF/ablation x 3/failed sotalol/cardioversion.
Chronic kidney disease.
Nephrolithiasis.
BPH.
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 Left ureterectomy. Hernia repair. Port placement.
Plan
Respiratory decompensation likely multifactorial-known significant interstitial lung disease-amiodarone versus Keytruda on prednisone with possible volume or even bacterial pneumonia on tym-qfdjlrjehco-t-rays, CTs of the chest and abdomen as well as
PET scan over the last couple years are summarized below
Supplemental oxygen as needed
Assess discharge supplemental oxygen needs-he is unclear how 'high' FiO2 can be delivered on home supplemental oxygen
Aspiration precautions
Incentive spirometry encouraged
Mucolytic's if needed
Mucus clearing devices
Methylprednisolone initiated 40 mg IV every 6 hours-eventually changed to prednisone 60 mg with slow taper until evaluated by outside pulmonary-no change for now
Off amiodarone
Hold Keytruda as may be contributing to interstitial lung disease
Follow radiographically
Check cultures
Sputum culture if able-unable to produce
Influenza negative
Monitor radiographically
Procalcitonin unlikely to help but if negative then unlikely respiratory tract infection
Follow leukocytosis, temperature curve, etc.
Observe off antibiotics
Diuresis as tolerated--2650/48 hours
Monitor renal function, electrolytes, intake/output, lower extremity edema and weight
Replace electrolytes as needed
Follow chest x-ray-might obtain to see if progress
Atrial fibrillation rate control
Monitor hemoglobin and platelet count
Transfuse as needed
Monitor blood sugar
Insulin supplementation as needed
DVT prophylaxis-on Eliquis
Nutrition
Early mobilization
Dr. Oneil updated at length and both 02/18/2024 and again 02/19/2024 as well as 02/20/24-worrisome prognosis with repetitive hospitalizations and increased FiO2 requirements, told for the time being off amiodarone/Keytruda, told likely
ekbcygajvftaei-jgdu-rxafohx interstitial lung disease, possible fluid, possible pneumonia contributing to progressive hypoxemia
Dr. Oneil communicated with son as well and 02/19/2024 and is requesting that I speak to his rginon-cy-uiw which I am willing to-I called her and left detailed message on her answering machine
Outpatient pulmonary follow-up
Diagnostic data:
Chest x-ray 02/16/2021-NAD
Chest x-ray 09/08/2023-moderate CHF
Chest x-ray 09/19/2023-stable interstitial and airspace opacifications
Chest x-ray 12/08/2023-bilateral interstitial opacifications suspecting chronic interstitial lung disease
Chest x-ray 01/18/2024-left lower lobe pneumonia superimposed on chronic interstitial infiltrates
Chest x-ray 02/09-bilateral pulmonary parenchymal opacifications with some improvement
Chest x-ray 02/17/2024-bilateral parenchymal opacifications slightly progressed in the left lung and in the right lower lung possibly minimal superimposed alveolar component, at least a component of findings may be chronic
CT chest 05/03/2021-no significant acute abnormalities, 2 adjacent solid nodules measuring 7 mm not changed since 2019
CT abdomen-small filling defects within the left renal pelvis suspicious for upper urinary tract malignancy, lung bases subsegmental atelectasis
CT abdomen and pelvis 02/06/2023-nonobstructing right renal stone, lung bases are clear
CT abdomen and pelvis 08/06/2023-lung bases minimal bilateral pleural effusions, interstitial edema in the lung bases, post left nephrectomy, nonobstructing right nephrolithiasis
CT chest 09/12/2023-widespread prominence of pulmonary interstitium and new widespread areas of groundglass opacifications, mild mediastinal lymphadenopathy
CT chest 11/27/2023-oblong left upper lobe mass measuring 3.[address] chest 01/25/2024-scattered foci of acute pneumonitis superimposed on chronic changes of interstitial lung disease,
PET scan 11/14/2023-activity seen in presumed urinary bladder/prostate defect from prior surgery likely physiologic, mild FDG uptake lesion upper lobe of the lung, minimal FDG uptake lower lobes of the lungs likely inflammatory
Subjective Data
-
Date of Service:
Date of Service: February 20, 2024
Chief Complaint: Pulmonary Follow Up and Dyspnea Follow Up
Subjective:
Feels better, slept well, no increase secretions or increased cough, still marginal saturations on 8 L
Review of Systems
General: Other (Per HPI)
Objective Data
Data Reviewed
Vital Signs / I&O:
Vital Signs
Temp Pulse Resp BP Pulse Ox
97.5 F 79 23 109/81 90
02/20/24 07:20 02/19/24 18:00 02/19/24 18:00 02/19/24 18:00 02/20/24 08:35
Intake and Output
02/19/24 02/20/24 02/21/24
06:59 06:59 06:59
Output Total 1650 / 1650 1050 / 1050
Balance -1650 / -1650 -1050 / -1050
SaO2: 90
Nasal Cannula flow liters per minute: 8
Physical Exam
General: Respiratory Distress (n) and Comfortable
HEENT: Normocephalic, Anicteric and Moist Mucous Membranes
Cardiovascular: Regular Rhythm and Murmur
Respiratory: Wheeze (n), Crackles (Bibasilar), Rhonchi (n), Non-Labored Respirations, Accessory Resp Muscle Use (n) and Stridor (n)
GI: Soft, Non Distended and Non Tender
Neurology: Awake, Alert and No Motor Deficits
Skin: Warm, Good Color, Cyanosis (n), Jaundice (n) and Rash (n)
Labs/Micro/Reports
Lab Data
02/20/24 05:54
02/20/24 05:54
Microbiology
02/17/24 17:05 Nasal Swab Influenza Types A & B (MIO) - Final
Negative for Influenza A & B, NAAT
Negative results must be combined with clinical observations
and patient history.
Nucleic Acid Amplification test (NAAT)performed on the
[employer] platform.
--- NOTE | 2024-02-20 14:16 | W.CON.PAL ---
Consultation
-
Date/Time Consultation Requested: 02/19/2024
Date/Time Consultation Performed: 02/20/2024
Requesting Provider: Dr. Vazquez
Performing Provider: Dr. Molina
Reason for Consult: Goals of Care Discussion
Primary Diagnosis: IV urothelial cell carcinoma, Pulmonary fibrosis
Consult Requested By: Patient's Physician
Reason for Admission
Illness Course/HPI
Omari is a 88 y/o male admitted to hospital for dyspnea and hypoxia. he has a known history of IV metastatic urothelial cell cancer, who has had a steep decline in function since august 2023. Prior to that he describes himself as physically fit,
running, independent. 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 Since the summer he has had issues with heart rate - which he attributes to keytruda, then was put on amiodarone - which he believes contributed to development of pulmonary fibrosis. He has required
multiple cardioversions for afib. Was in the hospital in december and january for similar issues.
Prior to this hospitalization, he was still ambulatory and independent of personal care needs, but would fatigue, desaturate, and feel woozy within 10-12 steps of ambulation. was on 3L of oxygen at home. was on steroid taper at home as well.
Now on higher dose steroid, and 8L oxygen. he reports he is currently comfortable with respect to his breathing.
Functional Status
baseline 6 months ago - indepdenent
Currently - able to perform basic ADLs, limited by severe dyspnea. family helping with IADLs.
Lives in a 2 [address] home with , has in home elevator. has 3 sons that live nearby, (one son is the chief warden for the helicopter at )
Goals of Care Discussion
-
Individuals Present for Discussion & Relationship to Patient:
Patient
Patient able to participate in discussion at time of visit: Yes
Patient Goals
Patient reports that he is not planning for further cancer directed treatment.
Discussed palliative care and hospice services in detail. at this time, wants to start with palliative care outpatient and then transition to hospice care when care needs increase further.
Code status - he would prefer to be DNR, but he wants to talk it over with his family first so they are aware before he makes the decision to change this. he will inform.
Pain & Symptom Assessment
-
reports he is comfortable at this time.
Objective Data
-
Objective Data:
Vital Signs
Temp Pulse Resp BP Pulse Ox
97.5 F 83 20 113/97 90
02/20/24 07:20 02/20/24 12:00 02/20/24 12:00 02/20/24 12:00 02/20/24 12:00
Laboratory Results
02/20/24 05:54
02/20/24 05:54
Total Protein 6.1 g/dl (6.3-8.2) L 02/17/24 17:05
Albumin 3.5 g/dl (3.5-5.0) 02/17/24 17:05
Palliative Performance Scale
Palliative Performance Scale:
PPS Level Ambulation Activity & Evidence of Disease Self Care Intake Conscious Level
100% Full Normal Activity & Work; Full Intake Full
No Evidence of Disease
90% Full Normal Activity & Work; Full Normal Full
Some Evidence of Disease
80% Full Normal Activity with Effort Full Normal or Full
Some Evidence of Disease Reduced
70% Reduced Unable Normal Job/Work Full Normal or Full
Significant Disease Reduced
60% Reduced Unable Hobby/Housework Occasional Normal or Full or Confusion
Significant Disease Assistance Reduced
50% Mainly Sit/Lie Unable to do Any Work Considerable Normal or Full or Confusion
Extensive Disease Assistance Req'd Reduced
40% Mainly in Bed Unable to do Most Activity Mainly Assistance Normal or Full or Drowsy;
Extensive Disease Reduced +/- Confusion
30% Totally Bed Unable to do Any Activity Total Care Normal or Full or Drowsy;
Bound Extensive Disease Reduced +/- Confusion
20% Totally Bed Bound Unable to do Any Activity Total Care Minimal to Full or Drowsy;
Extensive Disease Sips +/- Confusion
10% Totally Bed Bound Unable to do Any Activity Total Care Mouth Care Drowsy or Coma;
Extensive Disease Only +/- Confusion
0%
PPS Score Level:
Palliative Performance Score Response
Palliative Performance Score Response: 50%
Physical Exam
-
General: Well Nourished, No Apparent Distress and Comfortable
Neuro: Awake, Alert and Oriented
Psych: Calm
Assessment / Plan
-
Assessment/Plan:
Agreable to outpatient palliative care with plan to transition to hospice when symptoms worsen
NO plan for further cancer directed treatment
Patient plans to discuss CPR question with family
Total floor time 60 min
--- NOTE | 2024-02-20 15:26 | PTCARENOTE ---
Patient remains on 8L midflow oxygen. [id number]%. SOB on minimal exertion. Lungs coarse with crackles at bases. IS at bedside. VS stable, afebrile.
--- NOTE | 2024-02-20 17:02 | CM ---
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 O2 8L. Receiving IV Steroids. PT & OT 02/17 recommend HH. Seen by Palliative Care.
Plan home with VN when medically ready.
[2024-02-20] MEDS: FLUSH (NSS) 2 FLUSH IV (18:01)
[2024-02-20] MEDS: LIPITOR 10 MG PO (20:10)
[2024-02-20] MEDS: PROSCAR 5 MG PO (20:10)
--- NOTE | 2024-02-20 20:33 | PTCARENOTE ---
Received pt from previous RN. Pt is AAOx3. NSR w/ PACs on the monitor. On 8L midflow, O2 sat 95%, lungs coarse/crackles/diminished. Pt sits/stands @ bedside to use the urinal. Pt asking about plan of care, pt is updated about plan of care and what
medications are being given at this time and what will be given throughout the shift. CHG bath provided. Pt is laying in bed with call alexandre in reach. Safe environment maintained.
[2024-02-21] VITALS (16 sets, daily range): BP systolic 103–156; BP diastolic 77–109; PULSE 84–88; BMI 25.8
[2024-02-21] MEDS: SOLU-MEDROL PF 40 MG IV ×3 (05:34→18:00)
[2024-02-21] MEDS: TOPROL XL 12.5 MG PO (08:43)
[2024-02-21] MEDS: DAPSONE 50 MG PO (08:43)
[2024-02-21] MEDS: LASIX 40 MG PO (08:44)
[2024-02-21] MEDS: TIKOSYN 250 MCG PO ×2 (08:44→21:42)
[2024-02-21] MEDS: ELIQUIS 5 MG PO ×2 (08:44→21:42)
--- NOTE | 2024-02-21 09:06 | W.PN.HOSP.TC ---
Today's Communication/Plan
-
see bold
Assessment / Plan
Assessment / Plan
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
just discharged from the hospital after being treated for CHF preserved EF, amiodarone induced pulmonary toxicity followed locally and at [facility]-readmitted with persistent hypoxemia and pulmonary consulted for hypoxemia 02/18/2024. Patient states that
he went home and had increasing shortness of breath and noticed his pulse ox in the 80s and returned.
Acute on Chronic Hypoxemic Respiratory Failure
ILD exacerbation
Amiodarone induced pulmonary toxicity
- Has been on 3 L since 01/17/2024
- Was satting in the low 80s on 5 L
- Appreciate pulmonology input, guarded prognosis, continue high-dose IV Solu-Medrol
- Monitor off of antibiotics. Currently on 6 L, down from 8 L of oxygen, wean as tolerated
- Appreciate palliative care input, patient is considering changing his CODE STATUS from full code to DNR, he will get back to us
- Family would like second opinion from [place], discussed options and getting him there faster
Paroxysmal Atrial Fibrillation
- Continue Tikosyn and Eliquis
Chronic HFpEF
- Increase Lasix to 40 mg daily, patient takes 20 mg daily at home
JUAN on CKD III
- JUAN resolved, resumed Lasix
Urothelial Cancer
- Recently stopped Keytruda due to worsening ILD / hypoxemia.
- On outpatient chemo regimen.
- Follow-up with Oncology as an outpatient.
DVT Prophylaxis: On Eliquis
Code Status: Full
Updated family at bedside 02/20
Total time spent to see the patient on the floor, examine the patient, review data and lab results, discuss treatment plan with patient, nursing staff around 51 minutes.
Physical Exam
General: No acute distress
HEENT: Normocephalic, Atraumatic, EOMI, MMM
Respiratory: Bibasilar crackles
Cardiac: Normal S1/S2, Regular Rate and Rhythm
GI: Soft, Nontender, Nondistended, Normal Bowel Sounds
Extremities: No Clubbing, Cyanosis, or Edema
Neuro: Nonfocal/Grossly Intact
Psych: Calm, Cooperative
Anticipated Discharge: > 48 hours
Subjective/Interval History
-
Date of Service: February 21, 2024
Patient seen and examined with family at bedside. Fogginess resolved. No chest pain, no shortness of breath. No fever, no vomiting.
Objective Data
-
Vital Signs:
Vital Signs
Temp Pulse Resp BP Pulse Ox
97.9 F 87 19 159/106 93
02/21/24 03:01 02/21/24 08:44 02/21/24 06:00 02/21/24 08:44 02/21/24 07:41
I&O
02/20/24 02/21/24 02/22/24
06:59 06:59 06:59
Intake Total 1585 / 1585
Output Total 1050 / 1050 2500 / 2500
Balance -1050 / -1050 -915 / -915
--- NOTE | 2024-02-21 09:20 | W.PN.PUL.V3 ---
Today's Communication / Plan
-
No change in steroids
Wean FiO2
Gentle diuresis
Screening family requesting
Family requesting potential transfer-explained that unlikely he would be excepted as there is nothing else that they could offer, as well as hospital census extremely high, even if there was an accepting physician on the other end it would take days
to complete the transfer
Other option is stabilized and the best that we can-he has an appointment next Sunday in the family taken down there for Dr Dixon appointment
Assessment
-
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
after being treated for CHF preserved EF, amiodarone induced pulmonary toxicity followed locally and at [facility]-readmitted with persistent hypoxemia and pulmonary consulted for hypoxemia 02/18/2024.
Respiratory failure-acute on top of chronic qbtgjusio-lgiwztwqyxowfx-egpdlp, interstitial lung disease, possible pneumonia
Interstitial lung disease-amiodarone versus Keytruda
Chronic CHF-preserved EF
PAF
Mejpaf-emseipzyum-pzgdbzdqmh 11.8
Thrombocytopenia-platelet 92
Hyperglycemia
JUAN
Mildly elevated troponin
Conditions present prior to admission:
Urothelial cell carcinoma with metastatic disease to the lungs status post bronchoscopy-[facility] October 2023 Elis on immunotherapy.
CHF preserved EF.
Diastolic CHF.
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
PAF/ablation x 3/failed sotalol/cardioversion.
Chronic kidney disease.
Nephrolithiasis.
BPH.
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 Left ureterectomy. Hernia repair. Port placement.
Plan
Respiratory decompensation likely multifactorial-known significant interstitial lung disease-amiodarone versus Keytruda on prednisone with possible volume or even bacterial pneumonia on bug-kuhhlsvvrei-w-rays, CTs of the chest and abdomen as well as
PET scan over the last couple years are summarized below
Supplemental oxygen as needed-currently on 6 L-down from 8 L
Assess discharge supplemental oxygen needs-he is unclear how 'high' FiO2 can be delivered on home supplemental oxygen
Aspiration precautions
Incentive spirometry encouraged
Mucolytic's if needed
Mucus clearing devices
Methylprednisolone initiated 40 mg IV every 6 hours-eventually changed to prednisone 60 mg with slow taper until evaluated by outside pulmonary-no change for now
Off amiodarone
Hold Keytruda as may be contributing to interstitial lung disease
Follow radiographically
Check cultures
Sputum culture if able-unable to produce
Influenza negative
Monitor radiographically
Procalcitonin unlikely to help but if negative then unlikely respiratory tract infection
Follow leukocytosis, temperature curve, etc.
Observe off antibiotics
Diuresis as tolerated--2650/48 hours
Monitor renal function, electrolytes, intake/output, lower extremity edema and weight
Replace electrolytes as needed
Follow chest x-ray-might obtain to see if progress
Atrial fibrillation rate control
Monitor hemoglobin and platelet count
Transfuse as needed
Monitor blood sugar
Insulin supplementation as needed
DVT prophylaxis-on Eliquis
Nutrition
Physical therapy as tolerated
Reviewed with hospitalist
Palliative care consult noted-patient wants to have palliative care as an outpatient and would prefer to be DNR-he wants to talk it over with his family first
Dr. Oneil updated at length and both 02/18/2024 and again 02/19/2024 as well as 02/20/24 as well as 02/21/2024-worrisome prognosis with repetitive hospitalizations and increased FiO2 requirements, told for the time being off amiodarone/Keytruda,
told likely rgwidbszvgeluh-qvjt-aancaoj interstitial lung disease, possible fluid, possible pneumonia contributing to progressive hypoxemia
Unfortunately it appears to me the is grasping at straws, always asking when he is going to turn around, explained that he may not improve and there may be a steady decline, hoping for the best, we will continue to afford emotional support
Dr. Oneil also updated son 02/21/2024 at length-family considering transfer to [place]-I will reach out to hospitalist-I told them realistically they may not accept as there is unlikely anything else they can offer
Also the patient has an appointment next Sunday with Dr. Holly Dixon-ILD expert
Dr. Oneil communicated with son as well and 02/19/2024 and is requesting that I speak to his [id number] which I am willing to-I called her and left detailed message on her answering machine
Outpatient pulmonary follow-up
Diagnostic data:
Chest x-ray 02/16/2021-NAD
Chest x-ray 09/08/2023-moderate CHF
Chest x-ray 09/19/2023-stable interstitial and airspace opacifications
Chest x-ray 12/08/2023-bilateral interstitial opacifications suspecting chronic interstitial lung disease
Chest x-ray 01/18/2024-left lower lobe pneumonia superimposed on chronic interstitial infiltrates
Chest x-ray 02/09-bilateral pulmonary parenchymal opacifications with some improvement
Chest x-ray 02/17/2024-bilateral parenchymal opacifications slightly progressed in the left lung and in the right lower lung possibly minimal superimposed alveolar component, at least a component of findings may be chronic
CT chest 05/03/2021-no significant acute abnormalities, 2 adjacent solid nodules measuring 7 mm not changed since 2019
CT abdomen-small filling defects within the left renal pelvis suspicious for upper urinary tract malignancy, lung bases subsegmental atelectasis
CT abdomen and pelvis 02/06/2023-nonobstructing right renal stone, lung bases are clear
CT abdomen and pelvis 08/06/2023-lung bases minimal bilateral pleural effusions, interstitial edema in the lung bases, post left nephrectomy, nonobstructing right nephrolithiasis
CT chest 09/12/2023-widespread prominence of pulmonary interstitium and new widespread areas of groundglass opacifications, mild mediastinal lymphadenopathy
CT chest 11/27/2023-oblong left upper lobe mass measuring 3.[address] chest 01/25/2024-scattered foci of acute pneumonitis superimposed on chronic changes of interstitial lung disease,
PET scan 11/14/2023-activity seen in presumed urinary bladder/prostate defect from prior surgery likely physiologic, mild FDG uptake lesion upper lobe of the lung, minimal FDG uptake lower lobes of the lungs likely inflammatory
Subjective Data
-
Date of Service:
Date of Service: February 21, 2024
Chief Complaint: Pulmonary Follow Up and Dyspnea Follow Up
Subjective:
Overall feels a little better, FiO2 weaned to 6 L, no productive cough, no chest pain or abdominal pain
Review of Systems
General: Other (Per HPI)
Objective Data
Data Reviewed
Vital Signs / I&O:
Vital Signs
Temp Pulse Resp BP Pulse Ox
97.6 F 87 19 159/106 93
02/21/24 07:20 02/21/24 08:44 02/21/24 06:00 02/21/24 08:44 02/21/24 07:41
Intake and Output
02/20/24 02/21/24 02/22/24
06:59 06:59 06:59
Intake Total 1585 / 1585 240 / 240
Output Total 1050 / 1050 2500 / 2500 300 / 300
Balance -1050 / -1050 -915 / -915 -60 / -60
SaO2: 93
Nasal Cannula flow liters per minute: 8
Physical Exam
General: Respiratory Distress (n) and Comfortable
HEENT: Normocephalic, Anicteric and Moist Mucous Membranes
Cardiovascular: Regular Rhythm and Murmur
Respiratory: Wheeze (n), Crackles (Bibasilar), Rhonchi (n), Non-Labored Respirations, Accessory Resp Muscle Use (n) and Stridor (n)
GI: Soft, Non Distended and Non Tender
Neurology: Awake, Alert and No Motor Deficits
Skin: Warm, Good Color, Cyanosis (n), Jaundice (n) and Rash (n)
Labs/Micro/Reports
Lab Data
02/20/24 05:54
02/20/24 05:54
--- NOTE | 2024-02-21 12:13 | W.PN.PAL2 ---
Today's Communication
-
PC follow up visit, total floor time 30 mins
Met with patient. Breathing somewhat better, down to 6L. Still fatigued and unstable when standing. has been doing exercises when laying in bed. recommended sitting up duirng the day more. would encourage therapy eval. goals of care discussed.
patient would like to seek evaluation at [facility] for pulmonary options. not yet ready to consider hospice care. accepting home based palliative care on discharge.
no change to code status at this time.
Objective Data
-
Objective Data:
Vital Signs
Temp Pulse Resp BP Pulse Ox
97.6 F 93 15 159/106 88
02/21/24 07:20 02/21/24 10:00 02/21/24 10:00 02/21/24 08:44 02/21/24 10:12
Laboratory Results
02/20/24 05:54
02/20/24 05:54
Total Protein 6.1 g/dl (6.3-8.2) L 02/17/24 17:05
Albumin 3.5 g/dl (3.5-5.0) 02/17/24 17:05
Palliative Performance Scale
Palliative Performance Scale:
PPS Level Ambulation Activity & Evidence of Disease Self Care Intake Conscious Level
100% Full Normal Activity & Work; Full Intake Full
No Evidence of Disease
90% Full Normal Activity & Work; Full Normal Full
Some Evidence of Disease
80% Full Normal Activity with Effort Full Normal or Full
Some Evidence of Disease Reduced
70% Reduced Unable Normal Job/Work Full Normal or Full
Significant Disease Reduced
60% Reduced Unable Hobby/Housework Occasional Normal or Full or Confusion
Significant Disease Assistance Reduced
50% Mainly Sit/Lie Unable to do Any Work Considerable Normal or Full or Confusion
Extensive Disease Assistance Req'd Reduced
40% Mainly in Bed Unable to do Most Activity Mainly Assistance Normal or Full or Drowsy;
Extensive Disease Reduced +/- Confusion
30% Totally Bed Unable to do Any Activity Total Care Normal or Full or Drowsy;
Bound Extensive Disease Reduced +/- Confusion
20% Totally Bed Bound Unable to do Any Activity Total Care Minimal to Full or Drowsy;
Extensive Disease Sips +/- Confusion
10% Totally Bed Bound Unable to do Any Activity Total Care Mouth Care Drowsy or Coma;
Extensive Disease Only +/- Confusion
0%
PPS Score Level:
Palliative Performance Score Response
Palliative Performance Score Response: 40%
--- NOTE | 2024-02-21 14:46 | PTCARENOTE ---
Rec'd pt this AM. Anxious about prognosis but responsive to support. O2 sat continues to drop when pt is OOB, becomes tachypnic but will recover to goal 88% or above. Other VS stable.
[2024-02-21] MEDS: PROSCAR 5 MG PO (21:42)
[2024-02-21] MEDS: LIPITOR 10 MG PO (21:43)
[2024-02-22] VITALS (12 sets, daily range): BP systolic 97–140; BP diastolic 71–97; BMI 25.4
[2024-02-22] MEDS: SOLU-MEDROL PF 40 MG IV ×4 (00:59→17:58)
--- NOTE | 2024-02-22 02:02 | PTCARENOTE ---
Caring for pt overnight. aaox3, pleasant, denies pain. NSR PAC on monitor. Remains on 6LMF, desat if moving around too much. No other issues at this time, will continue to try to wean o2. IV steroids. Pt not oob yet during shift, using urinal on
side of bed. Pt asleep, call alexandre in reach. Will monitor.
[2024-02-22 05:47] LABS: Blood Urea Nitrogen 57 mg/dl (9-20); Calcium 8.3 mg/dl (8.4-10.2); Carbon Dioxide 32 mmol/L (22-30); Chloride 100 mmol/L (98-107); Estimated Creatinine Clearance 49 ml/min; Glucose 174 mg/dl (70-99); Potassium 4.3 mmol/L (3.5-5.1); Sodium 138 mmol/L (135-145); eGFR 58.89
[2024-02-22 07:38] LABS: Glucose - Point of Care 155 mg/dl (70-99)
--- NOTE | 2024-02-22 08:57 | W.PN.HOSP.TC ---
Today's Communication/Plan
-
see bold
Assessment / Plan
Assessment / Plan
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
just discharged from the hospital after being treated for CHF preserved EF, amiodarone induced pulmonary toxicity followed locally and at [facility]-readmitted with persistent hypoxemia and pulmonary consulted for hypoxemia 02/18/2024. Patient states that
he went home and had increasing shortness of breath and noticed his pulse ox in the 80s and returned.
Acute on Chronic Hypoxemic Respiratory Failure
ILD exacerbation
Amiodarone induced pulmonary toxicity
- Has been on 3 L since 01/17/2024. Was satting in the low 80s on 5 L on 02/18/24
- Appreciate pulmonology input, guarded prognosis, continue high-dose IV Solu-Medrol
- Monitor off of antibiotics. Currently on 6 L, down from 8 L of oxygen, wean as tolerated
- Appreciate palliative care input, patient is considering changing his CODE STATUS from full code to DNR, he will get back to us
- Family would like second opinion from [place], discussed options and getting him there faster
- Plan for dc on 02/25/24 home with oxygen do he can keep his pulm appt at [place] on 02/26/24
Paroxysmal Atrial Fibrillation
- Continue Tikosyn and Eliquis
Chronic HFpEF
- Increase Lasix to 40 mg daily, patient takes 20 mg daily at home
JUAN on CKD III
- JUAN resolved, resumed Lasix
Urothelial Cancer
- Recently stopped Keytruda due to worsening ILD / hypoxemia.
- On outpatient chemo regimen.
- Follow-up with Oncology as an outpatient.
DVT Prophylaxis: On Eliquis
Code Status: Full
Updated family at bedside 02/20
Total time spent to see the patient on the floor, examine the patient, review data and lab results, discuss treatment plan with patient, nursing staff around 41 minutes.
Physical Exam
General: No acute distress
HEENT: Normocephalic, Atraumatic, EOMI, MMM
Respiratory: Bibasilar crackles
Cardiac: Normal S1/S2, Regular Rate and Rhythm
GI: Soft, Nontender, Nondistended, Normal Bowel Sounds
Extremities: No Clubbing, Cyanosis, or Edema
Neuro: Nonfocal/Grossly Intact
Psych: Calm, Cooperative
Anticipated Discharge: > 48 hours
Subjective/Interval History
-
Date of Service: February 22, 2024
Feels foggy today. No SOB/ACUÑA, CP. No fever, no vomiting.
Objective Data
-
Labs:
Laboratory Results
02/22/24
05:04
Sodium 138
Potassium 4.3
Chloride 100
Carbon Dioxide 32 H
BUN 57 H
Creatinine 1.2
Glucose 174 H
Calcium 8.3 L
Vital Signs:
Vital Signs
Temp Pulse Resp BP Pulse Ox
97.7 F 74 20 126/97 95
02/22/24 07:00 02/22/24 04:02 02/22/24 04:02 02/22/24 04:02 02/22/24 04:02
I&O
02/21/24 02/22/24 02/23/24
06:59 06:59 06:59
Intake Total 1585 / 1585 720 / 720
Output Total 2500 / 2500 1200 / 1200 350 / 350
Balance -915 / -915 -480 / -480 -350 / -350
[2024-02-22] MEDS: TOPROL XL 12.5 MG PO (09:53)
[2024-02-22] MEDS: DAPSONE 50 MG PO (09:53)
[2024-02-22] MEDS: LASIX 40 MG PO (09:53)
[2024-02-22] MEDS: TIKOSYN 250 MCG PO ×2 (09:54→20:40)
[2024-02-22] MEDS: ELIQUIS 5 MG PO ×2 (09:54→20:41)
--- NOTE | 2024-02-22 09:55 | W.PN.PUL.V3 ---
Today's Communication / Plan
-
converted to prednisone 60 mg daily in the next 24-48 hours.
Increase activity.
Attempt to wean FiO2.
Consider discharge in the next 48-72 hours with outpatient [facility]-interstitial lung disease expert appointment next Sunday
Assessment
-
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
after being treated for CHF preserved EF, amiodarone induced pulmonary toxicity followed locally and at [facility]-readmitted with persistent hypoxemia and pulmonary consulted for hypoxemia 02/18/2024.
Respiratory failure-acute on top of chronic ldsyjauth-meibmkmjpdcmht-ryzovs, interstitial lung disease, possible pneumonia
Interstitial lung disease-amiodarone versus Keytruda
Chronic CHF-preserved EF
PAF
Eknbfg-rgcjtltwtz-oirmejggmc 11.8
Thrombocytopenia-platelet 92
Hyperglycemia
JUAN
Mildly elevated troponin
Conditions present prior to admission:
Urothelial cell carcinoma with metastatic disease to the lungs status post bronchoscopy-[facility] October 2023 Lanfrrefugioo on immunotherapy.
CHF preserved EF.
Diastolic CHF.
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
PAF/ablation x 3/failed sotalol/cardioversion.
Chronic kidney disease.
Nephrolithiasis.
BPH.
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 Left ureterectomy. Hernia repair. Port placement.
Plan
Respiratory decompensation likely multifactorial-known significant interstitial lung disease-amiodarone versus Keytruda on prednisone with possible volume or even bacterial pneumonia on cpx-flvplefrcoi-r-rays, CTs of the chest and abdomen as well as
PET scan over the last couple years are summarized below
Respiratory status relatively stable-perhaps slight improvement with reduction in FiO2 requirements
Supplemental oxygen as needed-currently on 6 L-down from 8 L
Assess discharge supplemental oxygen needs-he is unclear how 'high' FiO2 can be delivered on home supplemental oxygen-would like [employer] to supply up to 10 L just in case
Aspiration precautions
Incentive spirometry encouraged
Mucolytic's if needed
Mucus clearing devices
Methylprednisolone initiated 40 mg IV every 6 hours--consider changing to prednisone 60 mg in the next 24 hours with slow taper until evaluated by outside pulmonary-no change for now
Off amiodarone
Hold Keytruda as may be contributing to interstitial lung disease.
Chest x-ray 02/21/24-no significant change-no better, no worse
Cultures reviewed
Sputum culture if able-unable to produce
Influenza negative
Monitor radiographically
Procalcitonin unlikely to help but if negative then unlikely respiratory tract infection
Follow leukocytosis, temperature curve, etc.
Observe off antibiotics
Diuresis as tolerated-- 3500 mL/72 hours
Monitor renal function, electrolytes, intake/output, lower extremity edema and weight
Replace electrolytes as needed
Atrial fibrillation rate control
Monitor hemoglobin and platelet count
Transfuse as needed
Monitor blood sugar
Insulin supplementation as needed
DVT prophylaxis-on Eliquis
Nutrition
Physical therapy as tolerated.
There was a request for potential direct Hospital Hospital. Transfer-explain unrealistic-need except a physician, unlikely there is something they can offer that we cannot and hospitals on diaper and would be along weight-best alternative is
patient has an appointment next Sunday with ILD expert Dr Dixon--- to stabilize, discharge on 6 L of oxygen and make that outpatient appointment at [facility] on Sunday-Dr. Oneil reviewed this plan with patient, , son, and primary service
Reviewed with hospitalist
Palliative care consult noted-patient wants to have palliative care as an outpatient and would prefer to be DNR-he wants to talk it over with his family first
Family updates:
Dr. Oneil updated at length and both 02/18/2024,02/19/2024 , 02/20/24, 02/21/2024 as well as 02/22/24-worrisome prognosis with repetitive hospitalizations and increased FiO2 requirements, told for the time being off amiodarone/Keytruda, told
likely ppffdnaszunbfi-mjpy-qxjyvji interstitial lung disease, possible fluid, possible pneumonia contributing to progressive hypoxemia
Unfortunately it appears to me the is grasping at straws, always asking when he is going to turn around, explained that he may not improve and there may be a steady decline, hoping for the best, we will continue to afford emotional support
Dr. Oneil also updated son 02/21/2024 at length-family considering transfer to [place]-I will reach out to hospitalist-I told them realistically they may not accept as there is unlikely anything else they can offer
Also the patient has an appointment next Sunday with Dr. Holly Dixon-ILD expert
Dr. Oneil communicated with son as well and 02/19/2024 and is requesting that I speak to his [id number] which I am willing to-I called her and left detailed message on her answering machine
Outpatient pulmonary follow-up
Diagnostic data:
Chest x-ray 02/16/2021-NAD
Chest x-ray 09/08/2023-moderate CHF
Chest x-ray 09/19/2023-stable interstitial and airspace opacifications
Chest x-ray 12/08/2023-bilateral interstitial opacifications suspecting chronic interstitial lung disease
Chest x-ray 01/18/2024-left lower lobe pneumonia superimposed on chronic interstitial infiltrates
Chest x-ray 02/09-bilateral pulmonary parenchymal opacifications with some improvement
Chest x-ray 02/17/2024-bilateral parenchymal opacifications slightly progressed in the left lung and in the right lower lung possibly minimal superimposed alveolar component, at least a component of findings may be chronic
CT chest 05/03/2021-no significant acute abnormalities, 2 adjacent solid nodules measuring 7 mm not changed since 2019
CT abdomen-small filling defects within the left renal pelvis suspicious for upper urinary tract malignancy, lung bases subsegmental atelectasis
CT abdomen and pelvis 02/06/2023-nonobstructing right renal stone, lung bases are clear
CT abdomen and pelvis 08/06/2023-lung bases minimal bilateral pleural effusions, interstitial edema in the lung bases, post left nephrectomy, nonobstructing right nephrolithiasis
CT chest 09/12/2023-widespread prominence of pulmonary interstitium and new widespread areas of groundglass opacifications, mild mediastinal lymphadenopathy
CT chest 11/27/2023-oblong left upper lobe mass measuring 3.[address] chest 01/25/2024-scattered foci of acute pneumonitis superimposed on chronic changes of interstitial lung disease,
PET scan 11/14/2023-activity seen in presumed urinary bladder/prostate defect from prior surgery likely physiologic, mild FDG uptake lesion upper lobe of the lung, minimal FDG uptake lower lobes of the lungs likely inflammatory
Subjective Data
-
Date of Service:
Date of Service: February 22, 2024
Chief Complaint: Pulmonary Follow Up and Dyspnea Follow Up
Subjective:
Feels about the same, no increased shortness of breath, no chest pain or abdominal pain
Review of Systems
General: Other ( or HPI)
Objective Data
Data Reviewed
Vital Signs / I&O:
Vital Signs
Temp Pulse Resp BP Pulse Ox
97.7 F 88 20 111/79 95
02/22/24 07:00 02/22/24 09:53 02/22/24 04:02 02/22/24 09:53 02/22/24 04:02
Intake and Output
02/21/24 02/22/24 02/23/24
06:59 06:59 06:59
Intake Total 1585 / 1585 720 / 720
Output Total 2500 / 2500 1200 / 1200 350 / 350
Balance -915 / -915 -480 / -480 -350 / -350
SaO2: 95
Nasal Cannula flow liters per minute: 6
Physical Exam
General: Respiratory Distress (n) and Comfortable
HEENT: Normocephalic, Anicteric and Moist Mucous Membranes
Cardiovascular: Regular Rhythm and Murmur
Respiratory: Wheeze (n), Crackles (Bibasilar), Rhonchi (n), Non-Labored Respirations, Accessory Resp Muscle Use (n) and Stridor (n)
GI: Soft, Non Distended and Non Tender
Neurology: Awake, Alert and No Motor Deficits
Skin: Warm, Good Color, Cyanosis (n), Jaundice (n) and Rash (n)
Labs/Micro/Reports
Lab Data
02/20/24 05:54
02/22/24 05:04
--- NOTE | 2024-02-22 14:15 | CM ---
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 O2 6L. Receiving IV Steroids. PT & OT recommend HH. Seen by Palliative Care.
Met with patient, Patience and son;
patient says told him he will need an O2 concentrator that goes up to 10L at home - his O2 provider is [employer]- CM agrees to order when closer to d/c.
Discussed possible need for hiring a caregiver at home; is interested but patient wants to wait and consider. He feels he has enough extra assistance from [facility] providers.
Patient is hoping for d/c prior to when he has a pulmonary appt at [facility].
Message to Dr Vazquez- patient will need home O2 assessment and updated O2 orders, and CM will be able to order 10L O2 concentrator.
Spoke with [employer]; they will be able to swap out the patient's existing O2 concentrator for 10L concentrator, and will need home O2 assessment and new O2 order sheet. They are available over the weekend to supply the O2 as needed.
Plan submit request to [employer] for 10L home O2 concentrator.
Plan home with [employer] and [employer]/10L O2 concentrator when medically ready.
--- NOTE | 2024-02-22 17:13 | RESPNOTE ---
Spoke with patient about ambulation pulse ox- patient stated he wears 3-5 liters at home but feels like he will need more. Currently on 6 liters in room 92-93%. Patient states that he feels very uneasy on his feet and would prefer if we arrange this
walk with PT, will attempt to do so tomorrow.
[2024-02-22] MEDS: LIPITOR 10 MG PO (20:41)
[2024-02-22] MEDS: PROSCAR 5 MG PO (20:41)
[2024-02-23] VITALS (15 sets, daily range): BP systolic 88–152; BP diastolic 69–97; PULSE 85; O2SAT 94; BMI 25.4
[2024-02-23] MEDS: SOLU-MEDROL PF 40 MG IV ×5 (00:08→23:31)
--- NOTE | 2024-02-23 03:33 | PTCARENOTE ---
Pt remaining on 6L NC, SPO2 95%. Pt oobx1, BRP. Pt had no complaints at this time. Call alexandre within reach. Assessment care and vitals as charted.
[2024-02-23] MEDS: DAPSONE 50 MG PO (08:13)
[2024-02-23] MEDS: TIKOSYN 250 MCG PO ×2 (08:14→21:02)
[2024-02-23] MEDS: ELIQUIS 5 MG PO ×2 (08:14→21:02)
[2024-02-23] MEDS: TOPROL XL 12.5 MG PO (08:14)
[2024-02-23] MEDS: LASIX 20 MG PO (08:15)
--- NOTE | 2024-02-23 09:00 | W.PN.HOSP.TC ---
Today's Communication/Plan
-
see bold
Assessment / Plan
Assessment / Plan
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
just discharged from the hospital after being treated for CHF preserved EF, amiodarone induced pulmonary toxicity followed locally and at [facility]-readmitted with persistent hypoxemia and pulmonary consulted for hypoxemia 02/18/2024. Patient states that
he went home and had increasing shortness of breath and noticed his pulse ox in the 80s and returned.
Acute on Chronic Hypoxemic Respiratory Failure
ILD exacerbation
Amiodarone induced pulmonary toxicity
- Has been on 3 L since 01/17/2024. Was satting in the low 80s on 5 L on 02/18/24
- Appreciate pulmonology input, guarded prognosis, continue high-dose IV Solu-Medrol
- Monitor off of antibiotics. Currently on 6 L, down from 8 L of oxygen, wean as tolerated
- Appreciate palliative care input, patient is considering changing his CODE STATUS from full code to DNR, he will get back to us
- Family would like second opinion from [place], discussed options and getting him there faster
- Plan for dc on 02/25/24 home with oxygen do he can keep his pulm appt at [place] on 02/26/24
Paroxysmal Atrial Fibrillation
- Continue Tikosyn and Eliquis
Chronic HFpEF
- Increase Lasix to 40 mg daily, patient takes 20 mg daily at home
JUAN on CKD III
- JUAN resolved, resumed Lasix
Urothelial Cancer
- Recently stopped Keytruda due to worsening ILD / hypoxemia.
- On outpatient chemo regimen.
- Follow-up with Oncology as an outpatient.
DVT Prophylaxis: On Eliquis
Code Status: Full
Updated family at bedside 02/20
Total time spent to see the patient on the floor, examine the patient, review data and lab results, discuss treatment plan with patient, nursing staff around 39 minutes.
Physical Exam
General: No acute distress
HEENT: Normocephalic, Atraumatic, EOMI, MMM
Respiratory: Bibasilar crackles
Cardiac: Normal S1/S2, Regular Rate and Rhythm
GI: Soft, Nontender, Nondistended, Normal Bowel Sounds
Extremities: No Clubbing, Cyanosis, or Edema
Neuro: Nonfocal/Grossly Intact
Psych: Calm, Cooperative
Anticipated Discharge: 24 - 48 hours
Subjective/Interval History
-
Date of Service: February 23, 2024
Patient denies shortness of breath, denies dyspnea with activity. No fever, no vomiting.
Objective Data
-
Vital Signs:
Vital Signs
Temp Pulse Resp BP Pulse Ox
97.7 F 84 27 102/96 92
02/23/24 07:15 02/23/24 08:14 02/23/24 08:06 02/23/24 08:14 02/23/24 08:06
I&O
02/22/24 02/23/24 02/24/24
06:59 06:59 06:59
Intake Total 720 / 720
Output Total 1200 / 1200 1250 / 1250
Balance -480 / -480 -1250 / -1250
--- NOTE | 2024-02-23 09:28 | W.PN.PUL3 ---
Today's Communication / Plan
-
Hopefully will convert to prednisone 60 mg daily in the next 24-48 hours.
Increase activity as tolerated
PT/OT - rec'd home health
Attempt to wean O2 flow rate to keep SpO2 >90-94%
Consider discharge in the next 24-48 hours with outpatient [facility]-interstitial lung disease expert appointment next Sunday
Assessment
-
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
after being treated for CHF preserved EF, amiodarone induced pulmonary toxicity followed locally and at [facility]-readmitted with persistent hypoxemia and pulmonary consulted for hypoxemia 02/18/2024.
Impression:
Respiratory failure-acute on top of chronic mngkwlkcc-givbiyqwoogviu-tvdvmz, interstitial lung disease, possible pneumonia
Interstitial lung disease-amiodarone versus Keytruda
Chronic CHF-preserved EF
PAF
Anemia
Thrombocytopenia
Hyperglycemia
JUAN
Mildly elevated troponin (0.057 on 02/17/2024)
Conditions present prior to admission:
Urothelial cell carcinoma with metastatic disease to the lungs status post bronchoscopy-[facility] October 2023 Lanfranco on immunotherapy.
CHF preserved EF.
Diastolic CHF.
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
PAF/ablation x 3/failed sotalol/cardioversion.
Chronic kidney disease.
Nephrolithiasis.
BPH.
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 Left ureterectomy. Hernia repair. Port placement.
Plan
Respiratory decompensation likely multifactorial-known significant interstitial lung disease-amiodarone versus Keytruda on prednisone with possible volume or even bacterial pneumonia on bqa-kzwythjzfio-l-rays, CTs of the chest and abdomen as well as
PET scan over the last couple years are summarized below
Respiratory status relatively stable-perhaps slight improvement with reduction in FiO2 requirements
Supplemental oxygen as needed-currently on 6 L-down from 8 L
Goal SpO2 >90-94%
Assess discharge supplemental oxygen needs-he is unclear how 'high' FiO2 can be delivered on home supplemental oxygen-would like [employer] to supply up to 10 L just in case
Check ambulatory pulse oximetry prior to discharge
Aspiration precautions
Incentive spirometry encouraged
Mucolytics if needed
Mucus clearing devices
Methylprednisolone initiated 40 mg IV every 6 hours--consider changing to prednisone 60 mg in the next 24 hours with slow taper until evaluated by outside pulmonary-no change for now
Continue dapsone for pcp ppx
Off amiodarone
Hold Keytruda as may be contributing to interstitial lung disease.
Chest x-ray 02/21/24-no significant change-no better, no worse compared to prior CXR on 02/17/2024
Prior cultures reviewed
Sputum culture if able-unable to produce
Influenza negative
Monitor radiographically
Procalcitonin unlikely to help but if negative then unlikely respiratory tract infection
Trend WBC; monitor fo fevers
Observe off antibiotics
Diuresis as tolerated
Monitor renal function, electrolytes, intake/output, lower extremity edema and weight
Replace electrolytes as needed
Atrial fibrillation rate control
Monitor hemoglobin and platelet count
Transfuse as needed to keep Hb>7
Monitor blood sugar with goal BG >100 and <180
Insulin supplementation as needed
DVT prophylaxis-on Eliquis
Nutrition
Physical therapy as tolerated.
There was a request for potential direct Hospital- Hospital transfer. Explained that this is unrealistic-needs an accepting physician, unlikely there is something they can offer that we cannot-best alternative is patient has an appointment next
Sunday with ILD expert Dr Dixon--- to stabilize, discharge on 6 L of oxygen and make that outpatient appointment at [facility] on Sunday-Dr. Oneil reviewed this plan with patient, , son, and primary service
Reviewed with hospitalist
Palliative care consult noted-patient wants to have palliative care as an outpatient and would prefer to be DNR-he wants to talk it over with his family first
Pulmonary service will continue to follow along while he remains hospitalized
Family updates:
Dr. Oneil updated at length and both 02/18/2024,02/19/2024 , 02/20/24, 02/21/2024 as well as 02/22/24-worrisome prognosis with repetitive hospitalizations and increased FiO2 requirements, told for the time being off amiodarone/Keytruda, told
likely dyrmdeeucfqrzt-qkwd-modrrgp interstitial lung disease, possible fluid, possible pneumonia contributing to progressive hypoxemia
Unfortunately it appears to me the is grasping at straws, always asking when he is going to turn around, explained that he may not improve and there may be a steady decline, hoping for the best, we will continue to afford emotional support
Dr. Oneil also updated son 02/21/2024 at length-family considering transfer to [place]-I will reach out to hospitalist-I told them realistically they may not accept as there is unlikely anything else they can offer
Also the patient has an appointment next Sunday with Dr. Holly Dixon-ILD expert
Dr. Oneil communicated with son as well and 02/19/2024 and is requesting that I speak to his [id number]-an-aio which I am willing to-I called her and left detailed message on her answering machine
Outpatient pulmonary follow-up
Diagnostic data:
Chest x-ray 02/16/2021-NAD
Chest x-ray 09/08/2023-moderate CHF
Chest x-ray 09/19/2023-stable interstitial and airspace opacifications
Chest x-ray 12/08/2023-bilateral interstitial opacifications suspecting chronic interstitial lung disease
Chest x-ray 01/18/2024-left lower lobe pneumonia superimposed on chronic interstitial infiltrates
Chest x-ray 02/09-bilateral pulmonary parenchymal opacifications with some improvement
Chest x-ray 02/17/2024-bilateral parenchymal opacifications slightly progressed in the left lung and in the right lower lung possibly minimal superimposed alveolar component, at least a component of findings may be chronic
CT chest 05/03/2021-no significant acute abnormalities, 2 adjacent solid nodules measuring 7 mm not changed since 2019
CT abdomen-small filling defects within the left renal pelvis suspicious for upper urinary tract malignancy, lung bases subsegmental atelectasis
CT abdomen and pelvis 02/06/2023-nonobstructing right renal stone, lung bases are clear
CT abdomen and pelvis 08/06/2023-lung bases minimal bilateral pleural effusions, interstitial edema in the lung bases, post left nephrectomy, nonobstructing right nephrolithiasis
CT chest 09/12/2023-widespread prominence of pulmonary interstitium and new widespread areas of groundglass opacifications, mild mediastinal lymphadenopathy
CT chest 11/27/2023-oblong left upper lobe mass measuring 3.[address] chest 01/25/2024-scattered foci of acute pneumonitis superimposed on chronic changes of interstitial lung disease,
PET scan 11/14/2023-activity seen in presumed urinary bladder/prostate defect from prior surgery likely physiologic, mild FDG uptake lesion upper lobe of the lung, minimal FDG uptake lower lobes of the lungs likely inflammatory
Total time spent today was 52 minutes for this encounter. Time includes reviewing laboratory test/imaging results, reviewing pertinent medical records, obtaining and reviewing medical history, performing an appropriate exam, ordering medications,
tests and procedures. Time also includes documentation of this encounter, coordinating patient care and communicating with other healthcare professionals. Total time does not include separately billed tests performed on this date of service.
Subjective Data
-
Date of Service:
Date of Service: February 23, 2024
Chief Complaint: Pulmonary Follow Up and Dyspnea Follow Up
Subjective:
Seen and evaluated today at bedside. Currently on 6 L/min, saturating 94%. Heart rate 82 and BP 102/69. He states he feels better, able to walk around the urrutia today without shortness of breath. Coughed up brown phlegm today. Denies chest pain,
ANDREW, abdominal pain, fevers or chills.
Review of Systems
General: Other (Negative unless mentioned above)
Objective Data
Data Reviewed
Vital Signs / I&O / Oxygen:
Vital Signs
Temp Pulse Resp BP Pulse Ox
97.7 F 84 27 102/96 92
02/23/24 07:15 02/23/24 08:14 02/23/24 08:06 02/23/24 08:14 02/23/24 08:06
Intake and Output
02/22/24 02/23/24 02/24/24
06:59 06:59 06:59
Intake Total 720 / 720
Output Total 1200 / 1200 1250 / 1250
Balance -480 / -480 -1250 / -1250
SaO2 92
Nasal Cannula flow liters per 6
minute
Physical Exam
General: Respiratory Distress (n), Comfortable, Chills (n) and Sweats (n)
HEENT: Normocephalic, Anicteric and Moist Mucous Membranes
Cardiovascular: Regular Rhythm, Murmur (DARIN heard across precordium) and Peripheral Edema (negative)
Respiratory: Wheeze (n), Crackles (Bibasilar (L >R)), Rhonchi (n), Non-Labored Respirations, Accessory Resp Muscle Use (n), Stridor (n) and Other (Diminished breath sounds at the left base)
GI: Soft, Non Distended, Non Tender and Normal Bowel Sounds
Neurology: AO x 3 and Tremors (negative)
Skin: Warm, Dry, Cyanosis (n), Jaundice (n) and Rash (n)
Labs/Micro/Reports
Lab Data
02/20/24 05:54
02/22/24 05:04
[2024-02-23] MEDS: LIPITOR 10 MG PO (21:02)
[2024-02-23] MEDS: PROSCAR 5 MG PO (21:03)
[2024-02-24] VITALS (13 sets, daily range): BP systolic 101–130; BP diastolic 69–96; O2SAT 90–91; BMI 25.5
--- NOTE | 2024-02-24 00:25 | PTCARENOTE ---
Pt had no complaints at this time. Pt on NC 6L SPO2 96%. Pt has some dyspnea on exertion, recuperates quickly.
[2024-02-24] MEDS: SOLU-MEDROL PF 40 MG IV ×4 (05:22→22:59)
--- NOTE | 2024-02-24 07:15 | PTCARENOTE ---
report received. aaox3. nsr. vss. 6lnc. pt ambulated to bathroom w/ assitance. pt sitting in chair. plan of care updated. will monitor.
[2024-02-24] MEDS: ELIQUIS 5 MG PO ×2 (07:41→19:33)
[2024-02-24] MEDS: DAPSONE 50 MG PO (07:41)
[2024-02-24] MEDS: TIKOSYN 250 MCG PO ×2 (07:41→19:32)
[2024-02-24] MEDS: TOPROL XL 12.5 MG PO (07:41)
[2024-02-24] MEDS: LASIX 20 MG PO (07:41)
--- NOTE | 2024-02-24 08:02 | W.PN.HOSP.TC ---
Today's Communication/Plan
-
see bold
Assessment / Plan
Assessment / Plan
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
just discharged from the hospital after being treated for CHF preserved EF, amiodarone induced pulmonary toxicity followed locally and at [facility]-readmitted with persistent hypoxemia and pulmonary consulted for hypoxemia 02/18/2024. Patient states that
he went home and had increasing shortness of breath and noticed his pulse ox in the 80s and returned.
Acute on Chronic Hypoxemic Respiratory Failure
ILD exacerbation
Amiodarone induced pulmonary toxicity
- Has been on 3 L since 01/17/2024. Was satting in the low 80s on 5 L on 02/18/24
- Appreciate pulmonology input, guarded prognosis, continue high-dose IV Solu-Medrol
- Monitor off of antibiotics. Currently on 6 L, down from 8 L of oxygen, wean as tolerated
- Appreciate palliative care input, patient is considering changing his CODE STATUS from full code to DNR, he will get back to us
- Family would like second opinion from [place], discussed options and getting him there faster
- Plan for dc on 02/25/24 home with oxygen do he can keep his pulm appt at [place] on 02/26/24
Paroxysmal Atrial Fibrillation
- Continue Tikosyn and Eliquis
Chronic HFpEF
- Increase Lasix to 40 mg daily, patient takes 20 mg daily at home
JUAN on CKD III
- JUAN resolved, resumed Lasix
Urothelial Cancer
- Recently stopped Keytruda due to worsening ILD / hypoxemia.
- On outpatient chemo regimen.
- Follow-up with Oncology as an outpatient.
DVT Prophylaxis: On Eliquis
Code Status: Full
Updated family at bedside 02/20
Total time spent to see the patient on the floor, examine the patient, review data and lab results, discuss treatment plan with patient, nursing staff around 36 minutes.
Physical Exam
General: No acute distress
HEENT: Normocephalic, Atraumatic, EOMI, MMM
Respiratory: Bibasilar crackles
Cardiac: Normal S1/S2, Regular Rate and Rhythm
GI: Soft, Nontender, Nondistended, Normal Bowel Sounds
Extremities: No Clubbing, Cyanosis, or Edema
Neuro: Nonfocal/Grossly Intact
Psych: Calm, Cooperative
Anticipated Discharge: Within 24 hours
Subjective/Interval History
-
Date of Service: February 24, 2024
No acute changes. Feels intermittently foggy. No chest pain, no shortness of breath, no dyspnea with activity. No fever, no vomiting.
Objective Data
-
Vital Signs:
Vital Signs
Temp Pulse Resp BP Pulse Ox
97.7 F 81 18 121/96 97
02/24/24 03:18 02/24/24 06:00 02/24/24 06:00 02/24/24 06:00 02/24/24 06:00
I&O
02/23/24 02/24/24 02/25/24
06:59 06:59 06:59
Intake Total 660 / 660
Output Total 1250 / 1250 1200 / 1200
Balance -1250 / -1250 -540 / -540
--- NOTE | 2024-02-24 09:31 | W.PN.PUL3 ---
Today's Communication / Plan
-
Reduce Solu-Medrol to 40 mg IV q8hr; eventual transition to prednisone 60 mg with extended slow taper
Consider bronchoscopy this week with BAL of left lung to send for cell count with differential, cultures + cytopathology as he has been adequately diuresed and been on high-dose systemic steroids still with minimal improvement, raising concern that
this is due to malignancy as a primary cause of his persistent hypoxia and recurrent hospitalizations
Increase activity as tolerated
PT/OT - rec'd home health
Attempt to wean O2 flow rate to keep SpO2 >90-94%
Consider discharge in the next 24-48 hours with outpatient [facility]-interstitial lung disease expert appointment next Sunday -I do not think that this is realistic as he still requires 8 L/min with exertion
Assessment
-
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
after being treated for CHF preserved EF, amiodarone induced pulmonary toxicity followed locally and at [facility]-readmitted with persistent hypoxemia and pulmonary consulted for hypoxemia 02/18/2024.
Impression:
Respiratory failure-acute on top of chronic vwzdxixtz-afnnxqwecjssql-owecfn, interstitial lung disease, possible pneumonia vs malignancy
Interstitial lung disease-amiodarone versus Keytruda
Chronic CHF-preserved EF
PAF
Anemia
Thrombocytopenia
Hyperglycemia
JUAN
Mildly elevated troponin (0.057 on 02/17/2024)
Conditions present prior to admission:
Urothelial cell carcinoma with metastatic disease to the lungs status post bronchoscopy-[facility] October 2023 Elis on immunotherapy.
CHF preserved EF.
Diastolic CHF.
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
PAF/ablation x 3/failed sotalol/cardioversion.
Chronic kidney disease.
Nephrolithiasis.
BPH.
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 Left ureterectomy. Hernia repair. Port placement.
Plan
Respiratory decompensation likely multifactorial-known significant interstitial lung disease-amiodarone versus Keytruda on prednisone with possible volume or even bacterial pneumonia on csn-fbnlxadhmal-c-rays, CTs of the chest and abdomen as well as
PET scan over the last couple years are summarized below
-He did have recently diagnosed left-sided metastatic urothelial carcinoma after a left upper lobe nodule was seen, and he has not completed treatment for this. This does raise suspicion that his abnormal imaging is due to malignancy +/-
lymphangitic carcinomatosis
Respiratory status relatively stable-perhaps slight improvement with reduction in FiO2 requirements
Supplemental oxygen as needed-currently on5-6 L-down from 8 L; needs 8l/min with activity
Goal SpO2 >90-94%
Assess discharge supplemental oxygen needs-he is unclear how 'high' FiO2 can be delivered on home supplemental oxygen-would like [employer] company to supply up to 10 L just in case
Check ambulatory pulse oximetry prior to discharge
Aspiration precautions
Incentive spirometry encouraged
Mucolytics if needed
Mucus clearing devices
Methylprednisolone initiated 40 mg IV every 6 hours-- lower today to 40mg IV q8hr- eventual transition to prednisone 60 mg with slow taper
Continue dapsone for pcp ppx
Off amiodarone
Hold Keytruda as may be contributing to interstitial lung disease.
Chest x-ray 02/21/24-no significant change-no better, no worse compared to prior CXR on 02/17/2024
If anesthesia is comfortable and would recommend bronchoscopy with BAL to assess left lung to check for cell count with differential, cultures and cytopathology as well as for direct visualization; there is high suspicion that he is not improving
because of untreated malignancy, especially given that he is net negative since admission and has been on high-dose steroids for almost 7 days now
Prior cultures reviewed
Sputum culture if able-unable to produce
Influenza negative
Monitor radiographically
Procalcitonin unlikely to help but if negative then unlikely respiratory tract infection
Trend WBC; monitor fo fevers
Observe off antibiotics
Diuresis as tolerated - currently on PO lasix 20mg daily
Monitor renal function, electrolytes, intake/output, lower extremity edema and weight
Replace electrolytes as needed
Atrial fibrillation rate control
Monitor hemoglobin and platelet count
Transfuse as needed to keep Hb>7
Monitor blood sugar with goal BG >100 and <180
Insulin supplementation as needed
DVT prophylaxis-on Eliquis
Nutrition
Physical therapy as tolerated.
There was a request for potential direct Hospital- Hospital transfer. Explained that this is unrealistic-needs an accepting physician, unlikely there is something they can offer that we cannot-best alternative is patient has an appointment next
Sunday with ILD expert Dr Dixon--- to stabilize, discharge on 6 L of oxygen and make that outpatient appointment at [facility] on Sunday-Dr. Oneil reviewed this plan with patient, , son, and primary service
Reviewed with hospitalist
Palliative care consult noted-patient wants to have palliative care as an outpatient and would prefer to be DNR-he wants to talk it over with his family first
Pulmonary service will continue to follow along while he remains hospitalized
Family updates:
Dr. Oneil updated at length and both 02/18/2024,02/19/2024 , 02/20/24, 02/21/2024 as well as 02/22/24-worrisome prognosis with repetitive hospitalizations and increased FiO2 requirements, told for the time being off amiodarone/Keytruda, told
likely grmzsupgjsxwos-cyum-irmoeyz interstitial lung disease, possible fluid, possible pneumonia contributing to progressive hypoxemia
Unfortunately it appears to me the is grasping at straws, always asking when he is going to turn around, explained that he may not improve and there may be a steady decline, hoping for the best, we will continue to afford emotional support
Dr. Oneil also updated son 02/21/2024 at length-family considering transfer to [place]-I will reach out to hospitalist-I told them realistically they may not accept as there is unlikely anything else they can offer
Also the patient has an appointment next Sunday with Dr. Holly Dixon-ILD expert
Dr. Oneil communicated with son as well and 02/19/2024 and is requesting that I speak to his [id number] which I am willing to-I called her and left detailed message on her answering machine
Outpatient pulmonary follow-up
Diagnostic data:
Chest x-ray 02/16/2021-NAD
Chest x-ray 09/08/2023-moderate CHF
Chest x-ray 09/19/2023-stable interstitial and airspace opacifications
Chest x-ray 12/08/2023-bilateral interstitial opacifications suspecting chronic interstitial lung disease
Chest x-ray 01/18/2024-left lower lobe pneumonia superimposed on chronic interstitial infiltrates
Chest x-ray 02/09-bilateral pulmonary parenchymal opacifications with some improvement
Chest x-ray 02/17/2024-bilateral parenchymal opacifications slightly progressed in the left lung and in the right lower lung possibly minimal superimposed alveolar component, at least a component of findings may be chronic
CT chest 05/03/2021-no significant acute abnormalities, 2 adjacent solid nodules measuring 7 mm not changed since 2019
CT abdomen-small filling defects within the left renal pelvis suspicious for upper urinary tract malignancy, lung bases subsegmental atelectasis
CT abdomen and pelvis 02/06/2023-nonobstructing right renal stone, lung bases are clear
CT abdomen and pelvis 08/06/2023-lung bases minimal bilateral pleural effusions, interstitial edema in the lung bases, post left nephrectomy, nonobstructing right nephrolithiasis
CT chest 09/12/2023-widespread prominence of pulmonary interstitium and new widespread areas of groundglass opacifications, mild mediastinal lymphadenopathy
CT chest 11/27/2023-oblong left upper lobe mass measuring 3.[address] chest 01/25/2024-scattered foci of acute pneumonitis superimposed on chronic changes of interstitial lung disease,
PET scan 11/14/2023-activity seen in presumed urinary bladder/prostate defect from prior surgery likely physiologic, mild FDG uptake lesion upper lobe of the lung, minimal FDG uptake lower lobes of the lungs likely inflammatory
Total time spent today was 56 minutes for this encounter. Time includes reviewing laboratory test/imaging results, reviewing pertinent medical records, obtaining and reviewing medical history, performing an appropriate exam, ordering medications,
tests and procedures. Time also includes documentation of this encounter, coordinating patient care and communicating with other healthcare professionals. Total time does not include separately billed tests performed on this date of service.
Subjective Data
-
Date of Service:
Date of Service: February 24, 2024
Chief Complaint: Pulmonary Follow Up and Dyspnea Follow Up
Subjective:
Patient seen and evaluated today at bedside. Currently on 5 L/min, saturating 95%, heart rate 84 and BP 103/78. Patient's at bedside and answered all of her questions. Patient feels well although when he walks he gets short of breath after
several minutes. He currently denies chest pain, ANDREW, abdominal pain, fevers or chills.
Review of Systems
General: Other (Negative unless mentioned above)
Objective Data
Data Reviewed
Vital Signs / I&O / Oxygen:
Vital Signs
Temp Pulse Resp BP Pulse Ox
96.6 F L 81 18 121/96 97
02/24/24 07:29 02/24/24 06:00 02/24/24 06:00 02/24/24 06:00 02/24/24 06:00
Intake and Output
02/23/24 02/24/24 02/25/24
06:59 06:59 06:59
Intake Total 660 / 660
Output Total 1250 / 1250 1200 / 1200 375 / 375
Balance -1250 / -1250 -540 / -540 -375 / -375
SaO2 97
Nasal Cannula flow liters per 6
minute
Physical Exam
General: Respiratory Distress (n), Comfortable, Chills (n) and Sweats (n)
HEENT: Normocephalic, Anicteric and Moist Mucous Membranes
Cardiovascular: Regular Rhythm, Murmur (DARIN heard across precordium) and Peripheral Edema (negative)
Respiratory: Wheeze (n), Crackles (Bibasilar (L >R)), Rhonchi (n), Non-Labored Respirations, Accessory Resp Muscle Use (n), Stridor (n) and Other (Diminished breath sounds at the left base)
GI: Soft, Non Distended, Non Tender and Normal Bowel Sounds
Neurology: AO x 3 and Tremors (negative)
Skin: Warm, Dry, Cyanosis (n), Jaundice (n) and Rash (n)
Labs/Micro/Reports
Lab Data
02/20/24 05:54
02/22/24 05:04
[2024-02-24 14:46] LABS: C-Reactive Protein < 5.00 mg/L (0.0-10.00)
--- NOTE | 2024-02-24 15:40 | CHAP ---
Mr. Trivedi was welcoming - he teared up talking about what he is struggling with. He has supportive family. Emotional and spiritual support provided, along with assurance of our on-going availability.
[2024-02-24] MEDS: PROSCAR 5 MG PO (22:57)
[2024-02-24] MEDS: LIPITOR 10 MG PO (22:57)
[2024-02-24] MEDS: FLUSH (NSS) 2 FLUSH IV (22:59)
[2024-02-25] VITALS (30 sets, daily range): BP systolic 77–130; BP diastolic 60–102; BMI 25.6
[2024-02-25 05:17] LABS: Blood Urea Nitrogen 49 mg/dl (9-20); Calcium 8.1 mg/dl (8.4-10.2); Carbon Dioxide 32 mmol/L (22-30); Chloride 99 mmol/L (98-107); Estimated Creatinine Clearance 54 ml/min; Glucose 187 mg/dl (70-99); Magnesium 2.5 mg/dl (1.6-2.3); Potassium 4.9 mmol/L (3.5-5.1); Sodium 134 mmol/L (135-145); eGFR > 60.00
[2024-02-25] MEDS: DAPSONE 50 MG PO (09:16)
[2024-02-25] MEDS: TOPROL XL 12.5 MG PO (09:18)
[2024-02-25] MEDS: TIKOSYN 250 MCG PO ×2 (09:18→20:13)
[2024-02-25] MEDS: ELIQUIS 5 MG PO ×2 (09:19→20:13)
[2024-02-25] MEDS: LASIX 20 MG PO (09:19)
[2024-02-25] MEDS: SOLU-MEDROL PF 40 MG IV (09:19)
--- NOTE | 2024-02-25 09:28 | W.PN.PUL3 ---
Today's Communication / Plan
-
Remains on 3L NC, but improving
Add airway clearance measures, Mucinex, Duonebs--discussed with RT
Sputum culture, induced
Wean IV steroids
Check ABG
Check proBNP again, check procal
Increase lasix to 40mg
Encouraged OOB/PT/IS
Review OP CT, may need to repeat CT while inpatient
Discussed with patient today
Assessment
-
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
after being treated for CHF preserved EF, amiodarone induced pulmonary toxicity followed locally and at [facility]-readmitted with persistent hypoxemia and pulmonary consulted for hypoxemia 02/18/2024.
Impression:
Respiratory failure-acute on top of chronic eymqmmdbv-iidvnhozecyqzr-eabpza, interstitial lung disease, possible pneumonia vs malignancy
Interstitial lung disease-amiodarone versus Keytruda
Chronic CHF-preserved EF
PAF
Anemia
Thrombocytopenia
Hyperglycemia
JUAN
Mildly elevated troponin (0.057 on 02/17/2024)
Conditions present prior to admission:
Urothelial cell carcinoma with metastatic disease to the lungs status post bronchoscopy-[facility] October 2023 Elis on immunotherapy.
CHF preserved EF.
Diastolic CHF.
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
PAF/ablation x 3/failed sotalol/cardioversion.
Chronic kidney disease.
Nephrolithiasis.
BPH.
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 Left ureterectomy. Hernia repair. Port placement.
Plan
Respiratory decompensation likely multifactorial-known significant interstitial lung disease-amiodarone versus Keytruda on prednisone with possible volume or even bacterial pneumonia on cua-ggajorrfdnv-b-rays, CTs of the chest and abdomen as well as
PET scan over the last couple years are summarized below
He did have recently diagnosed left-sided metastatic urothelial carcinoma after a left upper lobe nodule was seen, and he has not completed treatment for this. This does raise suspicion that his abnormal imaging is due to malignancy +/-
lymphangitic carcinomatosis
Respiratory status relatively stable-perhaps slight improvement with reduction in FiO2 requirements
Supplemental oxygen as needed-currently on 3L, needs up to 8L with activity
Goal SpO2 >90-94%
Check ambulatory pulse oximetry prior to discharge
Airway clearance recommended
Aspiration precautions
Incentive spirometry encouraged
Mucolytics if needed--add mucinex, acapella/vest
Mucus clearing devices
Methylprednisolone initiated 40 mg IV every 6 hours-- lower today to 40mg IV q8hr- eventual transition to prednisone 60 mg with slow taper
Continue dapsone for pcp ppx
Off amiodarone
Hold Keytruda as may be contributing to interstitial lung disease.
Chest x-ray 02/21/24-no significant change-no better, no worse compared to prior CXR on 02/17/[address] at [place], will review results--considering repeating CT first prior to any procedures--discussed with patient
Add on Duonebs, attempt sputum culture
Check procal and proBNP again
Reviewed with RT
Prior cultures reviewed
Sputum culture if able-unable to produce
Influenza negative
Monitor radiographically
Procalcitonin unlikely to help but if negative then unlikely respiratory tract infection
Trend WBC; monitor fo fevers
Observe off antibiotics
Diuresis as tolerated - currently on PO lasix 20mg daily--transition to 40mg
Admission weight 93 kg, now 86kg, dry weight previously 84
Monitor renal function, electrolytes, intake/output, lower extremity edema and weight
Replace electrolytes as needed
Atrial fibrillation rate control
DVT prophylaxis-on Eliquis
Optimize nutrition
Physical therapy as tolerated
There was a request for potential direct Hospital- Hospital transfer. Explained that this is unrealistic-needs an accepting physician, unlikely there is something they can offer that we cannot-best alternative is patient has an appointment next
Sunday with ILD expert Dr Dixon--- to stabilize, discharge on 6 L of oxygen and make that outpatient appointment at [facility] on Sunday-Dr. Oneil reviewed this plan with patient, , son, and primary service
Palliative care consult noted-patient wants to have palliative care as an outpatient and would prefer to be DNR-he wants to talk it over with his family first
Reviewed with hospitalist
Family Discussions
Dr. Oneil updated at length and both 02/18/2024,02/19/2024 , 02/20/24, 02/21/2024 as well as 02/22/24-worrisome prognosis with repetitive hospitalizations and increased FiO2 requirements, told for the time being off amiodarone/Keytruda, told
likely vascxmkuijpdbw-fqfe-ijzovaq interstitial lung disease, possible fluid, possible pneumonia contributing to progressive hypoxemia
Unfortunately it appears to me the is grasping at straws, always asking when he is going to turn around, explained that he may not improve and there may be a steady decline, hoping for the best, we will continue to afford emotional support
Dr. Oneil also updated son 02/21/2024 at length-family considering transfer to [place]-I will reach out to hospitalist-I told them realistically they may not accept as there is unlikely anything else they can offer
Also the patient has an appointment next Sunday with Dr. Holly Dixon-ILD expert
Dr. Oneil communicated with son as well and 02/19/2024 and is requesting that I speak to his [id number]-[id number]-znl which I am willing to-I called her and left detailed message on her answering machine
Diagnostic Data
Chest x-ray 02/16/2021-NAD
Chest x-ray 09/08/2023-moderate CHF
Chest x-ray 09/19/2023-stable interstitial and airspace opacifications
Chest x-ray 12/08/2023-bilateral interstitial opacifications suspecting chronic interstitial lung disease
Chest x-ray 01/18/2024-left lower lobe pneumonia superimposed on chronic interstitial infiltrates
Chest x-ray 02/09-bilateral pulmonary parenchymal opacifications with some improvement
Chest x-ray 02/17/2024-bilateral parenchymal opacifications slightly progressed in the left lung and in the right lower lung possibly minimal superimposed alveolar component, at least a component of findings may be chronic
CXR 02/24/24- Persistent and slightly progressive pulmonary parenchymal disease process, as described. Possibly reflecting progressive interstitial edema or infectious/inflammatory process.
CT chest 05/03/2021-no significant acute abnormalities, 2 adjacent solid nodules measuring 7 mm not changed since [address] abdomen-small filling defects within the left renal pelvis suspicious for upper urinary tract malignancy, lung bases subsegmental atelectasis
CT abdomen and pelvis 02/06/2023-nonobstructing right renal stone, lung bases are clear
CT abdomen and pelvis 08/06/2023-lung bases minimal bilateral pleural effusions, interstitial edema in the lung bases, post left nephrectomy, nonobstructing right nephrolithiasis
CT chest 09/12/2023-widespread prominence of pulmonary interstitium and new widespread areas of groundglass opacifications, mild mediastinal lymphadenopathy
CT chest 11/27/2023-oblong left upper lobe mass measuring 3.[address] chest 01/25/2024-scattered foci of acute pneumonitis superimposed on chronic changes of interstitial lung disease,
PET scan 11/14/2023-activity seen in presumed urinary bladder/prostate defect from prior surgery likely physiologic, mild FDG uptake lesion upper lobe of the lung, minimal FDG uptake lower lobes of the lungs likely inflammatory
ECHO 01/21/24- Normal left ventricular size and function. Normal regional wall motion. LV ejection fraction is 59% by volumetric assessment. Mild concentric left ventricular hypertrophy. Stage III diastolic dysfunction suggestive of restrictive
filling pattern and increased filling pressures. Normal right ventricular size and function. Well seated #23 mm stentless freestyle aortic valve with peak/mean gradients across the aortic valve at 23/11 mmHg. No aortic regurgitation is seen. Mild
to moderate tricuspid regurgitation. Estimated pulmonary artery pressure of 35-40 mmHg. Assuming a right atrial pressure of 3 mmHg. Compared to prior study dated 09/05/23, the findings are similar. Aortic valve gradients were previously 23/11 mmHg.
Estimated pulmonary artery pressure previously was 57 mmHg.
-----
Total time spent today was 55 minutes for this encounter. Time includes reviewing laboratory test/imaging results, reviewing pertinent medical records, obtaining and reviewing medical history, performing an appropriate exam, ordering medications,
tests and procedures. Time also includes documentation of this encounter, coordinating patient care and communicating with other healthcare professionals. Total time does not include separately billed tests performed on this date of service.
Subjective Data
-
Date of Service:
Date of Service: February 25, 2024
Chief Complaint: Pulmonary Follow Up and Dyspnea Follow Up
Subjective:
Feels better, remains on 3L NC
Needs 8L with exertion
Not coughing
Objective Data
Data Reviewed
Vital Signs / I&O / Oxygen:
Vital Signs
Temp Pulse Resp BP Pulse Ox
97.4 F 84 15 112/80 96
02/25/24 07:30 02/25/24 09:19 02/25/24 06:00 02/25/24 09:19 02/25/24 06:00
Intake and Output
02/24/24 02/25/24 02/26/24
06:59 06:59 06:59
Intake Total 660 / 660 200 / 200
Output Total 1200 / 1200 1725 / 1725
Balance -540 / -540 -1525 / -1525
SaO2 96
Nasal Cannula flow liters per 6
minute
Physical Exam
General: Respiratory Distress (n), Comfortable, Chills (n) and Sweats (n)
HEENT: Normocephalic, Anicteric and Moist Mucous Membranes
Cardiovascular: S1-S2, Regular Rhythm, Murmur (DARIN heard across precordium) and Peripheral Edema (negative)
Respiratory: Wheeze (n), Crackles (Bibasilar (L >R)), Rhonchi (n), Non-Labored Respirations, Accessory Resp Muscle Use (n), Stridor (n) and Other (Diminished breath sounds at the left base)
GI: Soft, Non Distended, Non Tender and Normal Bowel Sounds
Neurology: AO x 3 and Tremors (negative)
Skin: Warm, Dry, Cyanosis (n), Jaundice (n) and Rash (n)
Labs/Micro/Reports
Lab Data
02/20/24 05:54
02/25/24 04:36
--- NOTE | 2024-02-25 09:56 | W.PN.HOSP.TC ---
Today's Communication/Plan
-
Await pulmonary input for discharge planning for today Vs Bronchoscopy ?
Patient was seen by pulmonary doctor last evening and he seemed to reconsider discharge planning.
Assessment / Plan
Assessment / Plan
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
just discharged from the hospital after being treated for CHF preserved EF, amiodarone induced pulmonary toxicity followed locally and at [facility]-readmitted with persistent hypoxemia and pulmonary consulted for hypoxemia 02/18/2024. Patient states that
he went home and had increasing shortness of breath and noticed his pulse ox in the 80s and returned.
Acute on Chronic Hypoxemic Respiratory Failure
ILD exacerbation
Amiodarone induced pulmonary toxicity
- Has been on 3 L since 01/17/2024. Was satting in the low 80s on 5 L on 02/18/24
- Appreciate pulmonology input, guarded prognosis, continue high-dose IV Solu-Medrol, change to oral prednisone.
- Monitor off of antibiotics. Currently on 6 L, down from 8 L of oxygen, wean as tolerated
- Appreciate palliative care input, patient is considering changing his CODE STATUS from full code to DNR, he will get back to us
- Family would like second opinion from [place], discussed options and getting him there faster
- Plan for dc on 02/25/24 home with oxygen do he can keep his pulm appt at [place] on 02/26/24
Paroxysmal Atrial Fibrillation
- Continue Tikosyn and Eliquis
Chronic HFpEF
- Increase Lasix to 40 mg daily, patient takes 20 mg daily at home
JUAN on CKD III
- JUAN resolved, resumed Lasix
Urothelial Cancer
- Recently stopped Keytruda due to worsening ILD / hypoxemia.
- On outpatient chemo regimen.
- Follow-up with Oncology as an outpatient.
DVT Prophylaxis: On Eliquis
Code Status: Full
Updated family at bedside 02/20
Total time spent to see the patient on the floor, examine the patient, review data and lab results, discuss treatment plan with patient, nursing staff around 55 minutes.
Physical Exam
General: No acute distress
HEENT: Normocephalic, Atraumatic, EOMI, MMM
Respiratory: Bibasilar crackles, no wheezes
Cardiac: Normal S1/S2, Regular Rate and Rhythm
GI: Soft, Nontender, Nondistended, Normal Bowel Sounds
Extremities: No Clubbing, Cyanosis, or Edema
Neuro: Nonfocal/Grossly Intact
Psych: Calm, Cooperative
Anticipated Discharge: Within 24 hours
Subjective/Interval History
-
Date of Service: February 25, 2024
No sob
No chest pain
Objective Data
-
Labs:
Laboratory Results
02/25/24
04:36
Sodium 134 L
Potassium 4.9
Chloride 99
Carbon Dioxide 32 H
BUN 49 H
Creatinine 1.1
Glucose 187 H
Calcium 8.1 L
Vital Signs:
Vital Signs
Temp Pulse Resp BP Pulse Ox
97.4 F 84 15 112/80 96
02/25/24 07:30 02/25/24 09:19 02/25/24 06:00 02/25/24 09:19 02/25/24 06:00
I&O
02/24/24 02/25/24 02/26/24
06:59 06:59 06:59
Intake Total 660 / 660 200 / 200
Output Total 1200 / 1200 1725 / 1725
Balance -540 / -540 -1525 / -1525
[2024-02-25 10:37] LABS: Procalcitonin 0.08 ng/ml (0.0-0.25)
[2024-02-25 10:48] LABS: NT-proBNP 1040 pg/ml
[2024-02-25] MEDS: DUONEB 3 ML INH ×3 (11:24→19:27)
--- NOTE | 2024-02-25 11:50 | VNURNOTE ---
Updated 02 assessment results faxed to [facility].
[2024-02-25] MEDS: MUCINEX 1200 MG PO ×2 (12:00→20:13)
[2024-02-25 12:27] LABS: B.E. 5.2 mmol/L; O2 Saturation % 97.5 % (94-98); PCO2 39 mmHg (35-48); PO2 73 mmHg (83-108); pH 7.48 (7.35-7.45)
[2024-02-25 12:51] LABS: O2 Therapy ON O2
--- NOTE | 2024-02-25 12:57 | VNURNOTE ---
Addendum- Saravanan at [facility] confirmed that 10L 02 concentrator was delivered to patient's house already. ROLANDO hudson.
--- NOTE | 2024-02-25 12:59 | W.PN.PAL2 ---
Today's Communication
-
agreeable to staying inpatient
pulm following - plan for repeat CT with possible bronch ? this week
Assessment / Plan
-
Assessment/Plan:
88 year old M with metastatic urothelial cancer on keytruda. Concern for ILD 2/2 amiodarone vs keytruda. Persistent hypoxia requiring 8L 02, concern for malignant process 2/2 minimal improvement with steroids.
Patient seen at bedside sitting up in chair. Appears comfortable, reports just feeling run down and tired. On 6L 02 today. Agreeable to staying in the hospital due to high 02 needs. PLanned for repeat CT and possibly bronch this week pending further
pulm input after CT.
Agreeable to outpatient palliative follow up once discharged. Has our information.
Pain & Symptom Assessment
Ridgely Symptom Scale 0=none, 10=worst
Pain: 0
Tired: 5
Nausea: 0
Shortness of Breath: 2
Objective Data
-
Objective Data:
Vital Signs
Temp Pulse Resp BP Pulse Ox
97.3 F 83 28 115/91 93
02/25/24 11:25 02/25/24 12:00 02/25/24 12:00 02/25/24 12:00 02/25/24 12:00
Laboratory Results
02/20/24 05:54
02/25/24 04:36
Total Protein 6.1 g/dl (6.3-8.2) L 02/17/24 17:05
Albumin 3.5 g/dl (3.5-5.0) 02/17/24 17:05
Palliative Performance Scale
Palliative Performance Scale:
PPS Level Ambulation Activity & Evidence of Disease Self Care Intake Conscious Level
100% Full Normal Activity & Work; Full Intake Full
No Evidence of Disease
90% Full Normal Activity & Work; Full Normal Full
Some Evidence of Disease
80% Full Normal Activity with Effort Full Normal or Full
Some Evidence of Disease Reduced
70% Reduced Unable Normal Job/Work Full Normal or Full
Significant Disease Reduced
60% Reduced Unable Hobby/Housework Occasional Normal or Full or Confusion
Significant Disease Assistance Reduced
50% Mainly Sit/Lie Unable to do Any Work Considerable Normal or Full or Confusion
Extensive Disease Assistance Req'd Reduced
40% Mainly in Bed Unable to do Most Activity Mainly Assistance Normal or Full or Drowsy;
Extensive Disease Reduced +/- Confusion
30% Totally Bed Unable to do Any Activity Total Care Normal or Full or Drowsy;
Bound Extensive Disease Reduced +/- Confusion
20% Totally Bed Bound Unable to do Any Activity Total Care Minimal to Full or Drowsy;
Extensive Disease Sips +/- Confusion
10% Totally Bed Bound Unable to do Any Activity Total Care Mouth Care Drowsy or Coma;
Extensive Disease Only +/- Confusion
0%
PPS Score Level:
Physical Exam
-
General: Conversant and Appears Chronically Ill
HEENT: Normocephalic
Respiratory: Clear to Auscultation
Cardiac: Regular Rhythm
Peripheral Vascular: No Edema
GI: Soft
Skin: Warm
Neuro: AO x 3
Psych: Calm
Care Reviewed
Data Reviewed
Medical Tests: I reviewed
Reviewed with: Patient
--- NOTE | 2024-02-25 14:32 | PTCARENOTE ---
Patient has been out of bed for several hours. Became fatigued, bp 86/66. Patient placed back in bed and blood pressure is now 98/62. Patient feels better. Dr. Caceres aware.
[2024-02-25] MEDS: NSS 250 IV (15:03)
[2024-02-25] MEDS: ProAmatine 5 MG PO (15:10)
--- NOTE | 2024-02-25 15:15 | CM ---
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 O2 6L. Receiving IVF. PT & OT recommend HH.
Spoke with OLVIN [facility] Liaison; she sent the O2 orders to [facility] today and confirmed delivery of 10 L concentrator to patient's home.
Met with patient, Cleopatra and daughter in law Holly; discussed planned d/c tomorrow. Patient says he feels ready to go home tomorrow. IMM completed. Patient and are aware that [facility] is setup for him. They confirm that 10L home O2
concentrator has been delivered - will bring in a few portable tanks for d/c tomorrow as they will be driving directly from here to [facility] for a medical appointment.
Plan home tomorrow with [facility] and Hi Flow/10L O2 concentrator.
--- NOTE | 2024-02-25 17:00 | PTCARENOTE ---
Patient received a one time bolus of NSS 250ml and a one time dose of Midodrine. Blood pressure is now 104/76. Patient is smiling in bed at this time stating that he feels much better. Patient is for discharge tomorrow, plan of care discussed.
Patient and family verbalized understanding.
[2024-02-25] MEDS: PROSCAR 5 MG PO (20:13)
[2024-02-25] MEDS: LIPITOR 10 MG PO (20:13)
--- NOTE | 2024-02-25 20:44 | PTCARENOTE ---
Received pt from previous RN. Pt is AAOx3. NSR w/ PACs on the monitor. Pt on 6L midflow O2 sat 95%, lungs coarse/crackles, ACUÑA. Pt uses the urinal on the side of the bed. CHG bath provided. Pt is laying in bed with call alexandre in reach. Safe
environment maintained.
[2024-02-26] VITALS: BP 115/78
[2024-02-26 02:00] VITALS: BP 109/67
[2024-02-26 04:00] VITALS: BP 110/73
[2024-02-26 05:35] VITALS: BMI 25.6
[2024-02-26 06:00] VITALS: BP 98/68
[2024-02-26] MEDS: DUONEB 3 ML INH ×2 (07:09→11:37)
[2024-02-26] MEDS: DAPSONE 50 MG PO (07:28)
[2024-02-26] MEDS: ELIQUIS 5 MG PO (07:29)
[2024-02-26] MEDS: TIKOSYN 250 MCG PO (07:29)
[2024-02-26] MEDS: MUCINEX 1200 MG PO (07:29)
[2024-02-26] MEDS: DELTASONE 60 MG PO (07:29)
[2024-02-26 08:00] VITALS: BP 109/73
--- NOTE | 2024-02-26 08:55 | W.PN.PUL3 ---
Today's Communication / Plan
-
He is maintained on 5L at rest and will need 8L with exertion--this was rechecked this AM
He has disease progression on CT (had recent study at [place] as well)--would be high risk for any procedure based on his degree of hypoxemia
We discussed reimaging as OP and next steps --he wants to go to tertiary center for transplant and advanced therapies
Continue prednisone taper, continue airway clearance measures, PT/OT
I have also increased his Lasix to 40mg as his proBNP was still elevated
Procal neg, no evidence of infection
Pall care had been consulted, patient reports he will FU as OP
Plan for discharge so patient can follow up at [place], as he wishes
Assessment
-
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
after being treated for CHF preserved EF, amiodarone induced pulmonary toxicity followed locally and at [facility]-readmitted with persistent hypoxemia and pulmonary consulted for hypoxemia 02/18/2024.
Impression:
Respiratory failure-acute on top of chronic qnoogqpat-zppkbytqcixoyz-jmtjxf, interstitial lung disease, possible pneumonia vs malignancy
Interstitial lung disease-amiodarone versus Keytruda
Chronic CHF-preserved EF
PAF
Anemia
Thrombocytopenia
Hyperglycemia
JUAN
Mildly elevated troponin (0.057 on 02/17/2024)
Conditions present prior to admission:
Urothelial cell carcinoma with metastatic disease to the lungs status post bronchoscopy-[facility] October 2023 Elis on immunotherapy.
CHF preserved EF.
Diastolic CHF.
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
PAF/ablation x 3/failed sotalol/cardioversion.
Chronic kidney disease.
Nephrolithiasis.
BPH.
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 Left ureterectomy. Hernia repair. Port placement.
Plan
Respiratory decompensation likely multifactorial-known significant interstitial lung disease-amiodarone versus Keytruda on prednisone with possible volume or even bacterial pneumonia on khs-rzngvkygesy-k-rays, CTs of the chest and abdomen as well as
PET scan over the last couple years are summarized below
He did have recently diagnosed left-sided metastatic urothelial carcinoma after a left upper lobe nodule was seen, and he has not completed treatment for this. This does raise suspicion that his abnormal imaging is due to malignancy +/-
lymphangitic carcinomatosis
Respiratory status relatively stable-perhaps slight improvement with reduction in FiO2 requirements
Supplemental oxygen as needed-currently on 5L, needs up to 8L with activity
Goal SpO2 >90-94%
Airway clearance recommended
Aspiration precautions
Incentive spirometry encouraged
Mucolytics if needed--add mucinex, acapella/vest
Mucus clearing devices
Methylprednisolone initiated 40 mg IV every 6 hours-- lower today to 40mg IV q8hr- eventual transition to prednisone 60 mg with slow taper
Continue dapsone for pcp ppx
Off amiodarone
Hold Keytruda as may be contributing to interstitial lung disease.
Chest x-ray 02/21/24-no significant change-no better, no worse compared to prior CXR on 02/17/[address] at [place], will review results--considering repeating CT first prior to any procedures--discussed with patient
Add on Duonebs, attempt sputum culture
Check procal and proBNP again--neg procal, elevated proBNP
Reviewed with RT
Prior cultures reviewed
Sputum culture if able-unable to produce
Influenza negative
Monitor radiographically
Procalcitonin unlikely to help but if negative then unlikely respiratory tract infection
Trend WBC; monitor fo fevers
Observe off antibiotics
Diuresis as tolerated - currently on PO lasix 20mg daily--transition to 40mg
Admission weight 93 kg, now 86kg, dry weight previously 84
Monitor renal function, electrolytes, intake/output, lower extremity edema and weight
Replace electrolytes as needed
Atrial fibrillation rate control
DVT prophylaxis-on Eliquis
Optimize nutrition
Physical therapy as tolerated
There was a request for potential direct Hospital- Hospital transfer. Explained that this is unrealistic-needs an accepting physician, unlikely there is something they can offer that we cannot-best alternative is patient has an appointment next
Sunday with ILD expert Dr Dixon--- to stabilize, discharge on 6 L of oxygen and make that outpatient appointment at [facility] on Sunday-Dr. Oneil reviewed this plan with patient, , son, and primary service
Palliative care consult noted-patient wants to have palliative care as an outpatient and would prefer to be DNR-he wants to talk it over with his family first
Reviewed with hospitalist
Family Discussions
Dr. Oneil updated at length and both 02/18/2024,02/19/2024 , 02/20/24, 02/21/2024 as well as 02/22/24-worrisome prognosis with repetitive hospitalizations and increased FiO2 requirements, told for the time being off amiodarone/Keytruda, told
likely fhdxgwtvtawttx-bjqs-zvpimfy interstitial lung disease, possible fluid, possible pneumonia contributing to progressive hypoxemia
Unfortunately it appears to me the is grasping at straws, always asking when he is going to turn around, explained that he may not improve and there may be a steady decline, hoping for the best, we will continue to afford emotional support
Dr. Oneil also updated son 02/21/2024 at length-family considering transfer to [place]-I will reach out to hospitalist-I told them realistically they may not accept as there is unlikely anything else they can offer
Also the patient has an appointment next Sunday with Dr. Holly Dixon-ILD expert
Dr. Oneil communicated with son as well and 02/19/2024 and is requesting that I speak to his [id number]-jck which I am willing to-I called her and left detailed message on her answering machine
Diagnostic Data
Chest x-ray 02/16/2021-NAD
Chest x-ray 09/08/2023-moderate CHF
Chest x-ray 09/19/2023-stable interstitial and airspace opacifications
Chest x-ray 12/08/2023-bilateral interstitial opacifications suspecting chronic interstitial lung disease
Chest x-ray 01/18/2024-left lower lobe pneumonia superimposed on chronic interstitial infiltrates
Chest x-ray 02/09-bilateral pulmonary parenchymal opacifications with some improvement
Chest x-ray 02/17/2024-bilateral parenchymal opacifications slightly progressed in the left lung and in the right lower lung possibly minimal superimposed alveolar component, at least a component of findings may be chronic
CXR 02/24/24- Persistent and slightly progressive pulmonary parenchymal disease process, as described. Possibly reflecting progressive interstitial edema or infectious/inflammatory process.
CT chest 05/03/2021-no significant acute abnormalities, 2 adjacent solid nodules measuring 7 mm not changed since 2019
CT abdomen-small filling defects within the left renal pelvis suspicious for upper urinary tract malignancy, lung bases subsegmental atelectasis
CT abdomen and pelvis 02/06/2023-nonobstructing right renal stone, lung bases are clear
CT abdomen and pelvis 08/06/2023-lung bases minimal bilateral pleural effusions, interstitial edema in the lung bases, post left nephrectomy, nonobstructing right nephrolithiasis
CT chest 09/12/2023-widespread prominence of pulmonary interstitium and new widespread areas of groundglass opacifications, mild mediastinal lymphadenopathy
CT chest 11/27/2023-oblong left upper lobe mass measuring 3.[address] chest 01/25/2024-scattered foci of acute pneumonitis superimposed on chronic changes of interstitial lung disease,
PET scan 11/14/2023-activity seen in presumed urinary bladder/prostate defect from prior surgery likely physiologic, mild FDG uptake lesion upper lobe of the lung, minimal FDG uptake lower lobes of the lungs likely inflammatory
ECHO 01/21/24- Normal left ventricular size and function. Normal regional wall motion. LV ejection fraction is 59% by volumetric assessment. Mild concentric left ventricular hypertrophy. Stage III diastolic dysfunction suggestive of restrictive
filling pattern and increased filling pressures. Normal right ventricular size and function. Well seated #23 mm stentless freestyle aortic valve with peak/mean gradients across the aortic valve at 23/11 mmHg. No aortic regurgitation is seen. Mild
to moderate tricuspid regurgitation. Estimated pulmonary artery pressure of 35-40 mmHg. Assuming a right atrial pressure of 3 mmHg. Compared to prior study dated 09/05/23, the findings are similar. Aortic valve gradients were previously 23/11 mmHg.
Estimated pulmonary artery pressure previously was 57 mmHg.
-----
Total time spent today was 51 minutes for this encounter. Time includes reviewing laboratory test/imaging results, reviewing pertinent medical records, obtaining and reviewing medical history, performing an appropriate exam, ordering medications,
tests and procedures. Time also includes documentation of this encounter, coordinating patient care and communicating with other healthcare professionals. Total time does not include separately billed tests performed on this date of service.
Subjective Data
-
Date of Service:
Date of Service: February 26, 2024
Chief Complaint: Pulmonary Follow Up and Dyspnea Follow Up
Subjective:
No new issues this AM, remains the same
On 5L increased from 3L
No new complaints
Objective Data
Data Reviewed
Vital Signs / I&O / Oxygen:
Vital Signs
Temp Pulse Resp BP Pulse Ox
98.1 F 83 24 109/73 94
02/26/24 07:43 02/26/24 08:00 02/26/24 08:00 02/26/24 08:00 02/26/24 08:00
Intake and Output
02/25/24 02/26/24 02/27/24
06:59 06:59 06:59
Intake Total 200 / 200 210 / 210 480 / 480
Output Total 1725 / 1725 500 / 500 800 / 800
Balance -1525 / -1525 -290 / -290 -320 / -320
SaO2 94
Nasal Cannula flow liters per 6
minute
Physical Exam
General: Respiratory Distress (n), Comfortable, Chills (n) and Sweats (n)
HEENT: Normocephalic, Anicteric and Moist Mucous Membranes
Cardiovascular: S1-S2, Regular Rhythm, Murmur (DARIN heard across precordium) and Peripheral Edema (negative)
Respiratory: Wheeze (n), Crackles (Bibasilar (L >R)), Rhonchi (n), Non-Labored Respirations, Accessory Resp Muscle Use (n), Stridor (n) and Other (Diminished breath sounds at the left base)
GI: Soft, Non Distended, Non Tender and Normal Bowel Sounds
Neurology: AO x 3 and Tremors (negative)
Skin: Warm, Dry, Cyanosis (n), Jaundice (n) and Rash (n)
Labs/Micro/Reports
Lab Data
02/20/24 05:54
02/25/24 04:36
Laboratory Results
02/25/24
12:18
pH 7.48 H
pCO2 39
pO2 73 L
HCO3 29.0 H
O2 Delivery Level On o2
--- NOTE | 2024-02-26 09:17 | W.PN.HOSP.TC ---
Today's Communication/Plan
-
DC planning
Assessment / Plan
Assessment / Plan
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
just discharged from the hospital after being treated for CHF preserved EF, amiodarone induced pulmonary toxicity followed locally and at [facility]-readmitted with persistent hypoxemia and pulmonary consulted for hypoxemia 02/18/2024. Patient states that
he went home and had increasing shortness of breath and noticed his pulse ox in the 80s and returned.
# discharge planning
Patient has an appointment at [facility] with workforce specialist at 2 PM on 02/25. He had it scheduled two months ago. Patient wants to go to this appointment and looking forward to it. We tested him on exertion, his SaO2 dropped down but eventually
recovered to his baseline 6-8 liters and pt felt better. I discussed with patient and family at bed side, they would like to go ahead with their trip to [facility] and ready with appropriate oxygen tanks. They understood that patient's status was
tenuous and could become unstable and they also could choose to stay in hospital and follow with our pulmonary doctors or return anytime if pt would go into distress. They would like to go ahead with the appointment. Son Manish spoke to Dr Ferguson and
they agreed on discharge planning.
Acute on Chronic Hypoxemic Respiratory Failure
ILD exacerbation
Amiodarone induced pulmonary toxicity
- Has been on 3 L since 01/17/2024. Was satting in the low 80s on 5 L on 02/18/24
- Appreciate pulmonology input, s/p high-dose IV Solu-Medrol, changed to oral prednisone with slow tapering.
- Monitored off of antibiotics. Currently on 4- 6 L, Procalcitonin is negative. Appreciate palliative care input.
- Family would like second opinion from [facility], discussed options and getting him there faster. They want to take him today for his appointment around 2 pm.
- d/w Dr Marty, ok to discharge and f/w pulmonary as OP.
Paroxysmal Atrial Fibrillation
c/w low dose BB
- Continue Tikosyn and Eliquis
# hypotension pots higher dose of Lasix, given IVF and resolved.
Chronic HFpEF
Not in acute failure.
c/w home dose of Lasix.
JUAN on CKD III
- JUAN resolved, resumed Lasix
# Hyponatremia
# Urothelial Cancer
- Recently stopped Keytruda due to worsening ILD / hypoxemia.
- On outpatient chemo regimen.
- Follow-up with Oncology as an outpatient.
DVT Prophylaxis: On Eliquis
Code Status: Full
Total discharge time spent to see the patient on the floor, examine the patient, review data and lab results, discuss discharge plan with patient, nursing staff around 67 minutes.
Physical Exam
General: No acute distress
HEENT: Normocephalic, Atraumatic, EOMI, MMM
Respiratory: Bibasilar crackles ( not worsening) , no wheezes
Cardiac: Normal S1/S2, Regular Rate and Rhythm
GI: Soft, Nontender, Nondistended, Normal Bowel Sounds
Extremities: No Clubbing, Cyanosis, or Edema
Neuro: Nonfocal/Grossly Intact
Psych: Calm, Cooperative
Anticipated Discharge: Today
Subjective/Interval History
-
Date of Service: February 26, 2024
Doing well
Slept well
He feels ready to go home
No hypotension, no chest pain or worsening hypoxia over night
Objective Data
-
Vital Signs:
Vital Signs
Temp Pulse Resp BP Pulse Ox
98.1 F 83 24 109/73 94
02/26/24 07:43 02/26/24 08:00 02/26/24 08:00 02/26/24 08:00 02/26/24 08:00
I&O
02/25/24 02/26/24 02/27/24
06:59 06:59 06:59
Intake Total 200 / 200 210 / 210 480 / 480
Output Total 1725 / 1725 500 / 500 800 / 800
Balance -1525 / -1525 -290 / -290 -320 / -320
--- NOTE | 2024-02-26 09:18 | PTCARENOTE ---
Patient AOx3. Patient on 5L NC with SpO2 greater than 88%. Patient has dyspnea on exertion. NSR with PACs and first degree AV block on monitor. BP stable. Assist x1 with rolling walker. Call alexandre within reach, bed in lowest position, and bed wheels
locked.
--- NOTE | 2024-02-26 09:44 | CM ---
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 O2 5L midflow.
As per prior CM notes from yesterday, the patient and were preparing for d/c home today. The 10L home O2 concentrator has been delivered to the patient's home and family planned on bringing in portable O2 tanks for transport today. Patient
reported that he plans on driving directly from here to [facility] today for a medical appointment. IMM completed yesterday.
Spoke with patient's Patience today who confirms she will be here today to transport her to [facility] for his appt. She will bring in his portable home O2 and his w/c.
Plan home today with [employer] and Hi Flow/10L O2 concentrator.
[2024-02-26 10:00] VITALS: BP 92/73
--- NOTE | 2024-02-26 12:35 | PTCARENOTE ---
1030: Patient's SpO2 after ambulation with RT is 82-86%. Patient increased to 15L. Patient complaining of feeling SOB. Patient encouraged to take deep breaths. RT to bedside. Dr. Caceres and Dr. Kaur made aware.
1045: Patient SpO2 88-90% on 15L. Patient stated that he is feeling less SOB, but anxious about being discharged home due to liters of oxygen patient is requiring. Dr. Caceres made aware.
1130: Dr. Caceres to bedside. Patient weaned to 8L with SpO2 89-94%. Patient reported feeling less anxious about discharge.
1230: Patient transferred to car via wheelchair by PCT on 8L NC. Patient's son driving and patient has 5 large oxygen tanks.
--- NOTE | 2024-02-26 13:26 | W.DCSUMMARY ---
Discharge Summary
Discharge Data
Date of Admission: 02/17/24
Date of Discharge: 02/26/24
-
Pending Results: No
Hospital Course
88 years old male with past medical history significant for ILD, A-Fib and chronic hypoxemia on home O2 who presented to ED complaining of worsening shortness of breath. Patient was recently admitted 01/17 - 01/25 for similar symptoms. He was
treated with steroids and started on supplemental oxygen and his symptoms improved. Patient was discharged on O2 supplementation at 3 lpm as well as a prednisone taper. No fevers / chills. No significant cough / mucus production. Patient was
evaluated by pulmonary doctor was found to have respiratory failure acute on chronic hypoxemic multifactorial failure with underlying interstitial lung disease. Pulmonary felt there was possibility of interstitial lung disease induced by amiodarone
versus Keytruda. Patient was placed on aspiration precautions, incentive spirometry, mucolytic's and intravenous methylprednisolone. He was off amiodarone and Keytruda. He had serial chest radiographs. Pulmonary doctor felt prognosis was guarded
and continue oxygen supplementation. Patient was monitored off antibiotics. Procalcitonin was negative. Patient had history of chronic heart failure with preserved ejection fraction. He was maintained on his Lasix and low-dose metoprolol.
Patient had history of metastatic urothelial cancer. He did not have hematuria. Palliative care was consulted and patient was considering changing his CODE STATUS to DNR. Family and patient wanted a second opinion from [facility]. They had seen "Dony"[facility] before and they wanted to follow-up with upcoming appointment which was scheduled on February 25. Patient remained on 5 to 6 L of oxygen with significant hypoxemia noted and required higher oxygen supplementation with time to recover. Patient
expressed his wishes to continue to follow with his appointment at [place] and he felt better to leave. Discussion regarding safe discharge planning and follow-ups. Patient and family verbalized understanding to potential risk of hypoxemia or
respiratory distress upon transportation. Discussion with pulmonary service regarding further treatment concluded to follow in the office with possibility of repeat imaging studies and possible bronchoscopy of the bronchoscopy with be considered as
high risk of procedure. Patient remained hemodynamically stable. He was able to tolerate diet. manager of information was consulted for home equipments and oxygen requirements. Patient was discharged in a stable condition with home care services.
Discharge Plan
-
Patient Disposition: Home with Home Care
Discharge Diagnosis/Procedures: Acute hypoxic respiratory failure, interstitial lung disease exacerbation, congestive heart failure, atrial fibrillation
Dr Caceres # [phone]
Condition: Serious
Diet: Regular
Activity: As tolerated
Activity Restrictions/Additional Instructions:
Please limit your activity, keep your oxygen on at all times, keep your appointment with your siebel crm developer at [place] on 02/26/2024.
Referrals:
Mildred Ferguson DO [Active] - in one to two weeks
Brant Kurse MD [Family Provider] - in one week
Prescriptions:
New
prednisone 10 mg tablet
60 mg PO DAILY Qty: 82 0RF
Rx Instructions:
60 mg X 4 days,50 mg X 4 days,40 mg X 4 days, 30 mg X 4 days, 20 mg daily until seen by pulmonary.
Continued
finasteride 5 MG tablet
5 mg PO HS
simvastatin 10 MG tablet
10 mg PO HS
dofetilide 250 mcg Capsule
250 mcg PO Q12 30 Days Qty: 60 0RF
furosemide 20 mg Tablet
20 mg PO DAILY 30 Days Qty: 30 0RF
metoprolol succinate 25 mg Tablet Extended Release 24 Hr
25 mg PO DAILY 30 Days Qty: 30 0RF
Eliquis 5 mg Tablet
5 mg PO BID Qty: 0 0RF
dapsone 25 mg Tablet
50 mg PO DAILY
Discontinued
prednisone 10 mg Tablet
See Rx Instructions .ROUTE .COMPLEX Qty: 140 0RF
Rx Instructions:
Take By Mouth:
60 mg daily x7 days, 50 mg daily x7 days,
40 mg daily x7 days, 30 mg daily x7 days,
20 mg daily x7 days
Discharge Orders:
Discharge Patient (As Directed); Ordered 12/10/24
Ordered By: Godfrey Caceres
Discharge Date and Time
Discharge Date/Time: 02/26/24 12:55
Print Language: SAMI
== END 2024-02-26 12:55 | disposition home health service (06) | DRG 196 ==
LOC: IMU 20:36
PROVIDERS: Emergency Medicine; Family Medicine; Internal Medicine; Nurse Practitioner Family; Nurse Practitioner Gerontology; ADMITTING PHYSICIAN Hospitalist; ATTENDING PHYSICIAN Internal Medicine; CONSULT PHYSICIAN Internal Medicine Hospice and Palliative Medicine; EMERGENCY PHYSICIAN Student in an Organized Health Care Education/Training Program; FAMILY PHYSICIAN Internal Medicine; OTHER PHYSICIAN Internal Medicine Critical Care Medicine
DX: J84.9 Interstitial pulmonary disease, unspecified (principal); J96.21 Acute and chronic respiratory failure with hypoxia; I50.32 Chronic diastolic (congestive) heart failure; N17.9 Acute kidney failure, unspecified; E87.1 Hypo-osmolality and hyponatremia; C68.9 Malignant neoplasm of urinary organ, unspecified; C78.00 Secondary malignant neoplasm of unspecified lung; Z11.52 Encounter for screening for COVID-19; I48.0 Paroxysmal atrial fibrillation; N18.30 Chronic kidney disease, stage 3 unspecified
CPT/HCPCS: 36600; 71045; 71046; 80048; 80053; 82805; 82962; 83605; 83735; 83880; 84145; 84484; 85025; 85027; 86140; 87502; 87811; 93005; 94640; 94669; 94761; 97110; 97116; 97163; 97167; 97530; 99285

== ENCOUNTER 2024-03-06 19:09 | Inpatient (IN) | payer OTHER, SELFPAY ==
[2024-03-06] VITALS (14 sets, daily range): BP systolic 81–112; BP diastolic 56–75; BMI 26.3
--- NOTE | 2024-03-06 15:59 | ED.GENMED ---
History of Present Illness
General
Chief Complaint: Breathing Problem
Time Seen by Provider: 03/06/24 15:59
History of Present Illness
History of Present Illness:
TIME OF INITIAL ENCOUNTER: 4 PM
HPI: Pt was admitted here at 02/16-02/25 then transferred to [place] until 03/06. He was 'on a lot of antibiotics'. No clear diagnosis, but was told has metastatic urothelial cancer to the lung. He and have no records upon arrival. He comes
back in today due to worsening shortness of breath.
EXAM:
GENERAL: Pt is ill appearing; hypoxic 88% on 6lpm
HEENT: Moist oral mucosa
CARDIOVASCULAR: No murmurs, normal heart rate, regular rhythm, No chest wall tenderness
PULMONARY: Mild respiratory distress, conversational dyspnea, breath sounds are decreased
ABDOMEN: Soft with no peritoneal signs, no tenderness
NEUROLOGIC: Fair strength all extremities, no coordination deficits
PSYCHIATRIC: Appropriate mental status, normal insight and judgement
EXTREMITIES: Nontender, no edema, moves all extremities equally
SKIN: No rash, no lesions
NUMBER AND COMPLEXITY OF PROBLEMS ADDRESSED AT THE ENCOUNTER
� Chronic conditions affecting care: CHF, aortic stenosis, atrial fibrillation, on chronic home oxygen, possible ILD
� Acute Exacerbation and/or Progression of Chronic Illness: This is an acute but recurring problem
� Differential Diagnosis includes: Metastatic disease, CHF,
AMOUNT AND/OR COMPLEXITY OF DATA TO BE REVIEWED AND ANALYZED
� I performed an independent evaluation of and my interpretation is:
EKG: Sinus 79, LAD, LVH, PACs
CT:
X-rays: Chest x-ray suggest increased density at the left base
Laboratory Studies: White count 10.6, hemoglobin 12.3, sodium 133, creatinine 1.6�higher than prior, troponin 0.066�it peaked at 2.2 last admission, COVID-negative
Other:
� Review of other/old records: The patient was discharged here 9 days ago after being in the hospital for 9 days. I reviewed the CT report from last January that showed scattered foci of acute pneumonitis superimposed on
chronic changes of interstitial lung disease
� Clinical information was obtained by an independent historian: I spoke to family at bedside
� Prescriptions/Medications Considered but not given:
� Further testing considered but not performed:
RISK OF COMPLICATIONS AND/OR MORBIDITY OR MORTALITY OF PATIENT MANAGEMENT
� Social determinants of health affecting care: Lives at home
� Discussion with other providers: Shortly after arrival, I called [facility] to try to obtain more info as pt and are limited historians - left [facility] for pulm at [phone] - awaiting call back.
� Escalation of care including admission/observation vs risk of discharge considered: At 4:30 PM, I spoke to an associate of Dr. Dixon'eros. She shared the course of the last hospitalization at [place]: She tells me that they did
not think that he was having an ILD flare but was given diuresis and treated for pneumonia with cefepime and doxycycline. He also seemed to respond to steroids as well. They did not think that he had PCP/PJP pneumonia. He was discharged on a
prednisone taper. She does not feel the patient needs to be brought back to [place] at this time but would be willing to answer other questions if needed.
ANY OTHER UPDATES:
Past History
Past History
ED Past Medical History: Arrthythmia (On Eliquis), Cancer, COPD, Hypercholesterolemia, Valvular disease, Other (Kidney stones) and Other (Recently diagnosed with interstitial lung disease 08/2023 on home oxygen 3 L/min)
ED Past Surgical History: Cardiac (Porcine valve replacement), Orthopedic and Other (Cystoscopy with ureteral stone removal, and stent placement)
Social History
Tobacco: Non-smoker
Alcohol: Occasional
Drug: None
Personal:
Living: with family
Employment: Retired
Family History
Family History: Negative CAD
Phy Exam
Physical Exam
Physical Exam:
See HPI
Scores
Heart Failure Risk
Heart Failure Risk Score: Not Applicable
Course
Orders/Labs/Results
Orders:
Orders
03/06/24 Dinner
Cholesterol Lowering
Cholesterol Lowering: Sodium, 2 Gram
03/06/24 15:59
Electrocardiogram (*1) Urgent
Reason for Study: Shortness of Breath
EKG- Treatment ONCE
03/06/24 16:01
CR Chest Portable - 1 View Urgent
Comment:
Reason For Exam: hypoxia
Reason Study Needs to be Portable: Patient Unstable
03/06/24 16:04
Complete Blood Count/With Diff Urgent
Comprehensive Metabolic Panel Urgent
NT-proBNP Urgent
Comment: ADD ON
Troponin I Urgent
03/06/24 16:11
0.9% Sodium Chloride 500 ml [Nss] 500 ml IV BOLUS
03/06/24 16:34
Cefepime HCl [Maxipime] 1,000 mg IV NOW STA
Furosemide [Lasix] 40 mg IV NOW STA
MethylPREDNISolone PF [Solu-Medrol Pf] 125 mg IV NOW STA
03/06/24 16:35
Vancomycin [Vancocin] 2,000 mg 0.9% Sodium Chloride 500 ml [Nss] 500 ml IV NOW
03/06/24 16:36
Add On- LAB Urgent
Tests Added?: bnp
03/06/24 16:50
Sterile Water [Sterile Water For Injection] 10 ml .ROUTE .STK-MED ONE
03/06/24 17:57
COVID-19 Antigen Urgent
Source: Nasal Swab
Blood Culture Q30M
MARYANN Source: Blood/Venous
Specimen Description:
Blood Culture Q30M
MARYANN Source: Blood/Venous
Specimen Description:
Influenza A+B Rapid Molecular Urgent
MARYANN Source: Nasal Swab
Specimen Description:
03/06/24 18:02
Admit/Transfer Patient As Directed
Co-Sign Provider:
Level of Care: Inpatient admission
Assign to:: Telemetry
Physician / Group: Joleen Cortes
Diagnosis: acute on chronic hypoxic resp failure
Reason for Telemetry: Chest Pain syndromes
Date to Stop Telemetry: 03/08/24
Time to Stop Telemetry: 11:00
Reason for Hospitalization: acute on chronic hypoxic resp failure
Expected length of stay greater than two midnights?: Yes
ELOS- Estimated Length of Stay in days: 4
I certify the patient meets the requirements for IP care: Yes
PRN Pain Medication Management As Directed
May give lesser potent ordered pain med per pt: Yes
preference::
Protocol:: Medication orders for pain may be administered in a
manner that supports deferring to patient preference
when the pt is:
- Requesting an ordered lesser potent pain medication.
Least to most potent pain medications are defined
as: acetaminophen < NSAID < tramadol < opioids
(morphine, oxycodone, hydromorphone).
- Requesting a lesser dose of the same medication IF
ORDERED.
- Requesting a less intrusive route of administration
if both routes are prescribed by the provider (PO <
IV).
03/06/24 18:03
Code Status As Directed
Resuscitation Status: Full Code
03/06/24 18:17
Doxycycline [Vibramycin] 100 mg PO NOW STA
03/06/24 21:19
0.9% Sodium Chloride 500 ml [Nss] 500 ml IV 60 mls/hr
Acetaminophen [Tylenol] 650 mg PO Q4HPRN PRN
Bisacodyl [Dulcolax] 10 mg RECTAL [id number] PRN
Docusate W/Senna [Senokot-S] 1 tablet PO BIDPRN PRN
Dofetilide [Tikosyn] 250 mcg PO Q12
Guaifenesin [Mucinex] 600 mg PO Q12
Polyethylene Glycol Powder [Miralax] 17 grams PO DAILYPRN PRN
VANCOMYCIN Pharmacy to Dose [VANCOCIN Pharmacy to Dose] 1 each Pharmacy To Prepare [Call Pharmacy To Prepare] 0 ml IV PER PROTOCOL
03/06/24 21:19
Activity As Directed
Activity Level: As Tolerated
Vital Signs As Directed
Frequency: Per unit guidelines
Acapella [Rx Pep / Acapela] [RESP] Routine
03/06/24 21:45
Apixaban [Eliquis] 2.5 mg PO BID
03/06/24 22:00
Troponin I Q6H
Atorvastatin [Lipitor] 10 mg PO HS
Finasteride [Proscar] 5 mg PO HS
03/07/24 04:00
Troponin I Q6H
03/07/24 05:00
Cefepime HCl [Maxipime] 2,000 mg IV Q24H
03/07/24 06:00
Basic Metabolic Panel IN AM
Complete Blood Count/With Diff IN AM
Magnesium IN AM
03/07/24 08:00
Dapsone 50 mg PO DAILY
Doxycycline [Vibramycin] 100 mg PO Q12
Metoprolol Xl [Toprol Xl] 12.5 mg PO DAILY
Prednisone [Deltasone] 40 mg PO DAILY
03/07/24 10:00
Troponin I Q6H
03/08/24 11:00
DC Protocol for Telemetry ONCE
Abnormal Lab Results
03/06/24
16:04
RBC 3.96 L 10^6/uL
(4.70-6.10)
Hgb 12.3 L g/dL
(13.0-18.0)
Hct 37.8 L %
(39.0-52.0)
MCV 95.5 H fL
(80.0-94.0)
MCH 31.1 H pg
(27.0-31.0)
MCHC 32.5 L g/dL
(33.0-37.0)
RDW 16.0 H %
(11.5-14.5)
Plt Count 127 L 10^3/uL
(130-400)
MPV 10.5 H fL
(7.4-10.4)
Abs Immat Gran (auto) 0.1 H 10^3/uL
(0-0.05)
Absolute Neuts (auto) 7.1 H 10^3/uL
(1.4-6.5)
Absolute Monos (auto) 0.7 H 10^3/uL
(0.1-0.6)
Immature Gran % 1.1 H %
(0-0.5)
Sodium 133 L mmol/L
(135-145)
BUN 44 H mg/dl
(9-20)
Creatinine 1.6 H mg/dL
(0.7-1.3)
Glucose 114 H mg/dl
(70-99)
Total Bilirubin 1.8 H mg/dl
(0.2-1.3)
Troponin I 0.066 H* ng/ml
03/06/24 16:04
03/06/24 16:04
Vital Signs
Initial and Last Documented VS:
Initial Vital Signs
Temp Pulse Resp BP Pulse Ox
36.6 C 88 26 95/60 89
03/06/24 15:53 03/06/24 15:53 03/06/24 15:53 03/06/24 15:53 03/06/24 15:53
Last Documented Vital Signs
Temp Pulse Resp BP Pulse Ox
36.4 C 85 18 109/62 94
03/06/24 20:42 03/06/24 20:42 03/06/24 20:42 03/06/24 20:42 03/06/24 20:42
*Critical Care Note
Total Time (30-74mins, 75-104mins- exclusive of procedures): Not Applicable
ED Attending Note
-
Portions of this chart may have been created with voice recognition software.� Occasional wrong word or��sound alike� substitutions may have occurred due to the inherent limitations of voice recognition software.
Discharge Plan
Departure
Patient Disposition: Admit
Date of Disposition: 03/06/24
Time of Disposition: 17:03
Presentation/result/management discussed w/ accepting MD/DO: Hospitalist
Discharge Problem:
Interstitial lung disease
Interventions
Interventions:
*Risk Screen - Suicide Last Done: 03/06/24 15:58
*General Assessment Last Done: 03/06/24 15:58
*Neglect/Abuse Screening Last Done: 03/06/24 15:58
*ED COVID-19 Vaccine History Last Done: 03/06/24 15:54
*Nursing Disposition Last Done: 03/06/24 20:50
ED- Cardiac Assessment Last Done: 03/06/24 16:12
ED- Pulmonary Assessment Last Done: 03/06/24 15:57
Discharge Date and Time
Discharge Date/Time: 03/06/24 20:50
[2024-03-06] MEDS: NSS 500 IV ×2 (16:13→22:17)
[2024-03-06 16:36] LABS: ALT (SGPT) 39 U/L (0-50); AST (SGOT) 34 U/L (17-59); Albumin 3.8 g/dl (3.5-5.0); Alkaline Phosphatase 71 U/L (38-126); Blood Urea Nitrogen 44 mg/dl (9-20); Calcium 9.1 mg/dl (8.4-10.2); Carbon Dioxide 28 mmol/L (22-30); Chloride 98 mmol/L (98-107); Glucose 114 mg/dl (70-99); Potassium 3.9 mmol/L (3.5-5.1); Sodium 133 mmol/L (135-145); Total Bilirubin 1.8 mg/dl (0.2-1.3); Total Protein 6.3 g/dl (6.3-8.2)
[2024-03-06 16:37] LABS: % Basophils 0.5 % (0-2); % Eosinophils 0.5 % (0-6); % Immature Granulocytes 1.1 % (0-0.5); % Lymphocytes 24.6 % (20.5-51.1); % Monocytes 6.9 % (1.7-9.3); % Neutrophils 66.4 % (42.2-75.2); Absolute Basophils 0.1 10^3/uL (0-0.2); Absolute Eosinophils 0.1 10^3/uL (0-0.7); Absolute Immature Granulocytes 0.1 10^3/uL (0-0.05); Absolute Lymphocytes 2.6 10^3/uL (1.2-3.4); Absolute Monocytes 0.7 10^3/uL (0.1-0.6); Absolute Neutrophils 7.1 10^3/uL (1.4-6.5); Hematocrit 37.8 % (39.0-52.0); Hemoglobin 12.3 g/dL (13.0-18.0); Mean Corp Hgb Conc. 32.5 g/dL (33.0-37.0); Mean Corpuscular Hgb 31.1 pg (27.0-31.0); Mean Corpuscular Volume 95.5 fL (80.0-94.0); Mean Platelet Volume 10.5 fL (7.4-10.4); Nucleated Red Blood Cells % 0 % (-); Platelet Count 127 10^3/uL (130-400); Red Blood Cell Count 3.96 10^6/uL (4.70-6.10); White Blood Cell Count 10.6 10^3/uL (4.8-10.8)
[2024-03-06 16:50] LABS: Troponin I 0.066 ng/ml
[2024-03-06] MEDS: SOLU-MEDROL PF 125 MG IV (16:54)
[2024-03-06] MEDS: MAXIPIME 1000 MG IV (16:55)
--- NOTE | 2024-03-06 17:07 | HPS.HSE ---
Family Physician
-
Family Physician: Brant Kruse
Chief Complaint
-
shortness of breath
History of Present Illness
Mr. 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
breath.
Patient states he was feeling well yesterday then this morning woke up and felt very short of breath, his oxygen was reading in the 80's. He increased to 6L. He went to get up and felt very fatigued, had to lay down prompting ER visit. No
fevers/chills. No cough/congestion. He has LE swelling that may be slightly worse than normal.
No nausea/vomiting diarrhea. No rash.
Patient was recently hospitalized here 02/16-02/25 for worsening shortness of breath. It was noted that he had disease progression on CT, he was seen by palliative care and code status changed to DNR. He received steroids and was then seen at [facility]
where he received Cefepime and Doxycycline, and continued on steroids (Dr. Boyd spoke to the Glass Novelty Maker at [facility] who gave this information).
Medical History
Past Medical History
Past Medical History: Reports Other
Additional Past Medical History:
Chronic Hypoxemic Respiratory Failure - Multifactorial
Interstitial Lung Disease
Chronic HFpEF
Paroxysmal Atrial Fibrillation
Valvular Heart Disease
CKD III
Metastatic Urothelial Cell Cancer
Nephrolithiasis
BPH
Past Surgical History: Reports Other
Additional Past Surgical History:
Atrial Valve Repair
DCCV
Multiple Ablations
Loop Recorder
Left Ureterectomy
Multiple TURBT
Hernia Repair
Port Placement
Social History
Tobacco: Non-smoker
Alcohol: None
Drug: None
Family History
Family History: Not pertinent
Allergies / Home Medications
Allergies reflects when Allergies were last updated in [employer].
Home Medications with original date entered in [employer]
Allergy/Medication List:
Allergies
Allergy/AdvReac Type Severity Reaction Status Date / Time
No Known Allergies Allergy Verified 03/06/24 15:55
Home Medications
finasteride 5 mg tablet 5 mg PO HS prostate 05/25/10
simvastatin 10 mg tablet 10 mg PO HS High cholesterol 09/04/19
apixaban 5 mg tablet (Eliquis) 5 mg PO BID Blood Clot Prevention/Tx #0 tabs 01/26/24
dofetilide 250 mcg capsule 250 mcg PO Q12 Arrhythmia 30 days #60 caps 01/26/24
furosemide 20 mg tablet 20 mg PO DAILY Heart Failure 30 days #30 tabs 01/26/24
dapsone 25 mg tablet 50 mg PO DAILY 02/17/24
metoprolol succinate 25 mg tablet,extended release 24 hr 12.5 mg PO DAILY Arrhythmia 03/06/24
prednisone 10 mg tablet 40 mg PO DAILY 03/06/24
Review of Systems
-
History Source: Patient
A 12 point ROS was completed and negative except as noted: Yes
Physical Exam
Vital Signs
Vital Signs
Temp Pulse Resp BP Pulse Ox
97.8 F 78 23 87/58 96
03/06/24 15:53 03/06/24 16:45 03/06/24 16:45 03/06/24 16:40 03/06/24 16:45
Physical Exam
General: No Apparent Distress and Other (flushed appearing)
HEENT: PERRLA
Respiratory: Clear; No Wheezes
Cardiac: S1/S2 and Regular Rhythm
GI: Soft and Non Tender
Musculoskeletal: Other (trace b/l pitting edema )
Skin: Warm and Dry; No Rash
Neuro: AO x 3
Psych: Calm
Laboratory Results
-
03/06/24 16:04
03/06/24 16:04
Laboratory Results
Total Bilirubin 1.8 mg/dl (0.2-1.3) H 03/06/24 16:04
AST 34 U/L (17-59) 03/06/24 16:04
ALT 39 U/L (0-50) 03/06/24 16:04
Alkaline Phosphatase 71 U/L (38-126) 03/06/24 16:04
Troponin I 0.066 ng/ml H* 03/06/24 16:04
Data Reviewed
-
Diagnostic Radiology: Report Reviewed by me
Lab Data: Labs Reviewed by me
Impression/Plan
-
Mr. Omari Trivedi is a 88 yo man with hx metastatic urothelial carcinoma to lungs on Keytruda/Padvec, ILD, Atrial Fibrillation s/p ablation and subsequent cardioversion now on Tikosyn, HFpEF, chronic hypoxemia on home O2 presents to the ER with
shortness of breath.
Triage VS: T 97.8F, P 88, RR 26, BP 95/60, SpO2 89%
LABS: WBC 10.6, Hg 12.3, PLT 127, Na 133, K+ 3.9, CO 28, BUN 44, Cr 1.6, Glucose 114, T. Bili 1.8, Troponin 0.066
EKG: NSR @ 79, PVC's, LVH
CXR:
IMPRESSION:
Findings suspicious for mild, though increased airspace opacity in the lateral left lung base, suspicious for pneumonia.
MAR: IV Methylprednisolone, Vanc/Cefepime
Pneumonia
Acute on chronic hypoxic respiratory failure
Recent hospitalization s/p Cefepime/Doxy course
ILD on steroid course
-patient is on 4L home O2 requiring 6L here
-admit to telemetry
-check Flu/Covid
-continue broad spectrum abx: Vanc/Cefepime, add doxycycline for atypical coverage
-Will hold off on IV steroids for now and continue STORE CLERK home taper until Pulm Eval (he has 3 more days of Pred 40 QD then continue taper)
-O2 support as needed
Non-PR Troponin Elevation in setting of pneumonia
-no chest pain
-continue to trend
Acute on chronic kidney Disease, CKD III
-hold STORE CLERK lasix in setting of hypotension
-give gentle IVF overnight
HFpEF
Hx Aortic Valve Replacement 2007
-TTE 01/21/24 shows EF 59%; Well seated #23 mm stentless freestyle aortic valve with peak/mean gradients
across the aortic valve at 23/11 mmHg. No aortic regurgitation is seen.
-hold STORE CLERK lasix as above
Bladder cancer s/p L robotic nephroureterectomy 09/20/2022, multiple TURBTs with new bladder tumors s/p resection
Metastatic Disease to Lung - currently treatment on hold 2/ AE and multiple hospitalizations
-continue STORE CLERK Dapsone
Hx Atrial Fibrillation
-hx ablation, cardioversion, s/p Tikosyn initiation 01/2024
-continue STORE CLERK Eliquis -* dose adjusted for JUAN - resume 5mg if creatinine improves
BPH
-STORE CLERK Finasteride
HLD
-STORE CLERK Simvastatin
DVT PPx STORE CLERK Eliquis
FULL CODE - this was discussed on admission with family at bedside
76 minutes spent on patient care
[2024-03-06 17:16] LABS: NT-proBNP 1240 pg/ml
[2024-03-06] MEDS: VANCOCIN 540 MG IV (17:21)
[2024-03-06 18:26] LABS: COVID-19 Antigen Negative (Negative)
[2024-03-06] MEDS: VIBRAMYCIN 100 MG PO (19:09)
[2024-03-06] MEDS: TIKOSYN 250 MCG PO (22:21)
[2024-03-06] MEDS: MUCINEX 600 MG PO (22:22)
[2024-03-06] MEDS: LIPITOR 10 MG PO (22:22)
[2024-03-06] MEDS: PROSCAR 5 MG PO (22:22)
[2024-03-06] MEDS: ELIQUIS 2.5 MG PO (22:22)
[2024-03-06 23:21] LABS: Troponin I 0.052 ng/ml
[2024-03-07] MEDS: STERILE WATER FOR INJECTION 10 ML IV ×4 (00:22→23:50)
[2024-03-07] MEDS: MAXIPIME 1000 MG IV ×4 (00:22→23:50)
--- NOTE | 2024-03-07 02:18 | PTCARENOTE ---
2100: received pt via stretcher on 4L O2. pt ambulated with rolling walker to bed. Pt placed on tele #50. Oriented to room and floor rountines. Inst aeronautical engineering technologist alexandre, call alexandre within reach. POC discussed. pt verb understanding.
[2024-03-07 03:45] VITALS: BP 119/78
[2024-03-07 04:54] LABS: % Basophils 0.1 % (0-2); % Eosinophils 1.1 % (0-6); % Immature Granulocytes 1.3 % (0-0.5); % Lymphocytes 9.3 % (20.5-51.1); % Monocytes 3.6 % (1.7-9.3); % Neutrophils 84.6 % (42.2-75.2); Absolute Eosinophils 0.1 10^3/uL (0-0.7); Absolute Immature Granulocytes 0.1 10^3/uL (0-0.05); Absolute Lymphocytes 0.7 10^3/uL (1.2-3.4); Absolute Monocytes 0.3 10^3/uL (0.1-0.6); Absolute Neutrophils 6.4 10^3/uL (1.4-6.5); Hematocrit 32.3 % (39.0-52.0); Hemoglobin 10.7 g/dL (13.0-18.0); Mean Corp Hgb Conc. 33.1 g/dL (33.0-37.0); Mean Corpuscular Hgb 31.4 pg (27.0-31.0); Mean Corpuscular Volume 94.7 fL (80.0-94.0); Mean Platelet Volume 9.7 fL (7.4-10.4); Nucleated Red Blood Cells % 0 % (-); Platelet Count 104 10^3/uL (130-400); Red Blood Cell Count 3.41 10^6/uL (4.70-6.10); Red Cell Dist. Width 16.2 % (11.5-14.5); White Blood Cell Count 7.6 10^3/uL (4.8-10.8)
[2024-03-07 05:22] LABS: Blood Urea Nitrogen 41 mg/dl (9-20); Calcium 8.3 mg/dl (8.4-10.2); Carbon Dioxide 27 mmol/L (22-30); Chloride 104 mmol/L (98-107); Estimated Creatinine Clearance 42 ml/min; Glucose 216 mg/dl (70-99); Magnesium 2.1 mg/dl (1.6-2.3); Potassium 4.6 mmol/L (3.5-5.1); Sodium 135 mmol/L (135-145); eGFR 48.95
[2024-03-07 05:38] LABS: Troponin I 0.038 ng/ml
[2024-03-07 06:00] VITALS: BMI 25.9
[2024-03-07 07:48] VITALS: BP 119/79
--- NOTE | 2024-03-07 08:40 | VNURNOTE ---
Chart reviewed. Patient is current with [facility] nursing, PT, OT. Will continue to follow hospital course and DC plans.
--- NOTE | 2024-03-07 09:01 | W.PN.HOSP.TC ---
Today's Communication/Plan
-
see bold
Assessment / Plan
Assessment / Plan
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
Patient states he was feeling well yesterday then this morning woke up and felt very short of breath, his oxygen was reading in the 80's. He increased to 6L. He went to get up and felt very fatigued, had to lay down prompting ER visit. No
fevers/chills. No cough/congestion. He has LE swelling that may be slightly worse than normal.
No nausea/vomiting diarrhea. No rash.
Patient was recently hospitalized here 02/16-02/25 for worsening shortness of breath. It was noted that he had disease progression on CT, he was seen by palliative care and code status changed to DNR. He received steroids and was then seen at [facility]
where he received Cefepime and Doxycycline, and continued on steroids (Dr. Boyd spoke to the Guard Supervisor at [facility] who gave this information).
CXR:
IMPRESSION:
Findings suspicious for mild, though increased airspace opacity in the lateral left lung base, suspicious for pneumonia.
MAR: IV Methylprednisolone, Vanc/Cefepime
Pneumonia
Acute on chronic hypoxic respiratory failure
Recent hospitalization s/p Cefepime/Doxy course
ILD on steroid course
-At 02/16-02/25, then at [facility] 02/25-03/04, discharged from [facility] 3 days ago before representing to [facility]
-Covid/flu neg. Patient was on 4L home O2, then requiring 6 in the ER
-Continue broad spectrum abx: Vanc/Cefepime, doxycycline for atypical coverage
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
-Now back on 3 L of oxygen, his baseline
-Await pulmonology consult
Transient hypotension
-Resolved
Nonischemic myocardial injury troponin Elevation in setting of pneumonia
-No chest pain, continue to trend
Acute on chronic kidney Disease, CKD III
-Status post gentle IV fluids overnight
-Creatinine 1.4, down from 1.6
-Continue holding Lasix, trend creatinine
HFpEF
Hx Aortic Valve Replacement 2007
-TTE 01/21/24 shows EF 59%; Well seated #23 mm stentless freestyle aortic valve with peak/mean gradients
across the aortic valve at 23/11 mmHg. No aortic regurgitation is seen.
-Continue holding Lasix
Bladder cancer s/p L robotic nephroureterectomy 09/20/2022, multiple TURBTs with new bladder tumors s/p resection
Metastatic Disease to Lung - currently treatment on hold 04/20 AE and multiple hospitalizations
-Continue Dapsone
Hx Atrial Fibrillation
-Hx ablation, cardioversion, s/p Tikosyn initiation 01/2024
-Continue Eliquis
BPH
-FULLING MACHINE OPERATOR Finasteride
HLD
-FULLING MACHINE OPERATOR Simvastatin
DVT prophylaxis�Eliquis
Full code
Total time spent to see the patient on the floor, examine the patient, review data and lab results, discuss treatment plan with patient, nursing staff around 50 minutes.
Physical Exam
General: No acute distress
HEENT: Normocephalic, Atraumatic, EOMI, MMM
Respiratory: Bibasilar crackles
Cardiac: Normal S1/S2, Regular Rate and Rhythm
GI: Soft, Nontender, Nondistended, Normal Bowel Sounds
Extremities: No Clubbing, Cyanosis
Neuro: Nonfocal/Grossly Intact
Psych: Calm, Cooperative
Derm: No Visible lesions
Anticipated Discharge: Within 24 hours
Subjective/Interval History
-
Date of Service: March 07, 2024
Patient reports his fogginess has resolved. He tends to feel foggy when his oxygen levels are low. No shortness of breath, no chest pain. No fever, no vomiting.
Objective Data
-
Labs:
Laboratory Results
03/07/24
04:38
WBC 7.6
Hgb 10.7 L
Hct 32.3 L
Plt Count 104 L
Sodium 135
Potassium 4.6
Chloride 104
Carbon Dioxide 27
BUN 41 H
Creatinine 1.4 H
Glucose 216 H
Calcium 8.3 L
Vital Signs:
Vital Signs
Temp Pulse Resp BP Pulse Ox
97.9 F 80 20 119/79 94
03/07/24 07:48 03/07/24 07:48 03/07/24 07:48 03/07/24 07:48 03/07/24 07:48
I&O
03/06/24 03/07/24 03/08/24
06:59 06:59 06:59
Intake Total 660 / 660
Output Total 400 / 400
Balance 260 / 260
--- NOTE | 2024-03-07 09:25 | PHA.VAN.IN ---
Assessment
- Assessment
Renal Function: Appears elevated from baseline (SCR 1.6-->1.4 vs ~1.1 earlier this month)
Concomitant Antimicrobials: cefepime, doxycycline
Plan
- Plan
Initial / Loading Dose: 2000mg - 03/06 17:21
Maintenance Regimen: dosing by level - give 1000mg x1 to maintain levels today
Monitoring: random 03/08 0600
MRSA Screen: Ordered per protocol
Pharmacokinetics Vancomycin I
- -
Patient Age: 88
Patient Sex: Male
Vancomycin Day #: 1
Indication: Pulmonary/Respiratory
Requesting Provider: Dr. Cortes
Pertinent Antimicrobial Allergies:
NKDA
Height / Weight:
Height 6 ft
Actual Weight 86.591 kg
Pertinent Past Medical History: ILD (steroids & home O2), CKD, Metastatic bladder cancer
- Vital Signs / Lab Results
Temp Pulse Resp BP Pulse Ox
97.9 F 80 20 119/79 94
03/07/24 07:48 03/07/24 07:48 03/07/24 07:48 03/07/24 07:48 03/07/24 07:48
Lab Results - Hematology
03/06/24 03/07/24
16:04 04:38
WBC 10.6 7.6
Lab Results - Chemistry
03/06/24 03/07/24
16:04 04:38
BUN 44 H 41 H
Creatinine 1.6 H 1.4 H
Estimated Creat Clear 42
Albumin 3.8
Microbiology Results
03/06/24 17:57 Influenza Types A & B (MIO) - Final
Nasal Swab Negative for Influenza A & B, NAAT
Negative results must be combined with clinical observations
and patient history.
Nucleic Acid Amplification test (NAAT)performed on the
[employer] platform.
--- NOTE | 2024-03-07 09:58 | CON.PUL ---
Consultation
Consultation Request
Date/Time Consultation Requested: 03/07/2024-11:30 AM
Date/Time Consultation Performed: 03/07/2024-11:30 AM
Requesting Provider: Hospitalist
Performing Provider: Dr. Oneil
Reason for Consultation: Shortness of breath
Medical History
-
Chief Complaint: Shortness of breath
History of Present Illness:
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
after being treated for CHF preserved EF, amiodarone induced pulmonary toxicity followed locally and at [facility]-readmitted with persistent hypoxemia and pulmonary consulted for hypoxemia 02/18/2024-placed on high-dose steroids, treated for congestive
heart failure, and infection-discharged and readmitted to [facility] for couple days with subsequent discharge after additional antibiotics and now returns with progressive hypoxemia and shortness of breath-pulmonary consulted again for hypoxemia
03/07/2024.Overall is feeling fairly well. He was discharged from [facility]. Suddenly had increasing shortness of breath, chest congestion and came to the emergency room with hypoxemia and was noted to have a pneumonia. His FiO2 is being weaned to
4-5 L. When his discharge from the hospital last time he was on 6-8 L. Currently denies any chest pain, chest tightness, pleurisy, hemoptysis, abdominal pain, anorexia or unintentional weight loss.
Past Medical History
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
discharged from the hospital after being treated for CHF preserved EF, amiodaron)
Past Surgical History: None (Atrial valve repair. Multiple ablations. Left ureterectomy. Hernia repair. Port placement.)
Social History
Tobacco: Former Smoker
Alcohol: None
Drug: None
Living: With Family
Occupational Exposures: No known asbestos exposure
Environmental Exposures: No known tuberculosis exposure
Family History
Family History: Reviewed & Not Pertinent
Allergies / Home Medications
Allergies
Allergy/AdvReac Type Severity Reaction Status Date / Time
No Known Allergies Allergy Verified 03/06/24 15:55
Home Medications
�Medication �Instructions �Recorded �Confirmed �Last Taken �Type
finasteride 5 mg tablet 5 mg PO HS prostate 05/25/10 03/06/24 02/16/24 History
simvastatin 10 mg tablet 10 mg PO HS High cholesterol 09/04/19 03/06/24 02/16/24 History
apixaban 5 mg tablet (Eliquis) 5 mg PO BID Blood Clot 01/26/24 03/06/24 02/17/24 Rx
Prevention/Tx #0 tabs
dofetilide 250 mcg capsule 250 mcg PO Q12 Arrhythmia 30 days 01/26/24 03/06/24 02/17/24 Rx
#60 caps
furosemide 20 mg tablet 20 mg PO DAILY Heart Failure 30 01/26/24 03/06/24 02/17/24 Rx
days #30 tabs
dapsone 25 mg tablet 50 mg PO DAILY 02/17/24 03/06/24 02/17/24 History
metoprolol succinate 25 mg 12.5 mg PO DAILY Arrhythmia 03/06/24 03/06/24 Unknown History
tablet,extended release 24 hr
prednisone 10 mg tablet 40 mg PO DAILY 03/06/24 03/06/24 Unknown History
Review of Systems
-
Unable to Obtain full review of systems at this time due to: Other (Per HPI)
Vitals / Labs / Diagnostic Testing
Vital Signs
Temp Pulse Resp BP Pulse Ox
97.9 F 80 20 119/79 94
03/07/24 07:48 03/07/24 07:48 03/07/24 07:48 03/07/24 07:48 03/07/24 07:48
Lab Data
03/07/24 04:38
03/07/24 04:38
Microbiology
03/06/24 17:57 Nasal Swab Influenza Types A & B (MIO) - Final
Negative for Influenza A & B, NAAT
Negative results must be combined with clinical observations
and patient history.
Nucleic Acid Amplification test (NAAT)performed on the
[employer] platform.
Diagnostic Testing:
Physical Exam
-
Exam:
Well-nourished and well-developed in no apparent distress
HEENT-atraumatic, normocephalic
Neck-supple, no JVD, no bruit
Heart-regular rate and rhythm-no murmurs, rubs or gallops
Chest with diminished breath sounds, crackles, no wheezes
Abdomen-soft, nontender, nondistended, no hepatosplenomegaly
Extremities-no cyanosis, clubbing, trace lower extremity edema
Integument-intact, no rashes, lesions or ecchymosis
Neurology-alert and oriented, nonfocal motor and sensory exam
Assessment
-
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
after being treated for CHF preserved EF, amiodarone induced pulmonary toxicity followed locally and at [facility]-readmitted with persistent hypoxemia and pulmonary consulted for hypoxemia 02/18/2024-placed on high-dose steroids, treated for congestive
heart failure, and infection-discharged and readmitted to [facility] for couple days with subsequent discharge after additional antibiotics and now returns with progressive hypoxemia and shortness of breath-pulmonary consulted again for hypoxemia
03/07/2024.
Respiratory failure-acute on top of chronic fawoszxrf-tctfiocacokeuf-jvrnfc, interstitial lung disease, and pneumonia
Pneumonia-with recent hospitalization
Interstitial lung disease-amiodarone versus Keytruda
Elevated troponin
Chronic CHF-preserved EF
PAF
JUAN
Ukfdxm-dosiermvbr-buxjxcsqdh 10.7
Hyperglycemia
DNR/DNI last admission
Conditions present prior to admission:
Recent dosed on hospitalization 02/18/2024-interstitial lung disease flare, infection, CHF-discharged and admitted [facility] for couple days-additional antibiotics
Urothelial cell carcinoma with metastatic disease to the lungs status post bronchoscopy-[facility] October 2023 Jenifero on immunotherapy.
CHF preserved EF.
Diastolic CHF.
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
PAF/ablation x 3/failed sotalol/cardioversion.
Chronic kidney disease.
Nephrolithiasis.
BPH.
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 Left ureterectomy. Hernia repair. Port placement.
Plan
Respiratory status has improved significantly since his previous [place] hospital discharge-decreased FiO2 requirements from 6-8 L down to 4-5 L.
Acute decompensation likely related to infection-recent hospitalization and thus nosocomial/hospital-acquired infections need to be covered.
Supplemental oxygen as needed-currently on 4-5 L.
Aspiration precautions.
Nebulizers.
Prednisone 40 mg daily
Dapsone 50 mg daily.
Mucinex continues
Check cultures.
Sputum culture if able to produce
Cefepime and doxycycline.
DVT prophylaxis-on Eliquis.
GI prophylaxis-on pantoprazole
Nutrition
Early mobilization.
Patient went to Dr. Holly Dixon for second opinion at [facility]-he states that they don't have anything else to offer except immunosuppression/steroids and he would like to stay local and not go back down to [place]
Outpatient pulmonary follow-up
Diagnostic data:
Chest x-ray 02/16/2021-NAD
Chest x-ray 09/08/2023-moderate CHF
Chest x-ray 09/19/2023-stable interstitial and airspace opacifications
Chest x-ray 12/08/2023-bilateral interstitial opacifications suspecting chronic interstitial lung disease
Chest x-ray 01/18/2024-left lower lobe pneumonia superimposed on chronic interstitial infiltrates
Chest x-ray 02/09-bilateral pulmonary parenchymal opacifications with some improvement
Chest x-ray 02/17/2024-bilateral parenchymal opacifications slightly progressed in the left lung and in the right lower lung possibly minimal superimposed alveolar component, at least a component of findings may be chronic
Chest x-ray 03/06/2024-findings suspicious for mild left lung base pneumonia
CT chest 05/03/2021-no significant acute abnormalities, 2 adjacent solid nodules measuring 7 mm not changed since 2019
CT abdomen-small filling defects within the left renal pelvis suspicious for upper urinary tract malignancy, lung bases subsegmental atelectasis
CT abdomen and pelvis 02/06/2023-nonobstructing right renal stone, lung bases are clear
CT abdomen and pelvis 08/06/2023-lung bases minimal bilateral pleural effusions, interstitial edema in the lung bases, post left nephrectomy, nonobstructing right nephrolithiasis
CT chest 09/12/2023-widespread prominence of pulmonary interstitium and new widespread areas of groundglass opacifications, mild mediastinal lymphadenopathy
CT chest 11/27/2023-oblong left upper lobe mass measuring 3.[address] chest 01/25/2024-scattered foci of acute pneumonitis superimposed on chronic changes of interstitial lung disease,
PET scan 11/14/2023-activity seen in presumed urinary bladder/prostate defect from prior surgery likely physiologic, mild FDG uptake lesion upper lobe of the lung, minimal FDG uptake lower lobes of the lungs likely inflammatory
Echocardiogram 02/09-EF 59%, stage III diastolic dysfunction, well-seated number 23 mm aortic valve, PA systolic 35-40
Data Reviewed
-
PFT: Report reviewed by me
EKG: Tracing personally visualized and interpreted and Report reviewed by me
Radiology: Image personally visualized and interpreted and Report reviewed by me
CT Scan: Image personally visualized and interpreted and Report reviewed by me
Medical Tests (Nuc Med, Echo etc): Report reviewed by me
Labs: Labs reviewed by me
Old Records: Reviewed
Total Time Spent with Patient (in minutes): 65
[2024-03-07] MEDS: DAPSONE 50 MG PO (10:17)
[2024-03-07] MEDS: TIKOSYN 250 MCG PO ×2 (10:18→20:25)
[2024-03-07] MEDS: DELTASONE 40 MG PO (10:19)
[2024-03-07] MEDS: VIBRAMYCIN 100 MG PO ×2 (10:19→20:25)
[2024-03-07] MEDS: ELIQUIS 2.5 MG PO (10:19)
[2024-03-07] MEDS: MUCINEX 600 MG PO ×2 (10:20→20:25)
[2024-03-07] MEDS: TOPROL XL 12.5 MG PO (10:20)
[2024-03-07] MEDS: PROTONIX 40 MG PO (10:20)
[2024-03-07 10:43] LABS: Troponin I 0.043 ng/ml
[2024-03-07 11:40] VITALS: BP 140/90
[2024-03-07] MEDS: VANCOCIN 200 IV (13:49)
[2024-03-07 15:24] VITALS: BP 116/69
--- NOTE | 2024-03-07 16:02 | CM ---
Chart reviewed. Initial assessment completed. Pt had a previous admission (02/16-02/25)
Pt lives w/ spouse in a multi-level home- 2 steps to enter.
Pt is independent w/ ambulation. Pt has home O2 (3-4L). Supplier is [employer]
Pt is current w/ [facility]
Address, point of contact and insurance verified
PCP: Dr. Kruse
[facility]
Plan: Likely home; [facility] w/ [facility]
CM will cont to follow for d/c planning
[2024-03-07 19:34] VITALS: BP 96/69
[2024-03-07] MEDS: ELIQUIS 5 MG PO (20:25)
[2024-03-07] MEDS: PROSCAR 5 MG PO (20:25)
[2024-03-07] MEDS: LIPITOR 10 MG PO (20:26)
[2024-03-07 23:24] VITALS: BP 100/63
[2024-03-08 03:54] VITALS: BP 110/74
[2024-03-08 06:09] VITALS: BMI 26.0
[2024-03-08 07:09] LABS: Hematocrit 32.2 % (39.0-52.0); Hemoglobin 10.5 g/dL (13.0-18.0); Mean Corp Hgb Conc. 32.6 g/dL (33.0-37.0); Mean Corpuscular Hgb 31.4 pg (27.0-31.0); Mean Corpuscular Volume 96.4 fL (80.0-94.0); Mean Platelet Volume 10.4 fL (7.4-10.4); Platelet Count 111 10^3/uL (130-400); Red Blood Cell Count 3.34 10^6/uL (4.70-6.10); Red Cell Dist. Width 16.3 % (11.5-14.5); White Blood Cell Count 8.4 10^3/uL (4.8-10.8)
[2024-03-08 07:15] VITALS: BP 134/79
[2024-03-08 07:33] LABS: Blood Urea Nitrogen 38 mg/dl (9-20); Calcium 8.4 mg/dl (8.4-10.2); Carbon Dioxide 27 mmol/L (22-30); Chloride 105 mmol/L (98-107); Estimated Creatinine Clearance 53 ml/min; Glucose 107 mg/dl (70-99); Magnesium 2.2 mg/dl (1.6-2.3); Potassium 4.4 mmol/L (3.5-5.1); Sodium 137 mmol/L (135-145); eGFR > 60.00
[2024-03-08 07:45] LABS: Procalcitonin < 0.05 ng/ml (0.0-0.25)
--- NOTE | 2024-03-08 08:50 | W.PN.PUL3 ---
Today's Communication / Plan
-
Continue to wean down supplemental O2 as tolerated
Maintain SpO2 >90-94%
Check ambulatory pulse oximetry prior to discharge
Outpatient imaging with CXR in 4 to 6 weeks
PT/OT
Mucolytics
Antibiotics
Hopefully can be discharged home in the next 1-2 days
Assessment
-
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
after being treated for CHF preserved EF, amiodarone induced pulmonary toxicity followed locally and at [facility]-readmitted with persistent hypoxemia and pulmonary consulted for hypoxemia 02/18/2024-placed on high-dose steroids, treated for congestive
heart failure, and infection-discharged and readmitted to [facility] for couple days with subsequent discharge after additional antibiotics and now returns with progressive hypoxemia and shortness of breath-pulmonary consulted again for hypoxemia
03/07/2024.
Impression:
Respiratory failure-acute on top of chronic xtnixyfey-puznpdmmelxobf-nktmvj, interstitial lung disease, and pneumonia
Pneumonia-with recent hospitalization at [place] from 02/17 - 03/04/2024
Interstitial lung disease-amiodarone versus Keytruda-induced
Hx of metastatic urothelial carcinoma with mets to SHAILESH
Elevated troponin � peaked at 0.066 on 03/06/2024
Chronic CHF-preserved EF
PAF
JUAN � resolved
Anemia
Hyperglycemia � resolved
DNR/DNI last admission, now full code
Conditions present prior to admission:
Recent dosed on hospitalization 02/18/2024-interstitial lung disease flare, infection, CHF-discharged and admitted [facility] for couple days-additional antibiotics
Urothelial cell carcinoma with metastatic disease to the lungs status post bronchoscopy-[facility] October 2023 Lan[place] on immunotherapy (not currently on Keytruda given recent pneumonitis)
CHF preserved EF.
Diastolic CHF.
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
PAF/ablation x 3/failed sotalol/cardioversion.
Chronic kidney disease.
Nephrolithiasis.
BPH.
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 Left ureterectomy. Hernia repair. Port placement.
Plan
Respiratory status has improved significantly since his previous [facility] discharge-decreased FiO2 requirements from 6-8 L down to 2 L.
Acute decompensation likely related to infection-recent hospitalization and thus nosocomial/hospital-acquired infections need to be covered; physical deconditioning also likely component
Supplemental oxygen as needed-currently on 2 L --> check ambulatory pulse oximetry prior to discharge
Aspiration precautions.
Nebulizers as needed - not currently bronchospastic
Prednisone 40 mg daily with slow outpatient wean
Dapsone 50 mg daily.
Mucinex continues
Check cultures.
Sputum culture if able to produce
Blood cultures from 03/06/2024 show NGTD
Cefepime and doxycycline s/p IV vancomycin (03/06 - 03/08/2024)
DVT prophylaxis-on Eliquis.
GI prophylaxis-on pantoprazole
Nutrition
Early mobilization.
Patient went to Dr. Holly Dixon for second opinion at [facility]-he states that they don't have anything else to offer except immunosuppression/steroids and he would like to stay local and not go back down to [place]
Outpatient pulmonary follow-up with Dr. Faustin
Disposition efforts: he could possibly go home tomorrow if he feels well especially during ambulation.
Pulmonary service will continue to follow along while he remains hospitalized.
Diagnostic data:
Chest x-ray 02/16/2021-NAD
Chest x-ray 09/08/2023-moderate CHF
Chest x-ray 09/19/2023-stable interstitial and airspace opacifications
Chest x-ray 12/08/2023-bilateral interstitial opacifications suspecting chronic interstitial lung disease
Chest x-ray 01/18/2024-left lower lobe pneumonia superimposed on chronic interstitial infiltrates
Chest x-ray 02/09-bilateral pulmonary parenchymal opacifications with some improvement
Chest x-ray 02/17/2024-bilateral parenchymal opacifications slightly progressed in the left lung and in the right lower lung possibly minimal superimposed alveolar component, at least a component of findings may be chronic
Chest x-ray 03/06/2024-findings suspicious for mild left lung base pneumonia
CT chest 05/03/2021-no significant acute abnormalities, 2 adjacent solid nodules measuring 7 mm not changed since [address]
CT abdomen-small filling defects within the left renal pelvis suspicious for upper urinary tract malignancy, lung bases subsegmental atelectasis
CT abdomen and pelvis 02/06/2023-nonobstructing right renal stone, lung bases are clear
CT abdomen and pelvis 08/06/2023-lung bases minimal bilateral pleural effusions, interstitial edema in the lung bases, post left nephrectomy, nonobstructing right nephrolithiasis
CT chest 09/12/2023-widespread prominence of pulmonary interstitium and new widespread areas of groundglass opacifications, mild mediastinal lymphadenopathy
CT chest 11/27/2023-oblong left upper lobe mass measuring 3.[address] chest 01/25/2024-scattered foci of acute pneumonitis superimposed on chronic changes of interstitial lung disease,
PET scan 11/14/2023-activity seen in presumed urinary bladder/prostate defect from prior surgery likely physiologic, mild FDG uptake lesion upper lobe of the lung, minimal FDG uptake lower lobes of the lungs likely inflammatory
Echocardiogram 02/09-EF 59%, stage III diastolic dysfunction, well-seated number 23 mm aortic valve, PA systolic 35-40
Total time spent today was 37 minutes for this encounter. Time includes reviewing laboratory test/imaging results, reviewing pertinent medical records, obtaining and reviewing medical history, performing an appropriate exam, ordering medications,
tests and procedures. Time also includes documentation of this encounter, coordinating patient care and communicating with other healthcare professionals. Total time does not include separately billed tests performed on this date of service.
Subjective Data
-
Date of Service:
Date of Service: March 08, 2024
Chief Complaint: Pulmonary Follow Up
Subjective:
Patient seen and evaluated today at bedside. He is eager to go home. He is feeling better today. Currently on 2 L/min and saturating 94%. He denies chest pain, ANDREW, abdominal pain, fevers or chills.
Review of Systems
General: Other (Negative unless mentioned above)
Objective Data
Data Reviewed
Vital Signs / I&O / Oxygen:
Vital Signs
Temp Pulse Resp BP Pulse Ox
97.7 F 79 18 134/79 96
03/08/24 07:15 03/08/24 09:18 03/08/24 07:15 03/08/24 09:18 03/08/24 07:15
Intake and Output
03/07/24 03/08/24 03/09/24
06:59 06:59 06:59
Intake Total 660 / 660 1380 / 1380
Output Total 400 / 400 500 / 500
Balance 260 / 260 880 / 880
SaO2 96
Nasal Cannula flow liters per 2
minute
Physical Exam
General: Respiratory Distress (negative), Comfortable, Chills (negative), Sweats (negative) and Good Appetite
HEENT: Normocephalic and Anicteric
Cardiovascular: S1-S2, Murmur (DARIN heard across precordium) and Peripheral Edema (+1 lower extremity edema at the ankles bilaterally)
Respiratory: Wheeze (negative), Crackles (negative), Rhonchi (negative), Non-Labored Respirations and Other (Coarse breath sounds bilaterally)
GI: Soft, Non Distended, Non Tender and Normal Bowel Sounds
Neurology: AO x 3 and Tremors (negative)
Skin: Warm, Dry, Cyanosis (negative) and Jaundice (negative)
Labs/Micro/Reports
Lab Data
03/08/24 06:45
03/08/24 06:45
Microbiology
03/06/24 17:57 Blood/Venous Blood Culture - Preliminary
No Growth in 24 hours- Final report to follow
03/06/24 17:57 Blood/Venous Blood Culture - Preliminary
No Growth in 24 hours- Final report to follow
03/07/24 14:40 Nose Nasal Screen MRSA (PCR) - Final
MRSA not detected - performed by PCR methodology.
03/06/24 17:57 Nasal Swab Influenza Types A & B (MIO) - Final
Negative for Influenza A & B, NAAT
Negative results must be combined with clinical observations
and patient history.
Nucleic Acid Amplification test (NAAT)performed on the
[employer] platform.
--- NOTE | 2024-03-08 09:03 | W.PN.HOSP.TC ---
Today's Communication/Plan
-
see bold
Assessment / Plan
Assessment / Plan
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
Patient states he was feeling well yesterday then this morning woke up and felt very short of breath, his oxygen was reading in the 80's. He increased to 6L. He went to get up and felt very fatigued, had to lay down prompting ER visit. No
fevers/chills. No cough/congestion. He has LE swelling that may be slightly worse than normal.
No nausea/vomiting diarrhea. No rash.
Patient was recently hospitalized here 02/16-02/25 for worsening shortness of breath. It was noted that he had disease progression on CT, he was seen by palliative care and code status changed to DNR. He received steroids and was then seen at [facility]
where he received Cefepime and Doxycycline, and continued on steroids (Dr. Boyd spoke to the Lumber Stacker Operator at [facility] who gave this information).
CXR:
IMPRESSION:
Findings suspicious for mild, though increased airspace opacity in the lateral left lung base, suspicious for pneumonia.
MAR: IV Methylprednisolone, Vanc/Cefepime
Pneumonia
Acute on chronic hypoxic respiratory failure
Recent hospitalization s/p Cefepime/Doxy course
ILD on steroid course
-At 02/16-02/25, then at [facility] 02/25-03/04, discharged from [facility] 3 days ago before representing to [facility]
-Covid/flu neg. blood culture negative, patient was on 4L home O2, then requiring 6 in the ER
-Continue broad spectrum abx: Cefepime, doxycycline for atypical coverage. MRSA PCR negative, will discontinue vancomycin.
-Continue INHALATION THERAPIST prednisone taper, no need for IV steroids
-Now back on 2-3 L of oxygen, his baseline
Transient hypotension
-Resolved
Nonischemic myocardial injury troponin Elevation in setting of pneumonia
-No chest pain, continue to trend
Acute on chronic kidney Disease, CKD III
-Status post gentle IV fluids overnight
-Resolved status post IV Lasix
-Continue holding Lasix. Likely can resume 03/09
HFpEF
Hx Aortic Valve Replacement 2007
-TTE 01/21/24 shows EF 59%; Well seated #23 mm stentless freestyle aortic valve with peak/mean gradients
across the aortic valve at 23/11 mmHg. No aortic regurgitation is seen.
-Continue holding Lasix
Bladder cancer s/p L robotic nephroureterectomy 09/20/2022, multiple TURBTs with new bladder tumors s/p resection
Metastatic Disease to Lung - currently treatment on hold 04/20 AE and multiple hospitalizations
-Continue Dapsone
Hx Atrial Fibrillation
-Hx ablation, cardioversion, s/p Tikosyn initiation 01/2024
-Continue Eliquis
BPH
-INHALATION THERAPIST Finasteride
HLD
-INHALATION THERAPIST Simvastatin
DVT prophylaxis�Eliquis
Full code
Total time spent to see the patient on the floor, examine the patient, review data and lab results, discuss treatment plan with patient, nursing staff around 40 minutes.
Physical Exam
General: No acute distress
HEENT: Normocephalic, Atraumatic, EOMI, MMM
Respiratory: Bibasilar crackles
Cardiac: Normal S1/S2, Regular Rate and Rhythm
GI: Soft, Nontender, Nondistended, Normal Bowel Sounds
Extremities: No Clubbing, Cyanosis
Neuro: Nonfocal/Grossly Intact
Psych: Calm, Cooperative
Derm: No Visible lesions
Anticipated Discharge: 24 - 48 hours
Subjective/Interval History
-
Date of Service: March 08, 2024
No recurrence of fogginess. No chest pain, no shortness of breath. No fever, no vomiting. No coughing.
Objective Data
-
Labs:
Laboratory Results
03/08/24
06:45
WBC 8.4
Hgb 10.5 L
Hct 32.2 L
Plt Count 111 L
Sodium 137
Potassium 4.4
Chloride 105
Carbon Dioxide 27
BUN 38 H
Creatinine 1.1
Glucose 107 H
Calcium 8.4
Vital Signs:
Vital Signs
Temp Pulse Resp BP Pulse Ox
97.7 F 79 18 134/79 96
03/08/24 07:15 03/08/24 07:15 03/08/24 07:15 03/08/24 07:15 03/08/24 07:15
I&O
03/07/24 03/08/24 03/09/24
06:59 06:59 06:59
Intake Total 660 / 660 1380 / 1380
Output Total 400 / 400 500 / 500
Balance 260 / 260 880 / 880
--- NOTE | 2024-03-08 09:07 | PHA.VAN.FU ---
Vancomycin Assessment / Plan
- Assessment
Renal Function: SCR Decreasing (back to baseline SCr)
WBC's are: WNL
Concomitant Antimicrobials: cefepime, doxycycline
- Assessment - Therapeutic Drug Monitoring
Random Level: 11 ~16 h post 1 g dose
- Dosing Plan
Adjust Regimen to: vanc 1250mg q24h
New Regimen Predicts: AUC (445), Peak (30), Trough (10)
- Monitoring Plan
No level(s) ordered at this time: consider in the upcoming days
- Follow Up
Pharmacy will continue to follow.
Vancomycin Follow UP
- -
Patient Age: 88
Patient Sex: Male
Vancomycin Day #: 2
Indication: Pulmonary/Respiratory
Requesting Provider: Dr. Cortes
Pertinent Antimicrobial Allergies:
NKDA
Height / Weight:
Height 6 ft
Actual Weight 86.863 kg
Pertinent Past Medical History: ILD (steroids & home O2), CKD, Metastatic bladder cancer
- Vital Signs / Lab Results
Temp Pulse Resp BP Pulse Ox
97.7 F 79 18 134/79 96
03/08/24 07:15 03/08/24 07:15 03/08/24 07:15 03/08/24 07:15 03/08/24 07:15
Lab Results - Hematology
03/06/24 03/07/24 03/08/24
16:04 04:38 06:45
WBC 10.6 7.6 8.4
Lab Results - Chemistry
03/06/24 03/07/24 03/08/24
16:04 04:38 06:45
BUN 44 H 41 H 38 H
Creatinine 1.6 H 1.4 H 1.1
Estimated Creat Clear 42 53
Albumin 3.8
Microbiology Results
03/06/24 17:57 Blood Culture - Preliminary
Blood/Venous No Growth in 24 hours- Final report to follow
03/06/24 17:57 Blood Culture - Preliminary
Blood/Venous No Growth in 24 hours- Final report to follow
03/07/24 14:40 Nasal Screen MRSA (PCR) - Final
Nose MRSA not detected - performed by PCR methodology.
03/06/24 17:57 Influenza Types A & B (MIO) - Final
Nasal Swab Negative for Influenza A & B, NAAT
Negative results must be combined with clinical observations
and patient history.
Nucleic Acid Amplification test (NAAT)performed on the
[employer] platform.
Therapeutic Drug Monitoring
Random Vancomycin 11.0 ug/ml 03/08/24 06:45
[2024-03-08] MEDS: DELTASONE 40 MG PO (09:17)
[2024-03-08] MEDS: DAPSONE 50 MG PO (09:17)
[2024-03-08] MEDS: TIKOSYN 250 MCG PO ×2 (09:17→21:20)
[2024-03-08] MEDS: ELIQUIS 5 MG PO ×2 (09:18→21:20)
[2024-03-08] MEDS: PROTONIX 40 MG PO (09:18)
[2024-03-08] MEDS: VIBRAMYCIN 100 MG PO ×2 (09:18→21:20)
[2024-03-08] MEDS: MUCINEX 600 MG PO ×2 (09:18→21:20)
[2024-03-08] MEDS: TOPROL XL 12.5 MG PO (09:18)
[2024-03-08] MEDS: STERILE WATER FOR INJECTION 10 ML IV ×2 (09:19→17:26)
[2024-03-08] MEDS: MAXIPIME 1000 MG IV ×2 (09:20→17:26)
[2024-03-08] MEDS: VANCOCIN 275 MG IV (10:31)
[2024-03-08 11:23] VITALS: BP 106/64
[2024-03-08 15:51] VITALS: BP 95/63
[2024-03-08] MEDS: LIPITOR 10 MG PO (21:20)
[2024-03-08] MEDS: PROSCAR 5 MG PO (21:20)
[2024-03-08 23:46] VITALS: BP 121/75
[2024-03-09] MEDS: STERILE WATER FOR INJECTION 10 ML IV ×3 (00:49→16:48)
[2024-03-09] MEDS: MAXIPIME 1000 MG IV ×3 (00:49→16:48)
[2024-03-09 06:00] VITALS: BMI 25.8
[2024-03-09 07:00] VITALS: BP 125/81
[2024-03-09 07:43] LABS: Hemoglobin 11.3 g/dL (13.0-18.0); Mean Corp Hgb Conc. 32.3 g/dL (33.0-37.0); Mean Corpuscular Volume 95.9 fL (80.0-94.0); Platelet Count 101 10^3/uL (130-400); Red Blood Cell Count 3.65 10^6/uL (4.70-6.10); Red Cell Dist. Width 16.3 % (11.5-14.5); White Blood Cell Count 7.5 10^3/uL (4.8-10.8)
[2024-03-09 08:00] LABS: Blood Urea Nitrogen 33 mg/dl (9-20); Calcium 8.6 mg/dl (8.4-10.2); Carbon Dioxide 28 mmol/L (22-30); Chloride 103 mmol/L (98-107); Estimated Creatinine Clearance 58 ml/min; Glucose 92 mg/dl (70-99); Potassium 4.2 mmol/L (3.5-5.1); Sodium 134 mmol/L (135-145); eGFR > 60.00
--- NOTE | 2024-03-09 08:36 | W.PN.HOSP.TC ---
Today's Communication/Plan
-
see bold
Assessment / Plan
Assessment / Plan
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
Patient states he was feeling well yesterday then this morning woke up and felt very short of breath, his oxygen was reading in the 80's. He increased to 6L. He went to get up and felt very fatigued, had to lay down prompting ER visit. No
fevers/chills. No cough/congestion. He has LE swelling that may be slightly worse than normal.
No nausea/vomiting diarrhea. No rash.
Patient was recently hospitalized here 02/16-02/25 for worsening shortness of breath. It was noted that he had disease progression on CT, he was seen by palliative care and code status changed to DNR. He received steroids and was then seen at [facility]
where he received Cefepime and Doxycycline, and continued on steroids (Dr. Boyd spoke to the Potato Chip Cooker Machine at [facility] who gave this information).
CXR:
IMPRESSION:
Findings suspicious for mild, though increased airspace opacity in the lateral left lung base, suspicious for pneumonia.
MAR: IV Methylprednisolone, Vanc/Cefepime
Pneumonia
Acute on chronic hypoxic respiratory failure
Recent hospitalization s/p Cefepime/Doxy course
ILD on steroid course
-At 02/16-02/25, then at [facility] 02/25-03/04, discharged from [facility] 3 days ago before representing to [facility] ER
-Covid/flu neg. blood culture negative, patient was on 4L home O2, then requiring 6 in the ER
-Continue broad spectrum abx: Cefepime, doxycycline D3 for atypical coverage. MRSA PCR negative, discontinued vancomycin.
-Continue WINDOW SHADE RING SEWER prednisone taper, no need for IV steroids
-Now on 2 L of oxygen, better than his baseline of 3-4 L
-Patient feels well at rest, but became hypoxic requiring 10 L with activity
-His ILD is a terminal diagnosis, but he and his family wish to remain full code
Transient hypotension
-Resolved
Nonischemic myocardial injury troponin Elevation in setting of pneumonia
-No chest pain, continue to trend
Acute on chronic kidney Disease, CKD III
-Status post gentle IV fluids overnight
-Resolved
HFpEF
Hx Aortic Valve Replacement 2007
-TTE 01/21/24 shows EF 59%; Well seated #23 mm stentless freestyle aortic valve with peak/mean gradients
across the aortic valve at 23/11 mmHg. No aortic regurgitation is seen.
-Resume Lasix 03/09
Bladder cancer s/p L robotic nephroureterectomy 09/20/2022, multiple TURBTs with new bladder tumors s/p resection
Metastatic Disease to Lung - currently treatment on hold 04/20 AE and multiple hospitalizations
-Continue Dapsone
Hx Atrial Fibrillation
-Hx ablation, cardioversion, s/p Tikosyn initiation 01/2024
-Continue Eliquis
BPH
-WINDOW SHADE RING SEWER Finasteride
HLD
-WINDOW SHADE RING SEWER Simvastatin
DVT prophylaxis�Eliquis
Full code
Total time spent to see the patient on the floor, examine the patient, review data and lab results, discuss treatment plan with patient, nursing staff around 41 minutes.
Physical Exam
General: No acute distress
HEENT: Normocephalic, Atraumatic, EOMI, MMM
Respiratory: Bibasilar crackles
Cardiac: Normal S1/S2, Regular Rate and Rhythm
GI: Soft, Nontender, Nondistended, Normal Bowel Sounds
Extremities: No Clubbing, Cyanosis
Neuro: Nonfocal/Grossly Intact
Psych: Calm, Cooperative
Derm: No Visible lesions
Anticipated Discharge: 24 - 48 hours
Subjective/Interval History
-
Date of Service: March 09, 2024
Patient denies fogginess. Denies shortness of breath, denies coughing. No fever, no vomiting.
Objective Data
-
Labs:
Laboratory Results
03/09/24
07:01
WBC 7.5
Hgb 11.3 L
Hct 35.0 L
Plt Count 101 L
Sodium 134 L
Potassium 4.2
Chloride 103
Carbon Dioxide 28
BUN 33 H
Creatinine 1.0
Glucose 92
Calcium 8.6
Vital Signs:
Vital Signs
Temp Pulse Resp BP Pulse Ox
97.4 F 78 18 121/75 95
03/08/24 23:46 03/08/24 23:46 03/08/24 23:46 03/08/24 23:46 03/08/24 23:46
I&O
03/08/24 03/09/24 03/10/24
06:59 06:59 06:59
Intake Total 1380 / 1380 480 / 480
Output Total 500 / 500 500 / 500
Balance 880 / 880 -20 / -20
--- NOTE | 2024-03-09 08:49 | W.PN.PUL3 ---
Today's Communication / Plan
-
Continue to wean down supplemental O2 as tolerated
Maintain SpO2 >90-94%
Check ambulatory pulse oximetry prior to discharge
Prednisone 40 mg daily with slow outpatient wean; Dapsone for PCP ppx
Outpatient imaging with CXR in 4 to 6 weeks
PT/OT
Mucolytics
Antibiotics
Pulmonary service will continue to follow along while he remains hospitalized
Assessment
-
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
after being treated for CHF preserved EF, amiodarone induced pulmonary toxicity followed locally and at [facility]-readmitted with persistent hypoxemia and pulmonary consulted for hypoxemia 02/18/2024-placed on high-dose steroids, treated for congestive
heart failure, and infection-discharged and readmitted to [facility] for couple days with subsequent discharge after additional antibiotics and now returns with progressive hypoxemia and shortness of breath-pulmonary consulted again for hypoxemia
03/07/2024.
Impression:
Acute on chronic hypoxic respiratory failure - multifactorial with large component of physical deconditioning with poor pulmonary reserve from Hx of ILD, recent pneumonitis and pneumonia
Pneumonia-with recent hospitalization at [facility] from 02/17 - 03/04/2024
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
Hx of metastatic urothelial carcinoma with mets to SHAILESH
Elevated troponin � peaked at 0.066 on 03/06/2024
Chronic CHF-preserved EF
PAF
JUAN � resolved
Anemia
Hyperglycemia � resolved
DNR/DNI last admission, now full code
Conditions present prior to admission:
Recent dosed on hospitalization 02/18/2024-interstitial lung disease flare, infection, CHF-discharged and admitted [facility] for couple days-additional antibiotics
Urothelial cell carcinoma with metastatic disease to the lungs status post bronchoscopy-[facility] October 2023 Lanfranco on immunotherapy (not currently on Keytruda given recent pneumonitis)
CHF preserved EF.
Diastolic CHF.
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
PAF/ablation x 3/failed sotalol/cardioversion.
Chronic kidney disease.
Nephrolithiasis.
BPH.
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 Left ureterectomy. Hernia repair. Port placement.
Plan
Respiratory status had improved significantly since his previous [facility] discharge, but he still is having issues with hypoxia during ambulation
Acute decompensation likely related to infection-recent hospitalization and thus nosocomial/hospital-acquired infections need to be covered; physical deconditioning also likely large contributor here
Supplemental oxygen as needed-currently on 2-3 L --> check ambulatory pulse oximetry prior to discharge (checked on 03/09/2024 and he was desaturating to 86% while on 8-10L/min midflow)
Aspiration precautions.
Nebulizers as needed - not currently bronchospastic
Prednisone 40 mg daily with slow outpatient wean
Dapsone 50 mg daily.
Mucinex continues
Check cultures.
Sputum culture if able to produce
Blood cultures from 03/06/2024 show NGTD
Cefepime and doxycycline (started 03/06) s/p IV vancomycin (03/06 - 03/08/2024)
Would complete at least a 7 day course assuming he continues to clinically improve and remains afebrile for 48 hours prior to stopping antibiotic
DVT prophylaxis-on Eliquis.
GI prophylaxis-on pantoprazole
Nutrition
Early mobilization.
Patient went to Dr. Holly Dixon for second opinion at [facility]-he states that they don't have anything else to offer except immunosuppression/steroids and he would like to stay local and not go back down to [facility]
Outpatient pulmonary follow-up with Dr. Faustin
Disposition efforts: consult PT/OT --> he would benefit from rehab prior to going back home given his exquisite generalized weakness with hypoxia with exertion
Pulmonary service will continue to follow along while he remains hospitalized.
Diagnostic data:
Chest x-ray 02/16/2021-NAD
Chest x-ray 09/08/2023-moderate CHF
Chest x-ray 09/19/2023-stable interstitial and airspace opacifications
Chest x-ray 12/08/2023-bilateral interstitial opacifications suspecting chronic interstitial lung disease
Chest x-ray 01/18/2024-left lower lobe pneumonia superimposed on chronic interstitial infiltrates
Chest x-ray 02/09-bilateral pulmonary parenchymal opacifications with some improvement
Chest x-ray 02/17/2024-bilateral parenchymal opacifications slightly progressed in the left lung and in the right lower lung possibly minimal superimposed alveolar component, at least a component of findings may be chronic
Chest x-ray 03/06/2024-findings suspicious for mild left lung base pneumonia
CT chest 05/03/2021-no significant acute abnormalities, 2 adjacent solid nodules measuring 7 mm not changed since 2019
CT abdomen-small filling defects within the left renal pelvis suspicious for upper urinary tract malignancy, lung bases subsegmental atelectasis
CT abdomen and pelvis 02/06/2023-nonobstructing right renal stone, lung bases are clear
CT abdomen and pelvis 08/06/2023-lung bases minimal bilateral pleural effusions, interstitial edema in the lung bases, post left nephrectomy, nonobstructing right nephrolithiasis
CT chest 09/12/2023-widespread prominence of pulmonary interstitium and new widespread areas of groundglass opacifications, mild mediastinal lymphadenopathy
CT chest 11/27/2023-oblong left upper lobe mass measuring 3.[address] chest 01/25/2024-scattered foci of acute pneumonitis superimposed on chronic changes of interstitial lung disease,
PET scan 11/14/2023-activity seen in presumed urinary bladder/prostate defect from prior surgery likely physiologic, mild FDG uptake lesion upper lobe of the lung, minimal FDG uptake lower lobes of the lungs likely inflammatory
Echocardiogram 01/21/24-EF 59%, stage III diastolic dysfunction, well-seated number 23 mm aortic valve, PA systolic 35-40
Total time spent today was 39 minutes for this encounter. Time includes reviewing laboratory test/imaging results, reviewing pertinent medical records, obtaining and reviewing medical history, performing an appropriate exam, ordering medications,
tests and procedures. Time also includes documentation of this encounter, coordinating patient care and communicating with other healthcare professionals. Total time does not include separately billed tests performed on this date of service.
Subjective Data
-
Date of Service:
Date of Service: March 09, 2024
Chief Complaint: Pulmonary Follow Up
Subjective:
Respiratory therapist attempted ambulatory pulse oximetry today: at rest on 3 L/min his SpO2 was 88%, and he needed up to 10 L/min on walk back to the room. Saturations were in the 86�87% range even on 8-10 L/min of O2. He feels more short of
breath/symptomatic today when I saw him. He says that he is actually breathing well at rest and is sleeping well with no issues, but when he exerts himself he gets very short of breath. Denies any coughing, chest tightness, headache, abdominal
pain, nausea, diarrhea, fevers or chills.
I called and spoke to his , Patience, and answered all of her questions.
Review of Systems
General: Other (Negative unless mentioned above)
Objective Data
Data Reviewed
Vital Signs / I&O / Oxygen:
Vital Signs
Temp Pulse Resp BP Pulse Ox
97.4 F 75 18 125/81 92
03/09/24 07:00 03/09/24 07:00 03/09/24 07:00 03/09/24 07:00 03/09/24 07:00
Intake and Output
03/08/24 03/09/24 03/10/24
06:59 06:59 06:59
Intake Total 1380 / 1380 480 / 480
Output Total 500 / 500 500 / 500
Balance 880 / 880 -20 / -20
SaO2 92
Nasal Cannula flow liters per 2
minute
Physical Exam
General: Respiratory Distress (negative), Comfortable, Chills (negative), Sweats (negative) and Good Appetite
HEENT: Normocephalic and Anicteric
Cardiovascular: S1-S2, Murmur (DARIN heard across precordium) and Peripheral Edema (Trace lower extremity edema at the ankles bilaterally)
Respiratory: Wheeze (negative), Crackles (Bilateral (L >R)), Rhonchi (negative) and Non-Labored Respirations
GI: Soft, Non Distended, Non Tender and Normal Bowel Sounds
Neurology: AO x 3 and Tremors (negative)
Skin: Warm, Dry, Cyanosis (negative) and Jaundice (negative)
Labs/Micro/Reports
Lab Data
03/09/24 07:01
03/09/24 07:01
Microbiology
03/06/24 17:57 Blood/Venous Blood Culture - Preliminary
No Growth in 48 hours- Final report to follow
03/06/24 17:57 Blood/Venous Blood Culture - Preliminary
No Growth in 48 hours- Final report to follow
03/07/24 14:40 Nose Nasal Screen MRSA (PCR) - Final
MRSA not detected - performed by PCR methodology.
03/06/24 17:57 Nasal Swab Influenza Types A & B (MIO) - Final
Negative for Influenza A & B, NAAT
Negative results must be combined with clinical observations
and patient history.
Nucleic Acid Amplification test (NAAT)performed on the
[employer] platform.
[2024-03-09] MEDS: DAPSONE 50 MG PO (09:36)
[2024-03-09] MEDS: LASIX 20 MG PO (09:37)
[2024-03-09] MEDS: ELIQUIS 5 MG PO ×2 (09:37→20:31)
[2024-03-09] MEDS: DELTASONE 40 MG PO (09:37)
[2024-03-09] MEDS: MUCINEX 600 MG PO ×2 (09:38→20:31)
[2024-03-09] MEDS: PROTONIX 40 MG PO (09:38)
[2024-03-09] MEDS: TIKOSYN 250 MCG PO ×2 (09:39→20:31)
[2024-03-09] MEDS: VIBRAMYCIN 100 MG PO ×2 (09:40→20:31)
[2024-03-09] MEDS: TOPROL XL 12.5 MG PO (09:40)
--- NOTE | 2024-03-09 10:40 | RESPNOTE ---
Home 02assessment done as order
per pt, he is 02 3L 02 at baseline ATC at home and has 02 concentrator that goes up to 10L
started assessment with 3L at rest with 02 sats of 88 noted
4L 86% pt walked roughly 10 feet
6L 87% pt walked roughly 10 feet
8L 86% pt walked roughly another 8-10 feet
pt needed at least 10L to walk back to his room
placed pt on 10L at rest and gradully decreased to 3L keeping his sats greater than 88% as ordered.
[2024-03-09 15:00] VITALS: BP 96/65
--- NOTE | 2024-03-09 16:14 | CM ---
CM reviewed chart, PT/OT consulted, will watch for recommendations. Per Respiratory, patient required at least 10L to walk back to room. CM will continue to follow for all discharge planning needs.
Plan; watch for rehab recommendations, will require insurance authorization
[2024-03-09] MEDS: PROSCAR 5 MG PO (20:31)
[2024-03-09] MEDS: LIPITOR 10 MG PO (20:31)
[2024-03-09 23:51] VITALS: BP 120/70
[2024-03-10] MEDS: MAXIPIME 1000 MG IV ×3 (00:05→17:09)
[2024-03-10] MEDS: STERILE WATER FOR INJECTION 10 ML IV ×3 (00:05→17:09)
[2024-03-10 05:53] VITALS: BMI 26.1
[2024-03-10 07:00] VITALS: BP 120/80
[2024-03-10 08:03] LABS: Hematocrit 35.8 % (39.0-52.0); Hemoglobin 11.7 g/dL (13.0-18.0); Mean Corp Hgb Conc. 32.7 g/dL (33.0-37.0); Mean Corpuscular Hgb 31.2 pg (27.0-31.0); Mean Corpuscular Volume 95.5 fL (80.0-94.0); Mean Platelet Volume 9.9 fL (7.4-10.4); Platelet Count 105 10^3/uL (130-400); Red Blood Cell Count 3.75 10^6/uL (4.70-6.10); Red Cell Dist. Width 16.5 % (11.5-14.5); White Blood Cell Count 7.9 10^3/uL (4.8-10.8)
[2024-03-10 08:20] LABS: NT-proBNP 1320 pg/ml
[2024-03-10 08:42] LABS: Blood Urea Nitrogen 39 mg/dl (9-20); Calcium 8.7 mg/dl (8.4-10.2); Carbon Dioxide 28 mmol/L (22-30); Chloride 102 mmol/L (98-107); Estimated Creatinine Clearance 53 ml/min; Glucose 92 mg/dl (70-99); Magnesium 2.1 mg/dl (1.6-2.3); Potassium 4.1 mmol/L (3.5-5.1); Sodium 134 mmol/L (135-145); eGFR > 60.00
[2024-03-10] MEDS: MUCINEX 600 MG PO ×2 (08:43→20:21)
[2024-03-10] MEDS: TOPROL XL 12.5 MG PO (08:43)
[2024-03-10] MEDS: LASIX 20 MG PO (08:43)
[2024-03-10] MEDS: ELIQUIS 5 MG PO ×2 (08:44→20:21)
[2024-03-10] MEDS: TIKOSYN 250 MCG PO ×2 (08:44→20:21)
[2024-03-10] MEDS: PROTONIX 40 MG PO (08:44)
[2024-03-10] MEDS: DELTASONE 30 MG PO (08:44)
[2024-03-10] MEDS: VIBRAMYCIN 100 MG PO ×2 (08:45→20:22)
[2024-03-10] MEDS: DAPSONE 50 MG PO (08:45)
[2024-03-10 09:21] VITALS: PULSE 102; O2SAT 85; O2SAT 92
--- NOTE | 2024-03-10 11:57 | W.PN.PUL3 ---
Today's Communication / Plan
-
Continue antibiotics until tomorrow.
Continue oxygen supplementation maintain pulse ox above 88%
Prednisone 30 mg-further taper in the outpatient setting
Dapsone for PJP prophylaxis
Physical therapy/Occupational Therapy
Hopefully can discharge in the next 24 hours.
Assessment
-
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
after being treated for CHF preserved EF, amiodarone induced pulmonary toxicity followed locally and at [facility]-readmitted with persistent hypoxemia and pulmonary consulted for hypoxemia 02/18/2024-placed on high-dose steroids, treated for congestive
heart failure, and infection-discharged and readmitted to [facility] for couple days with subsequent discharge after additional antibiotics and now returns with progressive hypoxemia and shortness of breath-pulmonary consulted again for hypoxemia
03/07/2024.
Impression:
Acute on chronic hypoxic respiratory failure - multifactorial with large component of physical deconditioning with poor pulmonary reserve from Hx of ILD, recent pneumonitis and pneumonia
Pneumonia-with recent hospitalization at [place] from 02/17 - 03/04/2024
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
Hx of metastatic urothelial carcinoma with mets to [facility]AIL[facility]
Elevated troponin � peaked at 0.066 on 03/06/2024
Chronic CHF-preserved EF
PAF
JUAN � resolved
Anemia
Hyperglycemia � resolved
DNR/DNI last admission, now full code
Conditions present prior to admission:
Recent dosed on hospitalization 02/18/2024-interstitial lung disease flare, infection, CHF-discharged and admitted [facility] for couple days-additional antibiotics
Urothelial cell carcinoma with metastatic disease to the lungs status post bronchoscopy-[facility] October 2023 Manjitrefugioo on immunotherapy (not currently on Keytruda given recent pneumonitis)
CHF preserved EF.
Diastolic CHF.
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
PAF/ablation x 3/failed sotalol/cardioversion.
Chronic kidney disease.
Nephrolithiasis.
BPH.
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 Left ureterectomy. Hernia repair. Port placement.
Plan
Respiratory status had improved significantly since his previous [place] hospital discharge, but he still is having issues with hypoxia during ambulation
Acute decompensation likely related to infection-recent hospitalization and thus nosocomial/hospital-acquired infections need to be covered; physical deconditioning also likely large contributor here
Supplemental oxygen as needed-currently on 2-3 L --> check ambulatory pulse oximetry prior to discharge (checked on 03/09/2024 and he was desaturating to 86% while on 8-10L/min midflow)
Patient does have a concentrator at home that provides up to 10 L.
Aspiration precautions.
Nebulizers as needed - not currently bronchospastic
Prednisone 30 mg daily with slow outpatient wean-will follow-up locally with Dr. Faustin. No further taper while in the hospital.
Depending on clinical progression may need to consider other immunosuppressants such as Imuran or CellCept in the outpx setting. Complicating factor is his underlying urothelial cancer.
Dapsone 50 mg daily. PJP prophylaxis
Mucinex continues
Afebrile/without leukocytosis/normal procalcitonin.
Unable to produce sputum.
MRSA screening negative
Influenza negative
Sputum culture if able to produce
Blood cultures from 03/06/2024 show NGTD
Cefepime and doxycycline (started 03/06) s/p IV vancomycin (03/06 - 03/08/2024)-discussed with Dr. Cortes will complete antibiotics tomorrow 03/11/2024. Unclear if this was acute infection. Patient spent 10 days at [facility] and
completed full course of antibiotics prior to this admission
DVT prophylaxis-on Eliquis.
GI prophylaxis-on pantoprazole
Nutrition
Early mobilization.
Unfortunately very slow recovery: Unclear if there is going to be significant improvement from here.
Will need repeat CT chest in the next 6 to 8 weeks in the outpatient setting.
He is prognosis guarded.
Patient went to Dr. Holly Dixon for second opinion at [facility]-he states that they don't have anything else to offer except immunosuppression/steroids and he would like to stay local and not go back down to [place]
Outpatient pulmonary follow-up with Dr. Faustin
Dr. Samuel updated patient and in detail 03/10/2024: At rest he feels okay. Advised to preoxygenation before activity once he is discharged home.
Hopefully can discharge 03/11/2024. Discussed with Dr. Cortes. Patient has a concentrator at home that goes up to 10 L.
Disposition efforts: consult PT/OT --> he would benefit from rehab prior to going back home given his exquisite generalized weakness with hypoxia with exertion
Pulmonary service will continue to follow along while he remains hospitalized.
Diagnostic data:
Chest x-ray 02/16/2021-NAD
Chest x-ray 09/08/2023-moderate CHF
Chest x-ray 09/19/2023-stable interstitial and airspace opacifications
Chest x-ray 12/08/2023-bilateral interstitial opacifications suspecting chronic interstitial lung disease
Chest x-ray 01/18/2024-left lower lobe pneumonia superimposed on chronic interstitial infiltrates
Chest x-ray 02/09-bilateral pulmonary parenchymal opacifications with some improvement
Chest x-ray 02/17/2024-bilateral parenchymal opacifications slightly progressed in the left lung and in the right lower lung possibly minimal superimposed alveolar component, at least a component of findings may be chronic
Chest x-ray 03/06/2024-findings suspicious for mild left lung base pneumonia
CT chest 05/03/2021-no significant acute abnormalities, 2 adjacent solid nodules measuring 7 mm not changed since [address] abdomen/-small filling defects within the left renal pelvis suspicious for upper urinary tract malignancy, lung bases subsegmental atelectasis
CT abdomen and pelvis 02/06/2023-nonobstructing right renal stone, lung bases are clear
CT abdomen and pelvis 08/06/2023-lung bases minimal bilateral pleural effusions, interstitial edema in the lung bases, post left nephrectomy, nonobstructing right nephrolithiasis
CT chest 09/12/2023-widespread prominence of pulmonary interstitium and new widespread areas of groundglass opacifications, mild mediastinal lymphadenopathy
CT chest 11/27/2023-oblong left upper lobe mass measuring 3.[address] chest 01/25/2024-scattered foci of acute pneumonitis superimposed on chronic changes of interstitial lung disease,
PET scan 11/14/2023-activity seen in presumed urinary bladder/prostate defect from prior surgery likely physiologic, mild FDG uptake lesion upper lobe of the lung, minimal FDG uptake lower lobes of the lungs likely inflammatory
Echocardiogram 01/21/24-EF 59%, stage III diastolic dysfunction, well-seated number 23 mm aortic valve, PA systolic 35-40
Total time spent today was 39 minutes for this encounter. Time includes reviewing laboratory test/imaging results, reviewing pertinent medical records, obtaining and reviewing medical history, performing an appropriate exam, ordering medications,
tests and procedures. Time also includes documentation of this encounter, coordinating patient care and communicating with other healthcare professionals. Total time does not include separately billed tests performed on this date of service.
Subjective Data
-
Date of Service:
Date of Service: March 10, 2024
Chief Complaint: Pulmonary Follow Up
Subjective:
No new complaints
Continues to report exertional dyspnea
No significant hemoptysis or phlegm production.
Review of Systems
General: Fever (n)
Cardiopulmonary: Dyspnea and Dyspnea on Exertion
GI: Abdominal Pain (n)
Objective Data
Data Reviewed
Vital Signs / I&O / Oxygen:
Vital Signs
Temp Pulse Resp BP Pulse Ox
98.1 F 83 20 120/80 98
03/10/24 07:00 03/10/24 08:43 03/10/24 07:00 03/10/24 08:43 03/10/24 07:00
Intake and Output
03/09/24 03/10/24 03/11/24
06:59 06:59 06:59
Intake Total 480 / 480 1620 / 1620
Output Total 500 / 500 2375 / 2375
Balance -20 / -20 -755 / -755
SaO2 98
Nasal Cannula flow liters per 8
minute
Physical Exam
General: Respiratory Distress (negative), Comfortable, Chills (negative), Sweats (negative) and Good Appetite
HEENT: Normocephalic and Anicteric
Cardiovascular: S1-S2, Murmur (DARIN heard across precordium) and Peripheral Edema (Trace lower extremity edema at the ankles bilaterally)
Respiratory: Wheeze (negative), Crackles (Bilateral (L >R)), Rhonchi (negative) and Non-Labored Respirations
GI: Soft, Non Distended, Non Tender and Normal Bowel Sounds
Neurology: AO x 3 and Tremors (negative)
Skin: Warm, Dry, Cyanosis (negative) and Jaundice (negative)
Labs/Micro/Reports
Lab Data
03/10/24 07:22
03/10/24 07:22
Microbiology
03/06/24 17:57 Blood/Venous Blood Culture - Preliminary
No Growth in 72 hours- Final report to follow
03/06/24 17:57 Blood/Venous Blood Culture - Preliminary
No Growth in 72 hours- Final report to follow
03/07/24 14:40 Nose Nasal Screen MRSA (PCR) - Final
MRSA not detected - performed by PCR methodology.
--- NOTE | 2024-03-10 12:04 | W.PN.HOSP.TC ---
Today's Communication/Plan
-
continue Cefepime/Doxy and follow up further Pulm recs
Assessment / Plan
Assessment / Plan
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
Pneumonia.
CXR:
IMPRESSION:
Findings suspicious for mild, though increased airspace opacity in the lateral left lung base, suspicious for pneumonia.
Pneumonia
Acute on chronic hypoxic respiratory failure
Recent hospitalization s/p Cefepime/Doxy course
ILD on steroid course
-At 02/16-02/25, then at [facility] 02/25-03/04, discharged from [facility] 3 days ago before representing to [facility]
-Covid/flu neg. blood culture negative, patient was on 4L home O2, then requiring 6 in the ER
-Continue broad spectrum abx: Cefepime, doxycycline D3 for atypical coverage. MRSA PCR negative, discontinued vancomycin.
-Continue [employer] prednisone taper, no need for IV steroids
-Now on 2 L of oxygen, better than his baseline of 3-4 L
-Patient feels well at rest, but became hypoxic requiring 10 L with activity
-His ILD is a terminal diagnosis, but he and his family wish to remain full code
Transient hypotension
-Resolved
Nonischemic myocardial injury troponin Elevation in setting of pneumonia
-No chest pain, continue to trend
Acute on chronic kidney Disease, CKD III
-Status post gentle IV fluids overnight
-Resolved
HFpEF
Hx Aortic Valve Replacement 2007
-TTE 01/21/24 shows EF 59%; Well seated #23 mm stentless freestyle aortic valve with peak/mean gradients
across the aortic valve at 23/11 mmHg. No aortic regurgitation is seen.
-Resume Lasix 03/09
Bladder cancer s/p L robotic nephroureterectomy 09/20/2022, multiple TURBTs with new bladder tumors s/p resection
Metastatic Disease to Lung - currently treatment on hold 04/20 AE and multiple hospitalizations
-Continue Dapsone
Hx Atrial Fibrillation
-Hx ablation, cardioversion, s/p Tikosyn initiation 01/2024
-Continue Eliquis
BPH
-[employer] Finasteride
HLD
-[employer] Simvastatin
DVT prophylaxis�Eliquis
Full code
Total time spent to see the patient on the floor, examine the patient, review data and lab results, discuss treatment plan with patient, nursing staff around 41 minutes.
Physical Exam
General: No acute distress
HEENT: Normocephalic, Atraumatic, EOMI, MMM
Respiratory: Bibasilar crackles
Cardiac: Normal S1/S2, Regular Rate and Rhythm
GI: Soft, Nontender, Nondistended, Normal Bowel Sounds
Extremities: No Clubbing, Cyanosis
Neuro: Nonfocal/Grossly Intact
Psych: Calm, Cooperative
Derm: No Visible lesions
Anticipated Discharge: 24 - 48 hours
Subjective/Interval History
-
Date of Service: March 10, 2024
he is overall feeling better
SOB this morning when ambulating with O2 at 6L, needed 8
Objective Data
-
Labs:
Laboratory Results
03/10/24
07:22
WBC 7.9
Hgb 11.7 L
Hct 35.8 L
Plt Count 105 L
Sodium 134 L
Potassium 4.1
Chloride 102
Carbon Dioxide 28
BUN 39 H
Creatinine 1.1
Glucose 92
Calcium 8.7
Vital Signs:
Vital Signs
Temp Pulse Resp BP Pulse Ox
98.1 F 83 20 120/80 98
03/10/24 07:00 03/10/24 08:43 03/10/24 07:00 03/10/24 08:43 03/10/24 07:00
I&O
03/09/24 03/10/24 03/11/24
06:59 06:59 06:59
Intake Total 480 / 480 1620 / 1620
Output Total 500 / 500 2375 / 2375
Balance -20 / -20 -755 / -755
Review of Systems
-
History Source: Patient
All other systems: Reviewed and negative
Physical Exam
-
General: Well Developed, No Apparent Distress and Comfortable
HEENT: Normocephalic, Atraumatic, Moist Mucous Membranes, Anicteric and Oxygen (3L nasal cannula)
Respiratory: Clear to Auscultation
Cardiac: Regular Rhythm and S1/S2; Negative Calf Tenderness
GI: Soft, Nontender and Nondistended
Genito-urinary: No Costovertebral Tender
Musculoskeletal: No Clubbing and No Cyanosis
Skin: Warm and Dry
Neuro: Awake, Alert and Oriented
Psych: Calm
Data Reviewed
-
Diagnostic Radiology: Report Reviewed by me
Labs: Labs Reviewed by me
[2024-03-10 15:00] VITALS: BP 105/69
[2024-03-10] MEDS: PROSCAR 5 MG PO (21:35)
[2024-03-10] MEDS: LIPITOR 10 MG PO (21:35)
[2024-03-10 23:35] VITALS: BP 115/71
[2024-03-11] MEDS: STERILE WATER FOR INJECTION 10 ML IV ×2 (00:35→08:05)
[2024-03-11] MEDS: MAXIPIME 1000 MG IV ×2 (00:35→08:05)
[2024-03-11 07:42] VITALS: BP 120/72
[2024-03-11] MEDS: TIKOSYN 250 MCG PO ×2 (08:02→20:03)
[2024-03-11] MEDS: PROTONIX 40 MG PO (08:02)
[2024-03-11] MEDS: DELTASONE 30 MG PO (08:02)
[2024-03-11] MEDS: TOPROL XL 12.5 MG PO (08:03)
[2024-03-11] MEDS: DAPSONE 50 MG PO (08:03)
[2024-03-11] MEDS: ELIQUIS 5 MG PO ×2 (08:04→20:03)
[2024-03-11] MEDS: LASIX 20 MG PO (08:05)
[2024-03-11] MEDS: MUCINEX 600 MG PO ×2 (08:05→20:03)
[2024-03-11] MEDS: VIBRAMYCIN 100 MG PO (08:05)
--- NOTE | 2024-03-11 11:06 | W.PN.PUL3 ---
Today's Communication / Plan
-
Prednisone 30 mg
Oxygen supplementation to maintain pulse ox above 88%
Energy conservation
PJP prophylaxis
Outpatient pulmonary follow-up with Dr. Faustin in the next 2 to 3 weeks
Okay for discharge today
Sign off
Assessment
-
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
after being treated for CHF preserved EF, amiodarone induced pulmonary toxicity followed locally and at [facility]-readmitted with persistent hypoxemia and pulmonary consulted for hypoxemia 02/18/2024-placed on high-dose steroids, treated for congestive
heart failure, and infection-discharged and readmitted to [facility] for couple days with subsequent discharge after additional antibiotics and now returns with progressive hypoxemia and shortness of breath-pulmonary consulted again for hypoxemia
03/07/2024.
Impression:
Acute on chronic hypoxic respiratory failure - multifactorial with large component of physical deconditioning with poor pulmonary reserve from Hx of ILD, recent pneumonitis and pneumonia
Pneumonia-with recent hospitalization at [place] from 02/17 - 03/04/2024
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
Hx of metastatic urothelial carcinoma with mets to [facility]AIL[facility]
Elevated troponin � peaked at 0.066 on 03/06/2024
Chronic CHF-preserved EF
PAF
JUAN � resolved
Anemia
Hyperglycemia � resolved
DNR/DNI last admission, now full code
Conditions present prior to admission:
Recent dosed on hospitalization 02/18/2024-interstitial lung disease flare, infection, CHF-discharged and admitted [facility] for couple days-additional antibiotics
Urothelial cell carcinoma with metastatic disease to the lungs status post bronchoscopy-[facility] October 2023 Lanrefugioo on immunotherapy (not currently on Keytruda given recent pneumonitis)
CHF preserved EF.
Diastolic CHF.
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
PAF/ablation x 3/failed sotalol/cardioversion.
Chronic kidney disease.
Nephrolithiasis.
BPH.
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 Left ureterectomy. Hernia repair. Port placement.
Plan
Patient states that he feels much better.
Respiratory status improved since admission.
Acute decompensation likely related to infection-recent hospitalization and thus nosocomial/hospital-acquired infections need to be covered; physical deconditioning also likely large contributor here
Maintain oxygen supplementation to keep pulse ox above 88%. He has a home concentrator that goes up to 10 L.
I advised him to preoxygenated before ambulation.
-
Nebulizers as needed - not currently bronchospastic
Prednisone 30 mg daily with slow outpatient wean-will follow-up locally with Dr. Faustin. No further taper while in the hospital.
Depending on clinical progression may need to consider other immunosuppressants such as Imuran or CellCept in the outpx setting. Complicating factor is his underlying urothelial cancer.
Dapsone 50 mg daily. PJP prophylaxis
Mucinex continues
Afebrile/without leukocytosis/normal procalcitonin.
Unable to produce sputum.
MRSA screening negative
Influenza negative
Sputum culture if able to produce
Blood cultures from 03/06/2024 show NGTD
Cefepime and doxycycline (started 03/06) s/p IV vancomycin (03/06 - 03/08/2024)-discussed with Dr. Cortes will complete antibiotics today 03/11/2024. Unclear if this was acute infection. Patient spent 10 days at [facility] and
completed full course of antibiotics prior to this admission
DVT prophylaxis-on Eliquis.
GI prophylaxis-on pantoprazole
Nutrition
Early mobilization.
Unfortunately very slow recovery: Unclear if there is going to be significant improvement from here.
Will need repeat CT chest in the next 6 to 8 weeks in the outpatient setting.
He is prognosis guarded.
Patient went to Dr. Holly Dixon for second opinion at [facility]-he states that they don't have anything else to offer except immunosuppression/steroids and he would like to stay local and not go back down to [place]
Outpatient pulmonary follow-up with Dr. Faustin
Dr. Samuel updated patient and in detail 03/10/2024 and 03/11/2024 : At rest he feels okay. Advised to preoxygenation before activity once he is discharged home.
Okay to discharge today 03/11/2024. Discussed with Dr. Cortes. Patient has a concentrator at home that goes up to 10 L.
Disposition efforts: consult PT/OT --> he would benefit from rehab prior to going back home given his exquisite generalized weakness with hypoxia with exertion
Pulmonary service will continue to follow along while he remains hospitalized.
Sign off
Diagnostic data:
Chest x-ray 02/16/2021-NAD
Chest x-ray 09/08/2023-moderate CHF
Chest x-ray 09/19/2023-stable interstitial and airspace opacifications
Chest x-ray 12/08/2023-bilateral interstitial opacifications suspecting chronic interstitial lung disease
Chest x-ray 01/18/2024-left lower lobe pneumonia superimposed on chronic interstitial infiltrates
Chest x-ray 02/09-bilateral pulmonary parenchymal opacifications with some improvement
Chest x-ray 02/17/2024-bilateral parenchymal opacifications slightly progressed in the left lung and in the right lower lung possibly minimal superimposed alveolar component, at least a component of findings may be chronic
Chest x-ray 03/06/2024-findings suspicious for mild left lung base pneumonia
CT chest 05/03/2021-no significant acute abnormalities, 2 adjacent solid nodules measuring 7 mm not changed since 2019
CT abdomen-small filling defects within the left renal pelvis suspicious for upper urinary tract malignancy, lung bases subsegmental atelectasis
CT abdomen and pelvis 02/06/2023-nonobstructing right renal stone, lung bases are clear
CT abdomen and pelvis 08/06/2023-lung bases minimal bilateral pleural effusions, interstitial edema in the lung bases, post left nephrectomy, nonobstructing right nephrolithiasis
CT chest 09/12/2023-widespread prominence of pulmonary interstitium and new widespread areas of groundglass opacifications, mild mediastinal lymphadenopathy
CT chest 11/27/2023-oblong left upper lobe mass measuring 3.[address] chest 01/25/2024-scattered foci of acute pneumonitis superimposed on chronic changes of interstitial lung disease,
PET scan 11/14/2023-activity seen in presumed urinary bladder/prostate defect from prior surgery likely physiologic, mild FDG uptake lesion upper lobe of the lung, minimal FDG uptake lower lobes of the lungs likely inflammatory
Echocardiogram 01/21/24-EF 59%, stage III diastolic dysfunction, well-seated number 23 mm aortic valve, PA systolic 35-40
Total time spent today was 38 minutes for this encounter. Time includes reviewing laboratory test/imaging results, reviewing pertinent medical records, obtaining and reviewing medical history, performing an appropriate exam, ordering medications,
tests and procedures. Time also includes documentation of this encounter, coordinating patient care and communicating with other healthcare professionals. Total time does not include separately billed tests performed on this date of service.
Subjective Data
-
Date of Service:
Date of Service: March 11, 2024
Chief Complaint: Pulmonary Follow Up
Subjective:
No new events overnight
Oxygen requirements not worse
Denies hemoptysis or phlegm production.
Shortness of breath at baseline.
Review of Systems
Cardiopulmonary: Dyspnea (n)
GI: Abdominal Pain (n) and Nausea (n)
Neuro: Headache (n)
Objective Data
Data Reviewed
Vital Signs / I&O / Oxygen:
Vital Signs
Temp Pulse Resp BP Pulse Ox
98.7 F 76 19 120/72 95
03/11/24 07:42 03/11/24 08:03 03/11/24 07:42 03/11/24 08:03 03/11/24 07:42
Intake and Output
03/10/24 03/11/24 03/12/24
06:59 06:59 06:59
Intake Total 1620 / 1620 1380 / 1380
Output Total 2375 / 2375 950 / 950
Balance -755 / -755 430 / 430
SaO2 95
Nasal Cannula flow liters per 6
minute
Physical Exam
General: Respiratory Distress (negative), Comfortable, Chills (negative), Sweats (negative) and Good Appetite
HEENT: Normocephalic and Anicteric
Cardiovascular: S1-S2, Murmur (DARIN heard across precordium) and Peripheral Edema (Trace lower extremity edema at the ankles bilaterally)
Respiratory: Wheeze (negative), Crackles (Bilateral (L >R)), Rhonchi (negative) and Non-Labored Respirations
GI: Soft, Non Distended, Non Tender and Normal Bowel Sounds
Neurology: AO x 3 and Tremors (negative)
Skin: Warm, Dry, Cyanosis (negative) and Jaundice (negative)
Labs/Micro/Reports
Lab Data
03/10/24 07:22
03/10/24 07:22
Microbiology
03/06/24 17:57 Blood/Venous Blood Culture - Preliminary
No Growth in 4 days- Final report to follow
03/06/24 17:57 Blood/Venous Blood Culture - Preliminary
No Growth in 4 days- Final report to follow
--- NOTE | 2024-03-11 11:23 | W.PN.HOSP.TC ---
Today's Communication/Plan
-
OK for DC
Assessment / Plan
Assessment / Plan
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
Pneumonia.
CXR:
IMPRESSION:
Findings suspicious for mild, though increased airspace opacity in the lateral left lung base, suspicious for pneumonia.
Pneumonia
Acute on chronic hypoxic respiratory failure
Recent hospitalization s/p Cefepime/Doxy course
ILD on steroid course
-At 02/16-02/25, then at [facility] 02/25-03/04, discharged from [facility] 3 days ago before representing to [facility]
-Covid/flu neg. blood culture negative, patient was on 4L home O2, then requiring 6 in the ER
-now s/p repeat abx course - OK to stop on DC
-Continue CHIEF ENGINEER'S HELPER prednisone taper - continue 30mg until seen by Dr. Faustin
-Patient feels well at rest, but became hypoxic requiring 10 L with activity - has home oxygen concentrator at home that can deliver this
-His ILD is a terminal diagnosis, but he and his family wish to remain full code
Transient hypotension
-Resolved
Nonischemic myocardial injury troponin Elevation in setting of pneumonia
-No chest pain, continue to trend
Acute on chronic kidney Disease, CKD III
-Status post gentle IV fluids overnight
-Resolved
HFpEF
Hx Aortic Valve Replacement 2007
-TTE 01/21/24 shows EF 59%; Well seated #23 mm stentless freestyle aortic valve with peak/mean gradients
across the aortic valve at 23/11 mmHg. No aortic regurgitation is seen.
-Resume Lasix 03/09
Bladder cancer s/p L robotic nephroureterectomy 09/20/2022, multiple TURBTs with new bladder tumors s/p resection
Metastatic Disease to Lung - currently treatment on hold 04/20 AE and multiple hospitalizations
-Continue Dapsone
Hx Atrial Fibrillation
-Hx ablation, cardioversion, s/p Tikosyn initiation 01/2024
-Continue Eliquis
BPH
-CHIEF ENGINEER'S HELPER Finasteride
HLD
-CHIEF ENGINEER'S HELPER Simvastatin
DVT prophylaxis�Eliquis
Full code
Total time spent to see the patient on the floor, examine the patient, review data and lab results, discuss treatment plan with patient, nursing staff around 41 minutes.
Physical Exam
General: No acute distress
HEENT: Normocephalic, Atraumatic, EOMI, MMM
Respiratory: Bibasilar crackles
Cardiac: Normal S1/S2, Regular Rate and Rhythm
GI: Soft, Nontender, Nondistended, Normal Bowel Sounds
Extremities: No Clubbing, Cyanosis
Neuro: Nonfocal/Grossly Intact
Psych: Calm, Cooperative
Derm: No Visible lesions
Anticipated Discharge: Today
Subjective/Interval History
-
Date of Service: March 11, 2024
feeling well and wants to leave the hospital today
Objective Data
-
Vital Signs:
Vital Signs
Temp Pulse Resp BP Pulse Ox
98.7 F 76 19 120/72 95
03/11/24 07:42 03/11/24 08:03 03/11/24 07:42 03/11/24 08:03 03/11/24 07:42
I&O
03/10/24 03/11/24 03/12/24
06:59 06:59 06:59
Intake Total 1620 / 1620 1380 / 1380
Output Total 2375 / 2375 950 / 950
Balance -755 / -755 430 / 430
Review of Systems
-
History Source: Patient
All other systems: Reviewed and negative
Physical Exam
-
General: Well Developed, No Apparent Distress and Comfortable
HEENT: Normocephalic, Atraumatic, Moist Mucous Membranes, Anicteric and Oxygen
Respiratory: Negative Wheezes
Cardiac: Regular Rhythm and S1/S2; Negative Calf Tenderness
GI: Soft, Nontender and Nondistended
Genito-urinary: No Costovertebral Tender
Musculoskeletal: No Clubbing and No Cyanosis
Skin: Warm and Dry
Neuro: Awake, Alert and Oriented
Psych: Calm
Data Reviewed
-
Diagnostic Radiology: Report Reviewed by me
Labs: Labs Reviewed by me
--- NOTE | 2024-03-11 11:32 | W.DS.TRANS ---
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
-
Discharge Instructions:
Discharge Diagnosis/Procedures acute on chronic hypoxic respiratory failure;
pneumonia
Diet 2 Gram Sodium
Activity As tolerated
Additional Activity 10L oxygen with exertion; 6L at rest
Driving Restrictions No driving
Bathing Restrictions None
Other Services VN,PT,OT
Specialty Instructions Weigh Daily
Instructions:
Stand-Alone Forms:
Changes to Home Medications: No
Discharge Medications:
DC Medications w/original date entered in [facility] in [place]
finasteride 5 mg tablet 5 mg PO HS prostate 05/25/10
simvastatin 10 mg tablet 10 mg PO HS High cholesterol 09/04/19
apixaban 5 mg tablet (Eliquis) 5 mg PO BID Blood Clot Prevention/Tx #0 tabs 01/26/24
dofetilide 250 mcg capsule 250 mcg PO Q12 Arrhythmia 30 days #60 caps 01/26/24
furosemide 20 mg tablet 20 mg PO DAILY Heart Failure 30 days #30 tabs 01/26/24
dapsone 25 mg tablet 50 mg PO DAILY Infection 02/17/24
metoprolol succinate 25 mg tablet,extended release 24 hr 12.5 mg PO DAILY Arrhythmia 03/06/24
guaifenesin 600 mg tablet, extended release 12 hr 600 mg PO Q12 #28 tabs 03/11/24
prednisone 10 mg tablet 30 mg (3 x 10 mg) PO DAILY #0 tabs 03/11/24
Home Medication Changes
continue Prednisone 30mg daily (without taper until seen by Dr. Faustin)
Mucinex
Pending Results: No
--- NOTE | 2024-03-11 12:31 | CM ---
Addendum entered by Jenn Goel 03/11/24 16:17:
Patient physician indicated that plans have changed. CM reviewed with patient son, and patient options. Patient asked for information about SNF options. CM reviewed and patient son to call CM office about possible SNF options. Patient to be
seen by therapy for further assessments. CM will continue to follow for discharge planning needs.
Plan; possible SNF pending therapy assessment/ will need [employer] authorization.
Original Note:
Patient seen at bedside with respiratory therapist. CM reviewed IMM and signed form placed on chart. Home O2 in place at home. Patient family to transport home. [facility] to follow, CM updated Liaison. CM will continue to follow for discharge planning
needs.
Plan; home with [facility] to follow
[2024-03-11 12:42] VITALS: PULSE 90; O2SAT 95
--- NOTE | 2024-03-11 14:44 | W.PN.UPDATE ---
Update Note
Progress Note Update
I had a conference call with his son, and patient: After ambulating in the room patient became very short of breath but pulse ox was normal on 8 L.
I explained him that likely he will continue to feel short of breath for some time. It is unclear whether he has underlying pulmonary scarring will improve quick enough or if at all.
He is also very deconditioned.
Would like to stay a few more days until he gets better. Will continue to reassess on a daily basis.
I did discuss need for more support at home. The son is going to look into it. He may not be able to go home if unable to handle the situation.
If there is no improvement palliative care may be an option.
Discussed with Dr. Cortes as well.
Hold off on discharge and will continue to follow.
[2024-03-11 16:00] VITALS: BP 105/66
[2024-03-11] MEDS: LIPITOR 10 MG PO (21:25)
[2024-03-11] MEDS: PROSCAR 5 MG PO (21:25)
[2024-03-11 23:55] VITALS: BP 117/77
[2024-03-12 05:56] VITALS: BMI 25.4
[2024-03-12 07:00] VITALS: BP 109/74
[2024-03-12] MEDS: TOPROL XL 12.5 MG PO (09:03)
[2024-03-12] MEDS: MUCINEX 600 MG PO ×2 (09:03→19:31)
[2024-03-12] MEDS: DAPSONE 50 MG PO (09:03)
[2024-03-12] MEDS: TIKOSYN 250 MCG PO ×2 (09:03→19:32)
[2024-03-12] MEDS: DELTASONE 30 MG PO (09:03)
[2024-03-12] MEDS: ELIQUIS 5 MG PO ×2 (09:04→19:31)
[2024-03-12] MEDS: PROTONIX 40 MG PO (09:04)
[2024-03-12] MEDS: LASIX 20 MG PO (09:04)
--- NOTE | 2024-03-12 11:48 | W.PN.HOSP.TC ---
Today's Communication/Plan
-
see plan
Assessment / Plan
Assessment / Plan
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
Pneumonia.
CXR:
IMPRESSION:
Findings suspicious for mild, though increased airspace opacity in the lateral left lung base, suspicious for pneumonia.
Pneumonia
Acute on chronic hypoxic respiratory failure
Recent hospitalization s/p Cefepime/Doxy course
ILD on steroid course
-At 02/16-02/25, then at [facility] 02/25-03/04, discharged from [facility] 3 days ago before representing to [facility]
-Covid/flu neg. blood culture negative, patient was on 4L home O2, then requiring 6 in the ER. He needs 6 at rest; 8-10 with exertion and recovery
-now s/p repeat abx course
-Continue TALENT DEVELOPMENT DIRECTOR prednisone taper - continue 30mg until seen by Dr. Faustin
-*we are working on dispo at this point given resp status very tenuous with exertion; appreciate Pulmonary and CM
Transient hypotension
-Resolved
Nonischemic myocardial injury troponin Elevation in setting of pneumonia
-No chest pain, continue to trend
Acute on chronic kidney Disease, CKD III
-Status post gentle IV fluids overnight
-Resolved
HFpEF
Hx Aortic Valve Replacement 2007
-TTE 01/21/24 shows EF 59%; Well seated #23 mm stentless freestyle aortic valve with peak/mean gradients
across the aortic valve at 23/11 mmHg. No aortic regurgitation is seen.
-Resume Lasix 03/09
Bladder cancer s/p L robotic nephroureterectomy 09/20/2022, multiple TURBTs with new bladder tumors s/p resection
Metastatic Disease to Lung - currently treatment on hold 04/20 AE and multiple hospitalizations
-Continue Dapsone
Hx Atrial Fibrillation
-Hx ablation, cardioversion, s/p Tikosyn initiation 01/2024
-Continue Eliquis
BPH
-TALENT DEVELOPMENT DIRECTOR Finasteride
HLD
-TALENT DEVELOPMENT DIRECTOR Simvastatin
DVT prophylaxis�Eliquis
Full code
Total time spent to see the patient on the floor, examine the patient, review data and lab results, discuss treatment plan with patient, nursing staff around 41 minutes.
Physical Exam
General: No acute distress
HEENT: Normocephalic, Atraumatic, EOMI, MMM
Respiratory: Bibasilar crackles
Cardiac: Normal S1/S2, Regular Rate and Rhythm
GI: Soft, Nontender, Nondistended, Normal Bowel Sounds
Extremities: No Clubbing, Cyanosis
Neuro: Nonfocal/Grossly Intact
Psych: Calm, Cooperative
Derm: No Visible lesions
Anticipated Discharge: 24 - 48 hours
Subjective/Interval History
-
Date of Service: March 12, 2024
feeling ok at rest on 6-8L (post getting up to brush teeth and shave needed 8L)
Objective Data
-
Vital Signs:
Vital Signs
Temp Pulse Resp BP Pulse Ox
97.4 F 92 21 109/74 94
03/12/24 07:00 03/12/24 07:00 03/12/24 07:00 03/12/24 07:00 03/12/24 08:45
I&O
03/11/24 03/12/24 03/13/24
06:59 06:59 06:59
Intake Total 1380 / 1380 1680 / 1680 480 / 480
Output Total 950 / 950 2450 / 2450
Balance 430 / 430 -770 / -770 480 / 480
Review of Systems
-
History Source: Patient
All other systems: Reviewed and negative
Physical Exam
-
General: Well Developed, No Apparent Distress and Comfortable
HEENT: Normocephalic, Atraumatic, Moist Mucous Membranes, Anicteric and Oxygen
Respiratory: Negative Wheezes
Cardiac: Regular Rhythm and S1/S2; Negative Calf Tenderness
GI: Soft, Nontender and Nondistended
Genito-urinary: No Costovertebral Tender
Musculoskeletal: No Clubbing and No Cyanosis
Skin: Warm and Dry
Neuro: Awake, Alert and Oriented
Psych: Calm
Data Reviewed
-
Diagnostic Radiology: Report Reviewed by me
Labs: Labs Reviewed by me
[2024-03-12 15:00] VITALS: BP 95/59
[2024-03-12] MEDS: LIPITOR 10 MG PO (21:31)
[2024-03-12] MEDS: PROSCAR 5 MG PO (21:31)
[2024-03-12 23:29] VITALS: BP 104/73
[2024-03-13 06:00] VITALS: BMI 25.1
[2024-03-13 07:30] VITALS: BP 102/65
[2024-03-13] MEDS: DELTASONE 30 MG PO (08:40)
[2024-03-13] MEDS: DAPSONE 50 MG PO (08:40)
[2024-03-13] MEDS: ELIQUIS 5 MG PO (08:40)
[2024-03-13] MEDS: MUCINEX 600 MG PO (08:41)
[2024-03-13] MEDS: PROTONIX 40 MG PO (08:41)
[2024-03-13] MEDS: TIKOSYN 250 MCG PO (08:41)
[2024-03-13] MEDS: LASIX 20 MG PO (08:41)
[2024-03-13] MEDS: TOPROL XL 12.5 MG PO (08:41)
--- NOTE | 2024-03-13 10:49 | W.PN.HOSP.TC ---
Today's Communication/Plan
-
plan for discharge today
Assessment / Plan
Assessment / Plan
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
Pneumonia.
CXR:
IMPRESSION:
Findings suspicious for mild, though increased airspace opacity in the lateral left lung base, suspicious for pneumonia.
Pneumonia
Acute on chronic hypoxic respiratory failure
Recent hospitalization s/p Cefepime/Doxy course
ILD on steroid course
-At 02/16-02/25, then at [facility] 02/25-03/04, discharged from [facility] 3 days ago before representing to [facility]
-Covid/flu neg. blood culture negative, patient was on 4L home O2, then requiring 6 in the ER. He needs 6 at rest; 8-10 with exertion and recovery
-now s/p repeat abx course
-Continue BENZENE WASHER OPERATOR prednisone taper - continue 30mg until seen by Dr. Faustin
-discussed plan with patient and son again today who now feel comfortable with patient going home with VN. 6L at rest and 8-10 with exertion
Transient hypotension
-Resolved
Nonischemic myocardial injury troponin Elevation in setting of pneumonia
-No chest pain, continue to trend
Acute on chronic kidney Disease, CKD III
-Status post gentle IV fluids overnight
-Resolved
HFpEF
Hx Aortic Valve Replacement 2007
-TTE 01/21/24 shows EF 59%; Well seated #23 mm stentless freestyle aortic valve with peak/mean gradients
across the aortic valve at 23/11 mmHg. No aortic regurgitation is seen.
-Resume Lasix 03/09
Bladder cancer s/p L robotic nephroureterectomy 09/20/2022, multiple TURBTs with new bladder tumors s/p resection
Metastatic Disease to Lung - currently treatment on hold 04/20 AE and multiple hospitalizations
-Continue Dapsone
Hx Atrial Fibrillation
-Hx ablation, cardioversion, s/p Tikosyn initiation 01/2024
-Continue Eliquis
BPH
-BENZENE WASHER OPERATOR Finasteride
HLD
-BENZENE WASHER OPERATOR Simvastatin
DVT prophylaxis�Eliquis
Full code
Total time spent to see the patient on the floor, examine the patient, review data and lab results, discuss treatment plan with patient, nursing staff around 41 minutes.
Anticipated Discharge: Today
Subjective/Interval History
-
Date of Service: March 13, 2024
feels ready to go home today
Objective Data
-
Vital Signs:
Vital Signs
Temp Pulse Resp BP Pulse Ox
98.3 F 89 18 102/65 95
03/13/24 07:30 03/13/24 07:30 03/13/24 07:30 03/13/24 07:30 03/13/24 07:30
I&O
03/12/24 03/13/24 03/14/24
06:59 06:59 06:59
Intake Total 1680 / 1680 960 / 960
Output Total 2450 / 2450 1550 / 1550
Balance -770 / -770 -590 / -590
Review of Systems
-
History Source: Patient
All other systems: Reviewed and negative
Physical Exam
-
General: Well Developed, No Apparent Distress and Comfortable
HEENT: Normocephalic, Atraumatic, Moist Mucous Membranes, Anicteric and Oxygen
Respiratory: Negative Wheezes
Cardiac: Regular Rhythm and S1/S2; Negative Calf Tenderness
GI: Soft, Nontender and Nondistended
Genito-urinary: No Costovertebral Tender
Musculoskeletal: No Clubbing and No Cyanosis
Skin: Warm and Dry
Neuro: Awake, Alert and Oriented
Psych: Calm
Data Reviewed
-
Diagnostic Radiology: Report Reviewed by me
Labs: Labs Reviewed by me
--- NOTE | 2024-03-13 11:02 | W.DS.TRANS ---
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
-
Discharge Instructions:
Discharge Diagnosis/Procedures acute on chronic hypoxic respiratory failure;
possible pneumonia
Diet 2 Gram Sodium
Activity As tolerated
Additional Activity 10L oxygen with exertion; 6L at rest
Driving Restrictions No driving
Bathing Restrictions None
Other Services VN,PT,OT
Specialty Instructions Weigh Daily
Instructions:
Stand-Alone Forms:
Changes to Home Medications: Yes
Discharge Medications:
DC Medications w/original date entered in [facility]
finasteride 5 mg tablet 5 mg PO HS prostate 05/25/10
simvastatin 10 mg tablet 10 mg PO HS High cholesterol 09/04/19
apixaban 5 mg tablet (Eliquis) 5 mg PO BID Blood Clot Prevention/Tx #0 tabs 01/26/24
dofetilide 250 mcg capsule 250 mcg PO Q12 Arrhythmia 30 days #60 caps 01/26/24
furosemide 20 mg tablet 20 mg PO DAILY Heart Failure 30 days #30 tabs 01/26/24
dapsone 25 mg tablet 50 mg PO DAILY Infection 02/17/24
metoprolol succinate 25 mg tablet,extended release 24 hr 12.5 mg PO DAILY Arrhythmia 03/06/24
guaifenesin 600 mg tablet, extended release 12 hr 600 mg PO Q12 #28 tabs 03/11/24
famotidine 20 mg tablet (Pepcid) 20 mg PO HS #30 tabs 03/13/24
prednisone 10 mg tablet 30 mg (3 x 10 mg) PO DAILY #90 tabs 03/13/24
Home Medication Changes
continue Prednisone 30mg daily until seen by Dr. Faustin
Pepcid is prescribed to help protect the stomach while on prednisone and Eliquis
Pending Results: No
--- NOTE | 2024-03-13 11:40 | CM ---
CM reviewed chart, received call from patient, inquiring if he can discharge today, home with VN service. Patient confirms he will have transportation home and son will cecil home O2. CM received call from patients daughter in law, Bettina-
[phone], inquiring if patient can discharge with VN, home PT, and respiratory therapy. CM will inquire if VN services have respiratory therapist. Per [facility]-do not have specific respiratory therapist, nurses will work with patient to ensure
patient is doing incentive spirometer, flutter devices, etc. Per [facility], Mar[facility], Sweta, do not have respiratory services. Patient seen bedside with nurse, discussed plan for discharge home with VN, son will provide transportation home around
12:30 p.m. IMM verbally reviewed, provided with copy, placed in chart. Update to patients son, VN able to admit patient tomorrow. CM will continue to follow for all discharge planning needs.
Plan; home with VN
VN
[2024-03-13 13:04] VITALS: BP 112/71
--- NOTE | 2024-03-13 13:53 | W.DCSUMMARY ---
Discharge Summary
Discharge Data
Date of Admission: 03/06/24
Date of Discharge: 03/13/24
-
Pending Results: No
Hospital Course
Discharging Physician : Dr. Joleen Cortes
Disposition : Home with Home Health
Primary care physician : Dr. Brant Kruse
Principal Discharge diagnosis : Acute on Chronic Hypoxic Respiratory Failure, Interstitial Lung Disease, possible pneumonia
Hospital Course :
Mr. 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
breath. Patient was recently hospitalized here 02/16-02/25 for worsening shortness of breath. It was noted that he had disease progression on CT, he was seen by palliative care. Efrain received steroids and was then seen at [facility] where he was
admitted and received Cefepime and Doxycycline, and continued on steroids. Patient was feeling OK post [facility] discharge until had acute worsening shortness of breath with exertion.
Trial vitals with SpO2 89% on home 4L. Labs with WBC 10.6, Cr 1.6. CXR with findings suspicious for mild pneumonia. He was admitted to medicine with Pulmonary consulting. He received 5 days of antibiotics in house and maintained on his OFFICE RECEPTIONIST
Prednisone. His oxygen needs remain at 6L at rest and 8-10L with exertion. This is likely progression of his chronic lung disease. He will follow up closely with Pulmonary as outpatient and continue Prednisone 30mg PO QD until further directed.
He worked with PT and HH recommended. He has an oxygen concentrator at home that can go up to 10L. Patient given instructions that he needs to increase oxygen prior to any exertion.
He will follow up closely with Dr. Faustin
Time spent on discharge was 40 minutes.
Important imaging findings :
Procedure findings :
Discharge Plan
-
Patient Disposition: Home with Home Care
Discharge Diagnosis/Procedures: acute on chronic hypoxic respiratory failure; possible pneumonia
Diet: 2 Gram Sodium
Activity: As tolerated
Additional Activity: 10L oxygen with exertion; 6L at rest
Driving Restrictions: No driving
Bathing Restrictions: None
Other Services: VN, PT and OT
Specialty Instructions: Weigh Daily- Call MD for wt gain/loss 3 lbs overnight/5 lbs in 1 week
Referrals:
Mamadou Faustin MD [Active] - in two to three weeks
Brant Kruse MD [Family Provider] - in less than 1 week
Additional Discharge Medication Instructions: continue Prednisone 30mg daily until seen by Dr. Faustin
Pepcid is prescribed to help protect the stomach while on prednisone and Eliquis
Prescriptions:
New
guaifenesin 600 mg Tablet Extended Release 12hr
600 mg PO Q12 Qty: 28 0RF
prednisone 10 mg tablet
30 mg PO DAILY Qty: 90 0RF
famotidine [Pepcid] 20 mg tablet
20 mg PO HS Qty: 30 0RF
Continued
finasteride 5 MG tablet
5 mg PO HS
simvastatin 10 MG tablet
10 mg PO HS
dofetilide 250 mcg Capsule
250 mcg PO Q12 30 Days Qty: 60 0RF
furosemide 20 mg Tablet
20 mg PO DAILY 30 Days Qty: 30 0RF
Eliquis 5 mg Tablet
5 mg PO BID Qty: 0 0RF
dapsone 25 mg Tablet
50 mg PO DAILY
metoprolol succinate 25 mg tablet extended release 24 hr
12.5 mg PO DAILY
Discontinued
prednisone 10 mg tablet
40 mg PO DAILY
Rx Instructions:
60 mg X 4 days,50 mg X 4 days,40 mg X 4 days, 30 mg X 4 days, 20 mg daily until seen by pulmonary.
Discharge Orders:
Discharge Patient (As Directed); Ordered 03/13/24
Ordered By: Joleen Cortes
Discharge Date and Time
Discharge Date/Time: 03/13/24 13:14
Print Language: ALBANIAN
== END 2024-03-13 13:14 | disposition home health service (06) | DRG 196 ==
LOC: 4 WEST ACU 19:09
PROVIDERS: Family Medicine; Internal Medicine Critical Care Medicine; ADMITTING PHYSICIAN Student in an Organized Health Care Education/Training Program; CONSULT PHYSICIAN Internal Medicine Critical Care Medicine; EMERGENCY PHYSICIAN Emergency Medicine; FAMILY PHYSICIAN Internal Medicine
DX: J84.9 Interstitial pulmonary disease, unspecified (principal); J96.21 Acute and chronic respiratory failure with hypoxia; C78.00 Secondary malignant neoplasm of unspecified lung; I50.32 Chronic diastolic (congestive) heart failure; J44.0 Chronic obstructive pulmonary disease with (acute) lower respiratory infection; N17.9 Acute kidney failure, unspecified; I5A Non-ischemic myocardial injury (non-traumatic); I48.0 Paroxysmal atrial fibrillation; E78.00 Pure hypercholesterolemia, unspecified; D64.9 Anemia, unspecified; R73.9 Hyperglycemia, unspecified; I95.9 Hypotension, unspecified; C67.9 Malignant neoplasm of bladder, unspecified; N18.30 Chronic kidney disease, stage 3 unspecified; N40.0 Benign prostatic hyperplasia without lower urinary tract symptoms; Z66 Do not resuscitate; Z99.81 Dependence on supplemental oxygen; Z87.442 Personal history of urinary calculi; Z79.01 Long term (current) use of anticoagulants; Z95.3 Presence of xenogenic heart valve; Z11.52 Encounter for screening for COVID-19; Z87.891 Personal history of nicotine dependence
CPT/HCPCS: 71045; 80048; 80053; 80202; 83735; 83880; 84100; 84145; 84484; 85025; 85027; 86140; 87040; 87502; 87641; 87811; 93005; 96374; 96375; 97163; 97166; 97530; 99285

== ENCOUNTER 2024-03-17 08:28 | Inpatient (IN) | payer OTHER, SELFPAY ==
[2024-03-14] VITALS (32 sets, daily range): BP systolic 82–114; BP diastolic 53–80; BMI 25.4; BMI 25.5
[2024-03-14 03:42] LABS: % Basophils 0.3 % (0-2); % Eosinophils 1.1 % (0-6); % Immature Granulocytes 1.1 % (0-0.5); % Lymphocytes 4.3 % (20.5-51.1); % Monocytes 4.8 % (1.7-9.3); % Neutrophils 88.4 % (42.2-75.2); Absolute Eosinophils 0.1 10^3/uL (0-0.7); Absolute Immature Granulocytes 0.1 10^3/uL (0-0.05); Absolute Lymphocytes 0.4 10^3/uL (1.2-3.4); Absolute Monocytes 0.5 10^3/uL (0.1-0.6); Absolute Neutrophils 8.9 10^3/uL (1.4-6.5); Hemoglobin 12.9 g/dL (13.0-18.0); Mean Corp Hgb Conc. 33.1 g/dL (33.0-37.0); Mean Corpuscular Hgb 31.8 pg (27.0-31.0); Mean Corpuscular Volume 96.1 fL (80.0-94.0); Nucleated Red Blood Cells % 0.2 % (-); Platelet Count 123 10^3/uL (130-400); Red Blood Cell Count 4.06 10^6/uL (4.70-6.10); Red Cell Dist. Width 16.7 % (11.5-14.5); White Blood Cell Count 10.1 10^3/uL (4.8-10.8)
[2024-03-14 04:01] LABS: ALT (SGPT) 37 U/L (0-50); AST (SGOT) 31 U/L (17-59); Alkaline Phosphatase 67 U/L (38-126); Blood Urea Nitrogen 54 mg/dl (9-20); Calcium 9.2 mg/dl (8.4-10.2); Carbon Dioxide 23 mmol/L (22-30); Chloride 102 mmol/L (98-107); Estimated Creatinine Clearance 42 ml/min; Glucose 161 mg/dl (70-99); Potassium 4.4 mmol/L (3.5-5.1); Sodium 138 mmol/L (135-145); Total Bilirubin 2.2 mg/dl (0.2-1.3); Total Protein 6.5 g/dl (6.3-8.2); eGFR 48.95
--- NOTE | 2024-03-14 04:30 | EDRN ---
Patient asked for me to put a non-rebreather on him so he could sleep, states his 02 sats drop when he sleeps and they will do a mask
--- NOTE | 2024-03-14 05:45 | EDRN ---
Assisted patient with urinal to urinate, asking when doctor will be in, informed him that they are working the hardest to get to see him, patient resting at this time, patient tolerating water without vomiting, call alexandre in reach.
[2024-03-14] MEDS: NSS 500 IV ×2 (06:54→09:49)
--- NOTE | 2024-03-14 07:04 | EDRN ---
Patient's blood pressure is trending down, informed Dr. Arnold and fluids ordered and hung on patient.
--- NOTE | 2024-03-14 07:35 | ED.GENMED ---
History of Present Illness
General
Chief Complaint: Abdominal Symptoms
Source: patient
Exam Limitations: none
Time Seen by Provider: 03/14/24 07:08
Nursing documentation reviewed up to this point in time: agreed with
History of Present Illness
History of Present Illness:
Patient is a 88-year-old male who was just discharged yesterday at 4pm. 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 Patient was admitted for
shortness of breath and worsening progression of his chronic lung interstitial disease. Patient reports he went home , had dinner and then developed nausea vomiting diarrhea. He reports he vomited 3 times and had diarrhea 3 times. He presently
feels very weak and does not feel like he go home. He denies any fever or chills. Prior to my exam patient was given IVF. He denies nausea now.
Past History
Past History
ED Past Medical History: Arrthythmia (On Eliquis), Cancer, COPD, Hypercholesterolemia, Valvular disease, Other (Kidney stones) and Other (Recently diagnosed with interstitial lung disease 08/2023 on home oxygen 3 L/min)
ED Past Surgical History: Cardiac (Porcine valve replacement), Orthopedic and Other (Cystoscopy with ureteral stone removal, and stent placement)
Social History
Tobacco: Non-smoker
Alcohol: Occasional
Drug: None
Personal:
Living: with family
Employment: Retired
Family History
Family History: Negative CAD
Review of Systems
Review of Systems
Allergies reviewed?: Yes
All Other Systems: ROS reviewed and negative except as documented in HPI and ROS
Constitutional: Reports fatigue; Denies fever
Respiratory: Reports no symptoms; Denies trouble breathing
Cardiac: Reports no symptoms
ABD/GI: Reports nausea, vomiting and diarrhea; Denies abdominal pain
: Reports no symptoms
Musculoskeletal: Reports no symptoms
Skin: Reports no symptoms
Psychiatric: Reports no symptoms
Phy Exam
General Physical Exam
General Presentation: no apparent distress
General age: appears stated age
General Skin: warm and dry
General Habitus: elderly
General Mental: alert
General Hydration: dry mucous membranes
Course
Orders/Labs/Results
Orders:
Orders
03/14/24 03:21
CMP [Comprehensive Metabolic Panel] Urgent
Complete Blood Count/With Diff Urgent
Magnesium Urgent
Comment: ADD ON
03/14/24 Breakfast
Clear Liquid
03/14/24 06:49
0.9% Sodium Chloride 500 ml [Nss] 500 ml IV BOLUS
03/14/24 07:47
Electrocardiogram (*1) Stat
Reason for Study: Abdominal Pain
EKG- Treatment ONCE
03/14/24 07:59
COVID-19 Antigen Urgent
Source: Nasal Swab
Urinalysis Reflex To Culture Urgent
Date Specimen was Collected: 03/14/24
Time Specimen was Collected: 07:52
Influenza A+B Rapid Molecular Urgent
MARYANN Source: Nasal Swab
Specimen Description:
03/14/24 09:26
Add On- LAB Urgent
Tests Added?: magnesium
03/14/24 09:36
Admit/Transfer Patient As Directed
Co-Sign Provider:
Level of Care: Observation services
Assign to:: Telemetry
Physician / Group: Joleen Cortes
Diagnosis: gastroenteritis
Reason for Telemetry: Medication for Arrhythmia
Date to Stop Telemetry: 03/16/24
Time to Stop Telemetry: 11:00
Apixaban [Eliquis] 5 mg PO NOW STA
Dofetilide [Tikosyn] 250 mcg PO NOW STA
03/14/24 09:37
Metoprolol Xl [Toprol Xl] 12.5 mg PO NOW STA
PRN Pain Medication Management As Directed
May give lesser potent ordered pain med per pt: Yes
preference::
Protocol:: Medication orders for pain may be administered in a
manner that supports deferring to patient preference
when the pt is:
- Requesting an ordered lesser potent pain medication.
Least to most potent pain medications are defined
as: acetaminophen < NSAID < tramadol < opioids
(morphine, oxycodone, hydromorphone).
- Requesting a lesser dose of the same medication IF
ORDERED.
- Requesting a less intrusive route of administration
if both routes are prescribed by the provider (PO <
IV).
03/14/24 09:38
Code Status As Directed
Resuscitation Status: Full Code
Prednisone [Deltasone] 30 mg PO NOW STA
03/14/24 10:00
0.9% Sodium Chloride 500 ml [Nss] 500 ml IV 100 mls/hr
Flush (0.9% Sodium Chloride) [Flush (Nss)] See Dose Instructions IV PER PROTOCOL
03/14/24 12:43
Acetaminophen [Tylenol] 650 mg PO Q4HPRN PRN
Dapsone 50 mg PO DAILY
Ondansetron Injectable [Zofran] 4 mg IV Q6HPRN PRN
03/14/24 12:43
Activity As Directed
Activity Level: As Tolerated
Vital Signs As Directed
Frequency: Per unit guidelines
03/14/24 20:00
Apixaban [Eliquis] 5 mg PO BID
Dofetilide [Tikosyn] 250 mcg PO Q12
Guaifenesin [Mucinex] 600 mg PO Q12
03/14/24 22:00
Atorvastatin [Lipitor] 10 mg PO HS
Famotidine [Pepcid] 20 mg PO HS
Finasteride [Proscar] 5 mg PO HS
03/15/24 06:00
EKG [Electrocardiogram (*1)] IN AM
Reason for Study: QTc Monitoring
Basic Metabolic Panel IN AM
Magnesium IN AM
03/15/24 08:00
Metoprolol Xl [Toprol Xl] 12.5 mg PO DAILY
Prednisone [Deltasone] 30 mg PO DAILY
03/16/24 11:00
DC Protocol for Telemetry ONCE
Abnormal Lab Results
03/14/24 03/14/24
03:21 07:59
RBC 4.06 L 10^6/uL
(4.70-6.10)
Hgb 12.9 L g/dL
(13.0-18.0)
MCV 96.1 H fL
(80.0-94.0)
MCH 31.8 H pg
(27.0-31.0)
RDW 16.7 H %
(11.5-14.5)
Plt Count 123 L 10^3/uL
(130-400)
Abs Immat Gran (auto) 0.1 H 10^3/uL
(0-0.05)
Absolute Neuts (auto) 8.9 H 10^3/uL
(1.4-6.5)
Absolute Lymphs (auto) 0.4 L 10^3/uL
(1.2-3.4)
Immature Gran % 1.1 H %
(0-0.5)
Neutrophils % 88.4 H %
(42.2-75.2)
Lymphocytes % 4.3 L %
(20.5-51.1)
BUN 54 H mg/dl
(9-20)
Creatinine 1.4 H mg/dL
(0.7-1.3)
Glucose 161 H mg/dl
(70-99)
Total Bilirubin 2.2 H mg/dl
(0.2-1.3)
Urine Bilirubin 1+ A
(Negative)
03/14/24 03:21
03/14/24 03:21
Vital Signs
Initial and Last Documented VS:
Initial Vital Signs
Pulse Resp BP
97 25 110/58
03/14/24 03:12 03/14/24 03:12 03/14/24 03:12
Last Documented Vital Signs
Temp Pulse Resp BP Pulse Ox
97.6 F 93 18 92/60 98
03/14/24 13:03 03/14/24 13:03 03/14/24 13:03 03/14/24 13:03 03/14/24 13:03
*Pulse Oximetry
Patient hypoxic: no
*EKG
Interpreted by ED Provider?: Yes
Heart Rate: 95
Rate: normal
Rhythm: sinus
*Critical Care Note
Total Time (30-74mins, 75-104mins- exclusive of procedures): Not Applicable
Data Reviewed
Review of Other/Old Records Reveals: Labs, Radiology Studies and Discharge Summary
Source: patient
ED Attending Note
-
Portions of this chart may have been created with voice recognition software.� Occasional wrong word or��sound alike� substitutions may have occurred due to the inherent limitations of voice recognition software.
Discharge Plan
Departure
Patient Disposition: Admit
Date of Disposition: 03/14/24
Time of Disposition: 08:34
Admit to: Med/Surg
Admit to doctor: hospitalist
Presentation/result/management discussed w/ accepting MD/DO: Hospitalist
Patient with high blood pressure during this ER visit?: No
Condition: Fair
Covid-19: Not Applicable
Discharge Problem:
vomiting and diarrhea, Acute dehydration
Interventions
Interventions:
*Risk Screen - Suicide Last Done: 03/14/24 03:13
*General Assessment Last Done: 03/14/24 03:13
*Neglect/Abuse Screening Last Done: 03/14/24 03:13
ED- Fall Risk Assessment Last Done: 03/14/24 04:44
*ED COVID-19 Vaccine History Last Done: 03/14/24 03:13
*Nursing Disposition Last Done: 03/14/24 12:38
[facility]-Xooz[facility]-Kxlfkqeulj Assessment Last Done: 03/14/24 04:44
Discharge Date and Time
Discharge Date/Time: 03/14/24 12:39
[2024-03-14 08:34] LABS: Urine Albumin Trace (Neg - Trace); Urine Bilirubin 1+ (Negative); Urine Character Clear (Clear); Urine Color Amber; Urine Glucose Negative (Negative); Urine Ketone Negative (Negative); Urine Leukocyte Negative (Negative); Urine Nitrite Negative (Negative); Urine Occult Blood Negative (Negative); Urine Urobilinogen Negative (Neg - 1+)
[2024-03-14 08:53] LABS: COVID-19 Antigen Negative (Negative)
--- NOTE | 2024-03-14 09:22 | HPS.HSE ---
Family Physician
-
Family Physician: Brant Kruse
Chief Complaint
-
nausea/vomiting/diarrhea
History of Present Illness
Mr. 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
on chronic hypoxic resp failure presents to the ER with acute nausea/vomiting/diarrhea the evening of discharge.
Patient states transfer to home was OK and with higher level of oxygen he denied feeling very short of breath. After dinner he had acute onset vomiting and diarrhea multiple times. He has not had diarrhea in the ER.
Currently denies feeling nauseated. No abdominal pain. No chest pain. Breathing stable. No LE swelling. No rash. No headache. No fevers/chills.
Medical History
Past Medical History
Past Medical History: Reports Other
Additional Past Medical History:
Chronic Hypoxemic Respiratory Failure - Multifactorial
Interstitial Lung Disease
Chronic HFpEF
Paroxysmal Atrial Fibrillation
Valvular Heart Disease
CKD III
Metastatic Urothelial Cell Cancer
Nephrolithiasis
BPH
Past Surgical History: Reports Other
Additional Past Surgical History:
Atrial Valve Repair
DCCV
Multiple Ablations
Loop Recorder
Left Ureterectomy
Multiple TURBT
Hernia Repair
Port Placement
Social History
Tobacco: Non-smoker
Alcohol: None
Drug: None
Family History
Family History: Not pertinent
Allergies / Home Medications
Allergies reflects when Allergies were last updated in [employer].
Home Medications with original date entered in [employer]
Allergy/Medication List:
Allergies
Allergy/AdvReac Type Severity Reaction Status Date / Time
No Known Allergies Allergy Verified 03/14/24 03:20
Home Medications
finasteride 5 mg tablet 5 mg PO HS prostate 05/25/10
simvastatin 10 mg tablet 10 mg PO HS High cholesterol 09/04/19
apixaban 5 mg tablet (Eliquis) 5 mg PO BID Blood Clot Prevention/Tx #0 tabs 01/26/24
dofetilide 250 mcg capsule 250 mcg PO Q12 Arrhythmia 30 days #60 caps 01/26/24
furosemide 20 mg tablet 20 mg PO DAILY Heart Failure 30 days #30 tabs 01/26/24
dapsone 25 mg tablet 50 mg PO DAILY Infection 02/17/24
metoprolol succinate 25 mg tablet,extended release 24 hr 12.5 mg PO DAILY Arrhythmia 03/06/24
guaifenesin 600 mg tablet, extended release 12 hr 600 mg PO Q12 #28 tabs 03/11/24
famotidine 20 mg tablet (Pepcid) 20 mg PO HS #30 tabs 03/13/24
prednisone 10 mg tablet 30 mg (3 x 10 mg) PO DAILY #90 tabs 03/13/24
Review of Systems
-
A 12 point ROS was completed and negative except as noted: Yes
Physical Exam
Vital Signs
Vital Signs
Temp Pulse Resp BP Pulse Ox
97.5 F 96 21 97/58 100
03/14/24 03:13 03/14/24 07:15 03/14/24 07:15 03/14/24 07:13 03/14/24 07:15
Physical Exam
General: No Apparent Distress and Other (appears fatigued, conversant)
HEENT: PERRLA
Respiratory: Clear; No Wheezes
Cardiac: S1/S2 and Regular Rhythm
GI: Soft and Non Tender
Musculoskeletal: Other (no edema, venous stasis discoloration)
Skin: Warm and Dry; No Rash
Neuro: AO x 3
Psych: Calm
Laboratory Results
-
03/14/24 03:21
03/14/24 03:21
Laboratory Results
Total Bilirubin 2.2 mg/dl (0.2-1.3) H 03/14/24 03:21
AST 31 U/L (17-59) 03/14/24 03:21
ALT 37 U/L (0-50) 03/14/24 03:21
Alkaline Phosphatase 67 U/L (38-126) 03/14/24 03:21
Data Reviewed
-
Diagnostic Radiology: Report Reviewed by me
Lab Data: Labs Reviewed by me
Impression/Plan
-
Mr. 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
on chronic hypoxic resp failure presents to the ER with acute nausea/vomiting/diarrhea the evening of discharge.
Triage VS: T 97.5, P 97, RR 25, BP 110/58, SpO2 100%
LABS: WBC 10.1, Hg 12.9, PLT 123, Na 138, K+ 4.4, Cr 1.4 (baseline 1.1), Glucose 161, T. Bili 2.2, AST 31, ALT 37, Alk Phos 67
EKG: NSR @ 95, LVH
MAR: NS @ 500cc
Nausea/Vomiting/Diarrhea
Gastroenteritis
-symptoms already seem improved
-admit to observation
-additional 500cc over 5 hours
-clear liquid diet
-hold diuretic
Acute on chronic kidney Disease, CKD III
-2/2 above
-IVF as above
-monitor
-hold diuretic
Chronic Hypoxic Respiratory Failure
ILD on steroid course
Recent hospitalization for acute on chronic heart failure
-At 02/16-02/25, then at [facility] 02/25-03/04, admitted to 03/06-03/13
-Continue HOUSING GRANT ANALYST prednisone taper - continue 30mg until seen by Dr. Faustin
-5-6L at rest; 8-10L with ambulation needd
HFpEF
Hx Aortic Valve Replacement 2007
-TTE 01/21/24 shows EF 59%; Well seated #23 mm stentless freestyle aortic valve with peak/mean gradients
across the aortic valve at 23/11 mmHg. No aortic regurgitation is seen.
-hold lasix
Bladder cancer s/p L robotic nephroureterectomy 09/20/2022, multiple TURBTs with new bladder tumors s/p resection
Metastatic Disease to Lung - currently treatment on hold 04/20 AE and multiple hospitalizations
-Continue Dapsone
Hx Atrial Fibrillation
-Hx ablation, cardioversion, s/p Tikosyn initiation 01/2024
-Continue Eliquis
BPH
-HOUSING GRANT ANALYST Finasteride
HLD
-HOUSING GRANT ANALYST Simvastatin
DVT prophylaxis�Eliquis
Full code
[2024-03-14] MEDS: TIKOSYN 250 MCG PO ×2 (10:07→21:03)
[2024-03-14] MEDS: ELIQUIS 5 MG PO ×2 (10:08→21:01)
[2024-03-14] MEDS: DELTASONE 30 MG PO (10:08)
[2024-03-14] MEDS: TOPROL XL 12.5 MG PO (10:08)
[2024-03-14 12:25] LABS: Magnesium 2.1 mg/dl (1.6-2.3)
[2024-03-14] MEDS: DAPSONE 50 MG PO (14:30)
[2024-03-14] MEDS: MUCINEX 600 MG PO (21:01)
[2024-03-14] MEDS: PROSCAR 5 MG PO (21:04)
[2024-03-14] MEDS: PEPCID 20 MG PO (21:06)
[2024-03-14] MEDS: LIPITOR 10 MG PO (21:06)
[2024-03-15 03:00] VITALS: BP 109/69
[2024-03-15 06:46] LABS: Blood Urea Nitrogen 39 mg/dl (9-20); Carbon Dioxide 25 mmol/L (22-30); Chloride 106 mmol/L (98-107); Estimated Creatinine Clearance 58 ml/min; Glucose 113 mg/dl (70-99); Magnesium 2.1 mg/dl (1.6-2.3); Potassium 4.3 mmol/L (3.5-5.1); Sodium 137 mmol/L (135-145); eGFR > 60.00
[2024-03-15 07:10] VITALS: BP 96/62
[2024-03-15] MEDS: ELIQUIS 5 MG PO ×2 (08:23→20:46)
[2024-03-15] MEDS: TIKOSYN 250 MCG PO ×2 (08:23→20:44)
[2024-03-15] MEDS: DAPSONE 50 MG PO (08:23)
[2024-03-15] MEDS: TOPROL XL 12.5 MG PO (08:24)
[2024-03-15] MEDS: MUCINEX 600 MG PO ×2 (08:24→20:45)
[2024-03-15] MEDS: DELTASONE 30 MG PO (08:24)
--- NOTE | 2024-03-15 10:30 | W.PN.HOSP.TC ---
Today's Communication/Plan
-
OK for DC if tolerates diet
Assessment / Plan
Assessment / Plan
Mr. 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
on chronic hypoxic resp failure presents to the ER with acute nausea/vomiting/diarrhea the evening of discharge.
Nausea/Vomiting/Diarrhea
Gastroenteritis
-symptoms resolved
-advance diet
-OK for DC if tolerates diet
Acute on chronic kidney Disease, CKD III
-resolved with IVF
Chronic Hypoxic Respiratory Failure
ILD on steroid course
Recent hospitalization for acute on chronic heart failure
-At 02/16-02/25, then at [facility] 02/25-03/04, admitted to 03/06-03/13
-Continue GREASE PRESS HELPER prednisone taper - continue 30mg until seen by Dr. Faustin
-5-6L at rest; 8-10L with ambulation needd
HFpEF
Hx Aortic Valve Replacement 2007
-TTE 01/21/24 shows EF 59%; Well seated #23 mm stentless freestyle aortic valve with peak/mean gradients
across the aortic valve at 23/11 mmHg. No aortic regurgitation is seen.
-hold lasix
Bladder cancer s/p L robotic nephroureterectomy 09/20/2022, multiple TURBTs with new bladder tumors s/p resection
Metastatic Disease to Lung - currently treatment on hold 04/20 AE and multiple hospitalizations
-Continue Dapsone
Hx Atrial Fibrillation
-Hx ablation, cardioversion, s/p Tikosyn initiation 01/2024
-Continue Eliquis
BPH
-GREASE PRESS HELPER Finasteride
HLD
-GREASE PRESS HELPER Simvastatin
DVT prophylaxis�Eliquis
Full code
Anticipated Discharge: Within 24 hours
Subjective/Interval History
-
Date of Service: March 15, 2024
he is feeling much better
wants to eat solid food and leave
Objective Data
-
Labs:
Laboratory Results
03/15/24
05:58
Sodium 137
Potassium 4.3
Chloride 106
Carbon Dioxide 25
BUN 39 H
Creatinine 1.0
Glucose 113 H
Calcium 8.0 L
Vital Signs:
Vital Signs
Temp Pulse Resp BP Pulse Ox
97.4 F 84 18 101/73 96
03/15/24 07:10 03/15/24 08:24 03/15/24 07:10 03/15/24 08:24 03/15/24 07:10
I&O
03/14/24 03/15/24 03/16/24
06:59 06:59 06:59
Intake Total 1160 / 1160
Output Total 500 / 500
Balance 660 / 660
Review of Systems
-
History Source: Patient
All other systems: Reviewed and negative
Physical Exam
-
General: Well Developed, No Apparent Distress and Comfortable
HEENT: Normocephalic, Atraumatic, Moist Mucous Membranes, Anicteric and Oxygen
Respiratory: Negative Wheezes
Cardiac: Regular Rhythm and S1/S2; Negative Calf Tenderness
GI: Soft, Nontender and Nondistended
Genito-urinary: No Costovertebral Tender
Musculoskeletal: No Clubbing and No Cyanosis
Skin: Warm and Dry
Neuro: Awake, Alert and Oriented
Psych: Calm
Data Reviewed
-
Diagnostic Radiology: Report Reviewed by me
Labs: Labs Reviewed by me
[2024-03-15 11:13] VITALS: BP 88/63
[2024-03-15 15:10] VITALS: BP 94/61
--- NOTE | 2024-03-15 16:28 | CM ---
Alert awake oriented patient who lives with his Shanice who lives in a 2 story home with 3 step to enter and elevator to bed and bathroom. He has home oxygen with [employer] He is assisted with avg daily living skills.Pt spoke of VN
and going to SNF. ordered PT OT . Will needs PT OT evals for dc planning..KLINE letter given explained and signed on chart.
[facility] hx / No SNF history
Pharmacy Lili
PCP DR Brant Kruse
PLAN Will depend on PT OT evals and observation loc
[2024-03-15 17:36] LABS: Direct Bilirubin 0.5 mg/dl (0.0-0.4); Total Bilirubin 2.1 mg/dl (0.2-1.3)
[2024-03-15 19:00] VITALS: BP 105/72
[2024-03-15] MEDS: LIPITOR 10 MG PO (20:45)
[2024-03-15] MEDS: PEPCID 20 MG PO (20:46)
[2024-03-15] MEDS: PROSCAR 5 MG PO (20:46)
[2024-03-15 23:00] VITALS: BP 99/61
[2024-03-16] VITALS (8 sets, daily range): BP systolic 89–119; BP diastolic 63–74; PULSE 78–93; O2SAT 94
[2024-03-16] MEDS: TOPROL XL 12.5 MG PO (07:45)
[2024-03-16] MEDS: DAPSONE 50 MG PO (07:45)
[2024-03-16] MEDS: ELIQUIS 5 MG PO ×2 (07:45→21:07)
[2024-03-16] MEDS: DELTASONE 30 MG PO (07:45)
[2024-03-16] MEDS: MUCINEX 600 MG PO ×2 (07:45→21:07)
[2024-03-16] MEDS: TIKOSYN 250 MCG PO ×2 (07:45→21:07)
[2024-03-16] MEDS: LASIX 20 MG PO (07:45)
--- NOTE | 2024-03-16 10:43 | W.PN.HOSP.TC ---
Today's Communication/Plan
-
PT/OT, dispo planning
Assessment / Plan
Assessment / Plan
Mr. 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
on chronic hypoxic resp failure presents to the ER with acute nausea/vomiting/diarrhea the evening of discharge.
Nausea/Vomiting/Diarrhea
Gastroenteritis
-symptoms resolved
-advance diet - tolerating
-patient's is now hospitalized with norovirus
-per patient and son - goal is now to go to SNF. Awaiting PT/OT Evals
Acute on chronic kidney Disease, CKD III
-resolved with IVF
Chronic Hypoxic Respiratory Failure
ILD on steroid course
Recent hospitalization for acute on chronic heart failure
-At 02/16-02/25, then at [facility] 02/25-03/04, admitted to 03/06-03/13
-Continue LOAD OUT WORKER prednisone taper - continue 30mg until seen by Dr. Faustin
-5-6L at rest; 8-10L with ambulation needd
HFpEF
Hx Aortic Valve Replacement 2007
-TTE 01/21/24 shows EF 59%; Well seated #23 mm stentless freestyle aortic valve with peak/mean gradients
across the aortic valve at 23/11 mmHg. No aortic regurgitation is seen.
-LOAD OUT WORKER Lasix resumed
Bladder cancer s/p L robotic nephroureterectomy 09/20/2022, multiple TURBTs with new bladder tumors s/p resection
Metastatic Disease to Lung - currently treatment on hold 04/20 AE and multiple hospitalizations
-Continue Dapsone
Hx Atrial Fibrillation
-Hx ablation, cardioversion, s/p Tikosyn initiation 01/2024
-Continue Eliquis
BPH
-LOAD OUT WORKER Finasteride
HLD
-LOAD OUT WORKER Simvastatin
DVT prophylaxis�Eliquis
Full code
Anticipated Discharge: Within 24 hours
Subjective/Interval History
-
Date of Service: March 16, 2024
he is feeling better than yesterday
breathing at baseline
Objective Data
-
Vital Signs:
Vital Signs
Temp Pulse Resp BP Pulse Ox
98.2 F 92 17 89/66 96
03/16/24 07:00 03/16/24 07:00 03/16/24 07:00 03/16/24 07:00 03/16/24 07:00
I&O
03/15/24 03/16/24 03/17/24
06:59 06:59 06:59
Intake Total 1160 / 1160 1080 / 1080 480 / 480
Output Total 500 / 500 600 / 600 400 / 400
Balance 660 / 660 480 / 480 80 / 80
Review of Systems
-
History Source: Patient
All other systems: Reviewed and negative
Physical Exam
-
General: Well Developed, No Apparent Distress and Comfortable
HEENT: Normocephalic, Atraumatic, Moist Mucous Membranes, Anicteric and Oxygen
Respiratory: Negative Wheezes
Cardiac: Regular Rhythm and S1/S2; Negative Calf Tenderness
GI: Soft, Nontender and Nondistended
Genito-urinary: No Costovertebral Tender
Musculoskeletal: No Clubbing and No Cyanosis
Skin: Warm and Dry
Neuro: Awake, Alert and Oriented
Psych: Calm
Data Reviewed
-
Diagnostic Radiology: Report Reviewed by me
Labs: Labs Reviewed by me
--- NOTE | 2024-03-16 12:43 | W.PN.UPDATE ---
Update Note
Progress Note Update
Principal diagnosis : Acute Gastroenteritis
Hospital Course :
Mr. 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
on chronic hypoxic resp failure presents to the ER with acute nausea/vomiting/diarrhea the evening of discharge.
Triage vitals stable, O2 Sat 100% on home 5L. Labs with WBC 10.1, creatinine 1.4 (baseline 1.1). At time of my evaluation in the ER, his GI symptoms were starting to improve. He was admitted to observation for conservative management of acute
gastroenteritis and mild JUAN. He received gentle IVF. GI symptoms resolved the following day and patient is tolerating a low residue diet. Creatinine returned to baseline.
Patient and family interested in SNF. Patient remains admitted for dispo planning and possible SNF.
:
--- NOTE | 2024-03-16 16:49 | CM ---
PT indicated VN .
Spoke with son Pedro Pablo [phone] Reviewed PT evals and explained SNF was not indicated.
Son said he would prefer [facility] and possibly pay out of pocket.
Suggested he speak with Etta Lay and ROLANDO tomorrow about securing a bed with or without insurance.
PLAN SNF with or without insurance
[2024-03-16] MEDS: LIPITOR 10 MG PO (21:08)
[2024-03-16] MEDS: PROSCAR 5 MG PO (21:08)
[2024-03-16] MEDS: PEPCID 20 MG PO (21:08)
[2024-03-17 03:30] VITALS: BP 104/77
[2024-03-17 06:28] VITALS: BMI 25.5
[2024-03-17 07:10] VITALS: BP 102/67
[2024-03-17] MEDS: TIKOSYN 250 MCG PO ×2 (07:17→21:19)
[2024-03-17] MEDS: TOPROL XL 12.5 MG PO (07:17)
[2024-03-17] MEDS: DELTASONE 30 MG PO (07:17)
[2024-03-17] MEDS: DAPSONE 50 MG PO (07:17)
[2024-03-17] MEDS: ELIQUIS 5 MG PO ×2 (07:17→21:18)
[2024-03-17] MEDS: LASIX 20 MG PO (07:17)
[2024-03-17] MEDS: MUCINEX 600 MG PO ×2 (07:17→21:18)
[2024-03-17 07:39] VITALS: BMI 25.5
--- NOTE | 2024-03-17 08:15 | VNURNOTE ---
Chart reviewed. Patient is current with VN nursing. Will continue to follow hospital course and DC plans. Appears that tentative DC plan is SNF. [facility] remains available.
[2024-03-17 09:57] LABS: Blood Urea Nitrogen 27 mg/dl (9-20); Calcium 8.2 mg/dl (8.4-10.2); Carbon Dioxide 29 mmol/L (22-30); Chloride 102 mmol/L (98-107); Estimated Creatinine Clearance 53 ml/min; Glucose 123 mg/dl (70-99); Potassium 4.1 mmol/L (3.5-5.1); Sodium 135 mmol/L (135-145); eGFR > 60.00
[2024-03-17 11:09] VITALS: BP 98/65
--- NOTE | 2024-03-17 11:58 | W.PN.HOSP.TC ---
Today's Communication/Plan
-
PT/OT-Home health. Patient and family requesting SNF. CM aware. Await placement. Medically stable for dc
Assessment / Plan
Assessment / Plan
Mr. 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
on chronic hypoxic resp failure presents to the ER with acute nausea/vomiting/diarrhea the evening of discharge.
Nausea/Vomiting/Diarrhea
Gastroenteritis
-symptoms resolved
-advance diet - tolerating
-patient's is now hospitalized with norovirus
-per patient and son - goal is now to go to SNF. CM on board.
Acute on chronic kidney Disease, CKD III
-resolved with IVF
Chronic Hypoxic Respiratory Failure
ILD on steroid course
Recent hospitalization for acute on chronic heart failure
-At 02/16-02/25, then at [facility] 02/25-03/04, admitted to 03/06-03/13
-Continue SHOE REPAIRER HELPER prednisone taper - continue 30mg until seen by Dr. Faustin
-5-6L at rest; 8-10L with ambulation needed
HFpEF
Hx Aortic Valve Replacement 2007
-TTE 01/21/24 shows EF 59%; Well seated #23 mm stentless freestyle aortic valve with peak/mean gradients
across the aortic valve at 23/11 mmHg. No aortic regurgitation is seen.
-SHOE REPAIRER HELPER Lasix resumed
Bladder cancer s/p L robotic nephroureterectomy 09/20/2022, multiple TURBTs with new bladder tumors s/p resection
Metastatic Disease to Lung - currently treatment on hold 04/20 AE and multiple hospitalizations
-Continue Dapsone
Hx Atrial Fibrillation
-Hx ablation, cardioversion, s/p Tikosyn initiation 01/2024
-Continue Eliquis
BPH
-SHOE REPAIRER HELPER Finasteride
HLD
-SHOE REPAIRER HELPER Simvastatin
DVT prophylaxis�Eliquis
Full code
PT/OT-Home health. Patient and family requesting SNF. CM aware. Await placement. Medically stable for dc
Anticipated Discharge: Today
Subjective/Interval History
-
Date of Service: March 17, 2024
Pt on phone paying bills
tolerating diet
remains on baseline oxygen
Objective Data
-
Labs:
Laboratory Results
03/17/24
08:41
Sodium 135
Potassium 4.1
Chloride 102
Carbon Dioxide 29
BUN 27 H
Creatinine 1.1
Glucose 123 H
Calcium 8.2 L
Vital Signs:
Vital Signs
Temp Pulse Resp BP Pulse Ox
97.7 F 87 18 98/65 99
03/17/24 11:09 03/17/24 11:09 03/17/24 11:09 03/17/24 11:09 03/17/24 11:09
I&O
03/16/24 03/17/24 03/18/24
06:59 06:59 06:59
Intake Total 1080 / 1080 1950 / 1950
Output Total 600 / 600 875 / 875
Balance 480 / 480 1075 / 1075
Physical Exam
-
General: Well Developed, No Apparent Distress and Comfortable
HEENT: Normocephalic, Atraumatic, Moist Mucous Membranes, Anicteric and Oxygen
Respiratory: Non Labored Respirations; Negative Wheezes
Cardiac: Regular Rhythm and S1/S2; Negative Calf Tenderness
GI: Soft, Nontender and Nondistended
Genito-urinary: No Costovertebral Tender
Musculoskeletal: No Clubbing and No Cyanosis
Skin: Warm and Dry
Neuro: Awake, Alert and Oriented
Psych: Calm
Data Reviewed
-
Total Time Spent with Patient (in minutes): 55
[2024-03-17 15:10] VITALS: BP 99/71
--- NOTE | 2024-03-17 16:42 | CM ---
Spoke with attending who stated that patient is medically stable for discharge. Reviewed PT. Indication is for home health. Placed a call to patient's son, Andrew, who stated that he would like for patient to transfer to A SNF, specifically [facility].
Advised patient's son that patient would need to get authorization for transfer and as the indication is for home health, and patient is extremely close to baseline, there is a large chance that patient would not meet requirements for authorization.
Patient's son stated that patient's insurance is changing to [employer] on the first. Explanation was provided that patient would still need auth through [employer] for a skilled need. Patient's son stated that family is willing to pay privately for a SNF
stay at [facility] and would like him to do PT/OT. He is aware the cost would be close to 9k as he stated that he already spoke with Alina in admissions.
Placed a call to Alina in admissions who stated that she will review referral, bed availability and will talk to Andrew to receive information about what services can be provided and what admissions needs prior to considering a transfer.
Referral sent.
CM will need to f/u with Alina in admissions tomorrow after she has had a chance to review referral and discuss financial information with patient's son.
Attending updated.
Plan: Case management will continue to follow and assist with discharge planning. Patient's son hopeful for SNF, private pay.
[2024-03-17 19:00] VITALS: BP 102/68
[2024-03-17] MEDS: LIPITOR 10 MG PO (21:17)
[2024-03-17] MEDS: PEPCID PO ×2 (21:18→21:26)
[2024-03-17] MEDS: PROSCAR 5 MG PO (21:18)
[2024-03-17 23:00] VITALS: BP 104/68
[2024-03-18 03:00] VITALS: BP 97/64
[2024-03-18] MEDS: DAPSONE 50 MG PO (07:07)
[2024-03-18] MEDS: LASIX 20 MG PO (07:07)
[2024-03-18] MEDS: ELIQUIS 5 MG PO ×2 (07:07→20:07)
[2024-03-18] MEDS: TOPROL XL 12.5 MG PO (07:07)
[2024-03-18] MEDS: MUCINEX 600 MG PO ×2 (07:07→20:07)
[2024-03-18] MEDS: TIKOSYN 250 MCG PO ×2 (07:07→20:07)
[2024-03-18] MEDS: DELTASONE 30 MG PO (07:07)
[2024-03-18 07:30] VITALS: BP 105/69
[2024-03-18 07:39] VITALS: BMI 25.5
[2024-03-18 08:15] VITALS: BMI 25.4
[2024-03-18 11:30] VITALS: BP 101/61; PULSE 83; O2SAT 94
--- NOTE | 2024-03-18 11:38 | W.PN.HOSP.TC ---
Addendum entered and electronically signed by Jamie Isaac MD 03/18/24 14:17:
More than 30 minutes spent in discharge including
Final examination of the patient
Summarizing hospital stay
Instructions for continuing care to all relevant caregivers
Preparation of discharge records, prescriptions, and referral forms
Total time spent (in minutes): 55
Original Note:
Today's Communication/Plan
-
PT/OT-Home health. -SNF private pay vs. Home 24h care-CM on board. Await final dispo plan.
Assessment / Plan
Assessment / Plan
Mr. 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
on chronic hypoxic resp failure presents to the ER with acute nausea/vomiting/diarrhea the evening of discharge.
Nausea/Vomiting/Diarrhea
Gastroenteritis
-symptoms resolved
-advance diet - tolerating
-patient's is now hospitalized with norovirus
-SNF vs. Home 24h care-CM on board. Await final dispo plan.
Acute on chronic kidney Disease, CKD III
-resolved with IVF
Chronic Hypoxic Respiratory Failure
ILD on steroid course
Recent hospitalization for acute on chronic heart failure
-At 02/16-02/25, then at [facility] 02/25-03/04, admitted to 03/06-03/13
-Continue CREDIT CONTROL ASSISTANT prednisone taper - continue 30mg until seen by Dr. Faustin. PPI added as on chronic steroids.
-5-6L at rest; 8-10L with ambulation needed
HFpEF
Hx Aortic Valve Replacement 2007
-TTE 01/21/24 shows EF 59%; Well seated #23 mm stentless freestyle aortic valve with peak/mean gradients
across the aortic valve at 23/11 mmHg. No aortic regurgitation is seen.
-CREDIT CONTROL ASSISTANT Lasix resumed
Bladder cancer s/p L robotic nephroureterectomy 09/20/2022, multiple TURBTs with new bladder tumors s/p resection
Metastatic Disease to Lung - currently treatment on hold 04/20 AE and multiple hospitalizations
-Continue Dapsone
Paroxysmal Atrial Fibrillation
-Hx ablation, cardioversion, s/p Tikosyn initiation 01/2024
-Continue Eliquis and metoprolol.
BPH
-CREDIT CONTROL ASSISTANT Finasteride
HLD
-CREDIT CONTROL ASSISTANT Simvastatin
DVT prophylaxis�Eliquis
Full code
PT/OT-Home health. -SNF private pay vs. Home 24h care- on board. Await final dispo plan.
Anticipated Discharge: Today
Subjective/Interval History
-
Date of Service: March 18, 2024
states breathing is better
now in afib-rate controlled
Objective Data
-
Vital Signs:
Vital Signs
Temp Pulse Resp BP Pulse Ox
97.3 F 75 18 105/69 96
03/18/24 07:30 03/18/24 07:30 03/18/24 07:30 03/18/24 07:30 03/18/24 07:30
I&O
03/17/24 03/18/24 03/19/24
06:59 06:59 06:59
Intake Total 1950 / 1950 1200 / 1200 480 / 480
Output Total 875 / 875 500 / 500
Balance 1075 / 1075 1200 / 1200 -20 / -20
Physical Exam
-
General: Well Developed, No Apparent Distress and Comfortable
HEENT: Normocephalic, Atraumatic, Moist Mucous Membranes, Anicteric and Oxygen
Respiratory: Non Labored Respirations; Negative Wheezes
Cardiac: S1/S2 and Irregular Rhythm; Negative Calf Tenderness
GI: Soft, Nontender and Nondistended
Genito-urinary: No Costovertebral Tender
Musculoskeletal: No Clubbing and No Cyanosis
Skin: Warm and Dry
Neuro: Awake, Alert and Oriented
Psych: Calm
[2024-03-18 15:30] VITALS: BP 109/77
--- NOTE | 2024-03-18 17:19 | CM ---
Spoke with patient's son, Andrew who stated that he feels that patient should come home when medically stable and stated that he arranged for private caregivers to come tomorrow. Family can stay with patient in the meantime.
Patient agreeable to discharge tomorrow. Patient's left today.
Plan: Case management will continue to follow and assist with discharge planning.
[2024-03-18 19:46] VITALS: BP 106/73
[2024-03-18] MEDS: LIPITOR 10 MG PO (21:29)
[2024-03-18] MEDS: PROSCAR 5 MG PO (21:29)
[2024-03-18] MEDS: PEPCID 20 MG PO (21:31)
[2024-03-18 23:38] VITALS: BP 110/72
[2024-03-19] VITALS (9 sets, daily range): BP systolic 80–118; BP diastolic 42–80; BMI 25.1
[2024-03-19] MEDS: DELTASONE 30 MG PO (07:42)
[2024-03-19] MEDS: LASIX 20 MG PO (07:42)
[2024-03-19] MEDS: TOPROL XL 12.5 MG PO ×2 (07:42→08:27)
[2024-03-19] MEDS: MUCINEX 600 MG PO ×2 (07:43→20:04)
[2024-03-19] MEDS: ELIQUIS 5 MG PO ×2 (07:43→20:04)
[2024-03-19] MEDS: TIKOSYN 250 MCG PO ×2 (07:43→20:04)
[2024-03-19] MEDS: DAPSONE 50 MG PO (07:43)
--- NOTE | 2024-03-19 07:45 | PTCARENOTE ---
pt noted on monitor in 130-150's flipping between sinus tach with PACs to SVT. Pt reports feeling 'slightly' like his heart is racing. AM toprolol and tikosyn administered. No PRN. contacting provider. Pt denies CP
--- NOTE | 2024-03-19 07:57 | PTCARENOTE ---
Pt continues with elevated HR. EKG shows AFIB RVR. pt now complaining of 1/10 chest pain. Attending notified. See MAR
[2024-03-19] MEDS: LOPRESSOR 5 MG IV (08:00)
--- NOTE | 2024-03-19 08:29 | PTCARENOTE ---
attending notified HR continued to sustain in 130-150's despit IV lopressor and scheduled AM medications. additional PO dose obtained, See MAR. Pt now c/o fatigue and continues to feel his heart racing, c/o 03/28 CP. Attending aware
[2024-03-19 08:58] LABS: Blood Urea Nitrogen 32 mg/dl (9-20); Calcium 8.2 mg/dl (8.4-10.2); Carbon Dioxide 28 mmol/L (22-30); Chloride 102 mmol/L (98-107); Estimated Creatinine Clearance 53 ml/min; Glucose 106 mg/dl (70-99); Magnesium 2.1 mg/dl (1.6-2.3); Potassium 3.3 mmol/L (3.5-5.1); Sodium 137 mmol/L (135-145); eGFR > 60.00
[2024-03-19] MEDS: KCL 40 MEQ PO (09:22)
--- NOTE | 2024-03-19 10:21 | CM ---
Addendum entered by Jenn Goel 03/19/24 10:34:
Patient accepted by [facility] 03/18/24.
Original Note:
Patient for possible discharge home with family and aides. CM reviewed IMM and patient verbally agreed, patient on restrictions and IMM documented on chart. Patient requested referral to [facility]. CM will confirm with physician and send referral via all
scripts. CM will continue to follow for discharge planning needs.
Plan; home with referral for [facility] at patient request
[2024-03-19] MEDS: NSS 500 IV (11:47)
--- NOTE | 2024-03-19 11:54 | PTCARENOTE ---
attending notified pt's BP low checked with manual. pt symptomatic. N/o bolus ivf. pt instructed not to get up without assistance. CB in reach
--- NOTE | 2024-03-19 12:08 | W.PN.HOSP.TC ---
Today's Communication/Plan
-
Monitor blood pressure and heart rate closely
Repeat potassium
Monitor on telemetry
Assessment / Plan
Assessment / Plan
Mr. 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
on chronic hypoxic resp failure presents to the ER with acute nausea/vomiting/diarrhea the evening of discharge.
Paroxysmal Atrial Fibrillation with rapid ventricular response
-Hx ablation, cardioversion, s/p Tikosyn initiation 01/2024
-Continue Eliquis and metoprolol. Metoprolol dose increased to 25 mg. Status post 5 mg Lopressor. Mild hypotension noted. Monitor closely today. Gentle IV fluid resuscitation.
Nausea/Vomiting/Diarrhea
Gastroenteritis
-symptoms resolved
-advance diet - tolerating
-patient's is now hospitalized with norovirus
-Plan for DC home with VN.
Acute on chronic kidney Disease, CKD III
-resolved with IVF
Chronic Hypoxic Respiratory Failure
ILD on steroid course
Recent hospitalization for acute on chronic heart failure
-At 02/16-02/25, then at [facility] 02/25-03/04, admitted to 03/06-03/13
-Continue MISCELLANEOUS MACHINE OPERATOR prednisone taper - continue 30mg until seen by Dr. Faustin. PPI added as on chronic steroids.
-5-6L at rest; 8-10L with ambulation needed
HFpEF
Hx Aortic Valve Replacement 2007
-TTE 01/21/24 shows EF 59%; Well seated #23 mm stentless freestyle aortic valve with peak/mean gradients
across the aortic valve at 23/11 mmHg. No aortic regurgitation is seen.
-MISCELLANEOUS MACHINE OPERATOR Lasix resumed
Bladder cancer s/p L robotic nephroureterectomy 09/20/2022, multiple TURBTs with new bladder tumors s/p resection
Metastatic Disease to Lung - currently treatment on hold 04/20 AE and multiple hospitalizations
-Continue Dapsone
BPH
-MISCELLANEOUS MACHINE OPERATOR Finasteride
HLD
-MISCELLANEOUS MACHINE OPERATOR Simvastatin
Hypokalemia
Replete and monitor
DVT prophylaxis�Eliquis
Full code
PT/OT-Home health.
Anticipated Discharge: Within 24 hours
Subjective/Interval History
-
Date of Service: March 19, 2024
Patient with atrial fibrillation with rapid ventricular response earlier today
Patient stated of symptomatic palpitation
Received IV 5 mg Lopressor and Toprol dose increased
Heart rate down trended
Objective Data
-
Labs:
Laboratory Results
03/19/24
08:06
Sodium 137
Potassium 3.3 L
Chloride 102
Carbon Dioxide 28
BUN 32 H
Creatinine 1.1
Glucose 106 H
Calcium 8.2 L
Vital Signs:
Vital Signs
Temp Pulse Resp BP Pulse Ox
97.3 F 65 18 80/42 94
03/19/24 07:00 03/19/24 07:00 03/19/24 07:00 03/19/24 11:54 03/19/24 07:00
I&O
03/18/24 03/19/24 03/20/24
06:59 06:59 06:59
Intake Total 1200 / 1200 1440 / 1440
Output Total 500 / 500
Balance 1200 / 1200 940 / 940
Physical Exam
-
General: Well Developed, No Apparent Distress and Comfortable
HEENT: Normocephalic, Atraumatic, Moist Mucous Membranes, Anicteric and Oxygen
Respiratory: Non Labored Respirations; Negative Wheezes
Cardiac: S1/S2 and Irregular Rhythm; Negative Calf Tenderness
GI: Soft, Nontender and Nondistended
Genito-urinary: No Costovertebral Tender
Musculoskeletal: No Clubbing and No Cyanosis
Skin: Warm and Dry
Neuro: Awake, Alert and Oriented
Psych: Calm
Data Reviewed
-
Total Time Spent with Patient (in minutes): 55
--- NOTE | 2024-03-19 20:40 | PTCARENOTE ---
RN received pt with a hr sustaining within the 140s for about 1.5hr and PAIL TESTER was notified regarding the hr. Intervention was to give lopressor, and draw BMP and monitor BP and Hr. Pt declined slightly to 120s area. BMP showed K+ 4.0 and mag @ 2.1. PAIL TESTER
aware and intervention completed
[2024-03-19] MEDS: PROSCAR 5 MG PO (21:04)
[2024-03-19] MEDS: LIPITOR 10 MG PO (21:04)
[2024-03-19] MEDS: PEPCID 20 MG PO (21:04)
--- NOTE | 2024-03-19 21:31 | W.PN.UPDATE ---
Addendum entered and electronically signed by JOSUE Culver 03/20/24 06:40:
around 4 am, patient is hypotensive with SBP 80s to low 90s.
IVF bolus 250cc NSS and one time order of midodrine 5mg was given.
Original Note:
Update Note
Progress Note Update
hr in 140s, bp 106/55. asymptomatic. bmp, mag ordered stat, and one time order of IV Lopressor 2.5 mg was given.
[2024-03-19] MEDS: LOPRESSOR 2.5 MG IV (21:51)
[2024-03-19 22:24] LABS: Blood Urea Nitrogen 36 mg/dl (9-20); Calcium 8.2 mg/dl (8.4-10.2); Carbon Dioxide 27 mmol/L (22-30); Chloride 101 mmol/L (98-107); Estimated Creatinine Clearance 49 ml/min; Glucose 158 mg/dl (70-99); Magnesium 2.1 mg/dl (1.6-2.3); Sodium 132 mmol/L (135-145); eGFR 58.89
[2024-03-20] VITALS (8 sets, daily range): BP systolic 81–101; BP diastolic 55–79; PULSE 83–86; O2SAT 95; BMI 25.2
--- NOTE | 2024-03-20 03:38 | PTCARENOTE ---
RN notified DISEASE EDUCATION SPECIALIST regarding manual BP for Q4 vitals being 90/64. DISEASE EDUCATION SPECIALIST suggested intervention to be PO midodrine and 250ml bolus. Pt currently tolerating bolus. nurse to recheck vitals when bolus is completed. RN continues to monitor.
[2024-03-20] MEDS: NSS 250 IV (03:51)
[2024-03-20] MEDS: ProAmatine 5 MG PO (03:51)
[2024-03-20] MEDS: DELTASONE 30 MG PO (08:36)
[2024-03-20] MEDS: MUCINEX 600 MG PO ×2 (08:37→21:05)
[2024-03-20] MEDS: ELIQUIS 5 MG PO ×2 (08:37→21:05)
[2024-03-20] MEDS: DAPSONE 50 MG PO (08:37)
[2024-03-20] MEDS: LASIX PO (10:03)
[2024-03-20] MEDS: TOPROL XL 25 MG PO (10:03)
[2024-03-20] MEDS: TIKOSYN 250 MCG PO ×2 (10:03→21:05)
--- NOTE | 2024-03-20 11:26 | W.PN.HOSP.TC ---
Today's Communication/Plan
-
Monitor HR with activity
Check EKG
monitor BP w/activity
Home if HR/BP stable
Assessment / Plan
Assessment / Plan
Mr. 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
on chronic hypoxic resp failure presents to the ER with acute nausea/vomiting/diarrhea the evening of discharge.
Paroxysmal Atrial Fibrillation with rapid ventricular response
-Hx ablation, cardioversion, s/p Tikosyn initiation 01/2024
-Continue Eliquis and metoprolol. Metoprolol dose increased to 25 mg. Monitor BP. Monitor HR with activity.
Nausea/Vomiting/Diarrhea
Gastroenteritis
-symptoms resolved
-advance diet - tolerating
-patient's is now hospitalized with norovirus
-Plan for DC home with VN.
Acute on chronic kidney Disease, CKD III
-resolved with IVF
Chronic Hypoxic Respiratory Failure
ILD on steroid course
Recent hospitalization for acute on chronic heart failure
-At 02/16-02/25, then at [facility] 02/25-03/04, admitted to 03/06-03/13
-Continue STUDIO GRIP prednisone taper - continue 30mg until seen by Dr. Faustin. PPI added as on chronic steroids.
-5-6L at rest; 8-10L with ambulation needed
HFpEF
Hx Aortic Valve Replacement 2007
-TTE 01/21/24 shows EF 59%; Well seated #23 mm stentless freestyle aortic valve with peak/mean gradients
across the aortic valve at 23/11 mmHg. No aortic regurgitation is seen.
-STUDIO GRIP Lasix resumed. Pt compliant with FR and at times only drinking 20-24oz liquids.
Bladder cancer s/p L robotic nephroureterectomy 09/20/2022, multiple TURBTs with new bladder tumors s/p resection
Metastatic Disease to Lung - currently treatment on hold 04/20 AE and multiple hospitalizations
-Continue Dapsone
BPH
-STUDIO GRIP Finasteride
HLD
-STUDIO GRIP Simvastatin
Hypokalemia
Replete and monitor
DVT prophylaxis�Eliquis
Full code
PT/OT-Home health
d/w with patient son Records Management Coordinator at bedside
d/w with spouse over the phone.
Anticipated Discharge: Within 24 hours
Subjective/Interval History
-
Date of Service: March 20, 2024
Overnight events noted
currently feeling tired as been up since 4am
remains on baseline oxygen
going back and forth to afib.
Objective Data
-
Vital Signs:
Vital Signs
Temp Pulse Resp BP Pulse Ox
97.8 F 82 17 81/55 99
03/20/24 11:04 03/20/24 11:04 03/20/24 11:04 03/20/24 11:04 03/20/24 11:04
I&O
03/19/24 03/20/24 03/21/24
06:59 06:59 06:59
Intake Total 1440 / 1440 600 / 600
Output Total 500 / 500 800 / 800
Balance 940 / 940 -200 / -200
Physical Exam
-
General: Well Developed, No Apparent Distress and Comfortable
HEENT: Normocephalic, Atraumatic, Moist Mucous Membranes, Anicteric and Oxygen
Respiratory: Clear to Auscultation and Non Labored Respirations; Negative Wheezes
Cardiac: S1/S2; Negative Calf Tenderness
GI: Soft, Nontender and Nondistended
Genito-urinary: No Costovertebral Tender
Musculoskeletal: No Clubbing and No Cyanosis
Skin: Warm and Dry
Neuro: Awake, Alert and Oriented
Psych: Calm
Data Reviewed
-
Total Time Spent with Patient (in minutes): 55
[2024-03-20] MEDS: NSS 500 IV (14:37)
--- NOTE | 2024-03-20 15:11 | CM ---
Spoke with attending who stated that he is not clearing patient for discharge today.
Plan: Case management will continue to follow and assist with discharge planning. Home when stable.
[2024-03-20] MEDS: PEPCID 20 MG PO (21:05)
[2024-03-20] MEDS: PROSCAR 5 MG PO (21:05)
[2024-03-20] MEDS: LIPITOR 10 MG PO (21:05)
[2024-03-21] VITALS (8 sets, daily range): BP systolic 91–116; BP diastolic 58–90; BMI 25.2
[2024-03-21] MEDS: MUCINEX 600 MG PO ×2 (09:17→19:39)
[2024-03-21] MEDS: DAPSONE 50 MG PO (09:19)
[2024-03-21] MEDS: TIKOSYN 250 MCG PO ×2 (09:20→19:39)
[2024-03-21] MEDS: ELIQUIS 5 MG PO ×2 (09:20→19:39)
[2024-03-21] MEDS: TOPROL XL 25 MG PO (09:20)
[2024-03-21] MEDS: DELTASONE 30 MG PO (09:22)
--- NOTE | 2024-03-21 11:02 | W.PN.HOSP.TC ---
Today's Communication/Plan
-
Monitor HR-if stable plan for dc
Check EKG
Hold lasix for few days
cont prednisone
cont toprol
Assessment / Plan
Assessment / Plan
Mr. 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
on chronic hypoxic resp failure presents to the ER with acute nausea/vomiting/diarrhea the evening of discharge.
Paroxysmal Atrial Fibrillation with rapid ventricular response
-Hx ablation, cardioversion, s/p Tikosyn initiation 01/2024
-Continue Eliquis and metoprolol. Metoprolol dose increased to 25 mg.
-Check EKG. Sensitive to rate control agents.
Nausea/Vomiting/Diarrhea
Gastroenteritis
-symptoms resolved
-advance diet - tolerating
-patient's is now hospitalized with norovirus
-Plan for DC home with VN.
Acute on chronic kidney Disease, CKD III
-resolved with IVF
Chronic Hypoxic Respiratory Failure
ILD on steroid course
Recent hospitalization for acute on chronic heart failure
-At 02/16-02/25, then at [facility] 02/25-03/04, admitted to 03/06-03/13
-Continue STROKE COORDINATOR prednisone taper - continue 30mg until seen by Dr. Faustin. PPI added as on chronic steroids.
-5-6L at rest; 8-10L with ambulation needed
HFpEF
Hx Aortic Valve Replacement 2007
-TTE 01/21/24 shows EF 59%; Well seated #23 mm stentless freestyle aortic valve with peak/mean gradients
across the aortic valve at 23/11 mmHg. No aortic regurgitation is seen.
-STROKE COORDINATOR Lasix held for now and can be restarted once appetite back to baseline .Pt compliant with FR and at times only drinking 20-24oz liquids.
Bladder cancer s/p L robotic nephroureterectomy 09/20/2022, multiple TURBTs with new bladder tumors s/p resection
Metastatic Disease to Lung - currently treatment on hold 04/20 AE and multiple hospitalizations
-Continue Dapsone
BPH
-STROKE COORDINATOR Finasteride
HLD
-STROKE COORDINATOR Simvastatin
Hypokalemia
Replete and monitor
DVT prophylaxis�Eliquis
Full code
PT/OT-Home health
Anticipated Discharge: Within 24 hours
Subjective/Interval History
-
Date of Service: March 21, 2024
BP stabilized.
feeling better
HR was elevated with walking to bathroom but asymptomatic
tele reviewed
Objective Data
-
Vital Signs:
Vital Signs
Temp Pulse Resp BP Pulse Ox
98.0 F 112 20 102/69 96
03/21/24 10:26 03/21/24 10:26 03/21/24 10:26 03/21/24 10:26 03/21/24 10:26
I&O
03/20/24 03/21/24 03/22/24
06:59 06:59 06:59
Intake Total 600 / 600 1320 / 1320
Output Total 800 / 800 1500 / 1500
Balance -200 / -200 -180 / -180
Physical Exam
-
General: Well Developed, No Apparent Distress and Comfortable
HEENT: Normocephalic, Atraumatic, Moist Mucous Membranes, Anicteric and Oxygen
Respiratory: Clear to Auscultation and Non Labored Respirations; Negative Wheezes
Cardiac: S1/S2; Negative Calf Tenderness
GI: Soft, Nontender and Nondistended
Genito-urinary: No Costovertebral Tender
Musculoskeletal: No Clubbing and No Cyanosis
Skin: Warm and Dry
Neuro: Awake, Alert and Oriented
Psych: Calm
Data Reviewed
-
Total Time Spent with Patient (in minutes): 55
[2024-03-21] MEDS: ProAmatine 5 MG PO ×2 (13:54→18:06)
--- NOTE | 2024-03-21 18:29 | PTCARENOTE ---
Received patient this am AAOx3. Pt ambulated to bathom this am with assistance of one an walker. Pt gets very ACUÑA. 02 was at 6 L via Nasal cannula. O2 sat 96%. Pt in Afib art 11:15 am. Pt then at 1300 A fib with RVR. EKG done to confirm. HR in
the 110-[address] Isaac aware. pt hypotensive. B/P range -91/58- 107/70. Pt started on Midodrine. B/P increased to the 104/70. Pt currently on Tikosyn, Toprol for rate control. Pt also on eliquis. Pt tolerated diet well. POC discussed
with Dr. isaac. Cont to assess patient status.
[2024-03-21] MEDS: PEPCID 20 MG PO (21:29)
[2024-03-21] MEDS: LIPITOR 10 MG PO (21:29)
[2024-03-21] MEDS: PROSCAR 5 MG PO (21:29)
[2024-03-22] VITALS (7 sets, daily range): BP systolic 92–115; BP diastolic 58–75; PULSE 85; O2SAT 96; BMI 25.2
[2024-03-22] MEDS: DAPSONE 50 MG PO (08:44)
[2024-03-22] MEDS: DELTASONE 30 MG PO (08:44)
[2024-03-22] MEDS: ELIQUIS 5 MG PO ×2 (08:45→22:05)
[2024-03-22] MEDS: TOPROL XL 25 MG PO (08:45)
[2024-03-22] MEDS: TIKOSYN 250 MCG PO ×2 (08:45→22:04)
[2024-03-22] MEDS: MUCINEX 600 MG PO ×2 (08:45→22:05)
[2024-03-22] MEDS: ProAmatine 5 MG PO (08:45)
[2024-03-22 09:22] LABS: % Basophils 0.7 % (0-2); % Eosinophils 0.9 % (0-6); % Immature Granulocytes 4.1 % (0-0.5); % Lymphocytes 25.7 % (20.5-51.1); % Monocytes 7.5 % (1.7-9.3); % Neutrophils 61.1 % (42.2-75.2); Absolute Basophils 0.1 10^3/uL (0-0.2); Absolute Eosinophils 0.1 10^3/uL (0-0.7); Absolute Immature Granulocytes 0.3 10^3/uL (0-0.05); Absolute Lymphocytes 1.9 10^3/uL (1.2-3.4); Absolute Monocytes 0.6 10^3/uL (0.1-0.6); Absolute Neutrophils 4.5 10^3/uL (1.4-6.5); Hematocrit 32.5 % (39.0-52.0); Hemoglobin 10.6 g/dL (13.0-18.0); Mean Corp Hgb Conc. 32.6 g/dL (33.0-37.0); Mean Corpuscular Volume 98.2 fL (80.0-94.0); Mean Platelet Volume 9.7 fL (7.4-10.4); Nucleated Red Blood Cells % 0 % (-); Platelet Count 161 10^3/uL (130-400); Red Blood Cell Count 3.31 10^6/uL (4.70-6.10); Red Cell Dist. Width 17.1 % (11.5-14.5); White Blood Cell Count 7.4 10^3/uL (4.8-10.8)
[2024-03-22 09:43] LABS: Blood Urea Nitrogen 28 mg/dl (9-20); Calcium 8.5 mg/dl (8.4-10.2); Carbon Dioxide 31 mmol/L (22-30); Chloride 99 mmol/L (98-107); Estimated Creatinine Clearance 49 ml/min; Glucose 139 mg/dl (70-99); Potassium 3.7 mmol/L (3.5-5.1); Sodium 135 mmol/L (135-145); eGFR 58.89
--- NOTE | 2024-03-22 14:07 | W.PN.HOSP.TC ---
Addendum entered and electronically signed by Jamie Isaac MD 03/22/24 15:11:
General: Well Developed, No Apparent Distress and Comfortable
HEENT: Normocephalic, Atraumatic, Moist Mucous Membranes, Anicteric and Oxygen
Respiratory: Clear to Auscultation and Non Labored Respirations; Negative Wheezes
Cardiac: S1/S2;
GI: Soft, Nontender and Nondistended
Genito-urinary: No Costovertebral Tender
Musculoskeletal: No Clubbing and No Cyanosis
Skin: Warm and Dry
Neuro: Awake, Alert and Oriented
Psych: Calm
Original Note:
Today's Communication/Plan
-
Monitor HR/BP
If aifb -may need digoxin.
hold lasix
Assessment / Plan
Assessment / Plan
Mr. 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
on chronic hypoxic resp failure presents to the ER with acute nausea/vomiting/diarrhea the evening of discharge.
Paroxysmal Atrial Fibrillation with rapid ventricular response
-Hx ablation, cardioversion, s/p Tikosyn initiation 01/2024
-Continue Eliquis and metoprolol. Metoprolol dose increased to 25 mg.
-tele converted to NSR.
-d/w with Dr. Bennett-recommending to monitor as converted to NSR. If back in afib then will follow up. If in afib may require digoxin. Did not tolerate to sotalol. Amiodarone toxicity. BP wont handle additional increase in lopressor.
Nausea/Vomiting/Diarrhea
Gastroenteritis
-symptoms resolved
-advance diet - tolerating
-Plan for DC home with VN.
Acute on chronic kidney Disease, CKD III
-resolved with IVF
Chronic Hypoxic Respiratory Failure
ILD on steroid course
Recent hospitalization for acute on chronic heart failure
-At 02/16-02/25, then at [facility] 02/25-03/04, admitted to 03/06-03/13
-Continue MARKING MACHINE OPERATOR prednisone taper - continue 30mg until seen by Dr. Faustin. PPI added as on chronic steroids.
-5-6L at rest; 8-10L with ambulation needed
HFpEF
Hx Aortic Valve Replacement 2007
-TTE 01/21/24 shows EF 59%; Well seated #23 mm stentless freestyle aortic valve with peak/mean gradients
across the aortic valve at 23/11 mmHg. No aortic regurgitation is seen.
-MARKING MACHINE OPERATOR Lasix held for now and can be restarted once appetite back to baseline .Pt compliant with FR and at times only drinking 20-24oz liquids.
Bladder cancer s/p L robotic nephroureterectomy 09/20/2022, multiple TURBTs with new bladder tumors s/p resection
Metastatic Disease to Lung - currently treatment on hold 04/20 AE and multiple hospitalizations
-Continue Dapsone
BPH
-MARKING MACHINE OPERATOR Finasteride
HLD
-MARKING MACHINE OPERATOR Simvastatin
Hypokalemia
Replete and monitor
DVT prophylaxis�Eliquis
Full code
PT/OT-Home health
d/w with cardiology
d/w with spouse over the phone in details.
Anticipated Discharge: 24 - 48 hours
Subjective/Interval History
-
Date of Service: March 22, 2024
Tele with tachycardia
going back and forth form afib to sinus tachycardia
currently switched to NSR
bp soft at times
Objective Data
-
Labs:
Laboratory Results
03/22/24
09:12
WBC 7.4
Hgb 10.6 L
Hct 32.5 L
Plt Count 161
Sodium 135
Potassium 3.7
Chloride 99
Carbon Dioxide 31 H
BUN 28 H
Creatinine 1.2
Glucose 139 H
Calcium 8.5
Vital Signs:
Vital Signs
Temp Pulse Resp BP Pulse Ox
98.1 F 81 16 92/61 96
03/22/24 13:11 03/22/24 13:11 03/22/24 13:11 03/22/24 13:11 03/22/24 13:11
I&O
03/21/24 03/22/24 03/23/24
06:59 06:59 06:59
Intake Total 1320 / 1320 720 / 720
Output Total 1500 / 1500 1400 / 1400
Balance -180 / -180 -680 / -680
Data Reviewed
-
Total Time Spent with Patient (in minutes): 55
[2024-03-22] MEDS: PROSCAR 5 MG PO (22:05)
[2024-03-22] MEDS: LIPITOR 10 MG PO (22:05)
[2024-03-22] MEDS: PEPCID 20 MG PO (22:05)
[2024-03-23 05:42] VITALS: BMI 25.4
[2024-03-23 07:00] VITALS: BP 104/68
[2024-03-23] MEDS: DAPSONE 50 MG PO (08:55)
[2024-03-23] MEDS: ELIQUIS 5 MG PO (08:55)
[2024-03-23] MEDS: MUCINEX 600 MG PO (08:55)
[2024-03-23] MEDS: DELTASONE 30 MG PO (08:55)
[2024-03-23] MEDS: TIKOSYN 250 MCG PO (08:55)
[2024-03-23] MEDS: TOPROL XL PO (08:56)
[2024-03-23 11:00] VITALS: BP 107/58
--- NOTE | 2024-03-23 11:16 | W.PN.HOSP.TC ---
Today's Communication/Plan
-
dc home
Assessment / Plan
Assessment / Plan
Mr. 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
on chronic hypoxic resp failure presents to the ER with acute nausea/vomiting/diarrhea the evening of discharge.
Paroxysmal Atrial Fibrillation with rapid ventricular response
-Hx ablation, cardioversion, s/p Tikosyn initiation 01/2024
-Continue Eliquis and metoprolol. Metoprolol dose increased to 25 mg.
-tele converted to NSR.
-d/w with Dr. Bennett-recommending to monitor as converted to NSR. Remains in NSR. Hr stable with activity.
Nausea/Vomiting/Diarrhea
Gastroenteritis
-symptoms resolved
-advance diet - tolerating
-Plan for DC home with VN.
Acute on chronic kidney Disease, CKD III
-resolved with IVF
Chronic Hypoxic Respiratory Failure
ILD on steroid course
Recent hospitalization for acute on chronic heart failure
-At 02/16-02/25, then at [facility] 02/25-03/04, admitted to 03/06-03/13
-Continue ELECTRONICS INSTALLER prednisone taper - continue 30mg until seen by Dr. Faustin. PPI added as on chronic steroids.
-5-6L at rest; 8-10L with ambulation needed
HFpEF
Hx Aortic Valve Replacement 2007
-TTE 01/21/24 shows EF 59%; Well seated #23 mm stentless freestyle aortic valve with peak/mean gradients
across the aortic valve at 23/11 mmHg. No aortic regurgitation is seen.
-ELECTRONICS INSTALLER Lasix held for now and can be restarted once appetite back to baseline .Pt compliant with FR and at times only drinking 20-24oz liquids.
Bladder cancer s/p L robotic nephroureterectomy 09/20/2022, multiple TURBTs with new bladder tumors s/p resection
Metastatic Disease to Lung - currently treatment on hold 04/20 AE and multiple hospitalizations
-Continue Dapsone
BPH
-ELECTRONICS INSTALLER Finasteride
HLD
-ELECTRONICS INSTALLER Simvastatin
Hypokalemia
Replete and monitor
DVT prophylaxis�Eliquis
Full code
PT/OT-Home health
d/w with cardiology on 03/22/24
d/w with spouse over the phone in details.
More than 30 minutes spent in discharge including
Final examination of the patient
Summarizing hospital stay
Instructions for continuing care to all relevant caregivers
Preparation of discharge records, prescriptions, and referral forms
Total time spent (in minutes): 55
Anticipated Discharge: Today
Subjective/Interval History
-
Date of Service: March 23, 2024
Converted to NSR
HR 78
Worked with PT yesterday
Objective Data
-
Vital Signs:
Vital Signs
Temp Pulse Resp BP Pulse Ox
98.1 F 66 16 104/68 95
03/23/24 07:00 03/23/24 08:56 03/23/24 07:00 03/23/24 08:56 03/23/24 10:43
I&O
03/22/24 03/23/24 03/24/24
06:59 06:59 06:59
Intake Total 720 / 720 1540 / 1540
Output Total 1400 / 1400 420 / 420
Balance -680 / -680 1120 / 1120
Physical Exam
-
General: Well Developed, No Apparent Distress and Comfortable
HEENT: Normocephalic, Atraumatic, Moist Mucous Membranes, Anicteric and Oxygen
Respiratory: Clear to Auscultation and Non Labored Respirations; Negative Wheezes
Cardiac: S1/S2; Negative Calf Tenderness
GI: Soft, Nontender and Nondistended
Genito-urinary: No Costovertebral Tender
Musculoskeletal: No Clubbing and No Cyanosis
Skin: Warm and Dry
Neuro: Awake, Alert and Oriented
Psych: Calm
--- NOTE | 2024-03-23 11:24 | W.DCSUMMARY ---
Discharge Summary
Discharge Data
Date of Admission: 03/17/24
Date of Discharge: 03/23/24
-
Pending Results: No
Hospital Course
Mr. 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
on chronic hypoxic resp failure presents to the ER with acute nausea/vomiting/diarrhea the evening of discharge.� He was admitted�� for conservative management of acute gastroenteritis and mild JUAN.� He received gentle IVF.� GI symptoms resolved the
following day and patient is tolerating a low residue diet.� Creatinine returned to baseline.� Patient was eval by physical and Occupational Therapy.� Initial plan was for SNF however patient did not qualify.� Patient also with episode of rapid
ventricular response.� Metoprolol dose was increased.� Heart rate stabilized.� Patient converted to normal sinus rhythm. Patient will� home with plans for 09/10 caregiver.
Discharge Plan
-
Patient Disposition: Home with Home Care
Discharge Diagnosis/Procedures: Acute Gastroenteritis
Dehydration
Atrial fibrillation with mild ventricular response.
Condition: Fair
Diet: 2 Gram Sodium
Activity: As tolerated
Additional Activity: 4-6L oxygen at rest; 8-10L O2 with exertion
Driving Restrictions: No driving
Bathing Restrictions: None
Referrals:
Mamadou Faustin MD [Active] - in one to two weeks
Brant Kruse MD [Family Provider] - in less than 1 week
Additional Discharge Medication Instructions: Continue Prednisone 30mg daily until follow up with Dr. Faustin
Prescriptions:
New
pantoprazole [Protonix] 40 mg tablet,delayed release (DR/EC)
40 mg PO DAILY Qty: 30 0RF
Continued
finasteride 5 MG tablet
5 mg PO HS
simvastatin 10 MG tablet
10 mg PO HS
dofetilide 250 mcg Capsule
250 mcg PO Q12 30 Days Qty: 60 0RF
Eliquis 5 mg Tablet
5 mg PO BID Qty: 0 0RF
dapsone 25 mg Tablet
50 mg PO DAILY
prednisone 10 mg tablet
30 mg PO DAILY Qty: 90 0RF
Changed
metoprolol succinate 25 mg tablet extended release 24 hr
25 mg PO DAILY 30 Days Qty: 30 0RF
Held
furosemide 20 mg Tablet
20 mg PO DAILY 30 Days Qty: 30 0RF
Hold Instructions: Resume on 03/26/24.
Discharge Orders:
Discharge Patient (As Directed); Ordered 03/23/24
Ordered By: Jamie Isaac
Discharge Date and Time
Discharge Date/Time: 03/23/24 14:50
Print Language: CROATIAN
--- NOTE | 2024-03-23 14:04 | CM ---
Met with patient at beside; reported that family will transport home
IMM benefit explained; form signed @ 1350
Plan: Discharge to home w/ [facility]
[2024-03-23 15:03] VITALS: BP 114/62
== END 2024-03-23 14:50 | disposition home health service (06) | DRG 683 ==
LOC: 3 WEST ACU 08:28
PROVIDERS: Emergency Medicine; Nurse Practitioner; Nurse Practitioner Family; ADMITTING PHYSICIAN Student in an Organized Health Care Education/Training Program; ATTENDING PHYSICIAN Hospitalist; EMERGENCY PHYSICIAN Emergency Medicine; FAMILY PHYSICIAN Internal Medicine
DX: N17.9 Acute kidney failure, unspecified (principal); C78.01 Secondary malignant neoplasm of right lung; I50.32 Chronic diastolic (congestive) heart failure; J84.9 Interstitial pulmonary disease, unspecified; J96.11 Chronic respiratory failure with hypoxia; C78.02 Secondary malignant neoplasm of left lung; K52.9 Noninfective gastroenteritis and colitis, unspecified; C67.9 Malignant neoplasm of bladder, unspecified; I48.0 Paroxysmal atrial fibrillation; E87.6 Hypokalemia; E78.00 Pure hypercholesterolemia, unspecified; J44.9 Chronic obstructive pulmonary disease, unspecified; E86.0 Dehydration; N18.30 Chronic kidney disease, stage 3 unspecified; N40.0 Benign prostatic hyperplasia without lower urinary tract symptoms; Z87.442 Personal history of urinary calculi; Z99.81 Dependence on supplemental oxygen; Z95.3 Presence of xenogenic heart valve; Z79.01 Long term (current) use of anticoagulants; Z85.50 Personal history of malignant neoplasm of unspecified urinary tract organ; Z11.52 Encounter for screening for COVID-19; Z79.52 Long term (current) use of systemic steroids
CPT/HCPCS: 80048; 80053; 81003; 82247; 82248; 83735; 85025; 87502; 87811; 93005; 96360; 96361; 97110; 97116; 97163; 97167; 97530; 99284

== ENCOUNTER → 2024-04-23 10:33 | Outpatient (REF) | payer BC, SELFPAY | LOC: RAD 10:33 | PROVIDERS: ATTENDING PHYSICIAN Internal Medicine Critical Care Medicine | DX: R04.2 Hemoptysis (principal) | CPT/HCPCS: 71046 ==

== ENCOUNTER 2024-04-26 15:36 | Inpatient (IN) | payer OTHER, SELFPAY ==
[2024-04-26] VITALS (8 sets, daily range): BP systolic 85–110; BP diastolic 61–74; BMI 27.8; BMI 27.7
--- NOTE | 2024-04-26 12:50 | ED.GENMED ---
History of Present Illness
General
Chief Complaint: Breathing Problem
Source: patient
Time Seen by Provider: 04/26/24 12:31
History of Present Illness
History of Present Illness:
88-year-old male presents to the emergency room complaining of shortness of breath. Patient has a history of interstitial lung disease for which he is cared for by Dr. Faustin. He is on chronic oxygen therapy at 10 L. He does take oral steroids
and has been on a tapering process. He is currently taking 20 mg of prednisone. Patient states he began feeling unwell after falling asleep with a oxygen facemask. While sleeping it became displaced and he was not receiving any oxygen. When he
awoke he of course replaced the oxygen but has been feeling more short of breath than baseline ever since. He denies any fever. He denies any chest pain. He has been experiencing hemoptysis over the past week or so. He describes the sputum as
being streaked with blood.
Past History
Past History
ED Past Medical History: Arrthythmia (On Eliquis), Cancer, COPD, Hypercholesterolemia, Valvular disease, Other (Kidney stones) and Other (Recently diagnosed with interstitial lung disease 08/2023 on home oxygen 3 L/min)
ED Past Surgical History: Cardiac (Porcine valve replacement), Orthopedic and Other (Cystoscopy with ureteral stone removal, and stent placement)
Social History
Tobacco: Non-smoker
Alcohol: Occasional
Drug: None
Personal:
Living: with family
Employment: Retired
Family History
Family History: Negative CAD
Phy Exam
Physical Exam
Physical Exam:
General: Awake, Alert, Oriented X3. Increased work of breathing, appears chronically ill
Vitals: Hypoxic
Head: Atraumatic
Eyes: Pupils equal, EOMI
Throat: Airway intact, no exudates
Neck: Trachea midline
Lungs: Crackles bilateral lower lung lao
Heart: Regular rate, no murmurs
Abd: Soft, Nontender, No pulsatile mass
Neuro: Nonfocal
Skin: Warm, dry, no rash
Extremities: pulses equal b/l, no edema
Scores
Heart Failure Risk
Heart Failure Risk Score: Yes
History of Stroke or TIA: No
History of intubation for respiratory distress: No
Heart rate on ED arrival >/= 110: No
SaO2 <90% on arrival on room air: Yes
HR >/=110 during 3min walk test (or too ill to perform test): Yes
ECG has acute ischemic changes: No
Urea >/=12mmol/L (BUN 33.6mg/dL): No
Serum CO2>/=35mmol/L: No
Troponin I or T elevated to NE Level (0.4mg/dL): No
NT-proBNP >/=5,000ng/L (5,000pg/ml): No
HF Risk Score: 3
Admission Status: HIGH RISK 15.9% Consider SNF treatment or admission to hospital
Course
Orders/Labs/Results
Orders:
Orders
04/26/24 12:40
Electrocardiogram (*1) Urgent
Reason for Study: Shortness of Breath
04/26/24 12:41
EKG- Treatment ONCE
04/26/24 12:42
Basic Metabolic Panel Urgent
CMP [Comprehensive Metabolic Panel] Urgent
Complete Blood Count/No Diff Urgent
Complete Blood Count/With Diff Urgent
04/26/24 12:46
CR Chest Portable - 1 View Urgent
Comment:
Reason For Exam: sob
Reason Study Needs to be Portable: Unable to Transport
04/26/24 12:54
COVID-19 Antigen Urgent
Source: Nasal Swab
NT-proBNP Urgent
Influenza A+B Rapid Molecular Urgent
MARYANN Source: Nasal Swab
Specimen Description:
04/26/24 13:57
Furosemide [Lasix] 40 mg IV NOW STA
04/26/24 14:07
CT Chest W/o Iv Contrast Urgent
Comment:
Reason For Exam: increasing hypoxia, ILD
04/26/24 14:49
Admit/Transfer Patient As Directed
Co-Sign Provider:
Level of Care: Inpatient admission
Assign to:: Telemetry
Physician / Group: Va
Diagnosis: Hypoxia, CHF
Reason for Telemetry: Acute Heart Failure
Date to Stop Telemetry: 04/29/24
Time to Stop Telemetry: 11:00
Reason for Hospitalization: IV Diuretics
Expected length of stay greater than two midnights?: Yes
ELOS- Estimated Length of Stay in days: 3
I certify the patient meets the requirements for IP care: Yes
04/26/24 14:50
Procalcitonin Urgent
04/26/24 14:51
Code Status As Directed
Resuscitation Status: Full Code
04/29/24 11:00
DC Protocol for Telemetry ONCE
Abnormal Lab Results
04/26/24
12:42
RBC 2.83 L 10^6/uL
(4.70-6.10)
Hgb 9.0 L g/dL
(13.0-18.0)
Hct 29.1 L %
(39.0-52.0)
MCV 102.8 H fL
(80.0-94.0)
MCH 31.8 H pg
(27.0-31.0)
MCHC 30.9 L g/dL
(33.0-37.0)
RDW 16.6 H %
(11.5-14.5)
Abs Immat Gran (auto) 0.1 H 10^3/uL
(0-0.05)
Absolute Neuts (auto) 8.5 H 10^3/uL
(1.4-6.5)
Absolute Lymphs (auto) 0.6 L 10^3/uL
(1.2-3.4)
Absolute Monos (auto) 0.8 H 10^3/uL
(0.1-0.6)
Neutrophils % 84.6 H %
(42.2-75.2)
Lymphocytes % 6.2 L %
(20.5-51.1)
BUN 26 H mg/dl
(9-20)
Glucose 139 H mg/dl
(70-99)
Total Bilirubin 1.8 H mg/dl
(0.2-1.3)
Total Protein 5.5 L g/dl
(6.3-8.2)
Albumin 3.3 L g/dl
(3.5-5.0)
04/26/24 12:42
04/26/24 12:42
Vital Signs
Initial and Last Documented VS:
Initial Vital Signs
Temp Pulse Resp Pulse Ox
98.3 F 101 27 73
04/26/24 12:35 04/26/24 12:35 04/26/24 12:35 04/26/24 12:35
Last Documented Vital Signs
Temp Pulse Resp BP Pulse Ox
98.3 F 94 30 101/70 88
04/26/24 12:35 04/26/24 14:45 04/26/24 12:44 04/26/24 14:31 04/26/24 14:45
MDM/Problems Addressed
Differential Diagnosis Includes:
CHF, pneumonia, exacerbation of interstitial lung disease
MDM/Problems Addressed:
Patient presents with significant shortness of breath above his baseline. His oxygen mask came off while he was sleeping and so he had a significant amount of time without supplemental oxygen. He believes this is the reason for the exacerbation.
No fever. Patient has a chronic cough which has had some blood tinge streaks to it no anali mopped assist. He also has a history of CHF. His weight is up 7 kg or so from discharge only a month ago. His BNP is elevated. I suspect he is having
increased shortness of breath at least in part to CHF.
*Pulse Oximetry
Patient hypoxic: no
*EKG
Interpreted by ED Provider?: Yes
Heart Rate: 100
Rate: normal
Rhythm: sinus
[place]: left axis deviation
QRS Pattern: left vent hypertrophy
Ischemia: non-specific ST changes
*Power Shovel Engineer Interpretation
Rate: normal
Interpretation: normal
Rhythm: sinus
*Critical Care Note
Total Time (30-74mins, 75-104mins- exclusive of procedures): Not Applicable
ED Attending Note
-
Portions of this chart may have been created with voice recognition software.� Occasional wrong word or��sound alike� substitutions may have occurred due to the inherent limitations of voice recognition software.
Discharge Plan
Departure
Patient Disposition: Admit
Date of Disposition: 04/26/24
Time of Disposition: 14:06
Admit to: Med/Surg
Presentation/result/management discussed w/ accepting MD/DO: Hospitalist
Condition: Fair
Discharge Problem:
Interstitial lung disease, CHF (congestive heart failure), Hypoxia, Anemia
Prescriptions:
No Action
finasteride 5 MG tablet
5 mg PO HS
simvastatin 10 MG tablet
10 mg PO HS
dofetilide 250 mcg Capsule
250 mcg PO Q12 30 Days Qty: 60 0RF
Eliquis 5 mg Tablet
5 mg PO BID Qty: 0 0RF
dapsone 25 mg Tablet
50 mg PO DAILY
pantoprazole [Protonix] 40 mg tablet,delayed release (DR/EC)
40 mg PO DAILY Qty: 30 0RF
metoprolol succinate 25 mg tablet extended release 24 hr
25 mg PO DAILY 30 Days Qty: 30 0RF
furosemide [Lasix] 20 mg Tablet
20 mg PO SUMOTUTHFR
Afrin (oxymetazoline) 0.05 % Mist
1 spray INTRANASAL DAILYPRN PRN (Reason: dryness)
Nasogel 0.9 % [place] Gel
1 applic INTRANASAL BIDPRN PRN (Reason: nose bleeds)
prednisone 10 mg tablet
20 mg PO DAILY
Referrals:
Brant Kruse MD [Family Provider] -
Interventions
Interventions:
*Risk Screen - Suicide Last Done: 04/26/24 12:35
*General Assessment Last Done: 04/26/24 12:35
*Neglect/Abuse Screening Last Done: 04/26/24 12:35
*ED COVID-19 Vaccine History Last Done: 04/26/24 12:45
ED- Cardiac Assessment Last Done: 04/26/24 12:35
ED- Pulmonary Assessment Last Done: 04/26/24 12:35
Discharge Date and Time
Print Language: AZERI
[2024-04-26 12:53] LABS: % Basophils 0.3 % (0-2); % Eosinophils 0.2 % (0-6); % Immature Granulocytes 0.5 % (0-0.5); % Lymphocytes 6.2 % (20.5-51.1); % Monocytes 8.2 % (1.7-9.3); % Neutrophils 84.6 % (42.2-75.2); Absolute Immature Granulocytes 0.1 10^3/uL (0-0.05); Absolute Lymphocytes 0.6 10^3/uL (1.2-3.4); Absolute Monocytes 0.8 10^3/uL (0.1-0.6); Absolute Neutrophils 8.5 10^3/uL (1.4-6.5); Hematocrit 29.1 % (39.0-52.0); Mean Corp Hgb Conc. 30.9 g/dL (33.0-37.0); Mean Corpuscular Hgb 31.8 pg (27.0-31.0); Mean Corpuscular Volume 102.8 fL (80.0-94.0); Mean Platelet Volume 9.5 fL (7.4-10.4); Nucleated Red Blood Cells % 0 % (-); Platelet Count 235 10^3/uL (130-400); Red Blood Cell Count 2.83 10^6/uL (4.70-6.10); Red Cell Dist. Width 16.6 % (11.5-14.5); White Blood Cell Count 10.1 10^3/uL (4.8-10.8)
[2024-04-26 13:06] LABS: ALT (SGPT) 29 U/L (0-50); AST (SGOT) 42 U/L (17-59); Albumin 3.3 g/dl (3.5-5.0); Alkaline Phosphatase 86 U/L (38-126); Blood Urea Nitrogen 26 mg/dl (9-20); Calcium 8.5 mg/dl (8.4-10.2); Carbon Dioxide 29 mmol/L (22-30); Chloride 105 mmol/L (98-107); Estimated Creatinine Clearance 45 ml/min; Glucose 139 mg/dl (70-99); Potassium 4.3 mmol/L (3.5-5.1); Sodium 137 mmol/L (135-145); Total Bilirubin 1.8 mg/dl (0.2-1.3); Total Protein 5.5 g/dl (6.3-8.2)
[2024-04-26 13:22] LABS: COVID-19 Antigen Negative (Negative)
[2024-04-26 13:31] LABS: NT-proBNP 2590 pg/ml
--- NOTE | 2024-04-26 14:12 | HPS.HSE ---
Family Physician
-
Family Physician: Bratn Kruse
Chief Complaint
-
Low Oxygen Level
History of Present Illness
Patient is an 88 y/o male past medical history of chronic hypoxia on 6L via nasal cannula at baseline, chronic heart failure, interstitial lung disease, paroxysmal atrial fibrillation, chronic kidney disease and metastatic urothelial cell cancer who
presents with worsening hypoxia. Patient reports the past 24 hours he had to increase his oxygen up to 10L, but then this morning he was unable to get his oxygen level above 78%. He reports cough that is productive of sputum that over the past few
days has been streaked with bright red blood. He reports increased lower extremity edema as well as some weight gain over the past month. He denies fever, sweats or chills. He denies chest pain.
Medical History
Past Medical History
Past Medical History: Reports Other
Additional Past Medical History:
Chronic Hypoxemic Respiratory Failure - Multifactorial
Interstitial Lung Disease
Chronic HFpEF
Paroxysmal Atrial Fibrillation
Valvular Heart Disease
CKD III
Metastatic Urothelial Cell Cancer
Nephrolithiasis
BPH
Past Surgical History: Reports Other
Additional Past Surgical History:
Atrial Valve Repair
DCCV
Multiple Ablations
Loop Recorder
Left Ureterectomy
Multiple TURBT
Hernia Repair
Port Placement
Social History
Tobacco: Non-smoker
Alcohol: None
Drug: None
Family History
Family History: Not pertinent
Allergies / Home Medications
Allergies reflects when Allergies were last updated in [employer] [facility] [employer] [facility].
Home Medications with original date entered in [employer] [facility]
Allergy/Medication List:
Allergies
Allergy/AdvReac Type Severity Reaction Status Date / Time
No Known Allergies Allergy Verified 03/14/24 09:38
Home Medications
finasteride 5 mg tablet 5 mg PO HS prostate 05/25/10
simvastatin 10 mg tablet 10 mg PO HS High cholesterol 09/04/19
apixaban 5 mg tablet (Eliquis) 5 mg PO BID Blood Clot Prevention/Tx #0 tabs 01/26/24
dofetilide 250 mcg capsule 250 mcg PO Q12 Arrhythmia 30 days #60 caps 01/26/24
dapsone 25 mg tablet 50 mg PO DAILY Infection 02/17/24
pantoprazole 40 mg tablet,delayed release (Protonix) 40 mg PO DAILY #30 tabs 03/17/24
metoprolol succinate 25 mg tablet,extended release 24 hr 25 mg PO DAILY Arrhythmia 30 days #30 tabs 03/23/24
furosemide 20 mg tablet (Lasix) 20 mg PO SUMOTUTHFR 04/26/24
oxymetazoline 0.05 % nasal mist (Afrin (oxymetazoline)) 1 spray intranasal DAILYPRN PRN dryness 04/26/24
prednisone 10 mg tablet 20 mg PO DAILY 04/26/24
sod chloride-sod bicarb-hyaluronate sod-aloe 0.9 % nasal spray gel (Nasogel) 1 applic intranasal BIDPRN PRN nose bleeds 04/26/24
Review of Systems
-
A 12 point ROS was completed and negative except as noted: Yes
Constitutional: Denies Fever
Respiratory: Reports See HPI
Cardiac: Denies Chest Pain or Palpitations
Physical Exam
Vital Signs
Vital Signs
Temp Pulse Resp BP Pulse Ox
98.3 F 98 30 103/63 86
04/26/24 12:35 04/26/24 13:30 04/26/24 12:44 04/26/24 13:00 04/26/24 13:30
Physical Exam
General: Comfortable and Conversant
HEENT: Anicteric, Moist mucous membranes and Oxygen (Mid-Flow via Nasal Cannula)
Respiratory: Rales (Diffuse) and Non Labored Respirations
Cardiac: S1/S2, Regular Rhythm and Murmur
GI: Soft and Non Tender
Rectal: Deferred by Provider
Musculoskeletal: No Clubbing, No Cyanosis and Other (+2 pitting edema bilateral lower extremities)
Skin: Warm and Dry
Neuro: Awake, Alert, Oriented and Nonfocal/grossly intact
Psych: Calm
Laboratory Results
-
04/26/24 12:42
04/26/24 12:42
Laboratory Results
Total Bilirubin 1.8 mg/dl (0.2-1.3) H 04/26/24 12:42
AST 42 U/L (17-59) 04/26/24 12:42
ALT 29 U/L (0-50) 04/26/24 12:42
Alkaline Phosphatase 86 U/L (38-126) 04/26/24 12:42
Data Reviewed
-
Diagnostic Radiology: Report Reviewed by me
Lab Data: Labs Reviewed by me
Impression/Plan
-
Acute on Chronic Hypoxic Respiratory Failure
-Appears to be more related to heart failure
-CXR read as possible pneumonia
-Check Procalcitonin and Chest CT
-Hold on antibiotics for now
-Consult Pulmonary
Acute on Chronic HFpEF
-Echo Jan 2024: Normal left ventricular size and function with EF 59%. Mild concentric LVH. Stage III diastolic dysfunction.
-Consult Cardiology
-Continue Lasix 40mg IV Daily
-Monitor Is&Os and Daily Weights
Paroxysmal Atrial Fibrillation
-Continue Eliquis for anticoagulation
-Continue Tikosyn and Metoprolol for rate/rhythm control
Interstitial Lung Disease
-Continue Prednisone as prior to admission
CKD Stage III
-Monitor creatinine with diuretic usage
Metastatic Urothelial Cell Cancer with Known Lung Mets
-Await CT scan result
-Continue Dapsone as prior to admission
BPH
-Continue
DVT proph: Eliquis
Code Status: Full Code
[2024-04-26] MEDS: LASIX 40 MG IV ×2 (14:31→21:55)
--- NOTE | 2024-04-26 14:56 | W.PN.UPDATE ---
Update Note
Progress Note Update
This is an addendum to the H&P written by Patience Jones on 04/26/2024.� Patient seen and examined independently with PA.
88-year-old male past medical history of paroxysmal atrial fibrillation on Eliquis, CKD 3, interstitial lung disease on 6 L oxygen baseline, HFpEF, aortic valve replacement 2007, bladder cancer status post robotic nephro ureterectomy with new
bladder tumor status post resection metastases to lung, BPH, hyperlipidemia, presenting with shortness of breath and lower extremity swelling.� With mild�hemoptysis over the past week.
Chest x-ray shows bilateral interstitial and alveolar pulmonary opacities increased compared to prior chest x-ray jesting pneumonia or less likely pulmonary edema superimposed upon chronic fibrosis.
Labs show stable anemia with hemoglobin of 9.� Cardiac BNP of 2600.
Presentation concerning for acute CHF exacerbation versus less likely pneumonia and pulmonary fibrosis flare.
40 IV Lasix given, continue daily.�
Check COVID and influenza.� Pro-Bob pending.� CT chest pending.� Pulmonary consulted.� Cardiology consulted.
--- NOTE | 2024-04-26 16:07 | CON.CAR ---
Consultation
Consultation Request
Date/Time Consultation Requested: 04/26/24
Date/Time Consultation Performed: 04/26/24
Requesting Provider: Chantel
Performing Provider: Jennifer
Reason for Consultation: CHF
Medical History
-
Chief Complaint: Hypoxia
History of Present Illness:
88-year-old man past medical history of interstitial lung disease on 6 L home O2, heart failure with preserved ejection fraction, persistent atrial fibrillation/flutter presenting with worsening of his baseline hypoxia.
Previously admitted with dehydration and Lasix dose was modified approximately 1 month ago. Patient tells me he called our office and was told to take his Lasix 5X weekly 20 mg. Reports some worsening of his lower extremity edema over the last
several weeks as well as weight gain.
Tells me blood pressure has been marginal at home, largely running 90s/60s.
Also reporting cough over the last several days. Cough is productive and he describes strands of mucus. No fevers.
PMHx:
HFpEF
Paroxysmal afib/aflutter/atach
s/p PVI 10/08/2019
s/p PVI, posterior wall ablation, mitral annular flutter ablation 11/17/2020
s/p posterior L atrial wall ablation, right atrial tachycardia ablation 06/30/2021
Failed sotalol
Chronic amiodarone therapy from 01/2022 until 09/12/23, stopped due to amio lung toxicity
s/p Medtronic loop recorder 11/15/23
s/p complex ablation of 3 left atrial tachycardias and 2 right atrial tachycardias and SVT 01/16/2024
A-fib recurrence 01/17/2024 status post successful cardioversion in ER
s/p Left Atach and Right Atach ablations 01/16/24
Tikosyn loading 01/19/24Chronic anticoagulation with Eliquis
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
Bladder cancer s/p L robotic nephroureterectomy 09/20/2022, multiple TURBTs with new bladder tumors s/p resection
New metastatic disease to lung, started PadCev 12/19/23 weekly with Keytruda q 21 days first dose 12/19/23, also prednisone and bactrim m,w,f
h/o nephrolithiasis with stone removal and stent placement
Chronic renal insufficiency
h/o aortic valve replacement 2007
HLD
BPH
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
Past Medical History
Past Medical History: Other (as above)
Past Surgical History: Other (as above)
Social History
Tobacco: Non-Smoker
Living: With Family
Family History
Family History: Reviewed & Not Pertinent
Allergies / Home Medications
Allergy/AdvReac Type Severity Reaction Status Date / Time
No Known Allergies Allergy Verified 03/14/24 09:38
�Medication �Instructions �Recorded �Confirmed �Type
finasteride 5 mg tablet 5 mg PO HS prostate 05/25/10 04/26/24 History
simvastatin 10 mg tablet 10 mg PO HS High cholesterol 09/04/19 04/26/24 History
apixaban 5 mg tablet (Eliquis) 5 mg PO BID Blood Clot 01/26/24 04/26/24 Rx
Prevention/Tx #0 tabs
dofetilide 250 mcg capsule 250 mcg PO Q12 Arrhythmia 30 days 01/26/24 04/26/24 Rx
#60 caps
dapsone 25 mg tablet 50 mg PO DAILY Infection 02/17/24 04/26/24 History
pantoprazole 40 mg tablet,delayed 40 mg PO DAILY #30 tabs 03/17/24 04/26/24 Rx
release (Protonix)
metoprolol succinate 25 mg 25 mg PO DAILY Arrhythmia 30 days 03/23/24 04/26/24 Rx
tablet,extended release 24 hr #30 tabs
furosemide 20 mg tablet (Lasix) 20 mg PO SUMOTUTHFR 04/26/24 04/26/24 History
oxymetazoline 0.05 % nasal mist 1 spray intranasal DAILYPRN PRN 04/26/24 04/26/24 History
(Afrin (oxymetazoline)) dryness
prednisone 10 mg tablet 20 mg PO DAILY 04/26/24 04/26/24 History
sod chloride-sod 1 applic intranasal BIDPRN PRN 04/26/24 04/26/24 History
bicarb-hyaluronate sod-aloe 0.9 % nose bleeds
nasal spray gel (Nasogel)
Review of Systems
-
All other systems: Negative unless noted
Physical Exam
Vital Signs
Temp Pulse Resp BP Pulse Ox
98.3 F 95 30 98/67 89
04/26/24 12:35 04/26/24 15:45 04/26/24 12:44 04/26/24 15:40 04/26/24 15:50
Lab Results
04/26/24 12:42
04/26/24 12:42
Lxx-R-Ktdvzeiadnu Pept 2590 pg/ml 04/26/24 12:54
Physical Exam
General: Well Developed
HEENT: Normocephalic
Respiratory: Crackles and Other (On 6L NC)
Cardiac: S1/S2, Regular Rhythm and Murmur (2/6 DARIN)
GI: Soft
Musculoskeletal: Edema (2+ LE edema)
Skin: Warm and Dry
Neuro: Awake and Alert
Psych: Calm
Impression / Plan
-
PCP: Brant Kruse MD
Primary Oil Paint Shader: Dr. Tomi Ring
Primary Geriatric Physician: Dr. Holly Dixon at [place]
Impression:
Presentation with SOB and worsening hypoxia
Acute HFpEF
Paroxysmal afib/aflutter/atach
s/p PVI 10/08/2019
s/p PVI, posterior wall ablation, mitral annular flutter ablation 11/17/2020
s/p posterior L atrial wall ablation, right atrial tachycardia ablation 06/30/2021
Failed sotalol
Chronic amiodarone therapy from 01/2022 until 09/12/23, stopped due to amio lung toxicity
s/p Medtronic loop recorder 11/15/23
s/p complex ablation of 3 left atrial tachycardias and 2 right atrial tachycardias and SVT 01/16/2024
A-fib recurrence 01/17/2024 status post successful cardioversion in ER
s/p Left Atach and Right Atach ablations 01/16/24
Tikosyn loading 01/19/24Chronic anticoagulation with Eliquis
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
Bladder cancer s/p L robotic nephroureterectomy 09/20/2022, multiple TURBTs with new bladder tumors s/p resection
New metastatic disease to lung, started PadCev 12/19/23 weekly with Keytruda q 21 days first dose 12/19/23, also prednisone and bactrim m,w,f
h/o nephrolithiasis with stone removal and stent placement
Chronic renal insufficiency
h/o aortic valve replacement 2007
HLD
BPH
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
ECHO 09/05/23: EF 60 to 65%, stage III diastolic dysfunction, mild concentric LVH, dilated RV, severely dilated atria, mild to moderate MR, well-seated #23 AVR with peak/mean gradients 10/5 mmHg, moderate TR, PAP 57 mmHg
Echo 01/21/24: EF 59%, mild concentric LVH, stage III diastolic dysfunction, normal RV size and function, well-seated tissue AVR peak/mean 23/11 mmHg without aortic regurgitation, mild to moderate TR with PAP [address] 01/25/24: scattered foci of acute pneumonitis superimposed on chronic changes of interstitial lung disease, no significant pleural effusions, no pulmonary edema. Rounded focus of increased density within the lingula, similar size to previous
CT, but now having air bronchograms suggestive of a focal area of atelectasis and/or scarring rather than neoplasia
Plan:
-Patient admitted with multifactorial hypoxic respiratory insufficiency in part due to acute on chronic HFpEF, but also ILD
-Agree with IV lasix twice daily
-Standing weights
-Following Cr/electrolytes
-Wean O2 as able
-Unable to add MRA due to marginal blood pressure
-Check TTE on Sunday
-Patient with a h/o symptomatic Afib/flutter/tach and last ablation was an Atach ablation 01/16/24
-In sinus rhythm here
-Cont Tikosyn 250 mcg q 12 hours and metoprolol
-Eliquis for cardioembolic ppx
Data Reviewed
-
EKG: Tracing Personally Visualized and interpreted
Radiology: Image Personally Visualized and interpreted
CT Scan: Report Reviewed by me
Medical Tests (Nuc Med, Echo etc): Report Reviewed by me
Labs: Labs Reviewed by me
Old Records: Reviewed
[2024-04-26 16:21] LABS: Procalcitonin 0.09 ng/ml (0.0-0.25)
--- NOTE | 2024-04-26 19:40 | PTCARENOTE ---
Received pt from ED, oriented to room and unit. Pt oxygen saturation now 94% on 15L's without any activity. Desats with slightest activity. pt is on tele running nsr. Pt denies respiratory distress. pt call alexandre placed within reach, pt instructed to
ring for assistance, validates understanding. will cont to monitor.
[2024-04-26] MEDS: ELIQUIS 5 MG PO (21:55)
[2024-04-26] MEDS: LIPITOR 10 MG PO (21:56)
[2024-04-26] MEDS: PROSCAR 5 MG PO (21:56)
[2024-04-26] MEDS: TIKOSYN 250 MCG PO (21:56)
[2024-04-26] MEDS: FLUSH (NSS) 2 FLUSH IV (21:58)
[2024-04-27] VITALS (7 sets, daily range): BP systolic 86–104; BP diastolic 56–72; BMI 25.4
--- NOTE | 2024-04-27 06:33 | PTCARENOTE ---
Pt's heart rate while lying in bed on his phone went into SVT 160's, pt. asymptomatic, strip noted in chart.
[2024-04-27 07:47] LABS: Reticulocyte Count 6.2 % (0.4-2.8)
[2024-04-27 08:19] LABS: Blood Urea Nitrogen 25 mg/dl (9-20); Calcium 8.4 mg/dl (8.4-10.2); Carbon Dioxide 33 mmol/L (22-30); Chloride 99 mmol/L (98-107); Estimated Creatinine Clearance 42 ml/min; Glucose 103 mg/dl (70-99); LDH 586 U/L (120-246); Magnesium 1.9 mg/dl (1.6-2.3); Potassium 3.6 mmol/L (3.5-5.1); Sodium 136 mmol/L (135-145); eGFR 48.95
[2024-04-27 08:27] LABS: TSH Reflex To Free T4 2.29 uIU/ml (0.47-4.68)
[2024-04-27 08:28] LABS: Total Iron Binding Capacity 247 ug/dl (261-462)
[2024-04-27 08:40] LABS: Iron < 20 ug/dl (49-181)
--- NOTE | 2024-04-27 08:47 | W.PN.HOSP.TC ---
Today's Communication/Plan
-
See PN
Assessment / Plan
Assessment / Plan
88yo M with PMHX of ILD with chronic respiratory failure on up to 10L home O2, Afib on ELiquis, s/p bioprosthetic valve, bladder cancer s/p resection with metastatic disease BPH, GERD and HLD came with worsening hypoxia, managed for CHF
exacerbation, superiposed on possible ILD and cannot exclude CAP. Hemoptysis and increased cough at home. Also was titrating down Prednisone at home after recent hospitalization, currently on 20mg
A/P:
#Acute on chronic hypoxic respiratory failure 2/2 HFpEF exacerbation
#Cannot exclude ILD flare
#Cannot exclude multifocal pneumonia with reactive mediastinal lympadenopathy
Taper steroids, bronchodilators, mucolythics, antitussives
Pulm consult
Rocephin/Doxy
Lasix, follow daily weights and electrolytes
Echo
Card consult
#JUAN on CKD stage 3a
baseline 1.0-1.1
follow Cr while on diuresis
#Afib, paroxysmal
#metastatic bladder CA previously on Keytruda, now on no chemo
#HLD
cont home meds
#Anemia, macrocytic with elevated retics
#Hemoptysis (minimal, streaks of blood with cough)
Elevated LDH
follow CBC
check haptoglobin and Croombs
Anemia w/u
check stool FOBT - RN informed
DVT ppx on eliquis
Full code
I have spent at least 59min reviewing chart, test results, communication with consultants and direct patient care
Anticipated Discharge: > 48 hours
Subjective/Interval History
-
Date of Service: April 27, 2024
Objective Data
-
Labs:
Laboratory Results
04/27/24
05:53
Sodium 136
Potassium 3.6
Chloride 99
Carbon Dioxide 33 H
BUN 25 H
Creatinine 1.4 H
Glucose 103 H
Calcium 8.4
Vital Signs:
Vital Signs
Temp Pulse Resp BP Pulse Ox
99.0 F 93 20 100/72 94
04/27/24 03:58 04/27/24 03:58 04/27/24 03:58 04/27/24 03:58 04/27/24 03:58
I&O
04/26/24 04/27/24 04/28/24
06:59 06:59 06:59
Intake Total 960 / 960
Output Total 3750 / 3750
Balance -2790 / -2790
Review of Systems
-
History Source: Patient
All other systems: Reviewed and negative
Physical Exam
-
General: No Apparent Distress
HEENT: Normocephalic
Respiratory: Crackles (b/l)
Cardiac: Irregular Rhythm
GI: Soft, Nontender and Nondistended
Musculoskeletal: No Clubbing, No Cyanosis, Edema, Right Lower Extrem and Edema, Left Lower Extrem
Skin: Warm
Neuro: Awake, Alert, Oriented and AO x 3
Psych: Calm
[2024-04-27 09:03] LABS: Folate 8.2 ng/ml (2.76-20); Vitamin B12 582 pg/ml (239-931)
[2024-04-27] MEDS: DAPSONE 50 MG PO ×2 (10:02→21:12)
[2024-04-27] MEDS: ELIQUIS 5 MG PO ×2 (10:03→19:59)
[2024-04-27] MEDS: MUCINEX 600 MG PO ×2 (10:03→19:59)
[2024-04-27] MEDS: PROTONIX 40 MG PO (10:03)
[2024-04-27] MEDS: VIBRAMYCIN 100 MG PO ×2 (10:03→20:00)
[2024-04-27] MEDS: TIKOSYN 250 MCG PO ×2 (10:03→20:00)
[2024-04-27] MEDS: TOPROL XL PO ×2 (10:04→10:14)
[2024-04-27] MEDS: LASIX 40 MG IV ×2 (10:04→19:59)
[2024-04-27] MEDS: ROCEPHIN 1000 MG IV (10:04)
[2024-04-27] MEDS: STERILE WATER FOR INJECTION 10 ML IV (10:04)
[2024-04-27] MEDS: SOLU-MEDROL PF 40 MG IV ×3 (10:05→23:06)
--- NOTE | 2024-04-27 10:56 | CM ---
internal controls manager reviewed patient's chart and met with patient and patient states that he lives with his spouse, Shanice in a 2 story home with 3 steps to enter, and elevator to 2nd floor, patient requires assist with adl's and uses a walker with
ambulation, patient has been on 6 liters of oxygen at home, patient has two concentrators at 10 liters each, patient receives his oxygen from [facility].
PCP Brant Kruse
Pharmacy [facility].
Plan; Home at discharge may benefit from VN services in home.
--- NOTE | 2024-04-27 11:22 | W.PN.CARDCBS ---
Today's Communication / Plan
-
IV Lasix today, hopefully transition to oral in the next 24 to 48 hours
Wean oxygen as able
Impression / Plan
-
PCP: Brant Kruse MD
Primary Nurse Paralegal: Dr. Tomi Ring
Primary Pest Controller Assistant: Dr. Holly Dixon at [facility]
Impression:
Presentation with SOB and worsening hypoxia
Acute HFpEF
Paroxysmal afib/aflutter/atach
s/p PVI 10/08/2019
s/p PVI, posterior wall ablation, mitral annular flutter ablation 11/17/2020
s/p posterior L atrial wall ablation, right atrial tachycardia ablation 06/30/2021
Failed sotalol
Chronic amiodarone therapy from 01/2022 until 09/12/23, stopped due to amio lung toxicity
s/p Medtronic loop recorder 11/15/23
s/p complex ablation of 3 left atrial tachycardias and 2 right atrial tachycardias and SVT 01/16/2024
A-fib recurrence 01/17/2024 status post successful cardioversion in ER
s/p Left Atach and Right Atach ablations 01/16/24
Tikosyn loading 01/19/24Chronic anticoagulation with Eliquis
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
Bladder cancer s/p L robotic nephroureterectomy 09/20/2022, multiple TURBTs with new bladder tumors s/p resection
New metastatic disease to lung, started PadCev 12/19/23 weekly with Keytruda q 21 days first dose 12/19/23, also prednisone and bactrim m,w,f
h/o nephrolithiasis with stone removal and stent placement
Chronic renal insufficiency
h/o aortic valve replacement 2007
HLD
BPH
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
ECHO 09/05/23: EF 60 to 65%, stage III diastolic dysfunction, mild concentric LVH, dilated RV, severely dilated atria, mild to moderate MR, well-seated #23 AVR with peak/mean gradients 10/5 mmHg, moderate TR, PAP 57 mmHg
Echo 01/21/24: EF 59%, mild concentric LVH, stage III diastolic dysfunction, normal RV size and function, well-seated tissue AVR peak/mean 23/11 mmHg without aortic regurgitation, mild to moderate TR with PAP [address] 01/25/24: scattered foci of acute pneumonitis superimposed on chronic changes of interstitial lung disease, no significant pleural effusions, no pulmonary edema. Rounded focus of increased density within the lingula, similar size to previous
CT, but now having air bronchograms suggestive of a focal area of atelectasis and/or scarring rather than neoplasia
Plan:
-Patient admitted with multifactorial hypoxic respiratory insufficiency in part due to acute on chronic HFpEF, but also ILD
-Agree with IV lasix once daily, thus far has had robust response in UOP, hopefully transition back to PO in 24-48hrs
-Standing weights
-Following Cr/electrolytes
-Wean O2 as able
-Check TTE on Sunday
-Patient with a h/o symptomatic Afib/flutter/tach and last ablation was an Atach ablation 01/16/24
-In sinus rhythm here
-Cont Tikosyn 250 mcg q 12 hours
-Metoprolol as BP tolerates
-Eliquis for cardioembolic ppx
Progress Note - Nurse Paralegal
Subjective
Date of Service: April 27, 2024
No acute overnight events. Patient tells me he had strong response to Lasix. Edema is improved today by his report.
Objective
Labs:
04/26/24 12:42
04/27/24 05:53
Labs
Hgb 9.0 g/dL (13.0-18.0) L 04/26/24 12:42
Hct 29.1 % (39.0-52.0) L 04/26/24 12:42
Plt Count 235 10^3/uL (130-400) 04/26/24 12:42
Sodium 136 mmol/L (135-145) 04/27/24 05:53
Potassium 3.6 mmol/L (3.5-5.1) 04/27/24 05:53
BUN 25 mg/dl (9-20) H 04/27/24 05:53
Creatinine 1.4 mg/dL (0.7-1.3) H 04/27/24 05:53
Glucose 103 mg/dl (70-99) H 04/27/24 05:53
Vital Signs and I&O:
Vital Signs
Temp Pulse Resp BP Pulse Ox
98.8 F 92 24 92
04/27/24 07:00 04/27/24 07:00 04/27/24 07:00 04/27/24 07:00 04/27/24 07:00
Vital Signs
Temp Pulse Resp BP Pulse Ox
98.8 F 92 24 92
04/27/24 07:00 04/27/24 07:00 04/27/24 07:00 04/27/24 07:00 04/27/24 07:00
Intake & Output
04/25/24 04/26/24 04/27/24 04/28/24
06:59 06:59 06:59 06:59
Intake Total 960 / 960
Output Total 3750 / 3750
Balance -2790 / -2790
Physical Exam
Physical Exam
Gen: NAD, AAOx3
HEENT: NC/AT, sclera anicteric
Neck: No JVD
CV: RRR, NL s1/s2
Lungs: No increased work of breathing on mid flow O2
Abd: S/ND
Ext: Trace LE edema
Skin: Warm, dry
Neuro: Non-focal
[2024-04-27] MEDS: DUONEB 3 ML INH ×3 (11:50→20:19)
--- NOTE | 2024-04-27 15:48 | PTCARENOTE ---
The patient has ST/SVT short period noted couple times on tele, MD is aware, no new order.
--- NOTE | 2024-04-27 17:04 | CON.PUL ---
Consultation
Consultation Request
Date/Time Consultation Requested: 04/27/2024
Date/Time Consultation Performed: 04/27/2024
Requesting Provider: Dr. Hidalgo
Performing Provider: Dr. Josemanuel Samuel
Reason for Consultation: Acute on chronic hypoxemic respiratory failure
Medical History
-
Chief Complaint: Shortness of breath
History of Present Illness:
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
pulmonary metastatic disease as well as underlying interstitial lung disease possibly drug-induced. Follows with Dr. Faustin.
Chronically on oxygen therapy 6 L nasal cannula. Presented to the emergency room complaining of 24 hours of increased oxygen requirements up to 10 L, despite maximal flow at home was not able to maintain pulse ox above 78%. Reported minimal
hemoptysis at home.
Reports increased lower extremity edema and increased weight over the last several weeks.
Denies phlegm production, fevers, chills.
He has been compliant with his prednisone at 20 mg and with PCP prophylaxis.
-
Underwent CT chest 04/26/2024: Showed bilateral interstitial and airspace opacities increased compared to CAT scan from January 2024. Small bilateral pleural effusions. Superimposed on underlying pulmonary fibrosis. Possible pulmonary edema.
Past Medical History
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
discharged from the hospital after being treated for CHF preserved EF, amiodaron)
Past Surgical History: None (Atrial valve repair. Multiple ablations. Left ureterectomy. Hernia repair. Port placement.)
Social History
Tobacco: Former Smoker
Alcohol: None
Drug: None
Living: With Family
Occupational Exposures: No known asbestos exposure
Environmental Exposures: No known tuberculosis exposure
Family History
Family History: Reviewed & Not Pertinent
Allergies / Home Medications
Allergies
Allergy/AdvReac Type Severity Reaction Status Date / Time
No Known Allergies Allergy Verified 03/14/24 09:38
Home Medications
�Medication �Instructions �Recorded �Confirmed �Last Taken �Type
finasteride 5 mg tablet 5 mg PO HS prostate 05/25/10 04/26/24 04/25/24 History
simvastatin 10 mg tablet 10 mg PO HS High cholesterol 09/04/19 04/26/24 04/25/24 History
apixaban 5 mg tablet (Eliquis) 5 mg PO BID Blood Clot 01/26/24 04/26/24 04/26/24 Rx
Prevention/Tx #0 tabs
dofetilide 250 mcg capsule 250 mcg PO Q12 Arrhythmia 30 days 01/26/24 04/26/24 04/26/24 Rx
#60 caps
dapsone 25 mg tablet 50 mg PO DAILY Infection 02/17/24 04/26/24 04/26/24 History
pantoprazole 40 mg tablet,delayed 40 mg PO DAILY #30 tabs 03/17/24 04/26/24 04/26/24 Rx
release (Protonix)
metoprolol succinate 25 mg 25 mg PO DAILY Arrhythmia 30 days 03/23/24 04/26/24 04/26/24 Rx
tablet,extended release 24 hr #30 tabs
furosemide 20 mg tablet (Lasix) 20 mg PO SUMOTUTHFR Fluid 04/26/24 04/26/24 04/25/24 History
Retention/Swelling
oxymetazoline 0.05 % nasal mist 1 spray intranasal DAILYPRN PRN 04/26/24 04/26/24 Unknown History
(Afrin (oxymetazoline)) dryness
prednisone 10 mg tablet 20 mg PO DAILY Anti-Inflammatory 04/26/24 04/26/24 04/26/24 History
sod chloride-sod 1 applic intranasal BIDPRN PRN 04/26/24 04/26/24 Unknown History
bicarb-hyaluronate sod-aloe 0.9 % nose bleeds
nasal spray gel (Nasogel)
Review of Systems
Vitals / Labs / Diagnostic Testing
Vital Signs
Temp Pulse Resp BP Pulse Ox
97.6 F 98 20 103/69 95
04/27/24 15:00 04/27/24 15:59 04/27/24 15:59 04/27/24 15:00 04/27/24 15:59
Lab Data
04/26/24 12:42
04/27/24 05:53
Microbiology
04/26/24 17:45 Nasal Swab Influenza Types A & B (MIO) - Final
Negative for Influenza A & B, NAAT
Negative results must be combined with clinical observations
and patient history.
Nucleic Acid Amplification test (NAAT)performed on the
[employer] platform.
Diagnostic Testing:
Assessment
-
88-year-old man with complicated past medical history noted. Admitted with 24 hours of worsening shortness of breath and hypoxemia. Required up to 10 L of supplemental oxygen at home. Not improving night.
CT scan showed bilateral pleural effusions, increased interstitial markings on top of underlying pulmonary fibrosis/ILD-increased proBNP suggestive of heart failure.
Acute on chronic hypoxemic respiratory failure requiring up to 10 L usually on 6 L-acute on chronic heart failure with preserved ejection fraction
CT chest:Bilateral interstitial and airspace opacities appear increased compared to the chest CT from 01/25/2024. A component of pulmonary edema is suspected given the presence of small bilateral pleural effusions. Findings are superimposed upon
chronic fibrosis (UIP interstitial lung disease). Pneumonia is not definitively excluded and clinical correlation is recommended.
Mediastinal lymphadenopathy, favored to be reactive.
proBNP 2590. Highest historically.
Conditions present prior to admission:
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 Faustin.
Hx of metastatic urothelial carcinoma with mets to [facility]
Recent dosed on hospitalization 02/18/2024-interstitial lung disease flare, infection, CHF-discharged and admitted [facility] for couple days-additional antibiotics
Urothelial cell carcinoma with metastatic disease to the lungs status post bronchoscopy-[facility] October 2023 Elis on immunotherapy (not currently on Keytruda given recent pneumonitis)
CHF preserved EF. Chronic anemia
JUAN
Diastolic CHF.
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
PAF/ablation x 3/failed sotalol/cardioversion.
Chronic kidney disease.
Nephrolithiasis.
BPH.
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 Left ureterectomy. Hernia repair. Port placement.
Assessment and plan:
Suspect clinical picture consistent with acute on chronic heart failure with preserved ejection fraction on top of underlying interstitial lung disease.
Currently without leukocytosis or fevers.
-
Not unreasonable to keep antibiotics for now as it is difficult to rule out based on prior underlying pulmonary disease: Currently on ceftriaxone/doxycycline -patient is immunosuppressed on long-term prednisone.
Procalcitonin not elevated
Afebrile
No leukocytosis
Influenza negative
COVID-negative
Patient is on prednisone long-term: PJP a possibility but I suspect less likely. Will continue to watch closely.
If there is no improvement with diuretics may need to consider bronchoscopy etc.
Continue dapsone
If there is rapid improvement consider discontinuation of antibiotics.
Patient place of patient placed on IV corticosteroids 40 mg IV every 8 hours [id number] rapidly taper off in the next 24 to 48 hours to baseline if he rapidly improved with diuresis. Will be an ongoing discussion
Check a CRP
-
Bronchodilators for secretion clearance. Not bronchospastic.
-
Cardiology correspondence reviewed
Continue diuresis IV.
Follow renal function and electrolytes
-
DVT prophylaxis-patient on antibiotics.
-
Will follow.
Outpatient follow-up with Dr. Faustin after discharge.
[2024-04-27] MEDS: OCEAN, SALINE MIST 2 SPRAYS NASAL (20:17)
[2024-04-27] MEDS: LIPITOR 10 MG PO (21:12)
[2024-04-27] MEDS: PROSCAR 5 MG PO (21:12)
--- NOTE | 2024-04-27 23:32 | PTCARENOTE ---
Pt very concerned about his heart rate throughout shift. Pt ambulatred to the bathroom with assist using the walker and had a BM. After returning to the bed, pt's heart rate showed a burst of SVT in the 190's per the monitor. Pt stated feeling his
heart racing, but otherwise asymptomatic. HR returned back to 90-100's shortly after the burst. Encouraged pt to use relaxation techniques to lower heart rate and increase POX. Pt sleeping at present. Will continue to monitor.
[2024-04-28] VITALS (8 sets, daily range): BP systolic 86–110; BP diastolic 57–75; BMI 25.0
[2024-04-28 06:05] LABS: % Immature Granulocytes 0.8 % (0-0.5); % Lymphocytes 5.4 % (20.5-51.1); % Monocytes 5.2 % (1.7-9.3); % Neutrophils 88.6 % (42.2-75.2); Absolute Immature Granulocytes 0.1 10^3/uL (0-0.05); Absolute Lymphocytes 0.5 10^3/uL (1.2-3.4); Absolute Monocytes 0.5 10^3/uL (0.1-0.6); Absolute Neutrophils 7.7 10^3/uL (1.4-6.5); Hemoglobin 8.9 g/dL (13.0-18.0); Mean Corp Hgb Conc. 30.7 g/dL (33.0-37.0); Mean Corpuscular Hgb 30.9 pg (27.0-31.0); Mean Corpuscular Volume 100.7 fL (80.0-94.0); Mean Platelet Volume 9.9 fL (7.4-10.4); Nucleated Red Blood Cells % 0 % (-); Platelet Count 235 10^3/uL (130-400); Red Blood Cell Count 2.88 10^6/uL (4.70-6.10); Red Cell Dist. Width 15.9 % (11.5-14.5); White Blood Cell Count 8.7 10^3/uL (4.8-10.8)
[2024-04-28 06:46] LABS: ALT (SGPT) 29 U/L (0-50); AST (SGOT) 28 U/L (17-59); Albumin 3.5 g/dl (3.5-5.0); Alkaline Phosphatase 86 U/L (38-126); Blood Urea Nitrogen 35 mg/dl (9-20); Calcium 8.7 mg/dl (8.4-10.2); Carbon Dioxide 32 mmol/L (22-30); Chloride 95 mmol/L (98-107); Estimated Creatinine Clearance 42 ml/min; Glucose 179 mg/dl (70-99); Sodium 136 mmol/L (135-145); Total Bilirubin 1.6 mg/dl (0.2-1.3); Total Protein 5.6 g/dl (6.3-8.2); eGFR 48.95
[2024-04-28] MEDS: DUONEB 3 ML INH ×4 (07:28→20:07)
[2024-04-28] MEDS: SOLU-MEDROL PF 40 MG IV ×3 (08:23→23:03)
[2024-04-28] MEDS: ROCEPHIN 1000 MG IV (08:23)
[2024-04-28] MEDS: LASIX 40 MG IV ×2 (08:23→15:41)
[2024-04-28] MEDS: TOPROL XL 25 MG PO (08:24)
[2024-04-28] MEDS: DAPSONE 50 MG PO ×2 (08:24→20:15)
[2024-04-28] MEDS: ELIQUIS 5 MG PO ×2 (08:25→20:15)
[2024-04-28] MEDS: VIBRAMYCIN 100 MG PO ×2 (08:25→20:15)
[2024-04-28] MEDS: TIKOSYN 250 MCG PO ×2 (08:25→20:15)
[2024-04-28] MEDS: MUCINEX 600 MG PO ×2 (08:25→20:15)
[2024-04-28] MEDS: STERILE WATER FOR INJECTION 10 ML IV (08:26)
[2024-04-28] MEDS: PROTONIX 40 MG PO (08:26)
--- NOTE | 2024-04-28 08:30 | VNURNOTE ---
Chart reviewed. [facility], PT. Will continue to follow hospital course and DC plans.
--- NOTE | 2024-04-28 08:37 | W.PN.HOSP.TC ---
Today's Communication/Plan
-
see bold
Assessment / Plan
Assessment / Plan
88yo M with PMHX of ILD with chronic respiratory failure on up to 10L home O2, Afib on ELiquis, s/p bioprosthetic valve, bladder cancer s/p resection with metastatic disease BPH, GERD and HLD came with worsening hypoxia, managed for CHF
exacerbation, superiposed on possible ILD and cannot exclude CAP. Hemoptysis and increased cough at home. Also was titrating down Prednisone at home after recent hospitalization, currently on 20mg
A/P:
#Acute on chronic hypoxic respiratory failure
Currently requiring 15 L of oxygen, he wears 6 L at baseline
Multifactorial, due to his progressive ILD, CHF, and possible pneumonia
#Acute heart failure with a preserved ejection fraction
Appreciate cardiology input continue IV Lasix, trend creatinine, trend daily weights
#Acute ILD flare
Appreciate pulmonology input, continue IV steroids
#Possible multifocal pneumonia with reactive mediastinal lympadenopathy
Appreciate pulmonology input, continue Rocephin/Doxy, bronchodilators, mucolythics, antitussives
#JUAN on CKD stage 3a
Monitor
#Afib, paroxysmal
Continue Tikosyn, Eliquis
Unable to increase Toprol XL secondary to soft blood pressures
#Metastatic bladder CA previously on Keytruda, now on no chemo
#HLD
cont home meds
#Anemia, macrocytic with elevated retics
#Hemoptysis (minimal, streaks of blood with cough)
Elevated LDH, f/u haptoglobin, Kam
Consult heme
DVT ppx - eliquis
Full code
Total time spent to see the patient on the floor, examine the patient, review data and lab results, discuss treatment plan with patient, nursing staff around 51 minutes.
Physical Exam
General: Appears chronically ill, no acute distress
HEENT: Normocephalic, Atraumatic, EOMI, MMM
Respiratory: Bibasilar crackles
Cardiac: Normal S1/S2, Regular Rate and Rhythm
GI: Soft, Nontender, Nondistended, Normal Bowel Sounds
Extremities: No Clubbing, Cyanosis, or Edema
Neuro: Nonfocal/Grossly Intact
Psych: Calm, Cooperative
Derm: No Visible lesions
Anticipated Discharge: > 48 hours
Subjective/Interval History
-
Date of Service: April 28, 2024
Patient reports that his shortness of breath has improved. He continues to cough up clear sputum. No fever, no vomiting.
Objective Data
-
Labs:
Laboratory Results
04/28/24
05:05
WBC 8.7
Hgb 8.9 L
Hct 29.0 L
Plt Count 235
Sodium 136
Potassium 4.0
Chloride 95 L
Carbon Dioxide 32 H
BUN 35 H
Creatinine 1.4 H
Glucose 179 H
Calcium 8.7
Total Bilirubin 1.6 H
AST 28
ALT 29
Alkaline Phosphatase 86
Vital Signs:
Vital Signs
Temp Pulse Resp BP Pulse Ox
98.3 F 94 20 110/75 94
04/28/24 07:37 04/28/24 07:37 04/28/24 07:37 04/28/24 07:37 04/28/24 07:37
I&O
04/27/24 04/28/24 04/29/24
06:59 06:59 06:59
Intake Total 960 / 960
Output Total 3750 / 3750 2074
Balance -2790 / -279 -2074
[2024-04-28] MEDS: AFRIN NASAL SPRAY 1 SPRAYS NASAL ×2 (09:28→20:14)
--- NOTE | 2024-04-28 11:21 | W.PN.CARDCBS ---
Addendum entered and electronically signed by Guerrero Bennett MD 04/28/24 12:07:
I saw and examined the patient.
The OIL DISPENSER or PA's note was reviewed and I agree with the note.
Comment: General: Well developed, well nourished in NAD.
Neck: Supple, no JVD, HJR, carotids +2 B/L, no bruits bilaterally.
Heart: Non displaced PMI, RRR, no murmurs, No S3, S4, no rubs.
Lungs: Scattered rhonchi throughout
Extremities: No clubbing, cyanosis or edema bilaterally.
Neuro: Grossly nonfocal, awake, alert and oriented x3.
He remains severely hypoxic. Unclear how much of this is pulmonary versus CHF. Will continue IV Lasix. Episodes of A-fib on telemetry. Unable to increase beta-nelia given hypotension. Continue Tikosyn.
Original Note:
Today's Communication / Plan
-
Cont current doses of Toprol XL and Tikosyn
Intermittent hypotension preventing increased dose of Toprol XL
Cont Lasix IV
Impression / Plan
-
PCP: Brant Kruse MD
Primary Warehouse Representative: Dr. Tomi Ring
Primary Wildlife Management Professor: Dr. Holly Dixon at [facility]
Impression:
Presentation with SOB and worsening hypoxia
Acute HFpEF
Paroxysmal afib/aflutter/atach
s/p PVI 10/08/2019
s/p PVI, posterior wall ablation, mitral annular flutter ablation 11/17/2020
s/p posterior L atrial wall ablation, right atrial tachycardia ablation 06/30/2021
Failed sotalol
Chronic amiodarone therapy from 01/2022 until 09/12/23, stopped due to amio lung toxicity
s/p Medtr[employer] loop recorder 11/15/23
s/p complex ablation of 3 left atrial tachycardias and 2 right atrial tachycardias and SVT 01/16/2024
A-fib recurrence 01/17/2024 status post successful cardioversion in ER
s/p Left Atach and Right Atach ablations 01/16/24
Tikosyn loading 01/19/24
Chronic anticoagulation with Eliquis
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
Bladder cancer s/p L robotic nephroureterectomy 09/20/2022, multiple TURBTs with new bladder tumors s/p resection
New metastatic disease to lung, started PadCev 12/19/23 weekly with Keytruda q 21 days first dose 12/19/23, also prednisone and bactrim m,w,f
h/o nephrolithiasis with stone removal and stent placement
Chronic renal insufficiency
h/o aortic valve replacement 2007
HLD
BPH
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
ECHO 09/05/23: EF 60 to 65%, stage III diastolic dysfunction, mild concentric LVH, dilated RV, severely dilated atria, mild to moderate MR, well-seated #23 AVR with peak/mean gradients 10/5 mmHg, moderate TR, PAP 57 mmHg
Echo 01/21/24: EF 59%, mild concentric LVH, stage III diastolic dysfunction, normal RV size and function, well-seated tissue AVR peak/mean 23/11 mmHg without aortic regurgitation, mild to moderate TR with PAP 35 to 40 mmHg
Plan:
-Patient admitted with multifactorial hypoxic respiratory insufficiency and requiring 15 L midflow.
-Patient with ILD and possible h/o amio lung toxicity, but then later diagnosed with lung mets from primary urothelial CA and treatment with Keytruda and Padcev was started with may have increased interstitial pneumonitis.
-Patient being followed by [facility]-Medrol 40 mg IV q 8 hours ordered
-Diuresing with Lasix 40 mg IV BID. Weight is down 3 lbs overnight. Patient is below previous dry weight.
-Cre was 1.3 on admission and up to 1.4 on 04/28/24. Will follow.
-Outpatient dose of Toprol XL 25 mg daily has been continued, cannot increase dose due to intermittent hypotension.
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
-Tele reviewed by me 04/28/24 looks like SR, but HRs in the 90s. Patient with a h/o symptomatic Afib/flutter/tach and last ablation was an Atach ablation 01/16/24.
-Outpatient dose of Tikosyn 250 mcg q 12 hours has been continued. QTc was 477 ms on ECG 04/26/24. Recheck ECG in AM to assure stable QT.
-Outpatient dose of Eliquis 5 mg BID (age 88, Cre 1.4, wt 83.574) has been continued.
Progress Note - Warehouse Representative
Subjective
Date of Service: April 28, 2024
He had palpitations overnight
Objective
Labs:
04/28/24 05:05
04/28/24 05:05
Labs
Hgb 8.9 g/dL (13.0-18.0) L 04/28/24 05:05
Hct 29.0 % (39.0-52.0) L 04/28/24 05:05
Plt Count 235 10^3/uL (130-400) 04/28/24 05:05
Sodium 136 mmol/L (135-145) 04/28/24 05:05
Potassium 4.0 mmol/L (3.5-5.1) 04/28/24 05:05
BUN 35 mg/dl (9-20) H 04/28/24 05:05
Creatinine 1.4 mg/dL (0.7-1.3) H 04/28/24 05:05
Glucose 179 mg/dl (70-99) H 04/28/24 05:05
Vital Signs and I&O:
Vital Signs
Temp Pulse Resp BP Pulse Ox
97.7 F 95 20 98/66 93
04/28/24 11:13 04/28/24 11:13 04/28/24 11:13 04/28/24 11:13 04/28/24 11:13
Vital Signs
Temp Pulse Resp BP Pulse Ox
97.7 F 95 20 98/66 93
04/28/24 11:13 04/28/24 11:13 04/28/24 11:13 04/28/24 11:13 04/28/24 11:13
Intake & Output
04/26/24 04/27/24 04/28/24 04/29/24
06:59 06:59 06:59 06:59
Intake Total 960 / 960
Output Total 3750 / 3750 2074
Balance -2790 / -2790 -2074
Physical Exam
Physical Exam
GEN: AAO x3
HEENT: MMM
LUNGS: Wearing oxygen at 15 L midflow. No audible wheeze
CV: SR with frequent PVCs on tele
ABD: ND
EXT: No edema B/L LE
NEURO: Gross non-focal
SKIN: No rash
--- NOTE | 2024-04-28 11:57 | W.PN.PUL3 ---
Today's Communication / Plan
-
Remains on 14L currently, baseline use of 6L but his needs were escalating
Continue IV steroids and lasix
Can consider stopping abx due to neg PCT
We discussed the long course of improvement that may be due to his history of ILD
Encouraged OOB/PT/IS
Otherwise, slow progress is to be expected
Assessment
-
88-year-old man with complicated past medical history noted. Admitted with 24 hours of worsening shortness of breath and hypoxemia. Required up to 10 L of supplemental oxygen at home. Not improving night.
CT scan showed bilateral pleural effusions, increased interstitial markings on top of underlying pulmonary fibrosis/ILD-increased proBNP suggestive of heart failure.
Acute on chronic hypoxemic respiratory failure requiring up to 10 L usually on 6 L-acute on chronic heart failure with preserved ejection fraction
CT chest:Bilateral interstitial and airspace opacities appear increased compared to the chest CT from 01/25/2024. A component of pulmonary edema is suspected given the presence of small bilateral pleural effusions. Findings are superimposed upon
chronic fibrosis (UIP interstitial lung disease). Pneumonia is not definitively excluded and clinical correlation is recommended.
Mediastinal lymphadenopathy, favored to be reactive.
proBNP 2590. Highest historically.
Conditions present prior to admission:
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 Faustin.
Chronic hypoxemia
Maintained on 3 L/min with sleep and 2.5-3 L/min with rest/activity, recently increased to 6 L/min [id number]-ebt-[id number] including sleep.
Moderate RLD
[place] 09/26/2023--FVC: 2.63 L / 57%, TLC 66% predicted, DLCO 33%
Recent dosed on hospitalization 02/18/2024-interstitial lung disease flare, infection, CHF-discharged and admitted [facility] for couple days-additional antibiotics
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
CHF preserved EF/Diastolic CHF.
Chronic anemia
PAF/ablation x 3/failed sotalol/cardioversion.
Chronic kidney disease.
Nephrolithiasis.
BPH.
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
Left ureterectomy.
Hernia repair.
Port placement.
Plan:
Currently 92% on 14L
BL use of O2 at home up to 6L
Suspect clinical picture consistent with acute on chronic heart failure with preserved ejection fraction on top of underlying interstitial lung disease.
Currently without leukocytosis or fevers.
-
Not unreasonable to keep antibiotics for now as it is difficult to rule out based on prior underlying pulmonary disease
Currently on ceftriaxone/doxycycline -patient is immunosuppressed on long-term prednisone.
Afebrile; no leukocytosis
Procalcitonin not elevated
Influenza negative
COVID-negative
Patient is on prednisone long-term: PJP a possibility but I suspect less likely. Will continue to watch closely.
Continue dapsone
Consider stopping abx due to neg PCT
Patient place of patient placed on IV corticosteroids 40 mg IV every 8 hours [id number] rapidly taper off in the next 24 to 48 hours to baseline if he rapidly improved with diuresis.
Will be an ongoing discussion
CRP elevated
proBNP 2500, CT more c/w edema
ECHO with stage 3 DD, moderate PH (worsened from prior ECHO)
Currently on lasix IV BID
-
Bronchodilators for secretion clearance. Not bronchospastic.
-
Cardiology correspondence reviewed
Continue diuresis IV.
Follow renal function and electrolytes
-
DVT prophylaxis-patient on antibiotics.
-
Will follow.
Outpatient follow-up with Dr. Faustin after discharge.
Diagnostic Data
CT Chest 04/26/24-Bilateral interstitial and airspace opacities appear increased compared to the chest CT from 01/25/2024. A component of pulmonary edema is suspected given the presence of small bilateral pleural effusions. Findings are superimposed
upon chronic fibrosis (UIP interstitial lung disease). Pneumonia is not definitively excluded and clinical correlation is recommended. Mediastinal lymphadenopathy, favored to be reactive.
CT Chest 01/25/24- CT findings suggesting scattered foci of acute pneumonitis superimposed on chronic changes of interstitial lung disease. No significant pleural effusions are identified. These CT findings are not considered highly suggestive of a
superimposed component of pulmonary edema. Rounded focus of increased density within the lingula, similar size to previous CT, but now having air bronchograms. The visualization of air bronchograms suggested this is most likely a focal area of
atelectasis and/or scarring rather than neoplasia, but continued follow-up is advised. 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 Slight dilation of the ascending aorta superior to the graft, short axis
diameter 4.4 cm, stable from prior examination.
Chest x-ray 02/16/2021-NAD
Chest x-ray 09/08/2023-moderate CHF
Chest x-ray 09/19/2023-stable interstitial and airspace opacifications
Chest x-ray 12/08/2023-bilateral interstitial opacifications suspecting chronic interstitial lung disease
Chest x-ray 01/18/2024-left lower lobe pneumonia superimposed on chronic interstitial infiltrates
Chest x-ray 02/09-bilateral pulmonary parenchymal opacifications with some improvement
Chest x-ray 02/17/2024-bilateral parenchymal opacifications slightly progressed in the left lung and in the right lower lung possibly minimal superimposed alveolar component, at least a component of findings may be chronic
Chest x-ray 03/06/2024-findings suspicious for mild left lung base pneumonia
CT chest 05/03/2021-no significant acute abnormalities, 2 adjacent solid nodules measuring 7 mm not changed since 2019
CT abdomen-small filling defects within the left renal pelvis suspicious for upper urinary tract malignancy, lung bases subsegmental atelectasis
CT abdomen and pelvis 02/06/2023-nonobstructing right renal stone, lung bases are clear
CT abdomen and pelvis 08/06/2023-lung bases minimal bilateral pleural effusions, interstitial edema in the lung bases, post left nephrectomy, nonobstructing right nephrolithiasis
CT chest 09/12/2023-widespread prominence of pulmonary interstitium and new widespread areas of groundglass opacifications, mild mediastinal lymphadenopathy
CT chest 11/27/2023-oblong left upper lobe mass measuring 3.[address] chest 01/25/2024-scattered foci of acute pneumonitis superimposed on chronic changes of interstitial lung disease
PET scan 11/14/2023-activity seen in presumed urinary bladder/prostate defect from prior surgery likely physiologic, mild FDG uptake lesion upper lobe of the lung, minimal FDG uptake lower lobes of the lungs likely inflammatory
Echocardiogram 01/21/24-EF 59%, stage III diastolic dysfunction, well-seated number 23 mm aortic valve, PA systolic 35-40
ECHO 04/28/24- Normal left ventricular size and systolic function. No regional wall motion abnormalities are seen. LV ejection fraction is 60-65% by visual assessment. Moderate concentric left ventricular hypertrophy. Diastolic function
indeterminate. Structurally normal mitral valve. Mitral valve opens normally. Mild mitral regurgitation. Indexed LA volume is severely abnormal (> 48 mL/m2). #23 stentless freestyle aortic valve. Peak/mean gradients are 36/20 mmHg. Trace aortic
regurgitation is seen. Structurally normal tricuspid valve. Tricuspid valve opens normally. Moderate tricuspid regurgitation. Estimated pulmonary artery pressure of 65 mmHg. Assuming a right atrial pressure of 8 mmHg. Since echocardiogram January
2023, mean pressure gradient across aortic valve prosthesis is increased from 11 mmHg to 20 mmHg. PA systolic pressures increased from 35-40 mmHg to 65 mmHg.
Subjective Data
-
Date of Service:
Date of Service: April 28, 2024
Chief Complaint: Pulmonary Follow Up
Subjective:
Patient remains on 14L NC, feels SOB
Has SOB with short exertion to bathroom
Objective Data
Data Reviewed
Vital Signs / I&O / Oxygen:
Vital Signs
Temp Pulse Resp BP Pulse Ox
97.7 F 91 20 98/66 92
04/28/24 11:13 04/28/24 11:26 04/28/24 11:26 04/28/24 11:13 04/28/24 11:26
Intake and Output
04/27/24 04/28/24 04/29/24
06:59 06:59 06:59
Intake Total 960 / 960
Output Total 3750 / 3750 2074
Balance -2790 / -2790 -2074
SaO2 92
Nasal Cannula flow liters per 15
minute
Physical Exam
General: Comfortable and Other (NAD)
HEENT: Normocephalic, Anicteric and Moist Mucous Membranes
Cardiovascular: S1-S2 and Regular Rhythm
Respiratory: Crackles and Non-Labored Respirations
GI: Soft, Non Distended and Non Tender
Neurology: Awake, Alert, Oriented and No Motor Deficits
Skin: Warm and Good Color
Labs/Micro/Reports
Lab Data
04/28/24 05:05
04/28/24 05:05
Microbiology
04/26/24 17:45 Nasal Swab Influenza Types A & B (MIO) - Final
Negative for Influenza A & B, NAAT
Negative results must be combined with clinical observations
and patient history.
Nucleic Acid Amplification test (NAAT)performed on the
[employer] platform.
[2024-04-28 18:55] LABS: Haptoglobin <10 mg/dL (30-200)
[2024-04-28] MEDS: AYR SALINE NASAL GEL 1 APPLIC NASAL (20:15)
[2024-04-28] MEDS: LIPITOR 10 MG PO (21:23)
[2024-04-28] MEDS: PROSCAR 5 MG PO (21:23)
--- NOTE | 2024-04-28 21:58 | PTCARENOTE ---
At approximately 2051, pt's heart rate jumped into the 150-160's and sustained for approximately 10 min. Mindy Adkins SECOND OPERATOR made aware. B/P at that time was 96/67.. 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
had been leaning forward to get things off his bedside table. Pt did state he could feel his heart racing. Pt finally broke and heart rate back to 90-100's after 10 min. Will continue to monitor.
[2024-04-29] VITALS (7 sets, daily range): BP systolic 83–98; BP diastolic 55–69; BMI 24.9
[2024-04-29 05:29] LABS: Hemoglobin 8.5 g/dL (13.0-18.0); Mean Corp Hgb Conc. 31.5 g/dL (33.0-37.0); Mean Corpuscular Hgb 31.5 pg (27.0-31.0); Mean Platelet Volume 9.7 fL (7.4-10.4); Platelet Count 248 10^3/uL (130-400); Red Cell Dist. Width 15.9 % (11.5-14.5); White Blood Cell Count 14.6 10^3/uL (4.8-10.8)
[2024-04-29 05:52] LABS: Blood Urea Nitrogen 52 mg/dl (9-20); Calcium 8.7 mg/dl (8.4-10.2); Carbon Dioxide 32 mmol/L (22-30); Chloride 96 mmol/L (98-107); Estimated Creatinine Clearance 36 ml/min; Glucose 172 mg/dl (70-99); Potassium 3.8 mmol/L (3.5-5.1); Sodium 135 mmol/L (135-145)
--- NOTE | 2024-04-29 07:44 | W.PN.HOSP.TC ---
Today's Communication/Plan
-
see bold
Assessment / Plan
Assessment / Plan
88yo M with PMHX of ILD with chronic respiratory failure on up to 10L home O2, Afib on ELiquis, s/p bioprosthetic valve, bladder cancer s/p resection with metastatic disease BPH, GERD and HLD came with worsening hypoxia, managed for CHF
exacerbation, superiposed on possible ILD and cannot exclude CAP. Hemoptysis and increased cough at home. Also was titrating down Prednisone at home after recent hospitalization, currently on 20mg
A/P:
#Acute on chronic hypoxic respiratory failure
Currently requiring 14-15 L of oxygen, he wears 6 L at baseline
Multifactorial, due to his progressive ILD, CHF, and possible pneumonia
#Acute heart failure with a preserved ejection fraction
Appreciate cardiology input, patient's hypoxemia is due to his ILD and pneumonia
Will stop IV Lasix due to rising creatinine
#Acute ILD flare
Appreciate pulmonology input, continue IV steroids
#Possible multifocal pneumonia with reactive mediastinal lympadenopathy
Appreciate pulmonology input, continue Rocephin/Doxy, bronchodilators, mucolythics, antitussives
#JUAN on CKD stage 3a
Monitor
#Afib, paroxysmal
Continue Tikosyn, Eliquis
Unable to increase Toprol XL secondary to soft blood pressures
#Metastatic bladder CA previously on Keytruda, now on no chemo
#HLD
cont home meds
#Anemia, macrocytic with elevated retics
#Hemoptysis (minimal, streaks of blood with cough)
Elevated LDH, f/u haptoglobin, Kam
DVT ppx - eliquis
Full code
Total time spent to see the patient on the floor, examine the patient, review data and lab results, discuss treatment plan with patient, nursing staff around 50 minutes.
Physical Exam
General: Appears chronically ill, no acute distress
HEENT: Normocephalic, Atraumatic, EOMI, MMM
Respiratory: Bibasilar crackles
Cardiac: Normal S1/S2, Regular Rate and Rhythm
GI: Soft, Nontender, Nondistended, Normal Bowel Sounds
Extremities: No Clubbing, Cyanosis, or Edema
Neuro: Nonfocal/Grossly Intact
Psych: Calm, Cooperative
Derm: No Visible lesions
Anticipated Discharge: > 48 hours
Subjective/Interval History
-
Date of Service: April 29, 2024
Patient reports dyspnea with activity is unchanged from admission. His cough is worse. No fever, no vomiting.
Objective Data
-
Labs:
Laboratory Results
04/29/24
05:01
WBC 14.6 H
Hgb 8.5 L
Hct 27.0 L
Plt Count 248
Sodium 135
Potassium 3.8
Chloride 96 L
Carbon Dioxide 32 H
BUN 52 H
Creatinine 1.6 H
Glucose 172 H
Calcium 8.7
Vital Signs:
Vital Signs
Temp Pulse Resp BP Pulse Ox
98.1 F 96 20 98/60 90
04/29/24 07:35 04/29/24 07:35 04/29/24 07:35 04/29/24 07:35 04/29/24 07:35
I&O
04/28/24 04/29/24 04/30/24
06:59 06:59 06:59
Intake Total 1320 / 1320
Output Total 2074 350 / 350
Balance -2074 970 / 970
[2024-04-29] MEDS: DAPSONE 50 MG PO ×2 (07:50→20:09)
[2024-04-29] MEDS: ELIQUIS 5 MG PO ×2 (07:50→20:09)
[2024-04-29] MEDS: VIBRAMYCIN 100 MG PO ×2 (07:50→20:09)
[2024-04-29] MEDS: MUCINEX 600 MG PO ×2 (07:50→20:09)
[2024-04-29] MEDS: PROTONIX 40 MG PO (07:50)
[2024-04-29] MEDS: TIKOSYN 250 MCG PO ×2 (07:50→20:09)
[2024-04-29] MEDS: AFRIN NASAL SPRAY 1 SPRAYS NASAL (07:51)
[2024-04-29] MEDS: TOPROL XL PO (07:51)
[2024-04-29] MEDS: SOLU-MEDROL PF 40 MG IV ×2 (07:52→15:35)
[2024-04-29] MEDS: LASIX 40 MG IV ×2 (07:52→15:35)
[2024-04-29] MEDS: STERILE WATER FOR INJECTION 10 ML IV (07:52)
[2024-04-29] MEDS: ROCEPHIN 1000 MG IV (07:52)
[2024-04-29] MEDS: DUONEB 3 ML INH ×3 (08:14→15:07)
--- NOTE | 2024-04-29 11:17 | CON.ONC ---
Addendum entered and electronically signed by Evelin Rivas MD 04/29/24 16:41:
Asked to comment further on anemia.
Elevated retic count and LDH, with low haptoglobin suggest some underlying hemolysis. DRAKE is negative, suggesting against an immune component. He is already on steroids, though unlikely to be of benefit in DRAKE negative hemolysis. Would not expect
hemolysis w/ a bioprosthetic valve, though it is perhaps related to medications (ie, dapsone). Would monitor CBC and transfuse as clinically indicated. If clinical status improves, could consider further heme workup if anemia worsens.
Original Note:
Impression
Impression
88yo M last seen by Dr. Rubalcava in January 2024 for management of metastatic urothelial cancer with lung mets admitted with acute on chronic respiratory failure. He has remained off antineoplastic therapy since December 2023. His CT chest showed
bilateral pleural effusions, chronic fibrosis, and increased bilateral interstitial and airspace opacities. He is on chronic prednisone therapy for ILD thought to be from prior amiodarone vs pembro therapy managed by Dr. Faustin.
acute on chronic HFpEF
PAF
ILD
CKD
anemia with reticulocytosis (6.2), elev LDH, and haptoglobin <10. Check DRAKE to determine if immune mediated hemolysis
Plan
Plan
OP PET and Dr. Rubalcava follow up is planned for June 2024
f/u DRAKE
ongoing management of acute respiratory failure per cardiology and pulmonary
Patient History
History of Present Illness
88yo M with metastatic urothelial carcinoma with biopsy proven lung mets presented 04/26/2024 with acute on chronic respiratory failure for which he has been admitted for further management. His CT chest w/o IV contrast showed increased bilateral
interstitial and airspace opacities appear, small bilateral pleural effusions, chronic fibrosis, and likely reactive mediastinal lymphadenopathy. WBC 10.1, Hgb 9, platelets 235,000, retic 6.2, haptoglobin <10, creatinine 1.3, Ca 8.5, ferritin 388,
Tbili 1.8, nml AST/ALT/alk phos, LDH 586, BNP 2590, CRP 159. COVID and influenza were negative.
In brief, he was initially diagnosed with early stage urothelial ca in 2022 and underwent curative nephroureterectomy. He did not undergo adjuvant chemotherapy. He unfortunately developed biopsy proven pulmonary metastasis October 2023. He was
treated with Enfortumab plus pembrolizumab but due to suspected compilations of treatment with worsening cardiopulmonary status, he stopped treatment in December 2023. 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
tocicity under the management of Dr. Lunsford.
Past-Medical/Surgical History
PMH pulmonary fibrosis, ILD, HFpEF, CKD, BPH, Atrial fibrillation, HLD
PSH Pulmonary�nodule�evaluation�biopsy, Atrial�valve�replaced Left�nephrectomy Cardioversion, Ablation�202, prostatectomy�202, hernia repair
Social denies ETOH, tobacco use, or recreational drugs. . Retired
Family: denies malignancy
Patient Medication
�Medication �Instructions �Recorded �Confirmed �Last Taken �Type
finasteride 5 mg tablet 5 mg PO HS prostate 05/25/10 04/26/24 04/25/24 History
simvastatin 10 mg tablet 10 mg PO HS High cholesterol 09/04/19 04/26/24 04/25/24 History
apixaban 5 mg tablet (Eliquis) 5 mg PO BID Blood Clot 01/26/24 04/26/24 04/26/24 Rx
Prevention/Tx #0 tabs
dofetilide 250 mcg capsule 250 mcg PO Q12 Arrhythmia 30 days 01/26/24 04/26/24 04/26/24 Rx
#60 caps
dapsone 25 mg tablet 50 mg PO BID Infection 02/17/24 04/27/24 04/26/24 History
pantoprazole 40 mg tablet,delayed 40 mg PO DAILY #30 tabs 03/17/24 04/26/24 04/26/24 Rx
release (Protonix)
metoprolol succinate 25 mg 25 mg PO DAILY Arrhythmia 30 days 03/23/24 04/26/2425 Rx
tablet,extended release 24 hr #30 tabs
furosemide 20 mg tablet (Lasix) 20 mg PO SUMOTUTHFR Fluid 04/26/24 04/26/24 04/25/24 History
Retention/Swelling
oxymetazoline 0.05 % nasal mist 1 spray intranasal DAILYPRN PRN 04/26/24 04/26/24 Unknown History
(Afrin (oxymetazoline)) dryness
prednisone 10 mg tablet 20 mg PO DAILY Anti-Inflammatory 04/26/24 04/26/24 04/26/24 History
sod chloride-sod 1 applic intranasal BIDPRN PRN 04/26/24 04/26/24 Unknown History
bicarb-hyaluronate sod-aloe 0.9 % nose bleeds
nasal spray gel (Nasogel)
Active Medications
Generic Name Dose Route Start Last Admin
Trade Name Freq PRN Reason Stop Dose Admin
Albuterol/Ipratropium 3 ml 04/27/24 12:00 04/29/24 11:04
Ipratropium 0.5/Albuterol 3 Mg (3 Ml Ampul) INH 3 ml
R QID KRISTOFER Administration
Protocol
Albuterol/Ipratropium 3 ml 04/27/24 08:39
Ipratropium 0.5/Albuterol 3 Mg (3 Ml Ampul) INH
R Q4HPRN PRN
wheezing, SOB
Protocol
Apixaban 5 mg 04/26/24 20:00 04/29/24 07:50
Apixaban (Eliquis) 5 Mg Tablet PO 05/24/24 19:59 5 mg
BID KRISTOFER Administration
Atorvastatin Calcium 10 mg 04/26/24 22:00 04/28/24 21:23
Atorvastatin (Lipitor) 10 Mg Tablet PO 05/24/24 21:59 10 mg
HS KRISTOFER Administration
Benzonatate 100 mg 04/27/24 08:47
Benzonatate 100 Mg Capsule PO 05/25/24 08:46
TIDPRN PRN
cough
Ceftriaxone Sodium 1,000 mg 04/27/24 08:00 04/29/24 07:52
Ceftriaxone 1000 Mg / 10 Ml Vial IV 1,000 mg
Q24H KRISTOFER Administration
Dapsone 50 mg 04/27/24 20:35 04/29/24 07:50
Dapsone 25 Mg Tablet PO 05/25/24 20:34 50 mg
BID KRISTOFER Administration
Dofetilide 250 mcg 04/26/24 20:00 04/29/24 07:50
Dofetilide 250 Mcg Capsule PO 05/24/24 19:59 250 mcg
Q12 KRISTOFER Administration
Doxycycline Hyclate 100 mg 04/27/24 08:00 04/29/24 07:50
Doxycycline 100 Mg Capsule PO 100 mg
Q12 KRISTOFER Administration
Finasteride 5 mg 04/26/24 22:00 04/28/24 21:23
Finasteride 5 Mg Tablet PO 05/24/24 21:59 5 mg
HS KRISTOFER Administration
Furosemide 40 mg 04/28/24 16:00 04/29/24 07:52
Furosemide 40 Mg (10 Mg/Ml) 4 Ml Vial IV 05/26/24 15:59 40 mg
BID AT 0800,1600 KRISTOFER Administration
Guaifenesin 600 mg 04/27/24 09:00 04/29/24 07:50
Guaifenesin 600 Mg Extended Release Tablet PO 05/25/24 08:59 600 mg
Q12 KRISTOFER Administration
Heparin Sodium (Porcine) 500 unit 04/27/24 08:00 04/29/24 07:53
Heparin Flush Pf (100 Unit/Ml) 5 Ml Syringe IV 05/25/24 07:59 500 unit
PER PROTOCOL KRISTOFER Administration
Methylprednisolone Sodium Succinate 40 mg 04/27/24 08:45 04/29/24 07:52
Methylprednisolone Pf 40 Mg/Ml Vial IV 05/25/24 08:44 40 mg
Q8 KRISTOFER Administration
Metoprolol Succinate 25 mg 04/27/24 08:00 04/29/24 07:51
Metoprolol 25 Mg Extended Release Tablet PO 05/25/24 07:59 Not Given
DAILY KRISTOFER
Midodrine 5 mg 04/28/24 21:21
Midodrine 5 Mg Tablet PO 05/26/24 21:20
Q4HPRN PRN
sbp<95
Oxymetazoline HCl 0 sprays 04/28/24 08:45 04/29/24 07:51
Oxymetazoline 0.05% (Nasal Flippin) 15 Ml Bottle NASAL 05/26/24 08:44 1 sprays
BID KRISTOFER Administration
Pantoprazole Sodium 40 mg 04/27/24 08:00 04/29/24 07:50
Pantoprazole 40 Mg Delayed Release Tablet PO 05/25/24 07:59 40 mg
DAILY KRISTOFER Administration
Sodium Chloride 0 flush 04/26/24 17:00 04/26/24 21:58
Sodium Chloride 0.9% (Flush) Syringe IV 05/24/24 16:59 2 flush
PER PROTOCOL KRISTOFER Administration
Sodium Chloride 2 sprays 04/27/24 19:27 04/27/24 20:17
Sodium Chloride 0.65% Nasal Flippin 45 Ml Bottle NASAL 05/25/24 19:26 2 sprays
QIDPRN PRN Administration
dry nose/congestion
Sodium Chloride 0 applic 04/27/24 19:27 04/28/24 20:15
[place] (Sodium Chloride/Aloe Vera) Nasal Gel 14.1 Gm Tube NASAL 05/25/24 19:26 1 applic
Q2HPRN PRN Administration
dry nose
Sterile Water 10 ml 04/27/24 08:00 04/29/24 07:52
Sterile Water For Injection 10 Ml Vial IV 05/25/24 07:59 10 ml
Q24H KRISTOFER Administration
Review of Systems
-
ROS notable for HPI, otherwise negative
Physical Exam
-
General: No Apparent Distress and Conversant
HEENT: Moist Mucous Membranes; Negative Jaundice
Cardiology: Irregular Rate/Rhythm and Murmur
Pulmonary: Rales
GI: Soft
Extremities: Pulses Present; Negative Edema
Neurology: Non Focal
Skin: Warm
Hematologic / Lymphatic: No Lymphadenopathy
Psych: Calm
Labs
Lab Results
WBC 14.6 10^3/uL (4.8-10.8) H 04/29/24 05:01
RBC 2.70 10^6/uL (4.70-6.10) L 04/29/24 05:01
Hgb 8.5 g/dL (13.0-18.0) L 04/29/24 05:01
Hct 27.0 % (39.0-52.0) L 04/29/24 05:01
MCV 100.0 fL (80.0-94.0) H 04/29/24 05:01
MCH 31.5 pg (27.0-31.0) H 04/29/24 05:01
MCHC 31.5 g/dL (33.0-37.0) L 04/29/24 05:01
RDW 15.9 % (11.5-14.5) H 04/29/24 05:01
Plt Count 248 10^3/uL (130-400) 04/29/24 05:01
MPV 9.7 fL (7.4-10.4) 04/29/24 05:01
Abs Immat Gran (auto) 0.1 10^3/uL (0-0.05) H 04/28/24 05:05
Absolute Neuts (auto) 7.7 10^3/uL (1.4-6.5) H 04/28/24 05:05
Absolute Lymphs (auto) 0.5 10^3/uL (1.2-3.4) L 04/28/24 05:05
Absolute Monos (auto) 0.5 10^3/uL (0.1-0.6) 04/28/24 05:05
Absolute Eos (auto) 0.0 10^3/uL (0-0.7) 04/28/24 05:05
Absolute Basos (auto) 0.0 10^3/uL (0-0.2) 04/28/24 05:05
Immature Gran % 0.8 % (0-0.5) H 04/28/24 05:05
Neutrophils % 88.6 % (42.2-75.2) H 04/28/24 05:05
Lymphocytes % 5.4 % (20.5-51.1) L 04/28/24 05:05
Monocytes % 5.2 % (1.7-9.3) 04/28/24 05:05
Eosinophils % 0.0 % (0-6) 04/28/24 05:05
Basophils % 0.0 % (0-2) 04/28/24 05:05
Creatinine 1.6 mg/dL (0.7-1.3) H 04/29/24 05:01
Vital Signs
Vital Signs
Temp Pulse Resp BP Pulse Ox
98.1 F 93 18 98/60 90
04/29/24 07:35 04/29/24 11:05 04/29/24 11:05 04/29/24 07:35 04/29/24 09:20
--- NOTE | 2024-04-29 12:20 | W.PN.PUL3 ---
Today's Communication / Plan
-
Remains on 14-15L NC, slow progress
Continue OOB/PT/IS, he has not been doing this as much
Remains on IV steroids, lasix, abx
Still remains full code
Will plan for repeat CXR in AM
Assessment
-
88-year-old man with complicated past medical history noted. Admitted with 24 hours of worsening shortness of breath and hypoxemia. Required up to 10 L of supplemental oxygen at home. Not improving night.
CT scan showed bilateral pleural effusions, increased interstitial markings on top of underlying pulmonary fibrosis/ILD-increased proBNP suggestive of heart failure.
Acute on chronic hypoxemic respiratory failure requiring up to 10 L usually on 6 L-acute on chronic heart failure with preserved ejection fraction
CT chest:Bilateral interstitial and airspace opacities appear increased compared to the chest CT from 01/25/2024. A component of pulmonary edema is suspected given the presence of small bilateral pleural effusions. Findings are superimposed upon
chronic fibrosis (UIP interstitial lung disease). Pneumonia is not definitively excluded and clinical correlation is recommended.
Mediastinal lymphadenopathy, favored to be reactive.
proBNP 2590. Highest historically.
Conditions present prior to admission:
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 Faustin.
Chronic hypoxemia
Maintained on 3 L/min with sleep and 2.5-3 L/min with rest/activity, recently increased to 6 L/min qicckf-jih-kdmax including sleep.
Moderate RLD
[place] 09/26/2023--FVC: 2.63 L / 57%, TLC 66% predicted, DLCO 33%
Recent dosed on hospitalization 02/18/2024-interstitial lung disease flare, infection, CHF-discharged and admitted [facility] for couple days-additional antibiotics
Urothelial cell carcinoma with metastatic disease to the lungs ([facility]) s/p bronchoscopy-[facility] October 2023 Dr Gillis on immunotherapy (not currently on Keytruda given recent pneumonitis)
CHF preserved EF/Diastolic CHF.
Chronic anemia
PAF/ablation x 3/failed sotalol/cardioversion.
Chronic kidney disease.
Nephrolithiasis.
BPH.
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
Left ureterectomy.
Hernia repair.
Port placement.
Plan:
Currently 92% on 14L
BL use of O2 at home up to 6L
Suspect clinical picture consistent with acute on chronic heart failure with preserved ejection fraction on top of underlying interstitial lung disease.
Currently without leukocytosis or fevers.
-
Not unreasonable to keep antibiotics for now as it is difficult to rule out based on prior underlying pulmonary disease
Currently on ceftriaxone/doxycycline -patient is immunosuppressed on long-term prednisone.
Afebrile; no leukocytosis
Procalcitonin not elevated
Influenza negative
COVID-negative
Patient is on prednisone long-term: PJP a possibility but I suspect less likely. Will continue to watch closely.
Continue dapsone
Consider stopping abx due to neg PCT
Patient place of patient placed on IV corticosteroids 40 mg IV every 8 hours Apes-Jvdyup-bdwn rapidly taper off in the next 24 to 48 hours to baseline if he rapidly improved with diuresis.
Will be an ongoing discussion
CRP elevated
proBNP 2500, CT more c/w edema
ECHO with stage 3 DD, moderate PH (worsened from prior ECHO)
Currently on lasix IV BID
-
Bronchodilators for secretion clearance. Not bronchospastic.
-
Cardiology correspondence reviewed
Continue diuresis IV.
Follow renal function and electrolytes
-
DVT prophylaxis-patient on antibiotics.
-
Will follow.
Outpatient follow-up with Dr. Faustin after discharge.
Diagnostic Data
CT Chest 04/26/24-Bilateral interstitial and airspace opacities appear increased compared to the chest CT from 01/25/2024. A component of pulmonary edema is suspected given the presence of small bilateral pleural effusions. Findings are superimposed
upon chronic fibrosis (UIP interstitial lung disease). Pneumonia is not definitively excluded and clinical correlation is recommended. Mediastinal lymphadenopathy, favored to be reactive.
CT Chest 01/25/24- CT findings suggesting scattered foci of acute pneumonitis superimposed on chronic changes of interstitial lung disease. No significant pleural effusions are identified. These CT findings are not considered highly suggestive of a
superimposed component of pulmonary edema. Rounded focus of increased density within the lingula, similar size to previous CT, but now having air bronchograms. The visualization of air bronchograms suggested this is most likely a focal area of
atelectasis and/or scarring rather than neoplasia, but continued follow-up is advised. 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 Slight dilation of the ascending aorta superior to the graft, short axis
diameter 4.4 cm, stable from prior examination.
Chest x-ray 02/16/2021-NAD
Chest x-ray 09/08/2023-moderate CHF
Chest x-ray 09/19/2023-stable interstitial and airspace opacifications
Chest x-ray 12/08/2023-bilateral interstitial opacifications suspecting chronic interstitial lung disease
Chest x-ray 01/18/2024-left lower lobe pneumonia superimposed on chronic interstitial infiltrates
Chest x-ray 02/09-bilateral pulmonary parenchymal opacifications with some improvement
Chest x-ray 02/17/2024-bilateral parenchymal opacifications slightly progressed in the left lung and in the right lower lung possibly minimal superimposed alveolar component, at least a component of findings may be chronic
Chest x-ray 03/06/2024-findings suspicious for mild left lung base pneumonia
CT chest 05/03/2021-no significant acute abnormalities, 2 adjacent solid nodules measuring 7 mm not changed since 2019
CT abdomen-small filling defects within the left renal pelvis suspicious for upper urinary tract malignancy, lung bases subsegmental atelectasis
CT abdomen and pelvis 02/06/2023-nonobstructing right renal stone, lung bases are clear
CT abdomen and pelvis 08/06/2023-lung bases minimal bilateral pleural effusions, interstitial edema in the lung bases, post left nephrectomy, nonobstructing right nephrolithiasis
CT chest 09/12/2023-widespread prominence of pulmonary interstitium and new widespread areas of groundglass opacifications, mild mediastinal lymphadenopathy
CT chest 11/27/2023-oblong left upper lobe mass measuring 3.[address] chest 01/25/2024-scattered foci of acute pneumonitis superimposed on chronic changes of interstitial lung disease
PET scan 11/14/2023-activity seen in presumed urinary bladder/prostate defect from prior surgery likely physiologic, mild FDG uptake lesion upper lobe of the lung, minimal FDG uptake lower lobes of the lungs likely inflammatory
Echocardiogram 01/21/24-EF 59%, stage III diastolic dysfunction, well-seated number 23 mm aortic valve, PA systolic 35-40
ECHO 04/28/24- Normal left ventricular size and systolic function. No regional wall motion abnormalities are seen. LV ejection fraction is 60-65% by visual assessment. Moderate concentric left ventricular hypertrophy. Diastolic function
indeterminate. Structurally normal mitral valve. Mitral valve opens normally. Mild mitral regurgitation. Indexed LA volume is severely abnormal (> 48 mL/m2). #23 stentless freestyle aortic valve. Peak/mean gradients are 36/20 mmHg. Trace aortic
regurgitation is seen. Structurally normal tricuspid valve. Tricuspid valve opens normally. Moderate tricuspid regurgitation. Estimated pulmonary artery pressure of 65 mmHg. Assuming a right atrial pressure of 8 mmHg. Since echocardiogram January
2023, mean pressure gradient across aortic valve prosthesis is increased from 11 mmHg to 20 mmHg. PA systolic pressures increased from 35-40 mmHg to 65 mmHg.
Reports and relevant images were personally reviewed.
Total time spent on this encounter __50__ minutes which includes review of history, physical exam, medications, laboratory data, personal review of imaging, extensive review of outpatient records, discussion with care team and respiratory therapy.
Subjective Data
-
Date of Service:
Date of Service: April 29, 2024
Chief Complaint: Pulmonary Follow Up
Subjective:
No new complaints, remains on 14-15L
Objective Data
Data Reviewed
Vital Signs / I&O / Oxygen:
Vital Signs
Temp Pulse Resp BP Pulse Ox
97.3 F 95 18 97/64 92
04/29/24 11:10 04/29/24 11:10 04/29/24 11:10 04/29/24 11:10 04/29/24 11:10
Intake and Output
04/28/24 04/29/24 04/30/24
06:59 06:59 06:59
Intake Total 1320 / 1320
Output Total 2074 350 / 350
Balance -2074 / -2074 970 / 970
SaO2 92
Nasal Cannula flow liters per 15
minute
Physical Exam
General: Comfortable and Other (NAD)
HEENT: Normocephalic, Anicteric and Moist Mucous Membranes
Cardiovascular: S1-S2 and Regular Rhythm
Respiratory: Crackles and Non-Labored Respirations
GI: Soft, Non Distended and Non Tender
Neurology: Awake, Alert, Oriented and No Motor Deficits
Skin: Warm and Good Color
Labs/Micro/Reports
Lab Data
04/29/24 05:01
04/29/24 05:01
Microbiology
04/26/24 17:45 Nasal Swab Influenza Types A & B (MIO) - Final
Negative for Influenza A & B, NAAT
Negative results must be combined with clinical observations
and patient history.
Nucleic Acid Amplification test (NAAT)performed on the
[employer] platform.
--- NOTE | 2024-04-29 13:03 | W.PN.CARDCBS ---
Addendum entered and electronically signed by Guerrero Bennett MD 04/29/24 13:16:
I saw and examined the patient.
The SCALPING MACHINE OPERATOR or PA's note was reviewed and I agree with the note.
Comment: General: Well developed, well nourished in NAD.
Neck: Supple, no JVD, HJR, carotids +2 B/L, no bruits bilaterally.
Heart: Non displaced PMI, RRR, no murmurs, No S3, S4, no rubs.
Lungs: Scattered rhonchi throughout
Extremities: No clubbing, cyanosis or edema bilaterally.
Neuro: Grossly nonfocal, awake, alert and oriented x3.
He remains hypoxemic and creatinine has increased to 1.6. May need to consider decreasing or stopping IV Lasix if renal function continues to worsen. It is suspected the most of hypoxemia is due to interstitial lung disease. Continue steroids.
Original Note:
Today's Communication / Plan
-
Cre up to 1.6 with Lasix 40 mg IV BID
Impression / Plan
-
PCP: Brant Kruse MD
Primary 4 Year Olds Preschool Teacher: Dr. Tomi Ring
Primary Hot Stick Worker: Dr. Holly Dixon at [place]
Impression:
Presentation with SOB and worsening hypoxia
Acute HFpEF
Paroxysmal afib/aflutter/atach
s/p PVI 10/08/2019
s/p PVI, posterior wall ablation, mitral annular flutter ablation 11/17/2020
s/p posterior L atrial wall ablation, right atrial tachycardia ablation 06/30/2021
Failed sotalol
Chronic amiodarone therapy from 01/2022 until 09/12/23, stopped due to amio lung toxicity
s/p [employer] loop recorder 11/15/23
s/p complex ablation of 3 left atrial tachycardias and 2 right atrial tachycardias and SVT 01/16/2024
A-fib recurrence 01/17/2024 status post successful cardioversion in ER
s/p Left Atach and Right Atach ablations 01/16/24
Tikosyn loading 01/19/24
Chronic anticoagulation with Eliquis
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
Bladder cancer s/p L robotic nephroureterectomy 09/20/2022, multiple TURBTs with new bladder tumors s/p resection
New metastatic disease to lung, started PadCev 12/19/23 weekly with Keytruda q 21 days first dose 12/19/23, also prednisone and bactrim m,w,f
h/o nephrolithiasis with stone removal and stent placement
Chronic renal insufficiency
h/o aortic valve replacement 2007
HLD
BPH
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
Echo 09/05/23: EF 60 to 65%, stage III diastolic dysfunction, mild concentric LVH, dilated RV, severely dilated atria, mild to moderate MR, well-seated #23 AVR with peak/mean gradients 10/5 mmHg, moderate TR, PAP 57 mmHg
Echo 01/21/24: EF 59%, mild concentric LVH, stage III diastolic dysfunction, normal RV size and function, well-seated tissue AVR peak/mean 23/11 mmHg without aortic regurgitation, mild to moderate TR with PAP 35 to 40 mmHg
Plan:
-Patient with ongoing acute on chronic multifactorial hypoxic respiratory insufficiency and requiring 15 L midflow.
-Patient with ILD and possible h/o amio lung toxicity, but then later diagnosed with lung mets from primary urothelial CA and treatment with Keytruda and Padcev was started with may have increased interstitial pneumonitis.
-Patient was on chronic amiodarone therapy from 01/2022 until 09/12/23. Patient is hopeful that as he get further out from last dose of amiodarone that his ILD will improve. Reviewed that there is also the possibility that Keytruda contributed to
ILD.
-Patient being followed by [facility]-Medrol 40 mg IV q 8 hours ordered
-Diuresing with Lasix 40 mg IV BID. Weight is down 1 lb overnight. Patient is below previous dry weight.
-Cre was 1.3 on admission and up to 1.6 on 04/29/24. Will follow.
-Outpatient dose of Toprol XL 25 mg daily has been continued, cannot increase dose due to intermittent hypotension.
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
-Tele reviewed by me 04/28/24 looks like SR, but HRs in the 90s. Patient with a h/o symptomatic Afib/flutter/tach and last ablation was an Atach ablation 01/16/24.
-Outpatient dose of Tikosyn 250 mcg q 12 hours has been continued. QTc was 477 ms on ECG 04/26/24. Recheck ECG in AM to assure stable QT.
-Outpatient dose of Eliquis 5 mg BID (age 88, Cre 1.4, wt 83.574) has been continued.
Progress Note - 4 Year Olds Preschool Teacher
Subjective
Date of Service: April 29, 2024
No symptomatic improvement
Objective
Labs:
04/29/24 05:01
04/29/24 05:01
Labs
Hgb 8.5 g/dL (13.0-18.0) L 04/29/24 05:01
Hct 27.0 % (39.0-52.0) L 04/29/24 05:01
Plt Count 248 10^3/uL (130-400) 04/29/24 05:01
Sodium 135 mmol/L (135-145) 04/29/24 05:01
Potassium 3.8 mmol/L (3.5-5.1) 04/29/24 05:01
BUN 52 mg/dl (9-20) H 04/29/24 05:01
Creatinine 1.6 mg/dL (0.7-1.3) H 04/29/24 05:01
Glucose 172 mg/dl (70-99) H 04/29/24 05:01
Vital Signs and I&O:
Vital Signs
Temp Pulse Resp BP Pulse Ox
97.3 F 95 18 97/64 92
04/29/24 11:10 04/29/24 11:10 04/29/24 11:10 04/29/24 11:10 04/29/24 11:10
Vital Signs
Temp Pulse Resp BP Pulse Ox
97.3 F 95 18 97/64 92
04/29/24 11:10 04/29/24 11:10 04/29/24 11:10 04/29/24 11:10 04/29/24 11:10
Intake & Output
04/27/24 04/28/24 04/29/24 04/30/24
06:59 06:59 06:59 06:59
Intake Total 960 / 960 1320 / 1320
Output Total 3750 / 3750 2074 / 2074 350 / 350
Balance -2790 / -2790 -2074 / -2074 970 / 970
Physical Exam
Physical Exam
GEN: AAO x3
HEENT: MMM
LUNGS: Wearing oxygen at 15 L midflow. No audible wheeze
CV: SR with frequent PVCs on tele
ABD: ND
EXT: No edema B/L LE
NEURO: Gross non-focal
SKIN: No rash
[2024-04-29] MEDS: ProAmatine 5 MG PO (18:52)
[2024-04-29] MEDS: LOPRESSOR 5 MG IV (18:52)
[2024-04-29] MEDS: XOPENEX 1.25 MG INHALANT SOLUTION INH (19:55)
[2024-04-29] MEDS: ATROVENT NEBULES 0.5 MG INH (19:55)
[2024-04-29] MEDS: AFRIN NASAL SPRAY 30 SPRAYS NASAL (20:13)
[2024-04-29] MEDS: LIPITOR 10 MG PO (23:13)
[2024-04-29] MEDS: PROSCAR 5 MG PO (23:13)
--- NOTE | 2024-04-30 00:24 | PTCARENOTE ---
Pt assessed as per flow sheet. Pt denies complaints. tolerated all meds. No s/s of distress assessed. Will continue to monitor.
[2024-04-30] MEDS: SOLU-MEDROL PF 40 MG IV ×3 (01:11→15:07)
[2024-04-30 03:41] VITALS: BP 94/58
[2024-04-30 05:42] LABS: Hemoglobin 8.6 g/dL (13.0-18.0); Mean Corp Hgb Conc. 31.9 g/dL (33.0-37.0); Mean Corpuscular Hgb 31.7 pg (27.0-31.0); Mean Corpuscular Volume 99.6 fL (80.0-94.0); Mean Platelet Volume 9.8 fL (7.4-10.4); Platelet Count 265 10^3/uL (130-400); Red Blood Cell Count 2.71 10^6/uL (4.70-6.10); Red Cell Dist. Width 15.9 % (11.5-14.5); White Blood Cell Count 12.7 10^3/uL (4.8-10.8)
[2024-04-30 06:00] VITALS: BMI 24.8
[2024-04-30 06:07] LABS: Blood Urea Nitrogen 62 mg/dl (9-20); Calcium 8.6 mg/dl (8.4-10.2); Carbon Dioxide 31 mmol/L (22-30); Chloride 99 mmol/L (98-107); Estimated Creatinine Clearance 36 ml/min; Glucose 165 mg/dl (70-99); Sodium 137 mmol/L (135-145)
[2024-04-30 07:40] VITALS: BP 104/63
[2024-04-30] MEDS: STERILE WATER FOR INJECTION 10 ML IV (07:48)
[2024-04-30] MEDS: ROCEPHIN 1000 MG IV (07:48)
[2024-04-30] MEDS: ELIQUIS 5 MG PO ×2 (07:49→19:33)
[2024-04-30] MEDS: PROTONIX 40 MG PO (07:50)
[2024-04-30] MEDS: DAPSONE 50 MG PO ×2 (07:50→19:26)
[2024-04-30] MEDS: VIBRAMYCIN 100 MG PO ×2 (07:50→19:33)
[2024-04-30] MEDS: MUCINEX 600 MG PO ×2 (07:50→19:33)
[2024-04-30] MEDS: TIKOSYN 250 MCG PO ×2 (07:51→19:32)
[2024-04-30] MEDS: TOPROL XL PO (07:51)
[2024-04-30] MEDS: ATROVENT NEBULES 0.5 MG INH ×3 (08:01→19:45)
[2024-04-30] MEDS: XOPENEX 1.25 MG INHALANT SOLUTION INH ×3 (08:01→19:45)
[2024-04-30] MEDS: AFRIN NASAL SPRAY 1 SPRAYS NASAL (08:04)
--- NOTE | 2024-04-30 08:25 | W.PN.HOSP.TC ---
Today's Communication/Plan
-
Consult palliative care
Continue goals of care discussion
Assessment / Plan
Assessment / Plan
88yo M with PMHX of ILD with chronic respiratory failure on up to 10L home O2, Afib on ELiquis, s/p bioprosthetic valve, bladder cancer s/p resection with metastatic disease BPH, GERD and HLD came with worsening hypoxia, managed for CHF
exacerbation, superiposed on possible ILD and cannot exclude CAP. Hemoptysis and increased cough at home. Also was titrating down Prednisone at home after recent hospitalization, currently on 20mg
A/P:
#Acute on chronic hypoxic respiratory failure
Currently requiring 14-15 L of oxygen, he wears 6 L at baseline
Multifactorial, due to his progressive ILD, CHF, and possible pneumonia
Patient has been informed today and multiple times that he is hospice appropriate, and recommend DNR
Consult palliative
#Acute heart failure with a preserved ejection fraction
Appreciate cardiology input, patient's hypoxemia is due to his ILD and pneumonia
Cardiology recommends continuing IV Lasix for now
#Acute ILD flare
Appreciate pulmonology input, continue IV steroids
#Possible multifocal pneumonia with reactive mediastinal lympadenopathy
Appreciate pulmonology input, continue Rocephin/Doxy, bronchodilators, mucolythics, antitussives
#JUAN on CKD stage 3a
Monitor
#Afib, paroxysmal
Continue Tikosyn, Eliquis
Unable to increase Toprol XL secondary to soft blood pressures
Changed bronchodilators to Xopenex
#Metastatic bladder CA previously on Keytruda, now on no chemo
#HLD
cont home meds
#Anemia, macrocytic with elevated retics
#Hemoptysis (minimal, streaks of blood with cough)
Elevated LDH, f/u haptoglobin, Kam
DVT ppx - eliquis
Full code
Total time spent to see the patient on the floor, examine the patient, review data and lab results, discuss treatment plan with patient, nursing staff around 51 minutes.
Physical Exam
General: Appears chronically ill, no acute distress
HEENT: Normocephalic, Atraumatic, EOMI, MMM
Respiratory: Bibasilar crackles
Cardiac: Normal S1/S2, Regular Rate and Rhythm
GI: Soft, Nontender, Nondistended, Normal Bowel Sounds
Extremities: No Clubbing, Cyanosis, or Edema
Neuro: Nonfocal/Grossly Intact
Psych: Calm, Cooperative
Derm: No Visible lesions
Anticipated Discharge: > 48 hours
Subjective/Interval History
-
Date of Service: April 30, 2024
Patient reports his shortness of breath is the same. His cough is worse. He continues to have severe dyspnea with activity. No fever, no vomiting.
Objective Data
-
Labs:
Laboratory Results
04/30/24
04:53
WBC 12.7 H
Hgb 8.6 L
Hct 27.0 L
Plt Count 265
Sodium 137
Potassium 4.0
Chloride 99
Carbon Dioxide 31 H
BUN 62 H
Creatinine 1.6 H
Glucose 165 H
Calcium 8.6
Vital Signs:
Vital Signs
Temp Pulse Resp BP Pulse Ox
98 F 108 18 104/63 98
04/30/24 07:40 04/30/24 08:02 04/30/24 08:02 04/30/24 07:51 04/30/24 08:16
I&O
04/29/24 04/30/24 05/01/24
06:59 06:59 06:59
Intake Total 1320 / 1320 1200 / 1200
Output Total 350 / 350 2200 / 2200
Balance 970 / 970 -1000 / -1000
--- NOTE | 2024-04-30 09:11 | W.PN.PUL3 ---
Today's Communication / Plan
-
Remains on similar O2 requirements, continued on IV steroids
Does not seem to be improving despite treatment
Repeat CXR shows slight improvement
Pall care c/s obtained, await decision making
Code status to be addressed, he remains full code
Assessment
-
88-year-old man with complicated past medical history noted. Admitted with 24 hours of worsening shortness of breath and hypoxemia. Required up to 10 L of supplemental oxygen at home. Not improving night.
CT scan showed bilateral pleural effusions, increased interstitial markings on top of underlying pulmonary fibrosis/ILD-increased proBNP suggestive of heart failure.
Acute on chronic hypoxemic respiratory failure requiring up to 10 L usually on 6 L-acute on chronic heart failure with preserved ejection fraction
CT chest:Bilateral interstitial and airspace opacities appear increased compared to the chest CT from 01/25/2024. A component of pulmonary edema is suspected given the presence of small bilateral pleural effusions. Findings are superimposed upon
chronic fibrosis (UIP interstitial lung disease). Pneumonia is not definitively excluded and clinical correlation is recommended.
Mediastinal lymphadenopathy, favored to be reactive.
proBNP 2590. Highest historically.
Conditions present prior to admission:
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 Faustin.
Chronic hypoxemia
Maintained on 3 L/min with sleep and 2.5-3 L/min with rest/activity, recently increased to 6 L/min [id number] including sleep.
Moderate RLD
[place] 09/26/2023--FVC: 2.63 L / 57%, TLC 66% predicted, DLCO 33%
Recent dosed on hospitalization 02/18/2024-interstitial lung disease flare, infection, CHF-discharged and admitted [facility] for couple days-additional antibiotics
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
CHF preserved EF/Diastolic CHF.
Chronic anemia
PAF/ablation x 3/failed sotalol/cardioversion.
Chronic kidney disease.
Nephrolithiasis.
BPH.
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
Left ureterectomy.
Hernia repair.
Port placement.
Plan:
Currently 92% on 14-15L
BL use of O2 at home up to 6L
Suspect clinical picture consistent with acute on chronic heart failure with preserved ejection fraction on top of underlying interstitial lung disease.
Currently without leukocytosis or fevers.
-
Not unreasonable to keep antibiotics for now as it is difficult to rule out based on prior underlying pulmonary disease
Currently on ceftriaxone/doxycycline -patient is immunosuppressed on long-term prednisone.
Afebrile; no leukocytosis
Procalcitonin not elevated
Influenza negative
COVID-negative
Patient is on prednisone long-term: PJP a possibility but I suspect less likely. Will continue to watch closely.
Continue dapsone
Consider stopping abx due to neg PCT
Repeat CXR obtained today appears slightly improved
Patient place of patient placed on IV corticosteroids 40 mg IV every 8 hours Solu-Medrol
Have not been able to taper due to lack of improvement
Will be an ongoing discussion
CRP elevated
proBNP 2500, CT more c/w edema
ECHO with stage 3 DD, moderate PH (worsened from prior ECHO)
Currently on lasix IV BID
-
Bronchodilators for secretion clearance. Not bronchospastic.
-
Cardiology correspondence reviewed
Continue diuresis IV.
Follow renal function and electrolytes
-
DVT prophylaxis-patient on antibiotics.
Pall care consult obtained, code status to be addressed
Outpatient follow-up with Dr. Faustin after discharge if improving
Diagnostic Data
CT Chest 04/26/24-Bilateral interstitial and airspace opacities appear increased compared to the chest CT from 01/25/2024. A component of pulmonary edema is suspected given the presence of small bilateral pleural effusions. Findings are superimposed
upon chronic fibrosis (UIP interstitial lung disease). Pneumonia is not definitively excluded and clinical correlation is recommended. Mediastinal lymphadenopathy, favored to be reactive.
CT Chest 01/25/24- CT findings suggesting scattered foci of acute pneumonitis superimposed on chronic changes of interstitial lung disease. No significant pleural effusions are identified. These CT findings are not considered highly suggestive of a
superimposed component of pulmonary edema. Rounded focus of increased density within the lingula, similar size to previous CT, but now having air bronchograms. The visualization of air bronchograms suggested this is most likely a focal area of
atelectasis and/or scarring rather than neoplasia, but continued follow-up is advised. 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 Slight dilation of the ascending aorta superior to the graft, short axis
diameter 4.4 cm, stable from prior examination.
Chest x-ray 02/16/2021-NAD
Chest x-ray 09/08/2023-moderate CHF
Chest x-ray 09/19/2023-stable interstitial and airspace opacifications
Chest x-ray 12/08/2023-bilateral interstitial opacifications suspecting chronic interstitial lung disease
Chest x-ray 01/18/2024-left lower lobe pneumonia superimposed on chronic interstitial infiltrates
Chest x-ray 02/09-bilateral pulmonary parenchymal opacifications with some improvement
Chest x-ray 02/17/2024-bilateral parenchymal opacifications slightly progressed in the left lung and in the right lower lung possibly minimal superimposed alveolar component, at least a component of findings may be chronic
Chest x-ray 03/06/2024-findings suspicious for mild left lung base pneumonia
CT chest 05/03/2021-no significant acute abnormalities, 2 adjacent solid nodules measuring 7 mm not changed since 2019
CT abdomen-small filling defects within the left renal pelvis suspicious for upper urinary tract malignancy, lung bases subsegmental atelectasis
CT abdomen and pelvis 02/06/2023-nonobstructing right renal stone, lung bases are clear
CT abdomen and pelvis 08/06/2023-lung bases minimal bilateral pleural effusions, interstitial edema in the lung bases, post left nephrectomy, nonobstructing right nephrolithiasis
CT chest 09/12/2023-widespread prominence of pulmonary interstitium and new widespread areas of groundglass opacifications, mild mediastinal lymphadenopathy
CT chest 11/27/2023-oblong left upper lobe mass measuring 3.[address] chest 01/25/2024-scattered foci of acute pneumonitis superimposed on chronic changes of interstitial lung disease
PET scan 11/14/2023-activity seen in presumed urinary bladder/prostate defect from prior surgery likely physiologic, mild FDG uptake lesion upper lobe of the lung, minimal FDG uptake lower lobes of the lungs likely inflammatory
Echocardiogram 01/21/24-EF 59%, stage III diastolic dysfunction, well-seated number 23 mm aortic valve, PA systolic 35-40
ECHO 04/28/24- Normal left ventricular size and systolic function. No regional wall motion abnormalities are seen. LV ejection fraction is 60-65% by visual assessment. Moderate concentric left ventricular hypertrophy. Diastolic function
indeterminate. Structurally normal mitral valve. Mitral valve opens normally. Mild mitral regurgitation. Indexed LA volume is severely abnormal (> 48 mL/m2). #23 stentless freestyle aortic valve. Peak/mean gradients are 36/20 mmHg. Trace aortic
regurgitation is seen. Structurally normal tricuspid valve. Tricuspid valve opens normally. Moderate tricuspid regurgitation. Estimated pulmonary artery pressure of 65 mmHg. Assuming a right atrial pressure of 8 mmHg. Since echocardiogram January
2023, mean pressure gradient across aortic valve prosthesis is increased from 11 mmHg to 20 mmHg. PA systolic pressures increased from 35-40 mmHg to 65 mmHg.
Reports and relevant images were personally reviewed.
Total time spent on this encounter __50__ minutes which includes review of history, physical exam, medications, laboratory data, personal review of imaging, extensive review of outpatient records, discussion with care team and respiratory therapy.
Subjective Data
-
Date of Service:
Date of Service: April 30, 2024
Chief Complaint: Pulmonary Follow Up
Subjective:
No significant improvement on 15L
No changes in complaints
Objective Data
Data Reviewed
Vital Signs / I&O / Oxygen:
Vital Signs
Temp Pulse Resp BP Pulse Ox
98 F 108 18 104/63 98
04/30/24 07:40 04/30/24 08:02 04/30/24 08:02 04/30/24 07:51 04/30/24 08:16
Intake and Output
04/29/24 04/30/24 05/01/24
06:59 06:59 06:59
Intake Total 1320 / 1320 1200 / 1200
Output Total 350 / 350 2200 / 2200
Balance 970 / 970 -1000 / -1000
SaO2 98
Nasal Cannula flow liters per 15
minute
Physical Exam
General: Comfortable and Other (NAD)
HEENT: Normocephalic, Anicteric and Moist Mucous Membranes
Cardiovascular: S1-S2 and Regular Rhythm
Respiratory: Crackles and Non-Labored Respirations
GI: Soft, Non Distended and Non Tender
Neurology: Awake, Alert, Oriented and No Motor Deficits
Skin: Warm and Good Color
Labs/Micro/Reports
Lab Data
04/30/24 04:53
04/30/24 04:53
[2024-04-30 11:06] VITALS: BP 117/77
--- NOTE | 2024-04-30 12:25 | HOSPNOTE ---
Was asked to give information in regards to hospice services. Explained hospice and left my information if the patient would need more information.
--- NOTE | 2024-04-30 12:58 | W.PN.CARDCBS ---
Addendum entered and electronically signed by Guerrero Bennett MD 04/30/24 13:10:
I saw and examined the patient.
The RUG DESIGNER or PA's note was reviewed and I agree with the note.
Comment: General: Well developed, well nourished in NAD.
Neck: Supple, no JVD, HJR, carotids +2 B/L, no bruits bilaterally.
Heart: Non displaced PMI, RRR, no murmurs, No S3, S4, no rubs.
Lungs: Scattered rhonchi throughout
Extremities: No clubbing, cyanosis or edema bilaterally.
Neuro: Grossly nonfocal, awake, alert and oriented x3.
He remains on 15 L. Creatinine has increased to 1.6 but is stable. Will keep on IV Lasix although he may be getting over diuresed. Will recheck proBNP which was 2590 on 04/26/2024.
Original Note:
Today's Communication / Plan
-
Looks like a palliative care consult order was placed today
Cont Lasix 40 mg IV BID
Recheck pro-BNP, ordered by me
Impression / Plan
-
PCP: Brant Kruse MD
Primary Computing Services Director: Dr. Tomi Ring
Primary Professional Nursing Tutor: Dr. Holly Dixon at [facility]
Impression:
Presentation with SOB and worsening hypoxia
Acute HFpEF
Paroxysmal afib/aflutter/atach
s/p PVI 10/08/2019
s/p PVI, posterior wall ablation, mitral annular flutter ablation 11/17/2020
s/p posterior L atrial wall ablation, right atrial tachycardia ablation 06/30/2021
Failed sotalol
Chronic amiodarone therapy from 01/2022 until 09/12/23, stopped due to amio lung toxicity
s/p Medtr[employer] loop recorder 11/15/23
s/p complex ablation of 3 left atrial tachycardias and 2 right atrial tachycardias and SVT 01/16/2024
A-fib recurrence 01/17/2024 status post successful cardioversion in ER
s/p Left Atach and Right Atach ablations 01/16/24
Tikosyn loading 01/19/24
Chronic anticoagulation with Eliquis
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
Bladder cancer s/p L robotic nephroureterectomy 09/20/2022, multiple TURBTs with new bladder tumors s/p resection
New metastatic disease to lung, started PadCev 12/19/23 weekly with Keytruda q 21 days first dose 12/19/23, also prednisone and bactrim m,w,f
h/o nephrolithiasis with stone removal and stent placement
Chronic renal insufficiency
h/o aortic valve replacement 2007
HLD
BPH
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
Echo 09/05/23: EF 60 to 65%, stage III diastolic dysfunction, mild concentric LVH, dilated RV, severely dilated atria, mild to moderate MR, well-seated #23 AVR with peak/mean gradients 10/5 mmHg, moderate TR, PAP 57 mmHg
Echo 01/21/24: EF 59%, mild concentric LVH, stage III diastolic dysfunction, normal RV size and function, well-seated tissue AVR peak/mean 23/11 mmHg without aortic regurgitation, mild to moderate TR with PAP 35 to 40 mmHg
Plan:
-Continues on 15 L midflow.
-Patient with ILD possibly related to amiodarone or Keytruda. Amiodarone was stopped 09/12/23.
-Patient also with lung mets from primary urothelial CA.
-Pulmonology following and Solu-Medrol 40 mg IV q 8 hours ordered
-Weight is down another 1 lb overnight. Patient is below previous dry weight.
-Volume status difficult due to lung disease. Cre up to 1.6 on 04/29/24 and is stable on 04/30/24. Will cont Lasix 40 mg IV BID for now. Recheck pro-BNP to help with volume status, pro-BNP was 2590 on admission.
-Patient is below previous dry weight.
-Patient with known paroxysmal Afib and last ablation was an Atach ablation 01/16/24.
-Outpatient dose of Toprol XL 25 mg daily has been continued, cannot increase dose due to intermittent hypotension.
-Outpatient dose of Tikosyn 250 mcg q 12 hours has been continued. QTc was 477 ms on ECG 04/26/24. Recheck ECG in AM to assure stable QT.
-Outpatient dose of Eliquis 5 mg BID (age 88, Cre 1.4, wt 83.574) has been continued.
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
-Consult for palliative care seen in orders on 04/30/24
Progress Note - Computing Services Director
Subjective
Date of Service: April 30, 2024
Still SOB with activity
Objective
Labs:
04/30/24 04:53
04/30/24 04:53
Labs
Hgb 8.6 g/dL (13.0-18.0) L 04/30/24 04:53
Hct 27.0 % (39.0-52.0) L 04/30/24 04:53
Plt Count 265 10^3/uL (130-400) 04/30/24 04:53
Sodium 137 mmol/L (135-145) 04/30/24 04:53
Potassium 4.0 mmol/L (3.5-5.1) 04/30/24 04:53
BUN 62 mg/dl (9-20) H 04/30/24 04:53
Creatinine 1.6 mg/dL (0.7-1.3) H 04/30/24 04:53
Glucose 165 mg/dl (70-99) H 04/30/24 04:53
Vital Signs and I&O:
Vital Signs
Temp Pulse Resp BP Pulse Ox
98.1 F 98 18 117/77 92
04/30/24 11:06 04/30/24 11:06 04/30/24 11:06 04/30/24 11:06 04/30/24 11:06
Vital Signs
Temp Pulse Resp BP Pulse Ox
98.1 F 98 18 117/77 92
04/30/24 11:06 04/30/24 11:06 04/30/24 11:06 04/30/24 11:06 04/30/24 11:06
Intake & Output
04/28/24 04/29/24 04/30/24 05/01/24
06:59 06:59 06:59 06:59
Intake Total 1320 / 1320 1200 / 1200
Output Total 2074 / 2074 350 / 350 2200 / 2200
Balance -2074 / -2074 970 / 970 -1000 / -1000
Physical Exam
Physical Exam
GEN: AAO x3
LUNGS: Wearing oxygen at 15 L midflow.
CV: SR with frequent PVCs on tele
NEURO: Gross non-focal
--- NOTE | 2024-04-30 13:10 | W.CON.PAL ---
Consultation
-
Date/Time Consultation Requested: 04/30/2024
Date/Time Consultation Performed: 04/30/2024
Requesting Provider: Dr. Vazquez
Performing Provider: Dr. Molina
Reason for Consult: Goals of Care Discussion
Primary Diagnosis: IV metastatic Urothelial cell cancer and advanced ILD
Reason for Admission
Illness Course/HPI
Omari is a 88 y/o male admitted to hospital for dyspnea. he has a known history of IV metastatic urothelial cell cancer, who has had a steep decline in function since august 2023. Prior to that he describes himself as physically fit, running,
independent. 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 Since the summer he has had issues with heart rate - which he attributes to keytruda, then was put on amiodarone - which he believes contributed to development of pulmonary fibrosis/ILD. He has required
multiple cardioversions for afib. Was in the hospital in december and january for similar issues.
Was in the hospital 02/18-02/25, then went to [facility] 02/26-03/04, hospitalized at 03/06-03/13, and again 03/14-03/23.
Readmitted 04/26-present for hypoxia, currently requiring 14-15L, at baseline uses 8L.
Patient was offered outpatient palliative care visits but did not schedule visits after calls from our office in february.
Consulted today to discuss goals of care.
Functional Status
baseline 6 months ago - indepdenent
Currently - limited to walking just a few
Lives in a [address] home with , has in home elevator. has 3 sons that live nearby, (one son is the survey chief for the helicopter at )
Goals of Care Discussion
-
Individuals Present for Discussion & Relationship to Patient:
Patient
Patient Goals
Patient had conversation with Attending Dr. Vazquez yesterday
Omari is leaning heavily towards hospice and to change code status to DNR, but needed more information about hospice. He also wants to talk with his maintainer central office who I have reached out to. He understands that his breathing is not getting better
and he is very limited in what he can do.
He shares that they make decisions as a family, but he is waiting to get all the information before he presents his thoughts to his family, and asked to speak to me privately before his arrived. He believes family will be in support of this,
but he wants to have all the information first.
We discussed the importance of coming to a decision about code status jeremy, as well as hospice for discharge planning purposes.
Provided contact information for hospice as well.
Pain & Symptom Assessment
Patient Symptoms
Patient Symptoms: Dyspnea
Objective Data
-
Objective Data:
Vital Signs
Temp Pulse Resp BP Pulse Ox
98.1 F 98 18 117/77 92
04/30/24 11:06 04/30/24 11:06 04/30/24 11:06 04/30/24 11:06 04/30/24 11:06
Laboratory Results
04/30/24 04:53
04/30/24 04:53
Total Protein 5.6 g/dl (6.3-8.2) L 04/28/24 05:05
Albumin 3.5 g/dl (3.5-5.0) 04/28/24 05:05
Palliative Performance Scale
Palliative Performance Scale:
PPS Level Ambulation Activity & Evidence of Disease Self Care Intake Conscious Level
100% Full Normal Activity & Work; Full Intake Full
No Evidence of Disease
90% Full Normal Activity & Work; Full Normal Full
Some Evidence of Disease
80% Full Normal Activity with Effort Full Normal or Full
Some Evidence of Disease Reduced
70% Reduced Unable Normal Job/Work Full Normal or Full
Significant Disease Reduced
60% Reduced Unable Hobby/Housework Occasional Normal or Full or Confusion
Significant Disease Assistance Reduced
50% Mainly Sit/Lie Unable to do Any Work Considerable Normal or Full or Confusion
Extensive Disease Assistance Req'd Reduced
40% Mainly in Bed Unable to do Most Activity Mainly Assistance Normal or Full or Drowsy;
Extensive Disease Reduced +/- Confusion
30% Totally Bed Unable to do Any Activity Total Care Normal or Full or Drowsy;
Bound Extensive Disease Reduced +/- Confusion
20% Totally Bed Bound Unable to do Any Activity Total Care Minimal to Full or Drowsy;
Extensive Disease Sips +/- Confusion
10% Totally Bed Bound Unable to do Any Activity Total Care Mouth Care Drowsy or Coma;
Extensive Disease Only +/- Confusion
0%
PPS Score Level:
Palliative Performance Score Response
Palliative Performance Score Response: 50%
Physical Exam
-
Neuro: Awake and Alert
Psych: Calm and Intact Judgement/Insight
Assessment / Plan
-
Assessment/Plan:
Discussed hospice care and DNR code status
Reached out to his maintainer central office as patient would like to know about his prognosis and if hospice would be appropriate at this stage
patient plans to speak to hospice privately before discussing with family.
total floor time 40 mins
[2024-04-30 13:51] LABS: NT-proBNP 3650 pg/ml
[2024-04-30] MEDS: LASIX 40 MG IV (15:09)
--- NOTE | 2024-04-30 15:12 | CM ---
Chart reviewed for d/c planning. Per chart, pt still requires 15 L O2, 6L is his baseline. Pt is hospice appropriate
Palliative care consulted. Per assessment, pt would like more information about hospice and to discuss w/ his family before deciding.
cycle liaison, Carey, met w/ pt to provide hospice information, information was given to pt to further assist in his decision making.
Plan: Possible hospice. CM will cont to follow for d/c needs
[2024-04-30 15:26] VITALS: BP 105/64
[2024-04-30] MEDS: LOPRESSOR 5 MG IV (16:52)
[2024-04-30 19:42] VITALS: BP 96/60
[2024-04-30] MEDS: AFRIN NASAL SPRAY NASAL (19:45)
[2024-04-30] MEDS: PROSCAR 5 MG PO (21:31)
[2024-04-30] MEDS: LIPITOR 10 MG PO (21:31)
[2024-04-30 23:39] VITALS: BP 100/66
[2024-05-01 03:23] VITALS: BP 92/62
[2024-05-01 06:00] VITALS: BMI 24.6
[2024-05-01 06:52] LABS: Hemoglobin 8.3 g/dL (13.0-18.0); Mean Corp Hgb Conc. 30.7 g/dL (33.0-37.0); Mean Corpuscular Hgb 30.9 pg (27.0-31.0); Mean Corpuscular Volume 100.4 fL (80.0-94.0); Mean Platelet Volume 9.7 fL (7.4-10.4); Platelet Count 261 10^3/uL (130-400); Red Blood Cell Count 2.69 10^6/uL (4.70-6.10); Red Cell Dist. Width 16.1 % (11.5-14.5); White Blood Cell Count 9.2 10^3/uL (4.8-10.8)
[2024-05-01 07:26] LABS: Blood Urea Nitrogen 59 mg/dl (9-20); Calcium 8.4 mg/dl (8.4-10.2); Carbon Dioxide 34 mmol/L (22-30); Chloride 98 mmol/L (98-107); Estimated Creatinine Clearance 42 ml/min; Glucose 167 mg/dl (70-99); Magnesium 2.2 mg/dl (1.6-2.3); Potassium 4.1 mmol/L (3.5-5.1); Sodium 137 mmol/L (135-145); eGFR 48.95
[2024-05-01 07:40] VITALS: BP 106/71
[2024-05-01] MEDS: XOPENEX 1.25 MG INHALANT SOLUTION INH ×3 (08:10→20:18)
[2024-05-01] MEDS: ATROVENT NEBULES 0.5 MG INH ×3 (08:11→20:18)
[2024-05-01] MEDS: AFRIN NASAL SPRAY 1 SPRAYS NASAL ×2 (09:01→19:37)
[2024-05-01] MEDS: MUCINEX 600 MG PO ×2 (09:01→19:35)
[2024-05-01] MEDS: ELIQUIS 5 MG PO ×2 (09:02→19:35)
[2024-05-01] MEDS: TIKOSYN 250 MCG PO ×2 (09:02→19:35)
[2024-05-01] MEDS: VIBRAMYCIN 100 MG PO ×2 (09:02→19:35)
[2024-05-01] MEDS: LASIX 40 MG IV (09:02)
[2024-05-01] MEDS: DAPSONE 50 MG PO ×2 (09:02→19:35)
[2024-05-01] MEDS: TOPROL XL PO (09:02)
[2024-05-01] MEDS: SOLU-MEDROL PF 40 MG IV ×4 (09:02→23:54)
[2024-05-01] MEDS: ROCEPHIN 1000 MG IV (09:03)
[2024-05-01] MEDS: PROTONIX 40 MG PO (09:03)
[2024-05-01] MEDS: STERILE WATER FOR INJECTION 10 ML IV (09:03)
--- NOTE | 2024-05-01 09:09 | W.PN.HOSP.TC ---
Today's Communication/Plan
-
Change code status to DNR
Assessment / Plan
Assessment / Plan
88yo M with PMHX of ILD with chronic respiratory failure on up to 10L home O2, Afib on ELiquis, s/p bioprosthetic valve, bladder cancer s/p resection with metastatic disease BPH, GERD and HLD came with worsening hypoxia, managed for CHF
exacerbation, superiposed on possible ILD and cannot exclude CAP. Hemoptysis and increased cough at home. Also was titrating down Prednisone at home after recent hospitalization, currently on 20mg
A/P:
#Acute on chronic hypoxic respiratory failure
Currently requiring 12 L of oxygen, down from 14-15 L, he wears 6 L at baseline
Multifactorial, due to his progressive ILD, CHF, and possible pneumonia
Patient has been informed today and multiple times that he is hospice appropriate, and recommend DNR
Palliative care following
Patient has agreed to DNR status on 05/01
#Acute heart failure with a preserved ejection fraction
Appreciate cardiology input, patient's hypoxemia is due to his ILD and pneumonia
Cardiology recommends continuing IV Lasix for now
#Acute ILD flare
Appreciate pulmonology input, continue IV steroids
#Possible multifocal pneumonia with reactive mediastinal lympadenopathy
Appreciate pulmonology input, continue Rocephin/Doxy, bronchodilators, mucolytics, antitussives
#JUAN on CKD stage 3a
Monitor
#Afib, paroxysmal with intermittent rapid ventricular
Continue Tikosyn, Eliquis
Unable to increase Toprol XL secondary to soft blood pressures
Changed bronchodilators to Xopenex
IV metoprolol as needed
#Metastatic bladder CA previously on Keytruda, now on no chemo
#HLD
cont home meds
#Anemia, macrocytic with elevated retics
#Hemoptysis (minimal, streaks of blood with cough)
Elevated LDH, f/u haptoglobin, Kam
DVT ppx - eliquis
Full code
Total time spent to see the patient on the floor, examine the patient, review data and lab results, discuss treatment plan with patient, nursing staff around 50 minutes.
Physical Exam
General: Appears chronically ill, no acute distress
HEENT: Normocephalic, Atraumatic, EOMI, MMM
Respiratory: Bibasilar crackles
Cardiac: Normal S1/S2, Regular Rate and Rhythm
GI: Soft, Nontender, Nondistended, Normal Bowel Sounds
Extremities: No Clubbing, Cyanosis, or Edema
Neuro: Nonfocal/Grossly Intact
Psych: Calm, Cooperative
Derm: No Visible lesions
Anticipated Discharge: > 48 hours
Subjective/Interval History
-
Date of Service: May 01, 2024
Patient's breathing is unchanged, he is still short of breath with any type of movement. His cough is worse. No fever, no vomiting.
Objective Data
-
Labs:
Laboratory Results
05/01/24
05:28
WBC 9.2
Hgb 8.3 L
Hct 27.0 L
Plt Count 261
Sodium 137
Potassium 4.1
Chloride 98
Carbon Dioxide 34 H
BUN 59 H
Creatinine 1.4 H
Glucose 167 H
Calcium 8.4
Vital Signs:
Vital Signs
Temp Pulse Resp BP Pulse Ox
98.1 F 90 20 106/71 94
05/01/24 07:40 05/01/24 08:13 05/01/24 08:13 05/01/24 07:40 05/01/24 08:13
I&O
04/30/24 05/01/24 05/02/24
06:59 06:59 06:59
Intake Total 1200 / 1200 1440 / 1440 240 / 240
Output Total 2200 / 2200 1900 / 1900
Balance -1000 / -1000 -460 / -460 240 / 240
--- NOTE | 2024-05-01 09:16 | W.PN.PUL3 ---
Today's Communication / Plan
-
Prolonged discussion re: hospice, all questions answered
He has decided on DNR status
Remains on 13-15L, slow to little progress
Remains on IV treatments, unchanged
Await further decision making
Assessment
-
88-year-old man with complicated past medical history noted. Admitted with 24 hours of worsening shortness of breath and hypoxemia. Required up to 10 L of supplemental oxygen at home. Not improving night.
CT scan showed bilateral pleural effusions, increased interstitial markings on top of underlying pulmonary fibrosis/ILD-increased proBNP suggestive of heart failure.
Acute on chronic hypoxemic respiratory failure requiring up to 10 L usually on 6 L-acute on chronic heart failure with preserved ejection fraction
CT chest:Bilateral interstitial and airspace opacities appear increased compared to the chest CT from 01/25/2024. A component of pulmonary edema is suspected given the presence of small bilateral pleural effusions. Findings are superimposed upon
chronic fibrosis (UIP interstitial lung disease). Pneumonia is not definitively excluded and clinical correlation is recommended.
Mediastinal lymphadenopathy, favored to be reactive.
proBNP 2590. Highest historically.
Conditions present prior to admission:
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 Faustin.
Chronic hypoxemia
Maintained on 3 L/min with sleep and 2.5-3 L/min with rest/activity, recently increased to 6 L/min [id number] including sleep.
Moderate RLD
Ankit 09/26/2023--FVC: 2.63 L / 57%, TLC 66% predicted, DLCO 33%
Recent dosed on hospitalization 02/18/2024-interstitial lung disease flare, infection, CHF-discharged and admitted [facility] for couple days-additional antibiotics
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
CHF preserved EF/Diastolic CHF.
Chronic anemia
PAF/ablation x 3/failed sotalol/cardioversion.
Chronic kidney disease.
Nephrolithiasis.
BPH.
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
Left ureterectomy.
Hernia repair.
Port placement.
Plan:
Currently 92% on 14-15L
BL use of O2 at home up to 6L
Suspect clinical picture consistent with acute on chronic heart failure with preserved ejection fraction on top of underlying interstitial lung disease.
Currently without leukocytosis or fevers.
-
Not unreasonable to keep antibiotics for now as it is difficult to rule out based on prior underlying pulmonary disease
Currently on ceftriaxone/doxycycline -patient is immunosuppressed on long-term prednisone.
Afebrile; no leukocytosis
Procalcitonin not elevated
Influenza negative
COVID-negative
Patient is on prednisone long-term: PJP a possibility but I suspect less likely. Will continue to watch closely.
Continue dapsone
Consider stopping abx due to neg PCT
Repeat CXR obtained today appears slightly improved
Patient place of patient placed on IV corticosteroids 40 mg IV every 8 hours Solu-Medrol
Have not been able to taper due to lack of improvement
Will be an ongoing discussion
CRP elevated
proBNP 2500, CT more c/w edema
ECHO with stage 3 DD, moderate PH (worsened from prior ECHO)
Currently on lasix IV BID
-
Bronchodilators for secretion clearance. Not bronchospastic.
-
Cardiology correspondence reviewed
Continue diuresis IV.
Follow renal function and electrolytes
-
DVT prophylaxis-patient on antibiotics.
Pall care consult obtained, code status to be addressed
Prolonged discussion today in regards to hospice with each member of the care team 1:1 with the patient
Would be appropriate to consider hospice if home option if available. He seemed receptive to the discussion
He has decided on DNR status
Will await further decision making by patient, all questions answered
Diagnostic Data
CT Chest 2/8/25-Bilateral interstitial and airspace opacities appear increased compared to the chest CT from 01/25/2024. A component of pulmonary edema is suspected given the presence of small bilateral pleural effusions. Findings are superimposed
upon chronic fibrosis (UIP interstitial lung disease). Pneumonia is not definitively excluded and clinical correlation is recommended. Mediastinal lymphadenopathy, favored to be reactive.
CT Chest 01/25/24- CT findings suggesting scattered foci of acute pneumonitis superimposed on chronic changes of interstitial lung disease. No significant pleural effusions are identified. These CT findings are not considered highly suggestive of a
superimposed component of pulmonary edema. Rounded focus of increased density within the lingula, similar size to previous CT, but now having air bronchograms. The visualization of air bronchograms suggested this is most likely a focal area of
atelectasis and/or scarring rather than neoplasia, but continued follow-up is advised. 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 Slight dilation of the ascending aorta superior to the graft, short axis
diameter 4.4 cm, stable from prior examination.
Chest x-ray 02/16/2021-NAD
Chest x-ray 09/08/2023-moderate CHF
Chest x-ray 09/19/2023-stable interstitial and airspace opacifications
Chest x-ray 12/08/2023-bilateral interstitial opacifications suspecting chronic interstitial lung disease
Chest x-ray 01/18/2024-left lower lobe pneumonia superimposed on chronic interstitial infiltrates
Chest x-ray 02/09-bilateral pulmonary parenchymal opacifications with some improvement
Chest x-ray 02/17/2024-bilateral parenchymal opacifications slightly progressed in the left lung and in the right lower lung possibly minimal superimposed alveolar component, at least a component of findings may be chronic
Chest x-ray 03/06/2024-findings suspicious for mild left lung base pneumonia
CT chest 05/03/2021-no significant acute abnormalities, 2 adjacent solid nodules measuring 7 mm not changed since [address]
CT abdomen/-small filling defects within the left renal pelvis suspicious for upper urinary tract malignancy, lung bases subsegmental atelectasis
CT abdomen and pelvis 02/06/2023-nonobstructing right renal stone, lung bases are clear
CT abdomen and pelvis 08/06/2023-lung bases minimal bilateral pleural effusions, interstitial edema in the lung bases, post left nephrectomy, nonobstructing right nephrolithiasis
CT chest 09/12/2023-widespread prominence of pulmonary interstitium and new widespread areas of groundglass opacifications, mild mediastinal lymphadenopathy
CT chest 11/27/2023-oblong left upper lobe mass measuring 3.[address] chest 01/25/2024-scattered foci of acute pneumonitis superimposed on chronic changes of interstitial lung disease
PET scan 11/14/2023-activity seen in presumed urinary bladder/prostate defect from prior surgery likely physiologic, mild FDG uptake lesion upper lobe of the lung, minimal FDG uptake lower lobes of the lungs likely inflammatory
Echocardiogram 01/21/24-EF 59%, stage III diastolic dysfunction, well-seated number 23 mm aortic valve, PA systolic 35-40
ECHO 04/28/24- Normal left ventricular size and systolic function. No regional wall motion abnormalities are seen. LV ejection fraction is 60-65% by visual assessment. Moderate concentric left ventricular hypertrophy. Diastolic function
indeterminate. Structurally normal mitral valve. Mitral valve opens normally. Mild mitral regurgitation. Indexed LA volume is severely abnormal (> 48 mL/m2). #23 stentless freestyle aortic valve. Peak/mean gradients are 36/20 mmHg. Trace aortic
regurgitation is seen. Structurally normal tricuspid valve. Tricuspid valve opens normally. Moderate tricuspid regurgitation. Estimated pulmonary artery pressure of 65 mmHg. Assuming a right atrial pressure of 8 mmHg. Since echocardiogram January
2023, mean pressure gradient across aortic valve prosthesis is increased from 11 mmHg to 20 mmHg. PA systolic pressures increased from 35-40 mmHg to 65 mmHg.
Reports and relevant images were personally reviewed.
Total time spent on this encounter __55__ minutes which includes review of history, physical exam, medications, laboratory data, personal review of imaging, extensive review of outpatient records, discussion with care team and respiratory therapy.
Subjective Data
-
Date of Service:
Date of Service: May 01, 2024
Chief Complaint: Pulmonary Follow Up
Subjective:
Remains on O2, weaned to 13L
No significant changes in his condition overall
Objective Data
Data Reviewed
Vital Signs / I&O / Oxygen:
Vital Signs
Temp Pulse Resp BP Pulse Ox
98.1 F 90 20 106/71 94
05/01/24 07:40 05/01/24 08:13 05/01/24 08:13 05/01/24 07:40 05/01/24 08:13
Intake and Output
04/30/24 05/01/24 05/02/24
06:59 06:59 06:59
Intake Total 1200 / 1200 1440 / 1440 240 / 240
Output Total 2200 / 2200 1900 / 1900
Balance -1000 / -1000 -460 / -460 240 / 240
SaO2 94
Nasal Cannula flow liters per 14
minute
Physical Exam
General: Comfortable and Other (NAD)
HEENT: Normocephalic, Anicteric and Moist Mucous Membranes
Cardiovascular: S1-S2 and Regular Rhythm
Respiratory: Crackles and Non-Labored Respirations
GI: Soft, Non Distended and Non Tender
Neurology: Awake, Alert, Oriented and No Motor Deficits
Skin: Warm and Good Color
Labs/Micro/Reports
Lab Data
05/01/24 05:28
05/01/24 05:28
Microbiology
04/30/24 08:43 Sputum Respiratory Culture - Final
04/30/24 08:43 Sputum Gram Stain - Final
--- NOTE | 2024-05-01 11:55 | W.PN.PAL2 ---
Today's Communication
-
Met with patient at bedside. Visit time 30 mins.
Patient reports breathing is stable at rest, but becomes very short of breath with a few steps.
He met with hospice yesterday. and had his questions answered
He asked about prognosis - between his cancer (which he has opted not to treat) ild, cardiac, he is appropriate for hospice care with a likely prognosis of less than 6 months, likely even less. he had multiple hospitalizations in the past two
months, and is still on [address] Faustin was able to speak with patient's , provided update on his condition and recommendation of hospice. unfortunately patient did not picker tender phone when he had called so did not hear the information first hand. Dr. Ferguson joined
during my visit and spent time with the patient to review this with him this morning
Patient also wishes to know what the maximum oxygen concentration in the home would be - he is planning to check with the [employer] to find out.
At this time while he is still leaning towards hospice, he has yet to have the conversation with his family about his decision.
Addendum: after conversation wtih Dr. Ferguson/ Do - patient agreeable to change code status to DNR
Objective Data
-
Objective Data:
Vital Signs
Temp Pulse Resp BP Pulse Ox
98.1 F 90 20 106/71 94
05/01/24 07:40 05/01/24 08:13 05/01/24 08:13 05/01/24 07:40 05/01/24 08:13
Laboratory Results
05/01/24 05:28
05/01/24 05:28
Total Protein 5.6 g/dl (6.3-8.2) L 04/28/24 05:05
Albumin 3.5 g/dl (3.5-5.0) 04/28/24 05:05
Palliative Performance Scale
Palliative Performance Scale:
PPS Level Ambulation Activity & Evidence of Disease Self Care Intake Conscious Level
100% Full Normal Activity & Work; Full Intake Full
No Evidence of Disease
90% Full Normal Activity & Work; Full Normal Full
Some Evidence of Disease
80% Full Normal Activity with Effort Full Normal or Full
Some Evidence of Disease Reduced
70% Reduced Unable Normal Job/Work Full Normal or Full
Significant Disease Reduced
60% Reduced Unable Hobby/Housework Occasional Normal or Full or Confusion
Significant Disease Assistance Reduced
50% Mainly Sit/Lie Unable to do Any Work Considerable Normal or Full or Confusion
Extensive Disease Assistance Req'd Reduced
40% Mainly in Bed Unable to do Most Activity Mainly Assistance Normal or Full or Drowsy;
Extensive Disease Reduced +/- Confusion
30% Totally Bed Unable to do Any Activity Total Care Normal or Full or Drowsy;
Bound Extensive Disease Reduced +/- Confusion
20% Totally Bed Bound Unable to do Any Activity Total Care Minimal to Full or Drowsy;
Extensive Disease Sips +/- Confusion
10% Totally Bed Bound Unable to do Any Activity Total Care Mouth Care Drowsy or Coma;
Extensive Disease Only +/- Confusion
0%
PPS Score Level:
Palliative Performance Score Response
Palliative Performance Score Response: 50%
Physical Exam
-
Neuro: Awake and Alert
Psych: Calm
[2024-05-01 11:56] VITALS: BP 105/72
[2024-05-01 14:36] VITALS: BP 100/62
--- NOTE | 2024-05-01 18:45 | W.PN.CARDCBS ---
Today's Communication / Plan
-
Hold Lasix and consider transition to oral Lasix in the morning
Impression / Plan
-
PCP: Brant Kruse MD
Primary Trial Management Associate: Dr. Tomi Ring
Primary Bed And Breakfast Operator: Dr. Holly Dixon at [place]
Impression:
Presentation with SOB and worsening hypoxia
Acute HFpEF
Paroxysmal afib/aflutter/atach
s/p PVI 10/08/2019
s/p PVI, posterior wall ablation, mitral annular flutter ablation 11/17/2020
s/p posterior L atrial wall ablation, right atrial tachycardia ablation 06/30/2021
Failed sotalol
Chronic amiodarone therapy from 01/2022 until 09/12/23, stopped due to amio lung toxicity
s/p [employer] loop recorder 11/15/23
s/p complex ablation of 3 left atrial tachycardias and 2 right atrial tachycardias and SVT 01/16/2024
A-fib recurrence 01/17/2024 status post successful cardioversion in ER
s/p Left Atach and Right Atach ablations 01/16/24
Tikosyn loading 01/19/24
Chronic anticoagulation with Eliquis
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
Bladder cancer s/p L robotic nephroureterectomy 09/20/2022, multiple TURBTs with new bladder tumors s/p resection
New metastatic disease to lung, started PadCev 12/19/23 weekly with Keytruda q 21 days first dose 12/19/23, also prednisone and bactrim m,w,f
h/o nephrolithiasis with stone removal and stent placement
Chronic renal insufficiency
h/o aortic valve replacement 2007
HLD
BPH
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
Echo 09/05/23: EF 60 to 65%, stage III diastolic dysfunction, mild concentric LVH, dilated RV, severely dilated atria, mild to moderate MR, well-seated #23 AVR with peak/mean gradients 10/5 mmHg, moderate TR, PAP 57 mmHg
Echo 01/21/24: EF 59%, mild concentric LVH, stage III diastolic dysfunction, normal RV size and function, well-seated tissue AVR peak/mean 23/11 mmHg without aortic regurgitation, mild to moderate TR with PAP 35 to 40 mmHg
Plan:
88-year-old medically complex gentleman with hypoxic respiratory failure on high flow O2 secondary to pulmonary fibrosis/ILD
-Pulmonary following. Currently still requiring 15 L mid flow O2 with home oxygen usually 6 L
-Volume status difficult to ascertain with proBNP increased since admission however clinically appears on the impregnator and drier side and creatinine is increased
-Will hold Lasix tomorrow and reassess; consider transition back to oral Lasix if creatinine is stable
-Palliative care consult reviewed
-Patient with known paroxysmal Afib and last ablation was an Atach ablation 01/16/24.
-Outpatient dose of Toprol XL 25 mg daily has been continued, cannot increase dose due to intermittent hypotension.
-Outpatient dose of Tikosyn 250 mcg q 12 hours has been continued. QTc was 477 ms on ECG 04/26/24. Recheck ECG in AM to assure stable QT.
-Outpatient dose of Eliquis 5 mg BID (age 88, Cre 1.4, wt 83.574) has been continued.
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
Progress Note - Trial Management Associate
Subjective
Date of Service: May 01, 2024
Seen and examined. Still short of breath and weak with minimal activity. No chest pain or pressure.
Objective
Labs:
05/01/24 05:28
05/01/24 05:28
Labs
Hgb 8.3 g/dL (13.0-18.0) L 05/01/24 05:28
Hct 27.0 % (39.0-52.0) L 05/01/24 05:28
Plt Count 261 10^3/uL (130-400) 05/01/24 05:28
Sodium 137 mmol/L (135-145) 05/01/24 05:28
Potassium 4.1 mmol/L (3.5-5.1) 05/01/24 05:28
BUN 59 mg/dl (9-20) H 05/01/24 05:28
Creatinine 1.4 mg/dL (0.7-1.3) H 05/01/24 05:28
Glucose 167 mg/dl (70-99) H 05/01/24 05:28
Vital Signs and I&O:
Vital Signs
Temp Pulse Resp BP Pulse Ox
97.7 F 96 18 100/62 95
05/01/24 14:36 05/01/24 14:36 05/01/24 14:36 05/01/24 14:36 05/01/24 13:44
Vital Signs
Temp Pulse Resp BP Pulse Ox
97.7 F 96 18 100/62 95
05/01/24 14:36 05/01/24 14:36 05/01/24 14:36 05/01/24 14:36 05/01/24 13:44
Intake & Output
04/29/24 04/30/24 05/01/24 05/02/24
06:59 06:59 06:59 06:59
Intake Total 1320 / 1320 1200 / 1200 1440 / 1440 480 / 480
Output Total 350 / 350 2200 / 2200 1900 / 1900 1100 / 1100
Balance 970 / 970 -1000 / -1000 -460 / -460 -620 / -620
Physical Exam
Physical Exam
GEN: AAO x3
LUNGS: Wearing oxygen at 15 L midflow. Bronchovesicular breath sounds decreased without wheezes.
CV: Regular. Positive S1-S2. 3/6 systolic murmur.
Abdomen: Soft, nontender positive bowel sounds
Extremities: No edema
NEURO: Gross non-focal
[2024-05-01 19:25] VITALS: BP 83/64
[2024-05-01] MEDS: LIPITOR 10 MG PO (21:14)
[2024-05-01] MEDS: PROSCAR 5 MG PO (21:14)
[2024-05-01 23:15] VITALS: BP 91/64
--- NOTE | 2024-05-02 02:10 | PTCARENOTE ---
05/01/24 approximately 20:30 pt had small episode of V-tach. Pt assessed, so c/o chest pain, pt states it happens when he moves around, but does not have any signs or symptoms. BANK VAULT CLERK aware, no new orders at this time. No further episodes of V-tach
noted.
[2024-05-02 03:15] VITALS: BP 99/66
[2024-05-02 06:00] VITALS: BMI 24.3
[2024-05-02] MEDS: XOPENEX 1.25 MG INHALANT SOLUTION INH ×3 (07:12→19:41)
[2024-05-02] MEDS: ATROVENT NEBULES 0.5 MG INH ×3 (07:12→19:41)
[2024-05-02 07:20] VITALS: BP 113/85
[2024-05-02 08:27] LABS: Hematocrit 29.2 % (39.0-52.0); Mean Corp Hgb Conc. 30.8 g/dL (33.0-37.0); Mean Corpuscular Hgb 30.9 pg (27.0-31.0); Mean Corpuscular Volume 100.3 fL (80.0-94.0); Mean Platelet Volume 9.7 fL (7.4-10.4); Platelet Count 263 10^3/uL (130-400); Red Blood Cell Count 2.91 10^6/uL (4.70-6.10); Red Cell Dist. Width 16.2 % (11.5-14.5); White Blood Cell Count 10.3 10^3/uL (4.8-10.8)
[2024-05-02] MEDS: TIKOSYN 250 MCG PO ×2 (08:33→20:56)
[2024-05-02] MEDS: PROTONIX 40 MG PO (08:33)
[2024-05-02] MEDS: VIBRAMYCIN 100 MG PO ×2 (08:33→20:56)
[2024-05-02] MEDS: DAPSONE 50 MG PO ×2 (08:33→20:56)
[2024-05-02] MEDS: ELIQUIS 5 MG PO ×2 (08:34→20:57)
[2024-05-02] MEDS: TOPROL XL 25 MG PO (08:34)
[2024-05-02] MEDS: SOLU-MEDROL PF 40 MG IV ×3 (08:34→23:56)
[2024-05-02] MEDS: MUCINEX 600 MG PO ×2 (08:34→20:56)
[2024-05-02] MEDS: STERILE WATER FOR INJECTION 10 ML IV (08:35)
[2024-05-02] MEDS: ROCEPHIN 1000 MG IV (08:35)
[2024-05-02] MEDS: AFRIN NASAL SPRAY 30 SPRAYS NASAL (08:48)
[2024-05-02 09:01] LABS: Blood Urea Nitrogen 55 mg/dl (9-20); Carbon Dioxide 33 mmol/L (22-30); Chloride 99 mmol/L (98-107); Estimated Creatinine Clearance 45 ml/min
--- NOTE | 2024-05-02 09:09 | W.PN.HOSP.TC ---
Today's Communication/Plan
-
Continue goals of care discussions
Assessment / Plan
Assessment / Plan
88yo M with PMHX of ILD with chronic respiratory failure on up to 10L home O2, Afib on ELiquis, s/p bioprosthetic valve, bladder cancer s/p resection with metastatic disease BPH, GERD and HLD came with worsening hypoxia, managed for CHF
exacerbation, superiposed on possible ILD and cannot exclude CAP. Hemoptysis and increased cough at home. Also was titrating down Prednisone at home after recent hospitalization, currently on 20mg
A/P:
#Acute on chronic hypoxic respiratory failure
Currently requiring 11 L of oxygen, down from 14-15 L, he wears 6 L at baseline
Multifactorial, due to his progressive ILD, CHF, and possible pneumonia
Patient has been informed today and multiple times that he is hospice appropriate, and recommend DNR
Palliative care following. Patient has agreed to DNR status on 05/01
Continue goals of care discussions
#Acute heart failure with a preserved ejection fraction
Appreciate cardiology input, patient's hypoxemia is due to his ILD and pneumonia
Patient is down 3.7 kg on IV Lasix
Cardiology recommends holding IV Lasix for now
#Acute ILD flare
Appreciate pulmonology input, continue IV steroids
#Possible multifocal pneumonia with reactive mediastinal lympadenopathy
Appreciate pulmonology input, continue Rocephin/Doxy, bronchodilators, mucolytics, antitussives
#JUAN on CKD stage 3a
Monitor
#Afib, paroxysmal with intermittent rapid ventricular
#Nonsustained ventricular tachycardia
Continue Tikosyn, Eliquis
Unable to increase Toprol XL secondary to soft blood pressures
Changed bronchodilators to Xopenex
IV metoprolol as needed
#Metastatic bladder CA previously on Keytruda, now on no chemo
#HLD
Continue home meds
#Anemia, macrocytic with elevated retics
#Hemoptysis (minimal, streaks of blood with cough)
Elevated LDH
Seen by hematology, suspect worsening anemia is due to dapsone
DVT ppx - eliquis
Full code
Total time spent to see the patient on the floor, examine the patient, review data and lab results, discuss treatment plan with patient, nursing staff around 51 minutes.
Physical Exam
General: Appears chronically ill, no acute distress
HEENT: Normocephalic, Atraumatic, EOMI, MMM
Respiratory: Bibasilar crackles
Cardiac: Normal S1/S2, Regular Rate and Rhythm
GI: Soft, Nontender, Nondistended, Normal Bowel Sounds
Extremities: No Clubbing, Cyanosis, or Edema
Neuro: Nonfocal/Grossly Intact
Psych: Calm, Cooperative
Anticipated Discharge: > 48 hours
Subjective/Interval History
-
Date of Service: May 02, 2024
Patient continues to have severe dyspnea with activity. No chest pain, no vomiting. No fever.
Objective Data
-
Labs:
Laboratory Results
05/02/24
08:03
WBC 10.3
Hgb 9.0 L
Hct 29.2 L
Plt Count 263
Sodium Pending
Potassium Pending
Chloride 99
Carbon Dioxide 33 H
BUN 55 H
Creatinine 1.3
Glucose Pending
Calcium 9.0
Vital Signs:
Vital Signs
Temp Pulse Resp BP Pulse Ox
97.5 F 89 24 113/85 97
05/02/24 07:20 05/02/24 08:34 05/02/24 07:20 05/02/24 08:34 05/02/24 07:20
I&O
05/01/24 05/02/24 05/03/24
06:59 06:59 06:59
Intake Total 1440 / 1440 1260 / 1260
Output Total 1900 / 1900 1900 / 1900
Balance -460 / -460 -640 / -640
[2024-05-02 09:14] LABS: Glucose 188 mg/dl (70-99); Sodium 137 mmol/L (135-145)
--- NOTE | 2024-05-02 09:23 | W.PN.PUL3 ---
Addendum entered and electronically signed by Mildred Fergusno DO 05/02/24 16:24:
Signed onto hospice per team
Plan for d/c home on Sunday
We will sign off at this time, pls reach out for questions
Original Note:
Today's Communication / Plan
-
Remains on 12L NC, this has been slowly weaning down
He seems most interested in going home on hospice but was waiting for his mtg with RN to review his questions/expectations
He feels very appreciative with care teams time in answering all of his questions
He is likely to sign onto hospice pending mtg, we will sign off upon that formal decision making
Defer to care team for d/c planning once finalized
Assessment
-
88-year-old man with complicated past medical history noted. Admitted with 24 hours of worsening shortness of breath and hypoxemia. Required up to 10 L of supplemental oxygen at home. Not improving night.
CT scan showed bilateral pleural effusions, increased interstitial markings on top of underlying pulmonary fibrosis/ILD-increased proBNP suggestive of heart failure.
Acute on chronic hypoxemic respiratory failure requiring up to 10 L usually on 6 L-acute on chronic heart failure with preserved ejection fraction
CT chest:Bilateral interstitial and airspace opacities appear increased compared to the chest CT from 01/25/2024. A component of pulmonary edema is suspected given the presence of small bilateral pleural effusions. Findings are superimposed upon
chronic fibrosis (UIP interstitial lung disease). Pneumonia is not definitively excluded and clinical correlation is recommended.
Mediastinal lymphadenopathy, favored to be reactive.
proBNP 2590. Highest historically.
Conditions present prior to admission:
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 Faustin.
Chronic hypoxemia
Maintained on 3 L/min with sleep and 2.5-3 L/min with rest/activity, recently increased to 6 L/min [id number] including sleep.
Moderate RLD
[place] 09/26/2023--FVC: 2.63 L / 57%, TLC 66% predicted, DLCO 33%
Recent dosed on hospitalization 02/18/2024-interstitial lung disease flare, infection, CHF-discharged and admitted [facility] for couple days-additional antibiotics
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
CHF preserved EF/Diastolic CHF.
Chronic anemia
PAF/ablation x 3/failed sotalol/cardioversion.
Chronic kidney disease.
Nephrolithiasis.
BPH.
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
Left ureterectomy.
Hernia repair.
Port placement.
Plan:
Currently 92% on 14-15L
BL use of O2 at home up to 6L
Suspect clinical picture consistent with acute on chronic heart failure with preserved ejection fraction on top of underlying interstitial lung disease.
Currently without leukocytosis or fevers.
-
Not unreasonable to keep antibiotics for now as it is difficult to rule out based on prior underlying pulmonary disease
Currently on ceftriaxone/doxycycline -patient is immunosuppressed on long-term prednisone.
Afebrile; no leukocytosis
Procalcitonin not elevated
Influenza negative
COVID-negative
Patient is on prednisone long-term: PJP a possibility but I suspect less likely. Will continue to watch closely.
Continue dapsone
Consider stopping abx due to neg PCT
Repeat CXR obtained today appears slightly improved
Patient place of patient placed on IV corticosteroids 40 mg IV every 8 hours Solu-Medrol
Have not been able to taper due to lack of improvement
Will be an ongoing discussion
CRP elevated
proBNP 2500, CT more c/w edema
ECHO with stage 3 DD, moderate PH (worsened from prior ECHO)
Currently on lasix IV BID
-
Bronchodilators for secretion clearance. Not bronchospastic.
-
Cardiology correspondence reviewed
Continue diuresis IV.
Follow renal function and electrolytes
-
DVT prophylaxis-patient on antibiotics.
Pall care consult obtained, code status to be addressed
Prolonged discussion today in regards to hospice with each member of the care team 1:1 with the patient
Would be appropriate to consider hospice if home option if available. He seemed receptive to the discussion
He has decided on DNR status
Will await further decision making by patient, all questions answered
Diagnostic Data
CT Chest 04/26/24-Bilateral interstitial and airspace opacities appear increased compared to the chest CT from 01/25/2024. A component of pulmonary edema is suspected given the presence of small bilateral pleural effusions. Findings are superimposed
upon chronic fibrosis (UIP interstitial lung disease). Pneumonia is not definitively excluded and clinical correlation is recommended. Mediastinal lymphadenopathy, favored to be reactive.
CT Chest 01/25/24- CT findings suggesting scattered foci of acute pneumonitis superimposed on chronic changes of interstitial lung disease. No significant pleural effusions are identified. These CT findings are not considered highly suggestive of a
superimposed component of pulmonary edema. Rounded focus of increased density within the lingula, similar size to previous CT, but now having air bronchograms. The visualization of air bronchograms suggested this is most likely a focal area of
atelectasis and/or scarring rather than neoplasia, but continued follow-up is advised. 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 Slight dilation of the ascending aorta superior to the graft, short axis
diameter 4.4 cm, stable from prior examination.
Chest x-ray 02/16/2021-NAD
Chest x-ray 09/08/2023-moderate CHF
Chest x-ray 09/19/2023-stable interstitial and airspace opacifications
Chest x-ray 12/08/2023-bilateral interstitial opacifications suspecting chronic interstitial lung disease
Chest x-ray 01/18/2024-left lower lobe pneumonia superimposed on chronic interstitial infiltrates
Chest x-ray 02/09-bilateral pulmonary parenchymal opacifications with some improvement
Chest x-ray 02/17/2024-bilateral parenchymal opacifications slightly progressed in the left lung and in the right lower lung possibly minimal superimposed alveolar component, at least a component of findings may be chronic
Chest x-ray 03/06/2024-findings suspicious for mild left lung base pneumonia
CT chest 05/03/2021-no significant acute abnormalities, 2 adjacent solid nodules measuring 7 mm not changed since 2019
CT abdomen-small filling defects within the left renal pelvis suspicious for upper urinary tract malignancy, lung bases subsegmental atelectasis
CT abdomen and pelvis 02/06/2023-nonobstructing right renal stone, lung bases are clear
CT abdomen and pelvis 08/06/2023-lung bases minimal bilateral pleural effusions, interstitial edema in the lung bases, post left nephrectomy, nonobstructing right nephrolithiasis
CT chest 09/12/2023-widespread prominence of pulmonary interstitium and new widespread areas of groundglass opacifications, mild mediastinal lymphadenopathy
CT chest 11/27/2023-oblong left upper lobe mass measuring 3.[address] chest 01/25/2024-scattered foci of acute pneumonitis superimposed on chronic changes of interstitial lung disease
PET scan 11/14/2023-activity seen in presumed urinary bladder/prostate defect from prior surgery likely physiologic, mild FDG uptake lesion upper lobe of the lung, minimal FDG uptake lower lobes of the lungs likely inflammatory
Echocardiogram 01/21/24-EF 59%, stage III diastolic dysfunction, well-seated number 23 mm aortic valve, PA systolic 35-40
ECHO 04/28/24- Normal left ventricular size and systolic function. No regional wall motion abnormalities are seen. LV ejection fraction is 60-65% by visual assessment. Moderate concentric left ventricular hypertrophy. Diastolic function
indeterminate. Structurally normal mitral valve. Mitral valve opens normally. Mild mitral regurgitation. Indexed LA volume is severely abnormal (> 48 mL/m2). #23 stentless freestyle aortic valve. Peak/mean gradients are 36/20 mmHg. Trace aortic
regurgitation is seen. Structurally normal tricuspid valve. Tricuspid valve opens normally. Moderate tricuspid regurgitation. Estimated pulmonary artery pressure of 65 mmHg. Assuming a right atrial pressure of 8 mmHg. Since echocardiogram January
2023, mean pressure gradient across aortic valve prosthesis is increased from 11 mmHg to 20 mmHg. PA systolic pressures increased from 35-40 mmHg to 65 mmHg.
Reports and relevant images were personally reviewed.
Total time spent on this encounter __45__ minutes which includes review of history, physical exam, medications, laboratory data, personal review of imaging, extensive review of outpatient records, discussion with care team and respiratory therapy.
Subjective Data
-
Date of Service:
Date of Service: May 02, 2024
Chief Complaint: Pulmonary Follow Up
Subjective:
Remains on 12L NC
He feels he wants to enroll into hospice but will await mtg with RN
Objective Data
Data Reviewed
Vital Signs / I&O / Oxygen:
Vital Signs
Temp Pulse Resp BP Pulse Ox
97.5 F 89 24 113/85 97
05/02/24 07:20 05/02/24 08:34 05/02/24 07:20 05/02/24 08:34 05/02/24 07:20
Intake and Output
05/01/24 05/02/24 05/03/24
06:59 06:59 06:59
Intake Total 1440 / 1440 1260 / 1260
Output Total 1900 / 1900 1900 / 1900
Balance -460 / -460 -640 / -640
SaO2 97
Nasal Cannula flow liters per 11
minute
Physical Exam
General: Comfortable and Other (NAD)
HEENT: Normocephalic, Anicteric and Moist Mucous Membranes
Cardiovascular: S1-S2 and Regular Rhythm
Respiratory: Crackles and Non-Labored Respirations
GI: Soft, Non Distended and Non Tender
Neurology: Awake, Alert, Oriented and No Motor Deficits
Skin: Warm and Good Color
Labs/Micro/Reports
Lab Data
05/02/24 08:03
05/02/24 08:03
Microbiology
04/30/24 08:43 Sputum Respiratory Culture - Final
04/30/24 08:43 Sputum Gram Stain - Final
--- NOTE | 2024-05-02 09:38 | W.PN.CARDCBS ---
Addendum entered and electronically signed by Juan Antonio Reynoso MD 05/02/24 16:45:
He is at rest, short of breath with minimal exertion
meds: Ceftriaxone, doxycycline, Atrovent, levobunolol, apixaban 5 mg twice daily, dofetilide 250 mg every 12, finasteride 5 mg at bedtime, metoprolol ER 25 mg daily, pantoprazole 40 mg a day, atorvastatin 10 mg a day, methylprednisolone 40 IV every
8, Mucinex, dapsone, Afrin, furosemide 40 mg IV daily
103/71, pulse 91, respiratory rate 22, afebrile, 94%, weight is 81.25 kg, -1 kg, weight was 92.9 kg on April, intake and output roughly even, he is relatively comfortable but short of breath moving outside the bed, dry crackles in lungs, regular
rate and rhythm, soft systolic murmur JVD okay, abdomen without distention, no significant edema
Telemetry: Bursts of atrial tachycardia, some nonsustained VT, QT interval appears okay
Echo 04/28/24: EF 60-65% moderate LVH, mild MR, bioprosthetic aortic valve, peak/mean gradients are 36 and 20, trace AI, moderate TR, pulm artery pressure 65, right atrial pressure 8
Impression: See below
Plan:
He has decided to transition to hospice.
From a cardiac standpoint, he seems relatively comfortable
No prolonged arrhythmias, dofetilide dosing as assessed by QT interval is currently acceptable despite CKD, for comfort would be reasonable to continue metoprolol and dofetilide
Apixaban can be discontinued from my standpoint, atorvastatin can be discontinued
Will likely resume furosemide if renal function permits for comfort, outpatient furosemide was 20 mg 5 days a week
Original Note:
Today's Communication / Plan
-
Lasix on hold, creat improving.
Likely can resume PO lasix in AM
Meeting w/ family and hospice this afternoon. Await decision.
Impression / Plan
-
PCP: Brant Kruse MD
Primary Clothes Wringer: Dr. Tomi Ring
Primary Turret Lathe Operator: Dr. Holly Dixon at [facility]
Impression:
Presented with SOB and worsening hypoxia
Acute HFpEF
Paroxysmal afib/aflutter/atach
s/p PVI 10/08/2019
s/p PVI, posterior wall ablation, mitral annular flutter ablation 11/17/2020
s/p posterior L atrial wall ablation, right atrial tachycardia ablation 06/30/2021
Failed sotalol
Chronic amiodarone therapy from 01/2022 until 09/12/23, stopped due to amio lung toxicity
s/p [employer] loop recorder 11/15/23
s/p complex ablation of 3 left atrial tachycardias and 2 right atrial tachycardias and SVT 01/16/2024
A-fib recurrence 01/17/2024 status post successful cardioversion in ER
s/p Left Atach and Right Atach ablations 01/16/24
Tikosyn loading 01/19/24
Chronic anticoagulation with Eliquis
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
Bladder cancer s/p L robotic nephroureterectomy 09/20/2022, multiple TURBTs with new bladder tumors s/p resection
New metastatic disease to lung, started PadCev 12/19/23 weekly with Keytruda q 21 days first dose 12/19/23, also prednisone and bactrim m,w,f
h/o nephrolithiasis with stone removal and stent placement
Chronic renal insufficiency
h/o aortic valve replacement 2007
HLD
BPH
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
Echo 09/05/23: EF 60 to 65%, stage III diastolic dysfunction, mild concentric LVH, dilated RV, severely dilated atria, mild to moderate MR, well-seated #23 AVR with peak/mean gradients 10/5 mmHg, moderate TR, PAP 57 mmHg
Echo 01/21/24: EF 59%, mild concentric LVH, stage III diastolic dysfunction, normal RV size and function, well-seated tissue AVR peak/mean 23/11 mmHg without aortic regurgitation, mild to moderate TR with PAP 35 to 40 mmHg
Plan:
-Presented with SOB and worsening hypoxia. He has known pulmonary fibrosis/ILD and typically is on 6L as OP.
-Remains on 11 L mid flow O2 05/02/2024. Feels no SOB while at rest, but does note increased SOB and tachycardia with even small amounts of exertion.
-Lasix held as patient appears dry w/ bump in creat on 05/01.
-Creat improving, down to 1.3 on 05/02. Likely can resume PO lasix in AM.
-Weight down to 179 lbs on 05/02. Down 8lbs this admission. ProBNP 3650.
-Known paroxysmal atrial fibrillation and atrial tachycardia w/ recent atach ablation 12/2023. In SR on tele, however there is an episode of tachycardia overnight for ~2 hrs.
-Continue Toprol, Tikosyn, and Eliquis.
-Palliative care following and there is consideration for hospice which would be appropriate. He reports there is a meeting w/ family and hospice this afternoon. Await decision.
HPI: 88-year-old man past medical history of interstitial lung disease on 6 L home O2, heart failure with preserved ejection fraction, persistent atrial fibrillation/flutter presenting with worsening of his baseline hypoxia. Previously admitted with
dehydration and Lasix dose was modified approximately 1 month ago. Patient tells me he called our office and was told to take his Lasix 5X weekly 20 mg. Reports some worsening of his lower extremity edema over the last several weeks as well as
weight gain. Tells me blood pressure has been marginal at home, largely running 90s/60s. Also reporting cough over the last several days. Cough is productive and he describes strands of mucus. No fevers.
Progress Note - Clothes Wringer
Subjective
Date of Service: May 02, 2024
No SOB at rest, but does note some SOB and tachycardia w/ exertion.
Objective
Labs:
05/02/24 08:03
05/02/24 08:03
Labs
Hgb 9.0 g/dL (13.0-18.0) L 05/02/24 08:03
Hct 29.2 % (39.0-52.0) L 05/02/24 08:03
Plt Count 263 10^3/uL (130-400) 05/02/24 08:03
Sodium 137 mmol/L (135-145) 05/02/24 08:03
Potassium 4.0 mmol/L (3.5-5.1) 05/02/24 08:03
BUN 55 mg/dl (9-20) H 05/02/24 08:03
Creatinine 1.3 mg/dL (0.7-1.3) 05/02/24 08:03
Glucose 188 mg/dl (70-99) H 05/02/24 08:03
Vital Signs and I&O:
Vital Signs
Temp Pulse Resp BP Pulse Ox
97.5 F 89 24 113/85 97
05/02/24 07:20 05/02/24 08:34 05/02/24 07:20 05/02/24 08:34 05/02/24 07:20
Vital Signs
Temp Pulse Resp BP Pulse Ox
97.5 F 89 24 113/85 97
05/02/24 07:20 05/02/24 08:34 05/02/24 07:20 05/02/24 08:34 05/02/24 07:20
Intake & Output
04/30/24 05/01/24 05/02/24 05/03/24
06:59 06:59 06:59 06:59
Intake Total 1200 / 1200 1440 / 1440 1260 / 1260
Output Total 2200 / 2200 1900 / 1900 1900 / 1900
Balance -1000 / -1000 -460 / -460 -640 / -640
Physical Exam
Physical Exam
GEN: No distress, awake, alert, oriented x3
HEENT: supple, anicteric, mmm
LUNGS: Wearing O2 at 11L midflow. No wheezes
CV: Reg, S1/S2, 3/6 syst murmur
EXT: No clubbing, cyanosis, or edema
NEURO: Gross non-focal
SKIN: Warm, dry, no rash
--- NOTE | 2024-05-02 09:39 | W.PN.PAL2 ---
Today's Communication
-
palliative care follow up:
spoke with patient about palliative care vs hospice services.
at this time, strongly recommended hospice
patient plans to speak with hospice again this morning, and with his at noon
code status DNR
communication with team
total time 20 min
Pain & Symptom Assessment
Patient Symptoms
Patient Symptoms: Dyspnea
Objective Data
-
Objective Data:
Vital Signs
Temp Pulse Resp BP Pulse Ox
97.5 F 89 24 113/85 97
05/02/24 07:20 05/02/24 08:34 05/02/24 07:20 05/02/24 08:34 05/02/24 07:20
Laboratory Results
05/02/24 08:03
05/02/24 08:03
Total Protein 5.6 g/dl (6.3-8.2) L 04/28/24 05:05
Albumin 3.5 g/dl (3.5-5.0) 04/28/24 05:05
Palliative Performance Scale
Palliative Performance Scale:
PPS Level Ambulation Activity & Evidence of Disease Self Care Intake Conscious Level
100% Full Normal Activity & Work; Full Intake Full
No Evidence of Disease
90% Full Normal Activity & Work; Full Normal Full
Some Evidence of Disease
80% Full Normal Activity with Effort Full Normal or Full
Some Evidence of Disease Reduced
70% Reduced Unable Normal Job/Work Full Normal or Full
Significant Disease Reduced
60% Reduced Unable Hobby/Housework Occasional Normal or Full or Confusion
Significant Disease Assistance Reduced
50% Mainly Sit/Lie Unable to do Any Work Considerable Normal or Full or Confusion
Extensive Disease Assistance Req'd Reduced
40% Mainly in Bed Unable to do Most Activity Mainly Assistance Normal or Full or Drowsy;
Extensive Disease Reduced +/- Confusion
30% Totally Bed Unable to do Any Activity Total Care Normal or Full or Drowsy;
Bound Extensive Disease Reduced +/- Confusion
20% Totally Bed Bound Unable to do Any Activity Total Care Minimal to Full or Drowsy;
Extensive Disease Sips +/- Confusion
10% Totally Bed Bound Unable to do Any Activity Total Care Mouth Care Drowsy or Coma;
Extensive Disease Only +/- Confusion
0%
PPS Score Level:
Palliative Performance Score Response
Palliative Performance Score Response: 50%
[2024-05-02 11:34] VITALS: BP 104/72
--- NOTE | 2024-05-02 12:38 | W.PN.ONC2 ---
Today's Communication / Plan
-
.
Impression
Impression
88yo M last seen by Dr. Rubalcava in January 2024 for management of metastatic urothelial cancer with lung mets admitted with acute on chronic respiratory failure. He has remained off antineoplastic therapy since December 2023. His CT chest showed
bilateral pleural effusions, chronic fibrosis, and increased bilateral interstitial and airspace opacities. He is on chronic prednisone therapy for ILD thought to be from prior amiodarone vs pembro therapy managed by Dr. Faustin.
acute on chronic HFpEF
PAF
ILD
CKD
anemia with reticulocytosis (6.2), elev LDH, and haptoglobin <10. Check DRAKE to determine if immune mediated hemolysis
Plan
Plan
OP PET and Dr. Rubalcava follow up is planned for June 2024 if pt would like to continue malignancy surveilence. No further inpatient recommendations. Oncology will sign off at this time. Please reach out with any questions or concerns.
ongoing management of acute respiratory failure per cardiology and pulmonary
Subjective/Objective
Subjective
no new complaints
Vital Signs:
Vital Signs
Temp Pulse Resp BP Pulse Ox
97.8 F 89 22 104/72 94
05/02/24 11:34 05/02/24 11:34 05/02/24 11:34 05/02/24 11:34 05/02/24 11:34
Lab Results:
Laboratory Data
WBC 10.3 10^3/uL (4.8-10.8) 05/02/24 08:03
Hgb 9.0 g/dL (13.0-18.0) L 05/02/24 08:03
Plt Count 263 10^3/uL (130-400) 05/02/24 08:03
eGFR 53.50 05/02/24 08:03
--- NOTE | 2024-05-02 14:42 | HOSPNOTE ---
Met with patient and spouse. Patient would like to go home on Sunday with hospice 05/05. I will need to order all equipment to be delivered. Spouse is very tearful and needs much support. Plan is home on Sunday with hospice. OOH DNR will be needed
on chart. Transport needs to be arranged for 12 noon if possible. CM updated and Attending.
--- NOTE | 2024-05-02 14:57 | CM ---
Addendum entered by Joseph Sagastume 05/02/24 16:22:
Signed OOH DNR signed on chart
Ambulance transport confirmed for 12 pm noon on 05/05. Forms on chart
Spoke w/ spouse, confirmed d/c plan for Sunday
Original Note:
Chart reviewed for d/c planning. Pt and family agreeable to hospice at d/c
Per [facility]/ patient account liaison, plan is for pt to d/c home 05/05. Equipment to be ordered and delivered prior to then.
OOH DNR will be on chart for hospitalist to sign
Transport requested for 12 pm noon
Plan: Home w/ hospice on 05/05
[2024-05-02 15:40] VITALS: BP 103/71
[2024-05-02 19:50] VITALS: BP 114/71
[2024-05-02] MEDS: LIPITOR 10 MG PO ×2 (20:49→20:56)
[2024-05-02] MEDS: PROSCAR 5 MG PO (20:57)
[2024-05-02] MEDS: AFRIN NASAL SPRAY NASAL (21:13)
[2024-05-02 22:53] VITALS: BP 86/58
[2024-05-03] VITALS (7 sets, daily range): BP systolic 93–122; BP diastolic 62–71; BMI 24.5
[2024-05-03] MEDS: XOPENEX 1.25 MG INHALANT SOLUTION INH ×3 (07:10→19:24)
[2024-05-03] MEDS: ATROVENT NEBULES 0.5 MG INH ×3 (07:10→19:24)
--- NOTE | 2024-05-03 07:53 | W.PN.HOSP.TC ---
Today's Communication/Plan
-
For home on hospice Sunday
Assessment / Plan
Assessment / Plan
88yo M with PMHX of ILD with chronic respiratory failure on up to 10L home O2, Afib on ELiquis, s/p bioprosthetic valve, bladder cancer s/p resection with metastatic disease BPH, GERD and HLD came with worsening hypoxia, managed for CHF
exacerbation, superiposed on possible ILD and cannot exclude CAP. Hemoptysis and increased cough at home. Also was titrating down Prednisone at home after recent hospitalization, currently on 20mg
A/P:
#Acute on chronic hypoxic respiratory failure
Currently requiring 10 L of oxygen, down from 14-15 L, he wears 6 L at baseline
Multifactorial, due to his progressive ILD, CHF, and possible pneumonia
Patient has been informed today and multiple times that he is hospice appropriate, and recommend DNR
Palliative care following. Patient has agreed to DNR status on 05/01, agreed to hospice 05/02
For home on hospice Sunday
#Acute heart failure with a preserved ejection fraction
Appreciate cardiology input, patient's hypoxemia is due to his ILD and pneumonia
Patient is down 3.7 kg on IV Lasix
Cardiology recommends holding IV Lasix for now
#Acute ILD flare
Appreciate pulmonology input, continue IV steroids
#Possible multifocal pneumonia with reactive mediastinal lympadenopathy
Appreciate pulmonology input, continue Rocephin/Doxy, bronchodilators, mucolytics, antitussives
#JUAN on CKD stage 3a
Monitor
#Afib, paroxysmal with intermittent rapid ventricular
#Nonsustained ventricular tachycardia
Continue Tikosyn, Eliquis
Unable to increase Toprol XL secondary to soft blood pressures
Changed bronchodilators to Xopenex
IV metoprolol as needed
#Metastatic bladder CA previously on Keytruda, now on no chemo
#HLD
Continue home meds
#Anemia, macrocytic with elevated retics
#Hemoptysis (minimal, streaks of blood with cough)
Elevated LDH
Seen by hematology, suspect worsening anemia is due to dapsone
DVT ppx - eliquis
Full code
Total time spent to see the patient on the floor, examine the patient, review data and lab results, discuss treatment plan with patient, nursing staff around 41 minutes.
Physical Exam
General: Appears chronically ill, no acute distress
HEENT: Normocephalic, Atraumatic, EOMI, MMM
Respiratory: Bibasilar crackles
Cardiac: Normal S1/S2, Regular Rate and Rhythm
GI: Soft, Nontender, Nondistended, Normal Bowel Sounds
Extremities: No Clubbing, Cyanosis, or Edema
Neuro: Nonfocal/Grossly Intact
Psych: Calm, Cooperative
Anticipated Discharge: 24 - 48 hours
Subjective/Interval History
-
Date of Service: May 03, 2024
Still with severe ACUÑA. No CP/palp. No fever, no vomiting.
Objective Data
-
Labs:
Laboratory Results
05/03/24
06:00
WBC Pending
Hgb Pending
Hct Pending
Plt Count Pending
Sodium Pending
Potassium Pending
Chloride Pending
Carbon Dioxide Pending
BUN Pending
Creatinine Pending
Glucose Pending
Calcium Pending
Vital Signs:
Vital Signs
Temp Pulse Resp BP Pulse Ox
97.9 F 85 18 94/64 95
05/03/24 03:00 05/03/24 07:13 05/03/24 07:13 05/03/24 03:00 05/03/24 07:13
I&O
05/02/24 05/03/24 05/04/24
06:59 06:59 06:59
Intake Total 1260 / 1260 1060 / 1060
Output Total 1900 / 1900 1175 / 1175
Balance -640 / -640 -115 / -115
[2024-05-03 08:28] LABS: Hematocrit 28.4 % (39.0-52.0); Mean Corp Hgb Conc. 31.7 g/dL (33.0-37.0); Mean Corpuscular Hgb 31.7 pg (27.0-31.0); Mean Platelet Volume 10.1 fL (7.4-10.4); Platelet Count 260 10^3/uL (130-400); Red Blood Cell Count 2.84 10^6/uL (4.70-6.10); Red Cell Dist. Width 16.3 % (11.5-14.5); White Blood Cell Count 10.4 10^3/uL (4.8-10.8)
[2024-05-03 08:59] LABS: Blood Urea Nitrogen 55 mg/dl (9-20); Calcium 8.9 mg/dl (8.4-10.2); Carbon Dioxide 31 mmol/L (22-30); Chloride 98 mmol/L (98-107); Estimated Creatinine Clearance 45 ml/min; Glucose 166 mg/dl (70-99); Magnesium 2.3 mg/dl (1.6-2.3); Potassium 4.2 mmol/L (3.5-5.1); Sodium 136 mmol/L (135-145)
[2024-05-03] MEDS: AFRIN NASAL SPRAY NASAL ×2 (09:00→20:27)
[2024-05-03] MEDS: STERILE WATER FOR INJECTION 10 ML IV (09:06)
[2024-05-03] MEDS: ROCEPHIN 1000 MG IV (09:06)
[2024-05-03] MEDS: SOLU-MEDROL PF 40 MG IV ×2 (09:06→17:18)
[2024-05-03] MEDS: DAPSONE 50 MG PO ×2 (09:06→20:20)
[2024-05-03] MEDS: TIKOSYN 250 MCG PO ×2 (09:07→20:20)
[2024-05-03] MEDS: MUCINEX 600 MG PO ×2 (09:07→20:20)
[2024-05-03] MEDS: ELIQUIS 5 MG PO ×2 (09:07→20:19)
[2024-05-03] MEDS: TOPROL XL PO (09:08)
[2024-05-03] MEDS: VIBRAMYCIN 100 MG PO (09:08)
[2024-05-03] MEDS: PROTONIX 40 MG PO (09:08)
--- NOTE | 2024-05-03 10:53 | CM ---
CM reviewed chart, patient seen bedside, patient reports no needs to CM at this time. Patient reports he will be discharging home Sunday, Hospice to admit Sunday. Patient will require ambulance transport, forms on chart. CM will continue to
follow for all discharge planning needs.
Plan; home with Hospice 05/05/24, ambulance forms on chart
--- NOTE | 2024-05-03 15:31 | W.PN.CARDCBS ---
Today's Communication / Plan
-
Restart oral furosemide
See below for other medication recommendations
We will sign off, please call if problems
Impression / Plan
-
PCP: Brant Kruse MD
Primary Console Attendant: Dr. Tomi Ring
Primary Car Painter: Dr. Holly Dixon at [facility]
Impression:
Presented with SOB and worsening hypoxia
Acute HFpEF
Paroxysmal afib/aflutter/atach
s/p PVI 10/08/2019
s/p PVI, posterior wall ablation, mitral annular flutter ablation 11/17/2020
s/p posterior L atrial wall ablation, right atrial tachycardia ablation 06/30/2021
Failed sotalol
Chronic amiodarone therapy from 01/2022 until 09/12/23, stopped due to amio lung toxicity
s/p [employer] loop recorder 11/15/23
s/p complex ablation of 3 left atrial tachycardias and 2 right atrial tachycardias and SVT 01/16/2024
A-fib recurrence 01/17/2024 status post successful cardioversion in ER
s/p Left Atach and Right Atach ablations 01/16/24
Tikosyn loading 01/19/24
Chronic anticoagulation with Eliquis
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
Bladder cancer s/p L robotic nephroureterectomy 09/20/2022, multiple TURBTs with new bladder tumors s/p resection
New metastatic disease to lung, started PadCev 12/19/23 weekly with Keytruda q 21 days first dose 12/19/23, also prednisone and bactrim m,w,f
h/o nephrolithiasis with stone removal and stent placement
Chronic renal insufficiency
h/o aortic valve replacement 2007
HLD
BPH
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
Echo 09/05/23: EF 60 to 65%, stage III diastolic dysfunction, mild concentric LVH, dilated RV, severely dilated atria, mild to moderate MR, well-seated #23 AVR with peak/mean gradients 10/5 mmHg, moderate TR, PAP 57 mmHg
Echo 01/21/24: EF 59%, mild concentric LVH, stage III diastolic dysfunction, normal RV size and function, well-seated tissue AVR peak/mean 23/11 mmHg without aortic regurgitation, mild to moderate TR with PAP 35 to 40 mmHg
Plan:
He appears stable from a call standpoint. Plan is to go to hospice at home on Sunday.
Creatinine is stable at 1.3. In order to increase likelihood of maintaining patient comfort, will restart oral furosemide at admission dose level, which is 20 mg 5 days a week.
Continue metoprolol and dofetilide as ordered, as recurrences of atrial fibrillation would be problematic and likely decrease his quality of life.
Given that patient agrees on hospice, apixaban could be discontinued from my standpoint, if he still wishes to reduce stroke risk apixaban could be continued.
I would be comfortable stopping atorvastatin.
We will sign off, please call if questions.
HPI: 88-year-old man past medical history of interstitial lung disease on 6 L home O2, heart failure with preserved ejection fraction, persistent atrial fibrillation/flutter presenting with worsening of his baseline hypoxia. Previously admitted with
dehydration and Lasix dose was modified approximately 1 month ago. Patient tells me he called our office and was told to take his Lasix 5X weekly 20 mg. Reports some worsening of his lower extremity edema over the last several weeks as well as
weight gain. Tells me blood pressure has been marginal at home, largely running 90s/60s. Also reporting cough over the last several days. Cough is productive and he describes strands of mucus. No fevers.
Progress Note - Console Attendant
Subjective
Date of Service: May 03, 2024:
Plan is for discharge to home hospice Sunday
Medications: Ceftriaxone, doxycycline, Atrovent, Xopenex
102/67, pulse 85, respiratory 18, sats are 93%, comfortable, head neck exam unremarkable, dry crackles in lungs, soft systolic murmur, regular rate and rhythm, not much edema
Hemoglobin is 9, white count 10.4, MCV is 100, platelets are 260, BUN and creatinine are 55 and 1.3, which is stable, peak creatinine had been 1.6
Objective
Labs:
05/03/24 07:55
05/03/24 07:55
Labs
Hgb 9.0 g/dL (13.0-18.0) L 05/03/24 07:55
Hct 28.4 % (39.0-52.0) L 05/03/24 07:55
Plt Count 260 10^3/uL (130-400) 05/03/24 07:55
Sodium 136 mmol/L (135-145) 05/03/24 07:55
Potassium 4.2 mmol/L (3.5-5.1) 05/03/24 07:55
BUN 55 mg/dl (9-20) H 05/03/24 07:55
Creatinine 1.3 mg/dL (0.7-1.3) 05/03/24 07:55
Glucose 166 mg/dl (70-99) H 05/03/24 07:55
Vital Signs and I&O:
Vital Signs
Temp Pulse Resp BP Pulse Ox
36.8 C 85 18 102/67 93
05/03/24 11:21 05/03/24 14:20 05/03/24 14:20 05/03/24 11:21 05/03/24 14:20
Vital Signs
Temp Pulse Resp BP Pulse Ox
36.8 C 85 18 102/67 93
05/03/24 11:21 05/03/24 14:20 05/03/24 14:20 05/03/24 11:21 05/03/24 14:20
Intake & Output
05/01/24 05/02/24 05/03/24 05/04/24
07:59 07:59 07:59 07:59
Intake Total 1440 / 1440 1260 / 1260 1060 / 1060
Output Total 1900 / 1900 1900 / 1900 1175 / 1175
Balance -460 / -460 -640 / -640 -115 / -115
Physical Exam
Physical Exam
See above
[2024-05-03] MEDS: FLUSH (NSS) 1 FLUSH IV (17:19)
[2024-05-03] MEDS: PROSCAR 5 MG PO (20:24)
[2024-05-03] MEDS: LIPITOR 10 MG PO (20:25)
[2024-05-04] MEDS: SOLU-MEDROL PF 40 MG IV ×3 (00:37→21:52)
[2024-05-04 03:14] VITALS: BP 112/64
[2024-05-04 06:00] VITALS: BMI 24.2
[2024-05-04 07:00] VITALS: BP 106/73
[2024-05-04] MEDS: ATROVENT NEBULES 0.5 MG INH ×3 (07:14→19:17)
[2024-05-04] MEDS: XOPENEX 1.25 MG INHALANT SOLUTION INH ×3 (07:14→19:17)
[2024-05-04 07:58] LABS: Hematocrit 29.6 % (39.0-52.0); Hemoglobin 9.3 g/dL (13.0-18.0); Mean Corp Hgb Conc. 31.4 g/dL (33.0-37.0); Mean Corpuscular Hgb 31.5 pg (27.0-31.0); Mean Corpuscular Volume 100.3 fL (80.0-94.0); Mean Platelet Volume 9.6 fL (7.4-10.4); Platelet Count 255 10^3/uL (130-400); Red Blood Cell Count 2.95 10^6/uL (4.70-6.10); Red Cell Dist. Width 16.6 % (11.5-14.5); White Blood Cell Count 9.8 10^3/uL (4.8-10.8)
[2024-05-04] MEDS: DAPSONE 50 MG PO ×2 (08:20→21:51)
[2024-05-04] MEDS: ELIQUIS 5 MG PO ×2 (08:20→21:52)
[2024-05-04] MEDS: PROTONIX 40 MG PO (08:20)
[2024-05-04] MEDS: MUCINEX 600 MG PO ×2 (08:20→21:51)
[2024-05-04] MEDS: AFRIN NASAL SPRAY NASAL ×2 (08:20→21:53)
[2024-05-04] MEDS: TIKOSYN 250 MCG PO ×2 (08:20→21:52)
[2024-05-04] MEDS: LASIX 20 MG PO (08:22)
[2024-05-04] MEDS: STERILE WATER FOR INJECTION IV (08:25)
--- NOTE | 2024-05-04 08:48 | W.PN.HOSP.TC ---
Today's Communication/Plan
-
Discharge home with hospice tomorrow
Assessment / Plan
Assessment / Plan
88yo M with PMHX of ILD with chronic respiratory failure on up to 10L home O2, Afib on ELiquis, s/p bioprosthetic valve, bladder cancer s/p resection with metastatic disease BPH, GERD and HLD came with worsening hypoxia, managed for CHF
exacerbation, superiposed on possible ILD and cannot exclude CAP. Hemoptysis and increased cough at home. Also was titrating down Prednisone at home after recent hospitalization, currently on 20mg
A/P:
#Acute on chronic hypoxic respiratory failure
Currently requiring 8 L of oxygen, down from 14-15 L, he wears 6 L at baseline
Multifactorial, due to his progressive ILD, CHF, and possible pneumonia
Patient has been informed today and multiple times that he is hospice appropriate, and recommend DNR
Palliative care following. Patient has agreed to DNR status on 05/01, agreed to hospice 05/02
For home on hospice Sunday
#Acute heart failure with a preserved ejection fraction
Appreciate cardiology input, patient's hypoxemia is due to his ILD and pneumonia
Patient is down 3.7 kg s/p IV Lasix
Cardiology recommends resuming Lasix 20 mg on SuMoTuThFr
#Acute ILD flare
Pulmonology following
Wean IV steroids, plan to discharge on prednisone 60 mg daily indefinitely to give him more time to say goodbye to his family
#Possible multifocal pneumonia with reactive mediastinal lympadenopathy
Appreciate pulmonology input, status post 7 days Rocephin/Doxy
Continue bronchodilators, mucolytics, antitussives
#JUAN on CKD stage 3a
Monitor
#Afib, paroxysmal with intermittent rapid ventricular
#Nonsustained ventricular tachycardia
Continue Tikosyn, Eliquis
Unable to increase Toprol XL secondary to soft blood pressures
Changed bronchodilators to Xopenex
IV metoprolol as needed
#Metastatic bladder CA previously on Keytruda, now on no chemo
#HLD
Continue home meds
#Anemia, macrocytic with elevated retics
#Hemoptysis (minimal, streaks of blood with cough)
Elevated LDH
Seen by hematology, suspect worsening anemia is due to dapsone
DVT ppx - eliquis
Full code
Total time spent to see the patient on the floor, examine the patient, review data and lab results, discuss treatment plan with patient, nursing staff around 48 minutes.
Physical Exam
General: Appears chronically ill, no acute distress
HEENT: Normocephalic, Atraumatic, EOMI, MMM
Respiratory: Bibasilar crackles
Cardiac: Normal S1/S2, Regular Rate and Rhythm
GI: Soft, Nontender, Nondistended, Normal Bowel Sounds
Extremities: No Clubbing, Cyanosis, or Edema
Neuro: Nonfocal/Grossly Intact
Psych: Calm, Cooperative
Anticipated Discharge: Within 24 hours
Subjective/Interval History
-
Date of Service: May 04, 2024
Patient continues to be severely dyspneic with minimal activity. Denies chest pain, vomiting. No fever.
Objective Data
-
Labs:
Laboratory Results
05/04/24
07:50
WBC 9.8
Hgb 9.3 L
Hct 29.6 L
Plt Count 255
Sodium Pending
Potassium Pending
Chloride Pending
Carbon Dioxide Pending
BUN Pending
Creatinine Pending
Glucose Pending
Calcium Pending
Vital Signs:
Vital Signs
Temp Pulse Resp BP Pulse Ox
97.3 F 85 18 106/73 92
05/04/24 07:00 05/04/24 07:15 05/04/24 07:15 05/04/24 07:00 05/04/24 07:15
I&O
05/03/24 05/04/24 05/05/24
06:59 06:59 06:59
Intake Total 1060 / 1060 937 / 937
Output Total 1175 / 1175 300 / 300
Balance -115 / -115 637 / 637
[2024-05-04 08:51] LABS: Blood Urea Nitrogen 51 mg/dl (9-20); Calcium 8.9 mg/dl (8.4-10.2); Carbon Dioxide 28 mmol/L (22-30); Chloride 103 mmol/L (98-107); Estimated Creatinine Clearance 49 ml/min; Glucose 154 mg/dl (70-99); Magnesium 2.4 mg/dl (1.6-2.3); Potassium 4.7 mmol/L (3.5-5.1); Sodium 138 mmol/L (135-145); eGFR 58.89
[2024-05-04 11:26] VITALS: BP 100/62
[2024-05-04] MEDS: TOPROL XL PO (11:34)
[2024-05-04 15:00] VITALS: BP 91/61
--- NOTE | 2024-05-04 17:00 | W.PN.UPDATE ---
Update Note
Progress Note Update
Discharge diagnosis:
Acute on chronic hypoxemic respiratory failure
Acute interstitial lung disease exacerbation
Acute heart failure with preserved ejection fraction
Possible multifocal pneumonia with reactive mediastinal lymphadenopathy
Paroxysmal atrial fibrillation with intermittent rapid ventricular response
Nonsustained ventricular tachycardia
Acute kidney injury superimposed on stage IIIa chronic kidney disease
Metastatic bladder cancer
Macrocytic anemia
Hemoptysis
Consults: Cardiology, pulmonology, palliative care, hematology/oncology
Hospital course:
88-year-old male with a past medical history of chronic hypoxic respiratory failure on 6-10 L at baseline, ILD, CHF, atrial fibrillation on Eliquis, and metastatic bladder cancer was admitted for acute on chronic hypoxic respiratory failure
secondary to ILD exacerbation, CHF exacerbation, and possible multifocal pneumonia. Patient was seen in conjunction with cardiology, pulmonology, and palliative care. He was diuresed with IV Lasix, and cardiology transitioned him to his home oral
Lasix dose. He was treated with IV steroids and IV antibiotics. He initially required 14-15 L of oxygen, and was weaned down to 8 L.
Patient was informed in February 2024 that his ILD is progressive, and that he is hospice appropriate. At that time, he was not ready. After multiple goals of care discussion with patient this hospital admission, patient did agree to go home on
hospice. He has completed a full course of antibiotics. He will be discharged on prednisone 60 mg indefinitely, to give him time to say goodbye to his family.
Disposition: Home with hospice
Discharge planning: Required 45 minutes
[2024-05-04 19:47] VITALS: BP 106/62
[2024-05-04] MEDS: PROSCAR 5 MG PO (21:52)
[2024-05-04] MEDS: LIPITOR 10 MG PO (21:52)
[2024-05-04 23:19] VITALS: BP 107/68
[2024-05-05 00:19] VITALS: BP 107/68
[2024-05-05 04:03] VITALS: BP 108/77
[2024-05-05 06:00] VITALS: BMI 24.1
[2024-05-05 07:00] VITALS: BP 103/70
[2024-05-05] MEDS: ATROVENT NEBULES INH ×2 (08:11→13:46)
[2024-05-05] MEDS: XOPENEX 1.25 MG INHALANT SOLUTION INH ×2 (08:11→13:46)
[2024-05-05] MEDS: LASIX 20 MG PO (08:26)
[2024-05-05] MEDS: ELIQUIS 5 MG PO (08:26)
[2024-05-05] MEDS: DAPSONE 50 MG PO (08:26)
[2024-05-05] MEDS: AFRIN NASAL SPRAY NASAL (08:26)
[2024-05-05] MEDS: TIKOSYN 250 MCG PO (08:27)
[2024-05-05] MEDS: PROTONIX 40 MG PO (08:27)
[2024-05-05] MEDS: TOPROL XL PO (08:27)
[2024-05-05] MEDS: MUCINEX 600 MG PO (08:27)
[2024-05-05] MEDS: SOLU-MEDROL PF 40 MG IV (08:27)
[2024-05-05 11:31] VITALS: BP 106/66
--- NOTE | 2024-05-05 12:00 | W.PN.HOSP.TC ---
Today's Communication/Plan
-
Discharge to home hospice
Assessment / Plan
Assessment / Plan
88yo M with PMHX of ILD with chronic respiratory failure on up to 10L home O2, Afib on ELiquis, s/p bioprosthetic valve, bladder cancer s/p resection with metastatic disease BPH, GERD and HLD came with worsening hypoxia, managed for CHF
exacerbation, superiposed on possible ILD and cannot exclude CAP. Hemoptysis and increased cough at home. Also was titrating down Prednisone at home after recent hospitalization, currently on 20mg
A/P:
#Acute on chronic hypoxic respiratory failure
Currently requiring 8 L of oxygen, down from 14-15 L, he wears 6 L at baseline
Multifactorial, due to his progressive ILD, CHF, and possible pneumonia
Patient has been informed today and multiple times that he is hospice appropriate, and recommend DNR
Palliative care following. Patient has agreed to DNR status on 05/01, agreed to hospice 05/02
For home on hospice Sunday
#Acute heart failure with a preserved ejection fraction
Appreciate cardiology input, patient's hypoxemia is due to his ILD and pneumonia
Patient is down 3.7 kg s/p IV Lasix
Cardiology recommends resuming Lasix 20 mg on SuMoTuThFr
#Acute ILD flare
Pulmonology following
Wean IV steroids, plan to discharge on prednisone 60 mg daily indefinitely to give him more time to say goodbye to his family
#Possible multifocal pneumonia with reactive mediastinal lympadenopathy
Appreciate pulmonology input, status post 7 days Rocephin/Doxy
Continue bronchodilators, mucolytics, antitussives
#JUAN on CKD stage 3a
Monitor
#Afib, paroxysmal with intermittent rapid ventricular
#Nonsustained ventricular tachycardia
Continue Tikosyn, Eliquis
Unable to increase Toprol XL secondary to soft blood pressures
Changed bronchodilators to Xopenex
IV metoprolol as needed
#Metastatic bladder CA previously on Keytruda, now on no chemo
#HLD
Continue home meds
#Anemia, macrocytic with elevated retics
#Hemoptysis (minimal, streaks of blood with cough)
Elevated LDH
Seen by hematology, suspect worsening anemia is due to dapsone
DVT ppx - eliquis
Full code
Discharge today to home hospice. 31 minutes were utilized on discharge planning and preparation, communication with medical team
Anticipated Discharge: Today
Subjective/Interval History
-
Date of Service: May 05, 2024
Seen and examined at the bedside. No acute events overnight. AFVSS this morning on baseline oxygen
He states he feels okay and is ready for discharge
Transport at noon for home hospice
Objective Data
-
Vital Signs:
Vital Signs
Temp Pulse Resp BP Pulse Ox
98.3 F 84 18 106/66 95
05/05/24 11:31 05/05/24 11:31 05/05/24 11:31 05/05/24 11:31 05/05/24 11:31
I&O
05/04/24 05/05/24 05/06/24
06:59 06:59 06:59
Intake Total 937 / 937 1380 / 1380
Output Total 300 / 300 1850 / 1850
Balance 637 / 637 -470 / -470
Review of Systems
-
History Source: Patient
All other systems: Reviewed and negative
Physical Exam
-
General: Well Nourished, No Apparent Distress and Comfortable
HEENT: Normocephalic, Atraumatic and Moist Mucous Membranes
Respiratory: Clear to Auscultation and Non Labored Respirations
Cardiac: Regular Rhythm and S1/S2; Negative Murmur
GI: Soft, Nontender and Nondistended
Musculoskeletal: No Clubbing, No Cyanosis and No Edema
Skin: Warm, Dry and Normal Turgor
Neuro: Nonfocal/Grossly Intact
Psych: Calm
--- NOTE | 2024-05-05 14:33 | W.DCSUMMARY ---
Discharge Summary
Discharge Data
Date of Admission: 04/26/24
Date of Discharge: 05/05/24
-
Pending Results: No
Hospital Course
88-year-old male with chronic hypoxemic respiratory failure (6 L baseline), HFpEF, ILD, PAF on Eliquis, CKD 3, metastatic urothelial cell cancer that presented to the hospital with worsening hypoxia, oxygen requirements up to 15 L. Multifactorial
process secondary to progressive ILD, CHF with restrictive physiology, likely underlying pneumonia. Was treated with IV Lasix and steroid for heart failure and ILD flare and IV antibiotics for his pneumonia. Was treated supportively with
bronchodilators, mucolytic's, antitussives. Treated for JUAN on CKD stage III AA as well. Ultimately palliative care was consulted and hospice was pursued. Case management assisted in arranging for home hospice. To be placed onto comfort
medications by hospice service after discharge.
Discharge Plan
-
Patient Disposition: Home with Hospice
Discharge Diagnosis/Procedures: Acute on chronic hypoxic respiratory failure, interstitial lung disease exacerbation, congestive heart failure exacerbation, pneumonia
Condition: Serious
Diet: Regular
Activity: As tolerated
Other Services: Hospice
Instructions: *[facility] Heart Failure Instructions
Referrals:
Brant Kruse MD [Family Provider] - in one week
Prescriptions:
New
prednisone 20 mg tablet
60 mg PO DAILY 30 Days Qty: 90 0RF
Continued
finasteride 5 MG tablet
5 mg PO HS
simvastatin 10 MG tablet
10 mg PO HS
dofetilide 250 mcg Capsule
250 mcg PO Q12 30 Days Qty: 60 0RF
Eliquis 5 mg Tablet
5 mg PO BID Qty: 0 0RF
dapsone 25 mg Tablet
50 mg PO BID
pantoprazole [Protonix] 40 mg tablet,delayed release (DR/EC)
40 mg PO DAILY Qty: 30 0RF
metoprolol succinate 25 mg tablet extended release 24 hr
25 mg PO DAILY 30 Days Qty: 30 0RF
furosemide [Lasix] 20 mg Tablet
20 mg PO SUMOTUTHFR
Afrin (oxymetazoline) 0.05 % Mist
1 spray INTRANASAL DAILYPRN PRN (Reason: dryness)
Nasogel 0.9 % [place] Gel
1 applic INTRANASAL BIDPRN PRN (Reason: nose bleeds)
Discontinued
prednisone 10 mg tablet
20 mg PO DAILY
Discharge Orders:
Discharge Patient (As Directed); Ordered 05/05/24
Ordered By: Jose Vazquez
Discharge Date and Time
Print Language: SWEDISH
[2024-05-05 15:00] VITALS: BP 104/68
--- NOTE | 2024-05-06 10:12 | W.HF.CON ---
Heart Failure
- LV Function
Left ventricular function study result: LV Ejection fraction >/= 50%
Ejection Fraction Percentage: 60-65
- ARNI
Patient already on ARNI: No
Heart Failure ARNI Not Indicated: LV Ejection Fraction >/= 40%
- ACEI/ARB
Patient already on ACEI/ARB: No
Heart Failure ACEI/ARB Not Indicated: LV Ejection Fraction > 40%
- Beta Mariella
Patient already on Evidence Based Beta Mariella: Yes
- Mineralocorticord Receptor Antagonist
Patient already on MRA: No
Heart Failure MRA Not Indicated: LV Ejection Fraction > 40%
- SGLT-2 Inhibitor
Patient already on SGLT-2 Inhibitor: No
Heart Failure SGLT-2 Inhibitor Contraindication: Comfort Measures
- Afib Anticoagulation
Patient already on Anticoagulation for Afib: Yes
- NYHA CHF Classification
NYHA CHF Classification Level: Class III - Symptoms w/ min exertion, interferes w/ nml daily activity (on home oxygen, ILD)
- ACC/AHA Stage
ACC/AHA Stage: Stage C: Symptomatic Heart Failure
== END 2024-05-05 16:10 | disposition hospice, home (50) | DRG 196 ==
LOC: 4 WEST ACU 15:36
PROVIDERS: Family Medicine; Internal Medicine; Physician Assistant Medical; ADMITTING PHYSICIAN Hospitalist; ATTENDING PHYSICIAN Internal Medicine; CONSULT PHYSICIAN Internal Medicine Cardiovascular Disease; CONSULT PHYSICIAN Internal Medicine Critical Care Medicine; CONSULT PHYSICIAN Internal Medicine Hospice and Palliative Medicine; EMERGENCY PHYSICIAN Emergency Medicine; FAMILY PHYSICIAN Internal Medicine; OTHER PHYSICIAN Internal Medicine Hematology & Oncology
DX: J84.112 Idiopathic pulmonary fibrosis (principal); I50.33 Acute on chronic diastolic (congestive) heart failure; J96.21 Acute and chronic respiratory failure with hypoxia; J18.9 Pneumonia, unspecified organism; J44.0 Chronic obstructive pulmonary disease with (acute) lower respiratory infection; I48.19 Other persistent atrial fibrillation; N17.9 Acute kidney failure, unspecified; C78.02 Secondary malignant neoplasm of left lung; D84.821 Immunodeficiency due to drugs; I48.92 Unspecified atrial flutter; R04.2 Hemoptysis; N18.32 Chronic kidney disease, stage 3b; C67.9 Malignant neoplasm of bladder, unspecified; Z79.01 Long term (current) use of anticoagulants; Z51.5 Encounter for palliative care; Z87.442 Personal history of urinary calculi; N40.0 Benign prostatic hyperplasia without lower urinary tract symptoms; Z87.891 Personal history of nicotine dependence; Z99.81 Dependence on supplemental oxygen; Z95.2 Presence of prosthetic heart valve; E78.00 Pure hypercholesterolemia, unspecified; D53.9 Nutritional anemia, unspecified; Z79.52 Long term (current) use of systemic steroids; D63.1 Anemia in chronic kidney disease; Z90.5 Acquired absence of kidney; Z90.79 Acquired absence of other genital organ(s); R70.1 Abnormal plasma viscosity; Z11.52 Encounter for screening for COVID-19
CPT/HCPCS: 93308; 71045; 71250; 80048; 80053; 82607; 82728; 82746; 83010; 83540; 83550; 83615; 83735; 83880; 84145; 84443; 85025; 85027; 85045; 86140; 86880; 87205; 87502; 87811; 93005; 93321; 93325; 94640; 96374; 99285

== ENCOUNTER → 2024-07-07 13:24 | Outpatient (REF) | payer OTHER, SELFPAY | LOC: PET 13:24 | PROVIDERS: ATTENDING PHYSICIAN Internal Medicine Hematology & Oncology | DX: C65.2 Malignant neoplasm of left renal pelvis (principal) | CPT/HCPCS: 78815; A9552 ==

== ENCOUNTER → 2024-07-08 08:54 | Outpatient (REF) | payer OTHER, SELFPAY | LOC: RAD 08:54 | PROVIDERS: ATTENDING PHYSICIAN Internal Medicine Critical Care Medicine; FAMILY PHYSICIAN Internal Medicine Geriatric Medicine | DX: J18.9 Pneumonia, unspecified organism (principal) | CPT/HCPCS: 71046 ==